=== PATIENT | female | born 1945 | race Caucasian/White ===

== ENCOUNTER → 2018-12-17 21:41 | Outpatient (CLI) | payer MEDICARE, SELFPAY ==
[2018-12-17 19:07] VITALS: BMI 27.1
== END ==
PROVIDERS: Family Provider Nurse Practitioner; PCP Nurse Practitioner; Referring Provider Nurse Practitioner; Visit Provider Nurse Practitioner
DX: N30.90 Cystitis, unspecified without hematuria (principal)
CPT/HCPCS: 87086; 87088

== ENCOUNTER → 2018-12-27 22:47 | Outpatient (CLI) | payer MEDICARE, SELFPAY ==
[2018-12-17 19:07] VITALS: BMI 27.1
[2018-12-27 22:54] LABS: Absolute Lymphocyte Count 1.95 X10^3/ul (0.83-4.51); Absolute Neutrophil Count 4.6 X10^3/uL (2.0-7.7); Basophil# 0.04 X10^3/uL; Basophil% 0.5 % (0-1); Eosinophil# 0.26 X10^3/uL; Eosinophils% 3.5 % (0-5); Hemoglobin 13.5 g/dl (12.0-15.0); Lymphocyte # 1.95 X10^3/ul (4.0); Lymphocyte % 26.5 % (19-41); Mean Corp Hgb Conc 32.1 g/gl (32-36); Mean Corpuscular Hgb 30.9 pg (27.0-32.0); Mean Corpuscular Volume 96.1 fL (81-99); Mean Platelet Vol. 11.5 fl (6.2-12.0); Monocyte% 6.8 % (0-10); Neutrophil % 62.6 % (47-70); POSITIVE COUNT NO; POSITIVE DIFFERENTIAL NO; POSITIVE MORPHOLOGY NO; Platelet Count 222 K/mm3 (150-450); RBC Distribution Width CV 12.7 % (11.6-14.6); RBC Distribution Width SD 44.3 fl (35.1-43.9); Red Blood Count 4.37 M/mm3 (4.2-5.4); White Blood Count 7.4 K/mm3 (4.4-11.0)
[2018-12-27 23:07] LABS: ALB/GLOB Ratio 1.2 RATIO (0.9-2.4); AST(SGOT) 17 U/L (15-37); Alanine Aminotransfer ALT/SGPT 23 U/L (13-56); Albumin, Serum 4.1 g/dL (3.2-5.0); Alkaline Phosphatase 125 U/L (45-117); Anion Gap 8 (5-15); BUN 17 mg/dL (7-18); BUN/Creat Ratio 14.7 RATIO (10-20); Chloride 107 mmol/L (98-107); Cholesterol 168 mg/dL (200); Creatinine, Serum 1.16 mg/dL (0.55-1.02); EST Glomerular Filtration Rate 49 mL/min (>60); Est Glom Filt Rate - Afr Amer 59 mL/min (>60); Globulin 3.4 g/dL (2.2-4.2); Glucose 145 mg/dL (74-106); High Density Lipoprotein 48 mg/dL; Protein, Total 7.5 g/dL (6.4-8.2); Rheumatoid Factor < 10.0 IU/mL (<15); Sodium Level 142 mmol/L (136-145); Triglycerides 343 mg/dL; Very Low Density Lipoprotein 69 mg/dL (5-40)
[2018-12-29 15:15] LABS: ANTINUCLEAR ANTIBODIES DIRECT NEGATIVE
== END ==
PROVIDERS: Family Provider Nurse Practitioner; PCP Nurse Practitioner; Referring Provider Nurse Practitioner; Visit Provider Nurse Practitioner
DX: M19.90 Unspecified osteoarthritis, unspecified site (principal); M25.50 Pain in unspecified joint; I10 Essential (primary) hypertension; E78.5 Hyperlipidemia, unspecified
CPT/HCPCS: 80053; 80061; 85025; 86038; 86225; 86235; 86431

== ENCOUNTER → 2019-01-22 21:03 | Outpatient (CLI) | payer MEDICARE, SELFPAY ==
[2019-01-17 11:14] VITALS: BMI 27.1
[2019-01-22 21:43] LABS: ALB/GLOB Ratio 1.3 RATIO (0.9-2.4); AST(SGOT) 19 U/L (15-37); Alanine Aminotransfer ALT/SGPT 20 U/L (13-56); Albumin, Serum 4.2 g/dL (3.2-5.0); Alkaline Phosphatase 101 U/L (45-117); Anion Gap 5 (5-15); BUN 25 mg/dL (7-18); Chloride 109 mmol/L (98-107); Creatinine, Serum 1.19 mg/dL (0.55-1.02); EST Glomerular Filtration Rate 47 mL/min (>60); Est Glom Filt Rate - Afr Amer 57 mL/min (>60); Globulin 3.3 g/dL (2.2-4.2); Glucose 98 mg/dL (74-106); Potassium 4.2 mmol/L (3.5-5.1); Protein, Total 7.5 g/dL (6.4-8.2); Sodium Level 139 mmol/L (136-145)
== END ==
PROVIDERS: Family Provider Nurse Practitioner; PCP Nurse Practitioner; Referring Provider Nurse Practitioner; Visit Provider Nurse Practitioner
DX: E78.1 Pure hyperglyceridemia (principal); R73.9 Hyperglycemia, unspecified
CPT/HCPCS: 80053

== ENCOUNTER → 2019-04-05 | Outpatient (CLI) | payer MEDICARE, SELFPAY ==
[2019-04-05 15:11] VITALS: BMI 27.5
[2019-04-06 01:07] LABS: Absolute Lymphocyte Count 1.95 X10^3/ul (0.83-4.51); Absolute Neutrophil Count 4.8 X10^3/uL (2.0-7.7); Basophil# 0.04 X10^3/uL; Basophil% 0.5 % (0-1); Eosinophil# 0.27 X10^3/uL; Eosinophils% 3.6 % (0-5); Hemoglobin 12.8 g/dl (12.0-15.0); Lymphocyte # 1.95 X10^3/ul (4.0); Lymphocyte % 25.7 % (19-41); Mean Corp Hgb Conc 32.8 g/gl (32-36); Mean Corpuscular Hgb 31.1 pg (27.0-32.0); Mean Corpuscular Volume 94.9 fL (81-99); Mean Platelet Vol. 11.8 fl (6.2-12.0); Monocyte# 0.56 X10^3/uL; Monocyte% 7.4 % (0-10); Neutrophil # 4.77 X10^3/uL (2.7-7.7); Neutrophil % 62.7 % (47-70); Platelet Count 212 K/mm3 (150-450); RBC Distribution Width CV 12.8 % (11.6-14.6); RBC Distribution Width SD 44.1 fl (35.1-43.9); Red Blood Count 4.11 M/mm3 (4.2-5.4); White Blood Count 7.6 K/mm3 (4.4-11.0)
[2019-04-06 01:12] LABS: POSITIVE COUNT NO; POSITIVE DIFFERENTIAL NO; POSITIVE MORPHOLOGY NO
[2019-04-06 01:25] LABS: ALB/GLOB Ratio 1.1 RATIO (0.9-2.4); AST(SGOT) 17 U/L (15-37); Alanine Aminotransfer ALT/SGPT 18 U/L (13-56); Albumin, Serum 3.8 g/dL (3.2-5.0); Alkaline Phosphatase 110 U/L (45-117); Anion Gap 8 (5-15); BUN 20 mg/dL (7-18); BUN/Creat Ratio 18.5 RATIO (10-20); Chloride 107 mmol/L (98-107); Cholesterol 241 mg/dL (200); Creatinine, Serum 1.08 mg/dL (0.55-1.02); EST Glomerular Filtration Rate 53 mL/min (>60); Est Glom Filt Rate - Afr Amer 64 mL/min (>60); Globulin 3.4 g/dL (2.2-4.2); Glucose 127 mg/dL (74-106); High Density Lipoprotein 43 mg/dL; Protein, Total 7.2 g/dL (6.4-8.2); Sodium Level 139 mmol/L (136-145); Triglycerides 360 mg/dL; Very Low Density Lipoprotein 72 mg/dL (5-40)
== END | disposition home or self-care (01) ==
PROVIDERS: Referring Provider Nurse Practitioner; Visit Provider Nurse Practitioner
DX: Z00.00 Encounter for general adult medical examination without abnormal findings (principal)
CPT/HCPCS: 80053; 80061; 85025

== ENCOUNTER → 2020-03-05 21:15 | Outpatient (CLI) | payer MEDICARE, SELFPAY ==
[2020-03-05 20:34] VITALS: BMI 27.0
[2020-03-05 21:29] LABS: Absolute Lymphocyte Count 2.24 X10^3/uL (0.83-4.51); Absolute Neutrophil Count 3.7 X10^3/uL (2.0-7.7); Basophil# 0.05 X10^3/uL; Basophil% 0.7 % (0-1); Eosinophil# 0.27 X10^3/uL; Eosinophils% 3.9 % (0-5); Hemoglobin 12.6 g/dL (12.0-15.0); Lymphocyte # 2.24 X10^3/ul (4.0); Lymphocyte % 32.7 % (19-41); Mean Corp Hgb Conc 33.2 g/dL (32-36); Mean Corpuscular Hgb 31.6 pg (27.0-32.0); Mean Corpuscular Volume 95.2 fL (81-99); Mean Platelet Vol. 11.2 fl (6.2-12.0); Monocyte# 0.59 X10^3/uL; Monocyte% 8.6 % (0-10); NRBC Flagged by Analyzer 0 % (0-5); Neutrophil # 3.68 X10^3/uL (2.7-7.7); Neutrophil % 53.8 % (47-70); Platelet Count 190 K/mm3 (150-450); RBC Distribution Width CV 12.2 % (11.6-14.6); RBC Distribution Width SD 42.6 fl (35.1-43.9); Red Blood Count 3.99 M/mm3 (4.2-5.4); White Blood Count 6.9 K/mm3 (4.4-11.0)
[2020-03-05 21:36] LABS: ALB/GLOB Ratio 1.1 RATIO (0.9-2.4); AST(SGOT) 14 U/L (15-37); Alanine Aminotransfer ALT/SGPT 22 U/L (13-56); Albumin, Serum 3.9 g/dL (3.2-5.0); Alkaline Phosphatase 104 U/L (45-117); Amylase 64 U/L (25-115); Anion Gap 4 (5-15); BUN 22 mg/dL (7-18); BUN/Creat Ratio 16.9 RATIO (10-20); Calcium,Total 9.3 mg/dL (8.5-10.1); Chloride 110 mmol/L (98-107); EST Glomerular Filtration Rate 43 mL/min (>60); Est Glom Filt Rate - Afr Amer 52 mL/min (>60); Globulin 3.4 g/dL (2.2-4.2); Glucose 106 mg/dL (74-106); Lipase 167 U/L (73-393); Potassium 4.2 mmol/L (3.5-5.1); Protein, Total 7.3 g/dL (6.4-8.2); Sodium Level 142 mmol/L (136-145)
[2020-03-05 21:39] LABS: Erythrocyte Sedimentation Rate 9 mm/hr (0-30)
== END ==
PROVIDERS: PCP Nurse Practitioner; Referring Provider Nurse Practitioner; Visit Provider Nurse Practitioner
DX: K57.92 Diverticulitis of intestine, part unspecified, without perforation or abscess without bleeding (principal); R06.02 Shortness of breath
CPT/HCPCS: 80053; 82150; 83690; 85025; 85652

== ENCOUNTER → 2020-04-04 20:30 | Outpatient (CLI) | payer MEDICARE, SELFPAY ==
[2020-04-04 16:20] VITALS: BMI 27.3
[2020-04-04 20:55] LABS: Vitamin B12 407 pg/mL (211-911)
[2020-04-04 21:02] LABS: CRP < 2.90 mg/L (0.0-3.0); Rheumatoid Factor < 10.0 IU/mL (<15)
[2020-04-09 05:29] LABS: ANTINUCLEAR ANTIBODIES DIRECT Negative (Negative)
== END ==
PROVIDERS: PCP Nurse Practitioner; Referring Provider Nurse Practitioner; Visit Provider Nurse Practitioner
DX: M25.50 Pain in unspecified joint (principal); M19.90 Unspecified osteoarthritis, unspecified site; R53.83 Other fatigue; R53.82 Chronic fatigue, unspecified
CPT/HCPCS: 82607; 84443; 86038; 86140; 86225; 86235; 86431

== ENCOUNTER → 2020-05-17 22:01 | Outpatient (CLI) | payer MEDICARE, SELFPAY ==
[2020-04-04 16:20] VITALS: BMI 27.3
[2020-05-17 22:12] LABS: Absolute Neutrophil Count 6.1 X10^3/uL (2.0-7.7); Basophil# 0.05 X10^3/uL; Basophil% 0.5 % (0-1); Eosinophil# 0.33 X10^3/uL; Eosinophils% 3.5 % (0-5); Hematocrit 39.6 % (37-47); Hemoglobin 12.9 g/dL (12.0-15.0); Lymphocyte % 24.2 % (19-41); Mean Corp Hgb Conc 32.6 g/dL (32-36); Mean Corpuscular Hgb 31.6 pg (27.0-32.0); Mean Corpuscular Volume 97.1 fL (81-99); Mean Platelet Vol. 11.4 fl (6.2-12.0); Monocyte# 0.75 X10^3/uL; Monocyte% 7.9 % (0-10); NRBC Flagged by Analyzer 0 % (0-5); Neutrophil # 6.07 X10^3/uL (2.7-7.7); Neutrophil % 63.7 % (47-70); Platelet Count 205 K/mm3 (150-450); RBC Distribution Width CV 12.1 % (11.6-14.6); Red Blood Count 4.08 M/mm3 (4.2-5.4); White Blood Count 9.5 K/mm3 (4.4-11.0)
[2020-05-17 22:27] LABS: ALB/GLOB Ratio 1.2 RATIO (0.9-2.4); AST(SGOT) 18 U/L (15-37); Alanine Aminotransfer ALT/SGPT 26 U/L (13-56); Albumin, Serum 4.1 g/dL (3.2-5.0); Alkaline Phosphatase 128 U/L (45-117); Anion Gap 6 (5-15); BUN 24 mg/dL (7-18); BUN/Creat Ratio 16.9 RATIO (10-20); Calcium,Total 9.2 mg/dL (8.5-10.1); Chloride 111 mmol/L (98-107); Creatinine, Serum 1.42 mg/dL (0.55-1.02); EST Glomerular Filtration Rate 39 mL/min (>60); Est Glom Filt Rate - Afr Amer 47 mL/min (>60); Globulin 3.3 g/dL (2.2-4.2); Glucose 112 mg/dL (74-106); Potassium 4.2 mmol/L (3.5-5.1); Protein, Total 7.4 g/dL (6.4-8.2); Sodium Level 144 mmol/L (136-145)
== END ==
PROVIDERS: PCP Nurse Practitioner; Referring Provider Nurse Practitioner; Visit Provider Nurse Practitioner
DX: I10 Essential (primary) hypertension (principal); E78.5 Hyperlipidemia, unspecified; E55.9 Vitamin D deficiency, unspecified; R53.83 Other fatigue; R42 Dizziness and giddiness
CPT/HCPCS: 80053; 82652; 85025; 86664; 86665

== ENCOUNTER → 2020-07-09 20:56 | Outpatient (CLI) | payer MEDICARE, SELFPAY ==
[2020-07-09 13:52] VITALS: BMI 27.3
[2020-07-09 21:22] LABS: ALB/GLOB Ratio 1.1 RATIO (0.9-2.4); AST(SGOT) 12 U/L (15-37); Alanine Aminotransfer ALT/SGPT 21 U/L (13-56); Albumin, Serum 3.9 g/dL (3.2-5.0); Alkaline Phosphatase 131 U/L (45-117); Anion Gap 8 (5-15); BUN 14 mg/dL (7-18); Calcium,Total 9.2 mg/dL (8.5-10.1); Chloride 108 mmol/L (98-107); Creatinine, Serum 1.27 mg/dL (0.55-1.02); EST Glomerular Filtration Rate 44 mL/min (>60); Est Glom Filt Rate - Afr Amer 53 mL/min (>60); Globulin 3.4 g/dL (2.2-4.2); Glucose 135 mg/dL (74-106); Potassium 3.6 mmol/L (3.5-5.1); Protein, Total 7.3 g/dL (6.4-8.2); Sodium Level 143 mmol/L (136-145)
== END ==
PROVIDERS: PCP Nurse Practitioner; Visit Provider Nurse Practitioner
DX: M48.061 Spinal stenosis, lumbar region without neurogenic claudication (principal)
CPT/HCPCS: 80053

== ENCOUNTER → 2020-08-21 21:18 | Outpatient (CLI) | payer MEDICARE, SELFPAY ==
[2020-08-17 17:22] VITALS: BMI 28.0
[2020-08-21 22:15] LABS: Anion Gap 8 (5-15); BUN 23 mg/dL (7-18); BUN/Creat Ratio 15.9 RATIO (10-20); Calcium,Total 9.4 mg/dL (8.5-10.1); Chloride 106 mmol/L (98-107); Creatinine, Serum 1.45 mg/dL (0.55-1.02); EST Glomerular Filtration Rate 38 mL/min (>60); Est Glom Filt Rate - Afr Amer 45 mL/min (>60); Glucose 112 mg/dL (74-106); Phosphorus 3.6 mg/dL (2.5-4.9); Potassium 4.1 mmol/L (3.5-5.1); Sodium Level 140 mmol/L (136-145)
[2020-08-23 16:08] LABS: Albumin 4.3 g/dL (2.9-4.4); Alpha-1-Globulins 0.2 g/dL (0.0-0.4); Gamma Globulin 0.9 g/dL (0.4-1.8); Immunoglobulin A 146 mg/dL (64-422); Immunoglobulin G 852 mg/dL (586-1602); Immunoglobulin M 105 mg/dL (26-217); PROEL- TOTAL PROTEIN 7.5 g/dL (6.0-8.5)
[2020-08-24 16:08] LABS: PROELU- Albumin, Urine 33.9 % (.); PROELU- Alpha-1-Globulin,Ur 4.5 % (.); PROELU- Alpha-2-Globulin,Ur 25.4 % (.); PROELU- Beta Globulin, Ur 21.7 % (.); PROELU- Gamma Globulin, Ur 14.5 % (.); Total Protein, Ur 11.5 mg/dL (Not Estab.)
== END ==
PROVIDERS: PCP Nurse Practitioner; Referring Provider Nurse Practitioner; Visit Provider Nurse Practitioner
DX: N18.30 Chronic kidney disease, stage 3 unspecified (principal); E55.9 Vitamin D deficiency, unspecified
CPT/HCPCS: 80048; 82306; 82784; 84100; 84165; 84166; 86334

== ENCOUNTER → 2020-10-01 17:27 | Outpatient (CLI) | payer MEDICARE, SELFPAY | PROVIDERS: PCP Nurse Practitioner; Referring Provider Nurse Practitioner; Visit Provider Nurse Practitioner | DX: Z20.828 Contact with and (suspected) exposure to other viral communicable diseases (principal) | CPT/HCPCS: 87635; C9803; U0003 ==

== ENCOUNTER → 2020-11-23 22:12 | Outpatient (CLI) | payer MEDICARE, SELFPAY ==
[2020-11-23 14:45] VITALS: BMI 28.8
[2020-11-23 22:32] LABS: Absolute Lymphocyte Count 1.95 X10^3/uL (0.83-4.51); Absolute Neutrophil Count 6.8 X10^3/uL (2.0-7.7); Basophil# 0.06 X10^3/uL; Basophil% 0.6 % (0-1); Eosinophil# 0.23 X10^3/uL; Eosinophils% 2.4 % (0-5); Hematocrit 40.1 % (37-47); Hemoglobin 12.8 g/dL (12.0-15.0); Lymphocyte # 1.95 X10^3/ul (4.0); Lymphocyte % 20.1 % (19-41); Mean Corp Hgb Conc 31.9 g/dL (32-36); Mean Corpuscular Hgb 30.8 pg (27.0-32.0); Mean Corpuscular Volume 96.6 fL (81-99); Mean Platelet Vol. 11.5 fl (6.2-12.0); Monocyte# 0.69 X10^3/uL; Monocyte% 7.1 % (0-10); NRBC Flagged by Analyzer 0 % (0-5); Neutrophil # 6.75 X10^3/uL (2.7-7.7); Neutrophil % 69.6 % (47-70); Platelet Count 214 K/mm3 (150-450); RBC Distribution Width CV 12.4 % (11.6-14.6); RBC Distribution Width SD 43.9 fl (35.1-43.9); Red Blood Count 4.15 M/mm3 (4.2-5.4); White Blood Count 9.7 K/mm3 (4.4-11.0)
[2020-11-23 22:49] LABS: ALB/GLOB Ratio 1.1 RATIO (0.9-2.4); AST(SGOT) 16 U/L (15-37); Alanine Aminotransfer ALT/SGPT 24 U/L (13-56); Alkaline Phosphatase 133 U/L (45-117); Anion Gap 6 (5-15); BUN 19 mg/dL (7-18); BUN/Creat Ratio 14.5 RATIO (10-20); Calcium,Total 9.2 mg/dL (8.5-10.1); Chloride 106 mmol/L (98-107); Creatinine, Serum 1.31 mg/dL (0.55-1.02); EST Glomerular Filtration Rate 42 mL/min (>60); Est Glom Filt Rate - Afr Amer 51 mL/min (>60); Globulin 3.5 g/dL (2.2-4.2); Glucose 126 mg/dL (74-106); Potassium 3.9 mmol/L (3.5-5.1); Protein, Total 7.5 g/dL (6.4-8.2); Sodium Level 138 mmol/L (136-145)
== END ==
PROVIDERS: PCP Nurse Practitioner; Visit Provider Nurse Practitioner
DX: K57.92 Diverticulitis of intestine, part unspecified, without perforation or abscess without bleeding (principal)
CPT/HCPCS: 80053; 85025

== ENCOUNTER → 2021-01-11 22:12 | Outpatient (CLI) | payer MEDICARE, SELFPAY ==
[2021-01-11 17:09] VITALS: BMI 28.5
== END ==
PROVIDERS: PCP Nurse Practitioner; Visit Provider Nurse Practitioner
DX: N30.90 Cystitis, unspecified without hematuria (principal)
CPT/HCPCS: 87086; 87088; 87186

== ENCOUNTER → 2021-01-23 22:48 | Outpatient (CLI) | payer MEDICARE, SELFPAY ==
[2021-01-11 17:09] VITALS: BMI 28.5
[2021-01-23 23:29] LABS: ALB/GLOB Ratio 1.1 RATIO (0.9-2.4); AST(SGOT) 19 U/L (15-37); Alanine Aminotransfer ALT/SGPT 24 U/L (13-56); Alkaline Phosphatase 118 U/L (45-117); Anion Gap 3 (5-15); BUN 13 mg/dL (7-18); BUN/Creat Ratio 10.8 RATIO (10-20); Calcium,Total 9.3 mg/dL (8.5-10.1); Chloride 107 mmol/L (98-107); Cholesterol 175 mg/dL (200); EST Glomerular Filtration Rate 47 mL/min (>60); Est Glom Filt Rate - Afr Amer 56 mL/min (>60); Globulin 3.6 g/dL (2.2-4.2); Glucose 92 mg/dL (74-106); High Density Lipoprotein 53 mg/dL; Potassium 4.3 mmol/L (3.5-5.1); Protein, Total 7.6 g/dL (6.4-8.2); Sodium Level 139 mmol/L (136-145); Triglycerides 217 mg/dL; Very Low Density Lipoprotein 43 mg/dL (5-40)
== END ==
PROVIDERS: PCP Nurse Practitioner; Visit Provider Nurse Practitioner
DX: E78.5 Hyperlipidemia, unspecified (principal)
CPT/HCPCS: 80053; 80061

== ENCOUNTER → 2021-03-21 21:31 | Outpatient (CLI) | payer MEDICARE, SELFPAY ==
[2021-03-11 11:36] VITALS: BMI 27.7
== END ==
PROVIDERS: PCP Nurse Practitioner; Referring Provider Nurse Practitioner; Visit Provider Nurse Practitioner
DX: N30.90 Cystitis, unspecified without hematuria (principal)
CPT/HCPCS: 87086; 87088; 87186

== ENCOUNTER → 2021-04-08 21:23 | Outpatient (CLI) | payer MEDICARE, SELFPAY ==
[2021-04-08 17:00] VITALS: BMI 28.5
[2021-04-08 21:50] LABS: Cholesterol 232 mg/dL (200); High Density Lipoprotein 53 mg/dL; Triglycerides 301 mg/dL; Very Low Density Lipoprotein 60 mg/dL (5-40)
== END ==
PROVIDERS: PCP Nurse Practitioner; Visit Provider Nurse Practitioner
DX: I10 Essential (primary) hypertension (principal)
CPT/HCPCS: 80061

== ENCOUNTER → 2022-03-08 | Outpatient (CLI) | payer MEDICARE, SELFPAY | END | disposition home or self-care (01) | LOC: LABSPEC 04:09 | PROVIDERS: PCP Nurse Practitioner; Referring Provider Nurse Practitioner; Visit Provider Nurse Practitioner | DX: N30.90 Cystitis, unspecified without hematuria (principal) | CPT/HCPCS: 87077; 87086; 87088; 87186 ==

== ENCOUNTER → 2022-04-16 | Outpatient (CLI) | payer MEDICARE, SELFPAY ==
[2022-04-16 22:24] LABS: Absolute Lymphocyte Count 2.19 X10^3/uL (0.83-4.51); Absolute Neutrophil Count 5.4 X10^3/uL (2.0-7.7); Basophil# 0.07 X10^3/uL; Basophil% 0.8 % (0-1); Eosinophil# 0.29 X10^3/uL; Eosinophils% 3.4 % (0-5); Hematocrit 38.7 % (37-47); Hemoglobin 12.8 g/dL (12.0-15.0); Lymphocyte # 2.19 X10^3/ul (0.83-4.51); Lymphocyte % 25.6 % (19-41); Mean Corp Hgb Conc 33.1 g/dL (32-36); Mean Corpuscular Hgb 32.1 pg (27.0-32.0); Mean Platelet Vol. 11.6 fl (6.2-12.0); Monocyte# 0.58 X10^3/uL; Monocyte% 6.8 % (0-10); NRBC Flagged by Analyzer 0 % (0-5); Neutrophil # 5.41 X10^3/uL (2.7-7.7); Neutrophil % 63.2 % (47-70); Platelet Count 206 K/mm3 (150-450); RBC Distribution Width CV 12.3 % (11.6-14.6); RBC Distribution Width SD 43.9 fl (35.1-43.9); Red Blood Count 3.99 M/mm3 (4.2-5.4); White Blood Count 8.6 K/mm3 (4.4-11.0)
[2022-04-16 22:42] LABS: ALB/GLOB Ratio 1.2 RATIO (0.9-2.4); AST(SGOT) 18 U/L (15-37); Alanine Aminotransfer ALT/SGPT 24 U/L (13-56); Albumin, Serum 3.9 g/dL (3.2-5.0); Alkaline Phosphatase 140 U/L (45-117); Anion Gap 6 (5-15); BUN 17 mg/dL (7-18); Calcium,Total 9.1 mg/dL (8.5-10.1); Chloride 109 mmol/L (98-107); Cholesterol 165 mg/dL (200); Creatinine, Serum 1.54 mg/dL (0.55-1.02); EST Glomerular Filtration Rate 35 mL/min (>60); Est Glom Filt Rate - Afr Amer 42 mL/min (>60); Globulin 3.2 g/dL (2.2-4.2); Glucose 134 mg/dL (74-106); High Density Lipoprotein 47 mg/dL; Potassium 4.3 mmol/L (3.5-5.1); Protein, Total 7.1 g/dL (6.4-8.2); Sodium Level 141 mmol/L (136-145); Triglycerides 337 mg/dL; Very Low Density Lipoprotein 67 mg/dL (5-40)
== END | disposition home or self-care (01) ==
PROVIDERS: PCP Nurse Practitioner; Visit Provider Nurse Practitioner
DX: I10 Essential (primary) hypertension (principal); E78.5 Hyperlipidemia, unspecified
CPT/HCPCS: 80053; 80061; 85025

== ENCOUNTER → 2022-06-11 | Outpatient (CLI) | payer MEDICARE, SELFPAY | END | disposition home or self-care (01) | PROVIDERS: PCP Nurse Practitioner; Visit Provider Nurse Practitioner | DX: N30.90 Cystitis, unspecified without hematuria (principal) | CPT/HCPCS: 87077; 87086; 87088; 87186 ==

== ENCOUNTER → 2022-09-16 | Outpatient (CLI) | payer MEDICARE, SELFPAY | END | disposition home or self-care (01) | PROVIDERS: PCP Nurse Practitioner; Visit Provider Nurse Practitioner | DX: N30.90 Cystitis, unspecified without hematuria (principal) | CPT/HCPCS: 87086; 87088 ==

== ENCOUNTER → 2023-02-02 | Outpatient (CLI) | payer MEDICARE, SELFPAY ==
[2023-02-02 21:01] LABS: Absolute Lymphocyte Count 2.14 X10^3/uL (0.83-4.51); Absolute Neutrophil Count 3.4 X10^3/uL (2.0-7.7); Basophil# 0.04 X10^3/uL; Basophil% 0.6 % (0-1); Eosinophil# 0.26 X10^3/uL; Eosinophils% 4.1 % (0-5); Hematocrit 41.6 % (37-47); Hemoglobin 13.2 g/dL (12.0-15.0); Lymphocyte # 2.14 X10^3/ul (0.83-4.51); Lymphocyte % 33.4 % (19-41); Mean Corp Hgb Conc 31.7 g/dL (32-36); Mean Corpuscular Hgb 31.7 pg (27.0-32.0); Mean Corpuscular Volume 99.8 fL (81-99); Monocyte# 0.52 X10^3/uL; Monocyte% 8.1 % (0-10); NRBC Flagged by Analyzer 0 % (0-5); Neutrophil # 3.43 X10^3/uL (2.7-7.7); Neutrophil % 53.6 % (47-70); Platelet Count 192 K/mm3 (150-450); RBC Distribution Width CV 12.3 % (11.6-14.6); RBC Distribution Width SD 45.2 fl (35.1-43.9); Red Blood Count 4.17 M/mm3 (4.2-5.4); White Blood Count 6.4 K/mm3 (4.4-11.0)
[2023-02-02 21:23] LABS: ALB/GLOB Ratio 1.2 RATIO (0.9-2.4); AST(SGOT) 16 U/L (15-37); Alanine Aminotransfer ALT/SGPT 25 U/L (13-56); Albumin, Serum 3.7 g/dL (3.2-5.0); Alkaline Phosphatase 118 U/L (45-117); Anion Gap 1 (5-15); BUN 20 mg/dL (7-18); BUN/Creat Ratio 14.3 RATIO (10-20); CRP, High Sensitivity Cardiac 0.79 mg/L; Calcium,Total 9.4 mg/dL (8.5-10.1); Chloride 111 mmol/L (98-107); EST Glomerular Filtration Rate 39 mL/min (>60); Est Glom Filt Rate - Afr Amer 47 mL/min (>60); Globulin 3.2 g/dL (2.2-4.2); Glucose 114 mg/dL (74-106); Potassium 4.4 mmol/L (3.5-5.1); Protein, Total 6.9 g/dL (6.4-8.2); Sodium Level 141 mmol/L (136-145); Thyroid Stim Hormone (TSH) 1.76 uIU/mL (0.358-3.74)
[2023-02-03 08:17] LABS: Troponin-I HS 4 pg/mL (3.0-54.0)
[2023-02-03 12:37] LABS: Uric Acid 6.5 mg/dL (2.6-6.0)
[2023-02-04 15:08] LABS: CMV Acute Antibody IgM < 30.0 AU/mL (0.0-29.9); EBV Acute VCA IgM < 36.0 U/mL (0.0-35.9); Lyme Scn Total Ab w/Rflx Negative (Negative)
== END | disposition home or self-care (01) ==
PROVIDERS: PCP Nurse Practitioner; Visit Provider Nurse Practitioner
DX: M25.50 Pain in unspecified joint (principal); R53.83 Other fatigue; M15.0 Primary generalized (osteo)arthritis; R42 Dizziness and giddiness; I10 Essential (primary) hypertension
CPT/HCPCS: 80053; 82607; 84443; 84484; 84550; 85025; 86141; 86618; 86645; 86664; 86665

== ENCOUNTER → 2023-02-25 | Outpatient (CLI) | payer MEDICARE, SELFPAY ==
[2023-02-25 21:24] LABS: Absolute Lymphocyte Count 1.64 X10^3/uL (0.83-4.51); Absolute Neutrophil Count 4.4 X10^3/uL (2.0-7.7); Basophil# 0.04 X10^3/uL; Basophil% 0.6 % (0-1); Eosinophil# 0.28 X10^3/uL; Hematocrit 41.2 % (37-47); Hemoglobin 13.4 g/dL (12.0-15.0); Lymphocyte # 1.64 X10^3/ul (0.83-4.51); Lymphocyte % 23.4 % (19-41); Mean Corp Hgb Conc 32.5 g/dL (32-36); Mean Corpuscular Hgb 32.1 pg (27.0-32.0); Mean Corpuscular Volume 98.6 fL (81-99); Mean Platelet Vol. 11.3 fl (6.2-12.0); Monocyte% 8.6 % (0-10); NRBC Flagged by Analyzer 0 % (0-5); Neutrophil # 4.42 X10^3/uL (2.7-7.7); Neutrophil % 63.1 % (47-70); Platelet Count 213 K/mm3 (150-450); RBC Distribution Width CV 12.3 % (11.6-14.6); RBC Distribution Width SD 44.4 fl (35.1-43.9); Red Blood Count 4.18 M/mm3 (4.2-5.4)
[2023-02-25 21:37] LABS: ALB/GLOB Ratio 1.1 RATIO (0.9-2.4); AST(SGOT) 14 U/L (15-37); Alanine Aminotransfer ALT/SGPT 25 U/L (13-56); Albumin, Serum 3.7 g/dL (3.2-5.0); Alkaline Phosphatase 131 U/L (45-117); Anion Gap 8 (5-15); BUN 15 mg/dL (7-18); BUN/Creat Ratio 12.5 RATIO (10-20); Calcium,Total 9.2 mg/dL (8.5-10.1); Chloride 107 mmol/L (98-107); EST Glomerular Filtration Rate 46 mL/min (>60); Est Glom Filt Rate - Afr Amer 56 mL/min (>60); Globulin 3.5 g/dL (2.2-4.2); Glucose 90 mg/dL (74-106); Protein, Total 7.2 g/dL (6.4-8.2); Sodium Level 143 mmol/L (136-145)
[2023-03-02 14:08] LABS: Vitamin D 1,25-Dihydroxy 43.8 pg/mL (24.8-81.5)
== END | disposition home or self-care (01) ==
PROVIDERS: PCP Nurse Practitioner; Visit Provider Nurse Practitioner
DX: E55.9 Vitamin D deficiency, unspecified (principal); N18.32 Chronic kidney disease, stage 3b
CPT/HCPCS: 80053; 82652; 85025

== ENCOUNTER → 2023-02-26 | Outpatient (CLI) | payer MEDICARE, SELFPAY | END | disposition home or self-care (01) | PROVIDERS: PCP Nurse Practitioner; Referring Provider Nurse Practitioner; Visit Provider Nurse Practitioner | DX: N18.32 Chronic kidney disease, stage 3b (principal) ==

== ENCOUNTER → 2023-03-30 | Outpatient (CLI) | payer MEDICARE, SELFPAY ==
[2023-03-30 23:08] LABS: Absolute Lymphocyte Count 2.17 X10^3/uL (0.83-4.51); Absolute Neutrophil Count 4.2 X10^3/uL (2.0-7.7); Basophil# 0.05 X10^3/uL; Basophil% 0.7 % (0-1); Eosinophil# 0.31 X10^3/uL; Eosinophils% 4.1 % (0-5); Hemoglobin 12.9 g/dL (12.0-15.0); Lymphocyte # 2.17 X10^3/ul (0.83-4.51); Lymphocyte % 28.7 % (19-41); Mean Corp Hgb Conc 32.3 g/dL (32-36); Mean Corpuscular Hgb 31.9 pg (27.0-32.0); Mean Corpuscular Volume 98.8 fL (81-99); Mean Platelet Vol. 11.7 fl (6.2-12.0); Monocyte# 0.75 X10^3/uL; Monocyte% 9.9 % (0-10); NRBC Flagged by Analyzer 0 % (0-5); Neutrophil # 4.24 X10^3/uL (2.7-7.7); Neutrophil % 56.2 % (47-70); Platelet Count 205 K/mm3 (150-450); RBC Distribution Width CV 11.9 % (11.6-14.6); RBC Distribution Width SD 43.7 fl (35.1-43.9); Red Blood Count 4.05 M/mm3 (4.2-5.4); White Blood Count 7.6 K/mm3 (4.4-11.0)
[2023-03-30 23:21] LABS: AST(SGOT) 12 U/L (15-37); Alanine Aminotransfer ALT/SGPT 15 U/L (13-56); Albumin, Serum 3.7 g/dL (3.2-5.0); Alkaline Phosphatase 191 U/L (45-117); Anion Gap 6 (5-15); BUN 19 mg/dL (7-18); BUN/Creat Ratio 17.3 RATIO (10-20); Calcium,Total 9.4 mg/dL (8.5-10.1); Chloride 107 mmol/L (98-107); EST Glomerular Filtration Rate 51 mL/min (>60); Est Glom Filt Rate - Afr Amer 62 mL/min (>60); Globulin 3.6 g/dL (2.2-4.2); Glucose 109 mg/dL (74-106); Potassium 4.2 mmol/L (3.5-5.1); Protein, Total 7.3 g/dL (6.4-8.2); Sodium Level 140 mmol/L (136-145)
[2023-03-30 23:35] LABS: Microalbumin,Random Urine 6.8 mg/L (NO RANGE EST.); Protein, Urine (Random) 7.2 mg/dL (<11.9); Protein:Creat Ratio 94 mg/g CRE (0-200)
[2023-03-31 08:55] LABS: PTHIN 51.4 pg/mL (18.4-80.1)
== END | disposition home or self-care (01) ==
PROVIDERS: PCP Nurse Practitioner; Visit Provider Nurse Practitioner
DX: E55.9 Vitamin D deficiency, unspecified (principal); N18.32 Chronic kidney disease, stage 3b; M25.50 Pain in unspecified joint
CPT/HCPCS: 80053; 82043; 82306; 82570; 83970; 84156; 85025

== ENCOUNTER → 2023-04-16 | Outpatient (CLI) | payer MEDICARE, SELFPAY ==
[2023-04-16 20:54] LABS: Absolute Lymphocyte Count 2.43 X10^3/uL (0.83-4.51); Absolute Neutrophil Count 4.4 X10^3/uL (2.0-7.7); Basophil# 0.07 X10^3/uL; Basophil% 0.9 % (0-1); Eosinophil# 0.33 X10^3/uL; Eosinophils% 4.2 % (0-5); Hematocrit 41.4 % (37-47); Hemoglobin 13.6 g/dL (12.0-15.0); Lymphocyte # 2.43 X10^3/ul (0.83-4.51); Lymphocyte % 30.8 % (19-41); Mean Corp Hgb Conc 32.9 g/dL (32-36); Mean Corpuscular Hgb 31.9 pg (27.0-32.0); Mean Platelet Vol. 11.4 fl (6.2-12.0); Monocyte# 0.62 X10^3/uL; Monocyte% 7.9 % (0-10); NRBC Flagged by Analyzer 0 % (0-5); Neutrophil # 4.41 X10^3/uL (2.7-7.7); Neutrophil % 55.9 % (47-70); Platelet Count 226 K/mm3 (150-450); RBC Distribution Width CV 12.1 % (11.6-14.6); RBC Distribution Width SD 43.3 fl (35.1-43.9); Red Blood Count 4.27 M/mm3 (4.2-5.4); White Blood Count 7.9 K/mm3 (4.4-11.0)
[2023-04-16 21:04] LABS: ALB/GLOB Ratio 1.1 RATIO (0.9-2.4); AST(SGOT) 16 U/L (15-37); Alanine Aminotransfer ALT/SGPT 19 U/L (13-56); Albumin, Serum 3.8 g/dL (3.2-5.0); Alkaline Phosphatase 198 U/L (45-117); Anion Gap 8 (5-15); BUN 20 mg/dL (7-18); Calcium,Total 9.3 mg/dL (8.5-10.1); Chloride 106 mmol/L (98-107); Creatinine, Serum 1.33 mg/dL (0.55-1.02); EST Glomerular Filtration Rate 41 mL/min (>60); Est Glom Filt Rate - Afr Amer 50 mL/min (>60); Globulin 3.6 g/dL (2.2-4.2); Glucose 123 mg/dL (74-106); Potassium 4.1 mmol/L (3.5-5.1); Protein, Total 7.4 g/dL (6.4-8.2); Sodium Level 141 mmol/L (136-145)
== END | disposition home or self-care (01) ==
PROVIDERS: PCP Nurse Practitioner; Visit Provider Nurse Practitioner
DX: N30.90 Cystitis, unspecified without hematuria (principal)
CPT/HCPCS: 80053; 85025; 87086; 87088

== ENCOUNTER → 2023-09-08 | Outpatient (CLI) | payer MEDICARE, SELFPAY | END | disposition home or self-care (01) | PROVIDERS: PCP Nurse Practitioner; Visit Provider Nurse Practitioner | DX: N30.90 Cystitis, unspecified without hematuria (principal) | CPT/HCPCS: 87086; 87088 ==

== ENCOUNTER → 2023-10-05 | Outpatient (CLI) | payer MEDICARE, SELFPAY | END | disposition home or self-care (01) | PROVIDERS: PCP Nurse Practitioner; Visit Provider Nurse Practitioner | DX: N30.90 Cystitis, unspecified without hematuria (principal) | CPT/HCPCS: 87086 ==

== ENCOUNTER → 2024-01-27 | Outpatient (CLI) | payer MEDICARE, SELFPAY ==
[2024-01-27 23:21] LABS: Absolute Lymphocyte Count 2.22 X10^3/uL (0.83-4.51); Absolute Neutrophil Count 4.6 X10^3/uL (2.0-7.7); Basophil# 0.06 X10^3/uL; Basophil% 0.8 % (0-1); Eosinophil# 0.31 X10^3/uL; Hematocrit 41.7 % (37-47); Hemoglobin 13.4 g/dL (12.0-15.0); Lymphocyte # 2.22 X10^3/ul (0.83-4.51); Lymphocyte % 28.9 % (19-41); Mean Corp Hgb Conc 32.1 g/dL (32-36); Mean Corpuscular Hgb 31.5 pg (27.0-32.0); Mean Corpuscular Volume 97.9 fL (81-99); Mean Platelet Vol. 12.2 fl (6.2-12.0); Monocyte# 0.49 X10^3/uL; Monocyte% 6.4 % (0-10); NRBC Flagged by Analyzer 0 % (0-5); Neutrophil # 4.59 X10^3/uL (2.7-7.7); Neutrophil % 59.6 % (47-70); Platelet Count 222 K/mm3 (150-450); RBC Distribution Width CV 12.4 % (11.6-14.6); RBC Distribution Width SD 44.5 fl (35.1-43.9); Red Blood Count 4.26 M/mm3 (4.2-5.4); White Blood Count 7.7 K/mm3 (4.4-11.0)
[2024-01-27 23:36] LABS: ALB/GLOB Ratio 1.2 RATIO (0.9-2.4); AST(SGOT) 18 U/L (15-37); Alanine Aminotransfer ALT/SGPT 21 U/L (13-56); Alkaline Phosphatase 177 U/L (45-117); Anion Gap 5 (5-15); BUN 20 mg/dL (7-18); BUN/Creat Ratio 13.7 RATIO (10-20); Chloride 110 mmol/L (98-107); Cholesterol 169 mg/dL (200); Creatinine, Serum 1.46 mg/dL (0.55-1.02); EST Glomerular Filtration Rate 37 mL/min (>60); Est Glom Filt Rate - Afr Amer 45 mL/min (>60); Globulin 3.3 g/dL (2.2-4.2); Glucose 128 mg/dL (74-106); High Density Lipoprotein 50 mg/dL; Protein, Total 7.3 g/dL (6.4-8.2); Sodium Level 141 mmol/L (136-145); Triglycerides 285 mg/dL; Very Low Density Lipoprotein 57 mg/dL (5-40)
[2024-01-29 15:08] LABS: EBV Acute VCA IgM < 36.0 U/mL (0.0-35.9)
== END | disposition home or self-care (01) ==
PROVIDERS: PCP Nurse Practitioner; Visit Provider Nurse Practitioner
DX: R53.83 Other fatigue (principal); R51.9 Headache, unspecified; I10 Essential (primary) hypertension; E78.5 Hyperlipidemia, unspecified; M25.50 Pain in unspecified joint
CPT/HCPCS: 80053; 80061; 85025; 86664; 86665

== ENCOUNTER → 2024-03-30 | Outpatient (CLI) | payer MEDICARE, SELFPAY ==
[2024-03-30 20:44] LABS: Absolute Lymphocyte Count 2.14 X10^3/uL (0.83-4.51); Absolute Neutrophil Count 4.6 X10^3/uL (2.0-7.7); Basophil# 0.08 X10^3/uL; Eosinophil# 0.24 X10^3/uL; Eosinophils% 3.1 % (0-5); Hematocrit 40.7 % (37-47); Hemoglobin 13.3 g/dL (12.0-15.0); Lymphocyte # 2.14 X10^3/ul (0.83-4.51); Lymphocyte % 27.6 % (19-41); Mean Corp Hgb Conc 32.7 g/dL (32-36); Mean Corpuscular Hgb 31.7 pg (27.0-32.0); Mean Corpuscular Volume 97.1 fL (81-99); Mean Platelet Vol. 11.3 fl (6.2-12.0); Monocyte# 0.63 X10^3/uL; Monocyte% 8.1 % (0-10); NRBC Flagged by Analyzer 0 % (0-5); Neutrophil # 4.63 X10^3/uL (2.7-7.7); Neutrophil % 59.9 % (47-70); Platelet Count 217 K/mm3 (150-450); RBC Distribution Width CV 12.4 % (11.6-14.6); RBC Distribution Width SD 44.3 fl (35.1-43.9); Red Blood Count 4.19 M/mm3 (4.2-5.4); White Blood Count 7.7 K/mm3 (4.4-11.0)
[2024-03-30 20:53] LABS: Protein, Urine (Random) 6.6 mg/dL (<11.9); Protein:Creat Ratio 28 mg/g CRE (0-200)
[2024-03-30 20:57] LABS: ALB/GLOB Ratio 1.1 RATIO (0.9-2.4); AST(SGOT) 18 U/L (15-37); Alanine Aminotransfer ALT/SGPT 21 U/L (13-56); Albumin, Serum 3.8 g/dL (3.2-5.0); Alkaline Phosphatase 166 U/L (45-117); Anion Gap 5 (5-15); BUN 20 mg/dL (7-18); BUN/Creat Ratio 14.6 RATIO (10-20); Calcium,Total 9.3 mg/dL (8.5-10.1); Chloride 109 mmol/L (98-107); Creatinine, Serum 1.37 mg/dL (0.55-1.02); EST Glomerular Filtration Rate 40 mL/min (>60); Est Glom Filt Rate - Afr Amer 48 mL/min (>60); Globulin 3.4 g/dL (2.2-4.2); Glucose 111 mg/dL (74-106); Potassium 4.2 mmol/L (3.5-5.1); Protein, Total 7.2 g/dL (6.4-8.2); Sodium Level 140 mmol/L (136-145)
[2024-03-31 12:53] LABS: PTHIN 65.8 pg/mL (18.4-80.1)
== END | disposition home or self-care (01) ==
PROVIDERS: PCP Nurse Practitioner; Visit Provider Nurse Practitioner
DX: E55.9 Vitamin D deficiency, unspecified (principal); N18.32 Chronic kidney disease, stage 3b
CPT/HCPCS: 80053; 82570; 82652; 83970; 84156; 85025

== ENCOUNTER → 2024-06-29 | Outpatient (CLI) | payer MEDICARE, SELFPAY | END | disposition home or self-care (01) | PROVIDERS: PCP Nurse Practitioner; Referring Provider Nurse Practitioner; Visit Provider Nurse Practitioner | DX: N30.90 Cystitis, unspecified without hematuria (principal) | CPT/HCPCS: 87086 ==

== ENCOUNTER → 2024-09-29 | Outpatient (CLI) | payer MEDICARE, SELFPAY | END | disposition home or self-care (01) | PROVIDERS: PCP Nurse Practitioner; Visit Provider Nurse Practitioner | DX: N30.90 Cystitis, unspecified without hematuria (principal) | CPT/HCPCS: 87086; 87088 ==

== ENCOUNTER → 2024-12-08 | Outpatient (CLI) | payer MEDICARE, SELFPAY | END | disposition home or self-care (01) | PROVIDERS: PCP Nurse Practitioner; Referring Provider Nurse Practitioner; Visit Provider Nurse Practitioner | DX: N30.90 Cystitis, unspecified without hematuria (principal) | CPT/HCPCS: 87077; 87086; 87088; 87186 ==

== ENCOUNTER → 2025-01-04 | Outpatient (CLI) | payer MEDICARE, SELFPAY | END | disposition home or self-care (01) | PROVIDERS: PCP Nurse Practitioner; Referring Provider Nurse Practitioner; Visit Provider Nurse Practitioner | DX: N30.90 Cystitis, unspecified without hematuria (principal) | CPT/HCPCS: 87077; 87086; 87088; 87186 ==

== ENCOUNTER → 2025-02-28 | Outpatient (CLI) | payer MEDICARE, SELFPAY | END | disposition home or self-care (01) | PROVIDERS: PCP Nurse Practitioner; Referring Provider Nurse Practitioner; Visit Provider Nurse Practitioner | DX: N30.90 Cystitis, unspecified without hematuria (principal); M54.50 Low back pain, unspecified; G89.29 Other chronic pain | CPT/HCPCS: 87086 ==

== ENCOUNTER → 2025-04-05 | Outpatient (CLI) | payer MEDICARE, SELFPAY ==
[2025-04-05 21:36] LABS: Bacteria 0 SEEN /hpf (None Seen); Mucous, Urine 0 SEEN /hpf (<or=2+)
[2025-04-05 21:52] LABS: Absolute Lymphocyte Count 2.17 X10^3/uL (0.83-4.51); Absolute Neutrophil Count 4.9 X10^3/uL (2.0-7.7); Basophil# 0.07 X10^3/uL; Basophil% 0.9 % (0-1); Color, Urine Yellow (Yellow); Eosinophils% 3.7 % (0-5); Glucose, Dipstick Normal (Normal); Hematocrit 40.4 % (37-47); Hemoglobin 13.5 g/dL (12.0-15.0); Ketone-Dipstick Negative (Negative); Leukocyte Esterase-Dipstick 100 /ul (Negative); Lymphocyte # 2.17 X10^3/ul (0.83-4.51); Lymphocyte % 26.5 % (19-41); Mean Corp Hgb Conc 33.4 g/dL (32-36); Mean Corpuscular Hgb 31.8 pg (27.0-32.0); Mean Corpuscular Volume 95.3 fL (81-99); Mean Platelet Vol. 11.7 fl (6.2-12.0); Monocyte# 0.71 X10^3/uL; Monocyte% 8.7 % (0-10); NRBC Flagged by Analyzer 0 % (0-5); Neutrophil % 59.8 % (47-70); Nitrite-Dipstick Negative (Negative); Occult Blood-Urine Negative /ul (Negative); Platelet Count 216 K/mm3 (150-450); Protein-Dipstick 15 mg/dl (Negative); RBC Distribution Width CV 12.2 % (11.6-14.6); RBC Distribution Width SD 42.3 fl (35.1-43.9); Red Blood Count 4.24 M/mm3 (4.2-5.4); Urine Bilirubin Dipstick Negative (Negative); Urine Clarity Clear (Clear); Urine Urobilinogen Normal (Normal); White Blood Count 8.2 K/mm3 (4.4-11.0)
[2025-04-05 22:11] LABS: Red Blood Cells-Urine 0-5 SEEN /hpf (0-5); Squamous Epithelial Cells - UA 0-5 SEEN /hpf (5-10); White Blood Cells 10-25 SEEN /hpf (0-5)
[2025-04-05 22:24] LABS: Protein, Urine (Random) 15.6 mg/dL (0.0-12.0); Protein:Creat Ratio 59 mg/g CRE (0-200)
[2025-04-05 22:31] LABS: PTHIN 83 pg/mL (11-61)
[2025-04-05 22:34] LABS: ALB/GLOB Ratio 1.6 RATIO (0.9-2.4); AST(SGOT) 22 U/L (<=31); Alanine Aminotransfer ALT/SGPT 17 U/L (<=34); Albumin, Serum 4.4 g/dL (3.4-4.8); Alkaline Phosphatase 146 U/L (35-104); Anion Gap 12 (5-15); BUN 21 mg/dL (4-19); BUN/Creat Ratio 15.6 RATIO (10-20); Calcium,Total 9.8 mg/dL (7.6-11.0); Carbon Dioxide 23.5 mmol/L (21.0-32.0); Chloride 106 mmol/L (98-108); Creatinine, Serum 1.35 mg/dL (0.70-1.20); EST Glomerular Filtration Rate 40 (>60); Globulin 2.8 g/dL (2.2-4.2); Glucose 104 mg/dL (70-99); Potassium 4.5 mmol/L (3.3-5.1); Protein, Total 7.2 g/dL (5.9-8.4); Sodium Level 141 mmol/L (133-145); Total Bilirubin 0.66 mg/dL (0.00-1.30); Vitamin D,25 Hydroxy 45.7 ng/mL (30-100)
== END | disposition home or self-care (01) ==
PROVIDERS: PCP Nurse Practitioner; Referring Provider Nurse Practitioner; Visit Provider Nurse Practitioner
DX: N18.32 Chronic kidney disease, stage 3b (principal); E55.9 Vitamin D deficiency, unspecified
CPT/HCPCS: 80053; 81001; 82306; 82570; 83970; 84156; 85025

== ENCOUNTER → 2025-04-28 | Outpatient (CLI) | payer MEDICARE, SELFPAY ==
--- OUTSIDE RECORDS SUMMARY | 2025-04-28 23:06 | XMS RPT_ITS | CCD ---
Author Organization [facility] CliniSyms Care Team Providers Care Pest Control Technician Name Role Phone Cristal Ochoa Unavailable Unavailable Rosi MIRAMONTES, Myrna River Unavailable Unavailable TAYLOR VINCENT Unavailable Unavailabl SHRUTHI Hendrix Unavailable Unavailable SHRUTHI GODINEZ Unavailable Unavailable Cristal Ochoa Unavailable Unavailable FE Bernal, Mildred Li Unavailable Unavailabl e Rodney, Katarina Primary Care Provider Stevens, Katarina Primary Care Provider Stevens, Katarina Primary Care Provider Stevens, Katarina Primary Care Provider Stevens, Katarina Primary Care Provider Stevens, Katarina Primary Care Provider Stevens MED SURG NURSE.Katarina LUGO Primary Care Provide r Stevens FISHER QUAHOG-C, Katarina Primary Care Provider Stevens FISHER QUAHOG-C, Katarina Attending Provider Stevens FISHER QUAHOG-C, Katarina Referring Provider Stevens FISHER QUAHOG-C, Katarina Primary Care Provider Stevens FISHER QUAHOG-C, Katarina Attending Provider Stevens FISHER QUAHOG-C, Katarina Referring Provider Stevens FISHER QUAHOG-C, Katarina Primary Care Provider Stevens FISHER QUAHOG-C, Katarina Attending Provider Stevens FISHER QUAHOG-C, Katarina Referring Provider Stevens FISHER QUAHOG-C, Katarina Primary Care Provider Stevens FISHER QUAHOG-C, Katarina Attending Provider Stevens FISHER QUAHOG-C, Katarina Referring Provider Stevens FISHER QUAHOG, Katarina Primary Care Unavailable Stevens FISHER QUAHOG, Katarina Attending Unavailable Stevens FISHER QUAHOG, Katarina Referring Unavailable Stevens FISHER QUAHOG, Katarina Attending Unavailable Stevens FISHER QUAHOG, Katarina Referring Unavailable Stevens FISHER QUAHOG, Katarina Primary Care Unavailable Stevens FISHER QUAHOG, Katarina Attending Unavailable Stevens FISHER QUAHOG, Katarina Referring Unavailable Stevens FISHER QUAHOG, Katarina Primary Care Unavailable Stevens FISHER QUAHOG, Katarina Primary Care Unavailable Stevens FISHER QUAHOG, Katarina Attending Unavailable Stevens FISHER QUAHOG, Katarina Referring Unavailable Stevens FISHER QUAHOG, Katarina Primary Care Unavailable Stevens FISHER QUAHOG, Katarina Attending Unavailable Stevens FISHER QUAHOG, Katarina Primary Care Unavailable Stevens FISHER QUAHOG, Katarina Attending Unavailable Stevens FISHER QUAHOG, Katarina Referring Unavailable ANTHONY, CHANTELL Admitting Unavailable ANTHONY, CHANTELL Attending Unavailable STEVENS, KATARINA Primary Care Unavailable ANTHONY, CHANTELL Referring Unavailable STEVENS, KATARINA Primary Care Unavailable ANTHONY, CHANTELL Referring Unavailable STEVENS, KATARINA Primary Care Unavailable BIEDENBACH, PREMA Admitting Unavailable BIEDENBACH, PREMA Attending Unavailable STEVENS, KATARINA Primary Care Unavailable BIEDENBACH, PREMA Admitting Unavailable BIEDENBACH, PREMA Attending Unavailable STEVENS, KATARINA Primary Care Unavailable STEVENS, KATARINA Attending Unavailable STEVENS, KATARINA Referring Unavailable STEVENS, KATARINA Primary Care Unavailable BIEDENBACH, PREMA Admitting Unavailable BIEDENBACH, PREMA Attending Unavailable STEVENS, KATARINA Primary Care Unavailable ANTHONY, CHANTELL Attending Unavailable STEVENS, KATARINA Primary Care Unavailable ANTHONY, CHANTELL Attending Unavailable STEVENS, KATARINA Primary Care Unavailable ANTHONY, CHANTELL Admitting Unavailable ANTHONY, CHANTELL Attending Unavailable STEVENS, KATARINA Primary Care Unavailable ANTHONY, CHANTELL Attending Unavailable STEVENS, KATARINA Primary Care Unavailable Allergies Allergy Classification Reported Allergen(s) Allergy Type Date of Onset Reaction(s) Facility Nitrofurantoin (1 source) Nitrofurantoin Drug Allergy 05-09-20 14 Hives [facility] Opioid Agonists (2 sources) Codeine Drug Allergy 05-27-20 18 Nausea And Vomiting [facility] Promethazine (1 source) Promethazine Drug Allergy 11-12-19 18 Other (See Comments) [facility] Sulfonamides (antibiotic) (1 source) Sulfonamides (Antibiotic) Drug Allergy 11-12-19 18 Rash [facility] (6 sources) promethazine drug allergy 05-20-20 17 makes me act drunk, Unknown [facility] Work Phone: (20 sources) nitrofurantoin; Translations: [NITROFURANTOIN] Drug Allergy 05-09-20 14 Hives, Other [facility] (20 sources) promethazine; Translations: [PROMETHAZINE] Drug Allergy 03-16-20 13 Unknown, Other [facility] (20 sources) sulfaSALAzine; Translations: [SULFASALAZINE] Drug Allergy 11-12-19 18 Rash [facility] (10 sources) Promethazine Drug Allergy 11-12-19 18 Other (See Comments) [place] (10 sources) Sulfonamides (Antibiotic) Propensity to adverse reactions to drug 11-12-19 18 Rash [place] (20 sources) Codeine Drug Allergy 11-12-19 20 Nausea And Vomiting, GI Upset, Unknown [place] (20 sources) oxyCODONE Drug Allergy 05-27-20 18 Nausea And Vomiting [place] (4 sources) Other Propensity to adverse reactions 05-27-20 18 Nausea And Vomiting [place] (8 sources) gabapentin Drug Allergy 03-12-20 21 fatigue and sleepiness [facility] (20 sources) predniSONE Drug Allergy 05-25-20 18 Unknown [facility] (18 sources) Sulfonamides (Antibiotic); Translations: [Sulfa (Sulfonamide Antibiotics)] Allergy to substance 05-25-20 18 Swelling [facility] (3 sources) nitrofuratine Allergy to substance 05-25-20 18 hives [facility] Work Phone: (2 sources) Seasonal allergy Allergy to substance 01-17-20 14 Vomiting, Rash [facility] (20 sources) Sulfonamides (Antibiotic) Drug Intolerance 11-12-19 18 Rash, Swelling, Other [facility] (18 sources) Seasonal allergy Environmental allergy 01-17-20 14 Rash, Nausea And Vomiting [facility] (1 source) Codeine Drug Allergy 08-08-20 22 [facility] NEGATED: Highlighted row has been ruled out! (1 source) Other Propensity to adverse reactions 05-27-20 18 Nausea And Vomiting [facility] Work Phone: Medications Current Medications Medication Drug Class(es) Dates Sig (Normalized) Sig (Original) acetaminophen 500 mg oral tablet (20 sources) acetaminophen (T ylenol) 500 MG tablet every 8 hours as needed. Active acetaminophen (T ylenol) 500 MG tablet every 4 hours. Active acetaminophen (T YLENOL) 500 mg tablet Take 1,000 mg by mouth. 0 Active Comment on above: Take 1,000 mg by julieth th. amLODIPine 5 mg oral tablet (20 sources) Dihydropyridine Calcium Channel Mary Start: 10-09-20 End: 03-14-20 take 1 tablet by mouth once daily before breakfast amLODIPine (Norvasc) 5 MG tablet Take 1 tablet by mouth every morning (before breakfast). 04/28/2023 Active Start: 05-20-2017 take 1 tablet by julieth th once daily AMLODIPINE BESYLATE 5 MG TABS One tablet by mouth daily AMLODIPINE BESYLATE [id number] Brady Stephens MD atorvastatin 10 mg oral tablet (20 sources) HMG-CoA Reductase Inhibitor Start: 12-02-2017 take 2 tablets by mouth once daily atorvastatin (LIPITOR) 10 mg tablet Take 20 mg by mouth once daily. 0 12/02/2017 Active Start: 09-08-2017 End: 03-14-2025 take 1 tablet by mouth once daily before breakfast atorvastatin (Lipitor) 10 MG tablet Take 1 tablet by mouth every morning (before breakfast). 04/28/2023 Active Start: 05-20-2017 take 1 tablet by julieth th once daily ATORVASTATIN CALCIUM 10 MG TABS One tablet by mouth daily ATORVASTATIN CALCIUM [id number] Brady Stephens MD Comment on above: Take 20 mg by mouth once daily. baclofen 5 mg oral tablet (19 sources) gamma-Aminobutyric Acid-ergic Agonist Start: 03-15-2025 take 1 tablet by mouth three times daily Baclofen 5 mg tablet Active 5 mg PO THREE TIMES A DAY March 15, 2025 12:00am Start: 02-10-2025 End: 04-14-2025 take 1 tablet by mouth twice daily as needed for pain baclofen (Lioresal) 5 MG tablet Take 1 tablet (5 mg) by mouth 2 times daily as needed (pain). 60 tablet 1 02/10/2025 04/14/2025 Active Start: 07-19-2019 End: 10-06-2019 take 1 tablet by mouth three times daily as needed for muscle spasms Baclofen 10 mg tablet Discontinued 10 mg PO THREE TIMES A DAY as needed for muscle spasms July 19, 2019 12:00am October 06, 2019 4:09pm cholecalciferol 0.05 mg oral tablet (20 sources) Vitamin D cholecalciferol (Vitamin D-3) 50 MCG (1999 UT) tablet Take by mouth daily. Active End: 12-30-2024 take 1 capsule by mouth once daily cholecalciferol (Vitamin D-3) 50 MCG (1999 UT) capsule Take 1 capsule by mouth daily. 12/30/2024 Discontinued Cholecalciferol, Vitamin D3, 50 mcg (2,000 unit) cap Take by mouth. 0 Active Comment on above: Take by mouth. diclofenac sodium 0.01 mg/mg topical gel (2 sources) Nonsteroidal Anti-inflammatory Drug Start: diclofenac sodium (VOLTAREN) 1 % GEL Apply 4 g topically 4 times daily as needed for Pain 300 g 1 02/05/2021 Active gabapentin 300 mg oral capsule (20 sources) Anti-epileptic Agent Start: take 2 capsules by mouth twice daily Gabapentin 300 mg capsule Active 600 mg PO TWICE A DAY 360 August 03, 2024 3:24pm Start: 09-08-2023 take 600 mg by mouth once marilia y Gabapentin Active 600 MG PO DAILY 180 September 08, 2023 4:33pm Start: 03-24-2023 End: 08-03-2024 take 2 capsules by mouth once daily before breakfast gabapentin (Neurontin) 300 MG capsule Take 600 mg by mouth every morning (before breakfast). 03/24/2023 Active Start: 03-24-2023 take 1 capsule by mo uth twice daily gabapentin (Neurontin) 300 MG capsule Take 300 mg by mouth 2 times daily. 03/24/2023 Active Start: 10-08-2022 End: 09-08-2023 take 1 capsule by mouth once daily Gabapentin 300 mg capsule Discontinued 300 mg PO DAILY December 04, 2022 6:23pm September 08, 2023 4:35pm Start: 06-21-2019 End: 04-09-2021 take 1 capsule by mouth twice daily Gabapentin 300 mg capsule Discontinued 300 mg PO TWICE A DAY 180 February 22, 2021 8:25pm April 09, 2021 12:33pm Start: 04-05-2019 End: 06-21-2019 take 1 capsule by mouth three times daily Gabapentin 300 mg capsule Discontinued 300 mg PO THREE TIMES A DAY April 05, 2019 12:00am June 21, 2019 5:20pm Start: 05-25-2018 End: 05-25-2018 take 1 capsule by mouth three times daily Gabapentin 300 mg capsule Discontinued 300 mg PO THREE TIMES A DAY May 25, 2018 12:00am May 25, 2018 3:52pm GABAPENTIN PO Ta ke by mouth 0 Suspended GABAPENTIN PO Ta ke by mouth 0 Active Comment on above: 1 capsule. lisinopril 20 mg oral tablet (20 sources) Angiotensin Converting Enzyme Inhibitor Start: 3 End: 5 take 1 tablet by mouth once daily before breakfast lisinopril 20 MG tablet Take 1 tablet by mouth every morning (before breakfast). 07/22/2023 Active Start: 05-25-2018 End: 12-04-2022 take 1 tablet by mouth once daily Lisinopril 40 mg tablet Discontinued 40 mg PO daily 90 February 11, 2019 5:22pm January 18, 2020 3:10pm Comment on above: lisinopril 20 mg tab let meclizine hydrochloride 12.5 mg oral tablet (15 sources) Antiemetic Start: 3 End: 4 take 1 tablet by mouth three times daily as needed for dizziness Meclizine 12.5 mg tablet Active 12.5 mg PO THREE TIMES A DAY as needed for dizziness 60 January 27, 2024 3:30pm Multiple Vitamin (Multi Vitamin) tablet (20 sources) take 1 tablet by mouth once daily before breakfast Multiple Vitamin (Multi Vitamin) tablet Take 1 tablet by mouth every morning (before breakfast). Active take 1 tablet by mouth once marilia y Multiple Vitamin (Multi Vitamin) tablet Take 1 tablet by mouth daily. Active take 1 tablet by mouth once marilia y Multiple Vitamin (Multi Vitamin) tablet Take 1 tablet by mouth daily. 0 Active Multiple Vitamins-Minerals ( MULTIVITAMIN ADULT PO) (11 sources) Multiple Vitamin s-Minerals (MULTIVITAMIN ADULT PO) Take by mouth 0 Suspended Multiple Vitamin s-Minerals (MULTIVITAMIN ADULT PO) Take by mouth 0 Active Multivitamin preparation (11 sources) Start: 05-25-2018 take 1 tablet by mouth once daily in the morning Multivitamin Active 1 TABLET PO EVERY MORNING May 25, 2018 3:22pm Start: 05-25-2018 take 1 tablet by julieth th once daily in the morning Multivitamin Active 1 TABLET PO EVERY MORNING May 24, 2018 11:00pm Start: 05-25-2018 take 1 tablet by julieth th once daily in the morning Multivitamin Active 1 TABLET PO EVERY MORNING May 25, 2018 12:00am Multivitamin tablet (4 sources) Start: 05-25-2018 Multivitamin t ablet Active 1 {tbl} PO EVERY MORNING May 25, 2018 12:00am Start: 05-25-2018 Multivitamin t ablet Active 1 {tbl} PO EVERY MORNING May 24, 2018 11:00pm predniSONE 20 mg oral tablet (20 sources) Start: 02-22-2024 End: 06-29-2024 take 2 tablets by mouth once daily Prednisone 20 mg tablet Active 40 mg PO DAILY September 13, 2024 5:42pm Start: 09-08-2023 End: 10-05-2023 take 2 tablets by mouth once daily Prednisone 20 mg tablet Discontinued 40 mg PO DAILY October 05, 2023 5:26pm October 05, 2023 5:38pm Start: 09-08-2023 End: 10-05-2023 take 40 mg by mouth once daily Prednisone Discontinued 40 MG PO DAILY October 05, 2023 5:26pm October 05, 2023 5:38pm Start: 06-11-2022 End: 07-25-2022 Prednisone 10 mg tablet Disc ontinued 10 mg PO DAILY June 11, 2022 12:00am July 25, 2022 3:42pm take 4 tabs for 4 days : 2 tabs for 4 days; 1 tab for 4 days 1/2 tab for 2 days Start: 06-21-2019 End: 07-01-2019 take 2 tablets by mouth once daily Prednisone 20 mg tablet Discontinued 40 mg PO DAILY 07 08June 21, 2019 12:00am June 30, 2019 12:00am July 01, 2019 12:09am Start: 06-21-2019 End: 07-01-2019 take 40 mg by mouth once daily Prednisone Discontinued 40 MG PO DAILY 07 08June 21, 2019 12:00am July 01, 2019 12:09am promethazine hydrochloride 12.5 mg oral tablet (20 sources) Phenothiazine Start: 12-06-2021 End: 01-27-2024 take 1 tablet by mouth every six hours as needed for nausea and vomiting Promethazine 12.5 mg tablet Active 12.5 mg PO EVERY 6 HOURS as needed for nausea and vomiting January 27, 2024 3:32pm 1000 ml sodium chloride 9 mg/ml injection (1 source) Start: 01-16-2021 0.9 % sodium chloride infusion traMADol hydrochloride 50 mg oral tablet (20 sources) Opioid Agonist Start: 08-03-2024 End: 03-14-2025 take 1 tablet by mouth at bedtime for pain traMADol (Ultram) 50 MG tablet TAKE 1 TABLET BY MOUTH AT BEDTIME for chronic pain 08/05/2024 Active Completed/Discontinued Medications Medication Drug Class(es) Dates Sig (Normalized) Sig (Original) acetaminophen 325 mg / oxyCODONE hydrochloride 5 mg oral tablet (15 sources) Opioid Agonist Start: 07-19-2019 End: 10-06-2019 Oxycodone-Acetamino phen 5-325 mg tablet Discontinued 1 {tbl} PO Q4H July 19, 2019 October 06, 2019 4:12pm Start: 07-19-2019 End: 10-06-2019 take 1 tablet by mouth every four hours Oxycodone-Acetaminophen Discontinued 1 TABLET PO Q4H July 19, 2019 October 06, 2019 4:12pm Albuterol (9 sources) beta2-Adrenergic Agonist Start: 06-12-2022 End: 12-04-2022 take 2.5 mg by inhalation every six hours Albuterol Sulfate Discontinued 2.5 MG INHALATION EVERY 6 HOURS 75 June 11, 2022 11:00pm December 04, 2022 5:20pm Start: 06-12-2022 End: 12-04-2022 take 2.5 mg by inhalation every six hours Albuterol Sulfate Discontinued 2.5 MG INHALATION EVERY 6 HOURS 75 June 12, 2022 12:00am December 04, 2022 6:20pm Start: 06-12-2022 take 2.5 mg by inhal ation every six hours Albuterol Sulfate Active 2.5 MG INHALATION EVERY 6 HOURS 75 June 11, 2022 11:00pm Start: 06-12-2022 take 2.5 mg by inhal ation every six hours Albuterol Sulfate Active 2.5 MG INHALATION EVERY 6 HOURS 75 June 12, 2022 12:00am Albuterol Sulfate 2.5 mg /3 mL (0.083 %) solution for nebulization (4 sources) Start: 06-12-2022 End: 12-04-2022 take 2.5 mg by inhalation every six hours Albuterol Sulfate 2.5 mg /3 mL (0.083 %) solution for nebulization Discontinued 2.5 mg INHALATION EVERY 6 HOURS 75 June 12, 2022 12:00am December 04, 2022 6:20pm Start: 06-12-2022 End: 12-04-2022 take 2.5 mg by inhalation every six hours Albuterol Sulfate 2.5 mg /3 mL (0.083 %) solution for nebulization Discontinued 2.5 mg INHALATION EVERY 6 HOURS 75 June 11, 2022 11:00pm December 04, 2022 5:20pm amoxicillin 875 mg oral tablet (20 sources) Penicillin-class Antibacterial Start: 06-12-2023 End: 09-08-2023 take 1 tablet by mouth twice daily Amoxicillin 875 mg tablet Discontinued 875 mg PO TWICE A DAY June 12, 2023 12:00am September 08, 2023 4:38pm Start: 02-25-2023 End: 04-16-2023 take 1 tablet by mouth twice daily Amoxicillin 875 mg tablet Discontinued 875 mg PO TWICE A DAY February 25, 2023 3:06pm April 16, 2023 6:55pm Start: 07-18-2021 End: 08-05-2021 take 1 tablet by mouth twice daily Amoxicillin 875 mg tablet Discontinued 875 mg PO TWICE A DAY July 18, 2021 12:00am August 05, 2021 2:56pm Start: 07-09-2020 End: 09-28-2020 take 1 tablet by mouth twice daily Amoxicillin 875 mg tablet Discontinued 875 mg PO TWICE A DAY July 09, 2020 12:00am September 28, 2020 7:44pm amoxicillin 875 mg / clavulanate 125 mg oral tablet (4 sources) Penicillin-class Antibacterial Start: 12-12-2024 End: 12-13-2024 Amoxicillin-Pot Clavulanate 875-125 mg tablet Discontinued 1 {tbl} PO TWICE A DAY December 12, 2024 1:00am December 13, 2024 3:24pm aspirin 81 mg delayed release oral tablet (19 sources) Nonsteroidal Anti-inflammatory Drug Start: 05-25-2018 End: 10-06-2019 take 1 tablet by mouth once daily Aspirin 81 mg tablet,delayed release (DR/EC) Discontinued 81 mg PO daily May 25, 2018 12:00am October 06, 2019 4:09pm Start: 05-13-2017 take 1 tablet by julieth th once daily ASPIRIN EC 81 MG TBEC One tablet by mouth daily ASPIRIN [id number] Myrna Aranda RN azithromycin 250 mg oral tablet (20 sources) Macrolide Antimicrobial Start: 09-24-2022 End: 09-29-2022 take 2 tablets by mouth once daily, then take 1 tablet by mouth once daily at mealtime Azithromycin 250 mg tablet Discontinued 250 mg PO daily 6 September 24, 2022 1:00am September 28, 2022 1:00am September 29, 2022 1:03am 2 po qd for 1 day then 1 po qd for 4 days with food or after eating Start: 07-25-2022 End: 07-30-2022 take 2 tablets by mouth once daily, then take 1 tablet by mouth once daily at mealtime Azithromycin 250 mg tablet Discontinued 250 mg PO daily 6 July 25, 2022 12:00am July 29, 2022 12:00am July 30, 2022 12:03am 2 po qd for 1 day then 1 po qd for 4 days with food or after eating Khcleybboy-Npiqtbyw-Navssxbq ol (12 sources) Corticosteroid, beta2-Adrenergic Agonist Start: 07-25-2022 End: 10-08-2022 Uuvqrtosje-Udqdpbyy-Foacieig ol (Breztri Aerosphere) 160-9-4.8 mcg/actuation HFA aerosol inhaler Discontinued 2 NMA INHALATION TWICE A DAY July 25, 2022 12:00am October 08, 2022 4:37pm Start: 07-25-2022 End: 10-08-2022 Aowslafqrv-Fnwzvmia-Uyfvnrwa ol (Breztri Aerosphere) 160-9-4.8 mcg/actuation HFA aerosol inhaler Discontinued 2 NMA INHALATION TWICE A DAY July 24, 2022 11:00pm October 08, 2022 3:37pm Start: 07-25-2022 End: 10-08-2022 Shemhtgwye-Atignqiu-Pwkilajl ol (Breztri Aerosphere) 160-9-4.8 mcg/actuation HFA aerosol inhaler Discontinued 2 INH INHALATION TWICE A DAY July 24, 2022 11:00pm October 08, 2022 3:37pm Start: 07-25-2022 End: 10-08-2022 Utjfelvqcw-Cselezma-Xcmhoouv ol (Breztri Aerosphere) 160-9-4.8 mcg/actuation HFA aerosol inhaler Discontinued 2 INH INHALATION TWICE A DAY July 25, 2022 12:00am October 08, 2022 4:37pm Start: 07-25-2022 Budesonide-Gly copyr-Formoterol (Breztri Aerosphere) 160-9-4.8 mcg/actuation HFA aerosol inhaler Active 2 INH INHALATION TWICE A DAY July 24, 2022 11:00pm celecoxib 100 mg oral capsule (7 sources) Nonsteroidal Anti-inflammatory Drug Start: 05-13-2017 End: 05-20-2017 take 1 tablet by mouth once daily CELEBREX 100 MG CAPS One tablet by mouth daily CELECOXIB [id number] Myrna Aranda RN cephalexin 500 mg oral capsule (20 sources) Cephalosporin Antibacterial Start: 09-08-2023 End: 10-05-2023 take 1 capsule by mouth twice daily Cephalexin 500 mg capsule Discontinued 500 mg PO TWICE A DAY September 08, 2023 1:00am October 05, 2023 5:27pm Start: 03-07-2022 End: 03-17-2022 take 1 capsule by mouth twice daily Cephalexin 500 mg capsule Discontinued 500 mg PO TWICE A DAY 07 08March 07, 2022 12:00am March 16, 2022 12:00am March 17, 2022 12:03am Start: 02-22-2021 End: 03-04-2021 take 1 capsule by mouth twice daily Cephalexin 500 mg capsule Discontinued 500 mg PO TWICE A DAY 07 08February 22, 2021 12:00am March 03, 2021 12:00am March 04, 2021 12:01am Start: 01-11-2021 End: 01-21-2021 take 1 capsule by mouth twice daily Cephalexin 500 mg capsule Discontinued 500 mg PO TWICE A DAY 07 08January 11, 2021 12:00am January 20, 2021 12:00am January 21, 2021 12:02am Start: 11-14-2019 End: 11-24-2019 take 1 capsule by mouth three times daily Cephalexin 500 mg capsule Discontinued 500 mg PO THREE TIMES A DAY 17 08November 14, 2019 1:00am November 23, 2019 1:00am November 24, 2019 1:08am Start: 12-17-2018 End: 12-27-2018 take 1 capsule by mouth twice daily Cephalexin 500 mg capsule Discontinued 500 mg PO TWICE A DAY December 17, 2018 1:00am December 27, 2018 3:59pm ciprofloxacin 500 mg oral tablet (20 sources) Quinolone Antimicrobial Start: 09-28-2024 End: 03-14-2025 take 1 tablet by mouth twice daily Ciprofloxacin Hcl (Cipro) 500 mg tablet Discontinued 500 mg PO TWICE A DAY February 28, 2025 4:37pm March 14, 2025 3:51pm Start: 06-29-2024 End: 08-03-2024 take 1 tablet by mouth twice daily Ciprofloxacin Hcl (Cipro) 500 mg tablet Discontinued 500 mg PO TWICE A DAY June 29, 2024 12:00am August 03, 2024 3:31pm Start: 10-05-2023 End: 01-27-2024 take 1 tablet by mouth twice daily Ciprofloxacin Hcl (Cipro) 500 mg tablet Discontinued 500 mg PO TWICE A DAY October 05, 2023 5:36pm January 27, 2024 3:26pm Start: 09-16-2022 End: 10-08-2022 take 1 tablet by mouth twice daily Ciprofloxacin Hcl (Cipro) 500 mg tablet Discontinued 500 mg PO TWICE A DAY September 16, 2022 1:00am October 08, 2022 4:37pm Start: 06-11-2022 End: 07-25-2022 take 1 tablet by mouth twice daily Ciprofloxacin Hcl (Cipro) 500 mg tablet Discontinued 500 mg PO TWICE A DAY June 11, 2022 12:00am July 25, 2022 3:42pm Start: 02-17-2022 End: 03-07-2022 take 1 tablet by mouth twice daily Ciprofloxacin Hcl (Cipro) 500 mg tablet Discontinued 500 mg PO TWICE A DAY February 17, 2022 4:34pm March 07, 2022 6:54pm Start: 12-06-2021 End: 01-21-2022 take 1 tablet by mouth twice daily Ciprofloxacin Hcl 500 mg tablet Discontinued 500 mg PO TWICE A DAY December 06, 2021 1:00am January 21, 2022 4:57pm Start: 08-05-2021 End: 10-31-2021 take 1 tablet by mouth twice daily Ciprofloxacin Hcl (Cipro) 500 mg tablet Discontinued 500 mg PO TWICE A DAY August 05, 2021 12:00am October 31, 2021 5:11pm Start: 03-21-2021 End: 04-08-2021 take 1 tablet by mouth twice daily Ciprofloxacin Hcl (Cipro) 500 mg tablet Discontinued 500 mg PO TWICE A DAY March 21, 2021 12:00am April 08, 2021 5:05pm Start: 10-05-2020 End: 01-11-2021 take 1 tablet by mouth twice daily Ciprofloxacin Hcl (Cipro) 500 mg tablet Discontinued 500 mg PO TWICE A DAY November 23, 2020 1:00am January 11, 2021 5:18pm Start: 02-08-2020 End: 03-19-2020 take 1 tablet by mouth twice daily Ciprofloxacin Hcl (Cipro) 500 mg tablet Discontinued 500 mg PO TWICE A DAY March 05, 2020 8:32pm March 18, 2020 12:00am March 19, 2020 12:02am Start: 07-07-2019 End: 10-06-2019 take 1 tablet by mouth twice daily Ciprofloxacin Hcl (Cipro) 500 mg tablet Discontinued 500 mg PO TWICE A DAY July 07, 2019 12:00am October 06, 2019 4:09pm cyclobenzaprine hydrochloride 5 mg oral tablet (20 sources) Muscle Relaxant Start: 09-08-2023 End: 01-27-2024 take 1 tablet by mouth three times daily as needed for muscle spasms Cyclobenzaprine 5 mg tablet Discontinued 5 mg PO THREE TIMES A DAY as needed for muscle spasm 60 September 08, 2023 1:00am January 27, 2024 3:26pm Start: 06-21-2019 End: 10-06-2019 take 1 tablet by mouth three times daily as needed for muscle spasms Cyclobenzaprine 5 mg tablet Discontinued 5 mg PO THREE TIMES A DAY as needed for muscle spasm June 21, 2019 12:00am October 06, 2019 4:09pm dicyclomine hydrochloride 20 mg oral tablet (20 sources) Anticholinergic Start: 12-04-2022 End: 03-14-2025 Dicyclomine 20 mg tablet Discontinued 20 mg PO 1 to 2 times per day January 27, 2024 3:28pm March 14, 2025 3:52pm Start: 02-25-2022 take 1 tablet by julieth th in the morning dicyclomine (Bentyl) 10 MG capsule Take 1 tablet by mouth in the morning and 1 tablet in the evening. 02/25/2022 Active Start: 01-21-2022 End: 12-04-2022 take 1 tablet by mouth three times daily Dicyclomine 20 mg tablet Discontinued 20 mg PO THREE TIMES A DAY July 22, 2022 1:33pm December 04, 2022 6:21pm Comment on above: Take 1 tablet by julieth th twice daily. doxycycline hyclate 100 mg oral capsule (4 sources) Tetracycline-class Drug Start: 02-22-20 End: 06-29-20 take 1 capsule by mouth twice daily Doxycycline Hyclate 100 mg capsule Discontinued 100 mg PO TWICE A DAY February 22, 2024 12:00am June 29, 2024 4:55pm DULoxetine 60 mg delayed release oral capsule (20 sources) Serotonin and Norepinephrine Reuptake Inhibitor Start: 05-28-20 End: 06-10-20 take 1 capsule by mouth once daily Duloxetine 60 mg capsule,delayed release(DR/EC) Discontinued 60 mg PO DAILY May 28, 2021 12:00am October 31, 2021 5:12pm Start: 05-27-2021 End: 05-28-2021 take 1 capsule by mouth once daily Duloxetine 40 mg capsule,delayed release(DR/EC) Discontinued 40 mg PO DAILY May 27, 2021 12:00am May 28, 2021 10:18am Start: 07-09-2020 End: 04-08-2021 take 1 capsule by mouth once daily Duloxetine 20 mg capsule,delayed release(DR/EC) Discontinued 20 mg PO DAILY July 09, 2020 12:00am April 08, 2021 5:11pm erythromycin 0.005 mg/mg ophthalmic ointment (20 sources) Macrolide, Macrolide Antimicrobial Start: 06-13-2021 End: 11-13-2022 Erythromycin 5 mg/gram (0.5 %) ointment Discontinued 0.5 [in_us] OPHTHALMIC THREE TIMES A DAY 3.5 June 13, 2021 12:00am November 13, 2022 6:36pm to the R eye for 3-5 days Start: 06-13-2021 End: 11-13-2022 Erythromycin Discontinued 0. 5 INCH OPHTHALMIC THREE TIMES A DAY 3.5 June 13, 2021 12:00am November 13, 2022 6:36pm to the R eye for 3-5 days Start: 08-17-2020 End: 09-28-2020 Erythromycin 5 mg/gram (0.5 %) ointment Discontinued 0.5 [in_us] OPHTHALMIC THREE TIMES A DAY 3.August 17, 2020 12:00am September 28, 2020 7:44pm Start: 08-17-2020 End: 09-28-2020 Erythromycin Discontinued 0. 5 INCH OPHTHALMIC THREE TIMES A DAY 3.5 August 17, 2020 12:00am September 28, 2020 7:44pm estrogens, conjugated (halfway) 0.625 mg/ml vaginal cream (15 sources) Estrogen Start: 12-17-2018 End: 05-17-2020 Conjugated Estrogens (Premarin) 0.625 mg/gram cream Discontinued TOPICAL December 17, 2018 1:00am May 17, 2020 8:09pm flu vac qs 2017(4 yr up)CD(PF) (1 source) Start: 08-19-2021 End: 08-19-2021 inject 1 mL by intramuscular injection once flu vac qs 2017(4 yr up)CD(PF) Discontinued 0.5 ML IM ONCE 60 August 19, 2021 5:41pm August 19, 2021 8:27pm Flucelvax Quad (PF) (flu vac qs 2017(4 yr up)CD(PF)) 60 mcg (15 mcg x (1 source) Start: 07-22-2018 End: 07-22-2018 inject 15 ug by intramuscular injection once Flucelvax Quad (PF) (flu vac qs 2017(4 yr up)CD(PF)) 60 mcg (15 mcg x Discontinued 0.5 ML IM ONCE 0.5 July 22, 2018 4:36pm July 22, 2018 5:01pm fluconazole 150 mg oral tablet (20 sources) Azole Antifungal Start: 09-16-2022 End: 11-13-2022 Fluconazole 150 mg tablet Discontinued 150 mg PO Every 3 Days 2 September 16, 2022 1:00am November 13, 2022 6:36pm Start: 05-25-2018 End: 10-06-2019 take 1 tablet by mouth once daily Fluconazole 100 mg tablet Discontinued 100 mg PO daily May 25, 2018 12:00am October 06, 2019 4:09pm gadobenate dimeglumine (MULTIHANCE) injection 15 mL (1 source) Start: 08-08-2019 End: 08-08-2019 gadobenate dimeglumine (MULTIHANCE) injection 15 mL hydroxychloroquine sulfate 200 mg oral tablet (15 sources) Antimalarial, Antirheumatic Agent Start: 05-27-2021 End: 10-31-2021 take 2 tablets by mouth once daily Hydroxychloroquine 200 mg tablet Discontinued 200 mg PO TWICE A DAY May 27, 2021 12:00am October 31, 2021 5:14pm TAke once a day for 5-7 days then 2 x a day ketorolac tromethamine 5 mg/ml ophthalmic solution (20 sources) Nonsteroidal Anti-inflammatory Drug, Cyclooxygenase Inhibitor Start: 12-26-2024 End: 12-26-2024 1 drop, Left Eye, See admin instructions, Starting on Thu12/26/24 at 0816, Preprocedure, Into the operative eye(s) every 5 minutes for 3 doses starting 30 minutes prior to surgery. Start: 12-23-2024 End: 02-10-2025 take 1 drop(s) into the eye(s) four times daily ketorolac (Acular) 0.5 % ophthalmic solution INSTILL 1 DROP INTO AFFECTED EYE 4 TIMES DAILY. BRING TO SURGERY CENTER FOR USE AFTER CATARACT SURGERY 12/23/2024 02/10/2025 Discontinued Start: 11-21-2024 End: 11-21-2024 1 drop, Right Eye, See admin instructions, Starting on Thu11/21/24 at 0712, Preprocedure, Into the operative eye(s) every 5 minutes for 3 doses starting 30 minutes prior to surgery. Start: 07-19-2019 End: 07-19-2019 inject 60 mg by intramuscular injection once ketorolac 60 mg/2 mL intramuscular solution Discontinued 60 MG SC ONCE 2 July 19, 2019 8:30pm July 19, 2019 9:05pm Start: 06-21-2019 End: 06-21-2019 inject 60 mg by intramuscular injection once ketorolac 60 mg/2 mL intramuscular solution Discontinued 60 MG SC ONCE June 21, 2019 5:00pm June 21, 2019 9:33pm levoFLOXacin 500 mg oral tablet (15 sources) Quinolone Antimicrobial Start: 11-12-2019 End: 01-18-2020 take 1 tablet by mouth once daily Levofloxacin 500 mg tablet Discontinued 500 mg PO DAILY November 12, 2019 1:00am January 18, 2020 3:08pm lidocaine 0.05 mg/mg medicated patch (15 sources) Antiarrhythmic, Amide Local Anesthetic Start: 03-11-2021 End: 12-06-2021 Lidocaine (Lidoderm) 5 % adhesive patch,medicated Discontinued 1 NMA TOPICAL DAILY March 11, 2021 12:00am December 06, 2021 5:48pm leave on most painful area for up to 12 hrs LORazepam 0.5 mg oral tablet (20 sources) Benzodiazepine Start: 05-25-2018 End: 11-12-2019 Lorazepam 0.5 mg tablet Discontinued 0.5 mg PO 1 to 2 times per day as needed April 05, 2019 12:00am June 21, 2019 5:19pm Start: 05-20-2017 take 1 tablet by julieth th every twelve hours as needed LORAZEPAM 0.5 MG TABS One tablet by mouth every 12 hours as needed LORAZEPAM [id number] Brady Stephens MD meloxicam 15 mg oral tablet (20 sources) Nonsteroidal Anti-inflammatory Drug Start: 05-25-2018 End: 11-26-2020 take 1 tablet by mouth once daily Meloxicam 15 mg tablet Discontinued 15 mg PO daily May 17, 2020 8:13pm November 26, 2020 12:58pm Start: 05-20-2017 take 1 tablet by julieth th once daily MELOXICAM 7.5 MG TABS One tablet by mouth daily MELOXICAM [id number] Brady Stephens MD methocarbamol 500 mg oral tablet (15 sources) Muscle Relaxant Start: 06-05-2020 End: 01-11-2021 take 1 tablet by mouth three times daily Methocarbamol 500 mg tablet Discontinued 500 mg PO THREE TIMES A DAY 30 June 05, 2020 12:00am January 11, 2021 9:37pm metroNIDAZOLE 250 mg oral tablet (20 sources) Nitroimidazole Antimicrobial Start: 06-29-2024 End: 07-09-2024 take 1 tablet by mouth three times daily Metronidazole 250 mg tablet Discontinued 250 mg PO THREE TIMES A DAY 30 June 29, 2024 12:00am July 08, 2024 12:00am July 09, 2024 12:10am Start: 04-16-2023 End: 06-10-2023 take 1 tablet by mouth three times daily Metronidazole 250 mg tablet Discontinued 250 mg PO THREE TIMES A DAY 30 April 16, 2023 12:00am April 25, 2023 12:00am April 26, 2023 12:04am Start: 12-06-2021 End: 12-16-2021 take 1 tablet by mouth three times daily Metronidazole 250 mg tablet Discontinued 250 mg PO THREE TIMES A DAY 30 December 06, 2021 1:00am December 15, 2021 1:00am December 16, 2021 1:03am Start: 11-23-2020 End: 12-03-2020 take 1 tablet by mouth three times daily Metronidazole 250 mg tablet Discontinued 250 mg PO THREE TIMES A DAY 30 November 23, 2020 1:00am December 02, 2020 1:00am December 03, 2020 1:03am Start: 10-05-2020 End: 10-15-2020 take 1 tablet by mouth three times daily Metronidazole 250 mg tablet Discontinued 250 mg PO THREE TIMES A DAY 30 October 05, 2020 1:00am October 14, 2020 1:00am October 15, 2020 1:02am Start: 03-05-2020 End: 03-19-2020 take 1 capsule by mouth three times daily Metronidazole (Flagyl) 375 mg capsule Discontinued 375 mg PO THREE TIMES A DAY 42 March 05, 2020 12:00am March 18, 2020 12:00am March 19, 2020 12:02am Comment on above: take 1 tablet by julieth three times a day for 10 days 2 ml midazolam 1 mg/ml injection (1 source) Benzodiazepine Start: 11-21-2024 End: 11-21-2024 IntraVENous, As needed, Starting on Thu11/21/24 at 0754, Anesthesia Intraprocedure moxifloxacin 5 mg/ml ophthalmic solution (20 sources) Quinolone Antimicrobial Start: 12-26-2024 End: 12-26-2024 1 drop, Left Eye, See admin instructions, Starting on Thu12/26/24 at 0816, Preprocedure, Instill one drop in operative eye every 10 minutes starting 30 min prior to procedure. Start: 12-23-2024 End: 02-10-2025 take 1 drop(s) into the eye(s) four times daily moxifloxacin (Vigamox) 0.5 % ophthalmic solution INSTILL 1 DROP INTO AFFECTED EYE FOUR TIMES A DAY. BRING TO SURGERY CENTER FOR USE AFTER CATARACT SURGERY. 12/23/2024 02/10/2025 Discontinued Start: 11-21-2024 End: 11-21-2024 1 drop, Right Eye, See admin instructions, Starting on Thu11/21/24 at 0712, Preprocedure, Instill one drop in operative eye every 10 minutes starting 30 min prior to procedure. MULTIVITAMIN ORAL (2 sources) MULTIVITAMIN ORA L Take by mouth. 0 Active Comment on above: Take by mouth. omeprazole 20 mg delayed release oral capsule (20 sources) Proton Pump Inhibitor Start: End: 4 take 1 capsule by mouth once daily Omeprazole 20 mg capsule,delayed release(DR/EC) Discontinued 20 mg PO DAILY January 27, 2024 3:28pm September 29, 2024 6:08pm Start: 05-17-2020 End: 09-28-2020 take 1 capsule by mouth once daily Omeprazole 20 mg capsule,delayed release(DR/EC) Discontinued 20 mg PO daily May 17, 2020 8:11pm September 28, 2020 7:44pm Start: 11-12-2019 End: 01-18-2020 take 1 capsule by mouth once daily Omeprazole 20 mg capsule,delayed release(DR/EC) Discontinued 20 mg PO DAILY November 12, 2019 1:00am January 18, 2020 3:09pm Start: 05-20-2017 End: 06-21-2019 take 1 capsule by mouth once daily Omeprazole 20 mg capsule,delayed release(DR/EC) Discontinued 20 mg PO daily January 04, 2019 6:13pm June 21, 2019 5:19pm phenazopyridine hydrochloride 200 mg oral tablet (7 sources) Start: 05-13-2017 End: 05-20-2017 take 1 tablet by mouth three times daily as needed PYRIDIUM 200 MG TABS One tablet by mouth three times daily as needed PHENAZOPYRIDINE HCL [id number] Myrna Aranda RN phenylephrine hydrochloride 25 mg/ml ophthalmic solution (4 sources) alpha-1 Adrenergic Agonist Start: 12-26-2024 End: 12-26-2024 1 drop, Left Eye, See admin instructions, Starting on Thu12/26/24 at 0816, Preprocedure, To operative eye for 3 doses, every 10 minutes, starting 30 minutes prior to surgery Start: 11-21-2024 End: 11-21-2024 1 drop, Right Eye, See admin instructions, Starting on Thu11/21/24 at 0712, Preprocedure, To operative eye for 3 doses, every 10 minutes, starting 30 minutes prior to surgery prednisoLONE acetate 10 mg/ml ophthalmic suspension (16 sources) Corticosteroid Start: 12-23-2024 End: 02-10-2025 take 1 drop(s) into the eye(s) four times daily prednisoLONE acetate (Pred-Forte) 1 % ophthalmic suspension INSTILL 1 DROP INTO AFFECTED EYE FOUR TIMES A DAY. BRING TO SURGERY CENTER FOR USE AFTER CATARACT SURGERY. TAPER DIRECTED. 12/23/2024 02/10/2025 Discontinued proparacaine hydrochloride 5 mg/ml ophthalmic solution (4 sources) Local Anesthetic Start: 12-26-2024 End: 12-26-2024 1 drop, Left Eye, See admin instructions, Starting on Thu12/26/24 at 0816, Preprocedure, Into the operative eye prior to administering other drops. Start: 11-21-2024 End: 11-21-2024 1 drop, Right Eye, See admin instructions, Starting on Thu11/21/24 at 0712, Preprocedure, Into the operative eye, BEFORE all other drops. technetium Tc-99m sestamibi (Cardiolite) radio-isotope injection .4 millicurie (1 source) Start: 08-11-2023 End: 08-11-2023 technetium Tc-99m sestamibi (Cardiolite) radio-isotope injection 21.4 millicurie technetium Tc-99m sestamibi (Cardiolite) radio-isotope injection 6.4 millicurie (1 source) Start: 08-11-2023 End: 08-11-2023 technetium Tc-99m sestamibi (Cardiolite) radio-isotope injection 6.4 millicurie tetracycline hydrochloride 500 mg oral capsule (4 sources) Tetracycline-class Antimicrobial Start: 12-13-2024 End: 03-14-2025 take 1 capsule by mouth every twelve hours Tetracycline 500 mg capsule Discontinued 500 mg PO Q12H December 13, 2024 1:00am March 14, 2025 3:55pm trimethoprim 100 mg oral tablet (15 sources) Dihydrofolate Reductase Inhibitor Antibacterial Start: 05-25-2018 End: 05-25-2018 take 1 tablet by mouth at bedtime Trimethoprim 100 mg tablet Discontinued 100 mg PO AT BEDTIME May 25, 2018 12:00am May 25, 2018 3:53pm tropicamide 10 mg/ml ophthalmic solution (4 sources) Anticholinergic Start: 12-26-2024 End: 12-26-2024 1 drop, Left Eye, See admin instructions, Starting on Thu12/26/24 at 0816, Preprocedure, To operative eye for 3 doses, every 10 minutes, starting 30 minutes prior to surgery Start: 11-21-2024 End: 11-21-2024 1 drop, Right Eye, See admin instructions, Starting on Thu11/21/24 at 0712, Preprocedure, To operative eye for 3 doses, every 10 minutes, starting 30 minutes prior to surgery vitamin b12 1 mg/ml injectable solution (2 sources) Vitamin B12 Start: 04-04-2020 End: 04-04-2020 inject 1000 ug by intramuscular injection once cyanocobalamin (vitamin B-12) 1,000 mcg/mL injection solution Discontinued 1000 MCG IM ONCE 1 April 04, 2020 4:10pm April 04, 2020 4:49pm End: 06-10-2023 take 1 tablet under the tongue once daily Cyanocobalamin (VITAMIN B-12) 2,500 mcg subl 1 tablet Sublingual Once a day 0 06/10/2023 Discontinued Comment on above: 1 tablet Sublingual Once a day Problems Active Problems Problem Classification Problem Date Documented Da te Episodic/Chronic Administrative/social admission (1 source) Patient encounter status; Translations: [Persons encountering health services in other specified circumstances] 07-31-2023 Episodic Cataract (20 sources) Age-related nuclear cataract of right eye; Translations: [Age-related nuclear cataract, right eye] Onset: 5 Resolved: 5 11-17-2024 Chronic Chronic kidney disease (20 sources) Chronic kidney disease stage 3; Translations: [Chronic renal insufficiency, stage III (moderate)] 05-18-2020 Chronic Chronic kidney disease (1 source) Chronic kidney disease; Translations: [Chronic kidney disease, stage 3b] Onset: Chronic obstructive pulmonary disease and bronchiectasis (15 sources) Bronchitis; Translations: [Bronchitis, not specified as acute or chronic] 11-12-2019 Episodic Conditions associated with dizziness or vertigo (17 sources) Dizziness; Translations: [Dizziness and giddiness] 05-17-2020 Episodic Disorders of lipid metabolism (20 sources) Hyperlipidemia; Translations: [Hyperlipidemia, unspecified] Onset: 8 05-13-2017 Chronic Diverticulosis and diverticulitis (15 sources) Diverticulitis; Translations: [Diverticulitis of intestine, part unspecified, without perforation or abscess without bleeding] 03-05-2020 Chronic Esophageal disorders (15 sources) Gastroesophageal reflux disease; Translations: [Gastro-esophageal reflux disease without esophagitis] 05-17-2020 Chronic Essential hypertension (20 sources) Hypertensive disorder; Translations: [Essential (primary) hypertension] Onset: 7 05-13-2017 Chronic Genitourinary symptoms and ill-defined conditions (15 sources) Dysuria; Translations: [Dysuria] 08-06-2021 Episodic Headache; including migraine (11 sources) Headache disorder; Translations: [Headache disorder] 09-24-2022 Episodic Immunizations and screening for infectious disease (15 sources) Needs influenza immunization; Translations: [Encounter for immunization] 08-19-2021 Episodic Inflammation; infection of eye (except that caused by tuberculosis or sexually transmitteddisease) (15 sources) Eye infection; 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, right eye] 06-13-2021 Chronic Lymphadenitis (7 sources) Posterior auricular lymphadenopathy; Translations: [Localized enlarged lymph nodes] 06-12-2023 Episodic Malaise and fatigue (20 sources) Malaise and fatigue; Translations: [Fatigue] Onset: 7 05-13-2017 Episodic Menopausal disorders (4 sources) Vaginal dryness; Translations: [Menopausal and female climacteric states] 08-04-2024 Chronic Mycoses (15 sources) Candidiasis of mouth and esophagus; Translations: [Candidal esophagitis] 05-25-2018 Episodic Nonspecific chest pain (7 sources) Chest pain; Translations: [Chest pain, unspecified] Onset: 7 05-20-2017 Episodic Nutritional deficiencies (20 sources) Vitamin D deficiency; Translations: [Vitamin D deficiency, unspecified] 05-17-2020 Chronic Osteoarthritis (15 sources) Osteoarthritis; Translations: [Unspecified osteoarthritis, unspecified site] 04-04-2020 Chronic Other connective tissue disease (15 sources) Foot pain; Translations: [Pain in right foot] 08-17-2020 Episodic Other connective tissue disease (13 sources) Biceps tendinitis; Translations: [Bicipital tendinitis, right shoulder] 06-11-2022 Episodic Other connective tissue disease (5 sources) Tendinitis of shoulder region; Translations: [Other enthesopathies, not elsewhere classified] 09-16-2022 Episodic Other connective tissue disease (3 sources) Enthesopathy; Translations: [Other enthesopathies, not elsewhere classified] Episodic Other connective tissue disease (7 sources) Tendonitis of left shoulder; Translations: [Other enthesopathies, not elsewhere classified] 09-16-2022 Episodic Other connective tissue disease (4 sources) Heel pain; Translations: [Pain in left foot] 09-14-2024 Episodic Other connective tissue disease (4 sources) Plantar fasciitis; Translations: [Plantar fascial fibromatosis] 09-14-2024 Episodic Other connective tissue disease (4 sources) Tendinitis of left elbow; Translations: [Other enthesopathies, not elsewhere classified] 02-22-2024 Episodic Other eye disorders (3 sources) Inflammatory disorder of the eye; Translations: [Other specified disorders of eye and adnexa] Episodic Other eye disorders (15 sources) Bilateral epiphora of eyes; Translations: [Unspecified epiphora, bilateral] 08-17-2020 Episodic Other eye disorders (7 sources) Disorder of right eye; Translations: [Other specified disorders of eye and adnexa] 06-13-2021 Episodic Other eye disorders (5 sources) Other specified disorders of eye and adnexa; Translations: [Irritation of right eye] 06-13-2021 Episodic Other gastrointestinal disorders (15 sources) Diarrhea; Translations: [Diarrhea, unspecified] 12-06-2021 Episodic Other gastrointestinal disorders (15 sources) Constipation; Translations: [Constipation, unspecified] 01-21-2022 Episodic Other liver diseases (4 sources) Enzyme level - finding; Translations: [Abnormal levels of other serum enzymes] 05-20-2023 Episodic Other lower respiratory disease (17 sources) Dyspnea; Translations: [Shortness of breath] 02-08-2020 Episodic Other lower respiratory disease (12 sources) Cough; Translations: [Cough] 07-25-2022 Episodic Other nervous system disorders (2 sources) Other chronic pain; Translations: [Other chronic pain] Onset: Chronic Other nervous system disorders (15 sources) Numbness of lower limb ; Translations: [Anesthesia of skin] 06-21-2019 Episodic Other non-traumatic joint disorders (20 sources) Joint pain; Translations: [Pain in unspecified joint] 12-17-2018 Episodic Other non-traumatic joint disorders (15 sources) Multiple joint pain; Translations: [Pain in unspecified joint] 12-27-2018 Episodic Other non-traumatic joint disorders (15 sources) Elbow joint pain; Translations: [Pain in right elbow] 05-27-2021 Episodic Other non-traumatic joint disorders (9 sources) Pain in left shoulder; Translations: [Left shoulder pain] 11-13-2022 Episodic Other skin disorders (15 sources) Sebaceous cyst of skin; Translations: [Sebaceous cyst] 10-31-2021 Episodic Other upper respiratory infections (10 sources) Maxillary sinusitis; Translations: [Chronic maxillary sinusitis] 02-25-2023 Chronic Other upper respiratory infections (15 sources) Acute maxillary sinusitis; Translations: [Acute maxillary sinusitis, unspecified] 11-12-2019 Episodic Otitis media and related conditions (15 sources) Otitis media; Translations: [Otitis media, unspecified, left ear] 01-11-2021 Episodic Residual codes; unclassified (1 source) Menopause present; Translations: [Asymptomatic menopausal state] 06-10-2023 Episodic Rheumatoid arthritis and related disease (1 source) Arthropathy of lumbar facet joint 02-10-2025 Chronic Spondylosis; intervertebral disc disorders; other back problems (20 sources) Inflammation of sacroiliac joint; Translations: [Sacroiliitis, not elsewhere classified] Onset: 1 02-25-2021 Chronic Unclassified (1 source) Low back pain, unspecified; Translations: [Low back pain, unspecified] Onset: 5 Urinary tract infections (20 sources) Cystitis; Translations: [Cystitis, unspecified without hematuria] Onset: 5 12-17-2018 Episodic Past or Other Problems Problem Classification Problem Date Documented Da te Episodic/Chronic Abdominal pain (20 sources) Epigastric pain; Translations: [Epigastric pain] Onset: 7 05-13-2017 Episodic Biliary tract disease (11 sources) Chronic cholecystitis; Translations: [Chronic cholecystitis] Onset: 8 Resolved: 8 12-01-2017 Episodic Fracture of upper limb (20 sources) Closed fracture of base of fourth metacarpal; Translations: [Fracture of base of fifth metacarpal] Onset: 9 02-21-2019 Episodic Gastrointestinal hemorrhage (20 sources) Gastrointestinal hemorrhage; Translations: [Hemorrhage of anus and rectum] Onset: 1 01-16-2021 Episodic Nausea and vomiting (20 sources) Nausea with vomiting, unspecified; Translations: [Nausea and vomiting] Onset: 8 02-14-2018 Episodic Other connective tissue disease (1 source) Cramp and spasm; Translations: [Cramp and spasm] Onset: 7 Episodic Other non-traumatic joint disorders (8 sources) Shoulder pain; Translations: [Pain in left shoulder] Onset: 7 05-13-2017 Episodic Other non-traumatic joint disorders (2 sources) Hip pain; Translations: [Pain in unspecified hip] Onset: 7 07-27-2018 Episodic Other screening for suspected conditions (not mental disorders or infectious disease) (11 sources) Liver function tests abnormal; Translations: [Other specified abnormal findings of blood chemistry] Onset: 4 05-20-2023 Episodic Spondylosis; intervertebral disc disorders; other back problems (20 sources) Fusion of spine, site unspecified; Translations: [Lumbar radiculopathy] Onset: 8 09-10-2020 Episodic Unclassified (13 sources) fell off ladder 05-19-2022 Comment on above: 2013 did not gett be tter with PT Unclassified (1 source) Low back pain, unspecified; Translations: [Low back pain, unspecified] Onset: 5 Results Test Name Value Interpretation Reference Range Facility Office Visiton 04-14-2025 Follow-up visit [id number] Milena Mcghee 1945 F Date Provider Department Center 04/14/2025 [id number] None Family History Adopted: Yes Level of Service:66295 [place] OFFICE/OUTPATIENT ESTABLISHED MOD [facility] 30 MIN Reason for Visit and Comments: Back Pain [12] - She says she did go to PT about 6 times. She says it helped with the R side, but not the L side. She's says she still is doing her exercises. Normal [facility] Progress Noteon 04-14-2025 Progress Note [facility] [id number] [facility] [address] [facility] [id number] Dept: [phone] Dept Chief Complaint Patient presents with Back Pain She says she did go to PT about 6 times. She says it helped with the R side, but not the L side. She's says she still is doing her exercises. SUBJECTIVE HPI: Milena Mcghee is a 79 y.o. year old here today for follow-up of chronic low back pain. Since last visit, her right side low back pain is essentially gone after recent PT, but she is still having significant left lower back pain. LOCATION OF PAIN: Left low back RADIATES: denies into the legs CONSTANT/INTERMITTENT: Constant NUMBNESS/TINGLING? denies WEAKNESS? denies URINARY/FECAL INCONTINENCE? No SADDLE ANESTHESIA? no INTERFERING WITH SLEEP? No CURRENT PAIN MEDS: Tylenol 1000 mg PRN (usually once or twice a day), Gabapentin 600 mg daily, baclofen 5 mg BID PRN ANY SIGNIFICANT SIDE EFFECTS FROM CURRENT PAIN MEDS? no ARE THEY PROVIDING ADEQUATE ANALGESIA? mild ARE THEY PROVIDING ADEQUATE FUNCTIONAL IMPROVEMENT? mild PAIN MEDS PREVIOUSLY TRIED/FAILED: Meloxicam (had helped but had to stop due to kidney function concerns), duloxetine (side effects), lidocaine patches OTHER CURRENT / PREVIOUS TREATMENT Physical therapy -- Last did shortly after her most recent back surgery in 2017 TENS -- No Chiropractor -- No Acupuncture -- No Prior Pain Clinic -- Dr Morrison in [place] Chronic opiates -- No Previous Pain Procedures -- some previous lumbar injections prior to her back surgeries 09/10/20 -- LEFT L4 and L5 TFESI -- >50% improvement in leg symptoms, only 2 days of relief of axial back pain 02/25/21 -- LEFT SI joint -- 30% improvement in pain, >50% improvement in function / ambulation 01/20/25 -- bilateral L4 and L5 MBB -- 100% relief for a few hours 02/03/25 -- bilateral L4 and L5 MBB -- 20% relief for a few hours Patient Active Problem List Diagnosis Date Noted Sacroiliitis (HCC) 02/25/2021 Epigastric pain 01/16/2021 BRBPR (bright red blood per rectum) 01/16/2021 Lumbar radiculopathy 09/10/2020 Closed nondisplaced fracture of base of fourth metacarpal bone of left hand 02/21/2019 Displaced fracture of base of fifth metacarpal bone of left hand 02/21/2019 Nausea & vomiting 02/14/2018 Nausea and vomiting 02/14/2018 Allergies Allergen Reactions Codeine Nausea And Vomiting and Unknown Other reaction(s): GI Upset, spinning adn vomiting Nitrofurantoin Hives and Other Prednisone Other reaction(s): nevous unable to sleep, Other, Unknown Seasonal Rash and Nausea And Vomiting Sulfa Antibiotics Rash, Swelling and Other Other reaction(s): swelling of the throat Other reaction(s): swelling of the throat Oxycodone Nausea And Vomiting Promethazine Other Other reaction(s): makes me act drunk Sulfasalazine Rash Family History Adopted: Yes Past Medical History: Diagnosis Date Age-related nuclear cataract of right eye 11/17/2024 Age-related nuclear cataract, left 12/22/2024 Cholecystitis, chronic Chronic back pain Chronic kidney disease STAGE 3 Closed nondisplaced fracture of base of fourth metacarpal bone of left hand 02/21/2019 Displaced fracture of base of fifth metacarpal bone of left hand 02/21/2019 Displaced fracture of base of fourth metacarpal bone of left hand 02/21/2019 GERD (gastroesophageal reflux disease) Hyperlipidemia Hypertension Osteoarthritis PONV (postoperative nausea and vomiting) Social History Socioeconomic History Marital status: Spouse name: Not on file Number of children: Not on file Years of education: Not on file Highest education level: Not on file Occupational History Not on file Tobacco Use Smoking status: Never Passive exposure: Never Smokeless tobacco: Never Vaping Use Vaping status: Never Used Substance and Sexual Activity Alcohol use: No Drug use: No Sexual activity: Not on file Other Topics Concern Not on file Social History Narrative Not on file Social Drivers of Health Financial Resource Strain: Not on file Food Insecurity: Not on file Transportation Needs: No Transportation Needs (11/14/2024) PRAPARE - Transportation Lack of Transportation (Medical): No Lack of Transportation (Non-Medical): No Physical Activity: Not on file Stress: Not on file Social Connections: Not on file Intimate Partner Violence: Not on file Housing Stability: Not on file Past Surgical History: Procedure Laterality Date BACK SURGERY 2013 and 2017 L3-4 fusion CHOLECYSTECTOMY COLONOSCOPY Current Outpatient Medications Medication Sig Dispense Refill acetaminophen (Tylenol) 500 MG tablet every 8 hours as needed. amLODIPine (Norvasc) 5 MG tablet Take 1 tablet by mouth every morning (before breakfast). atorvastatin (Lipitor) 10 MG tablet Take 1 tablet by mouth every morning (before breakfast). baclofen (Lioresal) 5 MG tablet Take 1 (more content not included)... Normal [facility] Absolute lymphocyte countOrd ered By: Katarina Stevens on 04-05-2025 Lymphocytes Auto (Unsp spec) [#/Vol] 2.17 10*3/uL 0.83-4.51 [facility] Absolute neutrophil countOrd ered By: Katarina Stevens on 04-05-2025 Neutrophils (Bld) [#/Vol] 4.9 10*3/uL 2.0-7.7 [facility] Anion gap in Serum or Plasma Ordered By: Katarina Stevens on 04-05-2025 Anion gap [Moles/Vol] 12 mmol/L 5-15 [facility] Automated lymphocyte count a s percentage of total leukocytesOrdered By: Katarina Joyason on 04-05-2025 Lymphocytes/100 WBC Auto (Unsp spec) 26.5 % 19- [facility] BUN/creatinine ratioOrdered By: Katarina Stevens on 04-05-2025 Urea nitrogen/Creatinine [Mass ratio] 15.6 mg/mg 10-20 [facility] Basophil percentageOrdered B y: Katarinatim JoyaStevens on 04-05-2025 Basophils/100 WBC (Bld) 0.9 % 0-1 [facility] Bilirubin Test strip Ql (U)O rdered By: Katarina Stevens on 04-05-2025 Bilirubin Ql (U) Negative Negative [facility] Bilirubin, totalOrdered By: Katarina Stevens on 04-05-2025 Bilirubin [Mass/Vol] 0.66 mg/dL 0.00-1.[address] [facility] CBC W/Diff, Automatedon 03-19 Absolute Lymph 2.17 X10 3/uL Normal 0.83-4.51 [facility] Comment on above: Performed By: #### L 500.4050, L501.0900, L506.1001, L100.0100, L400.0001, L509.1000 #### [facility] [address] [place], [address] Absolute Neut 4.9 X10 3/uL Normal 2.0-7.7 [facility] Comment on above: Performed By: #### L 500.4050, L501.0900, L506.1001, L100.0100, L400.0001, L509.1000 #### [facility] [address] [place], [address] Basophils/100 WBC (Bld) 0.9 % Normal 0-1 [facility] Comment on above: Performed By: #### L 500.4050, L501.0900, L506.1001, L100.0100, L400.0001, L509.1000 #### [facility] [address] [place], [address] Eosinophils/100 WBC (Bld) 3.7 % Normal 0-5 [facility] Comment on above: Performed By: #### L 500.4050, L501.0900, L506.1001, L100.0100, L400.0001, L509.1000 #### [facility] [address] [place], [address] Erythrocyte distribution width (RBC) [Ratio] 12.2 % Normal 11.6-14.6 [facility] Comment on above: Performed By: #### L 500.4050, L501.0900, L506.1001, L100.0100, L400.0001, L509.1000 #### [facility] [address] [place], [address] Hematocrit (Bld) [Volume fraction] 40.4 % Normal 37-47 [facility] Comment on above: Performed By: #### L 500.4050, L501.0900, L506.1001, L100.0100, L400.0001, L509.1000 #### [facility] [address] [place], [address] Hemoglobin (Bld) [Mass/Vol] 13.5 g/dL Normal 12.0-15.0 [facility] Comment on above: Performed By: #### L 500.4050, L501.0900, L506.1001, L100.0100, L400.0001, L509.1000 #### [facility] [address] [place], [address] IG% 0.400 Normal 0.0-0.9 [facility] Comment on above: Result Comment: IG% - Immature Granulocytes (promyelocytes, myelocytes and metamyelocytes) > 1% indicates that a LEFT SHIFT is Present. Performed By: #### L 500.4050, L501.0900, L506.1001, L100.0100, L400.0001, L509.1000 #### [facility] [address] [place], [address] Lymphocytes/100 WBC (Bld) 26.5 % Normal 19-41 [facility] Comment on above: Performed By: #### L 500.4050, L501.0900, L506.1001, L100.0100, L400.0001, L509.1000 #### [facility] [address] [place], [address] MCH (RBC) [Entitic mass] 31.8 pg Normal 27.0-32.0 [facility] Comment on above: Performed By: #### L 500.4050, L501.0900, L506.1001, L100.0100, L400.0001, L509.1000 #### [facility] [address] [place], [address] MCHC (RBC) [Mass/Vol] 33.4 g/dL Normal 32-36 [facility] Comment on above: Performed By: #### L 500.4050, L501.0900, L506.1001, L100.0100, L400.0001, L509.1000 #### [facility] [address] [place], [address] MCV (RBC) [Entitic vol] 95.3 fL Normal 81-99 [facility] Comment on above: Performed By: #### L 500.4050, L501.0900, L506.1001, L100.0100, L400.0001, L509.1000 #### [facility] [address] [place], [address] Monocytes/100 WBC (Bld) 8.7 % Normal 0-10 [facility] Comment on above: Performed By: #### L 500.4050, L501.0900, L506.1001, L100.0100, L400.0001, L509.1000 #### [facility] [address] [place], [address] Neutrophils/100 WBC (Bld) 59.8 % Normal 47-70 [facility] Comment on above: Performed By: #### L 500.4050, L501.0900, L506.1001, L100.0100, L400.0001, L509.1000 #### [facility] [address] [place], [address] Nucleated RBC (Bld) [#/Vol] 0 10*3/uL Normal 0-5 [facility] Comment on above: Performed By: #### L 500.4050, L501.0900, L506.1001, L100.0100, L400.0001, L509.1000 #### [facility] [address] [place], [address] Platelet mean volume (Bld) [Entitic vol] 11.7 fL Normal 6.2-12.0 [facility] Comment on above: Performed By: #### L 500.4050, L501.0900, L506.1001, L100.0100, L400.0001, L509.1000 #### [facility] [address] [place], [address] Platelets (Bld) [#/Vol] 216 10*3/uL Normal 150-450 [facility] Comment on above: Performed By: #### L 500.4050, L501.0900, L506.1001, L100.0100, L400.0001, L509.1000 #### [facility] [address] [place], [address] RBC (Bld) [#/Vol] 4.24 10*6/uL Normal 4.2-5.4 [facility] Comment on above: Performed By: #### L 500.4050, L501.0900, L506.1001, L100.0100, L400.0001, L509.1000 #### [facility] [address] [place], [address] RDW SD 42.3 fl Normal 35.1-43.9 [facility] Comment on above: Performed By: #### L 500.4050, L501.0900, L506.1001, L100.0100, L400.0001, L509.1000 #### [facility] [address] [place], [address] WBC (Bld) [#/Vol] 8.2 10*3/uL Normal 4.4-11.0 [facility] Comment on above: Performed By: #### L 500.4050, L501.0900, L506.1001, L100.0100, L400.0001, L509.1000 #### [facility] [address] [place], [address] Carbon dioxide, total [Moles /volume] in Central venous bloodOrdered By: Katarina Stevens on 04-05-2025 CO2 [Moles/Vol] 23.5 mmol/L 21.0-32.0 [facility] Chloride assayOrdered By: Do ra Stevens on 04-05-2025 Chloride [Moles/Vol] 106 mmol/L 98-[address] [facility] Comprehensive Metabolic Prof ilon 04-05-2025 Albumin [Mass/Vol] 4.4 g/dL Normal 3.4-4.8 [facility] Comment on above: Performed By: #### L 500.4050, L501.0900, L506.1001, L100.0100, L400.0001, L509.1000 #### [facility] [address] [place], [address] Albumin/Globulin [Mass ratio] 1.6 {ratio} Normal 0.9-2.4 [facility] Comment on above: Performed By: #### L 500.4050, L501.0900, L506.1001, L100.0100, L400.0001, L509.1000 #### [facility] [address] [place], [address] ALK PHOS 146 U/L High 35-104 [facility] Comment on above: Performed By: #### L 500.4050, L501.0900, L506.1001, L100.0100, L400.0001, L509.1000 #### [facility] [address] [place], [address] ALT [Catalytic activity/Vol] 17 U/L Normal <=34 [facility] Comment on above: Performed By: #### L 500.4050, L501.0900, L506.1001, L100.0100, L400.0001, L509.1000 #### [facility] [address] [place], [address] AST [Catalytic activity/Vol] 22 U/L Normal <=31 [facility] Comment on above: Performed By: #### L 500.4050, L501.0900, L506.1001, L100.0100, L400.0001, L509.1000 #### [facility] [address] [place], [address] Bilirubin [Mass/Vol] 0.66 mg/dL Normal 0.00-1.[address] [facility] Comment on above: Performed By: #### L 500.4050, L501.0900, L506.1001, L100.0100, L400.0001, L509.1000 #### [facility] [address] [place], [address] BUN/CRE 15.6 RATIO Normal 10-20 [facility] Comment on above: Performed By: #### L 500.4050, L501.0900, L506.1001, L100.0100, L400.0001, L509.1000 #### [facility] [address] [place], [address] Calcium [Mass/Vol] 9.8 mg/dL Normal 7.6-11.0 [facility] Comment on above: Performed By: #### L 500.4050, L501.0900, L506.1001, L100.0100, L400.0001, L509.1000 #### [facility] [address] [place], [address] Chloride [Moles/Vol] 106 mmol/L Normal 98-[address] [facility] Comment on above: Performed By: #### L 500.4050, L501.0900, L506.1001, L100.0100, L400.0001, L509.1000 #### [facility] [address] [place], [address] CO2 [Moles/Vol] 23.5 mmol/L Normal 21.0-32.0 [facility] Comment on above: Performed By: #### L 500.4050, L501.0900, L506.1001, L100.0100, L400.0001, L509.1000 #### [facility] [address] [place], [address] Creatinine [Mass/Vol] 1.35 mg/dL High 0.70-1.20 [facility] Comment on above: Performed By: #### L 500.4050, L501.0900, L506.1001, L100.0100, L400.0001, L509.1000 #### [facility] [address] [place], [address] GAP 12 Normal 5-15 [facility] Comment on above: Performed By: #### L 500.4050, L501.0900, L506.1001, L100.0100, L400.0001, L509.1000 #### [facility] [address] [place], [address] GFR/1.73 sq M.predicted among non-blacks MDRD (S/P/Bld) [Vol rate/Area] 40 mL/min/{1.73_m2} Low >60 [facility] Comment on above: Result Comment: mL/m in/1.73m2 CKD-EPI Creatinine Equation (2020) Performed By: #### L 500.4050, L501.0900, L506.1001, L100.0100, L400.0001, L509.1000 #### [facility] [address] [place], [address] Globulin (S) [Mass/Vol] 2.8 g/dL Normal 2.2-4.2 [facility] Comment on above: Performed By: #### L 500.4050, L501.0900, L506.1001, L100.0100, L400.0001, L509.1000 #### [facility] [address] [place], [address] Glucose [Mass/Vol] 104 mg/dL High 70-99 [facility] Comment on above: Performed By: #### L 500.4050, L501.0900, L506.1001, L100.0100, L400.0001, L509.1000 #### [facility] [address] [place], [address] Potassium [Moles/Vol] 4.5 mmol/L Normal 3.3-5.1 [facility] Comment on above: Performed By: #### L 500.4050, L501.0900, L506.1001, L100.0100, L400.0001, L509.1000 #### [facility] [address] [place], [address] Sodium [Moles/Vol] 141 mmol/L Normal 133-145 [facility] Comment on above: Performed By: #### L 500.4050, L501.0900, L506.1001, L100.0100, L400.0001, L509.1000 #### [facility] [address] [place], [address] T PROT 7.2 g/dL Normal 5.9-8.4 [facility] Comment on above: Performed By: #### L 500.4050, L501.0900, L506.1001, L100.0100, L400.0001, L509.1000 #### [facility] [address] [place], [address] Urea nitrogen [Mass/Vol] 21 mg/dL High 4-19 [facility] Comment on above: Performed By: #### L 500.4050, L501.0900, L506.1001, L100.0100, L400.0001, L509.1000 #### [facility] [address] [place], [address] Eosinophil percentageOrdered By: Katarina Stevens on 04-05-2025 Eosinophils/100 WBC (Bld) 3.7 % 0-5 [facility] Erythrocyte distribution wid th ratioOrdered By: Katarina Stevens on 04-05-2025 Erythrocyte distribution width (RBC) [Ratio] 12.2 % 11.6-14.6 [facility] Erythrocyte distribution wid th standard deviationOrdered By: Katarina Stevens on 04-05-2025 Erythrocyte distribution width (RBC) [Ratio] 42.3 fl 35.1-43.9 [facility] Glomerular filtration rate ( GFR) estimation/1.73 sq m using serum, plasma, or whole bOrdered By: Katarina Stevens on 04-05-2025 GFR/1.73 sq M.predicted among non-blacks MDRD (S/P/Bld) [Vol rate/Area] 40 mL/min/{1.73_m2} Low >60 [facility] Comment on above: mL/min/1.73m2 CKD-EP I Creatinine Equation (2020) Hematocrit Auto (Bld) [Volum e fraction]Ordered By: Katarina Stevens on 04-05-2025 Hematocrit (Bld) [Volume fraction] 40.4 % 37-47 [facility] Hemoglobin measurementOrdere d By: Katarina Stevens on 04-05-2025 Hemoglobin (Bld) [Mass/Vol] 13.5 g/dL 12.0-15.0 [facility] Immature granulocytes/100 WB C Auto (Bld)Ordered By: Katarina Stevens on 04-05-2025 Immature granulocytes/100 WBC (Bld) 0.400 % 0.0-0.9 [facility] Comment on above: IG% - Immature Granu locytes (promyelocytes, myelocytes and metamyelocytes) > 1% indicates that a LEFT SHIFT is Present. Ketones Test strip Ql (U)Ord ered By: Katarina Stevens on 04-05-2025 Ketones Ql (U) Negative Negative [facility] - Chemistry and C hemistry - challengeOrdered By: Katarina Stevens on 04-05-2025 AST [Catalytic activity/Vol] 22 U/L <32 [facility] MCV (mean corpuscular volume ) determinationOrdered By: Katarina Stevens on 04-05-2025 MCV (RBC) [Entitic vol] 95.3 fL 81-99 [facility] Mean corpuscular hemoglobin (MCH) determinationOrdered By: Katarina Stevens on 04-05-2025 MCH (RBC) [Entitic mass] 31.8 pg 27.0-32.0 [facility] Mean corpuscular hemoglobin concentration (MCHC) determinationOrdered By: Katarina Stevens on 04-05-2025 MCHC (RBC) [Mass/Vol] 33.4 g/dL 32-36 [facility] Mean platelet volume determi nationOrdered By: Katarina Stevens on 04-05-2025 Platelet mean volume (Bld) [Entitic vol] 11.7 fL 6.2-12.0 [facility] Microscopic analysis of urin e for red blood cells (RBC)Ordered By: Katarina Stevens on 04-05-2025 Microscopic analysis of urine for red blood cells (RBC) 0-5 SEEN /hpf 0-5 [facility] Monocyte percentageOrdered B y: Katarina Stevens on 04-05-2025 Monocytes/100 WBC (Bld) 8.7 % 0-10 [facility] Mucus LM Ql (Urine sed)Order ed By: Katarina Stevens on 04-05-2025 Mucus Ql (Urine sed) 0 SEEN /hpf [facility] Neutrophil percentageOrdered By: Katarina Stevens on 04-05-2025 Neutrophils/100 WBC (Bld) 59.8 % 47-70 [facility] Nitrite Test strip Ql (U)Ord ered By: Katarina Stevens on 04-05-2025 Nitrite Ql (U) Negative Negative [facility] Nucleated red blood cell per centageOrdered By: Katarina Stevens on 04-05-2025 Nucleated RBC/100 WBC (Bld) [Ratio] 0 % 0-5 [facility] PTHINon 04-05-2025 PTH 83 pg/mL High 11-61 [facility] Comment on above: Performed By: #### L 500.4050, L501.0900, L506.1001, L100.0100, L400.0001, L509.1000 #### [facility] [address], [place], [id number] Platelet countOrdered By: Do ra Stevens on 04-05-2025 Platelets (Bld) [#/Vol] 216 10*3/uL 150-450 [facility] Potassium measurement (mass/ volume)Ordered By: Katarina Stevens on 04-05-2025 Potassium (Unsp spec) [Mass/Vol] 4.5 mmol/L 3.3-5.1 [facility] Protein Test strip Ql (U)Ord ered By: Katarina Stevens on 04-05-2025 Protein Ql (U) 15 mg/dl High Negative [facility] Protein+Creatinine Ratio,Uri neon 04-05-2025 PROT:CRE RATIO 59 mg/g CRE Normal 0-200 [facility] Comment on above: Performed By: #### L 500.4050, L501.0900, L506.1001, L100.0100, L400.0001, L509.1000 #### [facility] [address] [place], [address] Protein (U) [Mass/Vol] 15.6 mg/dL High 0.0-12.0 [facility] Comment on above: Performed By: #### L 500.4050, L501.0900, L506.1001, L100.0100, L400.0001, L509.1000 #### [facility] [address] [place], [address] UR CREAT 266.00 mg/dL High 28.00-217. 00 [facility] Comment on above: Performed By: #### L 500.4050, L501.0900, L506.1001, L100.0100, L400.0001, L509.1000 #### [facility] [address] [place], [address] RBC Auto (Bld) [#/Vol]Ordere d By: Katarina Stevens on 04-05-2025 RBC (Bld) [#/Vol] 4.24 10*6/uL 4.2-5.4 [facility] Random urine creatinine laz urement (mass/volume)Ordered By: Katarina Stevens on 04-05-2025 Creatinine Unsp time (U) [Mass/Vol] 266.00 mg/dL High 28.00-217. 00 [facility] Serum creatinine measurement (mass/volume)Ordered By: Katarina Stevens on 04-05-2025 Creatinine [Mass/Vol] 1.35 mg/dL High 0.70-1.20 [facility] Serum globulin measurementOr dered By: Katarina Stevens on 04-05-2025 Globulin (S) [Mass/Vol] 2.8 g/dL 2.2-4.2 [facility] Serum glucose measurement (m ass/volume)Ordered By: Katarina Stevens on 04-05-2025 Glucose [Mass/Vol] 104 mg/dL High 70-99 [facility] Serum or plasma alanine taipa otransferase (ALT) measurementOrdered By: Katarina Stevens on 04-05-2025 ALT [Catalytic activity/Vol] 17 U/L <35 [facility] Serum or plasma albumin laz urement (mass/volume)Ordered By: Katarina Stevens on 04-05-2025 Albumin [Mass/Vol] 4.4 g/dL 3.4-4.8 [facility] Serum or plasma albumin/glob ulin mass ratioOrdered By: Katarina Stevens on 04-05-2025 Albumin/Globulin [Mass ratio] 1.6 {ratio} 0.9-2.4 [facility] Serum or plasma alkaline marcos sphatase measurementOrdered By: Katarina Stevens on 04-05-2025 ALP [Catalytic activity/Vol] 146 U/L High 35-104 [facility] Serum or plasma calcium laz urement (mass/volume)Ordered By: Katarina Stevens on 04-05-2025 Calcium [Mass/Vol] 9.8 mg/dL 7.6-11.0 [facility] Serum or plasma urea nitroge n measurement (mass/volume)Ordered By: Katarina Stevens on 04-05-2025 Urea nitrogen [Mass/Vol] 21 mg/dL High 4-19 [facility] Sodium levelOrdered By: Katarina Stevens on 04-05-2025 Sodium [Moles/Vol] 141 mmol/L 133-145 [facility] Squamous epithelial cells de tection in urine sediment by light microscopyOrdered By: Katarina Stevens on 04-05-2025 Epithelial cells.squamous LM Ql (Urine sed) 0-5 SEEN /hpf 5-10 [facility] Total proteinOrdered By: Kennedy Stevens on 04-05-2025 Protein [Mass/Vol] 7.2 g/dL 5.9-8.4 [facility] Urinalysis, Completeon 04-05 EPI,SQUAMOUS 0-5 SEEN Normal 5-10 [facility] Comment on above: Order Comment: COLLE CTOR TO SPECIFY Performed By: #### L 500.4050, L501.0900, L506.1001, L100.0100, L400.0001, L509.1000 #### [facility] [address] [place], [address] RBC 0-5 SEEN Normal 0-5 [facility] Comment on above: Order Comment: COLLE CTOR TO SPECIFY Performed By: #### L 500.4050, L501.0900, L506.1001, L100.0100, L400.0001, L509.1000 #### [facility] [address] [place], [address] WBC 10-25 SEEN Normal 0-5 [facility] Comment on above: Order Comment: GABRIELA CTOR TO SPECIFY Performed By: #### L 500.4050, L501.0900, L506.1001, L100.0100, L400.0001, L509.1000 #### [facility] [address] [place], [address] BACTERIA 0 SEEN Normal None Seen [facility] Comment on above: Order Comment: GABRIELA CTOR TO SPECIFY Performed By: #### L 500.4050, L501.0900, L506.1001, L100.0100, L400.0001, L509.1000 #### [facility] [address] [place], [address] Mucus Ql (Urine sed) 0 SEEN Normal [facility] Comment on above: Order Comment: GABRIELA CTOR TO SPECIFY Performed By: #### L 500.4050, L501.0900, L506.1001, L100.0100, L400.0001, L509.1000 #### [facility] [address] [place], [place], [id number] Urine clarityOrdered By: Kennedy Stevens on 04-05-2025 Clarity (U) Clear Clear [facility] Urine color determinationOrd ered By: Katarina Stevens on 04-05-2025 Color (U) Yellow Yellow [facility] Urine glucose detectionOrder ed By: Katarina Stevens on 04-05-2025 Glucose Ql (U) Normal mg/dl Normal [facility] Urine leukocyte esterase det ection by dipstickOrdered By: Katarina Stevens on 04-05-2025 Leukocyte esterase Test strip Ql (U) 100 /ul High Negative [facility] Urine pHOrdered By: Katarina wright on 04-05-2025 pH (U) 5.0 [pH] 5.0 - 8.0 [facility] Urine protein measurement (m ass/volume)Ordered By: Katarina Stevens on 04-05-2025 Protein (U) [Mass/Vol] 15.6 mg/dL High 0.0-12.0 [facility] Urine protein/creatinine mas s ratioOrdered By: Katarina Stevens on 04-05-2025 Protein/Creatinine (U) [Mass ratio] 59 mg/g CRE 0-200 [facility] Urine sediment bacteria coun t by microscopy (number/high power field)Ordered By: Katarina Stevens on 04-05-2025 Bacteria LM.HPF (Urine sed) [#/Area] 0 /[HPF] None Seen [facility] Urine specific gravity measu rementOrdered By: Katarina Stevens on 04-05-2025 Specific gravity (U) [Rel density] 1.020 1.002-1.03 0 [facility] Urine urobilinogen measureme ntOrdered By: Katarina Stevens on 04-05-2025 Urobilinogen Ql (U) Normal mg/dl Normal [facility] Vitamin D,25 Hydroxyon 04-05 Vitamin D 25-OH 45.7 ng/mL Normal 30-100 [facility] Comment on above: Result Comment: Nalini min D Status Deficiency: <20 ng/mL (50nmol/L) Insufficiency: 20-30 ng/mL (50-75 nmol/L) Sufficiency: 30-100 ng/mL (75-250 nmol/L) Toxicity: >100 ng/mL (>250 nmol/L) Performed By: #### L 500.4050, L501.0900, L506.1001, L100.0100, L400.0001, L509.1000 #### [facility] [address] [place], [place] [address], [address] White blood cell (WBC) count Ordered By: Katarina Stevens on 04-05-2025 WBC (Bld) [#/Vol] 8.2 10*3/uL 4.4-11.0 [facility] White blood cell countOrdere d By: Katarina Stevens on 04-05-2025 White blood cell count 10-25 SEEN /hpf 0-5 [facility] 36on 03-23-2025 36 Name of caller: [place] Contact phone number: [phone] Relationship to Patient: patient Provider: MD Anthony Practice: [facility] Chief Complaint/Reason for Call: Patient called in requesting that her PT referral be sent to [facility] phone # [phone] Please be advised Best time of day caller can be reached: Any Patient advised that office/PCP has 24-48 business hours to return their call: N/A Normal [facility] Urine Cultureon 03-03-2025 [facility] Culture exhibits no growth. Normal [facility] Comment on above: Performed By: #### M 100.2200 #### [facility] [address] [place], [address] Laboratory - Chemistry and C hemistry - challengeOrdered By: Katarina Stevens on 02-28-2025 Bilirubin Ql (U) Negative [facility] Glucose Ql (U) Negative [facility] Ketones Ql (U) Negative [facility] pH (U) 6.0 [pH] [facility] Specific gravity (U) [Rel density] 1.005 [facility] Urobilinogen (U) [Mass/Vol] 0.0828199 mg/dL [facility] Laboratory - Hematology and Cell countsOrdered By: Katarina Stevens on 02-28-2025 Hemoglobin Ql (U) Negative [facility] - Specimen inform ationOrdered By: Katarina Stevens on 02-28-2025 Clarity (U) Clear [facility] Color (U) YELLOW [facility] Laboratory - UrinalysisOrder ed By: Katarina Stevens on 02-28-2025 Nitrite Ql (U) Negative [facility] Protein Ql (U) Negative [facility] No Panel InformationOrdered By: Katarina Stevens on 02-28-2025 Urine Leukocytes Positive [facility] Urine Non-Hemolyzed Blood [facility] Urine cultureOrdered By: Kennedy Stevens on 02-28-2025 Bacteria identified Cx Nom (U) Culture exhibits no growth. [facility] Office Visiton 02-10-2025 Follow-up visit [id number] Milena Mcghee 1945 F Date Provider Department Center 02/10/2025 [id number]-LKTNPNDCHANTELL CRUZ [facility] PN None Family History Adopted: Yes Level of Service:29344 [place] OFFICE/OUTPATIENT ESTABLISHED MOD MDM 30 MIN Reason for Visit and Comments: Follow-up [508798] - Pt is here for a follow up from the second Bilateral L4-5 lumbar MBB which was done on 02/03/2025. Normal [facility] Progress Noteon 02-10-2025 Progress Note [facility] [address] [facility] [address] [facility] [address] Dept: [phone] Dept Chief Complaint Patient presents with Follow-up Pt is here for a follow up from the second Bilateral L4-5 lumbar MBB which was done on 02/03/2025. SUBJECTIVE HPI: Milena Mcghee is a 79 y.o. year old here today for follow-up of chronic low back pain. Since last visit, she reported about 5-6 hours of 100% pain relief following her first bilateral L4 and L5 MBB on 01/20/2025, but only about 20% relief after her second 1 on 02/03/2025. LOCATION OF PAIN: Across low back (left more so than right sided, but bilateral) RADIATES: into bilateral posterolateral hips / buttocks CONSTANT/INTERMITTENT: Constant NUMBNESS/TINGLING? denies WEAKNESS? denies URINARY/FECAL INCONTINENCE? No SADDLE ANESTHESIA? no INTERFERING WITH SLEEP? No CURRENT PAIN MEDS: Tylenol 1000 mg PRN (usually once or twice a day), Gabapentin 600 mg daily ANY SIGNIFICANT SIDE EFFECTS FROM CURRENT PAIN MEDS? no ARE THEY PROVIDING ADEQUATE ANALGESIA? mild ARE THEY PROVIDING ADEQUATE FUNCTIONAL IMPROVEMENT? mild PAIN MEDS PREVIOUSLY TRIED/FAILED: Meloxicam (had helped but had to stop due to kidney function concerns), duloxetine (side effects), lidocaine patches OTHER CURRENT / PREVIOUS TREATMENT Physical therapy -- Last did shortly after her most recent back surgery in 2018 TENS -- No Chiropractor -- No Acupuncture -- No Prior Pain Clinic -- Dr Morrison in [place] Chronic opiates -- No Previous Pain Procedures -- some previous lumbar injections prior to her back surgeries 09/10/20 -- LEFT L4 and L5 TFESI -- >50% improvement in leg symptoms, only 2 days of relief of axial back pain 02/25/21 -- LEFT SI joint -- 30% improvement in pain, >50% improvement in function / ambulation Patient Active Problem List Diagnosis Date Noted Sacroiliitis (HCC) 02/25/2021 Epigastric pain 01/16/2021 BRBPR (bright red blood per rectum) 01/16/2021 Lumbar radiculopathy 09/10/2020 Closed nondisplaced fracture of base of fourth metacarpal bone of left hand 02/21/2019 Displaced fracture of base of fifth metacarpal bone of left hand 02/21/2019 Nausea & vomiting 02/14/2018 Nausea and vomiting 02/14/2018 Allergies Allergen Reactions Codeine Nausea And Vomiting and Unknown Other reaction(s): GI Upset, spinning adn vomiting Nitrofurantoin Hives and Other Prednisone Other reaction(s): nevous unable to sleep, Other, Unknown Seasonal Rash and Nausea And Vomiting Sulfa Antibiotics Rash, Swelling and Other Other reaction(s): swelling of the throat Other reaction(s): swelling of the throat Oxycodone Nausea And Vomiting Promethazine Other Other reaction(s): makes me act drunk Sulfasalazine Rash Family History Adopted: Yes Past Medical History: Diagnosis Date Age-related nuclear cataract of right eye 11/17/2024 Age-related nuclear cataract, left 12/22/2024 Cholecystitis, chronic Chronic back pain Chronic kidney disease STAGE 3 Closed nondisplaced fracture of base of fourth metacarpal bone of left hand 02/21/2019 Displaced fracture of base of fifth metacarpal bone of left hand 02/21/2019 Displaced fracture of base of fourth metacarpal bone of left hand 02/21/2019 GERD (gastroesophageal reflux disease) Hyperlipidemia Hypertension Osteoarthritis PONV (postoperative nausea and vomiting) Social History Socioeconomic History Marital status: Spouse name: Not on file Number of children: Not on file Years of education: Not on file Highest education level: Not on file Occupational History Not on file Tobacco Use Smoking status: Never Passive exposure: Never Smokeless tobacco: Never Vaping Use Vaping status: Never Used Substance and Sexual Activity Alcohol use: No Drug use: No Sexual activity: Not on file Other Topics Concern Not on file Social History Narrative Not on file Social Drivers of Health Financial Resource Strain: Not on file Food Insecurity: Not on file Transportation Needs: No Transportation Needs (11/14/2024) PRAPARE - Transportation Lack of Transportation (Medical): No Lack of Transportation (Non-Medical): No Physical Activity: Not on file Stress: Not on file Social Connections: Not on file Intimate Partner Violence: Not on file Housing Stability: Not on file Past Surgical History: Procedure Laterality Date BACK SURGERY 2013 and 2018 L3-4 fusion CHOLECYSTECTOMY COLONOSCOPY Current Outpatient Medications Medication Sig Dispense Refill acetaminophen (Tylenol) 500 MG tablet every 8 hours as needed. amLODIPine (Norvasc) 5 MG tablet Take 1 tablet by mouth every morning (before breakfast). atorvastatin (Lipitor) 10 MG tablet Take 1 tablet by mouth every morning (before breakfast). cholecalciferol (Vitamin D-3) 50 MCG (2000 UT) tablet Take by mouth daily. gabapentin (Neurontin) 300 MG capsule Take 6 (more content not included)... [facility] 36on 02-06-2025 36 Reached out to pt fo r relief information from the second Bilateral L3-5 lumbar MBB which was done on 02/03/2025. Follow up appointment has been scheduled in office. [facility] No Panel Informationon 02-03 There is no interpre tation needed for this exam. IMAGING Op Noteon 02-03-2025 Op Note OPERATIVE NOTE DATE: 02/03/25 LOCATION: [facility] PROCEDURE: Bilateral L4 and L5 Medial Branch Nerve Blocks under Fluoroscopic Guidance PERFORMED BY: Chantell Cruz MD PRE-OPERATIVE DIAGNOSIS: Lumbar Spondylosis without Radiculopathy or Myelopathy POST-OPERATIVE DIAGNOSIS: Same ANESTHESIA: Local DESCRIPTION: History and physical examination were performed and informed consent obtained. A ?time out? with 2 active identifiers of the patient, the procedure, and the site was performed. The patient was positioned prone on the fluoroscopy table. A sterile prep and drape of the area was performed and approximately 6 cc total of 1% lidocaine was used to provide local anesthesia. Fluoroscopy was used to identify the RIGHT facet joints between L5-S1. A 25-gauge, 3.5 inch spinal needle was placed under fluoroscopic guidance in the oblique and lateral views, and directed to the junction of the superior articular process with the transverse process at each level (L5 and sacral ala, for the corresponding L4, and L5 medial branch nerves, respectively). After os was contacted at each junction, and aspiration was negative, approximately 0.5 cc of 2% lidocaine was injected at each junction. No paresthesias were elicited. No blood or spinal fluid was aspirated prior to injection. The same technique was then used to block the LEFT L4 and L5 medial branch nerves with the same injectate. The patient tolerated the procedure well. No complications were noted, and the patient was discharged home in stable condition. [place] [id number] 36 Office will contact patient to schedule [place] [id number] 36 Name of caller: [place] Contact phone number: [phone] Relationship to Patient: patient Provider: Dr Cruz Practice: Pain Management Chief Complaint/Reason for Call: Pt calling back to check on next injection. Pt states initial injection lasted about 8 hours. Please call back to advise. Best time of day caller can be reached: Any Patient advised that office/PCP has 24-48 business hours to return their call: Yes [place] [id number] 36 Not sure what to hever e of that groin / leg pain, but the back pain in this case was 100% better for 5-6 hrs, so we can proceed with MBB #2 now under fluoro [place] [id number] 36 Message released to patient as written. Patient's further questions if applicable: Pt returned call from office and gave the following responses... Using the pain scale above what was the pain prior to the injection and what was the pain following the injection? Prior to injection pain level varied depending on activity. Pain level was 4/5 sitting and 8/9 with activity. 2.The percentage of relief from the lumbar MBB? Immediately after pain was 0 3. How long did the relief last? Lasted about 5 or 6 hours before Pt started feeling it wear off. Pt also advised on the drive home from the injection she had really intense groin and left leg pain and then the next morning upper right leg pain that was also really intense. Please advise Were all questions from office addressed or relayed to the patient from encounter: N/A [facility] No Panel Informationon 01-20 There is no interpre tation needed for this exam. IMAGING Nursing Noteon 01-20-2025 Nursing Note Discharged to home . Local anesthesia, patient escorted to waiting room. . AVS and education reviewed with patient she verbalized understanding. All questions answered and patient denies dizziness or nausea. Denies any numbness or weakness, vital signs are stable. Patient valuables sent. Normal [facility] Op Noteon 01-20-2025 Op Note OPERATIVE NOTE DATE: 01/21/24 LOCATION: [facility] PROCEDURE: Bilateral L4 and L5 Medial Branch Nerve Blocks under Fluoroscopic Guidance PERFORMED BY: Chantell Cruz MD PRE-OPERATIVE DIAGNOSIS: Lumbar Spondylosis without Radiculopathy or Myelopathy POST-OPERATIVE DIAGNOSIS: Same ANESTHESIA: Local DESCRIPTION: History and physical examination were performed and informed consent obtained. A ?time out? with 2 active identifiers of the patient, the procedure, and the site was performed. The patient was positioned prone on the fluoroscopy table. A sterile prep and drape of the area was performed and approximately 8 cc total of 1% lidocaine was used to provide local anesthesia. Fluoroscopy was used to identify the RIGHT facet joints between L5-S1. A 25-gauge, 3.5 inch spinal needle was placed under fluoroscopic guidance in the oblique and lateral views, and directed to the junction of the superior articular process with the transverse process at each level (L5 and sacral ala, for the corresponding L4, and L5 medial branch nerves, respectively). After os was contacted at each junction, and aspiration was negative, approximately 0.5 cc of 2% lidocaine was injected at each junction. No paresthesias were elicited. No blood or spinal fluid was aspirated prior to injection. The same technique was then used to block the LEFT L4 and L5 medial branch nerves with the same injectate. The patient tolerated the procedure well. No complications were noted, and the patient was discharged home in stable condition. Normal [facility] Urine Cultureon 01-07-2025 URC Escherichia coli Farley Count 11,000-25,000 Escherichia coli: REACTION Ampicillin Islt IRINEO 4 Ampicillin+Sulbac Islt IRINEO <=2 S Cefepime Islt IRINEO <=0.12 S cefTRIAXone Islt IRINEO <=0.25 S Ciprofloxacin Islt IRINEO >=4 R B-Lactamase Extended Susc Islt NEG Gentamicin Islt IRINEO <=1 S levoFLOXacin Islt IRINEO >=8 R Meropenem Islt IRINEO <=0.25 S Nitrofurantoin Islt IRINEO <=16 S Pip+Tazo Islt IRINEO <=4 S TMP SMX Islt IRINEO <=20 S [facility] Comment on above: Performed By: #### M 100.2200 #### [facility] [address] [place], [address] Laboratory - Chemistry and C hemistry - challengeOrdered By: Katarina Stevens on 01-04-2025 Bilirubin Ql (U) Negative [facility] Glucose Ql (U) Negative [facility] Ketones Ql (U) Negative [facility] pH (U) 5.5 [pH] [facility] Specific gravity (U) [Rel density] 1.025 [facility] Urobilinogen (U) [Mass/Vol] 0.7568045 mg/dL [facility] Laboratory - Hematology and Cell countsOrdered By: Katarina Stevens on 01-04-2025 Hemoglobin Ql (U) Trace [facility] - Specimen inform ationOrdered By: Katarina Stevens on 01-04-2025 Clarity (U) Clear [facility] Color (U) YELLOW [facility] Laboratory - UrinalysisOrder ed By: Katarina Stevens on 01-04-2025 Nitrite Ql (U) Negative [facility] No Panel InformationOrdered By: Katarina Stevens on 01-04-2025 Urine Leukocytes Positive [facility] Urine Non-Hemolyzed Blood [facility] Urine cultureOrdered By: Kennedy Stevens on 01-04-2025 Bacteria identified Cx Nom (U) Escherichia coli Abnormal [facility] Office Visiton 12-30-2024 Follow-up visit [id number] Milena Mcghee 1945 F Date Provider Department Center 12/30/2024 [id number]-EBFYQDICHANTELL CRUZ [facility] PN None Family History Adopted: Yes Level of Service:[address] [place] OFFICE/OUTPATIENT ESTABLISHED MOD MDM 30 MIN Reason for Visit and Comments: Back Pain [12] Normal [facility] Progress Noteon 12-30-2024 Progress Note [facility] [address] [facility] [address] [facility] [address] Dept: [phone] Dept Chief Complaint Patient presents with Back Pain SUBJECTIVE HPI: Milena Mcghee is a 79 y.o. year old here today for follow-up of chronic low back pain. She was last seen by me back in 10/2023. Her back pain has been progressively worsening since then. LOCATION OF PAIN: Across low back (not just left-sided anymore) RADIATES: into bilateral posterolateral hips / buttocks CONSTANT/INTERMITTENT: Constant NUMBNESS/TINGLING? denies WEAKNESS? denies URINARY/FECAL INCONTINENCE? No SADDLE ANESTHESIA? no INTERFERING WITH SLEEP? No CURRENT PAIN MEDS: Tylenol 1000 mg PRN (usually once or twice a day), Gabapentin 600 mg daily ANY SIGNIFICANT SIDE EFFECTS FROM CURRENT PAIN MEDS? no ARE THEY PROVIDING ADEQUATE ANALGESIA? mild ARE THEY PROVIDING ADEQUATE FUNCTIONAL IMPROVEMENT? mild PAIN MEDS PREVIOUSLY TRIED/FAILED: Meloxicam (had helped but had to stop due to kidney function concerns), duloxetine (side effects), lidocaine patches OTHER CURRENT / PREVIOUS TREATMENT Physical therapy -- Last did shortly after her most recent back surgery in 2017 TENS -- No Chiropractor -- No Acupuncture -- No Prior Pain Clinic -- Dr Morrison in [place] Chronic opiates -- No Previous Pain Procedures -- some previous lumbar injections prior to her back surgeries 09/10/20 -- LEFT L4 and L5 TFESI -- >50% improvement in leg symptoms, only 2 days of relief of axial back pain 02/25/21 -- LEFT SI joint -- 30% improvement in pain, >50% improvement in function / ambulation Patient Active Problem List Diagnosis Date Noted Sacroiliitis (HCC) 02/25/2021 Epigastric pain 01/16/2021 BRBPR (bright red blood per rectum) 01/16/2021 Lumbar radiculopathy 09/10/2020 Closed nondisplaced fracture of base of fourth metacarpal bone of left hand 02/21/2019 Displaced fracture of base of fifth metacarpal bone of left hand 02/21/2019 Nausea & vomiting 02/14/2018 Nausea and vomiting 02/14/2018 Allergies Allergen Reactions Codeine Nausea And Vomiting and Unknown Other reaction(s): GI Upset, spinning adn vomiting Nitrofurantoin Hives and Other Prednisone Other reaction(s): nevous unable to sleep, Other, Unknown Seasonal Rash and Nausea And Vomiting Sulfa Antibiotics Rash, Swelling and Other Other reaction(s): swelling of the throat Other reaction(s): swelling of the throat Oxycodone Nausea And Vomiting Promethazine Other Other reaction(s): makes me act drunk Sulfasalazine Rash Family History Adopted: Yes Past Medical History: Diagnosis Date Age-related nuclear cataract of right eye 11/17/2024 Age-related nuclear cataract, left 12/22/2024 Cholecystitis, chronic Chronic back pain Chronic kidney disease STAGE 3 Closed nondisplaced fracture of base of fourth metacarpal bone of left hand 02/21/2019 Displaced fracture of base of fifth metacarpal bone of left hand 02/21/2019 Displaced fracture of base of fourth metacarpal bone of left hand 02/21/2019 GERD (gastroesophageal reflux disease) Hyperlipidemia Hypertension Osteoarthritis PONV (postoperative nausea and vomiting) Social History Socioeconomic History Marital status: Spouse name: Not on file Number of children: Not on file Years of education: Not on file Highest education level: Not on file Occupational History Not on file Tobacco Use Smoking status: Never Passive exposure: Never Smokeless tobacco: Never Vaping Use Vaping status: Never Used Substance and Sexual Activity Alcohol use: No Drug use: No Sexual activity: Not on file Other Topics Concern Not on file Social History Narrative Not on file Social Drivers of Health Financial Resource Strain: Not on file Food Insecurity: Not on file Transportation Needs: No Transportation Needs (11/14/2024) PRAPARE - Transportation Lack of Transportation (Medical): No Lack of Transportation (Non-Medical): No Physical Activity: Not on file Stress: Not on file Social Connections: Not on file Intimate Partner Violence: Not on file Housing Stability: Not on file Past Surgical History: Procedure Laterality Date BACK SURGERY 2013 and 2017 L3-4 fusion CHOLECYSTECTOMY COLONOSCOPY Current Outpatient Medications Medication Sig Dispense Refill acetaminophen (Tylenol) 500 MG tablet every 8 hours as needed. amLODIPine (Norvasc) 5 MG tablet Take 1 tablet by mouth every morning (before breakfast). atorvastatin (Lipitor) 10 MG tablet Take 1 tablet by mouth every morning (before breakfast). cholecalciferol (Vitamin D-3) 50 MCG (2000 UT) tablet Take by mouth daily. gabapentin (Neurontin) 300 MG capsule Take 600 mg by mouth every morning (before breakfast). ketorolac (Acular) 0.5 % ophthalmic solution INSTILL 1 DROP INTO AFFECTED EYE 4 TIMES DAILY. BRING TO SURGERY CENTER FOR USE AFTER CATARACT SURGERY li (more content not included)... Normal [facility] Op Noteon 12-26-2024 Op Note Operative Report NAME: Milena Mcghee : 1945 AGE: 79 y.o. SURGEON: Prema Garcia M.D. OPERATIVE EYE: left PREOPERATIVE DIAGNOSIS: 1. Nuclear sclerotic cataract. POSTOPERATIVE DIAGNOSIS: 1. Nuclear sclerotic cataract. OPERATION: Cataract extraction by phacoemulsification with placement of posterior chamber intraocular lens implant. SCHOOL COOK: See operating room record ASSOCIATE EMBALMER/FUNERAL DIRECTOR: See operating room record ANESTHESIA: Local with topical tetracaine drops and monitored anesthesia care. COMPLICATIONS: None. INDICATIONS: as delineated PROCEDURE: The patient was brought to the operating room, placed in supine position. Attention was given to the operative eye. Under monitored anesthesia care, multiple drops of topical tetracaine were administered. The eye was then prepped and draped in the usual sterile ophthalmic fashion. A wire lid speculum was placed in the operative microscope was used. A 1.0 mm slide port blade was then used to create paracentesis at the 2 o'clock position. Through this incision, 2% lidocaine preservative-free was instilled into the anterior chamber. Following this, Viscoelastic was then used to inflate the anterior chamber and coat the endothelial surface. A 2.4 mm microkeratome was then used to create a triplanar clear corneal incision at the 11 o'clock position. A pre-bent cystotome was then used to initiate an anterior capsulorrhexis. A Utrata forceps was then used to complete the capsulorrhexis and a curvilinear fashion. Balanced salt solution on a flat-tipped cannula was then used to perform hydrodissection and hydrodelineation of the lens. It was confirmed that the lens was freely mobile within the capsular bag phacoemulsification was then performed in a divide and conquer manner to remove the lens nucleus. Phacoemulsification time was CDE 8.13. Automated irrigation and aspiration was then performed to remove all cortical remnants. Capsular bag was inflated using Provisc. The lens injector was then used to place an Akreos MI60L +18.50 diopter intraocular lens directly into the capsular bag. It was rotated in the proper position using the Duran wand. The residual Viscoelastic was then removed using automated irrigation and aspiration. The wounds were hydrated using balanced salt solution. There were check for leaks and none were found. Topical antibiotic drops and antibiotic/steroid ointment were placed. The eye was patched and shielded. The patient was transferred to the postanesthesia care unit in good condition. Prema Garcia MD 12/26/24 9:32 AM Normal [facility] Urine Cultureon 12-11-2024 [facility] Escherichia coli Farley Count 80,000-100,000 Escherichia coli: REACTION Ampicillin Islt IRINEO <=2 Ampicillin+Sulbac Islt IRINEO <=2 S Cefepime Islt IRINEO <=0.12 S cefTRIAXone Islt IRINEO <=0.25 S Ciprofloxacin Islt IRINEO >=4 R B-Lactamase Extended Susc Islt NEG Gentamicin Islt IRINEO <=1 S levoFLOXacin Islt IRINEO >=8 R Meropenem Islt IRINEO <=0.25 S Nitrofurantoin Islt IRINEO <=16 S Pip+Tazo Islt IRINEO <=4 S TMP SMX Islt IRINEO <=20 S Normal [facility] Comment on above: Performed By: #### M 100.2200 #### [facility] [address] [place], [place] [address], [place], [address] Laboratory - Chemistry and C hemistry - challengeOrdered By: Katarina Stevens on 12-08-2024 Bilirubin Ql (U) Negative [facility] Glucose Ql (U) Negative [facility] Ketones Ql (U) Negative [facility] pH (U) 5.5 [pH] [facility] Specific gravity (U) [Rel density] 1.020 [facility] Urobilinogen (U) [Mass/Vol] 0.4905165 mg/dL [facility] Laboratory - Hematology and Cell countsOrdered By: Katarina Stevens on 12-08-2024 Hemoglobin Ql (U) Trace [facility] Laboratory - Specimen inform ationOrdered By: Katarina Stevens on 12-08-2024 Clarity (U) Clear [facility] Color (U) YELLOW [facility] Laboratory - UrinalysisOrder ed By: Katarina Stevens on 12-08-2024 Nitrite Ql (U) Negative [facility] Protein Ql (U) Negative [facility] No Panel InformationOrdered By: Katarina Stevens on 12-08-2024 Urine Leukocytes Positive [facility] Urine Non-Hemolyzed Blood [facility] Urine cultureOrdered By: Kennedy Stevens on 12-08-2024 Bacteria identified Cx Nom (U) Escherichia coli Abnormal [facility] Bacteria identified Cx Nom (U) Escherichia coli Abnormal [facility] 29on 11-21-2024 29 Addendum created 01/10 0912 by ANGIE Montgomery CRNA Flowsheet accepted Normal [facility] Op Noteon 11-21-2024 Op Note Operative Report NAME: Milena Mcghee : 1945 AGE: 79 y.o. SURGEON: Prema Garcia M.D. OPERATIVE EYE: right PREOPERATIVE DIAGNOSIS: 1. Nuclear sclerotic cataract. POSTOPERATIVE DIAGNOSIS: 1. Nuclear sclerotic cataract. OPERATION: Cataract extraction by phacoemulsification with placement of posterior chamber intraocular lens implant. SCHOOL COOK: See operating room record ASSOCIATE EMBALMER/FUNERAL DIRECTOR: See operating room record ANESTHESIA: Local with topical tetracaine drops and monitored anesthesia care. COMPLICATIONS: None. INDICATIONS: as delineated PROCEDURE: The patient was brought to the operating room, placed in supine position. Attention was given to the operative eye. Under monitored anesthesia care, multiple drops of topical tetracaine were administered. The eye was then prepped and draped in the usual sterile ophthalmic fashion. A wire lid speculum was placed in the operative microscope was used. A 1.0 mm slide port blade was then used to create paracentesis at the 2 o'clock position. Through this incision, 2% lidocaine preservative-free was instilled into the anterior chamber. Following this, Viscoelastic was then used to inflate the anterior chamber and coat the endothelial surface. A 2.4 mm microkeratome was then used to create a triplanar clear corneal incision at the 11 o'clock position. A pre-bent cystotome was then used to initiate an anterior capsulorrhexis. A Utrata forceps was then used to complete the capsulorrhexis and a curvilinear fashion. Balanced salt solution on a flat-tipped cannula was then used to perform hydrodissection and hydrodelineation of the lens. It was confirmed that the lens was freely mobile within the capsular bag phacoemulsification was then performed in a divide and conquer manner to remove the lens nucleus. Phacoemulsification time was CDE 11.99. Automated rrigation and aspiration was then performed to remove all cortical remnants. Capsular bag was inflated using Provisc. The lens injector was then used to place an Akreos MI60L +17.50 diopter intraocular lens directly into the capsular bag. It was rotated in the proper position using the Duran wand. The residual Viscoelastic was then removed using automated irrigation and aspiration. The wounds were hydrated using balanced salt solution. There were check for leaks and none were found. Topical antibiotic drops and antibiotic/steroid ointment were placed. The eye was patched and shielded. The patient was transferred to the postanesthesia care unit in good condition. Prema Garcia MD 11/21/24 8:35 AM Normal [facility] [id number] 11-14-2024 [id number] Medication List Accurate as of November 14, 2024 12:10 PM. Always use your most recent med list. acetaminophen 500 MG tablet Commonly known as: Tylenol amLODIPine 5 MG tablet Commonly known as: Norvasc atorvastatin 10 MG tablet Commonly known as: Lipitor * cholecalciferol 50 MCG (2000 UT) capsule Commonly known as: Vitamin D-3 * cholecalciferol 50 MCG (2000 UT) tablet Commonly known as: Vitamin D-3 gabapentin 300 MG capsule Commonly known as: Neurontin lisinopril 20 MG tablet Multi Vitamin tablet * This list has 2 medication(s) that are the same as other medications prescribed for you. Read the directions carefully, and ask your doctor or other care provider to review them with you. Additional Instructions: You may take your prescription pain medication. You may take Tylenol for pain. NO Motrin, ibuprofen or Advil for 24 hours prior to surgery or longer if instructed by your surgeon. NO Aleve or Naprosyn for 5 days prior to surgery or longer if instructed by your surgeon. ALL MEDICATIONS MAY CONTINUE SCHEDULED INCLUDING THE MORNING OF SURGERY BRING EYE GTTS FROM PHARMACY THE MORNING OF SURGERY- DO NOT USE EYE GTTS THE MORNING OF. Shower with an antibacterial soap such as Dial or Safeguard or shower kit provided to you before coming to the hospital. No makeup, lotion, powder, deodorant or body spays. No hair products. Remove all jewelry and leave it at home. Wear loose comfortable clothing to go home in. You may brush your teeth morning of surgery. Do not wear contacts day of surgery. No marijuana (THC), smoking or alcohol for 24 hours prior to surgery. Please arrange for a responsible adult to drive you home after your surgery and that there is a responsible adult with you for 24 hours post discharge. If you have specific questions, please call your surgeon. You will receive a call the day before your surgery to verify your arrival time and date. You will be asked to arrive at least two hours prior to your scheduled surgery time. Please bring your [facility] folder and medication list with you day of surgery. We encourage you to write down any questions you may have for the surgeon, anesthesiologist, or other members of the surgical team and bring it with you the day of surgery. Please bring photo ID and insurance information. Normal [facility] Progress Noteon 11-14-2024 Progress Note [facility] YULIANA Mcghee : 1945 Primary Care Physician: KATARINA STEVENS The patient and/or family/surrogate voluntarily agreed to participate in ACP services. 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 . [Condition that instigated the ACP on this DOS, relevant PMH, functional status, goals of care, and whom this was discussed with including names and relationship to the patient, and any relevant advance care documentation discussion] I answered all the patient/family questions that I could within the range and scope of the current medical situation. We discussed the medical conditions, risks, benefits, outcomes, and goals of care at this time for the patient's medical issues at hand in the face of the patient's chronic issues and current presentation. Total time spent: 5 minutes were spent discussing the patient's resuscitation status, advance care planning, and end of life care, with patient and/or family/surrogate. Anthony Lopez PA-C [employer] [facility] 11/14/2024, 12:20 PM Normal [facility] Urine Cultureon 10-01-2024 URC Below infection darion rodriguez Urine Culture Gram negative adis Farley Count 1000-10,000 Normal [facility] Comment on above: Performed By: #### M 770.4000 #### [facility] [address] [place], [address] Laboratory - Chemistry and C hemistry - challengeon 09-29-2024 Bilirubin Ql (U) Negative [facility] Glucose Ql (U) Negative [facility] Ketones Ql (U) Negative [facility] pH (U) 5.5 [pH] [facility] Urobilinogen (U) [Mass/Vol] 0.9518315 mg/dL [facility] - Hematology and Cell countson 09-29-2024 Hemoglobin Ql (U) Negative [facility] - Specimen inform ationon 09-29-2024 Clarity (U) Clear [facility] Color (U) YELLOW [facility] Laboratory - Urinalysison Nitrite Ql (U) Negative [facility] Protein Ql (U) Trace [facility] No Panel Informationon 09-29 Urine Leukocytes Negatve [facility] Urine Non-Hemolyzed Blood [facility] Urine cultureOrdered By: Kennedy Stevens on 09-29-2024 Bacteria identified Cx Nom (U) Negative Abnormal [facility] Bacteria identified Cx Nom (U) Negative Abnormal [facility] DBT Breast - bilateral scree anagon 07-06-2024 No mammographic evid ence of malignancy. ASSESSMENT: Category 1 Negative RECOMMENDATION: Routine screening mammogram in 1 year. Bilateral CANCER RISK ASSESSMENT: This risk assessment is based on patient provided information collected in a risk survey taken at the time of this examination. LIFETIME BREAST CANCER RISK: Pari 8: 2.96% - If greater than or equal to 20%, consider annual mammogram and annual screening Breast MRI or follow up in high risk clinic. Is the patient at elevated risk based on the HBOC criteria? No (Hereditary Breast and Ovarian Cancer) - If Yes, consider genetic counseling and testing with high risk follow up Is the patient at elevated risk based on the Díaz Syndrome criteria? No - If Yes, consider genetic counseling and testing with high risk follow up. Report Dictated on Electronically Signed By: Winsome Sheth MD Electronically Signed Date/Time: 07/06/2024 9:52 AM EDT [facility] Patient Name: MILENA MCGHEE : 1945 Exam Date/Time: 07/06/2024 09:13 Procedure: BI MAMMOGRAM SCREENING TOMOSYNTHESIS BILATERAL Ordering Provider: STEVENS DORA Reason For Exam: This exam was performed at: [facility] [address] [facility] [address] PATIENT CANCER HISTORY: No Personal History of Cancer FAMILY CANCER HISTORY: No Family History of Cancer Image views: 2D Bilateral CC and MLO views were acquired. 3D Bilateral CC and MLO views were acquired. Images were reviewed with CAD. Markings on images: BB's = Nipples; skin lesions Open yuhaaviatam = Palpable Line = Scar COMPARISON: 06/13/2022 and 06/08/2020 TISSUE DENSITY: BIRADS B - There are scattered areas of fibroglandular density. FINDINGS: No suspicious masses, architectural distortions or suspiciously clustered microcalcifications are identified. There is no evidence of skin thickening or nipple retraction. There are no significant changes when compared with prior studies. [facility] Winsome Sheth MD - 07/06/2024 Patient Name: MILENA MCGHEE : 1945 Exam Date/Time: 07/06/2024 09:13 Procedure: BI MAMMOGRAM SCREENING TOMOSYNTHESIS BILATERAL Ordering Provider: STEVENS DORA Reason For Exam: This exam was performed at: [facility] [address] [facility] [address] PATIENT CANCER HISTORY: No Personal History of Cancer FAMILY CANCER HISTORY: No Family History of Cancer Image views: 2D Bilateral CC and MLO views were acquired. 3D Bilateral CC and MLO views were acquired. Images were reviewed with CAD. Markings on images: BB's = Nipples; skin lesions Open yuhaaviatam = Palpable Line = Scar COMPARISON: 06/13/2022 and 06/08/2020 TISSUE DENSITY: BIRADS B - There are scattered areas of fibroglandular density. FINDINGS: No suspicious masses, architectural distortions or suspiciously clustered microcalcifications are identified. There is no evidence of skin thickening or nipple retraction. There are no significant changes when compared with prior studies. IMPRESSION: No mammographic evidence of malignancy. ASSESSMENT: Category 1 Negative RECOMMENDATION: Routine screening mammogram in 1 year. Bilateral CANCER RISK ASSESSMENT: This risk assessment is based on patient provided information collected in a risk survey taken at the time of this examination. LIFETIME BREAST CANCER RISK: Pari 8: 2.96% - If greater than or equal to 20%, consider annual mammogram and annual screening Breast MRI or follow up in high risk clinic. Is the patient at elevated risk based on the HBOC criteria? No (Hereditary Breast and Ovarian Cancer) - If Yes, consider genetic counseling and testing with high risk follow up Is the patient at elevated risk based on the Díaz Syndrome criteria? No - If Yes, consider genetic counseling and testing with high risk follow up. Report Dictated on Electronically Signed By: Winsome Sheth MD Electronically Signed Date/Time: 07/06/2024 9:52 AM EDT [facility] Study observation (narrative) [facility] DBT Breast - bilateral scree ningOrdered By: Winsome Sheth on 07-06-2024 [facility] Work Phone: Urine Cultureon 06-30-2024 [facility] Culture exhibits no growth. Normal [facility] Comment on above: Performed By: #### M 100.2200 #### [facility] [address] [place], [address] Absolute lymphocyte countOrd ered By: Katarina Stevens on 01-27-2024 Lymphocytes Auto (Unsp spec) [#/Vol] 2.22 10*3/uL 0.83-4.51 [facility] Automated lymphocyte count a s percentage of total leukocytesOrdered By: Katarina Stevens on 01-27-2024 Lymphocytes/100 WBC Auto (Unsp spec) 28.9 % 19-41 [facility] Basophil percentageOrdered B y: Katarina Stevens on 04-10-2024 Bilirubin [Mass/Vol] 0.90 mg/dL 0.20-1.[address] [facility] Comment on above: For patients on eltr ombopag therapy, use of Dimension [place] TBIL is not recommended. Chloride [Moles/Vol] 110 mmol/L 98-[address] [facility] Cholesterol [Mass/Vol] 169 mg/dL <200 [facility] Comment on above: <200 mg/dL Desirable 200-240 mg/dL Borderline >240 mg/dL High Risk Glucose [Mass/Vol] 128 mg/dL 74-106 [facility] Comment on above: Fasting Glucose resu lt greater than or equal to 126 mg/dL suggests DIABETES MELLITUS per A.D.A. criteria. Potassium [Moles/Vol] 4.0 mmol/L 3.5-5.1 [facility] Protein [Mass/Vol] 7.3 g/dL 6.4-8.2 [facility] Sodium [Moles/Vol] 141 mmol/L 136-145 [facility] Triglyceride [Mass/Vol] 285 mg/dL <199 [facility] Comment on above: The drugs N-Acetylcy steine and Metamizole may falsely depress this assay.Serum Triglycerides Reference Interval Normal <150 mg/dL Borderline high 150 - 199 mg/dL High 200 - 499 mg/dL Very High > or = 500 mg/dL Basophils/100 WBC (Bld) 0.8 % 0-1 [facility] Eosinophils/100 WBC (Bld) 4.0 % 0-5 [facility] Hemoglobin (Bld) [Mass/Vol] 13.4 g/dL 12.0-15.0 [facility] Monocytes/100 WBC (Bld) 6.4 % 0-10 [facility] Neutrophils (Bld) [#/Vol] 4.6 10*3/uL 2.0-7.7 [facility] Neutrophils/100 WBC (Bld) 59.6 % 47-70 [facility] WBC (Bld) [#/Vol] 7.7 10*3/uL 4.4-11.0 [facility] Determination of erythrocyte mean corpuscular volume (MCV)Ordered By: Katarina Stevens on 01-27-2024 MCV (RBC) [Entitic vol] 97.9 fL 81-99 [facility] Erythrocyte distribution wid th ratioOrdered By: Katarina Stevens on 01-27-2024 Erythrocyte distribution width (RBC) [Ratio] 12.4 % 11.6-14.6 [facility] Erythrocyte distribution wid th standard deviationOrdered By: Katarina Stevens on 01-27-2024 Erythrocyte distribution width (RBC) [Entitic vol] 44.5 fL 35.1-43.9 [facility] Hematocrit Auto (Bld) [Volum e fraction]Ordered By: Katarina Stevens on 01-27-2024 Hematocrit (Bld) [Volume fraction] 41.7 % 37-47 [facility] Immature granulocytes/100 WB C Auto (Bld)Ordered By: Katarina Stevens on 01-27-2024 Immature granulocytes/100 WBC (Bld) 0.300 % 0.0-0.9 [facility] Comment on above: IG% - Immature Granu locytes (promyelocytes, myelocytes and metamyelocytes) > 1% indicates that a LEFT SHIFT is Present. Laboratory - Chemistry and C hemistry - challengeOrdered By: Katarina Stevens on 01-27-2024 Albumin/Globulin [Mass ratio] 1.2 {ratio} 0.9-2.4 [facility] ALP [Catalytic activity/Vol] 177 U/L 45-117 [facility] ALT [Catalytic activity/Vol] 21 U/L 13-56 [facility] Cholesterol in HDL [Mass/Vol] 50 mg/dL >40 [facility] Comment on above: The drugs N-Acetylcy steine and Metamizole may falsely depress this assay. Reference Range HDL <40 mg/dL Low HDL Cholesterol HDL >or= 60 mg/dL High HDL Cholesterol Cholesterol in LDL [Mass/Vol] 62 mg/dL 0-130 [facility] CO2 [Moles/Vol] 26.0 mmol/L 21.0-32.0 [facility] Globulin (S) [Mass/Vol] 3.3 g/dL 2.2-4.2 [facility] Urea nitrogen/Creatinine [Mass ratio] 13.7 mg/mg 10-20 [facility] - Hematology and Cell countsOrdered By: Katarina Stevens on 01-27-2024 MCH (RBC) [Entitic mass] 31.5 pg 27.0-32.0 [facility] MCHC (RBC) [Mass/Vol] 32.1 g/dL 32-36 [facility] Nucleated RBC/100 WBC (Bld) [Ratio] 0 % 0-5 [facility] Platelet mean volume (Bld) [Entitic vol] 12.2 fL 6.2-12.0 [facility] Platelets (Bld) [#/Vol] 222 10*3/uL 150-450 [facility] No Panel InformationOrdered By: Katarina Stevens on 01-27-2024 Estimated GFR (MDRD) Amer 45 mL/min >60 [facility] Comment on above: GFR Calc Estimated GFR (MDRD) Non-Af Amer 37 mL/min >60 [facility] Comment on above: Non- GFR Calc VLDL Cholesterol 57 mg/dL 5-40 [facility] Crystal-Rodríguez Virus Capsid Ag IgG Ab 225.0 U/mL 0.0-17.9 [facility] Comment on above: Negative <18.0 Equiv ocal 18.0 - 21.9 Positive >21.9 RBC Auto (Bld) [#/Vol]Ordere d By: Katarina Stevens on 01-27-2024 RBC (Bld) [#/Vol] 4.26 10*6/uL 4.2-5.4 [facility] Serum Crystal Rodríguez virus cap nuha IgM antibody assay (units/volume)Ordered By: Katarina Stevens on 01-27-2024 EBV capsid IgM Qn (S) [arb'U]/mL 0.0-35.9 [facility] Comment on above: Negative <36.0 Equiv ocal 36.0 - 43.9 Positive >43.9 Serum Crystal Rodríguez virus nuc lear IgG antibody assay (units/volume)Ordered By: Katarina Stevens on 01-27-2024 EBV nuclear IgG Qn (S) 216.0 U/mL 0.0-17.9 [facility] Comment on above: Negative <18.0 Equiv ocal 18.0 - 21.9 Positive >21.9 Serum or plasma calcium laz urement (mass/volume)Ordered By: Katarina Stevens on 01-27-2024 Calcium [Mass/Vol] 9.0 mg/dL 8.5-10.1 [facility] Serum or plasma creatinine m easurement (mass/volume)Ordered By: Katarina Stevens on 01-27-2024 Creatinine [Mass/Vol] 1.46 mg/dL 0.55-1.02 [facility] Comment on above: The validity of the calculated GFR & GFRAA in patients over 70 years has not been determined. Clinical correlation is essential. Serum or plasma urea nitroge n measurement (mass/volume)Ordered By: Katarina Stevens on 01-27-2024 Urea nitrogen [Mass/Vol] 20 mg/dL 7-18 [facility] Thin prep Papanicolaou smear with manual screeningOrdered By: Katarina Stevens on 01-27-2024 Thin prep Papanicolaou smear with manual screening 4.0 g/dL 3.2-5.0 [facility] Thin prep Papanicolaou smear with manual screening 18 U/L 15-37 [facility] Thin prep Papanicolaou smear with manual screening 5 5-15 [facility] Thin prep Papanicolaou smear with manual screening Comment . [facility] Comment on above: EBV Interpretation C willistonKey: Antibody Present + Antibody Absent -Interpretation VCA-IgM VCA-IgG EBNA-IgGNo previous infection/ - - -SusceptiblePrimary infection (new + + -or recent)Past Infection +or- + +See comment below* + - -*Results indicate infection with EBV at some time however cannot predict the timing of the infection since antibodies to EBNA usually develop after primary infection or, alternatively, approximately 5-10% of patients with EBV never develop antibodies to EBNA.Performed at: [facility] [employer] [id number] Director: Ilya Hein PhD, Phone: [phone] Culture, urineOrdered By: Do ra Stevens on 10-05-2023 Bacteria identified Cx Nom (U) Culture exhibits no growth. [facility] Bacteria identified Cx Nom (U) Culture exhibits no growth. [facility] - Chemistry and C hemistry - challengeon 10-05-2023 Bilirubin Ql (U) Negative [facility] Glucose Ql (U) Negative [facility] Ketones Ql (U) Negative [facility] pH (U) 5.5 [pH] [facility] Specific gravity (U) [Rel density] 1.010 [facility] Urobilinogen (U) [Mass/Vol] 0.4763681 mg/dL [facility] - Hematology and Cell countson 10-05-2023 Hemoglobin Ql (U) Hemolyzed [facility] - Specimen inform ationon 10-05-2023 Clarity (U) Cloudy [facility] Color (U) YULIYA [facility] - Urinalysison Nitrite Ql (U) Negative [facility] Protein Ql (U) Negative [facility] No Panel Informationon 10-05 Urine Leukocytes Positive [facility] Urine Non-Hemolyzed Blood Trace [facility] Laboratory - Chemistry and C hemistry - challengeon 09-09-2023 Bilirubin Ql (U) Negative [facility] Glucose Ql (U) Negative [facility] Ketones Ql (U) Negative [facility] pH (U) 5.5 [pH] [facility] Specific gravity (U) [Rel density] 1.030 [facility] Urobilinogen (U) [Mass/Vol] 0.0185822 mg/dL [facility] - Hematology and Cell countson 09-09-2023 Hemoglobin Ql (U) Trace [facility] - Specimen inform ationon 09-09-2023 Clarity (U) Turbid [facility] Color (U) Yellow [facility] - Urinalysison Nitrite Ql (U) Negative [facility] Protein Ql (U) Negative [facility] No Panel Informationon 09-09 Urine Leukocytes Negatve [facility] Urine Non-Hemolyzed Blood [facility] Culture, urineOrdered By: Do ra Stevens on 09-08-2023 Bacteria identified Cx Nom (U) Positive [facility] Nuclear EXERCISE stress test with myocardial perfusionOrdered By: Erin Saunders on 08-11-2023 Angina Index 0 [facility] Work Phone: Baseline Diastolic BP 88 mmHg [facility] Work Phone: Baseline HR 75 bpm [facility] Work Phone: Baseline Systolic BP 148 mmHg [facility] Work Phone: Cosme Treadmill Score 5 [facility] Work Phone: Exercise Duration Seconds 40 sec [facility] Work Phone: Exercise Duration Time 4 min [facility] Work Phone: Nuc Stress Diastolic Volume 55 mL [facility] Work Phone: Nuc Stress EF 75 % [facility] Work Phone: Nuc Stress Systolic Volume 14 mL [facility] Work Phone: Oxygen saturation in Blood 97 % [facility] Work Phone: Recovery Stage 1 Duration 1 min:sec [facility] Work Phone: Recovery Stage 1 HR 130 bpm [facility] Work Phone: Recovery Stage 2 BP 174/97 mmHg [facility] Work Phone: Recovery Stage 2 Duration 2 min:sec [facility] Work Phone: Recovery Stage 2 HR 107 bpm [facility] Work Phone: Recovery Stage 3 BP 160/85 mmHg [facility] Work Phone: Recovery Stage 3 Duration 2 min:sec [facility] Work Phone: Recovery Stage 3 HR 93 bpm [facility] Work Phone: Recovery Stage 4 BP 155/80 mmHg [facility] Work Phone: Recovery Stage 4 Duration 2 min:sec [facility] Work Phone: Recovery Stage 4 HR 85 bpm [facility] Work Phone: Stress Diastolic BP 70 mmHg [facility] Work Phone: Stress Estimated Workload 6.6 METS [facility] Work Phone: Stress Peak HR 144 bpm [facility] Work Phone: Stress Percent HR Achieved 101 % [facility] Work Phone: Stress Rate Pressure Product 58947 bpm*mmHg [facility] Work Phone: Stress ST Depression 0 mm [facility] Work Phone: Stress Stage 1 BP 152/80 mmHg [facility] Work Phone: Stress Stage 1 Duration 3 min:sec [facility] Phone: Stress Stage 1 HR 115 bpm [facility] Phone: Stress Stage 2 BP 162/70 mmHg [facility] Phone: Stress Stage 2 Duration 1 min 40 sec min:sec [facility] Phone: Stress Stage 2 HR 144 bpm [facility] Phone: Stress Systolic BP 162 mmHg [facility] Phone: Stress Target HR 143 bpm [facility] Phone: TID 1.03 [facility] Phone: Nuclear EXERCISE stress test with myocardial perfusionon 08-11-2023 Stress Combined Conclusion: Normal treadmill myocardial perfusion study at 101%% PHR. Perfusion Comments: There is no evidence of inducible ischemia. Stress Function: Left ventricular function post-stress is normal. Post-stress ejection fraction is 75%. No regional wall motion abnormalities. Stress ECG: Conclusion: The stress test is normal. Stress Test: A Arpit protocol stress test was performed. Overall, the patient's exercise capacity was below average for their age. The patient reached stage 2 of the protocol after exercising for 4 min and 40 sec. The patient experienced no angina during the test. Hemodynamics are adequate for diagnosis. Blood pressure demonstrated a normal response and heart rate demonstrated a normal response to stress. The patient's heart rate recovery was normal. The patient reported dyspnea, fatigue, muscle fatigue and no chest pain during the stress test. Resting ECG The ECG shows normal sinus rhythm. Stress Findings A Arpit protocol stress test was performed. Overall, the patient's exercise capacity was below average for their age. The patient reached stage 2 of the protocol after exercising for 4 min and 40 sec. The patient experienced no angina during the test. Silvana rating of perceived exertion was 17. Hemodynamics are adequate for diagnosis. Blood pressure demonstrated a normal response and heart rate demonstrated a normal response to stress. The patient's heart rate recovery was normal. The patient reported no symptoms prior to the stress test. The patient reported dyspnea, fatigue, muscle fatigue and no chest pain during the stress test. Symptoms began during stress and ended during recovery. The test was stopped because the patient experienced fatigue and dyspnea. Stress ECG Non-significant (<1mm) upsloping ST depression was noted. Conclusion: The stress test is normal. Nuclear Study Quality Nuclear imaging technique: single photon emission computed tomography (SPECT). Exercise was used as the stressing method and agent. One day myocardial perfusion study (08/11/2023). I used motion correction on the stress images. Nuclear imaging was performed in the supine position. Motion correction was used. There are mild motion artifacts. Perfusion Comments LV perfusion is probably normal at rest. LV perfusion is probably normal with stress. There is no evidence of inducible ischemia. Perfusion Defect Conclusion TID ratio is 1.03. Stress Function Comments Left ventricular function post-stress is normal. Post-stress ejection fraction is 75%. No regional wall motion abnormalities. Stress end diastolic volume: 55 mL. Stress end systolic volume: 14 mL. Stress Combined Conclusion Normal treadmill myocardial perfusion study at 101%% PHR. CV EPIPHANY ECG 12 lead - CLINIC PERFORM EDon 07-31-2023 Sinus Rhythm -Nonspecific T-abnormality. Low voltage -possible pulmonary disease. ABNORMAL [employer] Alkaline phosphatase, isoenz ymeson 06-07-2023 ALP [Catalytic activity/Vol] 141 U/L 37 - 153 U/L [employer] ALP Bone [Catalytic fraction] 54 % 28 - 66 % [employer] ALP Intest [Catalytic fraction] 7 % 1 - 24 % [employer] ALP Isos Jassi [Interp] NO RESULT [facility] Comment on above: Test Performed by Angie Augustine, [facility], [address] [place] [address] Chris Montilla M.D., Ph.D., Director of Laboratories , CLIA [id number] ALP Liver [Catalytic fraction] 39 % 25 - 69 % [employer] ALP Macrohepatic [Catalytic fraction] 0 % NINF - 0 % [employer] ALP Plac [Catalytic fraction] 0 % NINF - 0 % [employer] ALP [Catalytic activity/Vol] on 05-20-2023 Interpretation and review of laboratory results Abnormal [employer] Alkaline phosphataseon 05-20 ALP [Catalytic activity/Vol] 158 U/L High 38 - 126 U/L [employer] US Abdomen limitedon 023 The etiology of the symptoms is not certain. Status post cholecystectomy. Report Dictated on Electronically Signed By: Markell Medina MD Electronically Signed Date/Time: 05/20/2023 12:55 PM EDT [facility] Patient Name: MILENA MCGHEE : 1945 Exam Date/Time: 05/20/2023 09:44 Procedure: US ABDOMEN LIMITED Ordering Provider: LARA RICHARD Reason For Exam: R74.0, R74.08 Indication: Right upper quadrant pain. FINDINGS: The liver is unremarkable. Gallbladder absent. Common duct normal 6.1 mm. Pancreas right kidney aorta IVC unremarkable as seen. The right kidney measures 9.6 cm. [facility] Markell Medina MD - 05/20/2023 Patient Name: MILENA MCGHEE : 1945 Exam Date/Time: 05/20/2023 09:44 Procedure: US ABDOMEN LIMITED Ordering Provider: LARA RICHARD Reason For Exam: R74.0, R74.08 Indication: Right upper quadrant pain. FINDINGS: The liver is unremarkable. Gallbladder absent. Common duct normal 6.1 mm. Pancreas right kidney aorta IVC unremarkable as seen. The right kidney measures 9.6 cm. IMPRESSION: The etiology of the symptoms is not certain. Status post cholecystectomy. Report Dictated on Electronically Signed By: Markell Medina MD Electronically Signed Date/Time: 05/20/2023 12:55 PM EDT [employer] Radiology Study observation (narrative) [employer] US Abdomen limitedOrdered By : Markell Medina on 05-20-2023 [employer] Work Phone: Absolute lymphocyte countOrd ered By: Katarina Stevens on 04-16-2023 Lymphocytes Auto (Unsp spec) [#/Vol] 2.43 10*3/uL 0.83-4.51 [facility] Basophil percentageOrdered B y: Katarina Stevens on 04-16-2023 Basophils/100 WBC (Bld) 0.9 % 0-1 [facility] Bilirubin [Mass/Vol] 0.60 mg/dL 0.20-1.[address] [facility] Comment on above: For patients on eltr ombopag therapy, use of Dimension [place] TBIL is not recommended. Chloride [Moles/Vol] 106 mmol/L 98-[address] [facility] Eosinophils/100 WBC (Bld) 4.2 % 0-5 [facility] Glucose [Mass/Vol] 123 mg/dL 74-106 [facility] Comment on above: Fasting Glucose resu lt from 100 to 125 mg/dL suggests IMPAIRED HOMEOSTASIS per A.D.A. criteria. Neutrophils (Bld) [#/Vol] 4.4 10*3/uL 2.0-7.7 [facility] Neutrophils/100 WBC (Bld) 55.9 % 47-70 [facility] Potassium [Moles/Vol] 4.1 mmol/L 3.5-5.1 [facility] Protein [Mass/Vol] 7.4 g/dL 6.4-8.2 [facility] Sodium [Moles/Vol] 141 mmol/L 136-145 [facility] WBC (Bld) [#/Vol] 7.9 10*3/uL 4.4-11.0 [facility] Blood erythrocytes count (nu mber/volume)Ordered By: Katarina Stevens on 04-16-2023 RBC (Bld) [#/Vol] 4.27 10*6/uL 4.2-5.4 [facility] Blood hemoglobin measurement (mass/volume)Ordered By: Katarina Stevens on 04-16-2023 Hemoglobin (Bld) [Mass/Vol] 13.6 g/dL 12.0-15.0 [facility] Blood lymphocytes/100 leukoc ytesOrdered By: Katarina Stevens on 04-16-2023 Lymphocytes/100 WBC (Bld) 30.8 % 19-41 [facility] Blood monocytes/100 leukocyt esOrdered By: Katarina Stevens on 04-16-2023 Monocytes/100 WBC (Bld) 7.9 % 0-10 [facility] Blood platelet mean volumeOr dered By: Katarina Stevens on 04-16-2023 Platelet mean volume (Bld) [Entitic vol] 11.4 fL 6.2-12.0 [facility] Culture, urineOrdered By: Do ra Stevens on 04-16-2023 Bacteria identified Cx Nom (U) Mixed Gram Pos & Gram Neg Org [facility] Determination of erythrocyte mean corpuscular volume (MCV)Ordered By: Katarina Stevens on 04-16-2023 MCV (RBC) [Entitic vol] 97.0 fL 81-99 [facility] Hematocrit Auto (Bld) [Volum e fraction]Ordered By: Katarina Stevens on 04-16-2023 Hematocrit (Bld) [Volume fraction] 41.4 % 37-47 [facility] Laboratory - Chemistry and C hemistry - challengeon 04-16-2023 Bilirubin Ql (U) Negative [facility] Glucose Ql (U) Negative [facility] Ketones Ql (U) Negative [facility] pH (U) 5.5 [pH] [facility] Specific gravity (U) [Rel density] 1.025 [facility] Urobilinogen (U) [Mass/Vol] 0.8615714 mg/dL [facility] Laboratory - Chemistry and C hemistry - challengeOrdered By: Katarina Stevens on 04-16-2023 ALP [Catalytic activity/Vol] 198 U/L 45-117 [facility] ALT [Catalytic activity/Vol] 19 U/L 13-56 [facility] CO2 [Moles/Vol] 27.0 mmol/L 21.0-32.0 [facility] Globulin (S) [Mass/Vol] 3.6 g/dL 2.2-4.2 [facility] Urea nitrogen/Creatinine [Mass ratio] 15.0 mg/mg 10-20 [facility] Laboratory - Hematology and Cell countson 04-16-2023 Hemoglobin Ql (U) Negative [facility] - Hematology and Cell countsOrdered By: Katarina Stevens on 04-16-2023 Erythrocyte distribution width (RBC) [Entitic vol] 43.3 fL 35.1-43.9 [facility] Erythrocyte distribution width (RBC) [Ratio] 12.1 % 11.6-14.6 [facility] Immature granulocytes/100 WBC (Bld) 0.300 % 0.0-0.9 [facility] Comment on above: IG% - Immature Granu locytes (promyelocytes, myelocytes and metamyelocytes) > 1% indicates that a LEFT SHIFT is Present. MCH (RBC) [Entitic mass] 31.9 pg 27.0-32.0 [facility] Nucleated RBC/100 WBC (Bld) [Ratio] 0 % 0-5 [facility] Laboratory - Specimen inform ationon 04-16-2023 Clarity (U) Clear [facility] Color (U) YELLOW [facility] Laboratory - Urinalysison Nitrite Ql (U) Negative [facility] Protein Ql (U) Negative [facility] MCHC Auto (RBC) [Mass/Vol]Or dered By: Katarina Stevens on 04-16-2023 MCHC (RBC) [Mass/Vol] 32.9 g/dL 32-36 [facility] No Panel Informationon 04-16 Urine Leukocytes Negatve [facility] Urine Non-Hemolyzed Blood [facility] No Panel InformationOrdered By: Katarina Stevens on 04-16-2023 Estimated GFR (MDRD) Amer 50 mL/min >60 [facility] Comment on above: GFR Calc Estimated GFR (MDRD) Non-Af Amer 41 mL/min >60 [facility] Comment on above: Non- GFR Calc Platelets bldOrdered By: Kennedy Stevens on 04-16-2023 Platelets (Bld) [#/Vol] 226 10*3/uL 150-450 [facility] Serum or plasma albumin laz urement (mass/volume)Ordered By: Katarina Stevens on 04-16-2023 Albumin [Mass/Vol] 3.8 g/dL 3.2-5.0 [facility] Serum or plasma albumin/glob ulin mass ratioOrdered By: Katarina Stevens on 04-16-2023 Albumin/Globulin [Mass ratio] 1.1 {ratio} 0.9-2.4 [facility] Serum or plasma calcium laz urement (mass/volume)Ordered By: Katarina Stevens on 04-16-2023 Calcium [Mass/Vol] 9.3 mg/dL 8.5-10.1 [facility] Serum or plasma creatinine m easurement (mass/volume)Ordered By: Katarina Stevens on 04-16-2023 Creatinine [Mass/Vol] 1.33 mg/dL 0.55-1.02 [facility] Comment on above: The validity of the calculated GFR & GFRAA in patients over 70 years has not been determined. Clinical correlation is essential. Serum or plasma urea nitroge n measurement (mass/volume)Ordered By: Katarina Stevens on 04-16-2023 Urea nitrogen [Mass/Vol] 20 mg/dL 7-18 [facility] Thin prep Papanicolaou smear with manual screeningOrdered By: Katarina Stevens on 04-16-2023 Thin prep Papanicolaou smear with manual screening 16 U/L 15-37 [facility] Thin prep Papanicolaou smear with manual screening 8 5-15 [facility] Absolute lymphocyte countOrd ered By: Katarina Stevens on 03-30-2023 Lymphocytes Auto (Unsp spec) [#/Vol] 2.17 10*3/uL 0.83-4.51 [facility] Basophil percentageOrdered B y: Katarina Stevens on 03-30-2023 Basophils/100 WBC (Bld) 0.7 % 0-1 [facility] Bilirubin [Mass/Vol] 0.70 mg/dL 0.20-1.[address] [facility] Comment on above: For patients on eltr ombopag therapy, use of Dimension [place] TBIL is not recommended. Chloride [Moles/Vol] 107 mmol/L 98-[address] [facility] Eosinophils/100 WBC (Bld) 4.1 % 0-5 [facility] Glucose [Mass/Vol] 109 mg/dL 74-106 [facility] Comment on above: Fasting Glucose resu lt from 100 to 125 mg/dL suggests IMPAIRED HOMEOSTASIS per A.D.A. criteria. Neutrophils (Bld) [#/Vol] 4.2 10*3/uL 2.0-7.7 [facility] Neutrophils/100 WBC (Bld) 56.2 % 47-70 [facility] Potassium [Moles/Vol] 4.2 mmol/L 3.5-5.1 [facility] Protein [Mass/Vol] 7.3 g/dL 6.4-8.2 [facility] Sodium [Moles/Vol] 140 mmol/L 136-145 [facility] WBC (Bld) [#/Vol] 7.6 10*3/uL 4.4-11.0 [facility] Blood erythrocytes count (nu mber/volume)Ordered By: Katarina Stevens on 03-30-2023 RBC (Bld) [#/Vol] 4.05 10*6/uL 4.2-5.4 [facility] Blood hemoglobin measurement (mass/volume)Ordered By: Katarina Stevens on 03-30-2023 Hemoglobin (Bld) [Mass/Vol] 12.9 g/dL 12.0-15.0 [facility] Blood lymphocytes/100 leukoc ytesOrdered By: Katarina Stevens on 03-30-2023 Lymphocytes/100 WBC (Bld) 28.7 % 19-41 [facility] Blood monocytes/100 leukocyt esOrdered By: Katarina Stevens on 03-30-2023 Monocytes/100 WBC (Bld) 9.9 % 0-10 [facility] Blood platelet mean volumeOr dered By: Katarina Stevens on 03-30-2023 Platelet mean volume (Bld) [Entitic vol] 11.7 fL 6.2-12.0 [facility] Determination of erythrocyte mean corpuscular volume (MCV)Ordered By: Katarina Stevens on 03-30-2023 MCV (RBC) [Entitic vol] 98.8 fL 81-99 [facility] Hematocrit Auto (Bld) [Volum e fraction]Ordered By: Katarina Stevens on 03-30-2023 Hematocrit (Bld) [Volume fraction] 40.0 % 37-47 [facility] Laboratory - Chemistry and C hemistry - challengeOrdered By: Katarina Stevens on 03-30-2023 ALP [Catalytic activity/Vol] 191 U/L 45-117 [facility] ALT [Catalytic activity/Vol] 15 U/L 13-56 [facility] CO2 [Moles/Vol] 27.0 mmol/L 21.0-32.0 [facility] Globulin (S) [Mass/Vol] 3.6 g/dL 2.2-4.2 [facility] Urea nitrogen/Creatinine [Mass ratio] 17.3 mg/mg 10-20 [facility] Laboratory - Hematology and Cell countsOrdered By: Katarina Stevens on 03-30-2023 Erythrocyte distribution width (RBC) [Entitic vol] 43.7 fL 35.1-43.9 [facility] Erythrocyte distribution width (RBC) [Ratio] 11.9 % 11.6-14.6 [facility] Immature granulocytes/100 WBC (Bld) 0.400 % 0.0-0.9 [facility] Comment on above: IG% - Immature Granu locytes (promyelocytes, myelocytes and metamyelocytes) > 1% indicates that a LEFT SHIFT is Present. MCH (RBC) [Entitic mass] 31.9 pg 27.0-32.0 [facility] Nucleated RBC/100 WBC (Bld) [Ratio] 0 % 0-5 [facility] MCHC Auto (RBC) [Mass/Vol]Or dered By: Katarina Stevens on 03-30-2023 MCHC (RBC) [Mass/Vol] 32.3 g/dL 32-36 [facility] No Panel InformationOrdered By: Katarina Stevens on 03-30-2023 Estimated GFR (MDRD) Amer 62 mL/min >60 [facility] Comment on above: GFR Calc Estimated GFR (MDRD) Non-Af Amer 51 mL/min >60 [facility] Comment on above: Non- GFR Calc Parathyroid Hormone (Intact) 51.4 pg/mL 18.4-80.1 [facility] Vitamin D 25-Hydroxy 38.0 ng/mL [facility] Comment on above: Vitamin D 25(OH) Sta tus Range Deficiency <20 ng/mL (50nmol/L) Insufficiency 20 - 30 ng/mL (50 - 75 nmol/L) Sufficiency 30 - 100 ng/mL (75 - 250 nmol/L) Toxicity >100 ng/mL (>250 nmol/L) Platelets bldOrdered By: Kennedy Stevens on 03-30-2023 Platelets (Bld) [#/Vol] 205 10*3/uL 150-450 [facility] Serum or plasma albumin laz urement (mass/volume)Ordered By: Katarina Stevens on 03-30-2023 Albumin [Mass/Vol] 3.7 g/dL 3.2-5.0 [facility] Serum or plasma albumin/glob ulin mass ratioOrdered By: Katarina Stevens on 03-30-2023 Albumin/Globulin [Mass ratio] 1.0 {ratio} 0.9-2.4 [facility] Serum or plasma calcium laz urement (mass/volume)Ordered By: Katarina Stevens on 03-30-2023 Calcium [Mass/Vol] 9.4 mg/dL 8.5-10.1 [facility] Serum or plasma creatinine m easurement (mass/volume)Ordered By: Katarina Stevens on 03-30-2023 Creatinine [Mass/Vol] 1.10 mg/dL 0.55-1.02 [facility] Comment on above: The validity of the calculated GFR & GFRAA in patients over 70 years has not been determined. Clinical correlation is essential. Serum or plasma urea nitroge n measurement (mass/volume)Ordered By: Katarina Stevens on 03-30-2023 Urea nitrogen [Mass/Vol] 19 mg/dL 7-18 [facility] Thin prep Papanicolaou smear with manual screeningOrdered By: Katarina Stevens on 03-30-2023 Thin prep Papanicolaou smear with manual screening 12 U/L 15-37 [facility] Thin prep Papanicolaou smear with manual screening 6 5-15 [facility] Thin prep Papanicolaou smear with manual screening 6.8 mg/L NO RANGE EST. [facility] Urine creatinine measurement (mass/volume)Ordered By: Katarina Stevens on 03-30-2023 Creatinine (U) [Mass/Vol] 77.00 mg/dL NO RANGE EST. [facility] Urine protein measurement (m ass/volume)Ordered By: Katarina Stevens on 03-30-2023 Protein (U) [Mass/Vol] 7.2 mg/dL 0.0-11.8 [facility] Urine protein/creatinine mas s ratioOrdered By: Katarina Stevens on 03-30-2023 Protein/Creatinine (U) [Mass ratio] 94 mg/g CRE 0-200 [facility] Absolute lymphocyte countOrd ered By: Katarina Stevens on 02-25-2023 Lymphocytes Auto (Unsp spec) [#/Vol] 1.64 10*3/uL 0.83-4.51 [facility] Basophil percentageOrdered B y: Katarina Stevens on 02-25-2023 Basophils/100 WBC (Bld) 0.6 % 0-1 [facility] Bilirubin [Mass/Vol] 0.60 mg/dL 0.20-1.[address] [facility] Comment on above: For patients on eltr ombopag therapy, use of Dimension [place] TBIL is not recommended. Chloride [Moles/Vol] 107 mmol/L 98-[address] [facility] Eosinophils/100 WBC (Bld) 4.0 % 0-5 [facility] Glucose [Mass/Vol] 90 mg/dL 74-106 [facility] Neutrophils (Bld) [#/Vol] 4.4 10*3/uL 2.0-7.7 [facility] Neutrophils/100 WBC (Bld) 63.1 % 47-70 [facility] Potassium [Moles/Vol] 4.0 mmol/L 3.5-5.1 [facility] Protein [Mass/Vol] 7.2 g/dL 6.4-8.2 [facility] Sodium [Moles/Vol] 143 mmol/L 136-145 [facility] WBC (Bld) [#/Vol] 7.0 10*3/uL 4.4-11.0 [facility] Blood erythrocytes count (nu mber/volume)Ordered By: Katarina Stevens on 02-25-2023 RBC (Bld) [#/Vol] 4.18 10*6/uL 4.2-5.4 [facility] Blood hemoglobin measurement (mass/volume)Ordered By: Katarina Stevens on 02-25-2023 Hemoglobin (Bld) [Mass/Vol] 13.4 g/dL 12.0-15.0 [facility] Blood lymphocytes/100 leukoc ytesOrdered By: Katarina Stevens on 02-25-2023 Lymphocytes/100 WBC (Bld) 23.4 % 19-41 [facility] Blood monocytes/100 leukocyt esOrdered By: Katarina Stevens on 02-25-2023 Monocytes/100 WBC (Bld) 8.6 % 0-10 [facility] Blood platelet mean volumeOr dered By: Katarina Stevens on 02-25-2023 Platelet mean volume (Bld) [Entitic vol] 11.3 fL 6.2-12.0 [facility] Determination of erythrocyte mean corpuscular volume (MCV)Ordered By: Katarina Stevens on 02-25-2023 MCV (RBC) [Entitic vol] 98.6 fL 81-99 [facility] Hematocrit Auto (Bld) [Volum e fraction]Ordered By: Kaatrina Stevens on 02-25-2023 Hematocrit (Bld) [Volume fraction] 41.2 % 37-47 [facility] Laboratory - Chemistry and C hemistry - challengeOrdered By: Katarina Stevens on 02-25-2023 ALP [Catalytic activity/Vol] 131 U/L 45-117 [facility] ALT [Catalytic activity/Vol] 25 U/L 13-56 [facility] CO2 [Moles/Vol] 28.0 mmol/L 21.0-32.0 [facility] Globulin (S) [Mass/Vol] 3.5 g/dL 2.2-4.2 [facility] Urea nitrogen/Creatinine [Mass ratio] 12.5 mg/mg 10-20 [facility] Laboratory - Hematology and Cell countsOrdered By: Katarina Stevens on 02-25-2023 Erythrocyte distribution width (RBC) [Entitic vol] 44.4 fL 35.1-43.9 [facility] Erythrocyte distribution width (RBC) [Ratio] 12.3 % 11.6-14.6 [facility] Immature granulocytes/100 WBC (Bld) 0.300 % 0.0-0.9 [facility] Comment on above: IG% - Immature Granu locytes (promyelocytes, myelocytes and metamyelocytes) > 1% indicates that a LEFT SHIFT is Present. MCH (RBC) [Entitic mass] 32.1 pg 27.0-32.0 [facility] Nucleated RBC/100 WBC (Bld) [Ratio] 0 % 0-5 [facility] MCHC Auto (RBC) [Mass/Vol]Or dered By: Katarina Stevens on 02-25-2023 MCHC (RBC) [Mass/Vol] 32.5 g/dL 32-36 [facility] No Panel InformationOrdered By: Katarina Stevens on 02-25-2023 Estimated GFR (MDRD) Amer 56 mL/min >60 [facility] Comment on above: GFR Calc Estimated GFR (MDRD) Non-Af Amer 46 mL/min >60 [facility] Comment on above: Non- GFR Calc Platelets bldOrdered By: Kennedy Stevens on 02-25-2023 Platelets (Bld) [#/Vol] 213 10*3/uL 150-450 [facility] Serum or plasma albumin laz urement (mass/volume)Ordered By: Katarina Stevens on 02-25-2023 Albumin [Mass/Vol] 3.7 g/dL 3.2-5.0 [facility] Serum or plasma albumin/glob ulin mass ratioOrdered By: Katarina Stevens on 02-25-2023 Albumin/Globulin [Mass ratio] 1.1 {ratio} 0.9-2.4 [facility] Serum or plasma calcitriol m easurement (mass/volume)Ordered By: Katarina Stevens on 02-25-2023 1,25-dihydroxyvitamin D3 [Mass/Vol] 43.8 pg/mL 24.8-81.5 [facility] Comment on above: Performed at: [facility] [id number] Director: Gregg Amezcua MD, Phone: [phone] Serum or plasma calcium laz urement (mass/volume)Ordered By: Katarina Stevens on 02-25-2023 Calcium [Mass/Vol] 9.2 mg/dL 8.5-10.1 [facility] Serum or plasma creatinine m easurement (mass/volume)Ordered By: Katarina Stevens on 02-25-2023 Creatinine [Mass/Vol] 1.20 mg/dL 0.55-1.02 [facility] Comment on above: The validity of the calculated GFR & GFRAA in patients over 70 years has not been determined. Clinical correlation is essential. Serum or plasma urea nitroge n measurement (mass/volume)Ordered By: Katarina Stevens on 02-25-2023 Urea nitrogen [Mass/Vol] 15 mg/dL 7-18 [facility] Thin prep Papanicolaou smear with manual screeningOrdered By: Katarina Stevens on 05-10-2023 Thin prep Papanicolaou smear with manual screening 14 U/L 15-37 [facility] Thin prep Papanicolaou smear with manual screening 8 5-15 [facility] Absolute lymphocyte countOrd ered By: Katarina Stevens on 02-02-2023 Lymphocytes Auto (Unsp spec) [#/Vol] 2.14 10*3/uL 0.83-4.51 [facility] Basophil percentageOrdered B y: Katarina Stevens on 02-02-2023 Basophils/100 WBC (Bld) 0.6 % 0-1 [facility] Bilirubin [Mass/Vol] 0.50 mg/dL 0.20-1.[address] [facility] Comment on above: For patients on eltr ombopag therapy, use of Dimension [place] TBIL is not recommended. Chloride [Moles/Vol] 111 mmol/L 98-[address] [facility] Eosinophils/100 WBC (Bld) 4.1 % 0-5 [facility] Glucose [Mass/Vol] 114 mg/dL 74-106 [facility] Comment on above: Fasting Glucose resu lt from 100 to 125 mg/dL suggests IMPAIRED HOMEOSTASIS per A.D.A. criteria. Neutrophils (Bld) [#/Vol] 3.4 10*3/uL 2.0-7.7 [facility] Neutrophils/100 WBC (Bld) 53.6 % 47-70 [facility] Potassium [Moles/Vol] 4.4 mmol/L 3.5-5.1 [facility] Protein [Mass/Vol] 6.9 g/dL 6.4-8.2 [facility] Sodium [Moles/Vol] 141 mmol/L 136-145 [facility] WBC (Bld) [#/Vol] 6.4 10*3/uL 4.4-11.0 [facility] Blood erythrocytes count (nu mber/volume)Ordered By: Katarina Stevens on 02-02-2023 RBC (Bld) [#/Vol] 4.17 10*6/uL 4.2-5.4 [facility] Blood hemoglobin measurement (mass/volume)Ordered By: Katarina Stevens on 02-02-2023 Hemoglobin (Bld) [Mass/Vol] 13.2 g/dL 12.0-15.0 [facility] Blood lymphocytes/100 leukoc ytesOrdered By: Katarina Stevens on 02-02-2023 Lymphocytes/100 WBC (Bld) 33.4 % 19-41 [facility] Blood monocytes/100 leukocyt esOrdered By: Katarina Stevens on 02-02-2023 Monocytes/100 WBC (Bld) 8.1 % 0-10 [facility] Blood platelet mean volumeOr dered By: Katarina Stevens on 02-02-2023 Platelet mean volume (Bld) [Entitic vol] 12.0 fL 6.2-12.0 [facility] Determination of erythrocyte mean corpuscular volume (MCV)Ordered By: Katarina Stevens on 02-02-2023 MCV (RBC) [Entitic vol] 99.8 fL 81-99 [facility] Hematocrit Auto (Bld) [Volum e fraction]Ordered By: Katarina Stevens on 02-02-2023 Hematocrit (Bld) [Volume fraction] 41.6 % 37-47 [facility] Laboratory - Chemistry and C hemistry - challengeOrdered By: Katarina Stevens on 02-02-2023 ALP [Catalytic activity/Vol] 118 U/L 45-117 [facility] ALT [Catalytic activity/Vol] 25 U/L 13-56 [facility] CO2 [Moles/Vol] 29.0 mmol/L 21.0-32.0 [facility] Globulin (S) [Mass/Vol] 3.2 g/dL 2.2-4.2 [facility] Urea nitrogen/Creatinine [Mass ratio] 14.3 mg/mg 10-20 [facility] Laboratory - Hematology and Cell countsOrdered By: Katarina Stevens on 02-02-2023 Erythrocyte distribution width (RBC) [Entitic vol] 45.2 fL 35.1-43.9 [facility] Erythrocyte distribution width (RBC) [Ratio] 12.3 % 11.6-14.6 [facility] Immature granulocytes/100 WBC (Bld) 0.200 % 0.0-0.9 [facility] Comment on above: IG% - Immature Granu locytes (promyelocytes, myelocytes and metamyelocytes) > 1% indicates that a LEFT SHIFT is Present. MCH (RBC) [Entitic mass] 31.7 pg 27.0-32.0 [facility] Nucleated RBC/100 WBC (Bld) [Ratio] 0 % [facility] [Mass/Vol]Or dered By: Katarina Stevens on 02-02-2023 MCHC (RBC) [Mass/Vol] 31.7 g/dL 32-36 [facility] No Panel InformationOrdered By: Katarina Stevens on 02-02-2023 C-Reactive Protein High Sensitivity 0.79 mg/L <3.00 [facility] Comment on above: Low Relative Risk of CVD <1.0 mg/L Average Relative Risk of CVD 1.0 - 3.0 mg/L High Relative Risk of CVD >3.0 mg/L Estimated GFR (MDRD) Amer 47 mL/min >60 [facility] Comment on above: GFR Calc Estimated GFR (MDRD) Non-Af Amer 39 mL/min >60 [facility] Comment on above: Non- GFR Calc Thyroid Stimulating Hormone (TSH) 1.76 uIU/mL 0.358-3.74 [facility] Troponin I High Sensitivity 4 pg/mL 3.0-54.0 [facility] Comment on above: Please Note: New Katerina t Units and Gender Specific Reference Ranges. For more information see Policy Stat Procedure [place] High Sensitivity Troponin (TNIH) and attachments. Platelets bldOrdered By: Kennedy Stevens on 02-02-2023 Platelets (Bld) [#/Vol] 192 10*3/uL 150-450 [facility] Serum Crystal Rodríguez virus cap nuha IgG antibody assay (units/volume)Ordered By: Katarina Stevens on 02-02-2023 EBV capsid IgG Qn (S) 222.0 [arb'U]/mL 0.0-17.9 [facility] Comment on above: Negative <18.0 Equiv ocal 18.0 - 21.9 Positive >21.9 Serum Crystal Rodríguez virus cap nuha IgM antibody assay (units/volume)Ordered By: Katarina Stevens on 02-02-2023 EBV capsid IgM Qn (S) [arb'U]/mL 0.0-35.9 [facility] Comment on above: Negative <36.0 Equiv ocal 36.0 - 43.9 Positive >43.9 Serum Crystal Rodríguez virus nuc lear IgG antibody assay (units/volume)Ordered By: Katarina Stevens on 02-02-2023 EBV nuclear IgG Qn (S) 151.0 U/mL 0.0-17.9 [facility] Comment on above: Negative <18.0 Equiv ocal 18.0 - 21.9 Positive >21.9 Serum or plasma albumin laz urement (mass/volume)Ordered By: Katarina Stevens on 02-02-2023 Albumin [Mass/Vol] 3.7 g/dL 3.2-5.0 [facility] Serum or plasma albumin/glob ulin mass ratioOrdered By: Katarinatim Stevens on 02-02-2023 Albumin/Globulin [Mass ratio] 1.2 {ratio} 0.9-2.4 [facility] Serum or plasma calcium laz urement (mass/volume)Ordered By: Katarina Stevens on 02-02-2023 Calcium [Mass/Vol] 9.4 mg/dL 8.5-10.1 [facility] Serum or plasma creatinine m easurement (mass/volume)Ordered By: Katarina Stevens on 02-02-2023 Creatinine [Mass/Vol] 1.40 mg/dL 0.55-1.02 [facility] Comment on above: The validity of the calculated GFR & GFRAA in patients over 70 years has not been determined. Clinical correlation is essential. Serum or plasma cytomegalovi maria esther (CMV) IgM antibody assay (units/volume)Ordered By: Katarina Stevens on 02-02-2023 CMV IgM Qn < 30.0 AU/mL 0.0-29.9 [facility] Comment on above: Negative <30.0 Equiv ocal 30.0 - 34.9 Positive >34.9A positive result is generally indicative of acuteinfection, reactivation or persistent IgM production. Serum or plasma urea nitroge n measurement (mass/volume)Ordered By: Katarina Stevens on 02-02-2023 Urea nitrogen [Mass/Vol] 20 mg/dL 7-18 [facility] Serum or plasma uric acid me asurement (mass/volume)Ordered By: Katarina Stevens on 02-02-2023 Urate [Mass/Vol] 6.5 mg/dL 2.6-6.0 [facility] Comment on above: The drugs N-Acetylcy steine and Metamizole may falsely depress this assay. Thin prep Papanicolaou smear with manual screeningOrdered By: Katarina Stevens on 02-02-2023 Thin prep Papanicolaou smear with manual screening 16 U/L 15-37 [facility] Thin prep Papanicolaou smear with manual screening 1 5-15 [facility] Thin prep Papanicolaou smear with manual screening Comment . [facility] Comment on above: EBV Interpretation C hartKey: Antibody Present + Antibody Absent -Interpretation VCA-IgM VCA-IgG EBNA-IgGNo previous infection/ - - -SusceptiblePrimary infection (new + + -or recent)Past Infection +or- + +See comment below* + - -*Results indicate infection with EBV at some time however cannot predict the timing of the infection since antibodies to EBNA usually develop after primary infection or, alternatively, approximately 5-10% of patients with EBV never develop antibodies to EBNA. Thin prep Papanicolaou smear with manual screening Negative Negative [facility] Comment on above: Lyme antibodies not detected. Reflex testing is notindicated.No laboratory evidence of infection with B. burgdorferi(Lyme disease). Negative results may occur in patientsrecently infected (less than or equal to 14 days) with B.burgdorferi. If recent infection is suspected, repeattesting on a new sample collected in 7 to 14 days isrecommended.Performed at: [address] [id number] Director: Ilya Hein PhD, Phone: [phone] XR Shoulder - left 2 Viewson 11-12-2022 1. No acute osseous findings in the left shoulder. Report Dictated on Electronically Signed By: Mike Chandra Electronically Signed Date/Time: 11/12/2022 4:37 PM [facility] [employer] RADIOLOGY [facility] Patient Name: MILENA MCGHEE Exam Date/Time: 11/11/2022 12:27 Procedure: XR SHOULDER 2+ VIEWS LEFT Ordering Provider: STEVENS DORA Reason For Exam: EXAMINATION: XR SHOULDER 2+ VIEWS LEFT CLINICAL HISTORY: m77.8 COMPARISON: None TECHNIQUE: Grashey, axillary, and transscapular views of the left shoulder FINDINGS: There is no acute fracture or dislocation. No osseous lesions are seen. The glenohumeral and acromioclavicular joints are intact. The regional soft tissue structures are unremarkable. [facility]IOLOG[facility] Mike Chandra M D - 11/12/2022 Patient Name: MILENA MCGHEE Exam Date/Time: 11/11/2022 12:27 Procedure: XR SHOULDER 2+ VIEWS LEFT Ordering Provider: STEVENS DORA Reason For Exam: EXAMINATION: XR SHOULDER 2+ VIEWS LEFT CLINICAL HISTORY: m77.8 COMPARISON: None TECHNIQUE: Grashey, axillary, and transscapular views of the left shoulder FINDINGS: There is no acute fracture or dislocation. No osseous lesions are seen. The glenohumeral and acromioclavicular joints are intact. The regional soft tissue structures are unremarkable. IMPRESSION: 1. No acute osseous findings in the left shoulder. Report Dictated on Electronically Signed By: Mike Chandra Electronically Signed Date/Time: 11/12/2022 4:37 PM EST [facility] XR Shoulder - left 2 ViewsOr dered By: Mike Chandra on 11-12-2022 [facility] Work Phone: XR Shoulder - left 2 Viewson 11-11-2022 Radiology Study observation (narrative) [facility] Laboratory - Chemistry and C hemistry - challengeon 09-16-2022 Bilirubin Ql (U) Negative [facility] Work Phone: Glucose Ql (U) Negative [facility] Work Phone: Ketones Ql (U) Negative [facility] Work Phone: pH (U) 5.5 [pH] [facility] Work Phone: Specific gravity (U) [Rel density] 1.015 [facility] Work Phone: Urobilinogen (U) [Mass/Vol] 0.9567248 mg/dL [facility] Work Phone: Laboratory - Hematology and Cell countson 09-16-2022 Hemoglobin Ql (U) Negative [facility] Work Phone: Laboratory - Specimen inform ationon 09-16-2022 Clarity (U) Clear [facility] Work Phone: Color (U) Yellow [facility] Work Phone: Laboratory - Urinalysison Nitrite Ql (U) Negative [facility] Work Phone: Protein Ql (U) Negative [facility] Work Phone: No Panel Informationon 09-16 Urine Leukocytes Negatve [facility] Work Phone: Urine Non-Hemolyzed Blood [facility] Work Phone: 25-hydroxyvitamin D3 [Mass/V ol]on 08-29-2022 Interpretation and review of laboratory results Normal [facility] Therapy is based on measurement of Total 25-OHD with the following classification levels: Less than 20 ng/mL: Indicative of Vit D deficiency 20-30 ng/mL: Suggests Vit D insufficiency Optimal: Greater than or equal to 30 ng/mL Test performed by [employer] Immuno[employer], measuring Total Vitamin D, not individual fractions. [facility] CBC panel Auto (Bld)on 08-29 Erythrocyte distribution width (RBC) [Ratio] 12.6 % 11.5 - 14.5 % [facility] Hematocrit (Bld) [Volume fraction] 39.6 % 35.0 - 47.0 % [facility] Hemoglobin (Bld) [Mass/Vol] 13.4 g/dL 11.7 - 16.0 g/dL [facility] Interpretation and review of laboratory results Normal [facility] MCH (RBC) [Entitic mass] 32.5 pg 26.0 - 34.0 pg [facility] MCHC (RBC) [Mass/Vol] 33.8 % 32.0 - 36.0 % [facility] MCV (RBC) [Entitic vol] 96.1 fL 80.0 - 98.0 fL [facility] Platelet mean volume (Bld) [Entitic vol] 11.3 fL 7.4 - 12.4 fL [facility] Comment on above: MPV is a calculated measurement using platelet volume ratio Platelets (Bld) [#/Vol] 195 10*3/uL 140 - 440 10*3/uL [facility] RBC (Bld) [#/Vol] 4.12 10*6/uL 3.8 - 5.20 10*6/uL [facility] WBC (Bld) [#/Vol] 6.4 10*3/uL 3.6 - 10.7 10*3/uL [facility] Magnesiumon 08-29-2022 Magnesium [Mass/Vol] 1.9 mg/dL 1.6 - 2 .3 mg/dL [facility] Magnesium [Mass/Vol]on 08-29 Interpretation and review of laboratory results Normal [facility] Microalbumin/Creatinine rati o panel (U)on 08-29-2022 Albumin DL <= 20 mg/L (U) [Mass/Vol] 9.1 mg/L 0.0 - 29.9 mg/L [facility] Albumin/Creatinine DL <= 20 mg/L (U) [Mass ratio] 5.3 mg/g 0.0 - 29.9 mg/g [facility] CREATININE, URINE 171.4 mg/dL No Range [facility] Microalbumin concentrations <30 are considered normal, 30-300 are considered microalbuminuria (or risk of diabetic nephropathy), and >300 are considered clinical albuminuria (clinical nephropathy). Diabetes Care,27, Supplement 1, J96-83, 2004 [facility] PTH, intacton 08-29-2022 Parathyrin.intact [Mass/Vol] 99.1 pg/mL High 7.5 - 53.5 pg/mL [facility] Parathyrin.intact [Mass/Vol] on 08-29-2022 Interpretation and review of laboratory results Abnormal [facility] Renal function 2000 panelOrd ered By: Flakita Solomon on 08-29-2022 Albumin [Mass/Vol] 4.2 g/dL 3.5 - 5.0 g/dL [facility] Anion gap [Moles/Vol] 4 mmol/L 3 - 13 mmol/L [facility] Calcium [Mass/Vol] 9.0 mg/dL 8.4 - 10. 4 mg/dL [facility] Chloride [Moles/Vol] 107 mmol/L 98 - 10 7 mmol/L [facility] CO2 [Moles/Vol] 26 mmol/L 22 - 30 mmol/L [facility] Creatinine [Mass/Vol] 1.23 mg/dL High 0.52 - 1.04 mg/dL [facility] GFR/1.73 sq M.predicted MDRD (S/P/Bld) [Vol rate/Area] 45.6 mL/min/{1.73_m2} Low - PINF [facility] Comment on above: Calculation based on the Chronic Kidney Disease Epidemiology Collaboration (CKD-EPI) equation refit without adjustment for race Glucose [Mass/Vol] 100 mg/dL 70 - 100 mg/dL [facility] Interpretation and review of laboratory results Abnormal [facility] Phosphate [Mass/Vol] 3.1 mg/dL 2.5 - 4 .5 mg/dL [facility] Potassium [Moles/Vol] 3.9 mmol/L 3.5 - 5.1 mmol/L [facility] Sodium [Moles/Vol] 137 mmol/L 135 - 145 mmol/L [facility] Urea nitrogen [Mass/Vol] 16 mg/dL 7 - 17 mg/dL [facility] Vitamin D 25 hydroxyon 08-29 25-hydroxyvitamin D3 [Mass/Vol] 35 ng/mL 30 - 100 ng/mL [facility] MG Breast Tomosynthesis Scr Blon 06-13-2022 MG Breast Tomosynthesis Scr Bl Patient Name: MILENA MCGHEE Mammography ACCESSION EXAM DATE/TIME PROCEDURE ORDERING PROVIDER [id number] 06/13/2022 15:19 EDT MG Breast Tomosynthesis BRITTNEY STEVENS DORA L BI Scr CPT code [id number] Reason For Exam (MG Breast Tomosynthesis BI Scr) screening Report TIME SINCE LAST MAMMOGRAM: Last mammogram was performed 2 years ago. REASON FOR EXAM: screening, asymptomatic. PROCEDURE: MG BREAST TOMOSYNTHESIS BL SCR: JUNE 13, 2022 - 2D/3D Procedure 3D Bilateral CC and MLO view(s) were taken. 2D Bilateral CC and MLO view(s) were taken. Prior study comparison: June 08, 2020, bilateral MG breast tomosynthesis bl scr performed at [facility]. January 01, 2015, bilateral screening mammogram performed at [facility]. February 08, 2013, bilateral screening mammogram performed at [facility]. TISSUE DENSITY: BIRADS B - There are scattered fibroglandular densities. . PATIENT CANCER HISTORY: No Personal History of Cancer FAMILY CANCER HISTORY: No Family History of Cancer FINDINGS: No suspicious masses, architectural distortions or suspiciously clustered microcalcifications are identified. There is no evidence of skin thickening or nipple retraction. There are no significant changes when compared with prior studies. No mammographic evidence of malignancy. Markings on images: BB's = Nipples; skin lesions Open yuhaaviatam = Palpable Line = Scar 2D digital mammography and tomosynthesis imaging were performed and reviewed with CAD. ASSESSMENT: Category 1 Negative RECOMMENDATION: Routine screening mammogram of both breasts in 1 year. . Mammography Report Report Dictated on Cancer Risk Assessment: This risk assessment is based on patient provided information collected in a risk survey taken at the time of this examination. Lifetime breast cancer risk: Average Risk - If greater than or equal to 20%, consider annual mammogram and annual screening Breast MRI or follow up in high risk clinic. A score of Average Risk indicates a score of less than 20%. Is the patient at elevated risk based on the HBOC criteria? No (Hereditary Breast and Ovarian Cancer) - If yes, consider genetic counseling and testing with high risk follow up. Is the patient at elevated risk based on the Díaz Syndrome criteria? No - If yes, consider genetic counseling and testing with high risk follow up. Final Signed Date and Time: 06/13/2022 3:28 pm Signed by: MD LAMBERT LAUREN B [facility] Laboratory - Chemistry and C hemistry - challengeon 06-11-2022 Bilirubin Ql (U) Negative [facility] Work Phone: Glucose Ql (U) Negative [facility] Work Phone: Ketones Ql (U) Negative [facility] Work Phone: pH (U) 6.0 [pH] [facility] Work Phone: Urobilinogen (U) [Mass/Vol] 0.7598364 mg/dL [facility] Work Phone: Laboratory - Hematology and Cell countson 06-11-2022 Hemoglobin Ql (U) Trace [facility] Work Phone: Laboratory - Specimen inform ationon 06-11-2022 Clarity (U) Clear [facility] Work Phone: Color (U) Yellow [facility] Work Phone: Laboratory - Urinalysison Protein Ql (U) Negative [facility] Work Phone: No Panel Informationon 06-11 Urine Bacteria None Seen [facility] Work Phone: Urine Leukocytes Positive [facility] Work Phone: Urine Microscopic RBC None Seen [facility] Work Phone: Urine Microscopic WBC None Seen [facility] Work Phone: Urine Non-Hemolyzed Blood [facility] Work Phone: Absolute lymphocyte counton 04-16-2022 Lymphocytes Auto (Unsp spec) [#/Vol] 2.19 10*3/uL 0.83-4.51 [facility] Work Phone: Basophil percentageon 2021 Basophils/100 WBC (Bld) 0.8 % 0-1 [facility] Work Phone: Bilirubin [Mass/Vol] 0.50 mg/dL 0.20-1.[address] [facility] Work Phone: Comment on above: For patients on eltr ombopag therapy, use of Dimension [place] TBIL is not recommended. Chloride [Moles/Vol] 109 mmol/L 98-[address] [facility] Work Phone: Cholesterol [Mass/Vol] 165 mg/dL <200 [facility] Work Phone: Comment on above: <200 mg/dL Desirable 200-240 mg/dL Borderline >240 mg/dL High Risk Eosinophils/100 WBC (Bld) 3.4 % 0-5 [facility] Work Phone: Glucose [Mass/Vol] 134 mg/dL 74-106 [facility] Work Phone: [phone] Comment on above: Fasting Glucose resu lt greater than or equal to 126 mg/dL suggests DIABETES MELLITUS per A.D.A. criteria. Neutrophils (Bld) [#/Vol] 5.4 10*3/uL 2.0-7.7 [facility] Work Phone: Neutrophils/100 WBC (Bld) 63.2 % 47-70 [facility] Work Phone: Potassium [Moles/Vol] 4.3 mmol/L 3.5-5.1 [facility] Work Phone: Protein [Mass/Vol] 7.1 g/dL 6.4-8.2 [facility] Work Phone: Sodium [Moles/Vol] 141 mmol/L 136-145 [facility] Work Phone: Triglyceride [Mass/Vol] 337 mg/dL <199 [facility] Work Phone: Comment on above: The drugs N-Acetylcy steine and Metamizole may falsely depress this assay.Serum Triglycerides Reference Interval Normal <150 mg/dL Borderline high 150 - 199 mg/dL High 200 - 499 mg/dL Very High > or = 500 mg/dL WBC (Bld) [#/Vol] 8.6 10*3/uL 4.4-11.0 [facility] Work Phone: Blood erythrocytes count (nu mber/volume)on 04-16-2022 RBC (Bld) [#/Vol] 3.99 10*6/uL 4.2-5.4 [facility] Work Phone: Blood hemoglobin measurement (mass/volume)on 04-16-2022 Hemoglobin (Bld) [Mass/Vol] 12.8 g/dL 12.0-15.0 [facility] Work Phone: Blood lymphocytes/100 leukoc yteson 04-16-2022 Lymphocytes/100 WBC (Bld) 25.6 % 19-41 [facility] Work Phone: Blood monocytes/100 leukocyt eson 04-16-2022 Monocytes/100 WBC (Bld) 6.8 % 0-10 [facility] Work Phone: Blood platelet mean volumeon 04-16-2022 Platelet mean volume (Bld) [Entitic vol] 11.6 fL 6.2-12.0 [facility] Work Phone: Determination of erythrocyte mean corpuscular volume (MCV)on 04-16-2022 MCV (RBC) [Entitic vol] 97.0 fL 81-99 [facility] Work Phone: Hematocrit Auto (Bld) [Volum e fraction]on 04-16-2022 Hematocrit (Bld) [Volume fraction] 38.7 % 37-47 [facility] Work Phone: Laboratory - Chemistry and C hemistry - challengeon 04-16-2022 ALP [Catalytic activity/Vol] 140 U/L 45-117 [facility] Work Phone: ALT [Catalytic activity/Vol] 24 U/L 13-56 [facility] Work Phone: CO2 [Moles/Vol] 26.0 mmol/L 21.0-32.0 [facility] Work Phone: Globulin (S) [Mass/Vol] 3.2 g/dL 2.2-4.2 [facility] Work Phone: Urea nitrogen/Creatinine [Mass ratio] 11.0 mg/mg 10-20 [facility] Work Phone: Laboratory - Hematology and Cell countson 04-16-2022 Erythrocyte distribution width (RBC) [Entitic vol] 43.9 fL 35.1-43.9 [facility] [place] [facility] Work Phone: Erythrocyte distribution width (RBC) [Ratio] 12.3 % 11.6-14.6 [facility] [place] [facility] Work Phone: Immature granulocytes/100 WBC (Bld) 0.200 % 0.0-0.9 [facility] [place] [facility] Work Phone: Comment on above: IG% - Immature Granu locytes (promyelocytes, myelocytes and metamyelocytes) > 1% indicates that a LEFT SHIFT is Present. MCH (RBC) [Entitic mass] 32.1 pg 27.0-32.0 [facility] [place] [facility] Work Phone: Nucleated RBC/100 WBC (Bld) [Ratio] 0 % 0-5 [facility] [place] [facility] Work Phone: MCHC Auto (RBC) [Mass/Vol]on 04-16-2022 MCHC (RBC) [Mass/Vol] 33.1 g/dL 32-36 [facility] Work Phone: No Panel Informationon 04-16 Estimated GFR (MDRD) Amer 42 mL/min >60 [facility] [place] [facility] Work Phone: Comment on above: GFR Calc Estimated GFR (MDRD) Non-Af Amer 35 mL/min >60 [facility] [place] [facility] Work Phone: Comment on above: Non- GFR Calc Platelets bldon 04-16-2022 Platelets (Bld) [#/Vol] 206 10*3/uL 150-450 [facility] [place] [facility] Work Phone: Serum or plasma albumin laz urement (mass/volume)on 04-16-2022 Albumin [Mass/Vol] 3.9 g/dL 3.2-5.0 [facility] [place] Work Phone: Serum or plasma albumin/glob ulin mass ratioon 04-16-2022 Albumin/Globulin [Mass ratio] 1.2 {ratio} 0.9-2.4 [facility] [place] [facility] Work Phone: Serum or plasma calcium laz urement (mass/volume)on 04-16-2022 Calcium [Mass/Vol] 9.1 mg/dL 8.5-10.1 [facility] [place] Work Phone: Serum or plasma cholesterol in HDL measurement (mass/volume)on 04-16-2022 Cholesterol in HDL [Mass/Vol] 47 mg/dL >40 [facility] [place] [facility] Work Phone: Comment on above: The drugs N-Acetylcy steine and Metamizole may falsely depress this assay. Reference Range HDL <40 mg/dL Low HDL Cholesterol HDL >or= 60 mg/dL High HDL Cholesterol Serum or plasma cholesterol in VLDL measurement (mass/volume)on 04-16-2022 Cholesterol in VLDL [Mass/Vol] 67 mg/dL 5-40 [facility] [place] [facility] Work Phone: Serum or plasma creatinine m easurement (mass/volume)on 04-16-2022 Creatinine [Mass/Vol] 1.54 mg/dL 0.55-1.02 [facility] Work Phone: Comment on above: The validity of the calculated GFR & GFRAA in patients over 70 years has not been determined. Clinical correlation is essential. Serum or plasma low density lipoprotein (LDL) cholesterol measurement (mass/volume)on 04-16-2022 Cholesterol in LDL [Mass/Vol] 51 mg/dL 0-130 [facility] [place] [facility] Work Phone: Serum or plasma urea nitroge n measurement (mass/volume)on 04-16-2022 Urea nitrogen [Mass/Vol] 17 mg/dL 7-18 [facility] [place] [facility] Work Phone: Thin prep Papanicolaou smear with manual screeningon 04-16-2022 Thin prep Papanicolaou smear with manual screening 18 U/L 15-37 [facility] [place] [facility] Work Phone: Thin prep Papanicolaou smear with manual screening 6 5-15 [facility] [place] [facility] Work Phone: Culture, urineon 03-08-2022 Bacteria identified Cx Nom (U) Klebsiella pneumoniae sp pneum [facility] [place] [facility] Work Phone: Laboratory - Chemistry and C hemistry - challengeon 03-07-2022 Bilirubin Ql (U) Negative [facility] [place] [facility] Work Phone: Glucose Ql (U) Negative [facility] [place] [facility] Work Phone: Ketones Ql (U) Negative [facility] [place] [facility] Work Phone: pH (U) 5.5 [pH] [facility] [place] [facility] Work Phone: Specific gravity (U) [Rel density] 1.025 [facility] [place] [facility] Work Phone: Urobilinogen (U) [Mass/Vol] Negative [facility] [place] [facility] Work Phone: Laboratory - Hematology and Cell countson 03-07-2022 Hemoglobin Ql (U) Hemolyzed [facility] [place] [facility] Work Phone: Laboratory - Specimen inform ationon 03-07-2022 Clarity (U) Cloudy [facility] [place] [facility] Work Phone: Color (U) Yellow [facility] [place] [facility] Work Phone: Laboratory - Urinalysison Nitrite Ql (U) Negative [facility] [place] [facility] Work Phone: Protein Ql (U) Negative [facility] [place] [facility] Work Phone: No Panel Informationon 03-07 Urine Bacteria None Seen [facility] [place] [facility] Work Phone: Urine Leukocytes Positive [facility] [place] [facility] Work Phone: Urine Microscopic RBC None Seen [facility] Work Phone: Urine Microscopic WBC None Seen [facility] Work Phone: Urine Non-Hemolyzed Blood Trace [facility] [place] [facility] Work Phone: Basic Metabolic Panelon Anion gap [Moles/Vol] 7 mmol/L Normal 3-13 [facility] Comment on above: Performed By: #### V D25H, PTH3 #### [facility] [address] [place] [address] #### PHOS3, BMP3, CRTUR, TPUR, CUA2 #### [facility] [address] [place] [address] Calcium [Mass/Vol] 9.7 mg/dL Normal 8.4-10.4 [facility] Comment on above: Performed By: #### V D25H, PTH3 #### [facility] [address] [place] [address] #### PHOS3, BMP3, CRTUR, TPUR, CUA2 #### [facility] [address] [place] [address] CO2 [Moles/Vol] 28 mmol/L Normal 22-30 [facility] Comment on above: Performed By: #### V D25H, PTH3 #### [facility] [address] [place] [address] #### PHOS3, BMP3, CRTUR, TPUR, CUA2 #### [facility] [address] [place] [address] Glucose [Mass/Vol] 105 mg/dL High 70-100 [facility] Comment on above: Performed By: #### V D25H, PTH3 #### [place] [address] [place] [address] #### PHOS3, BMP3, CRTUR, TPUR, CUA2 #### [facility] [address] [place] [address] Urea nitrogen [Mass/Vol] 19 mg/dL Normal 9-20 [facility] Comment on above: Performed By: #### V D25H, PTH3 #### [place] [address] [place] [address] #### PHOS3, BMP3, CRTUR, TPUR, CUA2 #### [facility] [address] [place] [address] Creatinine [Mass/Vol] 1.26 mg/dL High 0.52-1.25 [facility] Comment on above: Performed By: #### V D25H, PTH3 #### [place] [address] [place] [address] #### PHOS3, BMP3, CRTUR, TPUR, CUA2 #### [facility] [address] [place] [address] GFR/1.73 sq M.predicted among blacks MDRD (S/P/Bld) [Vol rate/Area] 48.1 mL/min/{1.73_m2} Abnormal >60 [facility] Comment on above: Performed By: #### V D25H, PTH3 #### [place] [address] [place] [address] #### PHOS3, BMP3, CRTUR, TPUR, CUA2 #### [facility] [address] [place] [address] GFR/1.73 sq M.predicted among non-blacks MDRD (S/P/Bld) [Vol rate/Area] 41.5 mL/min/{1.73_m2} Abnormal >60 [facility] Comment on above: Result Comment: KDIG O guidelines provide the following GFR categories: Stage GFR(ml/min/1.73 m2) Terms G1 >=90 Normal or high G2 60-89 Mildly decreased* G3a 45-59 Mildly to moderately decreased G3b 30-44 Moderately to severely decreased G4 15-29 Severely decreased G5 <15 Kidney failure *Relative to young adult level. In the absence of evidence of kidney damage, neither GFR category G1 nor G2 fulfill the criteria for CKD. The CKD-EPI equation is validated in individuals 18 years of age and older. Currently the best equation for estimating glomerular filtration rate (GFR) from serum creatinine in children is the Bedside Jensen equation. It is less accurate in patients with extremes of muscle mass, restriction of dietary protein, ingestion of creatine, extra-renal metabolism of creatinine, or treatment with medications that affect renal tubular creatinine secretion. Performed By: #### V D25H, PTH3 #### [facility] [address] [facility] [place] [address] #### PHOS3, BMP3, CRTUR, TPUR, CUA2 #### [facility] [address] [place] [address] Potassium [Moles/Vol] 4.3 mmol/L Normal 3.5-5.1 [facility] Comment on above: Performed By: #### V D25H, PTH3 #### [facility] [address] [place] [address] #### PHOS3, BMP3, CRTUR, TPUR, CUA2 #### [facility] [address] [place] [address] Sodium [Moles/Vol] 140 mmol/L Normal 135-145 [facility] Comment on above: Performed By: #### V D25H, PTH3 #### [facility] [address] [place] [address] #### PHOS3, BMP3, CRTUR, TPUR, CUA2 #### [facility] [address] [place] [address] Chloride [Moles/Vol] 105 mmol/L Normal 98-107 [facility] Comment on above: Performed By: #### V D25H, PTH3 #### [facility] [address] [place] [address] #### PHOS3, BMP3, CRTUR, TPUR, CUA2 #### [facility] [address] [place] [address] Anion gap [Moles/Vol] 7 mmol/L 3 - 13 mmol/L [facility] Calcium [Mass/Vol] 9.7 mg/dL 8.4 - 10. 4 mg/dL [facility] Chloride [Moles/Vol] 105 mmol/L 98 - 10 7 mmol/L [facility] CO2 [Moles/Vol] 28 mmol/L 22 - 30 mmol/L [facility] Creatinine [Mass/Vol] 1.26 mg/dL High 0.52 - 1.25 mg/dL [facility] EGFR IF NonAfrican [place] 41.5 mL/min Abnormal >60 [facility] Comment on above: KDIGO guidelines pro vide the following GFR categories: Stage GFR(ml/min/1.73 m2) Terms G1 >=90 Normal or high G2 60-89 Mildly decreased* G3a 45-59 Mildly to moderately decreased G3b 30-44 Moderately to severely decreased G4 15-29 Severely decreased G5 <15 Kidney failure *Relative to young adult level. In the absence of evidence of kidney damage, neither GFR category G1 nor G2 fulfill the criteria for CKD. The CKD-EPI equation is validated in individuals 18 years of age and older. Currently the best equation for estimating glomerular filtration rate (GFR) from serum creatinine in children is the Bedside Jensen equation. It is less accurate in patients with extremes of muscle mass, restriction of dietary protein, ingestion of creatine, extra-renal metabolism of creatinine, or treatment with medications that affect renal tubular creatinine secretion. GFR/1.73 sq M.predicted among blacks MDRD (S/P/Bld) [Vol rate/Area] 48.1 mL/min/{1.73_m2} Abnormal >60 [facility] Glucose [Mass/Vol] 105 mg/dL High 70 - 100 mg/dL [facility] Interpretation and review of laboratory results Abnormal [facility] Potassium [Moles/Vol] 4.3 mmol/L 3.5 - 5.1 mmol/L [facility] Sodium [Moles/Vol] 140 mmol/L 135 - 145 mmol/L [facility] Urea nitrogen (BldV) [Mass/Vol] 19 mg/dL 9 - 20 mg/dL [facility] Complete Urinalysison 2021 Appearance (U) Clear Normal Clear [facility] Comment on above: Result Comment: . Performed By: #### V D25H, PTH3 #### [place] [address] [place] [address] #### PHOS3, BMP3, CRTUR, TPUR, CUA2 #### [facility] [address] [place] [address] Bilirubin,Urine Negative Normal Negative [facility] Comment on above: Result Comment: . Performed By: #### V D25H, PTH3 #### [facility] [address] [place] [address] #### PHOS3, BMP3, CRTUR, TPUR, CUA2 #### [facility] [address] [place] [address] Color (U) LIGHT YELLOW Normal Lt. Yellow [facility] Comment on above: Result Comment: . Performed By: #### V D25H, PTH3 #### [place] [address] [place] [address] #### PHOS3, BMP3, CRTUR, TPUR, CUA2 #### [facility] [address] [place] [address] Glucose Ql (U) Normal Normal Normal (<70) [facility] Comment on above: Result Comment: . Performed By: #### V D25H, PTH3 #### [facility] [address] [place] [address] #### PHOS3, BMP3, CRTUR, TPUR, CUA2 #### [facility] [address] [place] [address] Ketone,Urine Negative Normal Negative [facility] Comment on above: Result Comment: . Performed By: #### V D25H, PTH3 #### [place] [address] [place] [address] #### PHOS3, BMP3, CRTUR, TPUR, CUA2 #### [facility] [address] [place] [address] Leukocytes,Urine Negative Normal Negative [facility] Comment on above: Result Comment: . Performed By: #### V D25H, PTH3 #### [facility] [address] [place] [address] #### PHOS3, BMP3, CRTUR, TPUR, CUA2 #### [facility] [address] [place] [address] Nitrites,Urine Negative Normal Negative [facility] Comment on above: Result Comment: . Performed By: #### V D25H, PTH3 #### [place] [address] [place] [address] #### PHOS3, BMP3, CRTUR, TPUR, CUA2 #### [facility] [address] [place] [address] Occult Blood,Urine Negative Normal Negative [facility] Comment on above: Result Comment: . Performed By: #### V D25H, PTH3 #### [place] [address] [place] [address] #### PHOS3, BMP3, CRTUR, TPUR, CUA2 #### [facility] [address] [place] [address] pH,Urine 5.5 Normal 5.0-8.0 [facility] Comment on above: Result Comment: . Performed By: #### V D25H, PTH3 #### [place] [address] [place] [address] #### PHOS3, BMP3, CRTUR, TPUR, CUA2 #### [facility] [address] [place] [address] Specific [place],Urine 1.013 Normal 1.005 - 1.030 [facility] Comment on above: Result Comment: . Performed By: #### V D25H, PTH3 #### [facility] [address] [place] [address] #### PHOS3, BMP3, CRTUR, TPUR, CUA2 #### [facility] [address] [place] [address] Total Protein,Urine Negative Normal Negative [facility] Comment on above: Result Comment: . Performed By: #### V D25H, PTH3 #### [facility] [address] [place] [address] #### PHOS3, BMP3, CRTUR, TPUR, CUA2 #### [facility] [address] [place] [address] Urobilinogen,Urine Normal Normal Normal (0-1) [facility] Comment on above: Result Comment: . Performed By: #### V D25H, PTH3 #### [facility] [address] [place] [address] #### PHOS3, BMP3, CRTUR, TPUR, CUA2 #### [facility] [address] [place] [address] Creatinine, Random Urineon 0 - Creatinine (U) [Mass/Vol] 82.3 mg/dL No Range [facility] Creatinine, Ur Randomon Creatinine, Ur Random 82.3 mg/dL Normal No Range [facility] Comment on above: Performed By: #### V D25H, PTH3 #### [facility] [address] [place] [address] #### PHOS3, BMP3, CRTUR, TPUR, CUA2 #### [facility] [address] [place] [address] No Panel Informationon 02-20 Test Performed by [facility], [address] , [address] LAB [facility] Test Performed by [facility], [address] , [address] [facility] PTH, Intacton 02-20-2022 PTH, Intact 61.0 pg/mL High 8.0-54.0 [facility] Comment on above: Performed By: #### V D25H, PTH3 #### [facility] [address] [place] [address] #### PHOS3, BMP3, CRTUR, TPUR, CUA2 #### [facility] [address] [place] [address] Interpretation and review of laboratory results Abnormal [facility] Pth Intact 61 pg/mL High 8.0 - 54.0 pg/mL [facility] Test Performed by [facility], [address] [place] [address] [facility] Phosphoruson 02-20-2022 Phosphate [Mass/Vol] 3.5 mg/dL Normal 2.5-4.5 [facility] Comment on above: Performed By: #### V D25H, PTH3 #### [facility] [address] [place] [address] #### PHOS3, BMP3, CRTUR, TPUR, CUA2 #### [facility] [address] [place] [address] Phosphate [Mass/Vol] 3.5 mg/dL 2.5 - 4 .5 mg/dL [facility] Protein, Ur Randomon 022 Protein, Ur Random < 5 Normal No Range [facility] Comment on above: Performed By: #### V D25H, PTH3 #### [facility] [address] [place] [address] #### PHOS3, BMP3, CRTUR, TPUR, CUA2 #### [facility] [address] [place] [address] Protein, urine, randomon Protein, Urine, Random <5 No Ra nge mg/dL [facility] Urinalysison 02-20-2022 Appearance (U) Clear Clear NA [facility] Comment on above: . Bilirubin Urine Negative Negative mg/dL [facility] Comment on above: . Color (U) LIGHT YELLOW Lt. Yellow NA [facility] Comment on above: . Glucose, Ur Normal Normal (<70) mg/dL [facility] Comment on above: . Ketones Ql (U) Negative Negative mg/dL [facility] Comment on above: . LEUKOCYTES, UA Negative Negative Nicole/uL [facility] Comment on above: . Nitrite, Urine Negative Negative NA [facility] Comment on above: . Occult Blood,Urine Negative Negative mg/dL [facility] Comment on above: . pH (U) 5.5 [pH] [facility] Comment on above: . Specific [place], Urine 1.013 [facility] Comment on above: . Total Protein, Urine Negative Negativ e mg/dL [facility] Comment on above: . Urobilinogen, Urine Normal Normal (0-1) mg/dL [facility] Comment on above: . Test Performed by [facility], [address] , [address] LAB [facility] Vit D 25-OH, Totalon 022 Vit D 25-OH, Total 53 ng/mL Normal 30-100 [facility] Comment on above: Result Comment: Ther apy is based on measurement of Total 25- OHD with the following classification levels: Less than 20 ng/mL: Indicative of Vit D deficiency 20-30 ng/mL: Suggests Vit D insufficiency Optimal: Greater than or equal to 30 ng/mL Test performed by [employer], measuring Total Vitamin D, not individual fractions. Performed By: #### V D25H, PTH3 #### [facility] [address] [place] [address] #### PHOS3, BMP3, CRTUR, TPUR, CUA2 #### [facility] [address] [place] [address] Vitamin D 25 Hydroxyon 02-20 Vit D, 25-Hydroxy 53 ng/mL 30 - 100 ng/mL [facility] Comment on above: Therapy is based on measurement of Total 25-OHD with the following classification levels: Less than 20 ng/mL: Indicative of Vit D deficiency 20-30 ng/mL: Suggests Vit D insufficiency Optimal: Greater than or equal to 30 ng/mL Test performed by [employer], measuring Total Vitamin D, not individual fractions. Test Performed by [facility], [address], [place], [place] [id number] [place] [address] LAB [facility] Laboratory - Chemistry and C hemistry - challengeon 02-17-2022 Bilirubin Ql (U) Negative [facility] [place] [facility] Work Phone: Glucose Ql (U) Negative [facility] Work Phone: Ketones Ql (U) Negative [facility] [place] [facility] Work Phone: pH (U) 7.0 [pH] [facility] [place] [facility] Work Phone: Specific gravity (U) [Rel density] 1.025 [facility] [place] [facility] Work Phone: Laboratory - Hematology and Cell countson 02-17-2022 Hemoglobin Ql (U) Negative [facility] Work Phone: Laboratory - Specimen inform ationon 02-17-2022 Clarity (U) Clear [facility] [place] [facility] Work Phone: Color (U) YULIYA [facility] Work Phone: Laboratory - Urinalysison Nitrite Ql (U) Negative [facility] Work Phone: No Panel Informationon 02-17 Urine Bacteria Large [facility] Work Phone: Urine Leukocytes Positive [facility] Work Phone: Urine Microscopic RBC None Seen [facility] Work Phone: Urine Microscopic WBC Large [facility] Work Phone: Urine Non-Hemolyzed Blood Negative [facility] Work Phone: Basic Metabolic Panelon 04-0 Anion gap [Moles/Vol] 10 mmol/L 3 - 13 mmol/L [facility] Work Phone: Calcium [Mass/Vol] 9.7 mg/dL 8.4 - 10. 4 mg/dL [facility] Work Phone: Chloride [Moles/Vol] 107 mmol/L 98 - 10 7 mmol/L [facility] Work Phone: CO2 [Moles/Vol] 24 mmol/L 22 - 30 mmol/L [facility] Work Phone: Creatinine [Mass/Vol] 1.11 mg/dL 0.52 - 1.25 mg/dL [facility] Work Phone: EGFR IF NonAfrican [place] 48.7 mL/min Abnormal >60 [facility] Work Phone: Comment on above: KDIGO guidelines pro vide the following GFR categories: Stage GFR(ml/min/1.73 m2) Terms G1 >=90 Normal or high G2 60-89 Mildly decreased* G3a 45-59 Mildly to moderately decreased G3b 30-44 Moderately to severely decreased G4 15-29 Severely decreased G5 <15 Kidney failure *Relative to young adult level. In the absence of evidence of kidney damage, neither GFR category G1 nor G2 fulfill the criteria for CKD. The CKD-EPI equation is validated in individuals 18 years of age and older. Currently the best equation for estimating glomerular filtration rate (GFR) from serum creatinine in children is the Bedside Jensen equation. It is less accurate in patients with extremes of muscle mass, restriction of dietary protein, ingestion of creatine, extra-renal metabolism of creatinine, or treatment with medications that affect renal tubular creatinine secretion. GFR/1.73 sq M predicted among blacks MDRD (S/P/Bld) [Vol rate/Area] 56.4 mL/min/{1.73_m2} Abnormal >60 [facility] Work Phone: [phone] Glucose [Mass/Vol] 131 mg/dL High 70 - 100 mg/dL [facility] Work Phone: Interpretation and review of laboratory results Abnormal [employer] Work Phone: [phone] Potassium [Moles/Vol] 4.2 mmol/L 3.5 - 5.1 mmol/L [facility] Work Phone: Sodium [Moles/Vol] 142 mmol/L 135 - 145 mmol/L [facility] Work Phone: [phone] Urea nitrogen (BldV) [Mass/Vol] 15 mg/dL 7 - 20 mg/dL [facility] Work Phone: [phone] Creatinine, Random Urineon 0 01-24-2021 Creatinine (U) [Mass/Vol] 91.2 mg/dL No Range [facility] Work Phone: [phone] Otheron 01-24-2021 Test Performed by [facility], [address], [place], [place] [address] [facility] Work Phone: [phone] Test Performed by [facility], [address] , [place], [place] [address] [facility] Work Phone: Test Performed by [facility], [address] , [place], [place] [address] [facility] Work Phone: 1 PTH, Intacton 01-24-2021 Pth Intact 45.6 pg/mL 15.0 - 63.0 pg/mL [facility] Work Phone: 1 Phosphoruson 01-24-2021 Phosphate [Mass/Vol] 2.9 mg/dL 2.5 - 4 .5 mg/dL [facility] Work Phone: 1) Protein, urine, randomon Protein (U) [Mass/Vol] 9 mg/dL No Range [facility] Work Phone: 1) Urinalysison 01-24-2021 Appearance (U) Clear Clear NA [facility] Work Phone: Comment on above: . Bilirubin Urine Negative Negative mg/dL [facility] Work Phone: Comment on above: . Color (U) LIGHT YELLOW Lt. Yellow NA [facility] Work Phone: ) Comment on above: . Glucose, Ur Normal Normal (<70) mg/dL [facility] Work Phone: 1 Comment on above: . Interpretation and review of laboratory results Abnormal [facility] Work Phone: ) Ketones Ql (U) Negative Negative mg/dL [facility] Work Phone: 1 Comment on above: . LEUKOCYTES, UA 75 Abnormal Negative Nicole/uL [facility] Work Phone: Comment on above: . Nitrite, Urine Negative Negative NA [facility] Work Phone: 1) Comment on above: . Occult Blood,Urine Negative Negative mg/dL [facility] Work Phone: [phone] Comment on above: . pH (U) 6.5 [pH] [facility] Work Phone: ) Comment on above: . Protein (U) [Mass/Vol] Negative Negat steve mg/dL [facility] Work Phone: [phone] Comment on above: . Specific [place], Urine 1.011 [facility] Work Phone: Comment on above: . Squam Epithel, UA 0-2 3 - 5 /[HPF] [facility] Work Phone: Comment on above: . Urobilinogen, Urine Normal Normal (0-1) mg/dL [facility] Work Phone: Comment on above: . Volume 12 ml [facility] Work Phone: Comment on above: . WBC, UA 3-5 0 - 5 /[HPF] [facility] Work Phone: Comment on above: . Test Performed by [facility], [address] , [place] [address] [facility] Work Phone: Vitamin D 25 Hydroxyon 01-24 Vit D, 25-Hydroxy 43 ng/mL 30 - 100 ng/mL [facility] Work Phone: Comment on above: Therapy is based on measurement of Total 25-OHD with the following classification levels: Less than 20 ng/mL: Indicative of Vit D deficiency 20-30 ng/mL: Suggests Vit D insufficiency Optimal: Greater than or equal to 30 ng/mL Test performed by [employer], measuring Total Vitamin D, not individual fractions. Op Noteon 01-16-2021 Op Note PATIENT: MODESTO MCGHEE ADMISSION DATE: 01/16/2021 SURGERY DATE: 01/16/2021 DATE OF : 1945 AGE: 75 ADMITTING PHYSICIAN: Bridget Briones MD ATTENDING PHYSICIAN: Bridget Briones MD DICTATING PHYSICIAN: Bridget Briones MD OPERATIVE RECORD Procedure: EGD WITH TRANSORAL BIOPSIES OF DUODENUM FOR CELIAC AND ANTRUM FOR HISTOLOGY AND HELICOBACTER PYLORI AND COLONOSCOPY WITH POLYPECTOMY AT 30 CM IN SIGMOID COLON. Preoperative Diagnosis: Bright red blood per rectum and epigastric pain. Postoperative Diagnoses: Bright red blood per rectum, most likely due to internal hemorrhoids, one 5 mm sessile polyp at 30 cm in the sigmoid colon seen and removed and normal duodenum, mild antral gastritis with erythema, no erosions, no ulcerations, small hiatal hernia, gastroesophageal junction without signs of gastroesophageal reflux disease at 38 cm, remainder of esophagus normal. Anesthesia: Monitored anesthesia care. Estimated Blood Loss: Minimal. Complications: None. Specimen: Duodenal biopsy sent separately. Gastric biopsy sent separately from colon polyp. Description of Procedure: A time-out was performed and endoscopy confirming patient identification site of procedure. Digital rectal exam was performed which was significant for internal hemorrhoids only. The colonoscope was advanced to the cecum with external pressure slowly withdrawn. There was one polyp sessile 5 mm in the sigmoid call colon that was removed. There were few scattered diverticula in the sigmoid colon. No additional polyps or masses were seen. The scope was retroflexed in the rectum and a picture taken. Pictures were taken of landmarks and are in the radiology area for reviewing. An upper endoscopy was also performed. The endoscope was placed into the upper esophagus without difficulty, advanced through the esophagus in the stomach, through the pylorus into the duodenum. The duodenum appeared normal. Through the third portion, a biopsy was taken in the second portion for celiac disease. The scope was withdrawn in the stomach. The antrum was significant for erythema without discrete ulceration. Biopsies were taken for histology and Helicobacter. The scope was retroflexed. There were no polyps or masses. There was a small hiatal hernia. The GE junction was at 38 cm and there was no evidence of reflux esophagitis. The Z-line appeared normal. The remainder of the esophagus was normal. When the biopsies were taken, there was no bleeding. Diskriter Job ID: [id number] Bridget Briones MD DOD:01/16/2021 10:36 A SHAUN/antonio DOT:01/16/2021 11:06 A Job Number: [id number] Document Number: [id number] cc: Bridget Briones MD [address] [place] [id number] [facility] Surgical Pathologyon 021 Surgical Pathology [id number] [facility] PATHOLOGY AND LABORATORY MEDICINE [address] [place] [id number] FINAL SURGICAL PATHOLOGY REPORT NAME: MILENA MCGHEE : 1945 75 Y F TOBIAS NO.: [id number] LOCATION: EO PROCEDURE 01/16/2021 DATE: SURGEON: BRIDGET RBIONES M.D. RECEIVED 01/16/2021 DATE: ATTENDING: BRIDGET BRIONES M.D. REPORT DATE: 01/17/2021 COPIES TO: DIAGNOSIS: A. DUODENUM, BIOPSY - NO SIGNIFICANT PATHOLOGIC CHANGES Comment: The villous architecture is normal, and there is no significant intraepithelial lymphocytosis or crypt hyperplasia. B. STOMACH, ANTRUM, BIOPSY - REACTIVE GASTROPATHY. Comment: H&E stain is negative for H. pylori. No significant active inflammation present. Negative for intestinal metaplasia or malignancy. C. COLON, SIGMOID 30 CM, POLYPECTOMY - POLYPOID FRAGMENTS OF COLONIC MUCOSA WITH FOCAL HYPERPLASTIC CHANGES, SUGGESTIVE OF HYPERPLASTIC POLYP. CRH/CRH Signature> DONTE VALENTINE M.D. CLINICAL INFORMATION: Epigastric pain, rectal bleeding SPECIMEN: (A) DUODENUM, BIOPSY (B) GASTRIC BIOPSY (C) COLON POLYP, BIOPSY GROSS DESCRIPTION: A. Received in formalin labeled duodenum are two segments of brown tissue 0.3 cm each. The specimen is entirely submitted in a single cassette. B. Received in formalin labeled antral biopsy are two segments of brown tissue 0.5 cm. The specimen is entirely submitted in a single cassette. C. Received in formalin labeled sigmoid 30 cm are multiple segments of brown tissue aggregating to 0.4 x 0.4 cm. The specimen is entirely submitted in a single cassette. JCK/0RW Disclaimer: The following statement applies to all immunohistochemistry, in situ hybridization, molecular studies, and immunofluorescence testing. The use of one or more reagents in the above tests is regulated as an analyte specific reagent (ASR). These tests were developed and their performance characteristics determined by the clinical laboratories of [facility]. They have not been cleared by the US Food and Drug Administration (FDA). The FDA has determined that such clearance or approval is not necessary. All the above immunostains were performed on paraffin embedded tissue. Appropriate positive and negative controls (where applicable) were run in parallel with the patient's specimen; these controls showed expected staining pattern, with acceptable intensity of staining. Immunohistochemical assays have not been validated on decalcified tissues. Results should be interpreted with caution given the raised possibility of false negativity on decalcified specimens. Professional Performing Location: [address] [address]. DEPARTMENT OF PATHOLOGY AND LABORATORY MEDICINE [place], [place] [address] [email or web address] Normal [facility] US RETROPERITONEAL COMPLETEo n 05-23-2020 Patient Name: MILENA MCGHEE ---Ultrasound--- Exam Date/Time 05/23/2020 10:00:00 EDT Exam US Retroperitoneal Complete Ordering Physician BRITTNEY STEVENS DORA L Accession Number [id number] CPT4 Codes 83668 () Reason For Exam bilateral kidneys Report COMPLETE BILATERAL RENAL SONOGRAM WITH BLADDER VOLUME History: Renal insufficiency, stage III, back pain Findings: Sonogram directed to the kidneys performed. The right kidney measures 9.6 x 4.4 x 4 cm. The left kidney measures 9.8 x 4.9 x 4.8 cm and has 1.7 x 1.5 x 1.3 cm superior pole cortical cyst and 1.8 x 1.5 x 1.9 cm parapelvic cyst. Both kidneys show no hydronephrosis or appreciable calculi. Additional sonogram images of the urinary bladder were obtained. The urinary bladder is only partially distended and appears unremarkable as shown. Its prevoid volume measures 42 mL. IMPRESSION: Borderline size kidneys without hydronephrosis. Left renal cysts. Report Dictated on --- Final --- Dictated: 05/23/2020 3:22 pm Dictating Physician: MD MARKHAM AHMAD Signed Date and Time: 05/23/2020 3:26 pm Signed by: MD MARKHAM AHMAD Transcribed Date and Time: 05/23/2020 3:22 [place], [place], [facility] Incoming Radiology Results From [facility] - 05/23/2020 3:27 PM EDT Patient Name: MILENA MCGHEE ---Ultrasound--- Exam Date/Time 05/23/2020 10:00:00 EDT Exam US Retroperitoneal Complete Ordering Physician BRITTNEY STEVENS DORA L Accession Number [id number] CPT4 Codes 74550 () Reason For Exam bilateral kidneys Report COMPLETE BILATERAL RENAL SONOGRAM WITH BLADDER VOLUME History: Renal insufficiency, stage III, back pain Findings: Sonogram directed to the kidneys performed. The right kidney measures 9.6 x 4.4 x 4 cm. The left kidney measures 9.8 x 4.9 x 4.8 cm and has 1.7 x 1.5 x 1.3 cm superior pole cortical cyst and 1.8 x 1.5 x 1.9 cm parapelvic cyst. Both kidneys show no hydronephrosis or appreciable calculi. Additional sonogram images of the urinary bladder were obtained. The urinary bladder is only partially distended and appears unremarkable as shown. Its prevoid volume measures 42 mL. IMPRESSION: Borderline size kidneys without hydronephrosis. Left renal cysts. Report Dictated on --- Final --- Dictated: 05/23/2020 3:22 pm Dictating Physician: MD MARKHAM AHMAD Signed Date and Time: 05/23/2020 3:26 pm Signed by: MD MARKHAM AHMAD Transcribed Date and Time: 05/23/2020 3:22 [place], [place] US Retroperitoneal Completeo n 05-23-2020 US Retroperitoneal Complete Patient Name: MILENA MCGHEE Ultrasound Exam Date/Time 05/23/2020 10:00:00 EDT Exam US Retroperitoneal Complete Ordering Physician BRITTNEY STEVENS DORA L Accession Number [id number] CPT4 Codes 13661 () Reason For Exam bilateral kidneys Report COMPLETE BILATERAL RENAL SONOGRAM WITH BLADDER VOLUME History: Renal insufficiency, stage III, back pain Findings: Sonogram directed to the kidneys performed. The right kidney measures 9.6 x 4.4 x 4 cm. The left kidney measures 9.8 x 4.9 x 4.8 cm and has 1.7 x 1.5 x 1.3 cm superior pole cortical cyst and 1.8 x 1.5 x 1.9 cm parapelvic cyst. Both kidneys show no hydronephrosis or appreciable calculi. Additional sonogram images of the urinary bladder were obtained. The urinary bladder is only partially distended and appears unremarkable as shown. Its prevoid volume measures 42 mL. IMPRESSION: Borderline size kidneys without hydronephrosis. Left renal cysts. Report Dictated on Final Dictated: 05/23/2020 3:22 pm Dictating Physician: MD MARKHAM AHMAD Signed Date and Time: 05/23/2020 3:26 pm Signed by: MD MARKHAM AHMAD Transcribed Date and Time: 05/23/2020 3:22 Normal [facility] CT Abdomen Pelvis Wo Contras ton 03-13-2020 Patient Name: MILENA MCGHEE ---CT--- Exam Date/Time 03/13/2020 09:35:[address] Abdomen/Pelvis (No PO, No IV) Ordering Physician BRITTNEY STEVENS DORA L Accession Number [id number] CPT4 Codes 10211 (CT Abdomen/Pelvis (No PO, No IV)) Reason For Exam diverticulitis LLQ pain Report CLINICAL INFORMATION: Left lower quadrant abdominal and pelvic pain. Prior cholecystectomy. CT abdomen and pelvis without intravenous contrast: CT abdomen: Volume acquisition CT images are obtained the diaphragm to the iliac crests without oral or intravenous contrast, both withheld by request of the ordering physician, with axial, coronal and sagittal 2-D reconstructions. Images through the upper abdomen which included lower chest demonstrate minimal increased interstitial densities in the dependent portions of both lower lobes. No calcified renal or proximal ureteral calculi are identified on either side. There is no hydronephrosis or proximal ureteral dilatation on either side. There is a 2.3 x 1.4 cm (transverse, AP) simple appearing posterior left mid renal parapelvic cyst. The unenhanced kidneys are otherwise unremarkable in size, configuration and density. No inflammatory changes are seen in the perinephric fat. The unenhanced liver, spleen and pancreas are grossly unremarkable in size, configuration and density. The gallbladder is surgically absent. There is no ascites or retroperitoneal lymphadenopathy. No other focal mass, fluid collection or inflammatory process is seen. There is no abnormality of the abdominal aorta. There is lower lumbar laminectomy and posterior instrumented fusion (L3-L4) with underlying multilevel degenerative disc disease. CT pelvis: Volume acquisition CT images were obtained from the iliac crests to the symphysis pubis without oral or intravenous contrast with axial, coronal and sagittal 2-D reconstructions. No calcified calculi or dilatation is seen of either distal ureter. The urinary bladder is unopacified and predominantly contracted limiting evaluation. No calcified calculus or obvious abnormality is seen on limited evaluation. There is no abnormality of the postmenopausal uterus or adnexa. No focal mass or fluid collection is seen. There is no iliac or inguinal lymphadenopathy. There are scattered sigmoid colon diverticula without evidence of diverticulitis. No ascites or inflammatory changes are identified. IMPRESSION: 1. No evidence for calcified collecting system calculi or obstruction. 2. Mild sigmoid diverticulosis without evidence of diverticulitis. 3. No evidence of mass, lymphadenopathy or inflammatory process. Report Dictated on --- Final --- Dictated: 03/13/2020 10:13 am Dictating Physician: MD MIKE HARLAN Signed Date and Time: 03/13/2020 10:20 am Signed by: MD MIKE HARLAN Transcribed Date and Time: 03/13/2020 10:13 - [place], [place], [facility] Incoming Radiology Results From [facility] - 03/13/2020 10:22 AM EDT Patient Name: MILENA MCGHEE ---CT--- Exam Date/Time 03/13/2020 09:35:[address] Abdomen/Pelvis (No PO, No IV) Ordering Physician BRITTNEY STEVENS DORA L Accession Number [id number] CPT4 Codes 12988 (CT Abdomen/Pelvis (No PO, No IV)) Reason For Exam diverticulitis LLQ pain Report CLINICAL INFORMATION: Left lower quadrant abdominal and pelvic pain. Prior cholecystectomy. CT abdomen and pelvis without intravenous contrast: CT abdomen: Volume acquisition CT images are obtained the diaphragm to the iliac crests without oral or intravenous contrast, both withheld by request of the ordering physician, with axial, coronal and sagittal 2-D reconstructions. Images through the upper abdomen which included lower chest demonstrate minimal increased interstitial densities in the dependent portions of both lower lobes. No calcified renal or proximal ureteral calculi are identified on either side. There is no hydronephrosis or proximal ureteral dilatation on either side. There is a 2.3 x 1.4 cm (transverse, AP) simple appearing posterior left mid renal parapelvic cyst. The unenhanced kidneys are otherwise unremarkable in size, configuration and density. No inflammatory changes are seen in the perinephric fat. The unenhanced liver, spleen and pancreas are grossly unremarkable in size, configuration and density. The gallbladder is surgically absent. There is no ascites or retroperitoneal lymphadenopathy. No other focal mass, fluid collection or inflammatory process is seen. There is no abnormality of the abdominal aorta. There is lower lumbar laminectomy and posterior instrumented fusion (L3-L4) with underlying multilevel degenerative disc disease. CT pelvis: Volume acquisition CT images were obtained from the iliac crests to the symphysis pubis without oral or intravenous contrast with axial, coronal and sagittal 2-D reconstructions. No calcified calculi or dilatation is seen of either distal ureter. The urinary bladder is unopacified and predominantly contracted limiting evaluation. No calcified calculus or obvious abnormality is seen on limited evaluation. There is no abnormality of the postmenopausal uterus or adnexa. No focal mass or fluid collection is seen. There is no iliac or inguinal lymphadenopathy. There are scattered sigmoid colon diverticula without evidence of diverticulitis. No ascites or inflammatory changes are identified. IMPRESSION: 1. No evidence for calcified collecting system calculi or obstruction. 2. Mild sigmoid diverticulosis without evidence of diverticulitis. 3. No evidence of mass, lymphadenopathy or inflammatory process. Report Dictated on --- Final --- Dictated: 03/13/2020 10:13 am Dictating Physician: MD MIKE HARLAN Signed Date and Time: 03/13/2020 10:20 am Signed by: MD MIKE HARLAN Transcribed Date and Time: 03/13/2020 10:13 [place], [place] CT Abdomen/Pelvis w/o Contra ston 03-13-2020 CT Abdomen/Pelvis w/o Contrast Patient Name: MILENA MCGHEE CT Exam Date/Time 03/13/2020 09:35:[address] Abdomen/Pelvis (No PO, No IV) Ordering Physician BRITTNEY STEVENS DORA L Accession Number [id number] CPT4 Codes 21929 (CT Abdomen/Pelvis (No PO, No IV)) Reason For Exam diverticulitis LLQ pain Report CLINICAL INFORMATION: Left lower quadrant abdominal and pelvic pain. Prior cholecystectomy. CT abdomen and pelvis without intravenous contrast: CT abdomen: Volume acquisition CT images are obtained the diaphragm to the iliac crests without oral or intravenous contrast, both withheld by request of the ordering physician, with axial, coronal and sagittal 2-D reconstructions. Images through the upper abdomen which included lower chest demonstrate minimal increased interstitial densities in the dependent portions of both lower lobes. No calcified renal or proximal ureteral calculi are identified on either side. There is no hydronephrosis or proximal ureteral dilatation on either side. There is a 2.3 x 1.4 cm (transverse, AP) simple appearing posterior left mid renal parapelvic cyst. The unenhanced kidneys are otherwise unremarkable in size, configuration and density. No inflammatory changes are seen in the perinephric fat. The unenhanced liver, spleen and pancreas are grossly unremarkable in size, configuration and density. The gallbladder is surgically absent. There is no ascites or retroperitoneal lymphadenopathy. No other focal mass, fluid collection or inflammatory process is seen. There is no abnormality of the abdominal aorta. There is lower lumbar laminectomy and posterior instrumented fusion (L3-L4) with underlying multilevel degenerative disc disease. CT pelvis: Volume acquisition CT images were obtained from the iliac crests to the symphysis pubis without oral or intravenous contrast with axial, coronal and sagittal 2-D reconstructions. No calcified calculi or dilatation is seen of either distal ureter. The urinary bladder is unopacified and predominantly contracted limiting evaluation. No calcified calculus or obvious abnormality is seen on limited evaluation. There is no abnormality of the postmenopausal uterus or adnexa. No focal mass or fluid collection is seen. There is no iliac or inguinal lymphadenopathy. There are scattered sigmoid colon diverticula without evidence of diverticulitis. No ascites or inflammatory changes are identified. IMPRESSION: 1. No evidence for calcified collecting system calculi or obstruction. 2. Mild sigmoid diverticulosis without evidence of diverticulitis. 3. No evidence of mass, lymphadenopathy or inflammatory process. Report Dictated on Final Dictated: 03/13/2020 10:13 am Dictating Physician: MD MIKE HARLAN Signed Date and Time: 03/13/2020 10:20 am Signed by: MD MIKE HARLAN Transcribed Date and Time: 03/13/2020 10:13 Normal [facility] MRI LUMBAR SPINE W WO CONTRA STon 08-08-2019 Patient Name: MILENA MCGHEE ---MRI--- Exam Date/Time 08/08/2019 13:42:27 EDT Exam MRI Spine Lumbar w/ + w/o Contrast Ordering Physician BRITTNEY GODINEZ BRANDY M Accession Number [id number] CPT4 Codes 92772 () Reason For Exam STENOSIS Report Examination: MRI lumbar spine Clinical Indication: STENOSIS Comparison: 09/08/2017 Findings: Multiplanar multisequence high field strength MRI images were obtained through the lumbar spine pre and post administration of intravenous gadolinium contrast. Five lumbar type vertebra are assumed for purposes of numbering on this examination. Postsurgical changes from the L3-L5 levels with new bilateral pedicle adis and screw fixation. No significant fluid collection surrounding the hardware.. No abnormal intrathecal postcontrast enhancement or clumping of nerve roots. The pedicles of the spinal canal superior to this are shortened resulting in relative congenital central canal stenosis with superimposed degenerative change. The lumbar spine is in normal overall alignment without evidence of spondylolisthesis. The conus terminates at a normal L1 level. No abnormal signal is appreciated within the distal cord. T12-L1: No disc bulge or disc protrusion. No central spinal canal stenosis. No neural foraminal narrowing. L1-L2: Mild facet arthropathy and ligamentum flavum enfolding. 3 mm right neural foraminal disc protrusion, abutting the exiting nerve root. Moderate right neural foraminal narrowing. Mild left neural foraminal narrowing. No additional disc bulge or disc protrusion. No superimposed central spinal canal stenosis. L2-L3: 3 mm circumferential broad-based disc bulge. Bilateral facet arthropathy contributes to moderate bilateral neural foraminal narrowing, right greater than left. No superimposed central canal stenosis. L3-L4: Intervertebral disc space narrowing with facet arthropathy. Tiny disc marginal endplate osteophytosis. The central canal is patent. No evidence of neural foraminal narrowing. L4-L5: Bilateral facet arthropathy. 3 mm circumferential broad-based disc bulge, extending into the neural foramina where it abuts the exiting nerve roots and contributes to moderate bilateral neural foraminal narrowing. There appears to be extrusion of disc contents within the left neural foramen (image 11 series 2). No superimposed central canal narrowing. L5-S1: Advanced bilateral facet arthropathy. No significant disc bulge or protrusion. The central canal is patent. No significant bilateral neural foraminal narrowing. Impression: 1.Multilevel degenerative changes as detailed above. Postsurgical changes from L3 to L5 with bilateral pedicle adis and screw fixation. 2.At L1-L2 there is moderate right and mild left neural foraminal narrowing. Overall this level is similar to the prior exam. 3.At L2-L3 there is moderate bilateral neural foraminal narrowing, right greater than left. Overall this level is similar to the prior exam. 4.At L4-L5 there is a broad-based disc bulge appears to abut the exiting nerve roots and contributes to moderate bilateral neural foraminal narrowing. There is new extrusion of disc contents within the left lateral foramen. Report Dictated on --- Final --- Dictating Physician: MD BALTAZAR JASON Signed Date and Time: 08/08/2019 3:32 pm Signed by: MD BALTAZAR JASON Transcribed Date and Time: 08/08/2019 3:33 [facility], [place], [facility] Incoming Radiology Results From [facility] - 08/08/2019 3:33 PM EDT Patient Name: MILENA MCGHEE ---MRI--- Exam Date/Time 08/08/2019 13:42:27 EDT Exam MRI Spine Lumbar w/ + w/o Contrast Ordering Physician BRITTNEY GODINEZ BRANDY M Accession Number [id number] CPT4 Codes 90031 () Reason For Exam STENOSIS Report Examination: MRI lumbar spine Clinical Indication: STENOSIS Comparison: 09/08/2017 Findings: Multiplanar multisequence high field strength MRI images were obtained through the lumbar spine pre and post administration of intravenous gadolinium contrast. Five lumbar type vertebra are assumed for purposes of numbering on this examination. Postsurgical changes from the L3-L5 levels with new bilateral pedicle adis and screw fixation. No significant fluid collection surrounding the hardware.. No abnormal intrathecal postcontrast enhancement or clumping of nerve roots. The pedicles of the spinal canal superior to this are shortened resulting in relative congenital central canal stenosis with superimposed degenerative change. The lumbar spine is in normal overall alignment without evidence of spondylolisthesis. The conus terminates at a normal L1 level. No abnormal signal is appreciated within the distal cord. T12-L1: No disc bulge or disc protrusion. No central spinal canal stenosis. No neural foraminal narrowing. L1-L2: Mild facet arthropathy and ligamentum flavum enfolding. 3 mm right neural foraminal disc protrusion, abutting the exiting nerve root. Moderate right neural foraminal narrowing. Mild left neural foraminal narrowing. No additional disc bulge or disc protrusion. No superimposed central spinal canal stenosis. L2-L3: 3 mm circumferential broad-based disc bulge. Bilateral facet arthropathy contributes to moderate bilateral neural foraminal narrowing, right greater than left. No superimposed central canal stenosis. L3-L4: Intervertebral disc space narrowing with facet arthropathy. Tiny disc marginal endplate osteophytosis. The central canal is patent. No evidence of neural foraminal narrowing. L4-L5: Bilateral facet arthropathy. 3 mm circumferential broad-based disc bulge, extending into the neural foramina where it abuts the exiting nerve roots and contributes to moderate bilateral neural foraminal narrowing. There appears to be extrusion of disc contents within the left neural foramen (image 11 series 2). No superimposed central canal narrowing. L5-S1: Advanced bilateral facet arthropathy. No significant disc bulge or protrusion. The central canal is patent. No significant bilateral neural foraminal narrowing. Impression: 1.Multilevel degenerative changes as detailed above. Postsurgical changes from L3 to L5 with bilateral pedicle adis and screw fixation. 2.At L1-L2 there is moderate right and mild left neural foraminal narrowing. Overall this level is similar to the prior exam. 3.At L2-L3 there is moderate bilateral neural foraminal narrowing, right greater than left. Overall this level is similar to the prior exam. 4.At L4-L5 there is a broad-based disc bulge appears to abut the exiting nerve roots and contributes to moderate bilateral neural foraminal narrowing. There is new extrusion of disc contents within the left lateral foramen. Report Dictated on --- Final --- Dictating Physician: MD BALTAZAR JASON Signed Date and Time: 08/08/2019 3:32 pm Signed by: MD BALTAZAR JASON Transcribed Date and Time: 08/08/2019 3:33 [place] Creatinine, Serumon 08-01-20 19 Creatinine [Mass/Vol] 1.31 mg/dL High 0.52 - 1.25 mg/dL [place] EGFR IF NonAfrican [place] 39.8 mL/min >60 [place] Comment on above: Source- MDRD equatio n with creatinine calibration to IDMS(NKDEP) eGFR not recommended for drug dose adjustment GFR/1.73 sq M predicted among blacks MDRD (S/P/Bld) [Vol rate/Area] 48.2 mL/min/{1.73_m2} >60 [place] Interpretation and review of laboratory results Abnormal [place] Test Performed by [facility], [facility]aura[facility] Ross. , [address] CBC and Differentialon 02-14 Abs Baso 0.03 k/uL Normal <0.11 [facility] Comment on above: Performed By: #### C BCDIF, CMP, LIPA, MG1 ####[facility] [address] [place], [place] [phone] Abs Adams 0.93 k/uL High <0.87 [facility] Comment on above: Performed By: #### C BCDIF, CMP, LIPA, MG1 ####[facility] [address] [place] [address] Abs Neut 7.65 k/uL High 1.45-7.50 [facility] Comment on above: Performed By: #### C BCDIF, CMP, LIPA, MG1 ####[facility] [address] [place] [address] Basophils/100 WBC Auto (Bld) 0.3 % Normal [facility] Comment on above: Performed By: #### C BCDIF, CMP, LIPA, MG1 ####[place] [address] Eosinophils 0.25 10*3/uL Normal <0.46 [facility] Comment on above: Performed By: #### C BCDIF, CMP, LIPA, MG1 ####[place] [address] Eosinophils/100 leukocytes 2.5 % Normal [facility] Comment on above: Performed By: #### C BCDIF, CMP, LIPA, MG1 ####[facility] [address] [place] [address] Erythrocyte distribution width Auto Ratio (RBC) 11.9 % Normal 11.5-15.0 [facility] Comment on above: Performed By: #### C BCDIF, CMP, LIPA, MG1 ####[facility] [address] [place] [address] Erythrocytes (RBC) 3.44 10*6/uL Low 3.90-5.20 [facility] Comment on above: Performed By: #### C BCDIF, CMP, LIPA, MG1 ####[facility] [address] [place] [address] Hematocrit (HCT) 33.3 % Low 36.0-46.0 [facility] Comment on above: Performed By: #### C BCDIF, CMP, LIPA, MG1 ####[facility] [address] [place] [address] Hemoglobin mass conc (Bld) 10.8 g/dL Low 11.5-15.5 [facility] Comment on above: Performed By: #### C BCDIF, CMP, LIPA, MG1 ####[facility] [address] [place] [address] Lymphocytes 1.06 10*3/uL Normal 1.00-4.00 [facility] Comment on above: Performed By: #### C BCDIF, CMP, LIPA, MG1 ####[facility] [address] [place] [address] Lymphocytes/100 leukocytes 10.7 % Normal [facility] Comment on above: Performed By: #### C BCDIF, CMP, LIPA, MG1 ####[facility] [address] [place] [address] MCH 31.4 pG Normal 26.0-34.0 [facility] Comment on above: Performed By: #### C BCDIF, CMP, LIPA, MG1 ####[facility] [address] [place] [address] MCHC mass conc (RBC) 32.4 g/dL Normal 30.5-36.0 [facility] Comment on above: Performed By: #### C BCDIF, CMP, LIPA, MG1 ####[facility] [address] [place] [address] MCV 96.8 fL Normal 80.0-100.0 [facility] Comment on above: Performed By: #### C BCDIF, CMP, LIPA, MG1 ####[facility] [address] [place] [address] Monocytes/100 leukocytes 9.4 % Normal [facility] Comment on above: Performed By: #### C BCDIF, CMP, LIPA, MG1 ####[facility] [address] [place] [address] Neutrophils/100 WBC Auto (Bld) 77.1 % Normal [facility] Comment on above: Performed By: #### C BCDIF, CMP, LIPA, MG1 ####[facility] [address] [place] [address] Platelet mean volume (PMV) 10.7 fL Normal 9.0-12.7 [facility] Comment on above: Performed By: #### C BCDIF, CMP, LIPA, MG1 ####[facility] [address] [place] [address] Platelets 202 10*3/uL Normal 150-400 [facility] Comment on above: Performed By: #### C BCDIF, CMP, LIPA, MG1 ####[facility] [address] [place] [address] WBC (Leukocytes) 9.92 10*3/uL Normal 3.70-11.00 [facility] Comment on above: Performed By: #### C BCDIF, CMP, LIPA, MG1 ####[facility] [address] [place] [address] CK, Total and CKMBon 018 CKMB 0.7 % Normal 0.0-4.0 [facility] Comment on above: Performed By: #### C KCKMB ####[facility] [address] [place] [address] Creatine kinase (CK) 198 U/L High 42-196 [facility] Comment on above: Performed By: #### C KCKMB ####[facility] [address] [place] [address] MB 1.3 ng/mL Normal <4.3 [facility] Comment on above: Performed By: #### C KCKMB ####[facility] [address] [place] [address] Comp Metabolic Panelon 02-14 Alanine aminotransferase (ALT) 18 U/L Normal 7-38 [facility] Comment on above: Performed By: #### C BCDIF, CMP, LIPA, MG1 ####[facility] [address] [place] [address] Albumin 3.5 g/dL Low 3.9-4.9 [facility] Comment on above: Performed By: #### C BCDIF, CMP, LIPA, MG1 ####[facility] [address] [place] [address] Alkaline phosphatase (ALP) 101 U/L Normal 32-117 [facility] Comment on above: Performed By: #### C BCDIF, CMP, LIPA, MG1 ####[facility] [address] [place] [address] Anion gap 11 mmol/L Normal 9-18 [facility] Comment on above: Performed By: #### C BCDIF, CMP, LIPA, MG1 ####[facility] [address] [place] [address] Aspartate aminotransferase (AST) 22 U/L Normal 13-35 [facility] Comment on above: Performed By: #### C BCDIF, CMP, LIPA, MG1 ####[facility] [address] [place] [address] Bilirubin (total) 0.9 mg/dL Normal 0.2-1.3 [facility] Comment on above: Performed By: #### C BCDIF, CMP, LIPA, MG1 ####[facility] [address] [place] [address] Calcium 8.9 mg/dL Normal 8.5-10.2 [facility] Comment on above: Performed By: #### C BCDIF, CMP, LIPA, MG1 ####[facility] [address] [place] [address] Chloride 97 mmol/L Normal 97-105 [facility] Comment on above: Performed By: #### C BCDIF, CMP, LIPA, MG1 ####[facility] [address] [place] [address] CO2 29 mmol/L Normal 22-30 [facility] Comment on above: Performed By: #### C BCDIF, CMP, LIPA, MG1 ####[facility] [address] [place] [address] Creatinine 0.93 mg/dL Normal 0.58-0.96 [facility] Comment on above: Performed By: #### C BCDIF, CMP, LIPA, MG1 ####[facility] [address] [place] [address] eGFR (non-black) 59 . Normal [facility] Comment on above: Result Comment: eGFR (Estimated GFR) Units of measure: mL/min/1.73 meters squaredeGFR is derived from the reexpressed MDRD Study equation using the following parameters: serum creatinine, age, gender and race. The creatinine assay has been calibrated to be traceable to IDMS.An eGFR <60 mL/min/1.73m2 for >3 months is consistent with chronic kidney disease. Refer to KDOQI guidelines for clinical interpretation.In patients with unstable renal function, e.g. those with acute kidney injury, the eGFR may not accurately reflect actual GFR. Performed By: #### C BCDIF, CMP, LIPA, MG1 ####[facility] [address] [place] [address] eGFR (non-black) mL/min/{1.73_m2} Normal [facility] Comment on above: Performed By: #### C BCDIF, CMP, LIPA, MG1 ####[facility] [address] [place] [address] Glucose mass conc 118 mg/dL High 74-99 [facility] Comment on above: Result Comment: The [place] Diabetes Association (ADA) provides guidance for cutoff values for fasting glucose and random glucose. The ADA defines fasting as no caloric intake for at least 8 hours. Fasting plasma glucose results between 100 to 125 mg/dL indicate increased risk for diabetes (prediabetes).Fasting plasma glucose results greater than or equal to 126 mg/dL meet the criteria for diagnosis of diabetes. In the absence of unequivocal hyperglycemia, results should be confirmed by repeat testing. In a patient with classic symptoms of hyperglycemia or hyperglycemic crisis, random plasma glucose results greater than or equal to 200 mg/dL meet the criteria for diagnosis of diabetes.Reference: Standards of Medical Care in Diabetes 2016, [place] Diabetes Association. Diabetes Care. 2016.39(Suppl 1). Performed By: #### C BCDIF, CMP, LIPA, MG1 ####[facility] [address] [place] [address] Potassium molar conc 3.7 mmol/L Normal 3.7-5.1 [facility] Comment on above: Performed By: #### C BCDIF, CMP, LIPA, MG1 ####[facility] [address]qtoocr[address]92 [place] [address] Protein 6.6 g/dL Normal 6.3-8.0 [facility] Comment on above: Performed By: #### C BCDIF, CMP, LIPA, MG1 ####[facility] K[address] [place] [phone] Sodium 137 mmol/L Normal 136-144 [facility] Comment on above: Performed By: #### C BCDIF, CMP, LIPA, MG1 ####[facility] [address] [place] [address] Urea nitrogen 12 mg/dL Normal 7-21 [facility] Comment on above: Performed By: #### C BCDIF, CMP, LIPA, MG1 ####[facility] [address] [place] [address] ED NOTEon 02-14-2018 ED NOTE HNO ID: [id number] Author: Isidra (Rn) Mike RN Service: (none) Author Type: Registered Nurse Type: ED Notes Filed: 02/14/2018 2:45 AM Note Text: Daughters depart For home. Aware of future transfer. [facility] ED NOTE HNO ID: [id number] thor: Isidra CabreraRn) Lew Mckeonice: (none)Author Type: Registered NurseType: ED NotesFiled: 02/14/2018 2:37 AMNote Text: Bed assignment obtained at [address] [phone]. [employer] will be here in 45 minutes. [facility] ED NOTE HNO ID: [id number] Author: Isidra CabreraRn) FE Mckeon Service: (none) Author Type: Registered Nurse Type: ED Notes Filed: 02/14/2018 2:34 AM Note Text: Up to restroom. [facility] ED NOTE HNO ID: [id number] thor: Isidra CabreraRn) Lew Mckeonice: (none)Author Type: Registered NurseType: ED NotesFiled: 02/14/2018 1:19 AMNote Text: Patient back to bed safely. Dry heaving. Patient very uncomfortable stilleven after medication. Dr. Vincent at to speak with patient anddaughters. Aware of possible need for transfer to [place] to be seen by Norris epstein. [facility] ED NOTE HNO ID: [id number] Author: Isidra CabreraRn) Mike RN Service: (none) Author Type: Registered Nurse Type: ED Notes Filed: 02/14/2018 1:07 AM Note Text: Pt's pain came down slightly to 7/10. Assisted up to restroom to void. IVF bolus complete. [facility] ED NOTE HNO ID: [id number] Author: Isidra (Rn) Mike, RN Service: (none) Author Type: Registered Nurse Type: ED Notes Filed: 02/13/2018 11:44 PM Note Text: Pt trying denise srinivas and crackers at this time. Dr. Vincent aware. [facility] ED NOTE HNO ID: [id number] Author: Isidra CabreraRn) Mike, RN Service: (none) Author Type: Registered Nurse Type: ED Notes Filed: 02/13/2018 11:30 PM Note Text: Rec'd report and assumed care of patient. [facility] Lipaseon 02-14-2018 Lipase 83 U/L High 16- [facility] Comment on above: Performed By: #### C BCDIF, CMP, LIPA, MG1 ####[facility] [address] [place] [address] Magnesiumon 02-14-2018 Magnesium 2.1 mg/dL Normal 1.7-2.3 [facility] Comment on above: Performed By: #### C BCDIF, CMP, LIPA, MG1 ####[facility] [address] [place] [address] Troponin Ton 02-14-2018 Troponin T.cardiac mass conc ug/L Normal 0.000-0.02 9 [facility] Comment on above: Performed By: #### T NT ####[facility] [address] [place] [address] Urinalysison 02-14-2018 Bilirubin, Urine Negative Normal Negative [facility] Comment on above: Performed By: #### U A ####[facility] [address] [place] [address] Hemoglobin mass conc (Bld) Negative Normal Negative [facility] Comment on above: Performed By: #### U A ####[facility] [address] [place] [address] Leukest Negative Normal Negative [facility] Comment on above: Performed By: #### U A ####[facility] [address] [place] [address] pH of blood 7.0 [pH] Normal 5.0-8.0 [facility] Comment on above: Performed By: #### U A ####[facility] [address] [place] [address] Protein, Urine Negative Normal Negative [facility] Comment on above: Performed By: #### U A ####[facility] [address] [place] [address] Specific [place], Ur 1.010 Normal 1.001-1 .02 9 [facility] Comment on above: Performed By: #### U A ####[facility] [address] [place] [address] Urine, clarity Clear Normal Clear [facility] Comment on above: Performed By: #### U A ####[facility] [address] [place] [address] Urine, color Yellow Normal Yellow [facility] Comment on above: Performed By: #### U A ####[facility] [address] [place] [address] Urine, glucose presence Negative Normal Negative [facility] Comment on above: Performed By: #### U A ####[facility] [address]cf[address] [place] [address] Urine, ketones presence 15 Critically abnormal Negative [facility] Comment on above: Performed By: #### U A ####[facility] [address] [place] [address] Urine, nitrite presence Negative Normal Negative [facility] Comment on above: Performed By: #### U A ####[facility] [address] [place] [address] Urine, urobilinogen 0.2 Normal 0.2-1.0 [facility] Comment on above: Performed By: #### U A ####[facility] [address] [place] [address] XR ACUTE ABD SERIES 2V ABD+C XRon 02-14-2018 XR ACUTE ABD SERIES 2V ABD+CXR * * *Final Report* * *DATE OF EXAM: Feb 13 2018 10:30PM MDX [id number] - XR ACUTE ABD SERIES 2V ABD+CXR / REASON: Diarrhea * * * * Physician Interpretation * * * * ACUTE ABDOMINAL SERIES WITH CHESTHISTORY: DiarrheaTECHNIQUE:Chest: Portable AP uprightAbdomen: AP supine and upright views.COMPARISON: None available.RESULT:Lines/tub es/devices: None visualized.Heart/mediastin um: Within normal limits.Lungs/pleura: Clear.Abdomen: Moderate amount of fecal material and gas scattered throughout a nondilated colon. No dilated small bowel. There are no air-fluid levels or free intraperitoneal air on the upright view of the abdomen.Bones: L3-4 laminectomy and posterior pedicle screw and bar fixation bilaterally.Incidental finding of cholecystectomy surgical clips.IMPRESSION:1. No active disease in the chest.2. 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 Taking phenergan which hasrelieved vomiting, but abdominal crampin persists. [facility] ED PROV NOTEon 02-13-2018 ED PROV NOTE HNO ID: [id number] thor: Taylor Vincent, MDService: (none)Author Type: PhysicianType: ED Provider NotesFiled: 02/14/2018 2:46 AMNote Text:ED Provider NotePatient Name: Milena Portillo LitzyMRN: [id number] DATE: 02/13/18HistoryPatient presents with:Nausea AND Vomiting: vomiting stoppedWeaknessAbdominal PainPatient s/p lumbar fusion POD #5 here for persistent n/v and generalizedweakness. Patient reports having history of n/v after anesthesia in thepast and this week she has been vomiting intermittently since surgery.Zofran did not help with the vomiting but phenergan did. She wasdischarged from the hospital yesterday. She was able to eat a smallamount last evening but today has been vomiting again. She was initiallysent home on zofran but today took a phenergan orally at 1500 but vomitedat 1530. She complains of extreme nausea, epigastric discomfort, andweakness. Her back pain has slowly gotten better and does not seem to becontributing to her vomiting. She denies fever/chills, urinary symptoms,flank pain, worsening back pain, or headache.She has been oxycodone until Thursday when they changed it to norco. Herlast dose was at 10 am this morning. She denies constipation but doescomplain of diarrhea since . She has h/o UTI requiring bactrimdaily but has not taken it this past week until today.PAST MEDICAL HISTORYDiagnosis Date- Atrophic vaginitis- Back pain, chronic- GERD (gastroesophageal reflux disease)- HTN (hypertension)- IBS (irritable bowel syndrome)- Spinal stenosis, lumbar region, without neurogenic claudicationPAST SURGICAL HISTORYProcedure Laterality Date- BACK SURGERY HX 05/12/2014- COLONOSCOPY 2008- COLONOSCOPY 2013 Dr. Briones- REMOVAL GALLBLADDER 11/30/2017FAMILY HISTORYProblem Relation Age of Onset- Adopted: Yes- adopted [OTHER] OtherSocial HistorySocial History Main Topics- Smoking status: Never Smoker- Smokeless tobacco: Never Used- Alcohol use Not on file- Drug use: Unknown- Sexual activity: Not on fileALLERGIESAllergen Reactions- Nitrofurantoin Hives- Promethazine Unknown- Sulfasalazine RashReview of SystemsConstitutional: Negative for chills and fever.HENT: Negative. ThrushEyes: Negative.Respiratory: Negative. Negative for cough and shortness of breath.Cardiovascular: Negative. Negative for chest pain, palpitations and legswelling.Gastrointestin al: Positive for abdominal pain, diarrhea, nausea andvomiting.Genitourinary: Negative. Negative for difficulty urinating and dysuria.Musculoskeletal: Negative.Skin: Negative.Neurological: Positive for weakness.Psychiatric/Behav ioral: Negative.Physical ExamBP 154/78 Pulse 83 Temp (Src) 98.5 (Oral) Resp 16 Wt 160 lb(72.6kg) SpO2 95%Physical ExamConstitutional: She is oriented to person, place, and time. She appearswell-developed and well-nourished. No distress.HENT:Head: Normocephalic and atraumatic.Right Ear: External ear normal.Left Ear: External ear normal.Nose: Nose normal.Mouth/Throat: Oropharynx is clear and moist.Eyes: Conjunctivae and EOM are normal. Pupils are equal, round, andreactive to light.Neck: Normal range of motion. Neck supple.Cardiovascular: Normal rate, regular rhythm, normal heart sounds andintact distal pulses.No murmur heard.Pulmonary/Chest: Effort normal and breath sounds normal. No stridor. Norespiratory distress. She has no wheezes. She has no rales. She exhibitsno tenderness.Abdominal: Soft. Bowel sounds are normal. She exhibits no distension.There is tenderness in the epigastric area. There is no rebound.Musculoskeletal: Normal range of motion. She exhibits no edema ortenderness.Lumbar incision with staplesNo erythema, drainage, or tendernessLymphadenopathy: She has no cervical adenopathy.Neurological: She is alert and oriented to person, place, and time. Shehas normal reflexes. No cranial nerve deficit.Skin: Skin is warm and dry. No rash noted. No erythema.Psychiatric: She has a normal mood and affect. Her behavior is normal.Judgment and thought content normal.Nursing note and vitals reviewed.Diagnostic TestingED Labs Ordered and Reviewed - No data to displayResults for orders placed or performed during the hospital encounter of02/13/18COMP METABOLIC PANELResult Value Ref Range Protein, Total 6.6 6.3 - 8.0 g/dL Albumin 3.5 (L) 3.9 - 4.9 g/dL Calcium 8.9 8.5 - 10.2 mg/dL Bilirubin, Total 0.9 0.2 - 1.3 mg/dL Alkaline Phosphatase 101 32 - 117 U/L AST 22 13 - 35 U/L Glucose 118 (H) 74 - 99 mg/dL BUN 12 7 - 21 mg/dL Creatinine 0.93 0.58 - 0.96 mg/dL Sodium 137 136 - 144 mmol/L Potassium 3.7 3.7 - 5.1 mmol/L Chloride 97 97 - 105 mmol/L CO2 29 22 - 30 mmol/L Anion Gap 11 9 - 18 mmol/L ALT 18 7 - 38 U/L eGFR- >60 eGFR-All Other Races 59 .LIPASE BLDResult Value Ref Range Lipase 83 (H) 16 - 61 U/LMAGNESIUM BLDResult Value Ref Range Magnesium 2.1 1.7 - 2.3 mg/dLCK TOTAL AND CK-MBResult Value Ref Range CK 198 (H) 42 - 196 U/L MB 1.3 <4.3 ng/mL CK MB % 0.7 0.0 - 4.0 %TROPONIN TResult Value Ref Range Troponin T <0.010 0.000 - 0.029 ng/mLCBC + DIFFResult Value Ref Range WBC 9.92 3.70 - 11.00 k/uL RBC 3.44 (L) 3.90 - 5.20 m/uL Hemoglobin 10.8 (L) 11.5 - 15.5 g/dL Hematocrit 33.3 (L) 36.0 - 46.0 % MCV 96.8 80.0 - 100.0 fL MCH 31.4 26.0 - 34.0 pG MCHC 32.4 30.5 - 36.0 g/dL RDW-CV 11.9 11.5 - 15.0 % Platelet Count 202 150 - 400 k/uL MPV 10.7 9.0 - 12.7 fL Neut% 77.1 % Abs Neut (ANC) 7.65 (H) 1.45 - 7.50 k/uL Lymph% 10.7 % Abs Lymph 1.06 1.00 - 4.00 k/uL Adams% 9.4 % Abs Adams 0.93 (H) <0.87 k/uL Eosin% 2.5 % Abs Eosin 0.25 <0.46 k/uL Baso% 0.3 % Abs Baso 0.03 <0.11 k/uLURINALYSISResult Value Ref Range Color Yellow Yellow Appearance (U) Clear Clear Glucose, Urine Negative Negative mg/dL Bilirubin, Urine Negative Negative Ketones, Urine 15 (A) Negative Specific [place], Ur 1.010 1.001 - 1.029 Hemoglobin/Blood,Ur Negative Negative pH, Urine 7.0 5.0 - 8.0 Protein, Urine Negative Negative mg/dL Urobilinogen 0.2 0.2 - 1.0 Nitrites Negative Negative Leukest Negative NegativeXR ACUTE ABD SERIES 3V (2V ABD/1V CXR) Final Result IMPRESSION: 1. No active disease in the chest. 2. No acute findings in the abdomen and pelvis. Apartment Groundskeeper: EDE Transcribe Date/Time: Feb 13 2018 10:37P Dictated by : JONATHAN PAZ MD This examination was interpreted and the report reviewed and electronically signed by: JONATHAN PAZ MD on Feb 13 2018 10:41PM ESTProceduresMedical Decision Making / ED CourseClinical Impressions as of Feb 14 0245Fusion of spine, unspecified spinal regionIntractable vomiting with nausea, unspecified vomiting typepatient POD #6 lumbar fusion here for intractable n/v, oral thrush, andback pain. No obvious evidence of infection at surgical site, afebrile,and WBC normal as above. Labs essentially normal. She was given IVF's 2liters and reglan with minimal relief. Still with dry heaves despitetreatment. Will transfer to [facility] with ortho consult if needed. [facility] and Flakita from [facility], [facility] can beconsulted if needed at [facility].PlanThe Patient was TRANSFERRED to: [facility]Condition at time of disposition: stableSIGNATURE: Reynaldo Tate MD02/14/18 0220Taylor Vincent MD02/14/18 0246 [facility] US ARTERIAL PVR LOWERon 08-20 US ARTERIAL PVR LOWER * * *Final Report* * *DATE OF EXAM: Sep 08 2017 2:36PM DASHA 1107 - US ARTERIAL PVR LOWER / REASON: bilateral leg cramps r25.2 * * * * Physician Interpretation * * * * US ARTERIAL PVR LOWERINDICATION: bilateral leg cramps r25.2/ /TECHNIQUE: Bilateral lower extremity arterial PVR.RESULT:Right side:High thigh index:1.09Low thigh index: 1.10Calf index: 0.99Ankle (DP) index: 0.97. Ankle (PT) index: 0.88Digit 0.87Left side:High thigh index: 1.26Low thigh index:1.26Calf index: 1.19Ankle (DP) index: 1.01. Ankle (PT) index: 0.96Digit 1.03No gross depression of Doppler waveformsIMPRESSION:Indice s do not indicate significant peripheral vascular diseaseTranscriptionist: EDE Transcribe Date/Time: Sep 08 2017 3:11PDictated by : IZABELLA COLE MDThis examination was interpreted and the report reviewed and electronically signed by: IZABELLA COLE MD on Sep 08 2017 3:14PM [id number] [facility] Chart Maintenanceon 05-28-20 17 Left ventricular Ejection fraction 60 % [facility] Work Phone: Office Visiton 05-20-2017 Documentation of current medications (procedure) Done Invalid Interpretation Code [facility] Work Phone: [phone] Fall risk assessment No [facility] Work Phone: [phone] Protein mass conc Done [facility] Work Phone: Clinical Lists Update: 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 Work Phone: Culture, urine Bacteria identified Cx Nom (U) Klebsiella pneumoniae sp pneum [facility] Work Phone: Bacteria identified Cx Nom (U) Citrobacter freundii [facility] Work Phone: Bacteria identified Cx Nom (U) Positive [facility] Work Phone: Vital Signs Date Time Vital Sign Value Performing Clinician Facility 04-14-2025 11:18-0400 Body height 165.1 cm Chantell Cruz MD Work Phone: [facility] 04-14-2025 11:18-0400 Body mass index (BMI) [Ratio] 28.62 kg/m2 Chantell Cruz MD Work Phone: [facility] 04-14-2025 11:18-0400 Body weight 78.02 kg Chantell Cruz MD Work Phone: [facility] 04-14-2025 11:18-0400 Diastolic blood pressure 76 mm[Hg] Chantell Cruz MD Work Phone: [facility] 04-14-2025 11:18-0400 Heart rate 76 /min Chantell Cruz MD Work Phone: [facility] 04-14-2025 11:18-0400 Systolic blood pressure 113 mm[Hg] Chantell Cruz MD Work Phone: [facility] 04-05-2025 16:46-0400 Body height 163.32 cm Katarina Stevens [employer] Work Phone: [facility] 03-14-2025 15:48-0400 Body mass index (BMI) [Ratio] 30.1 kg/m2 Katarina Stevens [employer] Work Phone: [facility] 03-14-2025 15:48-0400 Body temperature 97.7 [degF] Katarinatim Stevens [employer] Work Phone: [facility] 03-14-2025 15:48-0400 Body weight 80.28 kg Katarina Stevens [employer] Work Phone: [facility] 03-14-2025 15:48-0400 Diastolic blood pressure 60 mm[Hg] Katarinatim Stevens [employer] Work Phone: [facility] 03-14-2025 15:48-0400 Heart rate 71 /min Katarinatim Stevens [employer] Work Phone: [facility] 03-14-2025 15:48-0400 Respiratory rate 18 /min Katarina Stevens [employer] Work Phone: [facility] 03-14-2025 15:48-0400 SaO2% (BldA) [Mass fraction] 97 % Katarinatim Stevens [employer] Work Phone: [facility] 03-14-2025 15:48-0400 Systolic blood pressure 130 mm[Hg] Katarina Stevens [employer] Work Phone: [facility] 02-28-2025 16:28-0400 Body height 163.32 cm Katarina Stevens [employer] Work Phone: [facility] 02-28-2025 16:28-0400 Body mass index (BMI) [Ratio] 29.9 kg/m2 Katarina Stevens [employer] Work Phone: [facility] 02-28-2025 16:28-0400 Body temperature 79.9 [degF] Katarina Stevens [employer] Work Phone: [facility] 02-28-2025 16:28-0400 Body weight 79.83 kg Katarina Stevens [employer] Work Phone: [facility] 02-28-2025 16:28-0400 Diastolic blood pressure 60 mm[Hg] Katarina Stevens [employer] Work Phone: [facility] 02-28-2025 16:28-0400 Heart rate 78 /min Katarina Stevens [employer] Work Phone: [facility] 02-28-2025 16:28-0400 Respiratory rate 18 /min Katarina Stevens [employer] Work Phone: [facility] 02-28-2025 16:28-0400 SaO2% (BldA) [Mass fraction] 98 % Katarina Stevens [employer] Work Phone: [facility] 02-28-2025 16:28-0400 Systolic blood pressure 128 mm[Hg] Katarina Stevens [employer] Work Phone: [facility] 02-10-2025 13:34-0400 Body height 165.1 cm Chantell Cruz MD Work Phone: [facility] 02-10-2025 13:34-0400 Body mass index (BMI) [Ratio] 29.12 kg/m2 Chantell Cruz MD Work Phone: [facility] 02-10-2025 13:34-0400 Body weight 79.38 kg Chantell Cruz MD Work Phone: [facility] 02-10-2025 13:34-0400 Diastolic blood pressure 81 mm[Hg] Chantell Cruz MD Work Phone: [facility] 02-10-2025 13:34-0400 Heart rate 87 /min Chantell Cruz MD Work Phone: [facility] 02-10-2025 13:34-0400 Systolic blood pressure 131 mm[Hg] Chantell Cruz MD Work Phone: [facility] 02-03-2025 10:08-0400 Body temperature 97.9 [degF] Chantell Cruz MD Work Phone: [facility] 02-03-2025 10:08-0400 Diastolic blood pressure 75 mm[Hg] Chantell Cruz MD Work Phone: [facility] 02-03-2025 10:08-0400 Heart rate 64 /min Chantell Cruz MD Work Phone: [facility] 02-03-2025 10:08-0400 Respiratory rate 16 /min Chantell Cruz MD Work Phone: [facility] 02-03-2025 10:08-0400 SaO2% (BldA) [Mass fraction] 98 % Chantell Cruz MD Work Phone: [facility] 02-03-2025 10:08-0400 Systolic blood pressure 136 mm[Hg] Chantell Cruz MD Work Phone: [facility] 01-20-2025 13:26-0400 Body temperature 97.7 [degF] Chantell Cruz MD Work Phone: [facility] 01-20-2025 13:26-0400 Diastolic blood pressure 79 mm[Hg] Chantell Cruz MD Work Phone: [facility] 01-20-2025 13:26-0400 Heart rate 73 /min Chantell Cruz MD Work Phone: [facility] 01-20-2025 13:26-0400 Respiratory rate 16 /min Chantell Cruz MD Work Phone: [facility] 01-20-2025 13:26-0400 SaO2% (BldA) [Mass fraction] 91 % Chantell Cruz MD Work Phone: [facility] 01-20-2025 13:26-0400 Systolic blood pressure 132 mm[Hg] Chantell Cruz MD Work Phone: [facility] 01-20-2025 12:56-0400 Body height 165.1 cm Chantell Cruz MD Work Phone: [facility] 01-20-2025 12:56-0400 Body mass index (BMI) [Ratio] 29.29 kg/m2 Chantell Cruz MD Work Phone: [facility] 01-20-2025 12:56-0400 Body weight 79.83 kg Chantell Cruz MD Work Phone: [facility] 01-04-2025 20:20-0400 Body height 163.32 cm Katarina Stevens [employer] Work Phone: [facility] 01-04-2025 20:20-0400 Body mass index (BMI) [Ratio] 29.9 kg/m2 Katarina Stevens [employer] Work Phone: [facility] 01-04-2025 20:20-0400 Body temperature 98.2 [degF] Katarina Stevens [employer] Work Phone: [facility] 01-04-2025 20:20-0400 Body weight 79.83 kg Katarina Stevens [employer] Work Phone: [facility] 01-04-2025 20:20-0400 Diastolic blood pressure 60 mm[Hg] Katarina Stevens [employer] Work Phone: [facility] 01-04-2025 20:20-0400 Heart rate 86 /min Katarina Stevens [employer] Work Phone: [facility] 01-04-2025 20:20-0400 Respiratory rate 18 /min Katarina Stevens [employer] Work Phone: [facility] 01-04-2025 20:20-0400 SaO2% (BldA) [Mass fraction] 96 % Katarina Stevens [employer] Work Phone: [facility] 01-04-2025 20:20-0400 Systolic blood pressure 120 mm[Hg] Katarina Stevens [employer] Work Phone: [facility] 12-30-2024 15:58-0400 Body height 165.1 cm Chantell Cruz MD Work Phone: [facility] 12-30-2024 15:58-0400 Body mass index (BMI) [Ratio] 29.29 kg/m2 Chantell Cruz MD Work Phone: [facility] 12-30-2024 15:58-0400 Body weight 79.83 kg Chantell Cruz MD Work Phone: [facility] 12-30-2024 15:58-0400 Diastolic blood pressure 78 mm[Hg] Chantell Cruz MD Work Phone: [facility] 12-30-2024 15:58-0400 Heart rate 84 /min Chantell Cruz MD Work Phone: [facility] 12-30-2024 15:58-0400 Systolic blood pressure 120 mm[Hg] Chantell Cruz MD Work Phone: [facility] 12-26-2024 09:40-0400 Diastolic blood pressure 73 mm[Hg] Prema Garcia MD Work Phone: [facility] 12-26-2024 09:40-0400 Heart rate 72 /min Prema Garcia MD Work Phone: [facility] 12-26-2024 09:40-0400 SaO2% (BldA) [Mass fraction] 97 % Prema Garcia MD Work Phone: [facility] 12-26-2024 09:40-0400 Systolic blood pressure 122 mm[Hg] Prema Garcia MD Work Phone: [facility] 12-26-2024 09:23-0400 Body temperature 97.11 [degF] Prema Garcia MD Work Phone: [facility] 12-26-2024 09:23-0400 Respiratory rate 16 /min Prema Garcia MD Work Phone: [facility] 12-26-2024 08:18-0400 Body height 165.1 cm Prema Garcia MD Work Phone: [facility] 12-26-2024 08:18-0400 Body mass index (BMI) [Ratio] 27.46 kg/m2 Prema Garcia MD Work Phone: [facility] 12-26-2024 08:18-0400 Body weight 74.84 kg Prema Garcia MD Work Phone: [facility] 12-08-2024 20:04-0500 Body height 163.32 cm Katarina Stevens [employer] Work Phone: [facility] 12-08-2024 20:04-0500 Body mass index (BMI) [Ratio] 29.2 kg/m2 Katarina Stevens [employer] Work Phone: [facility] 12-08-2024 20:04-0500 Body temperature 97.3 [degF] Katarina Stevens [employer] Work Phone: [facility] 12-08-2024 20:04-0500 Body weight 78.01 kg Katarina Stevens [employer] Work Phone: [facility] 12-08-2024 20:04-0500 Diastolic blood pressure 68 mm[Hg] Katarina Stevens [employer] Work Phone: [facility] 12-08-2024 20:04-0500 Heart rate 91 /min Katarina Stevens [employer] Work Phone: [facility] 12-08-2024 20:04-0500 Respiratory rate 18 /min Katarina Stevens [employer] Work Phone: [facility] 12-08-2024 20:04-0500 SaO2% (BldA) [Mass fraction] 97 % Katarina Stevens [employer] Work Phone: [facility] 12-08-2024 20:04-0500 Systolic blood pressure 128 mm[Hg] Katarina Stevens [employer] Work Phone: [facility] 11-21-2024 08:45-0500 Diastolic blood pressure 67 mm[Hg] Prema Garcia MD Work Phone: [facility] 11-21-2024 08:45-0500 Heart rate 61 /min Prema Garcia MD Work Phone: [facility] 11-21-2024 08:45-0500 SaO2% (BldA) [Mass fraction] 95 % Prema Garcia MD Work Phone: [facility] 11-21-2024 08:45-0500 Systolic blood pressure 126 mm[Hg] Prema Garcia MD Work Phone: [facility] 11-21-2024 08:30-0500 Body temperature 97 [degF] Prema Garcia MD Work Phone: [facility] 11-21-2024 08:30-0500 Respiratory rate 16 /min Prema Garcia MD Work Phone: [facility] 09-29-2024 12:31-0500 Body mass index (BMI) [Ratio] 29.2 kg/m2 Katarina Stevens [employer] Work Phone: [facility] 09-29-2024 12:31-0500 Body temperature 97.9 [degF] Katarina Stevens [employer] Work Phone: [facility] 09-29-2024 12:31-0500 Body weight 78.01 kg Katarina Stevens [employer] Work Phone: [facility] 09-29-2024 12:31-0500 Diastolic blood pressure 60 mm[Hg] Katarina Stevens [employer] Work Phone: [facility] 09-29-2024 12:31-0500 Heart rate 99 /min Katarinatim Stevens [employer] Work Phone: [facility] 09-29-2024 12:31-0500 Respiratory rate 18 /min Katarinatim JoyaStevens [employer] Work Phone: [facility] 09-29-2024 12:31-0500 SaO2% (BldA) [Mass fraction] 96 % Katarinatim Stevens [employer] Work Phone: [facility] 09-29-2024 12:31-0500 Systolic blood pressure 115 mm[Hg] Katarinatim Stevens [employer] Work Phone: [facility] 09-13-2024 10:49-0500 Body mass index (BMI) [Ratio] 29.4 kg/m2 Katarinatim Stevens [employer] Work Phone: [facility] 09-13-2024 10:49-0500 Body temperature 97.9 [degF] Katarinatim JoyaStevens [employer] Work Phone: [facility] 09-13-2024 10:49-0500 Body weight 78.47 kg Katarinatim Stevens [employer] Work Phone: [facility] 09-13-2024 10:49-0500 Diastolic blood pressure 60 mm[Hg] Katarina Stevens [employer] Work Phone: [facility] 09-13-2024 10:49-0500 Heart rate 87 /min Katarinatim JoyaStevens [employer] Work Phone: [facility] 09-13-2024 10:49-0500 Respiratory rate 18 /min Katarinatim JoyaStevens [employer] Work Phone: [facility] 09-13-2024 10:49-0500 SaO2% (BldA) [Mass fraction] 96 % Katarinatim Stevens [employer] Work Phone: [facility] 09-13-2024 10:49-0500 Systolic blood pressure 116 mm[Hg] Katarinatim Stevens [employer] Work Phone: [facility] 07-06-2024 09:19-0400 Body height 165.1 cm Katarina Stevens Work Phone: [facility] 07-06-2024 09:19-0400 Body mass index (BMI) [Ratio] 28.29 kg/m2 Katarina Steevns Work Phone: [facility] 07-06-2024 09:19-0400 Body weight 77.11 kg Katarina Stevens Work Phone: [facility] 01-27-2024 15:23-0400 Body height 164.34 cm [facility] 01-27-2024 15:23-0400 Body mass index (BMI) [Ratio] 28.3 kg/m2 [facility] 01-27-2024 15:23-0400 Body temperature 97.7 [degF] [facility] 01-27-2024 15:23-0400 Body weight 76.65 kg [facility] 01-27-2024 15:23-0400 Diastolic blood pressure 70 mm[Hg] [facility] 01-27-2024 15:23-0400 Heart rate 80 /min [facility] 01-27-2024 15:23-0400 Respiratory rate 18 /min [facility] 01-27-2024 15:23-0400 SaO2% (BldA) [Mass fraction] 97 % [facility] 01-27-2024 15:23-0400 Systolic blood pressure 148 mm[Hg] [facility] 10-23-2023 14:48-0500 Body height 165.1 cm Chantell Cruz MD Work Phone: [facility] 10-23-2023 14:48-0500 Body mass index (BMI) [Ratio] 27.62 kg/m2 Chantell Cruz MD Work Phone: [facility] 10-23-2023 14:48-0500 Body weight 75.3 kg Chantell Cruz MD Work Phone: [facility] 10-23-2023 14:48-0500 Diastolic blood pressure 81 mm[Hg] Chantell Cruz MD Work Phone: [facility] 10-23-2023 14:48-0500 Systolic blood pressure 136 mm[Hg] Chantell Cruz MD Work Phone: [facility] 10-05-2023 16:16-0500 Body height 164.34 cm [facility] 10-05-2023 16:16-0500 Body mass index (BMI) [Ratio] 28 kg/m2 [facility] 10-05-2023 16:16-0500 Body temperature 97.7 [degF] [facility] 10-05-2023 16:16-0500 Body weight 75.74 kg [facility] 10-05-2023 16:16-0500 Diastolic blood pressure 70 mm[Hg] [facility] 10-05-2023 16:16-0500 Heart rate 91 /min [facility] 10-05-2023 16:16-0500 Respiratory rate 18 /min [facility] 10-05-2023 16:16-0500 SaO2% (BldA) [Mass fraction] 96 % [facility] 10-05-2023 16:16-0500 Systolic blood pressure 120 mm[Hg] [facility] 09-08-2023 10:33-0500 Body mass index (BMI) [Ratio] 28 kg/m2 [facility] 09-08-2023 10:33-0500 Body temperature 97.7 [degF] [facility] 09-08-2023 10:33-0500 Body weight 75.74 kg [facility] 09-08-2023 10:33-0500 Diastolic blood pressure 70 mm[Hg] [facility] 09-08-2023 10:33-0500 Heart rate 97 /min [facility] 09-08-2023 10:33-0500 Respiratory rate 18 /min [facility] 09-08-2023 10:33-0500 SaO2% (BldA) [Mass fraction] 97 % [facility] 09-08-2023 10:33-0500 Systolic blood pressure 115 mm[Hg] [facility] 08-11-2023 09:54-0400 Body height 165.1 cm Ba Hull MD Work Phone: [facility] 08-11-2023 09:54-0400 Body mass index (BMI) [Ratio] 27.62 kg/m2 Ba Hull MD Work Phone: [facility] 08-11-2023 09:54-0400 Body weight 75.3 kg Ba Hull MD Work Phone: [facility] 08-11-2023 07:50-0400 Diastolic blood pressure 88 mm[Hg] Ba Hull MD Work Phone: [facility] 08-11-2023 07:50-0400 Heart rate 75 /min Ba Hull MD Work Phone: [facility] 08-11-2023 07:50-0400 Systolic blood pressure 148 mm[Hg] Ba Hull MD Work Phone: [facility] 07-31-2023 09:43-0400 Diastolic blood pressure 76 mm[Hg] Ba Hull MD Work Phone: [facility] 07-31-2023 09:43-0400 Heart rate 76 /min Ba Hull MD Work Phone: [facility] 07-31-2023 09:43-0400 SaO2% (BldA) [Mass fraction] 97 % Ba Hull MD Work Phone: [facility] 07-31-2023 09:43-0400 Systolic blood pressure 118 mm[Hg] Ba Hull MD Work Phone: [facility] 07-31-2023 08:59-0400 Body height 165.1 cm Ba Hull MD Work Phone: [facility] 07-31-2023 08:59-0400 Body mass index (BMI) [Ratio] 27.69 kg/m2 Ba Hull MD Work Phone: [facility] 07-31-2023 08:59-0400 Body weight 75.48 kg Ba Hull MD Work Phone: [facility] 07-31-2023 08:59-0400 Respiratory rate 16 /min Ba Hull MD Work Phone: [facility] 06-12-2023 16:48-0400 Body height 164.34 cm [facility] 06-12-2023 16:48-0400 Body mass index (BMI) [Ratio] 27.8 kg/m2 [facility] 06-12-2023 16:48-0400 Body temperature 97.9 [degF] [facility] 06-12-2023 16:48-0400 Body weight 75.29 kg [facility] 06-12-2023 16:48-0400 Diastolic blood pressure 70 mm[Hg] [facility] 06-12-2023 16:48-0400 Heart rate 89 /min [facility] 06-12-2023 16:48-0400 Respiratory rate 18 /min [facility] 06-12-2023 16:48-0400 SaO2% (BldA) [Mass fraction] 96 % [facility] 06-12-2023 16:48-0400 Systolic blood pressure 138 mm[Hg] [facility] 06-10-2023 09:32-0400 Body height 165.1 cm Tram Sampson MD Work Phone: [facility] 06-10-2023 09:32-0400 Body weight 75.75 kg Tram Sampson MD Work Phone: [facility] 06-10-2023 09:32-0400 Diastolic blood pressure 70 mm[Hg] Tram Sampson MD Work Phone: [facility] 06-10-2023 09:32-0400 Systolic blood pressure 118 mm[Hg] Tram Sampson MD Work Phone: [facility] 04-16-2023 18:49-0400 Body height 164.34 cm [facility] 04-16-2023 18:49-0400 Body mass index (BMI) [Ratio] 27.8 kg/m2 [facility] 04-16-2023 18:49-0400 Body weight 75.29 kg [facility] 04-16-2023 18:49-0400 Diastolic blood pressure 60 mm[Hg] [facility] 04-16-2023 18:49-0400 Systolic blood pressure 120 mm[Hg] [facility] 03-30-2023 14:50-0400 Body height 164.34 cm [facility] 02-25-2023 15:28-0400 Body height 164.34 cm [facility] 02-25-2023 15:28-0400 Body mass index (BMI) [Ratio] 27.7 kg/m2 [facility] 02-25-2023 15:28-0400 Body temperature 97.5 [degF] [facility] 02-25-2023 15:28-0400 Body weight 74.84 kg [facility] 02-25-2023 15:28-0400 Diastolic blood pressure 70 mm[Hg] [facility] 02-25-2023 15:28-0400 Heart rate 74 /min [facility] 02-25-2023 15:28-0400 Respiratory rate 18 /min [facility] 02-25-2023 15:28-0400 SaO2% (BldA) [Mass fraction] 99 % [facility] 02-25-2023 15:28-0400 Systolic blood pressure 118 mm[Hg] [facility] 02-02-2023 16:12-0400 Body height 164.34 cm [facility] 02-02-2023 16:12-0400 Body mass index (BMI) [Ratio] 27.5 kg/m2 [facility] 02-02-2023 16:12-0400 Body temperature 97.5 [degF] [facility] 02-02-2023 16:12-0400 Body weight 74.38 kg [facility] 02-02-2023 16:12-0400 Diastolic blood pressure 70 mm[Hg] [facility] 02-02-2023 16:12-0400 Heart rate 79 /min [facility] 02-02-2023 16:12-0400 Respiratory rate 18 /min [facility] 02-02-2023 16:12-0400 SaO2% (BldA) [Mass fraction] 98 % [facility] 02-02-2023 16:12-0400 Systolic blood pressure 124 mm[Hg] [facility] 12-04-2022 11:52-0500 Body mass index (BMI) [Ratio] 28.2 kg/m2 [facility] 12-04-2022 11:52-0500 Body temperature 97.7 [degF] [facility] 12-04-2022 11:52-0500 Body weight 76.2 kg [facility] 12-04-2022 11:52-0500 Diastolic blood pressure 60 mm[Hg] [facility] 12-04-2022 11:52-0500 Heart rate 77 /min [facility] 12-04-2022 11:52-0500 Respiratory rate 18 /min [facility] 12-04-2022 11:52-0500 SaO2% (BldA) [Mass fraction] 96 % [facility] 12-04-2022 11:52-0500 Systolic blood pressure 120 mm[Hg] [facility] 11-13-2022 17:34-0500 Body mass index (BMI) [Ratio] 27.7 kg/m2 [facility] 11-13-2022 17:34-0500 Body temperature 97.2 [degF] [facility] 11-13-2022 17:34-0500 Body weight 74.84 kg [facility] 11-13-2022 17:34-0500 Diastolic blood pressure 70 mm[Hg] [facility] 11-13-2022 17:34-0500 Heart rate 83 /min [facility] 11-13-2022 17:34-0500 Respiratory rate 18 /min [facility] 11-13-2022 17:34-0500 SaO2% (BldA) [Mass fraction] 96 % [facility] 11-13-2022 17:34-0500 Systolic blood pressure 120 mm[Hg] [facility] 09-16-2022 14:50-0500 Body height 164.34 cm [facility] Work Phone: 09-16-2022 14:50-0500 Body mass index (BMI) [Ratio] 28.2 kg/m2 [facility] Work Phone: 09-16-2022 14:50-0500 Body temperature 96.4 [degF] [facility] Work Phone: 09-16-2022 14:50-0500 Body weight 76.2 kg [facility] Work Phone: 09-16-2022 14:50-0500 Diastolic blood pressure 70 mm[Hg] [facility] Work Phone: 09-16-2022 14:50-0500 Heart rate 89 /min [facility] Work Phone: 09-16-2022 14:50-0500 Respiratory rate 18 /min [facility] Work Phone: 09-16-2022 14:50-0500 SaO2% (BldA) [Mass fraction] 97 % [facility] Work Phone: 09-16-2022 14:50-0500 Systolic blood pressure 136 mm[Hg] [facility] Work Phone: 07-24-2022 19:41-0400 Body mass index (BMI) [Ratio] 27.8 kg/m2 [facility] Work Phone: 07-24-2022 19:41-0400 Body temperature 97.5 [degF] [facility] Work Phone: 07-24-2022 19:41-0400 Body weight 75.29 kg [facility] Work Phone: 07-24-2022 19:41-0400 Diastolic blood pressure 84 mm[Hg] [facility] Work Phone: 07-24-2022 19:41-0400 Heart rate 82 /min [facility] Work Phone: 07-24-2022 19:41-0400 Respiratory rate 18 /min [facility] Work Phone: 07-24-2022 19:41-0400 SaO2% (BldA) [Mass fraction] 96 % [facility] Work Phone: 07-24-2022 19:41-0400 Systolic blood pressure 140 mm[Hg] [facility] Work Phone: 06-11-2022 15:08-0400 Body height 164.34 cm [facility] Work Phone: 06-11-2022 15:08-0400 Body mass index (BMI) [Ratio] 27.8 kg/m2 [facility] Work Phone: 06-11-2022 15:08-0400 Body temperature 97.5 [degF] [facility] Work Phone: 06-11-2022 15:08-0400 Body weight 75.29 kg [facility] Work Phone: 06-11-2022 15:08-0400 Diastolic blood pressure 80 mm[Hg] [facility] Work Phone: 06-11-2022 15:08-0400 Heart rate 92 /min [facility] Work Phone: 06-11-2022 15:08-0400 Respiratory rate 18 /min [facility] Work Phone: 06-11-2022 15:08-0400 SaO2% (BldA) [Mass fraction] 97 % [facility] Work Phone: 06-11-2022 15:08-0400 Systolic blood pressure 140 mm[Hg] [facility] Work Phone: 04-16-2022 14:40-0400 Body height 164.34 cm [facility] Work Phone: 04-16-2022 14:40-0400 Body mass index (BMI) [Ratio] 28 kg/m2 [facility] Work Phone: 04-16-2022 14:40-0400 Body temperature 97.9 [degF] [facility] Work Phone: 04-16-2022 14:40-0400 Body weight 75.74 kg [facility] Work Phone: 04-16-2022 14:40-0400 Diastolic blood pressure 70 mm[Hg] [facility] Work Phone: 04-16-2022 14:40-0400 Heart rate 84 /min [facility] Work Phone: 04-16-2022 14:40-0400 Respiratory rate 18 /min [facility] Work Phone: 04-16-2022 14:40-0400 SaO2% (BldA) [Mass fraction] 95 % [facility] Work Phone: 04-16-2022 14:40-0400 Systolic blood pressure 122 mm[Hg] [facility] Work Phone: 03-07-2022 18:46-0400 Body mass index (BMI) [Ratio] 28.2 kg/m2 [facility] Work Phone: 03-07-2022 18:46-0400 Body temperature 97.3 [degF] [facility] Work Phone: 03-07-2022 18:46-0400 Body weight 76.2 kg [facility] Work Phone: 03-07-2022 18:46-0400 Diastolic blood pressure 60 mm[Hg] [facility] Work Phone: 03-07-2022 18:46-0400 Heart rate 83 /min [facility] Work Phone: 03-07-2022 18:46-0400 Respiratory rate 18 /min [facility] Work Phone: 03-07-2022 18:46-0400 SaO2% (BldA) [Mass fraction] 18 % [facility] Work Phone: 03-07-2022 18:46-0400 Systolic blood pressure 110 mm[Hg] [facility] Work Phone: 03-07-2022 18:46-0400 Body height 164.34 cm [facility] Work Phone: 03-07-2022 18:46-0400 Body mass index (BMI) [Ratio] 28.2 kg/m2 [facility] Work Phone: 03-07-2022 18:46-0400 Body temperature 97.3 [degF] [facility] Work Phone: 03-07-2022 18:46-0400 Body weight 76.2 kg [facility] Work Phone: 03-07-2022 18:46-0400 Diastolic blood pressure 60 mm[Hg] [facility] Work Phone: 03-07-2022 18:46-0400 Heart rate 83 /min [facility] Work Phone: 03-07-2022 18:46-0400 Respiratory rate 18 /min [facility] Work Phone: 03-07-2022 18:46-0400 SaO2% (BldA) [Mass fraction] 18 % [facility] Work Phone: 03-07-2022 18:46-0400 Systolic blood pressure 110 mm[Hg] [facility] Work Phone: 02-17-2022 16:17-0400 Body mass index (BMI) [Ratio] 28.2 kg/m2 [facility] Work Phone: 02-17-2022 16:17-0400 Body temperature 97.9 [degF] [facility] Work Phone: 02-17-2022 16:17-0400 Body weight 76.2 kg [facility] Work Phone: 02-17-2022 16:17-0400 Diastolic blood pressure 70 mm[Hg] [facility] Work Phone: 02-17-2022 16:17-0400 Heart rate 85 /min [facility] Work Phone: 02-17-2022 16:17-0400 Respiratory rate 18 /min [facility] Work Phone: 02-17-2022 16:17-0400 SaO2% (BldA) [Mass fraction] 97 % [facility] Work Phone: 02-17-2022 16:17-0400 Systolic blood pressure 122 mm[Hg] [facility] Work Phone: 02-17-2022 16:17-0400 Body mass index (BMI) [Ratio] 28.2 kg/m2 [facility] Work Phone: 02-17-2022 16:17-0400 Body temperature 97.9 [degF] [facility] Work Phone: 02-17-2022 16:17-0400 Body weight 76.2 kg [facility] Work Phone: 02-17-2022 16:17-0400 Diastolic blood pressure 70 mm[Hg] [facility] Work Phone: 02-17-2022 16:17-0400 Heart rate 85 /min [facility] Work Phone: 02-17-2022 16:17-0400 Respiratory rate 18 /min [facility] Work Phone: 02-17-2022 16:17-0400 SaO2% (BldA) [Mass fraction] 97 % [facility] Work Phone: 02-17-2022 16:17-0400 Systolic blood pressure 122 mm[Hg] [facility] Work Phone: 01-21-2022 17:02-0400 Body mass index (BMI) [Ratio] 28.5 kg/m2 [facility] Work Phone: 01-21-2022 17:02-0400 Body temperature 97.3 [degF] [facility] Work Phone: 01-21-2022 17:02-0400 Body weight 77.11 kg [facility] Work Phone: 01-21-2022 17:02-0400 Diastolic blood pressure 70 mm[Hg] [facility] Work Phone: 01-21-2022 17:02-0400 Heart rate 93 /min [facility] Work Phone: 01-21-2022 17:02-0400 Respiratory rate 18 /min [facility] Work Phone: 01-21-2022 17:02-0400 SaO2% (BldA) [Mass fraction] 98 % [facility] Work Phone: 01-21-2022 17:02-0400 Systolic blood pressure 130 mm[Hg] [facility] Work Phone: 01-21-2022 17:02-0400 Body mass index (BMI) [Ratio] 28.5 kg/m2 [facility] Work Phone: 01-21-2022 17:02-0400 Body temperature 97.3 [degF] [facility] Work Phone: 01-21-2022 17:02-0400 Body weight 77.11 kg [facility] Work Phone: 01-21-2022 17:02-0400 Diastolic blood pressure 70 mm[Hg] [facility] Work Phone: 01-21-2022 17:02-0400 Heart rate 93 /min [facility] Work Phone: 01-21-2022 17:02-0400 Respiratory rate 18 /min [facility] Work Phone: 01-21-2022 17:02-0400 SaO2% (BldA) [Mass fraction] 98 % [facility] Work Phone: 01-21-2022 17:02-0400 Systolic blood pressure 130 mm[Hg] [facility] Work Phone: 12-06-2021 15:47-0500 Body mass index (BMI) [Ratio] 28.2 kg/m2 [facility] Work Phone: 12-06-2021 15:47-0500 Body temperature 97.3 [degF] [facility] Work Phone: 12-06-2021 15:47-0500 Body weight 76.2 kg [facility] Work Phone: 12-06-2021 15:47-0500 Diastolic blood pressure 74 mm[Hg] [facility] Work Phone: 12-06-2021 15:47-0500 Heart rate 90 /min [facility] Work Phone: 12-06-2021 15:47-0500 Respiratory rate 18 /min [facility] Work Phone: 12-06-2021 15:47-0500 SaO2% (BldA) [Mass fraction] 97 % [facility] Work Phone: 12-06-2021 15:47-0500 Systolic blood pressure 122 mm[Hg] [facility] Work Phone: 02-25-2021 08:30-0400 Body temperature 97.7 [degF] Chantell Cruz MD Work Phone: [facility] Work Phone: 02-25-2021 08:30-0400 Diastolic blood pressure 80 mm[Hg] Chantell Cruz MD Work Phone: [facility] Work Phone: 02-25-2021 08:30-0400 Heart rate 74 /min Chantell Cruz MD Work Phone: [facility] Work Phone: 8 08:30-0400 Respiratory rate 14 /min Chantell Cruz MD Work Phone: [facility] Work Phone: 02-25-2021 08:30-0400 SaO2% (BldA) [Mass fraction] 94 % Chantell Cruz MD Work Phone: [facility] Work Phone: 02-25-2021 08:30-0400 Systolic blood pressure 142 mm[Hg] Chantell Cruz MD Work Phone: [facility] Work Phone: 02-25-2021 07:16-0400 Body height 165.1 cm Chantell Cruz MD Work Phone: [facility] Work Phone: 02-25-2021 07:16-0400 Body mass index (BMI) [Ratio] 28.29 kg/m2 Chantell Cruz MD Work Phone: [facility] Work Phone: 02-25-2021 07:16-0400 Body weight 77.11 kg Chantell Cruz MD Work Phone: [facility] Work Phone: 01-16-2021 09:10-0400 BP Diastolic 70 mm[Hg] Bridget LOZOYA Work Phone: 01-16-2021 09:10-0400 BP Systolic 135 mm[Hg] Bridget LOZOYA Work Phone: 01-16-2021 09:10-0400 Pulse (Heart Rate) 92 /min Bridget LOZOYA Work Phone: 01-16-2021 09:10-0400 Pulse Oximetry 96 % Bridget LOZOYA Work Phone: 01-16-2021 09:10-0400 Respiratory Rate 16 /min Bridget LOZOYA Work Phone: 01-16-2021 08:14-0400 BMI (Body Mass Index) 27.46 kg/m2 Bridget LOZOYA Work Phone: 01-16-2021 08:14-0400 Body Temperature 97.3 [degF] Bridget LOZOYA Work Phone: 01-16-2021 08:14-0400 Body weight 74.84 kg Bridget LOZOYA Work Phone: 01-16-2021 08:14-0400 Height 165.1 cm Bridget LOZOYA Work Phone: 09-10-2020 08:55-0500 BP [facility] 76 mm[facility]Hg[facility] [place] [facility] 08:55-0500 BP Systolic 132 mm[facility]Hg[facility] [place] [facility] 08:55-0500 Pulse (Heart Rate) 66 /min Chantell [facility], [place] 09-10-2020 08:55-0500 Pulse Oximetry 99 % [facility] , [place] 09-10-2020 08:55-0500 Respiratory Rate 16 /[facility] [place] [facility]-10-2020 07:21-0500 BMI (Body Mass Index) 27.12 kg/m2 [facility] [place] [facility]-10-2020 07:21-0500 [facility] [place] [facility]-10-[facility] 07:21-0500 Height [facility].1 [facility] [place] 09-10-[facility] 07:19-0500 Body Temperature 97.5 [degF] [facility] [place] 05-20-2017 10:00-0400 BMI (Body Mass Index) 26.52 kg/m2 [facility] Work Phone: 05-20-2017 10:00-0400 BP Diastolic 60 mm[Hg] [facility] Work Phone: 05-20-2017 10:00-0400 BP Systolic 120 mm[Hg] [facility] Work Phone: 05-20-2017 10:00-0400 Height 165.1 cm [facility] Work Phone: 05-20-2017 10:00-0400 Pulse (Heart Rate) 68 /min [facility] Work Phone: 05-20-2017 10:00-0400 Respiratory Rate 20 /min [facility] Work Phone: 05-20-2017 10:00-0400 Weight 72.3 kg [facility] Work Phone: Encounters Encounter Date Encounter Type Care Provider Facility Start: 04-14-2025 End: 04-14-2025 Office outpatient visit 25 minutes Chantell Cruz MD Work Phone: [facility] Comment on above: Lumbar facet arthrop athy (Primary Dx) Start: 04-14-2025 End: 04-14-2025 ambulatory CHANTELL [facility] Start: 04-05-2025 End: 04-05-2025 ambulatory Katarina Stevens [facility] Work Phone: [facility] Work Phone: Start: 04-05-2025 End: 04-05-2025 Patient encounter procedure Katarina Stevens [facility] -Laboratory Specimen Work Phone: Start: 04-05-2025 End: 04-05-2025 ambulatory Katarina Stevens [facility] Facility:[facility] Start: 03-23-2025 End: 03-28-2025 Telephone encounter Chantell Cruz MD Work Phone: [facility] Clinical Communication Comment on above: Other (PT order) Start: 02-28-2025 End: 02-28-2025 ambulatory Katarina Stevens [facility] Work Phone: [facility] Work Phone: Start: 02-28-2025 End: 02-28-2025 Patient encounter procedure Katarina Stevens [facility] -Laboratory Specimen Work Phone: Start: 02-28-2025 End: 02-28-2025 ambulatory Katarina Stevens [facility] Facility:[facility] Start: 02-10-2025 End: 02-10-2025 Office outpatient visit 25 minutes Chantell Cruz MD Work Phone: [facility] Comment on above: Chronic bilateral lo w back pain without sciatica (Primary Dx); Lumbar facet arthropathy; Postlaminectomy syndrome, lumbar region Start: 02-10-2025 End: 02-10-2025 ambulatory [facility] Start: 02-03-2025 End: 02-03-2025 Subsequent hospital visit by physician Chantell Cruz MD Work Phone: [facility] Comment on above: Lumbar back pain Start: 02-03-2025 End: 02-03-2025 [facility] Start: 02-01-2025 End: 02-01-2025 ambulatory Polina Carpio MED SURG NURSE - [facility] Work Phone: [facility] Start: 01-23-2025 End: 01-23-2025 Telephone encounter Chantell Cruz MD Work Phone: [facility] Comment on above: Other (Follow up pro cedure) Start: 01-20-2025 End: 01-20-2025 Subsequent hospital visit by physician Chantell Cruz MD Work Phone: [facility] Start: 01-20-2025 End: 01-20-2025 ambulatory [facility] Start: 01-20-2025 End: 01-20-2025 Subsequent hospital visit by physician [facility] Comment on above: Lumbar back pain Start: 01-17-2025 End: 01-17-2025 ambulatory Polina F Balaji MED SURG NURSE - SHOE [facility] Work Phone: [facility] Start: 01-04-2025 End: 01-04-2025 ambulatory Katarina Stevens [facility] Work Phone: [facility] Work Phone: Start: 01-04-2025 End: 01-04-2025 Patient encounter procedure Katarina Stevens [facility] -Laboratory, Specimen Work Phone: Start: 01-04-2025 End: 01-04-2025 ambulatory Katarina Stevens [facility]OG Facility:[facility] Start: 12-30-2024 End: 12-30-2024 Office outpatient visit 25 minutes Chantell Cruz MD Work Phone: [facility] Comment on above: Lumbar facet arthrop athy (Primary Dx) Start: 12-30-2024 End: 12-30-2024 ambulatory CHANTELL CRUZ [facility] Start: 12-26-2024 End: 12-26-2024 ambulatory [facility] Start: 12-26-2024 End: 12-26-2024 Subsequent hospital visit by physician Prema Garcia MD Work Phone: [facility] Start: 12-08-2024 End: 12-08-2024 ambulatory Katarina Stevens [facility] Work Phone: [facility] Work Phone: Start: 12-08-2024 End: 12-08-2024 Patient encounter procedure Katarina Stevens [facility] -Laboratory, Specimen Work Phone: Start: 12-08-2024 End: 12-08-2024 ambulatory Katarina Stevens [facility]OG Facility:[facility] Start: 11-21-2024 End: 11-21-2024 Anesthesia consultation No Anesthesiologist - Sb/Helen SANTIAGO Work Phone: [facility] Start: 11-21-2024 End: 11-21-2024 ambulatory [facility] Start: 11-21-2024 End: 11-21-2024 Subsequent hospital visit by physician Prema Garcia MD Work Phone: [facility] Start: 11-18-2024 End: 11-18-2024 Telephone encounter Prema Garcia MD Work Phone: [facility] Start: 11-14-2024 End: 11-14-2024 ambulatory PREMA GARCIA [facility] Start: 09-29-2024 End: 09-29-2024 Patient encounter procedure Katarina Stevens [facility] -Laboratory, Specimen Work Phone: Start: 09-29-2024 End: 09-29-2024 ambulatory Katarina Stevens [facility]OG Facility:[facility] Start: 07-06-2024 End: 07-06-2024 Subsequent hospital visit by physician Katarina Stevens Work Phone: [facility] Comment on above: Encounter for screen ing mammogram for malignant neoplasm of breast Start: 07-06-2024 End: 07-06-2024 ambulatory KATARINA STEVENS [facility] Start: 06-29-2024 End: 06-29-2024 ambulatory Katarina Stevens [facility]OG Facility:[facility] Start: 06-27-2024 End: 09-26-2024 Transcribe Orders Katarina Stevens Work Phone: [facility] Central Scheduling Comment on above: Encounter for screen ing mammogram for malignant neoplasm of breast (Primary Dx) Start: 01-27-2024 End: 01-27-2024 ambulatory [facility] Work Phone: Start: 01-27-2024 End: 01-27-2024 Patient encounter procedure [facility]-Laboratory, Specimen Work Phone: Start: 10-23-2023 End: 10-23-2023 Office outpatient visit 25 minutes Chantell Cruz MD Work Phone: [facility] Comment on above: Spondylosis without myelopathy or radiculopathy, lumbar region (Primary Dx); Postlaminectomy syndrome, lumbar region Start: 10-05-2023 End: 10-05-2023 ambulatory [facility] Work Phone: Start: 10-05-2023 End: 10-05-2023 Patient encounter procedure [facility]-Laboratory, Specimen Work Phone: Start: 09-09-2023 Non-patient / Non-visit [facility] Work Phone: Start: 09-08-2023 End: 09-08-2023 ambulatory [facility] Work Phone: Start: 09-08-2023 End: 09-08-2023 Patient encounter procedure [facility]Labor[facility], Specimen Work Phone: Start: 08-11-2023 End: 08-11-2023 Subsequent hospital visit by physician Ba Hull MD Work Phone: [facility] Non-Invasive Cardiology Comment on above: Dizziness Start: 08-11-2023 End: 08-11-2023 Subsequent hospital visit by physician Ba Hull MD Work Phone: [facility] Non-Invasive Cardiology Comment on above: Shortness of breath; Precordial chest pain Start: 07-31-2023 End: 07-31-2023 Office outpatient new 45 minutes Ba Hull MD Work Phone: [facility] Cardiology Comment on above: Dizziness (Primary D x); Encounter to establish care with new doctor; Shortness of breath; Essential hypertension; Precordial chest pain Start: 06-15-2023 Telephone encounter Tram Sampson MD Work Phone: [employer] Comment on above: Results Start: 06-10-2023 End: 06-10-2023 Female genitalia finding Tram Sampson MD Work Phone: [facility] Work Phone: Start: 06-10-2023 End: 06-10-2023 Patient encounter procedure Tram Sampson MD Work Phone: [employer] Comment on above: Gynecologic exam nor mal (Primary Dx); Cervical cancer screening; Breast cancer screening by mammogram; Screening for osteoporosis; Menopause Start: 05-20-2023 End: 05-20-2023 ambulatory Toan Lara MD Work Phone: [facility] Laboratory Comment on above: Arrived Abnormal levels of o ther serum enzymes (Primary Dx) Start: 05-20-2023 End: 05-20-2023 Subsequent hospital visit by physician Toan Lara MD Work Phone: [facility] Comment on above: Abnormal liver funct ion tests; Abnormal levels of other serum enzymes Start: 05-18-2023 Transcribe Orders Toan Lara MD Work Phone: [facility] Comment on above: Abnormal liver funct ion tests (Primary Dx); Abnormal levels of other serum enzymes Start: 04-16-2023 End: 04-16-2023 ambulatory [facility] Work Phone: Start: 04-16-2023 End: 04-16-2023 Patient encounter procedure [facility]-Laboratory, Specimen Work Phone: Start: 03-30-2023 End: 03-30-2023 ambulatory [facility] Work Phone: Start: 03-30-2023 End: 03-30-2023 Patient encounter procedure [facility]-Laboratory, Specimen Start: 02-26-2023 End: 02-26-2023 Patient encounter procedure [facility], Specimen Start: 02-25-2023 End: 02-25-2023 ambulatory [facility] Work Phone: Start: 02-25-2023 End: 02-25-2023 Patient encounter procedure [facility]Laboratory, Specimen Start: 02-02-2023 End: 02-02-2023 ambulatory [facility] Work Phone: Start: 02-02-2023 End: 02-02-2023 Patient encounter procedure [facility]Laboratory, Specimen Start: 11-11-2022 End: 11-11-2022 Transcribe Orders Katarina Stevens Work Phone: [facility] Laboratory Comment on above: Other enthesopathies , not elsewhere classified (Primary Dx) Other enthesopathies , not elsewhere classified Start: 09-16-2022 End: 09-16-2022 ambulatory [facility] Work Phone: Start: 09-16-2022 End: 09-16-2022 Patient encounter procedure [facility]Laboratory, Specimen Start: 08-29-2022 Transcribe Orders Shai soler MD Work Phone: [facility] Laboratory Comment on above: Chronic kidney disea se, stage 3b (HCC) (Primary Dx) Start: 06-11-2022 End: 06-11-2022 ambulatory [facility] Work Phone: Start: 06-11-2022 End: 06-11-2022 Patient encounter procedure [facility]-Laboratory, Specimen Start: 04-16-2022 End: 04-16-2022 Patient encounter procedure [facility], Specimen Start: 03-08-2022 End: 03-08-2022 Patient encounter procedure [facility], Specimen Start: 02-20-2022 End: 02-20-2022 Subsequent hospital visit by physician Percy Botello MD [facility] Laboratory Start: 02-25-2021 End: 02-25-2021 Subsequent hospital visit by physician Chantell Cruz MD Work Phone: [facility] General Surgery Comment on above: Arrived Start: 01-24-2021 End: 01-24-2021 Subsequent hospital visit by physician Pecry Botello Work Phone: [facility] Laboratory Start: 01-16-2021 End: 01-16-2021 Subsequent hospital visit by physician Bridget Briones Work Phone: [address] Endoscopy Comment on above: Arrived Start: 09-10-2020 End: 09-10-2020 Subsequent hospital visit by physician Chantell Cruz Work Phone: [facility] General Surgery Comment on above: Lumbar radiculopathy Start: 08-23-2020 End: 08-23-2020 Subsequent hospital visit by physician Percy Botello Work Phone: [facility] Laboratory Start: 06-08-2020 End: 06-08-2020 Subsequent hospital visit by physician Katarina Stevens Work Phone: [facility] Laura Puentes Comment on above: Arrived Start: 05-23-2020 End: 05-23-2020 Subsequent hospital visit by physician Katarina Stevens Work Phone: [facility] US Comment on above: Arrived Start: 03-13-2020 End: 03-13-2020 Subsequent hospital visit by physician Katarina Stevens Work Phone: [facility] CT Comment on above: Arrived Start: 08-08-2019 End: 08-08-2019 Subsequent hospital visit by physician Shruthi Godinez Work Phone: [facility] Comment on above: Arrived Start: 08-01-2019 End: 08-01-2019 Subsequent hospital visit by physician Shruthi Godinez Work Phone: [facility] Start: 04-05-2019 Patient encounter procedure [facility] Start: 02-13-2018 End: 02-14-2018 [facility] Start: 09-08-2017 Ambulatory [facility] Procedures Date Procedure Procedure Detail Performing Clinician Start: 04-05-2025 Parathyroid hormone measurement Katarina Stevens [facility] Work Phone: Start: 04-05-2025 Urnls dip stick/tabl et reagent auto microscopy Katarina Stevens [facility] Work Phone: Start: 04-05-2025 Vitamin D, 25-hydrox y measurement Katarina Stevens [facility] Work Phone: Comment on above: Vitamin D StatusDefi ciency: <20 ng/mL (50nmol/L)Insufficiency: 20-30 ng/mL (50-75 nmol/L)Sufficiency: 30-100 ng/mL (75-250 nmol/L)Toxicity: >100 ng/mL (>250 nmol/L) Start: 02-28-2025 Urine culture Katarina arguello [facility] Work Phone: Start: 02-03-2025 FL GUIDANCE OR USE O NLY - NON-RESULTABLE Chantell Cruz MD Work Phone: Start: 01-20-2025 FL GUIDANCE OR USE O NLY - NON-RESULTABLE Chantell Cruz MD Work Phone: Start: 01-04-2025 Urine culture Katarina Rich ardson [facility] Work Phone: Start: 12-08-2024 Urine culture Katarina arguello [facility] Work Phone: Start: 09-29-2024 Urine culture Katarina arguello [facility] Work Phone: Start: 07-06-2024 Screening digital br east tomosynthesis bi Katarina Stevens Work Phone: Start: 10-05-2023 Urine culture Start: 09-08-2023 Urine culture Start: 08-11-2023 Myocardial spect mul tiple studies Ba Hull MD Work Phone: Start: 07-31-2023 Ecg routine ecg w/le ast 12 lds w/i&r Ba Hull MD Work Phone: Start: 05-20-2023 End: 05-20-2023 Assay of phosphatase alkaline Toan Lara MD Work Phone: Start: 05-20-2023 Us abdominal real ti me w/image limited Toan Lara MD Work Phone: Start: 04-16-2023 Urine culture Start: 08-29-2022 Renal function panel Na noé Garcia MD Work Phone: Start: 03-08-2022 Urine culture Start: 02-20-2022 Urnls dip stick/tabl et rgnt auto w/o microscopy Percy Botello MD Start: 02-20-2022 End: 02-20-2022 Basic metabolic panel calcium total Percy Botello MD Start: 01-24-2021 25 hydroxy includes fractions if performed Percy Botello Work Phone: Start: 01-24-2021 Assay of parathormone A ellen Botello Work Phone: Start: 01-24-2021 Assay of phosphorus inorganic Percy Botello Work Phone: Start: 01-24-2021 Basic metabolic pane l calcium total Percy Botello Work Phone: Start: 04-07-2021 Creatinine clearance Ad alessandro Botello Work Phone: Start: 01-23-2021 Creatinine other source Percy Botello Work Phone: Start: 01-23-2021 Protein total xcpt refractometry urine Percy Botello Work Phone: Start: 01-23-2021 Urnls dip stick/tabl et rgnt auto w/o microscopy Percy Botello Work Phone: Start: 01-16-2021 End: 01-16-2021 Colonoscopy 3m Scanning Start: 01-16-2021 [facility] ENDOSCOPY REPORT 3m Scanning Start: 09-10-2020 OPERATIVE REPORT 3m Sca nning Start: 05-23-2020 Us retroperitoneal r eal time w/image complete Katarina Stevens Work Phone: Start: 03-13-2020 Ct abdomen & pelvis w/o contrast material Katarina Stevens Work Phone: Start: 08-08-2019 Mri spinal canal lum bar w/o & w/contr matrl Shruthi Godinez Work Phone: Start: 08-01-2019 Creatinine blood Shruthi Godinez Work Phone: Start: 05-20-2017 End: 05-28-2017 Echocardiography Brady Stephens MD Start: 05-20-2017 End: 05-20-2017 Follow Up Appt 6 months Jen Santana Start: 05-20-2017 End: 05-20-2017 MMM Brady Stephens MD Start: 05-20-2017 End: 05-27-2017 Nuclear stress test -exercise Brady Stephens MD Urine culture Plan of Treatment Date Care Activity Detail Author Start: 01-16-2031 Screening for malign ant neoplasm of colon [facility] Start: 06-19-2025 Influenza vaccination Influenz a Vaccine (Season Ended) [facility] Start: 04-14-2025 End: 04-14-2025 Patient encounter procedure 04/14/2025 11:15 AM EDT Office Visit [facility] [place] [address] [place], [place] [phone] Chantell Cruz MD [address] [place], [place] [phone] [facility] [place] Start: 02-03-2025 End: 02-03-2025 Admission to same day surgery center 02/03/2025 10:15 AM EDT - 02/03/2025 10:45 AM EDT Surgery [facility] [address] [place] [phone] Chantell Cruz MD [address] [place], [place] [phone] bilateral lumbar l4-l5 medial branch block #2 [99671 (CPT )] [facility] Comment on above: bilateral lumbar l4- l5 medial branch block #2 [63114 (CPT )] Start: 02-03-2025 Subsequent hospital visit by physician 02/03/2025 10:15 AM EDT Hospital Encounter [facility] [address] [place] [phone] Chantell Cruz MD [address] [place], [place] [phone] [facility] Start: 02-03-2025 End: 02-03-2025 Njx dx/ther agt pvrt facet jt lmbr/sac 1 level [facility] Start: 01-20-2025 End: 01-20-2025 Admission to same day surgery center 01/20/2025 1:30 PM EDT - 01/20/2025 2:00 PM EDT Surgery [facility] [address] [place] [phone] Chantell Cruz MD [address] [place], [place] [phone] bilateral lumbar l4-l5 medial branch block [46146 (CPT )] [facility] Comment on above: bilateral lumbar l4- l5 medial branch block [27644 (CPT )] Start: 01-20-2025 Subsequent hospital visit by physician 01/20/2025 1:30 PM EDT Hospital Encounter [facility] [address] [place] [phone] Chantell Cruz MD [address] [place], [place] [phone] [facility] Start: 01-20-2025 End: 01-20-2025 Njx dx/ther agt pvrt facet jt lmbr/sac 1 level [facility] Start: 12-30-2024 End: 12-30-2024 Patient encounter procedure 12/30/2024 3:45 PM EDT Office Visit [facility] [address] [place], [place] [phone] Chantell Cruz MD [address] [place], [place] [phone] [facility] Start: 12-26-2024 End: 12-26-2024 Xcapsl ctrc rmvl insj io lens prosth w/o ecp PHACOEMULSIFICATION, CATARACT, WITH INTRAOCULAR LENS INSERTION Nuclear sclerotic cataract of left eye 12/26/2024 8:50 AM EDT [facility] OR Start: 11-21-2024 End: 11-21-2024 Admission to same day surgery center 11/21/2024 8:00 AM EST - 11/21/2024 8:45 AM EST Surgery [facility] [address] [place] [phone] [place] [address] [place] [address] PHACOEMULSIFICATION, CATARACT, WITH IOL INSERTION RIGHT EYE [40348 (CPT )] [facility] Comment on above: PHACOEMULSIFICATION, CATARACT, WITH IOL INSERTION RIGHT EYE [89675 (CPT )] Start: 11-21-2024 End: 11-21-2024 Anesthesia consultation 11/21/2024 8:00 AM EST Anesthesia Event [facility] [address] [place] [phone] O'Izabella Reeder, MED SURG NURSE - LIGHT RAIL TRANSIT OPERATOR [address] [place] [address] Anthony Lopez PA-C [address] [place] [address] [facility] Start: 11-21-2024 Subsequent hospital visit by physician 11/21/2024 8:00 AM EST Hospital Encounter [facility] [address] [place] [phone] Prema Garcia MD [address] [address] [facility] Start: 11-21-2024 End: 11-21-2024 Xcapsl ctrc rmvl insj io lens prosth w/o ecp [facility] Start: 10-19-2024 Medicare [employer] A nnual Wellness Visit Medicare Advantage Annual Wellness Visit [facility] Start: 06-19-2024 COVID-19 Vaccine ( season) COVID-19 Vaccine ( season) [facility] Start: 06-19-2024 COVID-19 Vaccine ( season) COVID-19 Vaccine ( season) [facility] Start: 06-19-2024 Influenza vaccination Influenza Vacc ine (#1) [facility] Start: 06-10-2024 BP CONTROLLED (<130/80) BP CONTROLLE D (<130/80) [facility] Start: 10-19-2023 Medicare Advantage A nnual Wellness Visit Medicare [employer] Annual Wellness Visit [facility] Start: 09-17-2023 End: 09-17-2023 Patient encounter procedure 09/17/2023 8:30 AM EST Office Visit [facility] [address] [place] [address] Jayla Garcia, MED SURG NURSE - SHOE CASER [address], [address] [place] [address] [facility] Start: 08-31-2023 End: 08-31-2023 Patient encounter procedure 08/31/2023 9:00 AM EST Office Visit [facility] [address] [place] [phone] Katlyn Sanderson PA-C [address] [facility] [address] [place], [place] [phone] [facility] Start: 08-11-2023 End: 08-11-2023 Patient encounter procedure [facility] Non-Invasive Cardiology Start: 07-31-2023 End: 07-31-2025 Cardiac holter monitor (8- 15 days) Cardiac holter monitor (8- 15 days) [facility] Routine Dizziness Expected: 07/31/2023, Expires: 07/31/2025 [facility] Work Phone: Comment on above: Expected: 07/31/2023 , Expires: 07/31/2025 Start: 06-19-2023 COVID-19 Vaccine ( season) COVID-19 Vaccine ( season) [facility] Start: 06-19-2023 Influenza vaccination [facility] Start: 01-17-2023 COVID-19 VACCINE (6 - Pfizer series) COVID-19 VACCINE (6 - Pfizer series) [facility] Start: 10-19-2022 ADVANCE DIRECTIVE DISCUSSION ADVANCE DIRECTIVE DISCUSSION [facility] Start: 06-19-2022 Influenza vaccination Flu vacc ine (Season Ended) [facility] Start: 06-08-2022 Screening for malign ant neoplasm of breast Breast cancer screen - [place], [place] Start: 05-07-2022 COVID-19 Vaccine (4 - Booster for Pfizer series) COVID-19 Vaccine (4 - Booster for Pfizer series) [facility] Start: 05-07-2022 COVID-19 Vaccine (4 - Pfizer series) COVID-19 Vaccine (4 - Pfizer series) [facility] Start: 01-24-2022 Creatinine measurement [facility] Start: 01-24-2022 Potassium [Moles/vol ume] in Serum or Plasma Potassium [facility] Start: 01-24-2022 Potassium monitoring Potassium monit oring [facility] Work Phone: Start: 2021 RSV Immunization for Adults (1 - 1-dose 75+ series) RSV Immunization for Adults (1 - 1-dose 75+ series) [facility] Start: 06-19-2021 Influenza vaccination Flu vacc ine (Season Ended) [facility] Work Phone: Start: 04-05-2021 End: 04-05-2021 Patient encounter procedure 04/05/2021 Office Visit Pain Management Chantell Cruz MD [address] [place], [place] [phone] Pain Medicine Start: 02-13-2021 DIABETES SCREEN DIABETES SCREEN [facility] Start: 01-24-2021 End: 01-24-2021 Office Visit 01/24/2021 Office Visit General Surgery Bridget Briones MD [address] [place] [address], [address] [place] [address] [phone] Bridget Briones MD Start: 10-09-2020 End: 10-09-2020 Office Visit 10/09/2020 Office Visit Pain Management Chantell Cruz MD [address] [place], [place] [phone] Pain Medicine Start: 08-24-2020 End: 08-24-2020 Office Visit 08/24/2020 Office Visit Pain Management Chantell Cruz MD [address] [place], [place] [phone] Pain Medicine Start: 08-01-2020 Creatinine measurement Creatinine [facility] [place] Start: 08-01-2020 Creatinine monitoring Creatinine mon [place], [place] Start: 06-19-2020 Influenza vaccination [place], [place] Start: 08-08-2019 End: 08-08-2019 Appointment 08/08/2019 Appointment MRI Shruthi Godinez [address] [place] [address] [phone] [facility] Start: 06-19-2019 Influenza vaccination Flu vaccine (# 1) [place], [place] Start: 04-10-2019 Annual Wellness Visi t (AWV) Annual Wellness Visit (AWV) [facility] Start: 02-15-2019 Creatinine monitoring Creatinine hao [place], [place] Start: 02-15-2019 Potassium monitoring Potassium monit een [place] Start: 11-25-2017 End: 11-25-2017 Appointment Appointment [facility] Phone: Start: 11-13-2017 Pneumococcal 65+ yea rs Vaccine (2 - PPSV23 or PCV20) Pneumococcal 65+ years Vaccine (2 - PPSV23 or PCV20) [facility] Start: 11-13-2017 Pneumococcal Vaccine : 50+ Years (2 of 2 - PPSV23) Pneumococcal Vaccine: 50+ Years (2 of 2 - PPSV23) [facility] Start: 11-13-2017 Pneumococcal Vaccine : 65+ Years (2 - PPSV23 if available, else PCV20) Pneumococcal Vaccine: 65+ Years (2 - PPSV23 if available, else PCV20) [facility] Start: 11-13-2017 Pneumococcal Vaccine : 65+ Years (2 - PPSV23 or PCV20) Pneumococcal Vaccine: 65+ Years (2 - PPSV23 or PCV20) [facility] Start: 11-13-2017 Pneumococcal Vaccine : 65+ Years (2 of 2 - PPSV23 or PCV20) Pneumococcal Vaccine: 65+ Years (2 of 2 - PPSV23 or PCV20) [facility] Start: 11-13-2017 PNEUMOCOCCAL: 65+ (2 - PPSV23 or PCV20) PNEUMOCOCCAL: 65+ (2 - PPSV23 or PCV20) [facility] Start: 05-20-2017 End: 05-20-2017 Appointment Appointment [facility] Work Phone: Start: 05-20-2017 End: 05-20-2017 Echocardiography Echocardiogram (complete) [facility] Work Phone: Start: 05-20-2017 End: 05-20-2017 Follow Up Appt 6 months Follow Up Appt 6 months [facility] Work Phone: Start: 05-20-2017 End: 05-20-2017 MMM MMM [facility] Work Phone: Start: 05-20-2017 End: 05-20-2017 Nuclear stress test -exercise Nuclear stress test -exercise [facility] Work Phone: Start: 2011 BONE DENSITY BONE DENSITY [facility] Start: 2011 Pneumococcal 65+ yea rs Vaccine (1 of 1 - PPSV23) Pneumococcal 65+ years Vaccine (1 of 1 - PPSV23) [place] Start: 2011 Pneumococcal 65+ yea rs Vaccine (1 of 2 - PCV13) Pneumococcal 65+ years Vaccine (1 of 2 - PCV13) [place] Start: 2006 RSV Immunization age d 60 or older (1 - 1-dose 60+ series) RSV Immunization aged 60 or older (1 - 1-dose 60+ series) [facility] Start: 1996 Breast cancer screen Breast cancer s creen [place], [place] Start: 1996 Colon cancer screen colonoscopy Colon cancer screen colonoscopy [place] Start: 1996 Screening for malign ant neoplasm of breast Breast cancer screen [place] Start: 1996 Screening for malign ant neoplasm of colon Colon cancer screen colonoscopy [place], [place] Start: 1996 Shingles Vaccine (1 of 2) Delarosa gles Vaccine (1 of 2) [facility] Start: 1996 SHINGRIX VACCINE (1 of 2) DELAROSA GRIX VACCINE (1 of 2) [facility] Start: 1996 Zoster Vaccines (1 of 2) Zoste r Vaccines (1 of 2) [facility] Start: 1991 Screening for malign ant neoplasm of colon [facility] Start: 1965 DTaP/Tdap/Td vaccine (1 - Tdap) DTaP/Tdap/Td vaccine (1 - Tdap) [facility] Start: 1965 DTaP/Tdap/Td Vaccine s (1 - Tdap) DTaP/Tdap/Td Vaccines (1 - Tdap) [facility] Start: 1965 Urine microalbumin profile DTAP,TDAP,TD (1 - Tdap) [facility] Start: 1964 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 IFEOMA DISEASE VISIT ANNUAL PCP TEAM CHRONIC DISEASE VISIT [facility] Start: 1964 Hepatitis C screening S [facility] Start: 1964 HEPATITIS C SCREENING HEPATITIS C SC REENING [facility] Start: 1962 COVID-19 Vaccine (1) COVID-19 Vaccin e (1) [facility] Work Phone: Start: 1958 Depression Screen Depression Screen [facility] Start: 1958 Depression Screening Depression Scre ening [facility] Start: 1956 Lipid panel [facility] Start: 1956 Lipid screen Lipid screen [place], [place] Start: 1946 Hepatitis B Vaccines (1 of 3 - 3-dose series) Hepatitis B Vaccines (1 of 3 - 3-dose series) [facility] Start: 1946 Hepatitis C screen Hepatitis C scree n [place], [place] Start: 1946 Hepatitis C screening Hepatitis C sc sheila [place] Start: 1946 Lipid panel Lipid Panel [facility] Start: 1946 Medicare Advantage A nnual Wellness Visit (AWV) Medicare Advantage Annual Wellness Visit (AWV) [facility] Start: 1946 Screening for osteoporosis Bone Density Scan [facility] End: 08-11-2023 Cardiac holter monitor (8- 15 days) [facility] Work Phone: Comment on above: Once for 1 Occurrenc es starting 08/11/2023 until 08/11/2023 Creatinine Clearance , Urine, 24 HR Creatinine Clearance, Urine, 24 HR Lab Routine 01/23/2021 8:30 AM EDT [facility] Work Phone: [facility]AXIAL SKELETON DXA-AXIAL SKE LETON Radiology Routine Screening for osteoporosis Menopause 1 Occurrences starting 06/10/2023 [email or web address] Phone: Comment on above: 1 Occurrences starti ng 06/10/2023 MARY ANN SCREENING W NOBLE MARY ANN SCREENI NG W NOBLE Radiology Routine Gynecologic exam normal Breast cancer screening by mammogram 1 Occurrences starting 06/10/2023 [email or web address] Phone: Comment on above: 1 Occurrences starti ng 06/10/2023 Njx dx/ther agt pvrt facet jt lmbr/sac 1 level INJECTION, DIAGNOSTIC OR THERAPEUTIC AGENT, FACET JOINT Spondylosis without myelopathy or radiculopathy, lumbar region [employer] OUTSIDE PROCEDURE SCAN OUTSIDE P ROCEDURE SCAN Procedures Ordered: 11/11/2022 [employer] Comment on above: Ordered: 11/11/2022 OUTSIDE PROCEDURE SCAN OUTSIDE P ROCEDURE SCAN Procedures Ordered: 05/20/2023 [employer] Comment on above: Ordered: 05/20/2023 OUTSIDE PROCEDURE SCAN OUTSIDE P ROCEDURE SCAN Procedures Ordered: 05/19/2023 [employer] Comment on above: Ordered: 05/19/2023 Oxygen therapy [[facility] Data Set] Initiate Oxygen Therapy Protocol Respiratory Care Routine Daily until discontinued starting 01/16/2021 [email or web address] Phone: Comment on above: Daily until disconti nued starting 01/16/2021 PAP REFLEX HPV MRNA WHEN ASCUS PAP REFLEX HPV MRNA WHEN ASCUS Lab Routine Gynecologic exam normal Cervical cancer screening Ordered: 06/10/2023 [employer] Work Phone: Comment on above: Ordered: 06/10/2023 End: 01-24-2021 Protein, 24 Hr Urine Protein, 24 Hr Urine Lab Routine Once for 1 Occurrences starting 01/24/2021 until 01/24/2021 [email or web address] Phone: Comment on above: Once for 1 Occurrenc es starting 01/24/2021 until 01/24/2021 Protein, 24 Hr Urine Protein, 24 Hr Urine Lab Routine 01/23/2021 8:30 AM EDT [employer] Work Phone: End: 06-08-2020 Screening digital breast tomosynthesis bi [facility] Digital Screen Bilateral Imaging Routine Once for 1 Occurrences starting 06/08/2020 until 06/08/2020 [facility] Once for 1 Occurrenc es starting 06/08/2020 until 06/08/2020 Screening digital br east tomosynthesis bi [facility] Digital Screen Bilateral Imaging Routine 06/08/2020 10:52 AM EDT [facility] Urate [Mass/volume] in Serum or Plasma [facility] Vitamin B12 measurement [facility] End: 11-11-2022 XR Shoulder - left 2 Views [facility] Work Phone: Comment on above: Once for 1 Occurrenc es starting 11/11/2022 until 11/11/2022 [facility] Immunizations Immunization Date Immunization Notes Care Provider Fa [facility] 09-18-2022 COVID-19 vaccine, ag e 12+ yr, bivalent (PFIZER-BIONTECH) Tram Sampson MD Work Phone: [facility] 08-23-2022 influenza (HD-IIV4) vaccine, age 65+ yr, high dose, quadrivalent, PF (FLUZONE HIGH-DOSE) Tram Sampson MD Work Phone: [facility] 08-23-2022 influenza virus vaccine, unspecified formulation [facility] Drawstation [facility] 03-12-2022 Covid-19, Pfizer Gra y Top, Do Not Dilute, (Age 12 Y+), Im, L Katarina Stevens Work Phone: [facility] 08-09-2021 Pfizer SARS-CoV-2 Vaccination Katarina Stevens Work Phone: [facility] 12-23-2020 Pfizer SARS-CoV-2 Vaccination Katarina Stevens Work Phone: [facility] 12-02-2020 Pfizer SARS-CoV-2 Vaccination Katarina Stevens Work Phone: [facility] 07-09-2020 Fluzone Quad 2019- 21 (PF) (flu vacc [id number] 6mos up(PF)) 60 mcg (15 mcg x [facility] Work Phone: 08-16-2019 Seasonal trivalent influenza vaccine, adjuvanted, preservative free Tram Sampson MD Work Phone: [facility] 07-24-2017 influenza, high dose seasonal, preservative-free Tram Sampson MD Work Phone: [facility] 11-13-2016 pneumococcal conjuga te vaccine, 13 valent Tram Sampson MD Work Phone: [facility] 08-22-2016 influenza, high dose seasonal, preservative-free Tram Sampson MD Work Phone: [facility] 07-24-2015 influenza, high dose seasonal, preservative-free Tram Sampson MD Work Phone: [facility] 07-19-2013 influenza, seasonal, injectable Tram Sampson MD Work Phone: [facility] 10-08-2009 novel [id number], preservative-free, injectable Tram Sampson MD Work Phone: [facility] Payers Date Payer Category Payer Self-pay [id number] 2021 Medicare HMO UHC AARP MEDICAR E ADVANTAGE [id number] [facility] Address: [facility] [address] [place] [address] [id number] 2018 Medicare UHC MEDICARE UHC MEDICARE COMPLETE xxxxxxxxx 2018-Present xxxxxxxxx [id number] 2018 Medicare [id number] 2011 Private Health Insurance [facility] AARP SUPPLEMENT [id number] 2011-Present [phone] [address] [place] [address] Indemnity [id number] 2011 Medicare [id number] Medicare [id number] Unknown [id number] Unknown AARP MCR ADV [id number] Unknown [id number] Unknown [id number] Unknown [id number] Unknown [id number] Unknown [id number] Unknown [id number] Social History Date Type Detail Facility Start: 05-02-2019 End: 07-06-2024 Tobacco smoking status NHIS Never smoker [place], [place] Start: 05-02-2019 End: 11-14-2024 Alcohol intake No [facility] Start: 1945 [facility] Assigned At [facility] on [facility] Start: 05-02-2019 End: 04-14-2025 Alcohol intake Current non-drinker of alcohol (finding) [place] [facility] Start: 05-[facility]2019 End: 07-06-2024 Tobacco use and exposure [facility]: 11-01-2022 End: 05-19-2023 Exposure to SARS-CoV-2 (event) Not sure [facility] Start: 1945 Sex Assigned At Female W [facility] Start: 06-10-2023 Alcohol intake Current drinke r of alcohol (finding) [facility] Start: 06-10-2023 End: 11-14-2024 History of Social function [facility] Adult Depression Screening Assessment 0 [facility] Start: 06-10-2023 Alcohol Comment [facility] Start: 05-19-2022 End: 01-13-2025 Sex Female (finding) [facility] Tobacco smoking stat us NHIS Unknown if ever smoked [facility] Work Phone: NEGATED: Highlighted rowStart: NINF History of tobacco use Passive smoker [facility] Medical Equipment Procedure Code Equipment Code Equipment Origin al Text Equipment Identifier Dates Lens Iol Posteri or [facility] - [id number] - [id number] Start: 11-21-2024 Lens Iol Posteri or [facility] - [id number] - [id number] Start: 12-26-2024 Clinical Notes 02-25-2021 to 04-14-2025 Chantell Cruz MD - 04/14/2025 11:15 AM EDTTelephone Encounter - Vex AURY Rodgers - 03/23/2025 2:57 PM EDTTelephone Encounter - Vex AURY Rodgers - 03/23/2025 2:57 PM EDTDischarge Instructions Note Date & Type Note Facility 04-14-2025 History of Presen t illness Narrative Images from the original note were not included. [facility] [id number] [facility] [address] [facility] [address] Dept: [phone] Dept Chief Complaint Patient presents with Back Pain She says she did go to PT about 6 times. She says it helped with the R side, but not the L side. She's says she still is doing her exercises. SUBJECTIVE HPI: Milena Mcghee is a 79 y.o. year old here today for follow-up of chronic low back pain. Since last visit, her right side low back pain is essentially gone after recent PT, but she is still having significant left lower back pain. LOCATION OF PAIN: Left low back RADIATES: denies into the legs CONSTANT/INTERMITTENT: Constant NUMBNESS/TINGLING? denies WEAKNESS? denies URINARY/FECAL INCONTINENCE? No SADDLE ANESTHESIA? no INTERFERING WITH SLEEP? No CURRENT PAIN MEDS: Tylenol 1000 mg PRN (usually once or twice a day), Gabapentin 600 mg daily, baclofen 5 mg BID PRN ANY SIGNIFICANT SIDE EFFECTS FROM CURRENT PAIN MEDS? no ARE THEY PROVIDING ADEQUATE ANALGESIA? mild ARE THEY PROVIDING ADEQUATE FUNCTIONAL IMPROVEMENT? mild PAIN MEDS PREVIOUSLY TRIED/FAILED: Meloxicam (had helped but had to stop due to kidney function concerns), duloxetine (side effects), lidocaine patches OTHER CURRENT / PREVIOUS TREATMENT Physical therapy -- Last did shortly after her most recent back surgery in 2018 TENS -- No Chiropractor -- No Acupuncture -- No Prior Pain Clinic -- Dr Morrison in [place] Chronic opiates -- No Previous Pain Procedures -- some previous lumbar injections prior to her back surgeries 09/10/20 -- LEFT L4 and L5 TFESI -- >50% improvement in leg symptoms, only 2 days of relief of axial back pain 02/25/21 -- LEFT SI joint -- 30% improvement in pain, >50% improvement in function / ambulation 01/20/25 -- bilateral L4 and L5 MBB -- 100% relief for a few hours 02/03/25 -- bilateral L4 and L5 MBB -- 20% relief for a few hours Patient Active Problem List Diagnosis Date Noted Sacroiliitis (HCC) 02/25/2021 Epigastric pain 01/16/2021 BRBPR (bright red blood per rectum) 01/16/2021 Lumbar radiculopathy 09/10/2020 Closed nondisplaced fracture of base of fourth metacarpal bone of left hand 02/21/2019 Displaced fracture of base of fifth metacarpal bone of left hand 02/21/2019 Nausea & vomiting 02/14/2018 Nausea and vomiting 02/14/2018 Allergies Allergen Reactions Codeine Nausea And Vomiting and Unknown Other reaction(s): GI Upset, spinning adn vomiting Nitrofurantoin Hives and Other Prednisone Other reaction(s): nevous unable to sleep, Other, Unknown Seasonal Rash and Nausea And Vomiting Sulfa Antibiotics Rash, Swelling and Other Other reaction(s): swelling of the throat Other reaction(s): swelling of the throat Oxycodone Nausea And Vomiting Promethazine Other Other reaction(s): makes me act drunk Sulfasalazine Rash Family History Adopted: Yes Past Medical History: Diagnosis Date Age-related nuclear cataract of right eye 11/17/2024 Age-related nuclear cataract, left 12/22/2024 Cholecystitis, chronic Chronic back pain Chronic kidney disease STAGE 3 Closed nondisplaced fracture of base of fourth metacarpal bone of left hand 02/21/2019 Displaced fracture of base of fifth metacarpal bone of left hand 02/21/2019 Displaced fracture of base of fourth metacarpal bone of left hand 02/21/2019 GERD (gastroesophageal reflux disease) Hyperlipidemia Hypertension Osteoarthritis PONV (postoperative nausea and vomiting) Social History Socioeconomic History Marital status: Spouse name: Not on file Number of children: Not on file Years of education: Not on file Highest education level: Not on file Occupational History Not on file Tobacco Use Smoking status: Never Passive exposure: Never Smokeless tobacco: Never Vaping Use Vaping status: Never Used Substance and Sexual Activity Alcohol use: No Drug use: No Sexual activity: Not on file Other Topics Concern Not on file Social History Narrative Not on file Social Drivers of Health Financial Resource Strain: Not on file Food Insecurity: Not on file Transportation Needs: No Transportation Needs (11/14/2024) PRAPARE - Transportation Lack of Transportation (Medical): No Lack of Transportation (Non-Medical): No Physical Activity: Not on file Stress: Not on file Social Connections: Not on file Intimate Partner Violence: Not on file Housing Stability: Not on file Past Surgical History: Procedure Laterality Date BACK SURGERY 2013 and 2017 L3-4 fusion CHOLECYSTECTOMY COLONOSCOPY Current Outpatient Medications Medication Sig Dispense Refill acetaminophen (Tylenol) 500 MG tablet every 8 hours as needed. amLODIPine (Norvasc) 5 MG tablet Take 1 tablet by mouth every morning (before breakfast). atorvastatin (Lipitor) 10 MG tablet Take 1 tablet by mouth every morning (before breakfast). baclofen (Lioresal) 5 MG tablet Take 1 tablet (5 mg) by mouth 2 times daily as needed (pain). 60 tablet 1 cholecalciferol (Vitamin D-3) 50 MCG (2000 UT) tablet Take by mouth daily. gabapentin (Neurontin) 300 MG capsule Take 600 mg by mouth every morning (before breakfast). lisinopril 20 MG tablet Take 1 tablet by mouth every morning (before breakfast). Multiple Vitamin (Multi Vitamin) tablet Take 1 tablet by mouth every morning (before breakfast). omeprazole (PriLOSEC) [address] capsule Take 20 mg by mouth daily. predniSONE (Deltasone) 20 MG tablet Take 40 mg by mouth daily. traMADol (Ultram) 50 MG tablet TAKE 1 TABLET BY MOUTH AT BEDTIME for chronic pain No current facility-administered medications for this visit. Review of Systems OBJECTIVE Vitals: 04/14/25 1118 BP: 113/76 Pulse: 76 Weight: 172 lb (78 kg) Height: 5' 5 (1.651 m) Physical Exam Constitutional: General: She is not in acute distress. Appearance: She is well-developed. She is not diaphoretic. Eyes: Conjunctiva/sclera: Right eye: Right conjunctiva is not injected. Left eye: Left conjunctiva is not injected. Comments: Pupils not pinpoint Pulmonary: Effort: Pulmonary effort is normal. No respiratory distress. Abdominal: General: There is no distension. Skin: General: Skin is warm. Findings: No bruising, erythema or lesion. Neurological: Mental Status: She is alert. Psychiatric: Mood and Affect: Mood and affect normal. Speech: Speech normal. DETAILED MSK/NEURO: Lumbar Spine/Lower Extremity Inspection: previous surgical scar noted within the lumbar region. Palpation: Midline Paraspinal - Right Paraspinal - Left Lumbar w/o pain W/o pain + pain Range of motion: Extension Rotation Lateral Bend Lumbar Full - w/ pain Limited with pain to the left Limited with pain to the left + MELINA and thigh thrust on the left, but negative compression, distraction and Gaenslen's tests. IMAGING / OTHER STUDIES: 08/08/19 MRI Lumbar Spine Five lumbar type vertebra are assumed for purposes of numbering on this examination. Postsurgical changes from the L3-L5 levels with new bilateral pedicle adis and screw fixation. No significant fluid collection surrounding the hardware.. No abnormal intrathecal postcontrast enhancement or clumping of nerve roots. The pedicles of the spinal canal superior to this are shortened resulting in relative congenital central canal stenosis with superimposed degenerative change. The lumbar spine is in normal overall alignment without evidence of spondylolisthesis. The conus terminates at a normal L1 level. No abnormal signal is appreciated within the distal cord. T12-L1: No disc bulge or disc protrusion. No central spinal canal stenosis. No neural foraminal narrowing. L1-L2: Mild facet arthropathy and ligamentum flavum enfolding. 3 mm right neural foraminal disc protrusion, abutting the exiting nerve root. Moderate right neural foraminal narrowing. Mild left neural foraminal narrowing. No additional disc bulge or disc protrusion. No superimposed central spinal canal stenosis. L2-L3: 3 mm circumferential broad-based disc bulge. Bilateral facet arthropathy contributes to moderate bilateral neural foraminal narrowing, right greater than left. No superimposed central canal stenosis. L3-L4: Intervertebral disc space narrowing with facet arthropathy. Tiny disc marginal endplate osteophytosis. The central canal is patent. No evidence of neural foraminal narrowing. L4-L5: Bilateral facet arthropathy. 3 mm circumferential broad-based disc bulge, extending into the neural foramina where it abuts the exiting nerve roots and contributes to moderate bilateral neural foraminal narrowing. There appears to be extrusion of disc contents within the left neural foramen (image 11 series 2). No superimposed central canal narrowing. L5-S1: Advanced bilateral facet arthropathy. No significant disc bulge or protrusion. The central canal is patent. No significant bilateral neural foraminal narrowing. Impression: 1.Multilevel degenerative changes as detailed above. Postsurgical changes from L3 to L5 with bilateral pedicle adis and screw fixation. 2.At L1-L2 there is moderate right and mild left neural foraminal narrowing. Overall this level is similar to the prior exam. 3.At L2-L3 there is moderate bilateral neural foraminal narrowing, right greater than left. Overall this level is similar to the prior exam. 4.At L4-L5 there is a broad-based disc bulge appears to abut the exiting nerve roots and contributes to moderate bilateral neural foraminal narrowing. There is new extrusion of disc contents within the left lateral foramen. LABS: ASSESSMENT 1. Lumbar facet arthropathy 1) Chronic low back pain (>1 year duration) -- in the setting of previous lumbar (L3-4) fusion. Her pain is primarily axial, and is still most consistent with lower lumbar facet arthropathy vs pain / dysfunction in the lower lumbar core stabilizing muscles... Not currently adequately controlled, with good relief from her first but not second recent bilateral L4 and L5 MBB in January 2025, but some of that pain was likely myofascial, which has improved with recent PT, though the axial left low back pain persists, which I still think is most likely facet-mediated PLAN - Will try increasing baclofen to 10 mg twice daily as needed - Continue Tylenol up to 3000 mg total per day PRN - Can continue gabapentin 600 mg daily for now - Encouraged continuing to work on core back strengthening / extension exercises on a routine basis as tolerated - Will set her up for left L4 and L5 MBB under fluoro, after thoroughly discussing the procedure itself (as well as its diagnostic nature as part of a 3-step process toward eventual RFA), as well as its associated risks (including but not limited to bleeding/epidural hematoma, infection/epidural abscess, spinal cord/nerve root injury, inadvertent intrathecal/epidural injection, weakness, and increased pain), potential benefits, and alternatives. No follow-ups on file. documented in this encounter [facility] 03-23-2025 Note Referral and last OV note sent to number provided [facility] 03-23-2025 Telephone encount er Note Referral and last OV note sent to number provided [facility] 03-23-2025 Miscellaneous Notes Formattin g of this note might be different from the original. Referral and last OV note sent to number provided Name of caller: Milena Contact phone number: [phone] Relationship to Patient: patient Provider: MD Anthony Practice: [facility] Chief Complaint/Reason for Call: Patient called in requesting that her PT referral be sent to [facility] phone # [phone] Please be advised Best time of day caller can be reached: Any Patient advised that office/PCP has 24-48 business hours to return their call: N/A documented in this encounter [facility] 03-23-2025 Telephone encount er Note Name of caller: Milena Contact phone number: [phone] Relationship to Patient: patient Provider: MD Anthony Practice: [facility] Chief Complaint/Reason for Call: Patient called in requesting that her PT referral be sent to [facility] phone # [phone] Please be advised Best time of day caller can be reached: Any Patient advised that office/PCP has 24-48 business hours to return their call: N/A [facility] 02-10-2025 History of Presen t illness Narrative Images from the original note were not included. [facility] [address] [facility] [address] [facility] [address] Dept: [phone] Dept Chief Complaint Patient presents with Follow-up Pt is here for a follow up from the second Bilateral L4-5 lumbar MBB which was done on 02/03/2025. SUBJECTIVE HPI: Milena Mcghee is a 79 y.o. year old here today for follow-up of chronic low back pain. Since last visit, she reported about 5-6 hours of 100% pain relief following her first bilateral L4 and L5 MBB on 01/20/2025, but only about 20% relief after her second 1 on 02/03/2025. LOCATION OF PAIN: Across low back (left more so than right sided, but bilateral) RADIATES: into bilateral posterolateral hips / buttocks CONSTANT/INTERMITTENT: Constant NUMBNESS/TINGLING? denies WEAKNESS? denies URINARY/FECAL INCONTINENCE? No SADDLE ANESTHESIA? no INTERFERING WITH SLEEP? No CURRENT PAIN MEDS: Tylenol 1000 mg PRN (usually once or twice a day), Gabapentin 600 mg daily ANY SIGNIFICANT SIDE EFFECTS FROM CURRENT PAIN MEDS? no ARE THEY PROVIDING ADEQUATE ANALGESIA? mild ARE THEY PROVIDING ADEQUATE FUNCTIONAL IMPROVEMENT? mild PAIN MEDS PREVIOUSLY TRIED/FAILED: Meloxicam (had helped but had to stop due to kidney function concerns), duloxetine (side effects), lidocaine patches OTHER CURRENT / PREVIOUS TREATMENT Physical therapy -- Last did shortly after her most recent back surgery in 2018 TENS -- No Chiropractor -- No Acupuncture -- No Prior Pain Clinic -- Dr Morrison in [place] Chronic opiates -- No Previous Pain Procedures -- some previous lumbar injections prior to her back surgeries 09/10/20 -- LEFT L4 and L5 TFESI -- >50% improvement in leg symptoms, only 2 days of relief of axial back pain 02/25/21 -- LEFT SI joint -- 30% improvement in pain, >50% improvement in function / ambulation Patient Active Problem List Diagnosis Date Noted Sacroiliitis (HCC) 02/25/2021 Epigastric pain 01/16/2021 BRBPR (bright red blood per rectum) 01/16/2021 Lumbar radiculopathy 09/10/2020 Closed nondisplaced fracture of base of fourth metacarpal bone of left hand 02/21/2019 Displaced fracture of base of fifth metacarpal bone of left hand 02/21/2019 Nausea & vomiting 02/14/2018 Nausea and vomiting 02/14/2018 Allergies Allergen Reactions Codeine Nausea And Vomiting and Unknown Other reaction(s): GI Upset, spinning adn vomiting Nitrofurantoin Hives and Other Prednisone Other reaction(s): nevous unable to sleep, Other, Unknown Seasonal Rash and Nausea And Vomiting Sulfa Antibiotics Rash, Swelling and Other Other reaction(s): swelling of the throat Other reaction(s): swelling of the throat Oxycodone Nausea And Vomiting Promethazine Other Other reaction(s): makes me act drunk Sulfasalazine Rash Family History Adopted: Yes Past Medical History: Diagnosis Date Age-related nuclear cataract of right eye 11/17/2024 Age-related nuclear cataract, left 12/22/2024 Cholecystitis, chronic Chronic back pain Chronic kidney disease STAGE 3 Closed nondisplaced fracture of base of fourth metacarpal bone of left hand 02/21/2019 Displaced fracture of base of fifth metacarpal bone of left hand 02/21/2019 Displaced fracture of base of fourth metacarpal bone of left hand 02/21/2019 GERD (gastroesophageal reflux disease) Hyperlipidemia Hypertension Osteoarthritis PONV (postoperative nausea and vomiting) Social History Socioeconomic History Marital status: Spouse name: Not on file Number of children: Not on file Years of education: Not on file Highest education level: Not on file Occupational History Not on file Tobacco Use Smoking status: Never Passive exposure: Never Smokeless tobacco: Never Vaping Use Vaping status: Never Used Substance and Sexual Activity Alcohol use: No Drug use: No Sexual activity: Not on file Other Topics Concern Not on file Social History Narrative Not on file Social Drivers of Health Financial Resource Strain: Not on file Food Insecurity: Not on file Transportation Needs: No Transportation Needs (11/14/2024) PRAPARE - Transportation Lack of Transportation (Medical): No Lack of Transportation (Non-Medical): No Physical Activity: Not on file Stress: Not on file Social Connections: Not on file Intimate Partner Violence: Not on file Housing Stability: Not on file Past Surgical History: Procedure Laterality Date BACK SURGERY 2013 and 2018 L3-4 fusion CHOLECYSTECTOMY COLONOSCOPY Current Outpatient Medications Medication Sig Dispense Refill acetaminophen (Tylenol) 500 MG tablet every 8 hours as needed. amLODIPine (Norvasc) 5 MG tablet Take 1 tablet by mouth every morning (before breakfast). atorvastatin (Lipitor) 10 MG tablet Take 1 tablet by mouth every morning (before breakfast). cholecalciferol (Vitamin D-3) 50 MCG (2000 UT) tablet Take by mouth daily. gabapentin (Neurontin) 300 MG capsule Take 600 mg by mouth every morning (before breakfast). lisinopril 20 MG tablet Take 1 tablet by mouth every morning (before breakfast). Multiple Vitamin (Multi Vitamin) tablet Take 1 tablet by mouth every morning (before breakfast). omeprazole (PriLOSEC) [address] capsule Take 20 mg by mouth daily. predniSONE (Deltasone) 20 MG tablet Take 40 mg by mouth daily. traMADol (Ultram) 50 MG tablet TAKE 1 TABLET BY MOUTH AT BEDTIME for chronic pain No current facility-administered medications for this visit. Review of Systems OBJECTIVE Vitals: 02/10/25 1334 BP: 131/81 BP Location: Right arm Patient Position: Sitting BP Cuff Size: Large adult Pulse: 87 Weight: 175 lb (79.4 kg) Height: 5' 5 (1.651 m) Physical Exam Constitutional: General: She is not in acute distress. Appearance: She is well-developed. She is not diaphoretic. Eyes: Conjunctiva/sclera: Right eye: Right conjunctiva is not injected. Left eye: Left conjunctiva is not injected. Comments: Pupils not pinpoint Pulmonary: Effort: Pulmonary effort is normal. No respiratory distress. Abdominal: General: There is no distension. Skin: General: Skin is warm. Findings: No bruising, erythema or lesion. Neurological: Mental Status: She is alert. Psychiatric: Mood and Affect: Mood and affect normal. Speech: Speech normal. DETAILED MSK/NEURO: Lumbar Spine/Lower Extremity Inspection: previous surgical scar noted within the lumbar region. Palpation: Midline Paraspinal - Right Paraspinal - Left Lumbar w/o pain + pain + pain (particularly over the QL muscle today) Range of motion: Extension Rotation Lateral Bend Lumbar Full - w/ pain Limited with pain Limited with pain IMAGING / OTHER STUDIES: 08/08/19 MRI Lumbar Spine Five lumbar type vertebra are assumed for purposes of numbering on this examination. Postsurgical changes from the L3-L5 levels with new bilateral pedicle adis and screw fixation. No significant fluid collection surrounding the hardware.. No abnormal intrathecal postcontrast enhancement or clumping of nerve roots. The pedicles of the spinal canal superior to this are shortened resulting in relative congenital central canal stenosis with superimposed degenerative change. The lumbar spine is in normal overall alignment without evidence of spondylolisthesis. The conus terminates at a normal L1 level. No abnormal signal is appreciated within the distal cord. T12-L1: No disc bulge or disc protrusion. No central spinal canal stenosis. No neural foraminal narrowing. L1-L2: Mild facet arthropathy and ligamentum flavum enfolding. 3 mm right neural foraminal disc protrusion, abutting the exiting nerve root. Moderate right neural foraminal narrowing. Mild left neural foraminal narrowing. No additional disc bulge or disc protrusion. No superimposed central spinal canal stenosis. L2-L3: 3 mm circumferential broad-based disc bulge. Bilateral facet arthropathy contributes to moderate bilateral neural foraminal narrowing, right greater than left. No superimposed central canal stenosis. L3-L4: Intervertebral disc space narrowing with facet arthropathy. Tiny disc marginal endplate osteophytosis. The central canal is patent. No evidence of neural foraminal narrowing. L4-L5: Bilateral facet arthropathy. 3 mm circumferential broad-based disc bulge, extending into the neural foramina where it abuts the exiting nerve roots and contributes to moderate bilateral neural foraminal narrowing. There appears to be extrusion of disc contents within the left neural foramen (image 11 series 2). No superimposed central canal narrowing. L5-S1: Advanced bilateral facet arthropathy. No significant disc bulge or protrusion. The central canal is patent. No significant bilateral neural foraminal narrowing. Impression: 1.Multilevel degenerative changes as detailed above. Postsurgical changes from L3 to L5 with bilateral pedicle adis and screw fixation. 2.At L1-L2 there is moderate right and mild left neural foraminal narrowing. Overall this level is similar to the prior exam. 3.At L2-L3 there is moderate bilateral neural foraminal narrowing, right greater than left. Overall this level is similar to the prior exam. 4.At L4-L5 there is a broad-based disc bulge appears to abut the exiting nerve roots and contributes to moderate bilateral neural foraminal narrowing. There is new extrusion of disc contents within the left lateral foramen. LABS: ASSESSMENT No diagnosis found. 1) Chronic low back pain (>1 year duration) -- in the setting of previous lumbar (L3-4) fusion. Her pain is primarily axial, and is still most consistent with lower lumbar facet arthropathy vs pain / dysfunction in the lower lumbar core stabilizing muscles... Not currently adequately controlled, with good relief from her first but not second recent bilateral L4 and L5 MBB. I do still think she probably has some facet mediated pain, but perhaps the myofascial elements are the bigger factor, leading to the conflicting results with the MBB's recently PLAN - Will trial baclofen 5 mg twice daily as needed - Continue Tylenol up to 3000 mg total per day PRN - Can continue gabapentin 600 mg daily for now - Encouraged working on core back strengthening / extension exercises on a routine basis as tolerated, and will refer to physical therapy for more in-depth work on this - Explained we could possibly retry the MBB down the road if some of her pain does improve with ongoing physical therapy/exercise, but is still not adequately controlled, but her insurance would likely not cover RFA without 2 positive MBB results first. I explained to her that medically, one could make an argument still for just proceeding with the RFA based off of just one good MBB result, but this would likely have to be [id number], and not something I would necessarily recommend given the more questionable chance of success. No follow-ups on file. documented in this encounter [facility] 02-03-2025 Hospital Discharg e instructions Chantell Cruz MD - 02/03/2025 10:11 AM EDT - Resume normal activity as tolerated... and pay close attention to your usual back pain over the next few hours (and fill out pain diary provided to you today) - Resume normal diet as tolerated - If injection site is sore, can ice for pain relief - No tubs, baths, pools for 24 hours (showers are okay). - Call Dr Cruz's office (or go to ER after hours or on weekends) if having significantly worsened back or leg pain, significant leg weakness, loss of bowel/bladder control, inability to urinate, fever, or severe positional headache (headache that is significant while upright, but immediately improved with lying flat) - Dr Cruz's office will call you this week to follow-up documented in this encounter [facility] 02-03-2025 Procedure note OPERATIVE NOTE DATE: 02/03/25 LOCATION: [facility] PROCEDURE: Bilateral L4 and L5 Medial Branch Nerve Blocks under Fluoroscopic Guidance PERFORMED BY: Chantell Cruz MD PRE-OPERATIVE DIAGNOSIS: Lumbar Spondylosis without Radiculopathy or Myelopathy POST-OPERATIVE DIAGNOSIS: Same ANESTHESIA: Local DESCRIPTION: History and physical examination were performed and informed consent obtained. A time out with 2 active identifiers of the patient, the procedure, and the site was performed. The patient was positioned prone on the fluoroscopy table. A sterile prep and drape of the area was performed and approximately 6 cc total of 1% lidocaine was used to provide local anesthesia. Fluoroscopy was used to identify the RIGHT facet joints between L5-S1. A 25-gauge, 3.5 inch spinal needle was placed under fluoroscopic guidance in the oblique and lateral views, and directed to the junction of the superior articular process with the transverse process at each level (L5 and sacral ala, for the corresponding L4, and L5 medial branch nerves, respectively). After os was contacted at each junction, and aspiration was negative, approximately 0.5 cc of 2% lidocaine was injected at each junction. No paresthesias were elicited. No blood or spinal fluid was aspirated prior to injection. The same technique was then used to block the LEFT L4 and L5 medial branch nerves with the same injectate. The patient tolerated the procedure well. No complications were noted, and the patient was discharged home in stable condition. [facility] 02-03-2025 Miscellaneous Notes Formattin g of this note is different from the original. OPERATIVE NOTE DATE: 02/03/25 LOCATION: [facility] PROCEDURE: Bilateral L4 and L5 Medial Branch Nerve Blocks under Fluoroscopic Guidance PERFORMED BY: Chantell Cruz MD PRE-OPERATIVE DIAGNOSIS: Lumbar Spondylosis without Radiculopathy or Myelopathy POST-OPERATIVE DIAGNOSIS: Same ANESTHESIA: Local DESCRIPTION: History and physical examination were performed and informed consent obtained. A time out with 2 active identifiers of the patient, the procedure, and the site was performed. The patient was positioned prone on the fluoroscopy table. A sterile prep and drape of the area was performed and approximately 6 cc total of 1% lidocaine was used to provide local anesthesia. Fluoroscopy was used to identify the RIGHT facet joints between L5-S1. A 25-gauge, 3.5 inch spinal needle was placed under fluoroscopic guidance in the oblique and lateral views, and directed to the junction of the superior articular process with the transverse process at each level (L5 and sacral ala, for the corresponding L4, and L5 medial branch nerves, respectively). After os was contacted at each junction, and aspiration was negative, approximately 0.5 cc of 2% lidocaine was injected at each junction. No paresthesias were elicited. No blood or spinal fluid was aspirated prior to injection. The same technique was then used to block the LEFT L4 and L5 medial branch nerves with the same injectate. The patient tolerated the procedure well. No complications were noted, and the patient was discharged home in stable condition. documented in this encounter [facility] 02-03-2025 History and physical note Images from the original note were not included. [facility] [address] [facility] [address] Dept: [phone] SUBJECTIVE HPI: Milena Mcghee is a 79 y.o. year old here today for bilateral L4 and L5 MBB #2 today. Patient Active Problem List Diagnosis Date Noted Sacroiliitis (HCC) 02/25/2021 Epigastric pain 01/16/2021 BRBPR (bright red blood per rectum) 01/16/2021 Lumbar radiculopathy 09/10/2020 Closed nondisplaced fracture of base of fourth metacarpal bone of left hand 02/21/2019 Displaced fracture of base of fifth metacarpal bone of left hand 02/21/2019 Nausea & vomiting 02/14/2018 Nausea and vomiting 02/14/2018 Allergies Allergen Reactions Codeine Nausea And Vomiting and Unknown Other reaction(s): GI Upset, spinning adn vomiting Nitrofurantoin Hives and Other Prednisone Other reaction(s): nevous unable to sleep, Other, Unknown Seasonal Rash and Nausea And Vomiting Sulfa Antibiotics Rash, Swelling and Other Other reaction(s): swelling of the throat Other reaction(s): swelling of the throat Oxycodone Nausea And Vomiting Promethazine Other Other reaction(s): makes me act drunk Sulfasalazine Rash Family History Adopted: Yes Past Medical History: Diagnosis Date Age-related nuclear cataract of right eye 11/17/2024 Age-related nuclear cataract, left 12/22/2024 Cholecystitis, chronic Chronic back pain Chronic kidney disease STAGE 3 Closed nondisplaced fracture of base of fourth metacarpal bone of left hand 02/21/2019 Displaced fracture of base of fifth metacarpal bone of left hand 02/21/2019 Displaced fracture of base of fourth metacarpal bone of left hand 02/21/2019 GERD (gastroesophageal reflux disease) Hyperlipidemia Hypertension Osteoarthritis PONV (postoperative nausea and vomiting) Social History Socioeconomic History Marital status: Spouse name: Not on file Number of children: Not on file Years of education: Not on file Highest education level: Not on file Occupational History Not on file Tobacco Use Smoking status: Never Passive exposure: Never Smokeless tobacco: Never Vaping Use Vaping status: Never Used Substance and Sexual Activity Alcohol use: No Drug use: No Sexual activity: Not on file Other Topics Concern Not on file Social History Narrative Not on file Social Drivers of Health Financial Resource Strain: Not on file Food Insecurity: Not on file Transportation Needs: No Transportation Needs (11/14/2024) PRAPARE - Transportation Lack of Transportation (Medical): No Lack of Transportation (Non-Medical): No Physical Activity: Not on file Stress: Not on file Social Connections: Not on file Intimate Partner Violence: Not on file Housing Stability: Not on file Past Surgical History: Procedure Laterality Date BACK SURGERY 2013 and 2017 L3-4 fusion CHOLECYSTECTOMY COLONOSCOPY Current Outpatient Medications Medication Sig Dispense Refill acetaminophen (Tylenol) 500 MG tablet every 8 hours as needed. amLODIPine (Norvasc) 5 MG tablet Take 1 tablet by mouth every morning (before breakfast). atorvastatin (Lipitor) 10 MG tablet Take 1 tablet by mouth every morning (before breakfast). cholecalciferol (Vitamin D-3) 50 MCG (2000 UT) tablet Take by mouth daily. gabapentin (Neurontin) 300 MG capsule Take 600 mg by mouth every morning (before breakfast). ketorolac (Acular) 0.5 % ophthalmic solution INSTILL 1 DROP INTO AFFECTED EYE 4 TIMES DAILY. BRING TO SURGERY CENTER FOR USE AFTER CATARACT SURGERY lisinopril 20 MG tablet Take 1 tablet by mouth every morning (before breakfast). moxifloxacin (Vigamox) 0.5 % ophthalmic solution INSTILL 1 DROP INTO AFFECTED EYE FOUR TIMES A DAY. BRING TO SURGERY CENTER FOR USE AFTER CATARACT SURGERY. Multiple Vitamin (Multi Vitamin) tablet Take 1 tablet by mouth every morning (before breakfast). omeprazole (PriLOSEC) [address] capsule Take 20 mg by mouth daily. prednisoLONE acetate (Pred-Forte) 1 % ophthalmic suspension INSTILL 1 DROP INTO AFFECTED EYE FOUR TIMES A DAY. BRING TO SURGERY CENTER FOR USE AFTER CATARACT SURGERY. TAPER DIRECTED. predniSONE (Deltasone) 20 MG tablet Take 40 mg by mouth daily. (Patient not taking: Reported on 01/20/2025) traMADol (Ultram) 50 MG tablet TAKE 1 TABLET BY MOUTH AT BEDTIME for chronic pain Current Facility-Administered Medications Medication Dose Route Frequency Provider Last Rate Last Admin sodium chloride 0.9% (NS) flush 10 mL 10 mL IntraVENous 2 times per day ANGIE Solares CNP sodium chloride 0.9% (NS) flush 10 mL 10 mL IntraVENous PRN ANGIE Solares CNP Review of Systems Constitutional: Negative for fever. OBJECTIVE Vitals: 02/03/25 0857 BP: 116/62 Pulse: 74 Resp: 18 Temp: 36.1 C (97 F) TempSrc: Tympanic SpO2: 98% Physical Exam Constitutional: General: She is not in acute distress. Appearance: She is well-developed. She is not diaphoretic. Eyes: Conjunctiva/sclera: Right eye: Right conjunctiva is not injected. Left eye: Left conjunctiva is not injected. Comments: Pupils not pinpoint Pulmonary: Effort: Pulmonary effort is normal. No respiratory distress. Abdominal: General: There is no distension. Skin: General: Skin is warm. Findings: No bruising, erythema or lesion. Neurological: Mental Status: She is alert. Psychiatric: Mood and Affect: Mood and affect normal. Speech: Speech normal. IMAGING / OTHER STUDIES: LABS: ASSESSMENT No diagnosis found. Chronic low back pain (>1 year durationyear duration) -- in the setting of previous lumbar (L3-4) fusion. Her pain is primarily axial, and is still most consistent with lower lumbar facet arthropathy vs pain / dysfunction in the lower lumbar core stabilizing muscles... Not currently adequately controlled, but with good temporary relief from recent bilateral L4 and L5 MBB #1 PLAN - Will proceed with bilateral L4 and L5 MBB #2 today, after thoroughly discussing the procedure itself (as well as its diagnostic nature as part of a 3-step process toward eventual RFA), as well as its associated risks (including but not limited to bleeding/epidural hematoma, infection/epidural abscess, spinal cord/nerve root injury, inadvertent intrathecal/epidural injection, weakness, and increased pain), potential benefits, and alternatives. No follow-ups on file. [employer] [facility] Phone: 02-03-2025 History and physical note Images from the original note were not included. [facility] [address] [facility] [address] [address] [facility] [address] Dept: [phone] SUBJECTIVE HPI: Milena Mcghee is a 79 y.o. year old here today for bilateral L4 and L5 MBB #2 today. Patient Active Problem List Diagnosis Date Noted Sacroiliitis (HCC) 02/25/2021 Epigastric pain 01/16/2021 BRBPR (bright red blood per rectum) 01/16/2021 Lumbar radiculopathy 09/10/2020 Closed nondisplaced fracture of base of fourth metacarpal bone of left hand 02/21/2019 Displaced fracture of base of fifth metacarpal bone of left hand 02/21/2019 Nausea & vomiting 02/14/2018 Nausea and vomiting 02/14/2018 Allergies Allergen Reactions Codeine Nausea And Vomiting and Unknown Other reaction(s): GI Upset, spinning adn vomiting Nitrofurantoin Hives and Other Prednisone Other reaction(s): nevous unable to sleep, Other, Unknown Seasonal Rash and Nausea And Vomiting Sulfa Antibiotics Rash, Swelling and Other Other reaction(s): swelling of the throat Other reaction(s): swelling of the throat Oxycodone Nausea And Vomiting Promethazine Other Other reaction(s): makes me act drunk Sulfasalazine Rash Family History Adopted: Yes Past Medical History: Diagnosis Date Age-related nuclear cataract of right eye 11/17/2024 Age-related nuclear cataract, left 12/22/2024 Cholecystitis, chronic Chronic back pain Chronic kidney disease STAGE 3 Closed nondisplaced fracture of base of fourth metacarpal bone of left hand 02/21/2019 Displaced fracture of base of fifth metacarpal bone of left hand 02/21/2019 Displaced fracture of base of fourth metacarpal bone of left hand 02/21/2019 GERD (gastroesophageal reflux disease) Hyperlipidemia Hypertension Osteoarthritis PONV (postoperative nausea and vomiting) Social History Socioeconomic History Marital status: Spouse name: Not on file Number of children: Not on file Years of education: Not on file Highest education level: Not on file Occupational History Not on file Tobacco Use Smoking status: Never Passive exposure: Never Smokeless tobacco: Never Vaping Use Vaping status: Never Used Substance and Sexual Activity Alcohol use: No Drug use: No Sexual activity: Not on file Other Topics Concern Not on file Social History Narrative Not on file Social Drivers of Health Financial Resource Strain: Not on file Food Insecurity: Not on file Transportation Needs: No Transportation Needs (11/14/2024) PRAPARE - Transportation Lack of Transportation (Medical): No Lack of Transportation (Non-Medical): No Physical Activity: Not on file Stress: Not on file Social Connections: Not on file Intimate Partner Violence: Not on file Housing Stability: Not on file Past Surgical History: Procedure Laterality Date BACK SURGERY 2013 and 2017 L3-4 fusion CHOLECYSTECTOMY COLONOSCOPY Current Outpatient Medications Medication Sig Dispense Refill acetaminophen (Tylenol) 500 MG tablet every 8 hours as needed. amLODIPine (Norvasc) 5 MG tablet Take 1 tablet by mouth every morning (before breakfast). atorvastatin (Lipitor) 10 MG tablet Take 1 tablet by mouth every morning (before breakfast). cholecalciferol (Vitamin D-3) 50 MCG (1999 UT) tablet Take by mouth daily. gabapentin (Neurontin) 300 MG capsule Take 600 mg by mouth every morning (before breakfast). ketorolac (Acular) 0.5 % ophthalmic solution INSTILL 1 DROP INTO AFFECTED EYE 4 TIMES DAILY. BRING TO SURGERY CENTER FOR USE AFTER CATARACT SURGERY lisinopril 20 MG tablet Take 1 tablet by mouth every morning (before breakfast). moxifloxacin (Vigamox) 0.5 % ophthalmic solution INSTILL 1 DROP INTO AFFECTED EYE FOUR TIMES A DAY. BRING TO SURGERY CENTER FOR USE AFTER CATARACT SURGERY. Multiple Vitamin (Multi Vitamin) tablet Take 1 tablet by mouth every morning (before breakfast). omeprazole (PriLOSEC) [address] capsule Take 20 mg by mouth daily. prednisoLONE acetate (Pred-Forte) 1 % ophthalmic suspension INSTILL 1 DROP INTO AFFECTED EYE FOUR TIMES A DAY. BRING TO SURGERY CENTER FOR USE AFTER CATARACT SURGERY. TAPER DIRECTED. predniSONE (Deltasone) 20 MG tablet Take 40 mg by mouth daily. (Patient not taking: Reported on 01/20/2025) traMADol (Ultram) 50 MG tablet TAKE 1 TABLET BY MOUTH AT BEDTIME for chronic pain Current Facility-Administered Medications Medication Dose Route Frequency Provider Last Rate Last Admin sodium chloride 0.9% (NS) flush 10 mL 10 mL IntraVENous 2 times per day Polina Carpio APRN - [place] sodium chloride 0.9% (NS) flush 10 mL 10 mL IntraVENous PRN Polina Carpio APRN - [place] Review of Systems Constitutional: Negative for fever. OBJECTIVE Vitals: 02/03/25 0857 BP: 116/62 Pulse: 74 Resp: 18 Temp: 36.1 C (97 F) TempSrc: Tympanic SpO2: 98% Physical Exam Constitutional: General: She is not in acute distress. Appearance: She is well-developed. She is not diaphoretic. Eyes: Conjunctiva/sclera: Right eye: Right conjunctiva is not injected. Left eye: Left conjunctiva is not injected. Comments: Pupils not pinpoint Pulmonary: Effort: Pulmonary effort is normal. No respiratory distress. Abdominal: General: There is no distension. Skin: General: Skin is warm. Findings: No bruising, erythema or lesion. Neurological: Mental Status: She is alert. Psychiatric: Mood and Affect: Mood and affect normal. Speech: Speech normal. IMAGING / OTHER STUDIES: LABS: ASSESSMENT No diagnosis found. Chronic low back pain (>1 year durationyear duration) -- in the setting of previous lumbar (L3-4) fusion. Her pain is primarily axial, and is still most consistent with lower lumbar facet arthropathy vs pain / dysfunction in the lower lumbar core stabilizing muscles... Not currently adequately controlled, but with good temporary relief from recent bilateral L4 and L5 MBB #1 PLAN - Will proceed with bilateral L4 and L5 MBB #2 today, after thoroughly discussing the procedure itself (as well as its diagnostic nature as part of a 3-step process toward eventual RFA), as well as its associated risks (including but not limited to bleeding/epidural hematoma, infection/epidural abscess, spinal cord/nerve root injury, inadvertent intrathecal/epidural injection, weakness, and increased pain), potential benefits, and alternatives. No follow-ups on file. documented in this encounter [facility] 02-03-2025 Note [facility] [address] [facility] [address] Dept: [phone] SUBJECTIVE HPI: Milena Mcghee is a 79 y.o. year old here today for bilateral L4 and L5 MBB #2 today. Patient Active Problem List Diagnosis Date Noted Sacroiliitis (HCC) 02/25/2021 Epigastric pain 01/16/2021 BRBPR (bright red blood per rectum) 01/16/2021 Lumbar radiculopathy 09/10/2020 Closed nondisplaced fracture of base of fourth metacarpal bone of left hand 02/21/2019 Displaced fracture of base of fifth metacarpal bone of left hand 02/21/2019 Nausea & vomiting 02/14/2018 Nausea and vomiting 02/14/2018 Allergies Allergen Reactions Codeine Nausea And Vomiting and Unknown Other reaction(s): GI Upset, spinning adn vomiting Nitrofurantoin Hives and Other Prednisone Other reaction(s): nevous unable to sleep, Other, Unknown Seasonal Rash and Nausea And Vomiting Sulfa Antibiotics Rash, Swelling and Other Other reaction(s): swelling of the throat Other reaction(s): swelling of the throat Oxycodone Nausea And Vomiting Promethazine Other Other reaction(s): makes me act drunk Sulfasalazine Rash Family History Adopted: Yes Past Medical History: Diagnosis Date Age-related nuclear cataract of right eye 11/17/2024 Age-related nuclear cataract, left 12/22/2024 Cholecystitis, chronic Chronic back pain Chronic kidney disease STAGE 3 Closed nondisplaced fracture of base of fourth metacarpal bone of left hand 02/21/2019 Displaced fracture of base of fifth metacarpal bone of left hand 02/21/2019 Displaced fracture of base of fourth metacarpal bone of left hand 02/21/2019 GERD (gastroesophageal reflux disease) Hyperlipidemia Hypertension Osteoarthritis PONV (postoperative nausea and vomiting) Social History Socioeconomic History Marital status: Spouse name: Not on file Number of children: Not on file Years of education: Not on file Highest education level: Not on file Occupational History Not on file Tobacco Use Smoking status: Never Passive exposure: Never Smokeless tobacco: Never Vaping Use Vaping status: Never Used Substance and Sexual Activity Alcohol use: No Drug use: No Sexual activity: Not on file Other Topics Concern Not on file Social History Narrative Not on file Social Drivers of Health Financial Resource Strain: Not on file Food Insecurity: Not on file Transportation Needs: No Transportation Needs (11/14/2024) PRAPARE - Transportation Lack of Transportation (Medical): No Lack of Transportation (Non-Medical): No Physical Activity: Not on file Stress: Not on file Social Connections: Not on file Intimate Partner Violence: Not on file Housing Stability: Not on file Past Surgical History: Procedure Laterality Date BACK SURGERY 2013 and 2018 L3-4 fusion CHOLECYSTECTOMY COLONOSCOPY Current Outpatient Medications Medication Sig Dispense Refill acetaminophen (Tylenol) 500 MG tablet every 8 hours as needed. amLODIPine (Norvasc) 5 MG tablet Take 1 tablet by mouth every morning (before breakfast). atorvastatin (Lipitor) 10 MG tablet Take 1 tablet by mouth every morning (before breakfast). cholecalciferol (Vitamin D-3) 50 MCG (2000 UT) tablet Take by mouth daily. gabapentin (Neurontin) 300 MG capsule Take 600 mg by mouth every morning (before breakfast). ketorolac (Acular) 0.5 % ophthalmic solution INSTILL 1 DROP INTO AFFECTED EYE 4 TIMES DAILY. BRING TO SURGERY CENTER FOR USE AFTER CATARACT SURGERY lisinopril 20 MG tablet Take 1 tablet by mouth every morning (before breakfast). moxifloxacin (Vigamox) 0.5 % ophthalmic solution INSTILL 1 DROP INTO AFFECTED EYE FOUR TIMES A DAY. BRING TO SURGERY CENTER FOR USE AFTER CATARACT SURGERY. Multiple Vitamin (Multi Vitamin) tablet Take 1 tablet by mouth every morning (before breakfast). omeprazole (PriLOSEC) [address] capsule Take 20 mg by mouth daily. prednisoLONE acetate (Pred-Forte) 1 % ophthalmic suspension INSTILL 1 DROP INTO AFFECTED EYE FOUR TIMES A DAY. BRING TO SURGERY CENTER FOR USE AFTER CATARACT SURGERY. TAPER DIRECTED. predniSONE (Deltasone) 20 MG tablet Take 40 mg by mouth daily. (Patient not taking: Reported on 01/20/2025) traMADol (Ultram) 50 MG tablet TAKE 1 TABLET BY MOUTH AT BEDTIME for chronic pain Current Facility-Administered Medications Medication Dose Route Frequency Provider Last Rate Last Admin sodium chloride 0.9% (NS) flush 10 mL 10 mL IntraVENous 2 times per day Polina Carpio APRN - [place] sodium chloride 0.9% (NS) flush 10 mL 10 mL IntraVENous PRN Polina Carpio APRN - [place] Review of Systems Constitutional: Negative for fever. OBJECTIVE Vitals: 02/03/25 0857 BP: 116/62 Pulse: 74 Resp: 18 Temp: 36.1 ?C (97 ?F) TempSrc: Tympanic SpO2: 98% Physical Exam Constitutional: General: She is not in acute distress. Appearance: She is well-developed. She is not diaphoretic. Eyes: Conju (more content not included)... [facility] 01-27-2025 Telephone encount er Note Office will contact patient to schedule [facility] 01-27-2025 Miscellaneous Notes Formattin g of this note might be different from the original. Office will contact patient to schedule Name of caller: Milena Contact phone number: [phone] Relationship to Patient: patient Provider: Dr Cruz Practice: Pain Management Chief Complaint/Reason for Call: Pt calling back to check on next injection. Pt states initial injection lasted about 8 hours. Please call back to advise. Best time of day caller can be reached: Any Patient advised that office/PCP has 24-48 business hours to return their call: Yes Not sure what to make of that groin / leg pain, but the back pain in this case was 100% better for 5-6 hrs, so we can proceed with MBB #2 now under fluoro Message released to patient as written. Patient's further questions if applicable: Pt returned call from office and gave the following responses... Using the pain scale above what was the pain prior to the injection and what was the pain following the injection? Prior to injection pain level varied depending on activity. Pain level was 4/5 sitting and 8/9 with activity. 2.The percentage of relief from the lumbar MBB? Immediately after pain was 0 3. How long did the relief last? Lasted about 5 or 6 hours before Pt started feeling it wear off. Pt also advised on the drive home from the injection she had really intense groin and left leg pain and then the next morning upper right leg pain that was also really intense. Please advise Were all questions from office addressed or relayed to the patient from encounter: N/A Called patient to obtain relief information from procedure done on 01/20/2025 which was the first Bilateral L4-5 lumbar MBB. Upon returned call please obtain: (On the pain scale of 0 being no pain and 10 being the worst pain) Using the pain scale above what was the pain prior to the injection and what was the pain following the injection? 2.The percentage of relief from the lumbar MBB? 3. How long did the relief last? [facility] [facility] 01-26-2025 Telephone encount er Note Name of caller: Milena Contact phone number: [phone] Relationship to Patient: patient Provider: Dr Cruz Practice: Pain Management Chief Complaint/Reason for Call: Pt calling back to check on next injection. Pt states initial injection lasted about 8 hours. Please call back to advise. Best time of day caller can be reached: Any Patient advised that office/PCP has 24-48 business hours to return their call: Yes [facility] 01-26-2025 Miscellaneous Notes Formattin g of this note might be different from the original. Name of caller: Milena Contact phone number: [phone] Relationship to Patient: patient Provider: Dr Cruz Practice: Pain Management Chief Complaint/Reason for Call: Pt calling back to check on next injection. Pt states initial injection lasted about 8 hours. Please call back to advise. Best time of day caller can be reached: Any Patient advised that office/PCP has 24-48 business hours to return their call: Yes Not sure what to make of that groin / leg pain, but the back pain in this case was 100% better for 5-6 hrs, so we can proceed with MBB #2 now under fluoro Message released to patient as written. Patient's further questions if applicable: Pt returned call from office and gave the following responses... Using the pain scale above what was the pain prior to the injection and what was the pain following the injection? Prior to injection pain level varied depending on activity. Pain level was 4/5 sitting and 8/9 with activity. 2.The percentage of relief from the lumbar MBB? Immediately after pain was 0 3. How long did the relief last? Lasted about 5 or 6 hours before Pt started feeling it wear off. Pt also advised on the drive home from the injection she had really intense groin and left leg pain and then the next morning upper right leg pain that was also really intense. Please advise Were all questions from office addressed or relayed to the patient from encounter: N/A Called patient to obtain relief information from procedure done on 01/20/2025 which was the first Bilateral L4-5 lumbar MBB. Upon returned call please obtain: (On the pain scale of 0 being no pain and 10 being the worst pain) Using the pain scale above what was the pain prior to the injection and what was the pain following the injection? 2.The percentage of relief from the lumbar MBB? 3. How long did the relief last? documented in this encounter [employer] 01-25-2025 Telephone encount er Note Not sure what to make of that groin / leg pain, but the back pain in this case was 100% better for 5-6 hrs, so we can proceed with MBB #2 now under fluoro [employer] Work Phone: 01-25-2025 Miscellaneous Notes Formattin g of this note might be different from the original. Not sure what to make of that groin / leg pain, but the back pain in this case was 100% better for 5-6 hrs, so we can proceed with MBB #2 now under fluoro Message released to patient as written. Patient's further questions if applicable: Pt returned call from office and gave the following responses... Using the pain scale above what was the pain prior to the injection and what was the pain following the injection? Prior to injection pain level varied depending on activity. Pain level was 4/5 sitting and 8/9 with activity. 2.The percentage of relief from the lumbar MBB? Immediately after pain was 0 3. How long did the relief last? Lasted about 5 or 6 hours before Pt started feeling it wear off. Pt also advised on the drive home from the injection she had really intense groin and left leg pain and then the next morning upper right leg pain that was also really intense. Please advise Were all questions from office addressed or relayed to the patient from encounter: N/A Called patient to obtain relief information from procedure done on 01/20/2025 which was the first Bilateral L4-5 lumbar MBB. Upon returned call please obtain: (On the pain scale of 0 being no pain and 10 being the worst pain) Using the pain scale above what was the pain prior to the injection and what was the pain following the injection? 2.The percentage of relief from the lumbar MBB? 3. How long did the relief last? documented in this encounter [facility] 01-23-2025 Telephone encount er Note Message released to patient as written. Patient's further questions if applicable: Pt returned call from office and gave the following responses... Using the pain scale above what was the pain prior to the injection and what was the pain following the injection? Prior to injection pain level varied depending on activity. Pain level was 4/5 sitting and 8/9 with activity. 2.The percentage of relief from the lumbar MBB? Immediately after pain was 0 3. How long did the relief last? Lasted about 5 or 6 hours before Pt started feeling it wear off. Pt also advised on the drive home from the injection she had really intense groin and left leg pain and then the next morning upper right leg pain that was also really intense. Please advise Were all questions from office addressed or relayed to the patient from encounter: N/A [facility] 01-23-2025 Miscellaneous Notes Formattin g of this note might be different from the original. Message released to patient as written. Patient's further questions if applicable: Pt returned call from office and gave the following responses... Using the pain scale above what was the pain prior to the injection and what was the pain following the injection? Prior to injection pain level varied depending on activity. Pain level was 4/5 sitting and 8/9 with activity. 2.The percentage of relief from the lumbar MBB? Immediately after pain was 0 3. How long did the relief last? Lasted about 5 or 6 hours before Pt started feeling it wear off. Pt also advised on the drive home from the injection she had really intense groin and left leg pain and then the next morning upper right leg pain that was also really intense. Please advise Were all questions from office addressed or relayed to the patient from encounter: N/A Called patient to obtain relief information from procedure done on 01/20/2025 which was the first Bilateral L4-5 lumbar MBB. Upon returned call please obtain: (On the pain scale of 0 being no pain and 10 being the worst pain) Using the pain scale above what was the pain prior to the injection and what was the pain following the injection? 2.The percentage of relief from the lumbar MBB? 3. How long did the relief last? documented in this encounter [facility] 01-23-2025 Note Called patient to ob tain relief information from procedure done on 01/20/2025 which was the first Bilateral L4-5 lumbar MBB. Upon returned call please obtain: (On the pain scale of 0 being no pain and 10 being the worst pain) Using the pain scale above what was the pain prior to the injection and what was the pain following the injection? 2.The percentage of relief from the lumbar MBB? 3. How long did the relief last? [facility] 01-23-2025 Telephone encount er Note Called patient to obtain relief information from procedure done on 01/20/2025 which was the first Bilateral L4-5 lumbar MBB. Upon returned call please obtain: (On the pain scale of 0 being no pain and 10 being the worst pain) Using the pain scale above what was the pain prior to the injection and what was the pain following the injection? 2.The percentage of relief from the lumbar MBB? 3. How long did the relief last? [facility] 01-20-2025 Hospital Discharg e instructions Chantell Cruz MD - 01/20/2025 1:24 PM EDT - Resume normal activity as tolerated... and pay close attention to your usual back pain over the next few hours (and fill out pain diary provided to you today) - Resume normal diet as tolerated - If injection site is sore, can ice for pain relief - No tubs, baths, pools for 24 hours (showers are okay). - Call Dr Cruz's office (or go to ER after hours or on weekends) if having significantly worsened back or leg pain, significant leg weakness, loss of bowel/bladder control, inability to urinate, fever, or severe positional headache (headache that is significant while upright, but immediately improved with lying flat) - Dr Cruz's office will call you this week to follow-up documented in this encounter [facility] 01-20-2025 Procedure note OPERATIVE NOTE DATE: 01/21/24 LOCATION: [facility] PROCEDURE: Bilateral L4 and L5 Medial Branch Nerve Blocks under Fluoroscopic Guidance PERFORMED BY: Chantell Cruz MD PRE-OPERATIVE DIAGNOSIS: Lumbar Spondylosis without Radiculopathy or Myelopathy POST-OPERATIVE DIAGNOSIS: Same ANESTHESIA: Local DESCRIPTION: History and physical examination were performed and informed consent obtained. A time out with 2 active identifiers of the patient, the procedure, and the site was performed. The patient was positioned prone on the fluoroscopy table. A sterile prep and drape of the area was performed and approximately 8 cc total of 1% lidocaine was used to provide local anesthesia. Fluoroscopy was used to identify the RIGHT facet joints between L5-S1. A 25-gauge, 3.5 inch spinal needle was placed under fluoroscopic guidance in the oblique and lateral views, and directed to the junction of the superior articular process with the transverse process at each level (L5 and sacral ala, for the corresponding L4, and L5 medial branch nerves, respectively). After os was contacted at each junction, and aspiration was negative, approximately 0.5 cc of 2% lidocaine was injected at each junction. No paresthesias were elicited. No blood or spinal fluid was aspirated prior to injection. The same technique was then used to block the LEFT L4 and L5 medial branch nerves with the same injectate. The patient tolerated the procedure well. No complications were noted, and the patient was discharged home in stable condition. [facility] 01-20-2025 Miscellaneous Notes Formattin g of this note is different from the original. OPERATIVE NOTE DATE: 01/21/24 LOCATION: [facility] PROCEDURE: Bilateral L4 and L5 Medial Branch Nerve Blocks under Fluoroscopic Guidance PERFORMED BY: Chantell Cruz MD PRE-OPERATIVE DIAGNOSIS: Lumbar Spondylosis without Radiculopathy or Myelopathy POST-OPERATIVE DIAGNOSIS: Same ANESTHESIA: Local DESCRIPTION: History and physical examination were performed and informed consent obtained. A time out with 2 active identifiers of the patient, the procedure, and the site was performed. The patient was positioned prone on the fluoroscopy table. A sterile prep and drape of the area was performed and approximately 8 cc total of 1% lidocaine was used to provide local anesthesia. Fluoroscopy was used to identify the RIGHT facet joints between L5-S1. A 25-gauge, 3.5 inch spinal needle was placed under fluoroscopic guidance in the oblique and lateral views, and directed to the junction of the superior articular process with the transverse process at each level (L5 and sacral ala, for the corresponding L4, and L5 medial branch nerves, respectively). After os was contacted at each junction, and aspiration was negative, approximately 0.5 cc of 2% lidocaine was injected at each junction. No paresthesias were elicited. No blood or spinal fluid was aspirated prior to injection. The same technique was then used to block the LEFT L4 and L5 medial branch nerves with the same injectate. The patient tolerated the procedure well. No complications were noted, and the patient was discharged home in stable condition. Discharged to home . Local anesthesia, patient escorted to waiting room. . AVS and education reviewed with patient she verbalized understanding. All questions answered and patient denies dizziness or nausea. Denies any numbness or weakness, vital signs are stable. Patient valuables sent. documented in this encounter [facility] 01-20-2025 Attending History and physical note H&P reviewed. The patient was examined and there are no changes to the H&P. Will proceed with bilateral L4 and L5 MBB today. Source Note - Chantell Cruz MD - 12/30/2024 3:45 PM EDT Images from the original note were not included. [facility] [id number] [facility] [address] [facility] [address] Dept: [phone] Dept Chief Complaint Patient presents with Back Pain SUBJECTIVE HPI: Milena Mcghee is a 79 y.o. year old here today for follow-up of chronic low back pain. [facility] Her back pain has been progressively worsening since then. LOCATION OF PAIN: Across low back (not just left-sided anymore) RADIATES: into bilateral posterolateral hips / buttocks CONSTANT/INTERMITTENT: Constant NUMBNESS/TINGLING? denies WEAKNESS? denies URINARY/FECAL INCONTINENCE? No SADDLE ANESTHESIA? no INTERFERING WITH SLEEP? No CURRENT PAIN MEDS: Tylenol 1000 mg PRN (usually once or twice a day), Gabapentin 600 mg daily ANY SIGNIFICANT SIDE EFFECTS FROM CURRENT PAIN MEDS? no ARE THEY PROVIDING ADEQUATE ANALGESIA? mild ARE THEY PROVIDING ADEQUATE FUNCTIONAL IMPROVEMENT? mild PAIN MEDS PREVIOUSLY TRIED/FAILED: Meloxicam (had helped but had to stop due to kidney function concerns), duloxetine (side effects), lidocaine patches OTHER CURRENT / PREVIOUS TREATMENT Physical therapy -- Last did shortly after her most recent back surgery in 2017 TENS -- No Chiropractor -- No Acupuncture -- No Prior Pain Clinic -- Dr Morrison in [place] Chronic opiates -- No Previous Pain Procedures -- some previous lumbar injections prior to her back surgeries 09/10/20 -- LEFT L4 and L5 TFESI -- >50% improvement in leg symptoms, only 2 days of relief of axial back pain 02/25/21 -- LEFT SI joint -- 30% improvement in pain, >50% improvement in function / ambulation Patient Active Problem List Diagnosis Date Noted Sacroiliitis (HCC) 02/25/2021 Epigastric pain 01/16/2021 BRBPR (bright red blood per rectum) 01/16/2021 Lumbar radiculopathy 09/10/2020 Closed nondisplaced fracture of base of fourth metacarpal bone of left hand 02/21/2019 Displaced fracture of base of fifth metacarpal bone of left hand 02/21/2019 Nausea & vomiting 02/14/2018 Nausea and vomiting 02/14/2018 Allergies Allergen Reactions Codeine Nausea And Vomiting and Unknown Other reaction(s): GI Upset, spinning adn vomiting Nitrofurantoin Hives and Other Prednisone Other reaction(s): nevous unable to sleep, Other, Unknown Seasonal Rash and Nausea And Vomiting Sulfa Antibiotics Rash, Swelling and Other Other reaction(s): swelling of the throat Other reaction(s): swelling of the throat Oxycodone Nausea And Vomiting Promethazine Other Other reaction(s): makes me act drunk Sulfasalazine Rash Family History Adopted: Yes Past Medical History: Diagnosis Date Age-related nuclear cataract of right eye 11/17/2024 Age-related nuclear cataract, left 12/22/2024 Cholecystitis, chronic Chronic back pain Chronic kidney disease STAGE 3 Closed nondisplaced fracture of base of fourth metacarpal bone of left hand 02/21/2019 Displaced fracture of base of fifth metacarpal bone of left hand 02/21/2019 Displaced fracture of base of fourth metacarpal bone of left hand 02/21/2019 GERD (gastroesophageal reflux disease) Hyperlipidemia Hypertension Osteoarthritis PONV (postoperative nausea and vomiting) Social History Socioeconomic History Marital status: Spouse name: Not on file Number of children: Not on file Years of education: Not on file Highest education level: Not on file Occupational History Not on file Tobacco Use Smoking status: Never Passive exposure: Never Smokeless tobacco: Never Vaping Use Vaping status: Never Used Substance and Sexual Activity Alcohol use: No Drug use: No Sexual activity: Not on file Other Topics Concern Not on file Social History Narrative Not on file Social Drivers of Health Financial Resource Strain: Not on file Food Insecurity: Not on file Transportation Needs: No Transportation Needs (11/14/2024) PRAPARE - Transportation Lack of Transportation (Medical): No Lack of Transportation (Non-Medical): No Physical Activity: Not on file Stress: Not on file Social Connections: Not on file Intimate Partner Violence: Not on file Housing Stability: Not on file Past Surgical History: Procedure Laterality Date BACK SURGERY 2013 and 2017 L3-4 fusion CHOLECYSTECTOMY COLONOSCOPY Current Outpatient Medications Medication Sig Dispense Refill acetaminophen (Tylenol) 500 MG tablet every 8 hours as needed. amLODIPine (Norvasc) 5 MG tablet Take 1 tablet by mouth every morning (before breakfast). atorvastatin (Lipitor) 10 MG tablet Take 1 tablet by mouth every morning (before breakfast). cholecalciferol (Vitamin D-3) 50 MCG (2000 UT) tablet Take by mouth daily. gabapentin (Neurontin) 300 MG capsule Take 600 mg by mouth every morning (before breakfast). ketorolac (Acular) 0.5 % ophthalmic solution INSTILL 1 DROP INTO AFFECTED EYE 4 TIMES DAILY. BRING TO SURGERY CENTER FOR USE AFTER CATARACT SURGERY lisinopril 20 MG tablet Take 1 tablet by mouth every morning (before breakfast). moxifloxacin (Vigamox) 0.5 % ophthalmic solution INSTILL 1 DROP INTO AFFECTED EYE FOUR TIMES A DAY. BRING TO SURGERY CENTER FOR USE AFTER CATARACT SURGERY. Multiple Vitamin (Multi Vitamin) tablet Take 1 tablet by mouth every morning (before breakfast). omeprazole (PriLOSEC) [address] capsule Take 20 mg by mouth daily. prednisoLONE acetate (Pred-Forte) 1 % ophthalmic suspension INSTILL 1 DROP INTO AFFECTED EYE FOUR TIMES A DAY. BRING TO SURGERY CENTER FOR USE AFTER CATARACT SURGERY. TAPER DIRECTED. predniSONE (Deltasone) 20 MG tablet Take 40 mg by mouth daily. traMADol (Ultram) 50 MG tablet TAKE 1 TABLET BY MOUTH AT BEDTIME for chronic pain No current facility-administered medications for this visit. Review of Systems OBJECTIVE Vitals: 12/30/24 1558 BP: 120/78 BP Location: Right arm Patient Position: Sitting BP Cuff Size: Large adult Pulse: 84 Weight: 176 lb (79.8 kg) Height: 5' 5 (1.651 m) Physical Exam Constitutional: General: She is not in acute distress. Appearance: She is well-developed. She is not diaphoretic. Eyes: Conjunctiva/sclera: Right eye: Right conjunctiva is not injected. Left eye: Left conjunctiva is not injected. Comments: Pupils not pinpoint Pulmonary: Effort: Pulmonary effort is normal. No respiratory distress. Abdominal: General: There is no distension. Skin: General: Skin is warm. Findings: No bruising, erythema or lesion. Neurological: Mental Status: She is alert. Psychiatric: Mood and Affect: Mood and affect normal. Speech: Speech normal. DETAILED MSK/NEURO: Lumbar Spine/Lower Extremity Inspection: previous surgical scar noted within the lumbar region. Palpation: Midline Paraspinal - Right Paraspinal - Left Lumbar w/o pain + pain + pain Range of motion: Flexion Extension Rotation Lateral Bend Lumbar Full - w/ pain Full - w/ pain Limited with pain Limited with pain IMAGING / OTHER STUDIES: 08/08/19 MRI Lumbar Spine Five lumbar type vertebra are assumed for purposes of numbering on this examination. Postsurgical changes from the L3-L5 levels with new bilateral pedicle adis and screw fixation. No significant fluid collection surrounding the hardware.. No abnormal intrathecal postcontrast enhancement or clumping of nerve roots. The pedicles of the spinal canal superior to this are shortened resulting in relative congenital central canal stenosis with superimposed degenerative change. The lumbar spine is in normal overall alignment without evidence of spondylolisthesis. The conus terminates at a normal L1 level. No abnormal signal is appreciated within the distal cord. T12-L1: No disc bulge or disc protrusion. No central spinal canal stenosis. No neural foraminal narrowing. L1-L2: Mild facet arthropathy and ligamentum flavum enfolding. 3 mm right neural foraminal disc protrusion, abutting the exiting nerve root. Moderate right neural foraminal narrowing. Mild left neural foraminal narrowing. No additional disc bulge or disc protrusion. No superimposed central spinal canal stenosis. L2-L3: 3 mm circumferential broad-based disc bulge. Bilateral facet arthropathy contributes to moderate bilateral neural foraminal narrowing, right greater than left. No superimposed central canal stenosis. L3-L4: Intervertebral disc space narrowing with facet arthropathy. Tiny disc marginal endplate osteophytosis. The central canal is patent. No evidence of neural foraminal narrowing. L4-L5: Bilateral facet arthropathy. 3 mm circumferential broad-based disc bulge, extending into the neural foramina where it abuts the exiting nerve roots and contributes to moderate bilateral neural foraminal narrowing. There appears to be extrusion of disc contents within the left neural foramen (image 11 series 2). No superimposed central canal narrowing. L5-S1: Advanced bilateral facet arthropathy. No significant disc bulge or protrusion. The central canal is patent. No significant bilateral neural foraminal narrowing. Impression: 1.Multilevel degenerative changes as detailed above. Postsurgical changes from L3 to L5 with bilateral pedicle adis and screw fixation. 2.At L1-L2 there is moderate right and mild left neural foraminal narrowing. Overall this level is similar to the prior exam. 3.At L2-L3 there is moderate bilateral neural foraminal narrowing, right greater than left. Overall this level is similar to the prior exam. 4.At L4-L5 there is a broad-based disc bulge appears to abut the exiting nerve roots and contributes to moderate bilateral neural foraminal narrowing. There is new extrusion of disc contents within the left lateral foramen. LABS: ASSESSMENT 1. Lumbar facet arthropathy 1) Chronic low back pain (>1 year durationyear duration) -- in the setting of previous lumbar (L3-4) fusion. Her pain is primarily axial, and is still most consistent with lower lumbar facet arthropathy vs pain / dysfunction in the lower lumbar core stabilizing muscles... Not currently adequately controlled PLAN - Continue Tylenol up to 3000 mg total per day PRN - Can continue gabapentin 600 mg daily for now - Encouraged working on core back strengthening / extension exercises on a routine basis as tolerated - Will also set her up for bilateral L4 and L5 MBB under fluoro, after thoroughly discussing the procedure itself (as well as its diagnostic nature as part of a 3-step process toward eventual RFA), as well as its associated risks (including but not limited to bleeding/epidural hematoma, infection/epidural abscess, spinal cord/nerve root injury, inadvertent intrathecal/epidural injection, weakness, and increased pain), potential benefits, and alternatives. No follow-ups on file. [employer] Work Phone: 01-20-2025 Note H&P reviewed. The mary gomez was examined and there are no changes to the H&P. Will proceed with bilateral L4 and L5 MBB today. [employer] [facility] 01-20-2025 History and physical note H&P reviewed. The patient was examined and there are no changes to the H&P. Will proceed with bilateral L4 and L5 MBB today. Source Note - Chantell Cruz MD - 12/30/2024 3:45 PM EDT Images from the original note were not included. [facility] [id number] [facility] [address] [facility] [address] Dept: [phone] Dept Chief Complaint Patient presents with Back Pain SUBJECTIVE HPI: Milena Mcghee is a 79 y.o. year old here today for follow-up of chronic low back pain. [facility] Her back pain has been progressively worsening since then. LOCATION OF PAIN: Across low back (not just left-sided anymore) RADIATES: into bilateral posterolateral hips / buttocks CONSTANT/INTERMITTENT: Constant NUMBNESS/TINGLING? denies WEAKNESS? denies URINARY/FECAL INCONTINENCE? No SADDLE ANESTHESIA? no INTERFERING WITH SLEEP? No CURRENT PAIN MEDS: Tylenol 1000 mg PRN (usually once or twice a day), Gabapentin 600 mg daily ANY SIGNIFICANT SIDE EFFECTS FROM CURRENT PAIN MEDS? no ARE THEY PROVIDING ADEQUATE ANALGESIA? mild ARE THEY PROVIDING ADEQUATE FUNCTIONAL IMPROVEMENT? mild PAIN MEDS PREVIOUSLY TRIED/FAILED: Meloxicam (had helped but had to stop due to kidney function concerns), duloxetine (side effects), lidocaine patches OTHER CURRENT / PREVIOUS TREATMENT Physical therapy -- Last did shortly after her most recent back surgery in 2017 TENS -- No Chiropractor -- No Acupuncture -- No Prior Pain Clinic -- Dr Morrison in [place] Chronic opiates -- No Previous Pain Procedures -- some previous lumbar injections prior to her back surgeries 09/10/20 -- LEFT L4 and L5 TFESI -- >50% improvement in leg symptoms, only 2 days of relief of axial back pain 02/25/21 -- LEFT SI joint -- 30% improvement in pain, >50% improvement in function / ambulation Patient Active Problem List Diagnosis Date Noted Sacroiliitis (HCC) 02/25/2021 Epigastric pain 01/16/2021 BRBPR (bright red blood per rectum) 01/16/2021 Lumbar radiculopathy 09/10/2020 Closed nondisplaced fracture of base of fourth metacarpal bone of left hand 02/21/2019 Displaced fracture of base of fifth metacarpal bone of left hand 02/21/2019 Nausea & vomiting 02/14/2018 Nausea and vomiting 02/14/2018 Allergies Allergen Reactions Codeine Nausea And Vomiting and Unknown Other reaction(s): GI Upset, spinning adn vomiting Nitrofurantoin Hives and Other Prednisone Other reaction(s): nevous unable to sleep, Other, Unknown Seasonal Rash and Nausea And Vomiting Sulfa Antibiotics Rash, Swelling and Other Other reaction(s): swelling of the throat Other reaction(s): swelling of the throat Oxycodone Nausea And Vomiting Promethazine Other Other reaction(s): makes me act drunk Sulfasalazine Rash Family History Adopted: Yes Past Medical History: Diagnosis Date Age-related nuclear cataract of right eye 11/17/2024 Age-related nuclear cataract, left 12/22/2024 Cholecystitis, chronic Chronic back pain Chronic kidney disease STAGE 3 Closed nondisplaced fracture of base of fourth metacarpal bone of left hand 02/21/2019 Displaced fracture of base of fifth metacarpal bone of left hand 02/21/2019 Displaced fracture of base of fourth metacarpal bone of left hand 02/21/2019 GERD (gastroesophageal reflux disease) Hyperlipidemia Hypertension Osteoarthritis PONV (postoperative nausea and vomiting) Social History Socioeconomic History Marital status: Spouse name: Not on file Number of children: Not on file Years of education: Not on file Highest education level: Not on file Occupational History Not on file Tobacco Use Smoking status: Never Passive exposure: Never Smokeless tobacco: Never Vaping Use Vaping status: Never Used Substance and Sexual Activity Alcohol use: No Drug use: No Sexual activity: Not on file Other Topics Concern Not on file Social History Narrative Not on file Social Drivers of Health Financial Resource Strain: Not on file Food Insecurity: Not on file Transportation Needs: No Transportation Needs (11/14/2024) PRAPARE - Transportation Lack of Transportation (Medical): No Lack of Transportation (Non-Medical): No Physical Activity: Not on file Stress: Not on file Social Connections: Not on file Intimate Partner Violence: Not on file Housing Stability: Not on file Past Surgical History: Procedure Laterality Date BACK SURGERY 2013 and 2018 L3-4 fusion CHOLECYSTECTOMY COLONOSCOPY Current Outpatient Medications Medication Sig Dispense Refill acetaminophen (Tylenol) 500 MG tablet every 8 hours as needed. amLODIPine (Norvasc) 5 MG tablet Take 1 tablet by mouth every morning (before breakfast). atorvastatin (Lipitor) 10 MG tablet Take 1 tablet by mouth every morning (before breakfast). cholecalciferol (Vitamin D-3) 50 MCG (2000 UT) tablet Take by mouth daily. gabapentin (Neurontin) 300 MG capsule Take 600 mg by mouth every morning (before breakfast). ketorolac (Acular) 0.5 % ophthalmic solution INSTILL 1 DROP INTO AFFECTED EYE 4 TIMES DAILY. BRING TO SURGERY CENTER FOR USE AFTER CATARACT SURGERY lisinopril 20 MG tablet Take 1 tablet by mouth every morning (before breakfast). moxifloxacin (Vigamox) 0.5 % ophthalmic solution INSTILL 1 DROP INTO AFFECTED EYE FOUR TIMES A DAY. BRING TO SURGERY CENTER FOR USE AFTER CATARACT SURGERY. Multiple Vitamin (Multi Vitamin) tablet Take 1 tablet by mouth every morning (before breakfast). omeprazole (PriLOSEC) [address] capsule Take 20 mg by mouth daily. prednisoLONE acetate (Pred-Forte) 1 % ophthalmic suspension INSTILL 1 DROP INTO AFFECTED EYE FOUR TIMES A DAY. BRING TO SURGERY CENTER FOR USE AFTER CATARACT SURGERY. TAPER DIRECTED. predniSONE (Deltasone) 20 MG tablet Take 40 mg by mouth daily. traMADol (Ultram) 50 MG tablet TAKE 1 TABLET BY MOUTH AT BEDTIME for chronic pain No current facility-administered medications for this visit. Review of Systems OBJECTIVE Vitals: 12/30/24 1558 BP: 120/78 BP Location: Right arm Patient Position: Sitting BP Cuff Size: Large adult Pulse: 84 Weight: 176 lb (79.8 kg) Height: 5' 5 (1.651 m) Physical Exam Constitutional: General: She is not in acute distress. Appearance: She is well-developed. She is not diaphoretic. Eyes: Conjunctiva/sclera: Right eye: Right conjunctiva is not injected. Left eye: Left conjunctiva is not injected. Comments: Pupils not pinpoint Pulmonary: Effort: Pulmonary effort is normal. No respiratory distress. Abdominal: General: There is no distension. Skin: General: Skin is warm. Findings: No bruising, erythema or lesion. Neurological: Mental Status: She is alert. Psychiatric: Mood and Affect: Mood and affect normal. Speech: Speech normal. DETAILED MSK/NEURO: Lumbar Spine/Lower Extremity Inspection: previous surgical scar noted within the lumbar region. Palpation: Midline Paraspinal - Right Paraspinal - Left Lumbar w/o pain + pain + pain Range of motion: Flexion Extension Rotation Lateral Bend Lumbar Full - w/ pain Full - w/ pain Limited with pain Limited with pain IMAGING / OTHER STUDIES: 08/08/19 MRI Lumbar Spine Five lumbar type vertebra are assumed for purposes of numbering on this examination. Postsurgical changes from the L3-L5 levels with new bilateral pedicle adis and screw fixation. No significant fluid collection surrounding the hardware.. No abnormal intrathecal postcontrast enhancement or clumping of nerve roots. The pedicles of the spinal canal superior to this are shortened resulting in relative congenital central canal stenosis with superimposed degenerative change. The lumbar spine is in normal overall alignment without evidence of spondylolisthesis. The conus terminates at a normal L1 level. No abnormal signal is appreciated within the distal cord. T12-L1: No disc bulge or disc protrusion. No central spinal canal stenosis. No neural foraminal narrowing. L1-L2: Mild facet arthropathy and ligamentum flavum enfolding. 3 mm right neural foraminal disc protrusion, abutting the exiting nerve root. Moderate right neural foraminal narrowing. Mild left neural foraminal narrowing. No additional disc bulge or disc protrusion. No superimposed central spinal canal stenosis. L2-L3: 3 mm circumferential broad-based disc bulge. Bilateral facet arthropathy contributes to moderate bilateral neural foraminal narrowing, right greater than left. No superimposed central canal stenosis. L3-L4: Intervertebral disc space narrowing with facet arthropathy. Tiny disc marginal endplate osteophytosis. The central canal is patent. No evidence of neural foraminal narrowing. L4-L5: Bilateral facet arthropathy. 3 mm circumferential broad-based disc bulge, extending into the neural foramina where it abuts the exiting nerve roots and contributes to moderate bilateral neural foraminal narrowing. There appears to be extrusion of disc contents within the left neural foramen (image 11 series 2). No superimposed central canal narrowing. L5-S1: Advanced bilateral facet arthropathy. No significant disc bulge or protrusion. The central canal is patent. No significant bilateral neural foraminal narrowing. Impression: 1.Multilevel degenerative changes as detailed above. Postsurgical changes from L3 to L5 with bilateral pedicle adis and screw fixation. 2.At L1-L2 there is moderate right and mild left neural foraminal narrowing. Overall this level is similar to the prior exam. 3.At L2-L3 there is moderate bilateral neural foraminal narrowing, right greater than left. Overall this level is similar to the prior exam. 4.At L4-L5 there is a broad-based disc bulge appears to abut the exiting nerve roots and contributes to moderate bilateral neural foraminal narrowing. There is new extrusion of disc contents within the left lateral foramen. LABS: ASSESSMENT 1. Lumbar facet arthropathy 1) Chronic low back pain (>1 year durationyear duration) -- in the setting of previous lumbar (L3-4) fusion. Her pain is primarily axial, and is still most consistent with lower lumbar facet arthropathy vs pain / dysfunction in the lower lumbar core stabilizing muscles... Not currently adequately controlled PLAN - Continue Tylenol up to 3000 mg total per day PRN - Can continue gabapentin 600 mg daily for now - Encouraged working on core back strengthening / extension exercises on a routine basis as tolerated - Will also set her up for bilateral L4 and L5 MBB under fluoro, after thoroughly discussing the procedure itself (as well as its diagnostic nature as part of a 3-step process toward eventual RFA), as well as its associated risks (including but not limited to bleeding/epidural hematoma, infection/epidural abscess, spinal cord/nerve root injury, inadvertent intrathecal/epidural injection, weakness, and increased pain), potential benefits, and alternatives. No follow-ups on file. documented in this encounter [facility] 01-20-2025 Nurse Note Discharged to home . Local anesthesia, patient escorted to waiting room. . AVS and education reviewed with patient she verbalized understanding. All questions answered and patient denies dizziness or nausea. Denies any numbness or weakness, vital signs are stable. Patient valuables sent. [facility] 01-04-2025 Evaluation note Diagnosis Onset Date Resolution Cystitis acute January 04 5:33pm Spinal stenosis, lumbar region without neurogenic claudication acute January 042024 5:33pm Cystitis acute January 17 4:12pm Cystitis acute February 28, 2025 4:11pm Chronic lower back pain chronic M 2024 4:11pm Hyperlipidemia LDL goal <130 acute March 14, 2025 3:49pm Multiple joint pain acute February 172024 3:49pm Hypertension chronic March 14 3:49pm Chronic kidney disease, stage 3b acute April 05, 2025 4:42pm Vitamin D deficiency, unspecified acute April 05, 2025 4:42pm [facility] Work Phone: 1(951) 261-641803-14-2025 History of Present illness Narrative* Chantell Cruz MD - 12/30/2024 3:45 PM EDT Images from the original note were not included. [facility] [id number] [facility] [facility] [address] [address] [facility] [address] Dept: [phone] Dept Chief Complaint Patient presents with Back Pain SUBJECTIVE HPI: Milena Mcghee is a 79 y.o. year old here today for follow-up of chronic low back pain. She was lastseen by me back in 10/2023. Her back pain has been progressively worsening since then. LOCATION OF PAIN: Across low back (not just left-sided anymore) RADIATES: into bilateral posterolateral hips / buttocks CONSTANT/INTERMITTENT: Constant NUMBNESS/TINGLING? denies WEAKNESS? denies URINARY/FECAL INCONTINENCE? No SADDLE ANESTHESIA? no INTERFERING WITH SLEEP? No CURRENT PAIN MEDS: Tylenol 1000 mg PRN (usually once or twice a day), Gabapentin 600 mg daily ANY SIGNIFICANT SIDE EFFECTS FROM CURRENT PAIN MEDS? no ARE THEY PROVIDING ADEQUATE ANALGESIA? mild ARE THEY PROVIDING ADEQUATE FUNCTIONAL IMPROVEMENT? mild PAIN MEDS PREVIOUSLY TRIED/FAILED: Meloxicam (had helped but had to stop due to kidney function concerns), duloxetine (side effects), lidocaine patches OTHER CURRENT / PREVIOUS TREATMENT Physical therapy -- Last did shortly after her most recent back surgery in 2017 TENS -- No Chiropractor -- No Acupuncture -- No Prior Pain Clinic -- Dr Morrison in [place] Chronic opiates -- No Previous Pain Procedures -- some previous lumbar injections prior to her back surgeries 09/10/20 -- LEFT L4 and L5 TFESI -- >50% improvement in leg symptoms, only 2 days of relief of axial back pain 02/25/21 -- LEFT SI joint -- 30% improvement in pain, >50% improvement in function / ambulation Patient Active Problem List Diagnosis Date Noted Sacroiliitis (HCC) 02/25/2021 Epigastric pain 01/16/2021 BRBPR (bright red blood per rectum) 01/16/2021 Lumbar radiculopathy 09/10/2020 Closed nondisplaced fracture of base of fourth metacarpal bone of left hand 02/21/2019 Displaced fracture of base of fifth metacarpal bone of left hand 02/21/2019 Nausea & vomiting 02/14/2018 Nausea and vomiting 02/14/2018 Allergies Allergen Reactions Codeine Nausea And Vomiting and Unknown Other reaction(s): GI Upset, spinning adn vomiting Nitrofurantoin Hives and Other Prednisone Other reaction(s): nevous unable to sleep, Other, Unknown Seasonal Rash and Nausea And Vomiting Sulfa Antibiotics Rash, Swelling and Other Other reaction(s): swelling of the throat Other reaction(s): swelling of the throat Oxycodone Nausea And Vomiting Promethazine Other Other reaction(s): makes me act drunk Sulfasalazine Rash Family History Adopted: Yes Past Medical History: Diagnosis Date Age-related nuclear cataract of right eye 11/17/2024 Age-related nuclear cataract, left 12/22/2024 Cholecystitis, chronic Chronic back pain Chronic kidney disease STAGE 3 Closed nondisplaced fracture of base of fourth metacarpal bone of left hand 02/21/2019 Displaced fracture of base of fifth metacarpal bone of left hand 02/21/2019 Displaced fracture of base of fourth metacarpal bone of left hand 02/21/2019 GERD (gastroesophageal reflux disease) Hyperlipidemia Hypertension Osteoarthritis PONV (postoperative nausea and vomiting) Social History Socioeconomic History Marital status: Spouse name: Not on file Number of children: Not on file Years of education: Not on file Highest education level: Not on file Occupational History Not on file Tobacco Use Smoking status: Never Passive exposure: Never Smokeless tobacco: Never Vaping Use Vaping status: Never Used Substance and Sexual Activity Alcohol use: No Drug use: No Sexual activity: Not on file Other Topics Concern Not on file Social History Narrative Not on file Social Drivers of Health Financial Resource Strain: Not on file Food Insecurity: Not on file Transportation Needs: No Transportation Needs (11/14/2024) PRAPARE - Transportation Lack of Transportation (Medical): No Lack of Transportation (Non-Medical): No Physical Activity: Not on file Stress: Not on file Social Connections: Not on file Intimate Partner Violence: Not on file Housing Stability: Not on file Past Surgical History: Procedure Laterality Date BACK SURGERY 2013 and 2017 L3-4 fusion CHOLECYSTECTOMY COLONOSCOPY Current Outpatient Medications Medication Sig Dispense Refill acetaminophen (Tylenol) 500 MG tablet every 8 hours as needed. amLODIPine (Norvasc) 5 MG tablet Take 1 tablet by mouth every morning (before breakfast). atorvastatin (Lipitor) 10 MG tablet Take 1 tablet by mouth every morning (before breakfast). cholecalciferol (Vitamin D-3) 50 MCG (2000 UT) tablet Take by mouth daily. gabapentin (Neurontin) 300 MG capsule Take 600 mg by mouth every morning (before breakfast). ketorolac (Acular) 0.5 % ophthalmic solution INSTILL 1 DROP INTO AFFECTED EYE 4 TIMES DAILY. BRING TO SURGERY CENTER FOR USE AFTER CATARACT SURGERY lisinopril 20 MG tablet Take 1 tablet by mouth every morning (before breakfast). moxifloxacin (Vigamox) 0.5 % ophthalmic solution INSTILL 1 DROP INTO AFFECTED EYE FOUR TIMES A DAY.BRING TO SURGERY CENTER FOR USE AFTER CATARACT SURGERY. Multiple Vitamin (Multi Vitamin) tablet Take 1 tablet by mouth every morning (before breakfast). omeprazole (PriLOSEC) [address] capsule Take 20 mg by mouth daily. prednisoLONE acetate (Pred-Forte) 1 % ophthalmic suspension INSTILL 1 DROP INTO AFFECTED EYE FOUR TIMES A DAY. BRING TO SURGERY CENTER FOR USE AFTER CATARACT SURGERY. TAPER DIRECTED. predniSONE (Deltasone) 20 MG tablet Take 40 mg by mouth daily. traMADol (Ultram) 50 MG tablet TAKE 1 TABLET BY MOUTH AT BEDTIME for chronic pain No current facility-administered medications for this visit. Review of Systems OBJECTIVE Vitals: 12/30/24 1558 BP: 120/78 BP Location: Right arm Patient Position: Sitting BP Cuff Size: Large adult Pulse: 84 Weight: 176 lb (79.8 kg) Height: 5' 5 (1.651 m) Physical Exam Constitutional: General: She is not in acute distress. Appearance: She is well-developed. She is not diaphoretic. Eyes: Conjunctiva/sclera: Right eye: Right conjunctiva is not injected. Left eye: Left conjunctiva is not injected. Comments: Pupils not pinpoint Pulmonary: Effort: Pulmonary effort is normal. No respiratory distress. Abdominal: General: There is no distension. Skin: General: Skin is warm. Findings: No bruising, erythema or lesion. Neurological: Mental Status: She is alert. Psychiatric: Mood and Affect: Mood and affect normal. Speech: Speech normal. DETAILED MSK/NEURO: Lumbar Spine/Lower Extremity Inspection: previous surgical scar noted within the lumbar region. Palpation: Midline Paraspinal - Right Paraspinal - Left Lumbar w/o pain + pain + pain Range of motion: Flexion Extension Rotation Lateral Bend Lumbar Full - w/ pain Full - w/ pain Limited with pain Limited with pain IMAGING / OTHER STUDIES: 08/08/19 MRI Lumbar Spine Five lumbar type vertebra are assumed for purposes of numbering on this examination. Postsurgical changes from the L3-L5 levels with new bilateral pedicle adis and screw fixation. No significant fluid collection surrounding the hardware.. No abnormal intrathecal postcontrast enhancement or clumping of nerve roots. The pedicles of the spinal canal superior to this are shortened resulting in relative congenital central canal stenosis with superimposed degenerative change. The lumbar spine is in normal overall alignment without evidence of spondylolisthesis. The conus terminates at a normal L1 level. No abnormal signal is appreciated within the distal cord. T12-L1: No disc bulge or disc protrusion. No central spinal canal stenosis. No neural foraminal narrowing. L1-L2: Mild facet arthropathy and ligamentum flavum enfolding. 3 mm right neural foraminal disc protrusion, abutting the exiting nerve root. Moderate right neural foraminal narrowing. Mild left neural foraminal narrowing. No additional disc bulge or disc protrusion. No superimposed central spinal canal stenosis. L2-L3: 3 mm circumferential broad-based disc bulge. Bilateral facet arthropathy contributes to moderate bilateral neural foraminal narrowing, right greater than left. No superimposed central canal stenosis. L3-L4: Intervertebral disc space narrowing with facet arthropathy. Tiny disc marginal endplate osteophytosis. The central canal is patent. No evidence of neural foraminal narrowing. L4-L5: Bilateral facet arthropathy. 3 mm circumferential broad-based disc bulge, extending into the neural foramina where it abuts the exiting nerve roots and contributes to moderate bilateral neural foraminal narrowing. There appears to be extrusion of disc contents within the left neural foramen (image 11 series 2). No superimposed central canal narrowing. L5-S1: Advanced bilateral facet arthropathy. No significant disc bulge or protrusion. The central canal is patent. No significant bilateral neural foraminal narrowing. Impression: 1.Multilevel degenerative changes as detailed above. Postsurgical changes from L3 to L5 with bilateral pedicle adis and screw fixation. 2.At L1-L2 there is moderate right and mild left neural foraminal narrowing. Overall this level is similar to the prior exam. 3.At L2-L3 there is moderate bilateral neural foraminal narrowing, right greater than left. Overall this level is similar to the prior exam. 4.At L4-L5 there is a broad-based disc bulge appears to abut the exiting nerve roots and contributes to moderate bilateral neural foraminal narrowing. There is new extrusion of disc contents within the left lateral foramen. LABS: ASSESSMENT 1. Lumbar facet arthropathy 1) Chronic low back pain (>1 year durationyear duration) -- in the setting of previous lumbar (L3-4) fusion. Her pain is primarily axial, and is still most consistent with lower lumbar facet arthropathy vs pain / dysfunction in the lower lumbar core stabilizing muscles... Not currently adequately controlled PLAN - Continue Tylenol up to 3000 mg total per day PRN - Can continue gabapentin 600 mg daily for now - Encouraged working on core back strengthening / extension exercises on a routine basis as tolerated - Will also set her up for bilateral L4 and L5 MBB under fluoro, after thoroughly discussing the procedure itself (as well as its diagnostic nature as part of a 3-step process toward eventual RFA), as well as its associated risks (including but not limited to bleeding/epidural hematoma, infection/epidural abscess, spinal cord/nerve root injury, inadvertent intrathecal/epidural injection, weakness, and increased pain), potential benefits, and alternatives. No follow-ups on file. documented in this [facility]03-14-2025 [facility] [id number] [facility] [address] [facility] [address] Dept: [phone] Dept Chief Complaint Patient presents with Back Pain SUBJECTIVE HPI: Milena Mcghee is a 79 y.o. year old here today for follow-up of chronic low back pain. She was last seen by me back in 10/2023. Her back pain has been progressively worsening since then. LOCATION OF PAIN: Across low back (not just left-sided anymore) RADIATES: into bilateral posterolateral hips / buttocks CONSTANT/INTERMITTENT: Constant NUMBNESS/TINGLING? denies WEAKNESS? denies URINARY/FECAL INCONTINENCE? No SADDLE ANESTHESIA? no INTERFERING WITH SLEEP? No CURRENT PAIN MEDS: Tylenol 1000 mg PRN (usually once or twice a day), Gabapentin 600 mg daily ANY SIGNIFICANT SIDE EFFECTS FROM CURRENT PAIN MEDS? no ARE THEY PROVIDING ADEQUATE ANALGESIA? mild ARE THEY PROVIDING ADEQUATE FUNCTIONAL IMPROVEMENT? mild PAIN MEDS PREVIOUSLY TRIED/FAILED: Meloxicam (had helped but had to stop due to kidney function concerns), duloxetine (side effects), lidocaine patches OTHER CURRENT / PREVIOUS TREATMENT Physical therapy -- Last did shortly after her most recent back surgery in 2017 TENS -- No Chiropractor -- No Acupuncture -- No Prior Pain Clinic -- Dr Morrison in [place] Chronic opiates -- No Previous Pain Procedures -- some previous lumbar injections prior to her back surgeries 09/10/20 -- LEFT L4 and L5 TFESI -- >50% improvement in leg symptoms, only 2 days of relief of axial back pain 02/25/21 -- LEFT SI joint -- 30% improvement in pain, >50% improvement in function / ambulation Patient Active Problem List Diagnosis Date Noted Sacroiliitis (HCC) 02/25/2021 Epigastric pain 01/16/2021 BRBPR (bright red blood per rectum) 01/16/2021 Lumbar radiculopathy 09/10/2020 Closed nondisplaced fracture of base of fourth metacarpal bone of left hand 02/21/2019 Displaced fracture of base of fifth metacarpal bone of left hand 02/21/2019 Nausea & vomiting 02/14/2018 Nausea and vomiting 02/14/2018 Allergies Allergen Reactions Codeine Nausea And Vomiting and Unknown Other reaction(s): GI Upset, spinning adn vomiting Nitrofurantoin Hives and Other Prednisone Other reaction(s): nevous unable to sleep, Other, Unknown Seasonal Rash and Nausea And Vomiting Sulfa Antibiotics Rash, Swelling and Other Other reaction(s): swelling of the throat Other reaction(s): swelling of the throat Oxycodone Nausea And Vomiting Promethazine Other Other reaction(s): makes me act drunk Sulfasalazine Rash Family History Adopted: Yes Past Medical History: Diagnosis Date Age-related nuclear cataract of right eye 11/17/2024 Age-related nuclear cataract, left 12/22/2024 Cholecystitis, chronic Chronic back pain Chronic kidney disease STAGE 3 Closed nondisplaced fracture of base of fourth metacarpal bone of left hand 02/21/2019 Displaced fracture of base of fifth metacarpal bone of left hand 02/21/2019 Displaced fracture of base of fourth metacarpal bone of left hand 02/21/2019 GERD (gastroesophageal reflux disease) Hyperlipidemia Hypertension Osteoarthritis PONV (postoperative nausea and vomiting) Social History Socioeconomic History Marital status: Spouse name: Not on file Number of children: Not on file Years of education: Not on file Highest education level: Not on file Occupational History Not on file Tobacco Use Smoking status: Never Passive exposure: Never Smokeless tobacco: Never Vaping Use Vaping status: Never Used Substance and Sexual Activity Alcohol use: No Drug use: No Sexual activity: Not on file Other Topics Concern Not on file Social History Narrative Not on file Social Drivers of Health Financial Resource Strain: Not on file Food Insecurity: Not on file Transportation Needs: No Transportation Needs (11/14/2024) PRAPARE - Transportation Lack of Transportation (Medical): No Lack of Transportation (Non-Medical): No Physical Activity: Not on file Stress: Not on file Social Connections: Not on file Intimate Partner Violence: Not on file Housing Stability: Not on file Past Surgical History: Procedure Laterality Date BACK SURGERY 2013 and 2017 L3-4 fusion CHOLECYSTECTOMY COLONOSCOPY Current Outpatient Medications Medication Sig Dispense Refill acetaminophen (Tylenol) 500 MG tablet every 8 hours as needed. amLODIPine (Norvasc) 5 MG tablet Take 1 tablet by mouth every morning (before breakfast). atorvastatin (Lipitor) 10 MG tablet Take 1 tablet by mouth every morning (before breakfast). cholecalciferol (Vitamin D-3) 50 MCG (2000 UT) tablet Take by mouth daily. gabapentin (Neurontin) 300 MG capsule Take 600 mg by mouth every morning (before breakfast). ketorolac (Acular) 0.5 % ophthalmic solution INSTILL 1 DROP INTO AFFECTED EYE 4 TIMES DAILY. BRING TO SURGERY CENTER FOR USE AFTER CATARACT SURGERY li (more content not included)...[facility]03-10-2025 Note Discharged to home . Accompanied by friend . AVS and education reviewed with patient and friend, both verbalized understanding. All questions answered and patient denies dizziness or nausea. Patient tolerating fluids and vital signs are stable. Patient valuables sent.[facility]03-10-2025 Nurse Note* Perioperative Nursing Note - Franchesca Garner RN - 12/26/2024 9:48 AM EDT Discharged to home . Accompanied by friend . AVS and education reviewed with patient and friend, both verbalized understanding. All questions answered and patient denies dizziness or nausea. Patient tolerating fluids and vital signs are stable. Patient valuables sent. [id number] Miscellaneous Notes* Perioperative Nursing Note - Franchesca Garner RN - 12/26/2024 9:48 AM EDT Discharged to home . Accompanied by friend . AVS and education reviewed with patient and friend, both verbalized understanding. All questions answered and patient denies dizziness or nausea. Patient tolerating fluids and vital signs are stable. Patient valuables sent. * Op Note - Prema Garcia MD - 12/26/2024 8:50 AM EDT Operative Report NAME: Milena Mcghee : 1945 AGE: 79 y.o. SURGEON: Prema Garcia M.D. OPERATIVE EYE: left PREOPERATIVE DIAGNOSIS: 1. Nuclear sclerotic cataract. POSTOPERATIVE DIAGNOSIS: 1. Nuclear sclerotic cataract. OPERATION: Cataract extraction by phacoemulsification with placement of posterior chamber intraocular lens implant. SCHOOL COOK: See operating room record ASSOCIATE EMBALMER/FUNERAL DIRECTOR: See operating room record ANESTHESIA: Local with topical tetracaine drops and monitored anesthesia care. COMPLICATIONS: None. INDICATIONS: as delineated PROCEDURE: The patient was brought to the operating room, placed in supine position. Attention was given to the operative eye. Under monitored anesthesia care, multiple drops of topical tetracaine were administered. The eye was then prepped and draped in the usual sterile ophthalmic fashion. A wirelid speculum was placed in the operative microscope was used. A 1.0 mm slide port blade was then used to create paracentesis at the 2 o'clock position. Through this incision, 2% lidocaine preservative-free was instilled into the anterior chamber. Following this, Viscoelastic was then used to inflate the anterior chamber and coat the endothelial surface. A 2.4 mm microkeratome was then used to create a triplanar clear corneal incision at the 11 o'clock position. A pre- bent cystotome was then used to initiate an anterior capsulorrhexis. A Utrata forceps was then used to complete the capsulorrhexis and a curvilinear fashion. Balanced salt solution on a flat-tipped cannula was then used to perform hydrodissection and hydrodelineation of the lens. It was confirmed that the lens was freely mobile within the capsular bag phacoemulsification was then performed in a divide and conquer manner to remove the lens nucleus. Phacoemulsification time was CDE 8.13. Automated irrigation and aspiration was then performed to remove all cortical remnants. Capsular bag was inflated using Provisc. The lens injector was then used to place an Akreos MI60L +18.50 diopter intraocular lens directly into the capsular bag. It was rotated in the proper position using the Duran wand. The residual Viscoelasticwas then removed using automated irrigation and aspiration. The wounds were hydrated using balancedsalt solution. There were check for leaks and none were found. Topical antibiotic drops and antibiotic/steroid ointment were placed. The eye was patched and shielded. The patient was transferred to the postanesthesia care unit in good condition. Prema Garcia MD 12/26/24 9:32 AM documented in this [facility]03-10-2025 Hospital Discharge instructions* Discharge Instructions* Prema Garcia MD - 12/26/2024 9:32 AM EDT Post-Operative Cataract Instructions You may take the patch and shield off and start taking eye drops FOUR hours after leaving the hospital. Your vision will be blurry. Starting drops will accelerate your healing process. After using the eye drops, replace the metal or plastic eye shield over the operative eye using a single piece of take Do NOT reapply the cotton patch. PREDNISOLONE ACETATE 1%: Apply 1 drop to the surgical eye EVERY HOUR while awake. MOXIFLOXACIN: Apply 1 drop to the surgical eye EVERY 2 HOURS while awake. KETOROLAC: Apply 1 drop to the surgical eye EVERY 2 HOURS while awake. Wait 5 minutes in between eye drops. The order does not matter. Continue taking the drops in thismanner until your appointment tomorrow. What to Expect at Home Your Recovery: After surgery, your eye may be sore, it may feel scratchy, sticky, or uncomfortable. It may also water more than usual. Most people see better 1 to 3 days after surgery. But it could take 3 to 10 weeks to get the full benefits of surgery and to see as clearly as possible. Your doctor may send you home with a bandage, patch, or clear shield on your eye. This will keep you from rubbing your eye. Your doctor will also give you eyedrops to help your eye heal. Use them exactly as directed. You can read or watch TV right away, but things may look blurry. Most people are able to return to work or their normal routine in 1 to 3 days. After your eye heals, you may still need to wear glasses, especially for reading. This care sheet gives you a general idea about how long it will take for you to recover. But each person recovers at a different pace. Follow the steps below to get better as quickly as possible. How can you care for yourself at home? Activity Rest when you feel tired. Getting enough sleep will help you recover. You may have trouble judging distances for a few days. Move slowly, and be careful going up and down stairs and pouring hot liquids. Ask for help if you need it. Ask your doctor when it is okay to drive. Wear your eye bandage, patch, or shield for as long as your doctor recommends. You may only need towear it when you sleep. You can shower or wash your hair the day after surgery. Keep water, soap, shampoo, hair spray, and shaving lotion out of your eye, especially for the first week. Do not rub or put pressure on your eye for at least 1 week. Do not wear eye makeup for 1 to 2 weeks. You may also want to avoid face cream or lotion. Do not get your hair colored or permed for 10 days after surgery. Do not bend over or do any strenuous activities, such as biking, jogging, weight lifting, or aerobic exercise, for 2 weeks or until your doctor says it is okay. Avoid swimming, hot tubs, gardening, and dusting for 1 to 2 weeks. Wear sunglasses on bright days for at least 1 year after surgery. Medicines You can resume all your regular medicines. She will also give you instructions about taking any newmedicines. Follow your doctor's instructions for when to use your eyedrops. Always wash your hands before you put your drops in. To put in eyedrops: -Tilt your head back, and pull your lower eyelid down with one finger. -Drop the medicine inside the lower lid. -Close your eye for 30 to 60 seconds to let the drops absorb. -Do not touch the dropper tip to your eyelashes or any other surface. Follow your doctor's instructions for taking pain medicines. Follow-up care is a gunter part of your treatment and safety. Be sure to make and go to all appointments, and call your doctor if you are having problems. It's also a good idea to know your test results and keep a list of the medicines you take. When should you call for help? Call 911 anytime you think you may need emergency care. For example, call if: You passed out (lost consciousness). You have severe trouble breathing. You have sudden chest pain and shortness of breath, or you cough up blood. Call your doctor now or seek immediate medical care if: You have eye pain. You have pus draining from your eye. Your vision gets worse. Your eye is still red and bloodshot after 3 or 4 days. You notice new floaters, flashes of light, or changes in your field of vision. Watch closely for changes in your health, and be sure to contact your doctor if you have any problems. documented in this [facility]03-10-2025 NotePatient: Milena Portillo Antal Procedure Summary Date: 12/26/24 Room / Location: [facility] OR 1 / [facility] OR Anesthesia Start: 849 Anesthesia Stop: 920 Procedure: PHACOEMULSIFICATION, CATARACT, WITH IOL INSERTION LEFT EYE (Left: Eye) Diagnosis: Nuclear sclerotic cataract of left eye (Nuclear sclerotic cataract of left eye) Surgeons: Prema Garcia MD Responsible Provider: Vivienne Anesthesiologist - Juan/MD Helen Anesthesia Type: MAC ASA Status: 3 Anesthesia Type: MAC Vitals Value Taken Time BP 107/87 12/26/24920 Temp 37 ?C (98.6 ?F) 12/26/24920 Pulse 74 12/26/24920 Resp 12 12/26/24920 SpO2 96 % 12/26/24920 Anesthesia Post Evaluation Patient location during evaluation: PACU Patient participation: complete - patient participated Level of consciousness: awake and alert Pain management: satisfactory to patient Multimodal analgesia pain management approach Airway patency: patent Two or more strategies used to mitigate risk of obstructive sleep apnea Cardiovascular status: acceptable and hemodynamically stable Respiratory status: acceptable Hydration status: acceptable No notable events documented. MIPS #430 PONV Patient did not receive an inhalational anesthetic ([id number]) MIPS # 424 Perioperative Temperature Management Anesthesia time was less than 60 minutes (4256F) MIPS #477 Multimodal Pain Management Not emergent case Patient was administered multimodal pain management (two or more drugs and/or interventions excluding systemic opioids) in the periopeartive period occurring at some time between 6 hours prior to anesthesia start time until discharged from PACU ([id number]) MIPS #404 Anesthesiology Smoking Abstinence The patient is not a current smoker (e.g. cigarette, cigar, pipe, e-cigarette/vaping/marijuana) If no stop here (XX404) I completed my handoff to the receiving clinician during which we: 1. Identified the patient 2. Identified the responsible provider 3. Reviewed the pertinent medical history 4. Discussed the surgical course 5. Reviewed intra-op anesthesia management and issues during anesthesia 6. Set expectations for post-procedure period 7. Allowed opportunity for questions and acknowledgement of understanding.[facility] [id number] NotePatient: Milena Mcghee Procedure Summary Date: 12/26/24 Room / Location: [facility] OR 1 / [facility] OR Anesthesia Start: 849 Anesthesia Stop: 0921 Procedure: PHACOEMULSIFICATION, CATARACT, WITH IOL INSERTION LEFT EYE (Left: Eye) Diagnosis: Nuclear sclerotic cataract of left eye (Nuclear sclerotic cataract of left eye) Surgeons: Prema Garcia MD Responsible Provider: No Anesthesiologist - Juan/MD Helen Anesthesia Type: MAC ASA Status: 3 Anesthesia Type: MAC Vitals Value Taken Time BP 107/87 12/26/24920 Temp 37 ?C (98.6 ?F) 12/26/24920 Pulse 74 12/26/24920 Resp 12 12/26/24920 SpO2 96 % 12/26/24920 Anesthesia Post Evaluation Patient location during evaluation: PACU Patient participation: complete - patient participated Level of consciousness: awake and alert Pain management: satisfactory to patient Airway patency: patent Dental Injury: no Cardiovascular status: acceptable, blood pressure returned to baseline and hemodynamically stable Respiratory status: acceptable and spontaneous ventilation Hydration status: euvolemic Nausea/Vomiting: controlled No notable events documented. Patient can be discharged once all PACU criteria has been met.[facility]03-10-2025 Procedure note* Op Note - Prema Garcia MD - 12/26/2024 8:50 AM EDT Operative Report NAME: Milena Mcghee : 1945 AGE: 79 y.o. SURGEON: Prema Garcia M.D. OPERATIVE EYE: left PREOPERATIVE DIAGNOSIS: 1. Nuclear sclerotic cataract. POSTOPERATIVE DIAGNOSIS: 1. Nuclear sclerotic cataract. OPERATION: Cataract extraction by phacoemulsification with placement of posterior chamber intraocular lens implant. SCHOOL COOK: See operating room record ASSOCIATE EMBALMER/FUNERAL DIRECTOR: See operating room record ANESTHESIA: Local with topical tetracaine drops and monitored anesthesia care. COMPLICATIONS: None. INDICATIONS: as delineated PROCEDURE: The patient was brought to the operating room, placed in supine position. Attention was given to the operative eye. Under monitored anesthesia care, multiple drops of topical tetracaine were administered. The eye was then prepped and draped in the usual sterile ophthalmic fashion. A wirelid speculum was placed in the operative microscope was used. A 1.0 mm slide port blade was then used to create paracentesis at the 2 o'clock position. Through this incision, 2% lidocaine preservative-free was instilled into the anterior chamber. Following this, Viscoelastic was then used to inflate the anterior chamber and coat the endothelial surface. A 2.4 mm microkeratome was then used to create a triplanar clear corneal incision at the 11 o'clock position. A pre- bent cystotome was then used to initiate an anterior capsulorrhexis. A Utrata forceps was then used to complete the capsulorrhexis and a curvilinear fashion. Balanced salt solution on a flat-tipped cannula was then used to perform hydrodissection and hydrodelineation of the lens. It was confirmed that the lens was freely mobile within the capsular bag phacoemulsification was then performed in a divide and conquer manner to remove the lens nucleus. Phacoemulsification time was CDE 8.13. Automated irrigation and aspiration was then performed to remove all cortical remnants. Capsular bag was inflated using Provisc. The lens injector was then used to place an Akreos MI60L +18.50 diopter intraocular lens directly into the capsular bag. It was rotated in the proper position using the Duran wand. The residual Viscoelasticwas then removed using automated irrigation and aspiration. The wounds were hydrated using balancedsalt solution. There were check for leaks and none were found. Topical antibiotic drops and antibiotic/steroid ointment were placed. The eye was patched and shielded. The patient was transferred to the postanesthesia care unit in good condition. Prema Garcia MD 12/26/24 9:32 AM [id number] History and physical note* Prema Garcia MD - 12/26/2024 7:54 AM EDT Interval History and Physical I have interviewed and examined the patient and reviewed the recent History and Physical. There have been no changes to the recent H&P documentation. The H&P resides on a progress note on this patient's chart. The patient understands the planned operation and its associated risks and benefits and agrees to proceed. The surgical consent form has been signed. BP 136/69 Pulse 72 Temp 37.1 C (98.8 F) (Temporal) Resp 18 Ht 5' 5 (1.651 m) Wt 165 lb (74.8 kg) SpO2 97% BMI 27.46 kg/m [id number] History and physical note* Prema Garcia MD - 12/26/2024 7:54 AM EDT Interval History and Physical I have interviewed and examined the patient and reviewed the recent History and Physical. There have been no changes to the recent H&P documentation. The H&P resides on a progress note on this patient's chart. The patient understands the planned operation and its associated risks and benefits and agrees to proceed. The surgical consent form has been signed. BP 136/69 Pulse 72 Temp 37.1 C (98.8 F) (Temporal) Resp 18 Ht 5' 5 (1.651 m) Wt 165 lb (74.8 kg) SpO2 97% BMI 27.46 kg/m documented in this [facility]03-10-2025 NoteInterval History and Physical I have interviewed and examined the patient and reviewed the recent History and Physical. There have been no changes to the recent H&P documentation. The H&P resides on a progress note on this patient's chart. The patient understands the planned operation and its associated risks and benefits and agrees to proceed. The surgical consent form has been signed. BP 136/69 Pulse 72 Temp 37.1 ?C (98.8 ?F) (Temporal) Resp 18 Ht 5' 5 (1.651 m) Wt 165 lb (74.8 kg) SpO2 97% BMI 27.46 kg/m? [facility]03-06-2025 NotePatient: Milena L Antal Procedure Information Date/Time: 12/26/24 0845 Procedure: PHACOEMULSIFICATION, CATARACT, WITH IOL INSERTION LEFT EYE (Left: Eye) - 8:45am surgery, 45 mins Location: [facility] OR 1 / [facility] OR Surgeons: Prema Garcia MD Relevant Problems No relevant active problems Past Medical History: Past Medical History: 11/17/2024: Age-related nuclear cataract of right eye No date: Cholecystitis, chronic No date: Chronic back pain No date: Chronic kidney disease Comment: STAGE 3 02/21/2019: Closed nondisplaced fracture of base of fourth metacarpal bone of left hand 02/21/2019: Displaced fracture of base of fifth metacarpal bone of left hand 02/21/2019: Displaced fracture of base of fourth metacarpal bone of left hand No date: GERD (gastroesophageal reflux disease) No date: Hyperlipidemia No date: Hypertension No date: Osteoarthritis No date: PONV (postoperative nausea and vomiting) Past Surgical History: Past Surgical History: 2013 and 2017: BACK SURGERY Comment: L3-4 fusion No date: CHOLECYSTECTOMY No date: COLONOSCOPY Social History: TOBACCO: reports that she has never smoked. She has never been exposed to tobacco smoke. She has never used smokeless tobacco. ETOH: reports no history of alcohol use. Social History Substance and Sexual Activity Drug Use No Family History: Family History Adopted: Yes Screening: Postmenopausal Clinical information reviewed: Physical Exam Airway Mallampati: II TM distance: >3 FB Neck ROM: full Mouth Open: normalendotracheal tube not in place Cardiovascular - normal exam Comments: Stress Test Waveforms - Scan on 08/11/2023 9:17 AM Interpretation Summary ? Stress Combined Conclusion: Normal treadmill myocardial perfusion study at 101%% PHR. ? Perfusion Comments: There is no evidence of inducible ischemia. ? Stress Function: Left ventricular function post-stress is normal. Post-stress ejection fraction is 75%. No regional wall motion abnormalities. ? Stress ECG: Conclusion: The stress test is normal. ? Stress Test: A Arpit protocol stress test was performed. Overall, the patient's exercise capacity was below average for their age. The patient reached stage 2 of the protocol after exercising for 4 min and 40 sec. The patient experienced no angina during the test. Hemodynamics are adequate for diagnosis. Blood pressure demonstrated a normal response and heart rate demonstrated a normal response to stress. The patient's heart rate recovery was normal. The patient reported dyspnea, fatigue, muscle fatigue and no chest pain during the stress test. Dental (+) Missing Pulmonary - normal exam Abdominal Anesthesia Plan patient is NPO appropriate Any family history or previous problems with anesthesia no ASA 3 MAC Any family history or previous problems with anesthesia no The patient is not a current smoker. Anesthetic plan and risks discussed with patient. Use of blood products discussed with who consented to blood products. ELVIS Screening Labs: Lab Results Component Value Date WBC 6.4 08/29/2022 HGB 13.4 08/29/2022 HCT 39.6 08/29/2022 MCV 96.1 08/29/2022 PLT 195 08/29/2022 Lab Results Component Value Date NA 137 08/29/2022 K 3.9 08/29/2022 CL 107 08/29/2022 CO2 26 08/29/2022 BUN 16 08/29/2022 CREATININE 1.23 (H) 08/29/2022 GLUCOSE 100 08/29/2022 CALCIUM 9.0 08/29/2022 ALKPHOS 158 (H) 05/20/2023 EGFR 45.6 (L) 08/29/2022 No echocardiogram results found for the past 14 days 07/31/23 ECG 12-LEAD 07/31/2023 9:03 AM (Final) Narrative Sinus Rhythm -Nonspecific T-abnormality. Low voltage -possible pulmonary disease. ABNORMAL Signed by: Ba Hull on 07/31/2023 9:03 AM Equipment Requests: [facility] Evaluation note* Diagnosis Onset Date Resolution Status Admit Date Cystitis acute December 08, 2024 7:56pm Lower abdominal pain acute Febr [id number] 7:56pm Lower back pain acute December 08, 2024 7:56pm Cystitis acute January 04 5:33pm Spinal stenosis, lumbar abby on without neurogenic claudication acute January 04, 2025 5:33pm Cystitis acute January 17 4:12pm Cystitis acute February 28, 2025 4:11pm Chronic lower back pain chronic M ay 2024 4:11pm [facility] Work Phone: 1(561) 364-331002-03-2025 Procedure anesthesia Narrative* Procedure Summary Procedure Name Responsible Anesthesiologist Anesthesia Start Time Anesthesia Stop Time PHACOEMULSIFICATION , CATARACT, WITH IOL INSERTION RIGHT EYE (Right: Eye) No Anesthesiologist - Juan/MD Helen 11/21/24 0753 11/21/24 0830 Events Date Time Event Comment 11/21/2024 0745 0753 In Room 0753 An Start 0753 An Start Data 0754 Anesthesia Ready 0801 Proc Start 0825 Proc Fin 0828 Out of Room 0828 an stop data 0830 An Stop Meds Name Total midazolam (Versed) injection 2 mg/2 mL 2 mg * Agents Name O2 N2O Air * Blood No blood administrations on file. Lines, Drains, and Airways Type Details Placement Removal Wound/Incision 11/21/24; N; Surgica l; Eye; Right; eye pad, eye shield, tape 11/21/24 0000 by Catie Landers RN Peripheral IV Placement Date: 11/21/24; Placement Time: 743; Catheter Size: 22 G; Orientation: Anterior, Left, Proximal; Location: Forearm; Inserted by: sc; Insertion Attempts: 1; Removal Date: 11/21/24; Removal Time: 90911/21/24 0744 by Kary Levi RN 11/21/24 0910 by Demetrius Rose RN documented in this encounter [id number] Note* Addendum Note - ANGIE Montgomery CRNA - 11/21/2024 9:12 AM EST Addendum created 11/21/24911 by ANGIE Montgomery CRNA Flowsheet accepted [id number] Miscellaneous Notes* Addendum Note - ANGIE Montgomery CRNA - 11/21/2024 9:12 AM EST Addendum created 11/21/24 09 by ANGIE Montgomery CRNA Flowsheet accepted * Anesthesia Discharge Note - ANGIE Montgomery CRNA - 11/21/2024 8:31 AM EST Patient: Milena Mcghee Procedure Summary Date: 11/21/24 Room / Location: [facility] OR / [facility] OR Anesthesia Start: 752 Anesthesia Stop: 829 Procedure: PHACOEMULSIFICATION, CATARACT, WITH IOL INSERTION RIGHT EYE (Right: Eye) Diagnosis: Nuclear sclerotic cataract of right eye (Nuclear sclerotic cataract of right eye) Surgeons: Prema Garcia MD Responsible Provider: No Anesthesiologist - Sb/MD Helen Anesthesia Type: MAC ASA Status: 3 Anesthesia Type: MAC Vitals Value Taken Time BP 132/79 11/21/24 0831 Temp 97 11/21/24 0831 Pulse 75 11/21/24 0831 Resp 12 11/21/24 0831 SpO2 97 11/21/24 0831 Anesthesia Post Evaluation Patient location during evaluation: PACU Patient participation: complete - patient participated Level of consciousness: awake and alert Pain management: satisfactory to patient Airway patency: patent Dental Injury: no Cardiovascular status: acceptable, blood pressure returned to baseline and hemodynamically stable Respiratory status: acceptable and spontaneous ventilation Hydration status: euvolemic Nausea/Vomiting: controlled No notable events documented. Patient can be discharged once all PACU criteria has been met. documented in this [facility]02[facility]03[facility]2025 Hospital Discharge instructions* Discharge Instructions* Prema Garcia MD - 11/21/2024 8:35 AM EST Post-Operative Cataract Instructions You may take the patch and shield off and start taking eye drops FOUR hours after leaving the hospital. Your vision will be blurry. Starting drops will accelerate your healing process. After using the eye drops, replace the metal or plastic eye shield over the operative eye using a single piece of take Do NOT reapply the cotton patch. PREDNISOLONE ACETATE 1%: Apply 1 drop to the surgical eye EVERY HOUR while awake. MOXIFLOXACIN: Apply 1 drop to the surgical eye EVERY 2 HOURS while awake. KETOROLAC: Apply 1 drop to the surgical eye EVERY 2 HOURS while awake. Wait 5 minutes in between eye drops. The order does not matter. Continue taking the drops in thismanner until your appointment tomorrow. What to Expect at Home Your Recovery: After surgery, your eye may be sore, it may feel scratchy, sticky, or uncomfortable. It may also water more than usual. Most people see better 1 to 3 days after surgery. But it could take 3 to 10 weeks to get the full benefits of surgery and to see as clearly as possible. Your doctor may send you home with a bandage, patch, or clear shield on your eye. This will keep you from rubbing your eye. Your doctor will also give you eyedrops to help your eye heal. Use them exactly as directed. You can read or watch TV right away, but things may look blurry. Most people are able to return to work or their normal routine in 1 to 3 days. After your eye heals, you may still need to wear glasses, especially for reading. This care sheet gives you a general idea about how long it will take for you to recover. But each person recovers at a different pace. Follow the steps below to get better as quickly as possible. How can you care for yourself at home? Activity Rest when you feel tired. Getting enough sleep will help you recover. You may have trouble judging distances for a few days. Move slowly, and be careful going up and down stairs and pouring hot liquids. Ask for help if you need it. Ask your doctor when it is okay to drive. Wear your eye bandage, patch, or shield for as long as your doctor recommends. You may only need towear it when you sleep. You can shower or wash your hair the day after surgery. Keep water, soap, shampoo, hair spray, and shaving lotion out of your eye, especially for the first week. Do not rub or put pressure on your eye for at least 1 week. Do not wear eye makeup for 1 to 2 weeks. You may also want to avoid face cream or lotion. Do not get your hair colored or permed for 10 days after surgery. Do not bend over or do any strenuous activities, such as biking, jogging, weight lifting, or aerobic exercise, for 2 weeks or until your doctor says it is okay. Avoid swimming, hot tubs, gardening, and dusting for 1 to 2 weeks. Wear sunglasses on bright days for at least 1 year after surgery. Medicines You can resume all your regular medicines. She will also give you instructions about taking any newmedicines. Follow your doctor's instructions for when to use your eyedrops. Always wash your hands before you put your drops in. To put in eyedrops: -Tilt your head back, and pull your lower eyelid down with one finger. -Drop the medicine inside the lower lid. -Close your eye for 30 to 60 seconds to let the drops absorb. -Do not touch the dropper tip to your eyelashes or any other surface. Follow your doctor's instructions for taking pain medicines. Follow-up care is a gunter part of your treatment and safety. Be sure to make and go to all appointments, and call your doctor if you are having problems. It's also a good idea to know your test results and keep a list of the medicines you take. When should you call for help? Call 911 anytime you think you may need emergency care. For example, call if: You passed out (lost consciousness). You have severe trouble breathing. You have sudden chest pain and shortness of breath, or you cough up blood. Call your doctor now or seek immediate medical care if: You have eye pain. You have pus draining from your eye. Your vision gets worse. Your eye is still red and bloodshot after 3 or 4 days. You notice new floaters, flashes of light, or changes in your field of vision. Watch closely for changes in your health, and be sure to contact your doctor if you have any problems. documented in this [facility]02-03-2025 Note* Anesthesia Discharge Note - Conrado Mckeon APRN - LIGHT RAIL TRANSIT OPERATOR - 11/21/2024 8:31 AM EST Patient: Milena Mcghee Procedure Summary Date: 11/21/24 Room / Location: [facility] OR / [facility] OR Anesthesia Start: 752 Anesthesia Stop: 829 Procedure: PHACOEMULSIFICATION, CATARACT, WITH IOL INSERTION RIGHT EYE (Right: Eye) Diagnosis: Nuclear sclerotic cataract of right eye (Nuclear sclerotic cataract of right eye) Surgeons: Prema Garcia MD Responsible Provider: No Anesthesiologist - Juan/MD Helen Anesthesia Type: MAC ASA Status: 3 Anesthesia Type: MAC Vitals Value Taken Time BP 132/79 11/21/24 0831 Temp 97 11/21/24 0831 Pulse 75 11/21/24 0831 Resp 12 11/21/24 0831 SpO2 97 11/21/24 0831 Anesthesia Post Evaluation Patient location during evaluation: PACU Patient participation: complete - patient participated Level of consciousness: awake and alert Pain management: satisfactory to patient Airway patency: patent Dental Injury: no Cardiovascular status: acceptable, blood pressure returned to baseline and hemodynamically stable Respiratory status: acceptable and spontaneous ventilation Hydration status: euvolemic Nausea/Vomiting: controlled No notable events documented. Patient can be discharged once all PACU criteria has been met. [id number] NotePatient: Milena Mcghee Procedure Summary Date: 11/21/24 Room / Location: [facility] / [facility] OR Anesthesia Start: 752 Anesthesia Stop: 829 Procedure: PHACOEMULSIFICATION, CATARACT, WITH IOL INSERTION RIGHT EYE (Right: Eye) Diagnosis: Nuclear sclerotic cataract of right eye (Nuclear sclerotic cataract of right eye) Surgeons: Prema Garcia MD Responsible Provider: No Anesthesiologist - [facility]/MD Helen Anesthesia Type: MAC ASA Status: 3 Anesthesia Type: MAC Vitals Value Taken Time BP 132/79 11/21/24 0831 Temp 97 11/21/24 0831 Pulse 75 11/21/24 0831 Resp 12 11/21/24 0831 SpO2 97 11/21/24 0831 Anesthesia Post Evaluation Patient location during evaluation: PACU Patient participation: complete - patient participated Level of consciousness: awake and alert Pain management: satisfactory to patient Airway patency: patent Dental Injury: no Cardiovascular status: acceptable, blood pressure returned to baseline and hemodynamically stable Respiratory status: acceptable and spontaneous ventilation Hydration status: euvolemic Nausea/Vomiting: controlled No notable events documented. Patient can be discharged once all PACU criteria has been met.[facility]02-03-2025 Anesthesiology Postoperative evaluation and management note * Anesthesia Postprocedure Evaluation - ANGIE Montgomery CRNA - 11/21/2024 8:31 AM EST Patient: Milena Mcghee Procedure Summary Date: 11/21/24 Room / Location: [facility] 1 / [facility] OR Anesthesia Start: 752 Anesthesia Stop: 829 Procedure: PHACOEMULSIFICATION, CATARACT, WITH IOL INSERTION RIGHT EYE (Right: Eye) Diagnosis: Nuclear sclerotic cataract of right eye (Nuclear sclerotic cataract of right eye) Surgeons: Prema Garcia MD Responsible Provider: No Anesthesiologist - Juan/MD Helen Anesthesia Type: MAC ASA Status: 3 Anesthesia Type: MAC Vitals Value Taken Time BP 132/79 11/21/24 0831 Temp 97 11/21/24 0831 Pulse 75 11/21/24 0831 Resp 12 11/21/24 0831 SpO2 97 11/21/24 0831 Anesthesia Post Evaluation Patient location during evaluation: PACU Patient participation: complete - patient participated Level of consciousness: awake and alert Pain management: satisfactory to patient Multimodal analgesia pain management approach Airway patency: patent Two or more strategies used to mitigate risk of obstructive sleep apnea Cardiovascular status: acceptable and hemodynamically stable Respiratory status: acceptable Hydration status: acceptable No notable events documented. MIPS #430 PONV Patient did not receive an inhalational anesthetic (XX430) MIPS # 424 Perioperative Temperature Management Anesthesia time was less than 60 minutes (4256F) MIPS #477 Multimodal Pain Management Not emergent case Patient was not administered multimodal pain management (G2149) Patient reports no pain in PACU (G2149) MIPS #404 Anesthesiology Smoking Abstinence The patient is not a current smoker (e.g. cigarette, cigar, pipe, e- cigarette/vaping/marijuana) If no stop here (XX404) I completed my handoff to the receiving clinician during which we: 1. Identified the patient 2. Identified the responsible provider 3. Reviewed the pertinent medical history 4. Discussed the surgical course 5. Reviewed intra-op anesthesia management and issues during anesthesia 6. Set expectations for post-procedure period 7. Allowed opportunity for questions and acknowledgement of understanding. [facility] [place] Phone: [phone]) 943-695602-03-2025 NotePatient: Milena Mcghee Procedure Summary Date: 11/21/24 Room / Location: [facility] 1 / [facility] OR Anesthesia Start: 752 Anesthesia Stop: 829 Procedure: PHACOEMULSIFICATION, CATARACT, WITH IOL INSERTION RIGHT EYE (Right: Eye) Diagnosis: Nuclear sclerotic cataract of right eye (Nuclear sclerotic cataract of right eye) Surgeons: Prema Garcia MD Responsible Provider: No Anesthesiologist - [facility]/MD Helen Anesthesia Type: MAC ASA Status: 3 Anesthesia Type: MAC Vitals Value Taken Time BP 132/79 11/21/24 0831 Temp 97 11/21/24 0831 Pulse 75 11/21/24 0831 Resp 12 11/21/24 0831 SpO2 97 11/21/24 0831 Anesthesia Post Evaluation Patient location during evaluation: PACU Patient participation: complete - patient participated Level of consciousness: awake and alert Pain management: satisfactory to patient Multimodal analgesia pain management approach Airway patency: patent Two or more strategies used to mitigate risk of obstructive sleep apnea Cardiovascular status: acceptable and hemodynamically stable Respiratory status: acceptable Hydration status: acceptable No notable events documented. MIPS #430 PONV Patient did not receive an inhalational anesthetic (XX430) MIPS # 424 Perioperative Temperature Management Anesthesia time was less than 60 minutes (4256F) MIPS #477 Multimodal Pain Management Not emergent case Patient was not administered multimodal pain management (G2149) Patient reports no pain in PACU (G2149) MIPS #404 Anesthesiology Smoking Abstinence The patient is not a current smoker (e.g. cigarette, cigar, pipe, e-cigarette/vaping/marijuana) If no stop here (XX404) I completed my handoff to the receiving clinician during which we: 1. Identified the patient 2. Identified the responsible provider 3. Reviewed the pertinent medical history 4. Discussed the surgical course 5. Reviewed intra-op anesthesia management and issues during anesthesia 6. Set expectations for post-procedure period 7. Allowed opportunity for questions and acknowledgement of understanding.[facility]02-03-2025 Surgical operation note* Anesthesia Postprocedure Evaluation - Conrado Mckeon APRN - LIGHT RAIL TRANSIT OPERATOR - 11/21/2024 8:31 AM EST Patient: Milena Mcghee Procedure Summary Date: 11/21/24 Room / Location: [facility] 1 / [facility] OR Anesthesia Start: 752 Anesthesia Stop: 829 Procedure: PHACOEMULSIFICATION, CATARACT, WITH IOL INSERTION RIGHT EYE (Right: Eye) Diagnosis: Nuclear sclerotic cataract of right eye (Nuclear sclerotic cataract of right eye) Surgeons: Prema Garcia MD Responsible Provider: No Anesthesiologist - Juan/MD Helen Anesthesia Type: MAC ASA Status: 3 Anesthesia Type: MAC Vitals Value Taken Time BP 132/79 11/21/24 0831 Temp 97 11/21/24 0831 Pulse 75 11/21/24 0831 Resp 12 11/21/24 0831 SpO2 97 11/21/24 0831 Anesthesia Post Evaluation Patient location during evaluation: PACU Patient participation: complete - patient participated Level of consciousness: awake and alert Pain management: satisfactory to patient Multimodal analgesia pain management approach Airway patency: patent Two or more strategies used to mitigate risk of obstructive sleep apnea Cardiovascular status: acceptable and hemodynamically stable Respiratory status: acceptable Hydration status: acceptable No notable events documented. MIPS #430 PONV Patient did not receive an inhalational anesthetic (XX430) MIPS # 424 Perioperative Temperature Management Anesthesia time was less than 60 minutes (4256F) MIPS #477 Multimodal Pain Management Not emergent case Patient was not administered multimodal pain management (G2149) Patient reports no pain in PACU (G2149) MIPS #404 Anesthesiology Smoking Abstinence The patient is not a current smoker (e.g. cigarette, cigar, pipe, e- cigarette/vaping/marijuana) If no stop here (XX404) I completed my handoff to the receiving clinician during which we: 1. Identified the patient 2. Identified the responsible provider 3. Reviewed the pertinent medical history 4. Discussed the surgical course 5. Reviewed intra-op anesthesia management and issues during anesthesia 6. Set expectations for post-procedure period 7. Allowed opportunity for questions and acknowledgement of understanding. * Anesthesia Preprocedure Evaluation - ANGIE Montgomery CRNA - 11/14/2024 12:32 PM EST Patient: Milena Mcghee Procedure Information Date/Time: 11/21/24 08 Procedure: PHACOEMULSIFICATION, CATARACT, WITH IOL INSERTION RIGHT EYE (Right: Eye) - 8am surgery, 45 mins Location: [facility] 3 / [facility] OR Surgeons: Prema Garcia MD Relevant Problems No relevant active problems Past Medical History: Past Medical History: No date: Cholecystitis, chronic No date: Chronic back pain No date: Chronic kidney disease Comment: STAGE 3 02/21/2019: Closed nondisplaced fracture of base of fourth metacarpal bone of left hand 02/21/2019: Displaced fracture of base of fifth metacarpal bone of left hand 02/21/2019: Displaced fracture of base of fourth metacarpal bone of left hand No date: GERD (gastroesophageal reflux disease) No date: Hyperlipidemia No date: Hypertension No date: Osteoarthritis No date: PONV (postoperative nausea and vomiting) Past Surgical History: Past Surgical History: 2013 and 2018: BACK SURGERY Comment: L3-4 fusion No date: CHOLECYSTECTOMY No date: COLONOSCOPY Social History: TOBACCO: reports that she has never smoked. She has never been exposed to tobacco smoke. She has never used smokeless tobacco. ETOH: reports no history of alcohol use. Social History Substance and Sexual Activity Drug Use No Family History: Family History Adopted: Yes Screening: Postmenopausal Clinical information reviewed: Tobacco Allergies Meds Med Hx Surg Hx OB Status Fam Hx Soc Hx Physical Exam Airway Mallampati: II TM distance: >3 FB Neck ROM: full Mouth Open: normalendotracheal tube not in place Cardiovascular Comments: 2022- Stress Combined Conclusion: Normal treadmill myocardial perfusion study at 101%% PHR. Perfusion Comments: There is no evidence of inducible ischemia. Stress Function: Left ventricular function post-stress is normal. Post-stress ejection fraction is 75%. No regional wall motion abnormalities. Stress ECG: Conclusion: The stress test is normal. Stress Test: A Arpit protocol stress test was performed. Overall, the patient's exercise capacity was below average for their age. The patient reached stage 2 of the protocol after exercising for 4 min and 40 sec. The patient experienced no angina during the test. Hemodynamics are adequate for diagnosis. Blood pressure demonstrated a normal response and heart rate demonstrated a normal response to stress. The patient's heart rate recovery was normal. The patient reported dyspnea, fatigue, muscle fatigue and no chest pain during the stress test. Resting ECG The ECG shows normal sinus rhythm Dental Comments: INTACT Pulmonary Abdominal Anesthesia Plan patient is NPO appropriate Any family history or previous problems with anesthesia no ASA 3 MAC Any family history or previous problems with anesthesia no The patient is not a current smoker. Anesthetic plan and risks discussed with patient. ELVIS Screening STOP-Bang Total Score: 3 Labs: Lab Results Component Value Date WBC 6.4 08/29/2022 HGB 13.4 08/29/2022 HCT 39.6 08/29/2022 MCV 96.1 08/29/2022 PLT 195 08/29/2022 Lab Results Component Value Date NA 137 08/29/2022 K 3.9 08/29/2022 CL 107 08/29/2022 CO2 26 08/29/2022 BUN 16 08/29/2022 CREATININE 1.23 (H) 08/29/2022 GLUCOSE 100 08/29/2022 CALCIUM 9.0 08/29/2022 ALKPHOS 158 (H) 05/20/2023 EGFR 45.6 (L) 08/29/2022 No echocardiogram results found for the past 14 days 07/31/23 ECG 12-LEAD 07/31/2023 9:03 AM (Final) Narrative Sinus Rhythm -Nonspecific T-abnormality. Low voltage -possible pulmonary disease. ABNORMAL Signed by: Ba Hull on 07/31/2023 9:03 AM Equipment Requests: Additional Equipment Requests documented in this [facility]02-03-2025 Attending History and physical note* Prema Garcia MD - 11/21/2024 7:53 AM EST H&P reviewed. The patient was examined and there are no changes to the H&P. Source Note - Anthony Lopez PA-C - 11/14/2024 12:00 PM EST Comprehensive PreSurgical History and Physical ? Name: Milena Mcghee : 1945 (Age-79 y.o.) Date of Service: Pt seen/examined on 11/14/2024 Procedure Information Date/Time: 11/21/24 0800 Procedure: PHACOEMULSIFICATION, CATARACT, WITH IOL INSERTION RIGHT EYE (Right: Eye) - 8am surgery, 45 mins Location: [facility] OR 3 / [facility] OR Surgeons: Prema Garcia MD Chief Complaint: CLOUDY VISION BOTH EYES ; GOING FOR RIGHT EYE SURGERY ON 11/21/24 ASSESSMENT/PLAN: Patient is considered intermediate risk for this low risk procedure/surgery noted above with no reducible risk factors. Based on the above evaluation, the benefits of the planned procedure likely exceed the risks. The patient is medically optimized to proceed with the planned procedure without any further cardiopulmonary testing. 1) Nuclear sclerotic cataract of right eye ; Managed per surgery 2) HTN Typically controlled Compliant with meds. Taking LISINOPRIL AND NORVASC Follows with PCP Labs and EKG done BP Readings from Last 3 Encounters: 11/14/24 125/78 10/23/23 136/81 08/11/23 (!) 148/88 3) Hypercholesteremia - MEDS: LIPITOR -Managed by PCP - lifestyle modifications encouraged 4) H/O NON CARDIAC CHEST PAIN IN 2022 ;CARDIOLOGY VISIT NOTES DATED 07/31/23 5) S/P L3-L4 FUSION 2013 AND 2017 ;[facility]DER [facility] PAIN MGMT ; ON NEURONTIN 6) PONV Visit Type: Pre-Admission Testing Visit Labs Ordered: NO - NOT INDICATED FOR THIS PROCEDURE Sleep Referral Ordered: NO - NEGATIVE SCREEN PER SLEEP REFERRAL PROTOCOL Total time spent (which include face to face and non face to face encounters) : 45 minutes Toxic drug monitoring/narrow therapeutic index drug monitoring : # Drug name : multiple # Route administered : po # Method of monitoring : none PAT Protocol referenced includes: 1. Anesthesia Lab Protocol Orders 2. Perioperative Cardiovascular Risk Assessment 3. Anesthesia Assessment 4. Pain Assessment and Acute Pain Service Consult (if appropriate) 5. Medical Clearance/Consult from Internal Medicine (IMS) 6. Shower/Wash Order (for designated surgeries) 7. ELVIS Screen and Sleep Clinic Referral (if appropriate) History Of Present Illness: 79 y.o. female who presents with chief complaint mentioned above. Per surgeon's note Patient presents for surgery of the RIGHT eye. C/o cloudy/blurry vision. This has been going on for . Dx with cataracts. Pt has seen the surgeon and elected for above procedure. Denies Hx of DM, Asthma/COPD, ELVIS, CAD, CHF, a fib, IN, TIA/CVA, DVT/PE Hx problems with anesthesia? - PONV Past Medical History: Past Medical History: No date: Cholecystitis, chronic No date: Chronic back pain No date: Chronic kidney disease 02/21/2019: Closed nondisplaced fracture of base of fourth metacarpal bone of left hand 02/21/2019: Displaced fracture of base of fifth metacarpal bone of left hand 02/21/2019: Displaced fracture of base of fourth metacarpal bone of left hand No date: GERD (gastroesophageal reflux disease) No date: Hyperlipidemia No date: Hypertension No date: Osteoarthritis Past Surgical History: Past Surgical History: 2013 and 2017: BACK SURGERY Comment: L3-4 fusion No date: CHOLECYSTECTOMY Medications Prior to Admission: Current Outpatient Medications: acetaminophen (Tylenol) 500 MG tablet, every 4 hours., Disp: , Rfl: amLODIPine (Norvasc) 5 MG tablet, Take 1 tablet by mouth daily., Disp: , Rfl: atorvastatin (Lipitor) 10 MG tablet, Take 1 tablet by mouth daily., Disp: , Rfl: cholecalciferol (Vitamin D-3) 50 MCG (1999 UT) capsule, Take 1 capsule by mouth daily., Disp: , Rfl: gabapentin (Neurontin) 300 MG capsule, Take 300 mg by mouth 2 times daily., Disp: , Rfl: lisinopril 20 MG tablet, Take 1 tablet by mouth daily., Disp: , Rfl: Multiple Vitamin (Multi Vitamin) tablet, Take 1 tablet by mouth daily., Disp: , Rfl: CHRONIC NARCOTIC USAGE: No Allergies: Codeine, Nitrofurantoin, Prednisone, Sulfa antibiotics, Oxycodone, Promethazine, and Sulfasalazine If patient has opioid allergy, is it okay to take Acetaminophen: Yes Social History: TOBACCO: reports that she has never smoked. She has never been exposed to tobacco smoke. She has never used smokeless tobacco. ETOH: reports no history of alcohol use. Social History Substance and Sexual Activity Drug Use No Family History: Family History Adopted: Yes REVIEW OF SYSTEMS: Review of Systems Constitutional: Negative for chills and fever. Respiratory: Negative for shortness of breath. Gastrointestinal: Negative for nausea and vomiting. Pertinent positives as noted in the HPI. Physical Exam: Physical Exam Vitals and nursing note reviewed. Constitutional: Appearance: Normal appearance. HENT: Head: Normocephalic and atraumatic. Mouth/Throat: Mouth: Mucous membranes are moist. Eyes: Extraocular Movements: Extraocular movements intact. Pupils: Pupils are equal, round, and reactive to light. Cardiovascular: Rate and Rhythm: Normal rate and regular rhythm. Pulses: Normal pulses. Pulmonary: Effort: Pulmonary effort is normal. Abdominal: General: Bowel sounds are normal. Musculoskeletal: Cervical back: Normal range of motion and neck supple. Skin: General: Skin is warm. Neurological: General: No focal deficit present. Mental Status: She is alert. Psychiatric: Mood and Affect: Mood normal. Behavior: Behavior normal. Vitals: Vitals Value Taken Time BP 125/78 11/14/24 1206 Temp 36.2 C (97.2 F) 11/14/24 1206 Pulse 84 11/14/24 1206 Resp 16 11/14/24 1206 SpO2 96 % 11/14/24 1206 BP 125/78 Pulse 84 Temp 36.2 C (97.2 F) (Temporal) Resp 16 Ht 1.651 m (5' 5) Wt 79.4 kg (175 lb) SpO2 96% BMI 29.12 kg/m Labs: Lab Results Component Value Date WBC 6.4 08/29/2022 HGB 13.4 08/29/2022 HCT 39.6 08/29/2022 MCV 96.1 08/29/2022 PLT 195 08/29/2022 Lab Results Component Value Date NA 137 08/29/2022 K 3.9 08/29/2022 CL 107 08/29/2022 CO2 26 08/29/2022 BUN 16 08/29/2022 CREATININE 1.23 (H) 08/29/2022 GLUCOSE 100 08/29/2022 CALCIUM 9.0 08/29/2022 ALKPHOS 158 (H) 05/20/2023 EGFR 45.6 (L) 08/29/2022 Kobi's Simple Cardiac Risk Index: Interpretation: 0 Points Class I 0.5% 1 Point Class II 1.3% 2 Points Class III 3.6% 3+ Points Class IV 9.1% METS Walk indoors, such as around the house (1.75 METs), Do light work around the house, such as dusting or washing dishes (2.70 METs), Take care of self, that is eating, dressing, bathing, using the toilet (2.75 METs), Do moderate work around the house such as vacuuming, sweeping floors, or carrying in groceries (3.50 METs), Do yardwork, such as raking leaves, weeding,or pushing a power mower (4.50 METs), Climb a flight of stairs or walk up a hill (5.50 METs) PAT Pain Score: Postop Pain Management Plan (Pain consult ordered?): Pain consult not indicated at this time ? EKG: Done on 07/31/23 Narrative Sinus Rhythm -Nonspecific T-abnormality. Low voltage -possible pulmonary disease. ABNORMAL ECHO and EF: Stress Combined Conclusion: Normal treadmill myocardial perfusion study at 101%% PHR. Perfusion Comments: There is no evidence of inducible ischemia. Stress Function: Left ventricular function post-stress is normal. Post-stress ejection fraction is 75%. No regional wall motion abnormalities. Stress ECG: Conclusion: The stress test is normal. Stress Test: A Arpit protocol stress test was performed. Overall, the patient's exercise capacity was below average for their age. The patient reached stage 2 of the protocol after exercising for 4 min and 40 sec. The patient experienced no angina during the test. Hemodynamics are adequate for diagnosis. Blood pressure demonstrated a normal response and heart rate demonstrated a normal response to stress. The patient's heart rate recovery was normal. The patient reported dyspnea, fatigue, muscle fatigue and no chest pain during the stress test. Electronically signed by: Anthony Lopez PA-C Date: 11/14/2024 at 12:08 PM Cosigned by Og Barney DO at 11/14/2024 8:57 PM EST [id number] Note* Op Note - Prema Garcia MD - 11/21/2024 7:53 AM EST Operative Report NAME: Milena Mcghee : 1945 AGE: 79 y.o. SURGEON: Prema Garcia M.D. OPERATIVE EYE: right PREOPERATIVE DIAGNOSIS: 1. Nuclear sclerotic cataract. POSTOPERATIVE DIAGNOSIS: 1. Nuclear sclerotic cataract. OPERATION: Cataract extraction by phacoemulsification with placement of posterior chamber intraocular lens implant. SCHOOL COOK: See operating room record ASSOCIATE EMBALMER/FUNERAL DIRECTOR: See operating room record ANESTHESIA: Local with topical tetracaine drops and monitored anesthesia care. COMPLICATIONS: None. INDICATIONS: as delineated PROCEDURE: The patient was brought to the operating room, placed in supine position. Attention was given to the operative eye. Under monitored anesthesia care, multiple drops of topical tetracaine were administered. The eye was then prepped and draped in the usual sterile ophthalmic fashion. A wirelid speculum was placed in the operative microscope was used. A 1.0 mm slide port blade was then used to create paracentesis at the 2 o'clock position. Through this incision, 2% lidocaine preservative-free was instilled into the anterior chamber. Following this, Viscoelastic was then used to inflate the anterior chamber and coat the endothelial surface. A 2.4 mm microkeratome was then used to create a triplanar clear corneal incision at the 11 o'clock position. A pre- bent cystotome was then used to initiate an anterior capsulorrhexis. A Utrata forceps was then used to complete the capsulorrhexis and a curvilinear fashion. Balanced salt solution on a flat-tipped cannula was then used to perform hydrodissection and hydrodelineation of the lens. It was confirmed that the lens was freely mobile within the capsular bag phacoemulsification was then performed in a divide and conquer manner to remove the lens nucleus. Phacoemulsification time was CDE 11.99. Automated rrigation and aspiration was then performed to remove all cortical remnants. Capsular bag was inflated using Provisc. The lens injector was then used to place an Akreos MI60L +17.50 diopter intraocular lens directly into the capsular bag. It was rotated in the proper position using the Duran wand. The residual Viscoelasticwas then removed using automated irrigation and aspiration. The wounds were hydrated using balancedsalt solution. There were check for leaks and none were found. Topical antibiotic drops and antibiotic/steroid ointment were placed. The eye was patched and shielded. The patient was transferred to the postanesthesia care unit in good condition. Prema Garcia MD 11/21/24 8:35 AM [id number] Note* Op Note - Prema Garcia MD - 11/21/2024 7:53 AM EST Operative Report NAME: Milena Mcghee : 1945 AGE: 79 y.o. SURGEON: Prema Garcia M.D. OPERATIVE EYE: right PREOPERATIVE DIAGNOSIS: 1. Nuclear sclerotic cataract. POSTOPERATIVE DIAGNOSIS: 1. Nuclear sclerotic cataract. OPERATION: Cataract extraction by phacoemulsification with placement of posterior chamber intraocular lens implant. SCHOOL COOK: See operating room record ASSOCIATE EMBALMER/FUNERAL DIRECTOR: See operating room record ANESTHESIA: Local with topical tetracaine drops and monitored anesthesia care. COMPLICATIONS: None. INDICATIONS: as delineated PROCEDURE: The patient was brought to the operating room, placed in supine position. Attention was given to the operative eye. Under monitored anesthesia care, multiple drops of topical tetracaine were administered. The eye was then prepped and draped in the usual sterile ophthalmic fashion. A wirelid speculum was placed in the operative microscope was used. A 1.0 mm slide port blade was then used to create paracentesis at the 2 o'clock position. Through this incision, 2% lidocaine preservative-free was instilled into the anterior chamber. Following this, Viscoelastic was then used to inflate the anterior chamber and coat the endothelial surface. A 2.4 mm microkeratome was then used to create a triplanar clear corneal incision at the 11 o'clock position. A pre- bent cystotome was then used to initiate an anterior capsulorrhexis. A Utrata forceps was then used to complete the capsulorrhexis and a curvilinear fashion. Balanced salt solution on a flat-tipped cannula was then used to perform hydrodissection and hydrodelineation of the lens. It was confirmed that the lens was freely mobile within the capsular bag phacoemulsification was then performed in a divide and conquer manner to remove the lens nucleus. Phacoemulsification time was CDE 11.99. Automated rrigation and aspiration was then performed to remove all cortical remnants. Capsular bag was inflated using Provisc. The lens injector was then used to place an Akreos MI60L +17.50 diopter intraocular lens directly into the capsular bag. It was rotated in the proper position using the Duran wand. The residual Viscoelasticwas then removed using automated irrigation and aspiration. The wounds were hydrated using balancedsalt solution. There were check for leaks and none were found. Topical antibiotic drops and antibiotic/steroid ointment were placed. The eye was patched and shielded. The patient was transferred to the postanesthesia care unit in good condition. Prema Garcia MD 11/21/24 8:35 AM [id number] NoteH&P reviewed. The patient was examined and there are no changes to the H&P.[facility]02-03-2025 History and physical note* Prema Garcia MD - 11/21/2024 7:53 AM EST H&P reviewed. The patient was examined and there are no changes to the H&P. Source Note - Anthony Lopez PA-C - 11/14/2024 12:00 PM EST Comprehensive PreSurgical History and Physical ? Name: Milena Mcghee : 1945 (Age-79 y.o.) Date of Service: Pt seen/examined on 11/14/2024 Procedure Information Date/Time: 11/21/24 0800 Procedure: PHACOEMULSIFICATION, CATARACT, WITH IOL INSERTION RIGHT EYE (Right: Eye) - 8am surgery, 45 mins Location: [place] [address] / [facility] OR Surgeons: Prema Garcia MD Chief Complaint: CLOUDY VISION BOTH EYES ; GOING FOR RIGHT EYE SURGERY ON 11/21/24 ASSESSMENT/PLAN: Patient is considered intermediate risk for this low risk procedure/surgery noted above with no reducible risk factors. Based on the above evaluation, the benefits of the planned procedure likely exceed the risks. The patient is medically optimized to proceed with the planned procedure without any further cardiopulmonary testing. 1) Nuclear sclerotic cataract of right eye ; Managed per surgery 2) HTN Typically controlled Compliant with meds. Taking LISINOPRIL AND NORVASC Follows with PCP Labs and EKG done BP Readings from Last 3 Encounters: 11/14/24 125/78 10/23/23 136/81 08/11/23 (!) 148/88 3) Hypercholesteremia - MEDS: LIPITOR -Managed by PCP - lifestyle modifications encouraged 4) H/O NON CARDIAC CHEST PAIN IN 2022 ;CARDIOLOGY VISIT NOTES DATED 07/31/23 5) S/P L3-L4 FUSION 2013 AND 2017 ;UNDER [facility] PAIN MGMT ; ON NEURONTIN 6) PONV Visit Type: Pre-Admission Testing Visit Labs Ordered: NO - NOT INDICATED FOR THIS PROCEDURE Sleep Referral Ordered: NO - NEGATIVE SCREEN PER SLEEP REFERRAL PROTOCOL Total time spent (which include face to face and non face to face encounters) : 45 minutes Toxic drug monitoring/narrow therapeutic index drug monitoring : # Drug name : multiple # Route administered : po # Method of monitoring : none PAT Protocol referenced includes: 1. Anesthesia Lab Protocol Orders 2. Perioperative Cardiovascular Risk Assessment 3. Anesthesia Assessment 4. Pain Assessment and Acute Pain Service Consult (if appropriate) 5. Medical Clearance/Consult from Internal Medicine ([facility]) 6. Shower/Wash Order (for designated surgeries) 7. ELVIS Screen and Sleep Clinic Referral (if appropriate) History Of Present Illness: 79 y.o. female who presents with chief complaint mentioned above. Per surgeon's note Patient presents for surgery of the RIGHT eye. C/o cloudy/blurry vision. This has been going on for . Dx with cataracts. Pt has seen the surgeon and elected for above procedure. Denies Hx of DM, Asthma/COPD, ELVIS, CAD, CHF, a fib, IN, TIA/CVA, DVT/PE Hx problems with anesthesia? - PONV Past Medical History: Past Medical History: No date: Cholecystitis, chronic No date: Chronic back pain No date: Chronic kidney disease 02/21/2019: Closed nondisplaced fracture of base of fourth metacarpal bone of left hand 02/21/2019: Displaced fracture of base of fifth metacarpal bone of left hand 02/21/2019: Displaced fracture of base of fourth metacarpal bone of left hand No date: GERD (gastroesophageal reflux disease) No date: Hyperlipidemia No date: Hypertension No date: Osteoarthritis Past Surgical History: Past Surgical History: 2013 and 2017: BACK SURGERY Comment: L3-4 fusion No date: CHOLECYSTECTOMY Medications Prior to Admission: Current Outpatient Medications: acetaminophen (Tylenol) 500 MG tablet, every 4 hours., Disp: , Rfl: amLODIPine (Norvasc) 5 MG tablet, Take 1 tablet by mouth daily., Disp: , Rfl: atorvastatin (Lipitor) 10 MG tablet, Take 1 tablet by mouth daily., Disp: , Rfl: cholecalciferol (Vitamin D-3) 50 MCG (2000 UT) capsule, Take 1 capsule by mouth daily., Disp: , Rfl: gabapentin (Neurontin) 300 MG capsule, Take 300 mg by mouth 2 times daily., Disp: , Rfl: lisinopril 20 MG tablet, Take 1 tablet by mouth daily., Disp: , Rfl: Multiple Vitamin (Multi Vitamin) tablet, Take 1 tablet by mouth daily., Disp: , Rfl: CHRONIC NARCOTIC USAGE: No Allergies: Codeine, Nitrofurantoin, Prednisone, Sulfa antibiotics, Oxycodone, Promethazine, and Sulfasalazine If patient has opioid allergy, is it okay to take Acetaminophen: Yes Social History: TOBACCO: reports that she has never smoked. She has never been exposed to tobacco smoke. She has never used smokeless tobacco. ETOH: reports no history of alcohol use. Social History Substance and Sexual Activity Drug Use No Family History: Family History Adopted: Yes REVIEW OF SYSTEMS: Review of Systems Constitutional: Negative for chills and fever. Respiratory: Negative for shortness of breath. Gastrointestinal: Negative for nausea and vomiting. Pertinent positives as noted in the HPI. Physical Exam: Physical Exam Vitals and nursing note reviewed. Constitutional: Appearance: Normal appearance. HENT: Head: Normocephalic and atraumatic. Mouth/Throat: Mouth: Mucous membranes are moist. Eyes: Extraocular Movements: Extraocular movements intact. Pupils: Pupils are equal, round, and reactive to light. Cardiovascular: Rate and Rhythm: Normal rate and regular rhythm. Pulses: Normal pulses. Pulmonary: Effort: Pulmonary effort is normal. Abdominal: General: Bowel sounds are normal. Musculoskeletal: Cervical back: Normal range of motion and neck supple. Skin: General: Skin is warm. Neurological: General: No focal deficit present. Mental Status: She is alert. Psychiatric: Mood and Affect: Mood normal. Behavior: Behavior normal. Vitals: Vitals Value Taken Time BP 125/78 11/14/24 1206 Temp 36.2 C (97.2 F) 11/14/24 1206 Pulse 84 11/14/24 1206 Resp 16 11/14/24 1206 SpO2 96 % 11/14/24 1206 BP 125/78 Pulse 84 Temp 36.2 C (97.2 F) (Temporal) Resp 16 Ht 1.651 m (5' 5) Wt 79.4 kg (175 lb) SpO2 96% BMI 29.12 kg/m Labs: Lab Results Component Value Date WBC 6.4 08/29/2022 HGB 13.4 08/29/2022 HCT 39.6 08/29/2022 MCV 96.1 08/29/2022 PLT 195 08/29/2022 Lab Results Component Value Date NA 137 08/29/2022 K 3.9 08/29/2022 CL 107 08/29/2022 CO2 26 08/29/2022 BUN 16 08/29/2022 CREATININE 1.23 (H) 08/29/2022 GLUCOSE 100 08/29/2022 CALCIUM 9.0 08/29/2022 ALKPHOS 158 (H) 05/20/2023 EGFR 45.6 (L) 08/29/2022 Kobi's Simple Cardiac Risk Index: Interpretation: 0 Points Class I 0.5% 1 Point Class II 1.3% 2 Points Class III 3.6% 3+ Points Class IV 9.1% METS Walk indoors, such as around the house (1.75 METs), Do light work around the house, such as dusting or washing dishes (2.70 METs), Take care of self, that is eating, dressing, bathing, using the toilet (2.75 METs), Do moderate work around the house such as vacuuming, sweeping floors, or carrying in groceries (3.50 METs), Do yardwork, such as raking leaves, weeding,or pushing a power mower (4.50 METs), Climb a flight of stairs or walk up a hill (5.50 METs) PAT Pain Score: Postop Pain Management Plan (Pain consult ordered?): Pain consult not indicated at this time ? EKG: Done on 07/31/23 Narrative Sinus Rhythm -Nonspecific T-abnormality. Low voltage -possible pulmonary disease. ABNORMAL ECHO and EF: Stress Combined Conclusion: Normal treadmill myocardial perfusion study at 101%% PHR. Perfusion Comments: There is no evidence of inducible ischemia. Stress Function: Left ventricular function post-stress is normal. Post-stress ejection fraction is 75%. No regional wall motion abnormalities. Stress ECG: Conclusion: The stress test is normal. Stress Test: A Arpit protocol stress test was performed. Overall, the patient's exercise capacity was below average for their age. The patient reached stage 2 of the protocol after exercising for 4 min and 40 sec. The patient experienced no angina during the test. Hemodynamics are adequate for diagnosis. Blood pressure demonstrated a normal response and heart rate demonstrated a normal response to stress. The patient's heart rate recovery was normal. The patient reported dyspnea, fatigue, muscle fatigue and no chest pain during the stress test. Electronically signed by: Anthony Lopez PA-C Date: 11/14/2024 at 12:08 PM Cosigned by Og Barney DO at 11/14/2024 8:57 PM EST documented in this [facility]02-03-2025 Miscellaneous Notes* Op Note - Prema Garcia MD - 11/21/2024 7:53 AM EST Operative Report NAME: Milena Mcghee : 1945 AGE: 79 y.o. SURGEON: Prema Garcia M.D. OPERATIVE EYE: right PREOPERATIVE DIAGNOSIS: 1. Nuclear sclerotic cataract. POSTOPERATIVE DIAGNOSIS: 1. Nuclear sclerotic cataract. OPERATION: Cataract extraction by phacoemulsification with placement of posterior chamber intraocular lens implant. SCHOOL COOK: See operating room record ASSOCIATE EMBALMER/FUNERAL DIRECTOR: See operating room record ANESTHESIA: Local with topical tetracaine drops and monitored anesthesia care. COMPLICATIONS: None. INDICATIONS: as delineated PROCEDURE: The patient was brought to the operating room, placed in supine position. Attention was given to the operative eye. Under monitored anesthesia care, multiple drops of topical tetracaine were administered. The eye was then prepped and draped in the usual sterile ophthalmic fashion. A wirelid speculum was placed in the operative microscope was used. A 1.0 mm slide port blade was then used to create paracentesis at the 2 o'clock position. Through this incision, 2% lidocaine preservative-free was instilled into the anterior chamber. Following this, Viscoelastic was then used to inflate the anterior chamber and coat the endothelial surface. A 2.4 mm microkeratome was then used to create a triplanar clear corneal incision at the 11 o'clock position. A pre- bent cystotome was then used to initiate an anterior capsulorrhexis. A Utrata forceps was then used to complete the capsulorrhexis and a curvilinear fashion. Balanced salt solution on a flat-tipped cannula was then used to perform hydrodissection and hydrodelineation of the lens. It was confirmed that the lens was freely mobile within the capsular bag phacoemulsification was then performed in a divide and conquer manner to remove the lens nucleus. Phacoemulsification time was CDE 11.99. Automated rrigation and aspiration was then performed to remove all cortical remnants. Capsular bag was inflated using Provisc. The lens injector was then used to place an Akreos MI60L +17.50 diopter intraocular lens directly into the capsular bag. It was rotated in the proper position using the Duran wand. The residual Viscoelasticwas then removed using automated irrigation and aspiration. The wounds were hydrated using balancedsalt solution. There were check for leaks and none were found. Topical antibiotic drops and antibiotic/steroid ointment were placed. The eye was patched and shielded. The patient was transferred to the postanesthesia care unit in good condition. Prema Garcia MD 11/21/24 8:35 AM * Perioperative Nursing Note - Demetrius Rose RN - 11/21/2024 7:10 AM EST Discharged to home . Accompanied by Yoko jenkins . AVS and education reviewed with patient and daughter, both verbalized understanding. There is a question about third eye drop. Message out to physician. Family opted not to wait for response. This RN will call with instructions. Mode of transportation private vehicle Belongings sent. documented in this [facility]02-03-2025 Note* Perioperative Nursing Note - Demetrius Rose RN - 11/21/2024 7:10 AM EST Discharged to home . Accompanied by daughterYoko . AVS and education reviewed with patient and daughter, both verbalized understanding. There is a question about third eye drop. Message out to physician. Family opted not to wait for response. This RN will call with instructions. Mode of transportation private vehicle Belongings sent. [id number] [facility]* Perioperative Nursing Note - Demetrius Rose RN - 11/21/2024 7:10 AM EST Discharged to home . Accompanied by Yoko jenkins . AVS and education reviewed with patient and daughter, both verbalized understanding. There is a question about third eye drop. Message out to physician. Family opted not to wait for response. This RN will call with instructions. Mode of transportation private vehicle Belongings sent. [id number] NoteDischarged to home . Accompanied by Yoko jenkins . AVS and education reviewed with patient and daughter, both verbalized understanding. There is a question about third eye drop. Message out to physician. Family opted not to wait for response. This RN will call with instructions. Mode of transportation private vehicle Belongings sent.[facility]01-27-2025 Anesthesiology Preoperative evaluation and management note* Anesthesia Preprocedure Evaluation - Conrado Mckeon, MED SURG NURSE - LIGHT RAIL TRANSIT OPERATOR - 11/14/2024 12:32 PM EST Patient: Milena Mcghee Procedure Information Date/Time: 11/21/24 0800 Procedure: PHACOEMULSIFICATION, CATARACT, WITH IOL INSERTION RIGHT EYE (Right: Eye) - 8am surgery, 45 mins Location: [place] [address] / [facility] OR Surgeons: Prema Garcia MD Relevant Problems No relevant active problems Past Medical History: Past Medical History: No date: Cholecystitis, chronic No date: Chronic back pain No date: Chronic kidney disease Comment: STAGE 3 02/21/2019: Closed nondisplaced fracture of base of fourth metacarpal bone of left hand 02/21/2019: Displaced fracture of base of fifth metacarpal bone of left hand 02/21/2019: Displaced fracture of base of fourth metacarpal bone of left hand No date: GERD (gastroesophageal reflux disease) No date: Hyperlipidemia No date: Hypertension No date: Osteoarthritis No date: PONV (postoperative nausea and vomiting) Past Surgical History: Past Surgical History: 2013 and 2018: BACK SURGERY Comment: L3-4 fusion No date: CHOLECYSTECTOMY No date: COLONOSCOPY Social History: TOBACCO: reports that she has never smoked. She has never been exposed to tobacco smoke. She has never used smokeless tobacco. ETOH: reports no history of alcohol use. Social History Substance and Sexual Activity Drug Use No Family History: Family History Adopted: Yes Screening: Postmenopausal Clinical information reviewed: Tobacco Allergies Meds Med Hx Surg Hx OB Status Fam Hx Soc Hx Physical Exam Airway Mallampati: II TM distance: >3 FB Neck ROM: full Mouth Open: normalendotracheal tube not in place Cardiovascular Comments: 2022- Stress Combined Conclusion: Normal treadmill myocardial perfusion study at 101%% PHR. Perfusion Comments: There is no evidence of inducible ischemia. Stress Function: Left ventricular function post-stress is normal. Post-stress ejection fraction is 75%. No regional wall motion abnormalities. Stress ECG: Conclusion: The stress test is normal. Stress Test: A Arpit protocol stress test was performed. Overall, the patient's exercise capacity was below average for their age. The patient reached stage 2 of the protocol after exercising for 4 min and 40 sec. The patient experienced no angina during the test. Hemodynamics are adequate for diagnosis. Blood pressure demonstrated a normal response and heart rate demonstrated a normal response to stress. The patient's heart rate recovery was normal. The patient reported dyspnea, fatigue, muscle fatigue and no chest pain during the stress test. Resting ECG The ECG shows normal sinus rhythm Dental Comments: INTACT Pulmonary Abdominal Anesthesia Plan patient is NPO appropriate Any family history or previous problems with anesthesia no ASA 3 MAC Any family history or previous problems with anesthesia no The patient is not a current smoker. Anesthetic plan and risks discussed with patient. ELVIS Screening STOP-Bang Total Score: 3 Labs: Lab Results Component Value Date WBC 6.4 08/29/2022 HGB 13.4 08/29/2022 HCT 39.6 08/29/2022 MCV 96.1 08/29/2022 PLT 195 08/29/2022 Lab Results Component Value Date NA 137 08/29/2022 K 3.9 08/29/2022 CL 107 08/29/2022 CO2 26 08/29/2022 BUN 16 08/29/2022 CREATININE 1.23 (H) 08/29/2022 GLUCOSE 100 08/29/2022 CALCIUM 9.0 08/29/2022 ALKPHOS 158 (H) 05/20/2023 EGFR 45.6 (L) 08/29/2022 No echocardiogram results found for the past 14 days 07/31/23 ECG 12-LEAD 07/31/2023 9:03 AM (Final) Narrative Sinus Rhythm -Nonspecific T-abnormality. Low voltage -possible pulmonary disease. ABNORMAL Signed by: Ba Hull on 07/31/2023 9:03 AM Equipment Requests: Additional Equipment Requests [id number] NotePatient: Milena Mcghee Procedure Information Date/Time: 11/21/24 0800 Procedure: PHACOEMULSIFICATION, CATARACT, WITH IOL INSERTION RIGHT EYE (Right: Eye) - 8am surgery, 45 mins Location: [facility] / [facility] Surgeons: Prema Garcia MD Relevant Problems No relevant active problems Past Medical History: Past Medical History: No date: Cholecystitis, chronic No date: Chronic back pain No date: Chronic kidney disease Comment: STAGE 3 02/21/2019: Closed nondisplaced fracture of base of fourth metacarpal bone of left hand 02/21/2019: Displaced fracture of base of fifth metacarpal bone of left hand 02/21/2019: Displaced fracture of base of fourth metacarpal bone of left hand No date: GERD (gastroesophageal reflux disease) No date: Hyperlipidemia No date: Hypertension No date: Osteoarthritis No date: PONV (postoperative nausea and vomiting) Past Surgical History: Past Surgical History: 2013 and 2017: BACK SURGERY Comment: L3-4 fusion No date: CHOLECYSTECTOMY No date: COLONOSCOPY Social History: TOBACCO: reports that she has never smoked. She has never been exposed to tobacco smoke. She has never used smokeless tobacco. ETOH: reports no history of alcohol use. Social History Substance and Sexual Activity Drug Use No Family History: Family History Adopted: Yes Screening: Postmenopausal Clinical information reviewed: Tobacco Allergies Meds Med Hx Surg Hx OB Status Fam Hx Soc Hx Physical Exam Airway Mallampati: II TM distance: >3 FB Neck ROM: full Mouth Open: normalendotracheal tube not in place Cardiovascular Comments: 2022- ? Stress Combined Conclusion: Normal treadmill myocardial perfusion study at 101%% PHR. ? Perfusion Comments: There is no evidence of inducible ischemia. ? Stress Function: Left ventricular function post-stress is normal. Post-stress ejection fraction is 75%. No regional wall motion abnormalities. ? Stress ECG: Conclusion: The stress test is normal. ? Stress Test: A Arpit protocol stress test was performed. Overall, the patient's exercise capacity was below average for their age. The patient reached stage 2 of the protocol after exercising for 4 min and 40 sec. The patient experienced no angina during the test. Hemodynamics are adequate for diagnosis. Blood pressure demonstrated a normal response and heart rate demonstrated a normal response to stress. The patient's heart rate recovery was normal. The patient reported dyspnea, fatigue, muscle fatigue and no chest pain during the stress test. Resting ECG The ECG shows normal sinus rhythm Dental Comments: INTACT Pulmonary Abdominal Anesthesia Plan patient is NPO appropriate Any family history or previous problems with anesthesia no ASA 3 MAC Any family history or previous problems with anesthesia no The patient is not a current smoker. Anesthetic plan and risks discussed with patient. ELVIS Screening STOP-Bang Total Score: 3 Labs: Lab Results Component Value Date WBC 6.4 08/29/2022 HGB 13.4 08/29/2022 HCT 39.6 08/29/2022 MCV 96.1 08/29/2022 PLT 195 08/29/2022 Lab Results Component Value Date NA 137 08/29/2022 K 3.9 08/29/2022 CL 107 08/29/2022 CO2 26 08/29/2022 BUN 16 08/29/2022 CREATININE 1.23 (H) 08/29/2022 GLUCOSE 100 08/29/2022 CALCIUM 9.0 08/29/2022 ALKPHOS 158 (H) 05/20/2023 EGFR 45.6 (L) 08/29/2022 No echocardiogram results found for the past 14 days 07/31/23 ECG 12-LEAD 07/31/2023 9:03 AM (Final) Narrative Sinus Rhythm -Nonspecific T-abnormality. Low voltage -possible pulmonary disease. ABNORMAL Signed by: Ba Hull on 07/31/2023 9:03 AM Equipment Requests: [facility] NoteComprehensive PreSurgical History and Physical ? Name: Milena Mcghee : 1945 (Age-79 y.o.) Date of Service: Pt seen/examined on 11/14/2024 Procedure Information Date/Time: 11/21/24 0800 Procedure: PHACOEMULSIFICATION, CATARACT, WITH IOL INSERTION RIGHT EYE (Right: Eye) - 8am surgery, 45 mins Location: [place] [id number] / [facility] OR Surgeons: Prema Garcia MD Chief Complaint: CLOUDY VISION BOTH EYES ; GOING FOR RIGHT EYE SURGERY ON 11/21/24 ASSESSMENT/PLAN: Patient is considered intermediate risk for this low risk procedure/surgery noted above with no reducible risk factors. Based on the above evaluation, the benefits of the planned procedure likely exceed the risks. The patient is medically optimized to proceed with the planned procedure without any further cardiopulmonary testing. 1) Nuclear sclerotic cataract of right eye ; Managed per surgery 2) HTN Typically controlled Compliant with meds. Taking LISINOPRIL AND NORVASC Follows with PCP Labs and EKG done BP Readings from Last 3 Encounters: 11/14/24 125/78 10/23/23 136/81 08/11/23 (!) 148/88 3) Hypercholesteremia - MEDS: LIPITOR -Managed by PCP - lifestyle modifications encouraged 4) H/O NON CARDIAC CHEST PAIN IN 2022 ;CARDIOLOGY VISIT NOTES DATED 07/31/23 5) S/P L3-L4 FUSION 2013 AND 2017 ;[facility] PAIN MGMT ; ON NEURONTIN 6) PONV Visit Type: Pre-Admission Testing Visit Labs Ordered: NO - NOT INDICATED FOR THIS PROCEDURE Sleep Referral Ordered: NO - NEGATIVE SCREEN PER SLEEP REFERRAL PROTOCOL Total time spent (which include face to face and non face to face encounters) : 45 minutes Toxic drug monitoring/narrow therapeutic index drug monitoring : # Drug name : multiple # Route administered : po # Method of monitoring : none PAT Protocol referenced includes: 1. Anesthesia Lab Protocol Orders 2. Perioperative Cardiovascular Risk Assessment 3. Anesthesia Assessment 4. Pain Assessment and Acute Pain Service Consult (if appropriate) 5. Medical Clearance/Consult from Internal Medicine ([facility]) 6. Shower/Wash Order (for designated surgeries) 7. ELVIS Screen and Sleep Clinic Referral (if appropriate) History Of Present Illness: 79 y.o. female who presents with chief complaint mentioned above. Per surgeon's note Patient presents for surgery of the RIGHT eye. C/o cloudy/blurry vision. This has been going on for . Dx with cataracts. Pt has seen the surgeon and elected for above procedure. Denies Hx of DM, Asthma/COPD, ELVIS, CAD, CHF, a fib, IN, TIA/CVA, DVT/PE Hx problems with anesthesia? - PONV Past Medical History: Past Medical History: No date: Cholecystitis, chronic No date: Chronic back pain No date: Chronic kidney disease 02/21/2019: Closed nondisplaced fracture of base of fourth metacarpal bone of left hand 02/21/2019: Displaced fracture of base of fifth metacarpal bone of left hand 02/21/2019: Displaced fracture of base of fourth metacarpal bone of left hand No date: GERD (gastroesophageal reflux disease) No date: Hyperlipidemia No date: Hypertension No date: Osteoarthritis Past Surgical History: Past Surgical History: 2013 and 2017: BACK SURGERY Comment: L3-4 fusion No date: CHOLECYSTECTOMY Medications Prior to Admission: Current Outpatient Medications: acetaminophen (Tylenol) 500 MG tablet, every 4 hours., Disp: , Rfl: amLODIPine (Norvasc) 5 MG tablet, Take 1 tablet by mouth daily., Disp: , Rfl: atorvastatin (Lipitor) 10 MG tablet, Take 1 tablet by mouth daily., Disp: , Rfl: cholecalciferol (Vitamin D-3) 50 MCG (2000 UT) capsule, Take 1 capsule by mouth daily., Disp: , Rfl: gabapentin (Neurontin) 300 MG capsule, Take 300 mg by mouth 2 times daily., Disp: , Rfl: lisinopril 20 MG tablet, Take 1 tablet by mouth daily., Disp: , Rfl: Multiple Vitamin (Multi Vitamin) tablet, Take 1 tablet by mouth daily., Disp: , Rfl: CHRONIC NARCOTIC USAGE: No Allergies: Codeine, Nitrofurantoin, Prednisone, Sulfa antibiotics, Oxycodone, Promethazine, and Sulfasalazine If patient has opioid allergy, is it okay to take Acetaminophen: Yes Social History: TOBACCO: reports that she has never smoked. She has never been exposed to tobacco smoke. She has never used smokeless tobacco. ETOH: reports no history of alcohol use. Social History Substance and Sexual Activity Drug Use No Family History: Family History Adopted: Yes REVIEW OF SYSTEMS: Review of Systems Constitutional: Negative for chills and fever. Respiratory: Negative for shortness of breath. Gastrointestinal: Negative for nausea and vomiting. Pertinent positives as noted in the HPI. Physical Exam: Physical Exam Vitals and nursing note reviewed. Constitutional: Appearance: Normal appearance. HENT: Head: Normocephalic and atraumatic. Mouth/Throat: Mouth: Mucous membranes are moist. (more content not included)...[facility] [id number] NoteComprehensive PreSurgical History and Physical ? Name: Milena Mcghee : 1945 (Age-79 y.o.) Date of Service: Pt seen/examined on 11/14/2024 Procedure Information Date/Time: 11/21/24 0800 Procedure: PHACOEMULSIFICATION, CATARACT, WITH IOL INSERTION RIGHT EYE (Right: Eye) - 8am surgery, 45 mins Location: [facility] / [facility] OR Surgeons: Prema Garcia MD Chief Complaint: CLOUDY VISION BOTH EYES ; GOING FOR RIGHT EYE SURGERY ON 11/21/24 ASSESSMENT/PLAN: Patient is considered intermediate risk for this low risk procedure/surgery noted above with no reducible risk factors. Based on the above evaluation, the benefits of the planned procedure likely exceed the risks. The patient is medically optimized to proceed with the planned procedure without any further cardiopulmonary testing. 1) Nuclear sclerotic cataract of right eye ; Managed per surgery 2) HTN Typically controlled Compliant with meds. Taking LISINOPRIL AND NORVASC Follows with PCP Labs and EKG done BP Readings from Last 3 Encounters: 11/14/24 125/78 10/23/23 136/81 08/11/23 (!) 148/88 3) Hypercholesteremia - MEDS: LIPITOR -Managed by PCP - lifestyle modifications encouraged 4) H/O NON CARDIAC CHEST PAIN IN 2022 ;CARDIOLOGY VISIT NOTES DATED 07/31/23 5) S/P L3-L4 FUSION 2013 AND 2017 ;[facility] PAIN MGMT ; ON NEURONTIN 6) PONV Visit Type: Pre-Admission Testing Visit Labs Ordered: NO - NOT INDICATED FOR THIS PROCEDURE Sleep Referral Ordered: NO - NEGATIVE SCREEN PER SLEEP REFERRAL PROTOCOL Total time spent (which include face to face and non face to face encounters) : 45 minutes Toxic drug monitoring/narrow therapeutic index drug monitoring : # Drug name : multiple # Route administered : po # Method of monitoring : none PAT Protocol referenced includes: 1. Anesthesia Lab Protocol Orders 2. Perioperative Cardiovascular Risk Assessment 3. Anesthesia Assessment 4. Pain Assessment and Acute Pain Service Consult (if appropriate) 5. Medical Clearance/Consult from Internal Medicine ([facility]) 6. Shower/Wash Order (for designated surgeries) 7. ELVIS Screen and Sleep Clinic Referral (if appropriate) History Of Present Illness: 79 y.o. female who presents with chief complaint mentioned above. Per surgeon's note Patient presents for surgery of the RIGHT eye. C/o cloudy/blurry vision. This has been going on for . Dx with cataracts. Pt has seen the surgeon and elected for above procedure. Denies Hx of DM, Asthma/COPD, ELVIS, CAD, CHF, a fib, IN, TIA/CVA, DVT/PE Hx problems with anesthesia? - PONV Past Medical History: Past Medical History: No date: Cholecystitis, chronic No date: Chronic back pain No date: Chronic kidney disease 02/21/2019: Closed nondisplaced fracture of base of fourth metacarpal bone of left hand 02/21/2019: Displaced fracture of base of fifth metacarpal bone of left hand 02/21/2019: Displaced fracture of base of fourth metacarpal bone of left hand No date: GERD (gastroesophageal reflux disease) No date: Hyperlipidemia No date: Hypertension No date: Osteoarthritis Past Surgical History: Past Surgical History: 2013 and 2017: BACK SURGERY Comment: L3-4 fusion No date: CHOLECYSTECTOMY Medications Prior to Admission: Current Outpatient Medications: acetaminophen (Tylenol) 500 MG tablet, every 4 hours., Disp: , Rfl: amLODIPine (Norvasc) 5 MG tablet, Take 1 tablet by mouth daily., Disp: , Rfl: atorvastatin (Lipitor) 10 MG tablet, Take 1 tablet by mouth daily., Disp: , Rfl: cholecalciferol (Vitamin D-3) 50 MCG (2000 UT) capsule, Take 1 capsule by mouth daily., Disp: , Rfl: gabapentin (Neurontin) 300 MG capsule, Take 300 mg by mouth 2 times daily., Disp: , Rfl: lisinopril 20 MG tablet, Take 1 tablet by mouth daily., Disp: , Rfl: Multiple Vitamin (Multi Vitamin) tablet, Take 1 tablet by mouth daily., Disp: , Rfl: CHRONIC NARCOTIC USAGE: No Allergies: Codeine, Nitrofurantoin, Prednisone, Sulfa antibiotics, Oxycodone, Promethazine, and Sulfasalazine If patient has opioid allergy, is it okay to take Acetaminophen: Yes Social History: TOBACCO: reports that she has never smoked. She has never been exposed to tobacco smoke. She has never used smokeless tobacco. ETOH: reports no history of alcohol use. Social History Substance and Sexual Activity Drug Use No Family History: Family History Adopted: Yes REVIEW OF SYSTEMS: Review of Systems Constitutional: Negative for chills and fever. Respiratory: Negative for shortness of breath. Gastrointestinal: Negative for nausea and vomiting. Pertinent positives as noted in the HPI. Physical Exam: Physical Exam Vitals and nursing note reviewed. Constitutional: Appearance: Normal appearance. HENT: Head: Normocephalic and atraumatic. Mouth/Throat: Mouth: Mucous membranes are moist. (more content not included)...[facility]12[facility] Evaluation note* Diagnosis Onset Date Resolution Status Admit Date Cystitis acute September 29, 2024 4:50pm Chronic lower back pain chronic D ec2023 4:50pm Cystitis acute December 08, 2024 7:56pm Lower abdominal pain acute 2024 7:56pm Lower back pain acute December 08, 2024 7:56pm Cystitis acute January 04 5:33pm Spinal stenosis, lumbar abby on without neurogenic claudication acute January 04, 2025 5:33pm [facility] Work Phone: 1(878) 162-983011-26-2024 Evaluation note* Diagnosis Onset Date Resolution Status Admit Date Pain of left heel acute be r 2023 4:30pm Plantar fasciitis acute 2023 4:30pm Cystitis acute September 29, 2024 4:50pm Chronic lower back pain chronic D ec2023 4:50pm Cystitis acute December 08, 2024 7:56pm Lower abdominal pain acute 2024 7:56pm Lower back pain acute December 08, 2024 7:56pm [facility] Work Phone: 1(637) 975-786401-05-2024 History of Present illness Narrative* Chantell Cruz MD - 10/23/2023 2:45 PM EST Images from the original note were not included. [facility] [address] [facility] [address] [address] [facility] [id number] Dept: [phone] Dept Chief Complaint Patient presents with Follow-up Last seen in 2020 Low back pack starting up a few weeks ago after a stress test and on and off since 02/25 back pain currently SUBJECTIVE HPI: Milena Mcghee is a 78 y.o. year old here today for follow-up of chronic low back pain. She was lastseen by me back in 09/2021. She had been doing pretty good until a recent stress test back in 07/2023, however, which significantly flared up her back pain again. It has gotten a bit better, though, after her PCP gave her a rx for flexeril and a short course of steroids. She still feels that her endurance related to her back is pretty poor lately, though. LOCATION OF PAIN: left low back RADIATES: just into left posterolateral hip / buttock CONSTANT/INTERMITTENT: Constant NUMBNESS/TINGLING? denies WEAKNESS? denies URINARY/FECAL INCONTINENCE? No SADDLE ANESTHESIA? no INTERFERING WITH SLEEP? No CURRENT PAIN MEDS: Tylenol 1000 mg PRN (usually once or twice a day), Flexeril 5 mg PRN, [id number] mg daily ANY SIGNIFICANT SIDE EFFECTS FROM CURRENT PAIN MEDS? no ARE THEY PROVIDING ADEQUATE ANALGESIA? mild ARE THEY PROVIDING ADEQUATE FUNCTIONAL IMPROVEMENT? mild PAIN MEDS PREVIOUSLY TRIED/FAILED: Meloxicam (had helped but had to stop due to kidney function concerns), duloxetine (side effects), lidocaine patches OTHER CURRENT / PREVIOUS TREATMENT Physical therapy -- Last did shortly after her most recent back surgery in 2018 TENS -- No Chiropractor -- No Acupuncture -- No Prior Pain Clinic -- Dr Morrison in [place] Chronic opiates -- No Previous Pain Procedures -- some previous lumbar injections prior to her back surgeries 09/10/20 -- LEFT L4 and L5 TFESI -- >50% improvement in leg symptoms, only 2 days of relief of axial back pain 02/25/21 -- LEFT SI joint -- 30% improvement in pain, >50% improvement in function / ambulation Patient Active Problem List Diagnosis Date Noted Sacroiliitis (HCC) 02/25/2021 Epigastric pain 01/16/2021 BRBPR (bright red blood per rectum) 01/16/2021 Lumbar radiculopathy 09/10/2020 Closed nondisplaced fracture of base of fourth metacarpal bone of left hand 02/21/2019 Displaced fracture of base of fifth metacarpal bone of left hand 02/21/2019 Nausea & vomiting 02/14/2018 Nausea and vomiting 02/14/2018 Allergies Allergen Reactions Codeine Nausea And Vomiting and Unknown Other reaction(s): GI Upset, spinning adn vomiting Nitrofurantoin Hives and Other Prednisone Other reaction(s): nevous unable to sleep, Other, Unknown Sulfa Antibiotics Rash, Swelling and Other Other reaction(s): swelling of the throat Other reaction(s): swelling of the throat Oxycodone Nausea And Vomiting Promethazine Other Other reaction(s): makes me act drunk Sulfasalazine Rash Family History Adopted: Yes Past Medical History: Diagnosis Date Cholecystitis, chronic Chronic back pain Chronic kidney disease Closed nondisplaced fracture of base of fourth metacarpal bone of left hand 02/21/2019 Displaced fracture of base of fifth metacarpal bone of left hand 02/21/2019 Displaced fracture of base of fourth metacarpal bone of left hand 02/21/2019 GERD (gastroesophageal reflux disease) Hyperlipidemia Hypertension Osteoarthritis Social History Socioeconomic History Marital status: Spouse name: Not on file Number of children: Not on file Years of education: Not on file Highest education level: Not on file Occupational History Not on file Tobacco Use Smoking status: Never Smokeless tobacco: Never Substance and Sexual Activity Alcohol use: No Drug use: No Sexual activity: Not on file Other Topics Concern Not on file Social History Narrative Not on file Social Determinants of Health Financial Resource Strain: Not on file Food Insecurity: Not on file Transportation Needs: Not on file Physical Activity: Not on file Stress: Not on file Social Connections: Not on file Intimate Partner Violence: Not on file Housing Stability: Not on file Past Surgical History: Procedure Laterality Date BACK SURGERY 2013 and 2017 L3-4 fusion CHOLECYSTECTOMY Current Outpatient Medications Medication Sig Dispense Refill acetaminophen (Tylenol) 500 MG tablet every 4 hours. amLODIPine (Norvasc) 5 MG tablet Take 1 tablet by mouth daily. atorvastatin (Lipitor) 10 MG tablet Take 1 tablet by mouth daily. cholecalciferol (Vitamin D-3) 50 MCG (1999 UT) capsule Take 1 capsule by mouth daily. dicyclomine (Bentyl) 10 MG capsule Take 1 tablet by mouth in the morning and 1 tablet in the evening. gabapentin (Neurontin) 300 MG capsule Take 300 mg by mouth 2 times daily. lisinopril 20 MG tablet Take 1 tablet by mouth daily. Multiple Vitamin (Multi Vitamin) tablet Take 1 tablet by mouth daily. omeprazole (PriLOSEC) [address] capsule Take 1 capsule by mouth daily. No current facility-administered medications for this visit. Review of Systems Musculoskeletal: Positive for back pain. OBJECTIVE Vitals: 10/23/23 1448 BP: 136/81 Weight: 166 lb (75.3 kg) Height: 5' 5 (1.651 m) Physical Exam Constitutional: General: She is not in acute distress. Appearance: She is well-developed. She is not diaphoretic. Eyes: Conjunctiva/sclera: Right eye: Right conjunctiva is not injected. Left eye: Left conjunctiva is not injected. Pulmonary: Effort: Pulmonary effort is normal. No respiratory distress. Abdominal: General: There is no distension. Skin: General: Skin is warm. Findings: No bruising, erythema or lesion. Neurological: Mental Status: She is alert. Gait: Gait normal. Psychiatric: Mood and Affect: Mood and affect normal. Speech: Speech normal. DETAILED MSK/NEURO: Lumbar Spine/Lower Extremity Inspection: No previous surgical scars noted within the thoracolumbar region. Palpation: Midline Paraspinal - Right Paraspinal - Left Thoracic w/o pain w/o pain w/o pain Lumbar w/o pain W/o pain + pain Sacral w/o pain W/o pain + pain Range of motion: Flexion Extension Rotation Lateral Bend Lumbar Full - w/o pain Full - w/o pain Full - w/ pain to the left Full - w/ pain to the left Lower Extremity Motor: HF KE KF PF DF EHL Right 5 5 5 5 5 5 Left 5 5 5 5 5 5 Lower extremity sensation to light touch: L2 L3 L4 L5 S1 Right Intact Intact Intact Intact Intact Left Intact Intact Intact Intact Intact Straight leg raise: Right Negative Left Negative Sacroiliac exam: SIJ TTP Left + IMAGING / OTHER STUDIES: 08/08/19 MRI Lumbar Spine Five lumbar type vertebra are assumed for purposes of numbering on this examination. Postsurgical changes from the L3-L5 levels with new bilateral pedicle adis and screw fixation. No significant fluid collection surrounding the hardware.. No abnormal intrathecal postcontrast enhancement or clumping of nerve roots. The pedicles of the spinal canal superior to this are shortened resulting in relative congenital central canal stenosis with superimposed degenerative change. The lumbar spine is in normal overall alignment without evidence of spondylolisthesis. The conus terminates at a normal L1 level. No abnormal signal is appreciated within the distal cord. T12-L1: No disc bulge or disc protrusion. No central spinal canal stenosis. No neural foraminal narrowing. L1-L2: Mild facet arthropathy and ligamentum flavum enfolding. 3 mm right neural foraminal disc protrusion, abutting the exiting nerve root. Moderate right neural foraminal narrowing. Mild left neural foraminal narrowing. No additional disc bulge or disc protrusion. No superimposed central spinal canal stenosis. L2-L3: 3 mm circumferential broad-based disc bulge. Bilateral facet arthropathy contributes to moderate bilateral neural foraminal narrowing, right greater than left. No superimposed central canal stenosis. L3-L4: Intervertebral disc space narrowing with facet arthropathy. Tiny disc marginal endplate osteophytosis. The central canal is patent. No evidence of neural foraminal narrowing. L4-L5: Bilateral facet arthropathy. 3 mm circumferential broad-based disc bulge, extending into the neural foramina where it abuts the exiting nerve roots and contributes to moderate bilateral neural foraminal narrowing. There appears to be extrusion of disc contents within the left neural foramen (image 11 series 2). No superimposed central canal narrowing. L5-S1: Advanced bilateral facet arthropathy. No significant disc bulge or protrusion. The central canal is patent. No significant bilateral neural foraminal narrowing. Impression: 1.Multilevel degenerative changes as detailed above. Postsurgical changes from L3 to L5 with bilateral pedicle adis and screw fixation. 2.At L1-L2 there is moderate right and mild left neural foraminal narrowing. Overall this level is similar to the prior exam. 3.At L2-L3 there is moderate bilateral neural foraminal narrowing, right greater than left. Overall this level is similar to the prior exam. 4.At L4-L5 there is a broad-based disc bulge appears to abut the exiting nerve roots and contributes to moderate bilateral neural foraminal narrowing. There is new extrusion of disc contents within the left lateral foramen. LABS: ASSESSMENT 1. Spondylosis without myelopathy or radiculopathy, lumbar region 2. Postlaminectomy syndrome, lumbar region 1) Low back / left hip and leg pain -- in the setting of previous lumbar (L3-4) fusion, with significant relief of her left leg neuropathic/radicular symptoms in left L4/L5 distribution following previous LEFT L4 and L5 TFESI, but no significant relief of her low back pain itself with that. MRI evidence of disc bulge at L4-5 abutting the exiting nerve roots, as well as more focal left foraminal disc extrusion at this level and some left lateral recess stenosis at this level as well. Her axial low back pain is still most consistent with LEFT lower lumbar facet arthropathy lately (less likely left SI joint pain, with only minimal relief from previous left SI joint injection)... Not currently a dequately controlled PLAN - Continue Flexeril 5 mg just PRN and Tylenol up to 3000 mg total per day PRN - Encouraged working on core back strength / extension exercises. I printed some of these off for her today as well. If she is not making much progress with these on her own, then I would recommend she try formal PT again, so we can really work on improving the strength of her back (she states she is finding herself bent over / slouched a lot lately) - If pain still not adequately controlled, could then consider LEFT L4 and L5 MBB under fluoro No follow-ups on file. documented in this [facility]10-24-2023 Nurse Note* Page Soliman RN - 08/11/2023 7:30 AM EDT Spoke to patient to provide nuclear stress test instructions. [id number]* Page Soliman RN - 08/11/2023 7:30 AM EDT Spoke to patient to provide nuclear stress test instructions. documented in this [facility]10-13-2023 History of Present illness Narrative* Ba Hull MD - 07/31/2023 9:00 AM EDT [facility] Cardiology [facility] CARDIOLOGY [address] [facility] [facility] [id number] Dept: [phone] Dept Visit type: New : 1945 Chief Complaint: Chief Complaint Patient presents with New Patient Shortness of Breath Dizziness History of Present Illness: Milena Mcghee is a 78 y.o. female who is here to establish because of dizziness and chest pain. Shehas noticed over the last few months that she has had dizzy spells. They occur randomly. They typically do not occur when she goes to get up but often occur when she is upright. She has not had franksyncope. She denies significant palpitations when these are occurring. Her other complaint is shortn ess of breath and chest pain. She gets dyspnea with exertion much more notably as of late. She goesup and down stairs and now when she goes up the stairs she is markedly short of breath. She also admits to intermittent chest tightness. This will radiate up into her neck. The last 1 was a few weeksago and lasted 30 minutes. She did not seek medical attention for this. Past Medical History: Past Medical History: Diagnosis Date Cholecystitis, chronic Chronic back pain Chronic kidney disease Closed nondisplaced fracture of base of fourth metacarpal bone of left hand 02/21/2019 Displaced fracture of base of fifth metacarpal bone of left hand 02/21/2019 Displaced fracture of base of fourth metacarpal bone of left hand 02/21/2019 GERD (gastroesophageal reflux disease) Hyperlipidemia Hypertension Osteoarthritis Past Surgical History Past Surgical History: Procedure Laterality Date BACK SURGERY 2013 and 2017 L3-4 fusion CHOLECYSTECTOMY Family History Family History Adopted: Yes Social History Social History Tobacco Use Smoking status: Never Smokeless tobacco: Never Substance Use Topics Alcohol use: No Drug use: No Allergies: Allergies Allergen Reactions Codeine Nausea And Vomiting and Unknown Other reaction(s): GI Upset, spinning adn vomiting Nitrofurantoin Hives and Other Sulfa Antibiotics Rash, Swelling and Other Other reaction(s): swelling of the throat Oxycodone Nausea And Vomiting Promethazine Other Other reaction(s): makes me act drunk Sulfasalazine Rash Medications: Current Outpatient Medications: acetaminophen (Tylenol) 500 MG tablet, every 4 hours., Disp: , Rfl: amLODIPine (Norvasc) 5 MG tablet, Take 1 tablet by mouth daily., Disp: , Rfl: atorvastatin (Lipitor) 10 MG tablet, Take 1 tablet by mouth daily., Disp: , Rfl: cholecalciferol (Vitamin D-3) 50 MCG (1999 UT) capsule, Take 1 capsule by mouth daily., Disp: , Rfl: gabapentin (Neurontin) 300 MG capsule, Take 300 mg by mouth 2 times daily., Disp: , Rfl: lisinopril 20 MG tablet, Take 1 tablet by mouth daily., Disp: , Rfl: Multiple Vitamin (Multi Vitamin) tablet, Take 1 tablet by mouth daily., Disp: , Rfl: omeprazole (PriLOSEC) [address] capsule, Take 1 capsule by mouth daily., Disp: , Rfl: dicyclomine (Bentyl) 10 MG capsule, Take 1 tablet by mouth in the morning and 1 tablet in the evening., Disp: , Rfl: Review of Systems: Review of Systems Constitutional: Positive for fatigue. Negative for activity change, chills, diaphoresis and fever. HENT: Negative for nosebleeds and trouble swallowing. Eyes: Negative for discharge and visual disturbance. Respiratory: Positive for shortness of breath (with stairs and working in the yard). Negative for apnea, cough, chest tightness and wheezing. Cardiovascular: Negative for chest pain, palpitations and leg swelling. Gastrointestinal: Negative for abdominal distention, abdominal pain, blood in stool, diarrhea, nausea and vomiting. Endocrine: Negative for cold intolerance and heat intolerance. Genitourinary: Negative for hematuria. Musculoskeletal: Negative for gait problem and myalgias. Skin: Negative for color change and rash. Neurological: Positive for light-headedness (frequently). Negative for dizziness, seizures, syncope, facial asymmetry, speech difficulty, weakness, numbness and headaches. Hematological: Does not bruise/bleed easily. Psychiatric/Behavioral: Negative for dysphoric mood. Physical Examination: Vitals: Vitals: 07/31/23 0859 BP: 120/76 BP Location: Left arm Patient Position: Sitting BP Cuff Size: Large adult Pulse: 75 Resp: 16 SpO2: 97% Weight: 166 lb 6.4 oz (75.5 kg) Height: 5' 5 (1.651 m) Body mass index is 27.69 kg/m . Physical Exam Constitutional: Appearance: Normal appearance. HENT: Head: Normocephalic and atraumatic. Nose: Nose normal. Eyes: General: No scleral icterus. Extraocular Movements: Extraocular movements intact. Pupils: Pupils are equal, round, and reactive to light. Neck: Thyroid: No thyromegaly. Vascular: No carotid bruit or JVD. Cardiovascular: Rate and Rhythm: Normal rate and regular rhythm. Pulses: Normal pulses. Heart sounds: No murmur heard. No gallop. Pulmonary: Effort: Pulmonary effort is normal. Breath sounds: No wheezing, rhonchi or rales. Chest: Chest wall: No tenderness. Abdominal: General: Abdomen is flat. There is no distension. Palpations: Abdomen is soft. There is no hepatomegaly, splenomegaly or mass. Musculoskeletal: General: No swelling or tenderness. Normal range of motion. Cervical back: No tenderness. Skin: General: Skin is warm. Neurological: General: No focal deficit present. Mental Status: She is alert and oriented to person, place, and time. Cranial Nerves: Cranial nerves 2-12 are intact. No cranial nerve deficit. Psychiatric: Attention and Perception: Attention normal. Mood and Affect: Mood normal. Speech: Speech normal. Behavior: Behavior normal. Laboratory Tests: Lab Results Component Value Date WBC 6.4 08/29/2022 HGB 13.4 08/29/2022 HCT 39.6 08/29/2022 MCV 96.1 08/29/2022 PLT 195 08/29/2022 Lab Results Component Value Date GLUCOSE 100 08/29/2022 CALCIUM 9.0 08/29/2022 NA 137 08/29/2022 K 3.9 08/29/2022 CO2 26 08/29/2022 CL 107 08/29/2022 BUN 16 08/29/2022 CREATININE 1.23 (H) 08/29/2022 Assessment and Plan: 1. Dizziness 2. Encounter to establish care with new doctor 3. Shortness of breath 4. Essential hypertension 5. Precordial chest pain 1. Dizziness: This was her main complaint. Her blood pressure is normal. She actually has had her blood pressure medicines decreased recently. I agree with this. We will do orthostatics. 2. Chest pain and shortness of breath: She has concerning chest pain and the fact that it radiates up into her neck and jaw area when she gets it. It occurs occasionally at rest. She has hypertensionand hyperlipidemia. I think we should do a stress test. Her EKG at baseline is abnormal so I will do a stress echo. She has low back problems but is going up and down stairs and think she could walk on a treadmill for 5 to 7 minutes. 3. Hypertension: This has improved over time. She is off meloxicam and her blood pressure improved significantly. 4. Hyperlipidemia: On therapy. documented in this [facility]08-28-2023 Miscellaneous Notes* Telephone Encounter - Rupinder Arroyo MA - 06/15/2023 12:12 PM EDT Patient is informed with her results. Rupinder Arroyo MA * Telephone Encounter - Rupinder Arroyo MA - 06/15/2023 12:11 PM EDT ----- Message from Tram Sampson MD sent at 06/15/2023 12:03 PM EDT ----- Pap test normal; repeat in 1 year. Tram Sampson MD [facility] History of Present illness Narrative* Tram Sampson MD - 06/10/2023 9:30 AM EDT SUBJECTIVE Milena Mcghee is a 77 year old woman who presents for her annual exam. Last pap- 05/31/21. Last mammo- 06/13/22. Last dexascan-01/06/18. No LMP recorded (lmp unknown). Patient is postmenopausal. Denies vaginal itching, burning, discharge. Discussed health maintenance, including regular aerobic exercise, low sugar diet, and periodic exams. C/o soft stools. HISTORIES FAMILY HISTORY Adopted: Yes Problem Relation Age of Onset other (adopted) Other PAST MEDICAL HISTORY Diagnosis Date Atrophic vaginitis Back pain, chronic GERD (gastroesophageal reflux disease) HTN (hypertension) IBS (irritable bowel syndrome) Spinal stenosis, lumbar region, without neurogenic claudication Stage 3 chronic kidney disease (HCC) PAST SURGICAL HISTORY Procedure Laterality Date BACK SURGERY HX 05/12/2014 CHOLECYSTECTOMY 11/30/2017 COLONOSCOPY [address] Briones COLONOSCOPY GEN ANES 01/06/2021 EGD W/O BRSH SPEC VARICIES INJ 01/06/2021 Social History Tobacco Use Smoking status: Never Smokeless tobacco: Never Vaping Use Vaping Use: Never used Substance Use Topics Alcohol use: Yes Comment: rarely Drug use: Never ACTIVE PROBLEM LIST Chest Pain Epigastric Pain Essential (Primary) Hypertension Malaise and Fatigue Hyperlipidemia Pain in Unspecified Hip Shoulder Pain ALLERGIES Allergen Reactions Codeine GI Upset, Unknown Prednisone Unknown Seasonal Allergies Vomiting, Rash Sulfa (Sulfonamide * Swelling Nitrofurantoin Hives Promethazine Unknown Sulfasalazine Rash Current Outpatient Medications Medication Sig dicyclomine (BENTYL) 10 mg capsule Take 1 tablet by mouth twice daily. gabapentin (NEURONTIN) 300 mg capsule 1 capsule. omeprazole (PRILOSEC) 20 mg capsule Cholecalciferol, Vitamin D3, 50 mcg (2,000 unit) cap Take by mouth. acetaminophen (TYLENOL) 500 mg tablet Take 1,000 mg by mouth. amLODIPine (NORVASC) 5 mg tablet atorvastatin (LIPITOR) 10 mg tablet Take 20 mg by mouth once daily. MULTIVITAMIN ORAL Take by mouth. No current facility-administered medications for this visit. 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 HEENT: Within normal limits NECK: Supple, no thyromegaly BREASTS: No masses, no nipple discharge HEART: Regular rate and rhythm without murmur, rub, or gallop LUNGS: Clear bilaterally to auscultation ABDOMEN: No masses, non tender, no hernias, no hepatosplenomegaly PELVIC: EGBUS: No lesions, normal appearance VAGINA: No discharge, no blood, no lesions CERVIX: No lesions, non tender UTERUS: Anteverted, normal size, non tender ADNEXA: Non tender, no masses RECTOVAGINAL: Neg for heme or mass (FIT) EXTREMITIES: No edema, no calf tenderness NEUROLOGICAL: Grossly intact ASSESSMENT/PLAN: 1. Gynecologic exam normal - ICD9: V72.31, ICD10: Z01.419 (primary diagnosis) - Completed pelvic and breast exam - Encouraged monthly BSE - Follow up for annual exam in one year. - PAP REFLEX HPV MRNA WHEN ASCUS - [facility] SCREENING [facility] 2. Cervical cancer screening - ICD9: V76.2, ICD10: Z12.4 - PAP REFLEX HPV MRNA WHEN ASCUS 3. Breast cancer screening by mammogram - ICD9: V76.12, ICD10: Z12.31 - [facility] SCREENING [facility] 4. Screening for osteoporosis - ICD9: V82.81, ICD10: Z13.820 - DXA-AXIAL SKELETON 5. Menopause - ICD9: 627.2, ICD10: Z78.0 - DXA-AXIAL SKELETON MD Rupinder Harry MA No follow-ups on file. [facility] NoteHNO ID: [id number] Author: Tram Sampson MD Service: ? Author Type: Physician Type: Progress Notes Filed: 06/09/2022 11:48 AM Note Text: SUBJECTIVE Milena Mcghee is a 76 year old woman who presents for her annual exam: Last pap 06/08, Mammo 06/07, Bone Density 01/03, No LMP recorded (lmp unknown). Patient is postmenopausal.. some fecal incontinence and mushy stools. Medications, Allergies, Surgeries, Family History updated and smoking status updated. Discussed health maintenance, including regular aerobic exercise, low fat diet, and periodic exams. No pap this year. Her triglycerides were elelvated. HISTORIES FAMILY HISTORY Adopted: Yes Problem Relation Age of Onset other (adopted) Other PAST MEDICAL HISTORY Diagnosis Date Atrophic vaginitis Back pain, chronic GERD (gastroesophageal reflux disease) HTN (hypertension) IBS (irritable bowel syndrome) Spinal stenosis, lumbar region, without neurogenic claudication Stage 3 chronic kidney disease (HCC) PAST SURGICAL HISTORY Procedure Laterality Date BACK SURGERY HX 05/12/2014 CHOLECYSTECTOMY 11/30/2017 COLONOSCOPY [address] Briones COLONOSCOPY GEN ANES 01/06/2021 EGD W/O BRSH SPEC VARICIES INJ 01/06/2021 ACTIVE PROBLEM LIST Chest Pain Epigastric Pain Essential (Primary) Hypertension Malaise and Fatigue Hyperlipidemia Pain in Unspecified Hip Shoulder Pain ALLERGIES Allergen Reactions Codeine GI Upset, Unknown Gabapentin Unknown Prednisone Unknown Seasonal Allergies Vomiting, Rash Sulfa (Sulfonamide * Swelling Oxycodone GI Upset Nitrofurantoin Hives Promethazine Unknown Sulfasalazine Rash Current Outpatient Medications Medication Sig Cholecalciferol, Vitamin D3, 50 mcg (2,000 unit) cap Take by mouth. DULoxetine (CYMBALTA) 60 mg capsule acetaminophen (TYLENOL) 500 mg tablet Take 1,000 mg by mouth. amLODIPine (NORVASC) 5 mg tablet atorvastatin (LIPITOR) 10 mg tablet lisinopril (ZESTRIL, PRINIVIL) 20 mg tablet lisinopril 20 mg tablet MULTIVITAMIN ORAL Take by mouth. No current facility-administered medications for this visit. 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 HEENT: Within normal limits NECK: Supple, no thyromegaly BREASTS: No masses, no nipple discharge HEART: Regular rate and rhythm without murmur, rub, or gallop LUNGS: Clear bilaterally to auscultation ABDOMEN: No masses, non tender, no hernias, no hepatosplenomegaly PELVIC: EGBUS: No lesions, normal appearance VAGINA: No discharge, no blood, no lesions CERVIX: No speculum exam UTERUS: Anteverted, normal size, non tender ADNEXA: Non tender, no masses RECTOVAGINAL: Not examined recent scope EXTREMITIES: No edema, no calf tenderness NEUROLOGICAL: Grossly intact ASSESSMENT/PLAN: 1. Gynecologic exam normal - ICD9: V72.31, ICD10: Z01.419 (primary diagnosis) - [facility] 2. Breast cancer screening by mammogram - ICD9 V76.12, ICD10: Z12.31 - [facility]CRE[facility] 3. Screening for osteoporosis - ICD9: V82.81, ICD10: Z13.820 - DXA-AXIAL SKELETON 4. Menopause - ICD9: 627.2, ICD10: Z78.0 - DXA-AXIAL SKELETON Tram Sampson MD [facility] History of Present illness Narrative* Lvaonne Carroll RN - 02/25/2021 8:30 AM EDT bandaid intact. No bleeding noted documented in this [facility] Work Phone: Evaluation note* Diagnosis Onset Date Resolution Status Diarrhea acute Left lower quadrant abdominal pain acute Constipation acute Diarrhea acute Left lower quadrant abdominal pain acute Cystitis acute Dysuria acute Cystitis acute Dysuria acute [facility] Work Phone: Evaluation note* Diagnosis Onset Date Resolution Status Constipation acute Diarrhea acute Left lower quadrant abdominal pain acute Cystitis acute Dysuria acute Cystitis acute Dysuria acute Hyperlipidemia acute Hypertension chronic [facility] Work Phone: Evaluation note* Diagnosis Onset Date Resolution Status Cystitis acute Dysuria acute Cystitis acute Dysuria acute Hyperlipidemia acute Hypertension chronic Bilateral biceps tendonitis acute Cystitis acute [facility] Work Phone: Evaluation note* Diagnosis Onset Date Resolution Status Bilateral biceps tendonitis acute Cystitis acute Cough acute Left otitis media acute Maxillary sinusitis, acute a cute Cystitis acute Left shoulder tendinitis acu te [facility] Work Phone: Evaluation note* Diagnosis Other enthesopathies, not elsewhere classified- Primary Other enthesopathies, not elsewhere classified [facility] Diagnosis Onset Date Resolution Status Left shoulder pain acute Left shoulder tendinitis acu te Hyperlipidemia LDL goal <130 acute Low back pain radiating to left leg acute Hypertension chronic Dizziness acute Fatigue acute Joint pain acute Multiple joint pain acute Osteoarthritis acute [facility] Work Phone: Evaluation note* Diagnosis Onset Date Resolution Status Left shoulder pain acute Left shoulder tendinitis acu te Hyperlipidemia LDL goal <130 acute Low back pain radiating to left leg acute Hypertension chronic Dizziness acute Fatigue acute Joint pain acute Multiple joint pain acute Osteoarthritis acute Chronic kidney disease, stage 3b acute Dizziness acute Fatigue acute Maxillary sinusitis acute [facility] Work Phone: Evaluation note* Diagnosis Onset Date Resolution Status Hyperlipidemia LDL goal <130 acute Low back pain radiating to left leg acute Hypertension chronic Dizziness acute Fatigue acute Joint pain acute Multiple joint pain acute Osteoarthritis acute Chronic kidney disease, stage 3b acute Dizziness acute Fatigue acute Maxillary sinusitis acute Chronic kidney disease, stage 3b acute Vitamin D deficiency, unspecified acute [facility] Work Phone: Evaluation note* Diagnosis Onset Date Resolution Status Dizziness acute Fatigue acute Joint pain acute Multiple joint pain acute Osteoarthritis acute Chronic kidney disease, stage 3b acute Dizziness acute Fatigue acute Maxillary sinusitis acute Chronic kidney disease, stage 3b acute Vitamin D deficiency, unspecified acute Dizziness acute Fatigue acute Left lower quadrant abdominal pain acute [facility] Work Phone: Evaluation note* Diagnosis Abnormal liver function tests Abnormal levels of other serum enzymes [facility]* Diagnosis Gynecologic exam normal- Primary Cervical cancer screening Screening for malignant neoplasm of the cervix Breast cancer screening by mammogram Screening for osteoporosis Special screening for osteoporosis Menopause Symptomatic menopausal or female climacteric states [facility] Diagnosis Dizziness- Primary Dizziness and giddiness Encounter to establish care with new doctor Shortness of breath Essential hypertension Unspecified essential hypertension Precordial chest pain Precordial pain [facility] Diagnosis Dizziness Dizziness and giddiness documented in this encounter [facility]* Diagnosis Shortness of breath Precordial chest pain Precordial pain documented in this encounter [facility]* Diagnosis Abnormal liver function tests- Primary Abnormal levels of other serum enzymes Abnormal liver function tests Abnormal levels of other serum enzymes documented in this [facility]* Diagnosis Abnormal levels of other serum enzymes- Primary documented in this encounter [facility]* Diagnosis Onset Date Resolution Status Left otitis media acute Postauricular adenopathy acu te Cystitis acute Low back pain radiating to left leg acute Lower back pain acute [facility] Work Phone: Evaluation note* Diagnosis Onset Date Resolution Status Left otitis media acute Postauricular adenopathy acu te Cystitis acute Low back pain radiating to left leg acute Lower back pain acute Cystitis acute Dysuria acute [facility] Work Phone: Evaluation note* Diagnosis Spondylosis without myelopathy or radiculopathy, lumbar region- Primary Postlaminectomy syndrome, lumbar region [facility]* Diagnosis Onset Date Resolution Status Cystitis acute Dysuria acute Fatigue acute Headache disorder acute Hyperlipidemia LDL goal <130 acute Hypertension chronic [facility] Work Phone: Evaluation note* Diagnosis Encounter for screening mammogram for malignant neoplasm of breast [facility]* Diagnosis Encounter for screening mammogram for malignant neoplasm of breast- Primary Encounter for screening mammogram for malignant neoplasm of breast [facility]* Diagnosis Other enthesopathies, not elsewhere classified documented in this encounter [facility] note* Diagnosis Chronic kidney disease, stage 3b (HCC)- Primary [facility]* Diagnosis Age-related nuclear cataract of right eye- Primary [facility]* Diagnosis Age-related nuclear cataract, left- Primary [facility] Diagnosis Lumbar facet arthropathy- Primary Spondylosis of unspecified site without mention of myelopathy [facility]* Diagnosis Lumbar back pain Lumbago [facility]* Diagnosis Chronic bilateral low back pain without sciatica- Primary Lumbar facet arthropathy Spondylosis of unspecified site without mention of myelopathy Postlaminectomy syndrome, lumbar region [facility]* Diagnosis Lumbar facet arthropathy- Primary Spondylosis of unspecified site without mention of myelopathy documented [facility] Discharge instructions* Instructions* Chantell Cruz MD - 02/25/2021 - Resume normal activity as tolerated - Resume normal diet as tolerated - If injection site is sore, can ice for pain relief - No tubs, baths, pools for 24 hours (showers are okay). - If you take a blood thinner, resume taking this per Dr Cruz's instructions (usually resume 24 hrs after your procedure) - Call Dr Cruz's office (or go to ER after hours or on weekends) if having significantly worsened back or leg pain, significant leg weakness, loss of bowel/bladder control, inability to urinate, fever, or severe positional headache (headache that is significant while upright, but immediately improved with lying flat) - Dr Cruz's office will call you this week to schedule follow-up appointment, if you do not already have one documented in this [facility] Work Phone: Reason for referral (narrative)* Diagnostic Procedure Only (Routine) - Pending Review Specialty Diagnoses / Procedures Referred By Twan warren Referred To Contact [facility] Diagnoses Gynecologic exam normal Breast cancer screening by mammogram Procedures [facility] ANN SCREENING [facility] SCREENING DIGITAL BREAST TOMOSYNTHESIS BI SCREENING MAMMOGRAPHY BI 2-VIEW BREAST INC Tram Pineda MD [id number] [id number] [facility] [id number] [place] [address] Referral ID Status Reason Start Date Expiration Date Visits Requested Visits Authorized [id number] Pending Review Auto-Generat ed Referral 06/10/2023 07/09/2024 1 1 [facility] for referral (narrative)No reason for referral information [facility] Work Phone: Reason for visit Narrative* Auth/Cert (Routine) Specialty Diagnoses / Procedures Referred By Twan warren Referred To Contact Diagnoses Nuclear sclerotic cataract of right eye Nuclear sclerotic cataract of right eye Procedures [place] XCAPSL CTRC RMVL INSJ IO LENS PROSTH W/O ECP Prema Garcia MD [address] [place] [address] Phone: tel: fax: Referral ID Status Reason Start Date Expiration Date Visits Re quested Visits Authorized [id number] 11/08/2024 1 1 [facility] for visit Narrative* Auth/Cert (Routine) Specialty Diagnoses / Procedures Referred By Contac t Referred To Contact Diagnoses Nuclear sclerotic cataract of left eye Nuclear sclerotic cataract of left eye Procedures [place] XCAPSL CTRC RMVL INSJ IO LENS PROSTH W/O ECP Prema Garcia MD [address] [address] Phone: tel: fax: Referral ID Status Reason Start Date Expiration Date Visits Re quested Visits Authorized [id number] 11/24/2024 1 1 [facility] for visit Narrative* Auth/Cert (Routine) Specialty Diagnoses / Procedures [facility] Referred To Contact Diagnoses Spondylosis without myelopathy or radiculopathy, lumbar region Spondylosis without myelopathy or radiculopathy, lumbar region Procedures [place] NJX DX/THER AGT PVRT FACET JT LMBR/SAC 1 LEVEL bilateral lumbar l4-l5 medial branch block Chantell Cruz MD [address] [place] [address] Phone: tel: fax: Referral ID Status Reason Start Date Expiration Date Visits Re quested Visits Authorized [id number] 01/02/2025 1 1 [facility] for visit Narrative* Auth/Cert (Routine) Specialty Diagnoses / Procedures [facility] Referred To Contact Diagnoses Spondylosis without myelopathy or radiculopathy, lumbar region Spondylosis without myelopathy or radiculopathy, lumbar region Procedures [place] NJX DX/THER AGT PVRT FACET JT LMBR/SAC 1 LEVEL bilateral lumbar l4-l5 medial branch block #2 Chantell Cruz MD [address] [place] [address] Phone: tel: fax: Referral ID Status Reason Start Date Expiration Date Visits Re quested Visits Authorized [id number] 01/27/2025 1 1 [facility] Summary Purpose Family History No Family History Records FoundNo Family History Records FoundNo Family History Records FoundNo Family History Records FoundNo Family History Records FoundNo Family History Records Found Advance Directives No Advanced Directives Records FoundDocuments on File Type Date 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 Advance Directives and Living Will Power of Software Educator Latest Code Status on File Code Status Date Activated Date Inactivated Comments Full Code 02/14/2018 5:05 AM 02/16/2018 1:12 PM Full Code 11/30/2017 5:15 PM 12/01/2017 7:25 PM Full Code 11/30/2017 10:40 AM 11/30/2017 5:07 PM Documents on File Type Date 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 ACP-Advance Directive ACP-Power of Software Educator Latest Code Status on File Code Status Date Activated Date Inactivated Comments Full Code 09/10/2020 7:19 AM Full Code 02/14/2018 5:05 AM 02/16/2018 1:12 PM Latest Code Status on File Code Status Date Activated Date Inactivated Comments Full Code 01/16/2021 8:11 AM Full Code 09/10/2020 7:19 AM 09/10/2020 11:16 AM Latest Code Status on File Code Status Date Activated Date Inactivated Comments Full Code 01/16/2021 8:11 AM 01/16/2021 11:31 AM Latest Code Status on File Code Status Date Activated Date Inactivated Comments Full Code 02/25/2021 7:14 AM Full Code 01/16/2021 8:11 AM 01/16/2021 11:31 AM Latest Code Status on File Code Status Date Activated Date Inactivated Comments Full Code 02/25/2021 7:14 AM 02/25/2021 11:27 AM Date Activated Date Inactivated Comments 11/21/2024 7:12 AM 11/21/2024 11:31 AM Date Activated Date Inactivated Comments 12/26/2024 8:16 AM 12/26/2024 11:51 AM Date Activated Date Inactivated Comments 11/21/2024 7:12 AM 11/21/2024 11:31 AM Date Activated Date Inactivated Comments 12/26/2024 8:16 AM 12/26/2024 11:51 AM Date Activated Date Inactivated Comments 11/21/2024 7:12 AM 11/21/2024 11:31 AM Date Activated Date Inactivated Comments 01/20/2025 12:43 PM 01/20/2025 4:45 PM Date Activated Date Inactivated Comments 12/26/2024 8:16 AM 12/26/2024 11:51 AM Date Activated Date Inactivated Comments 11/21/2024 7:12 AM 11/21/2024 11:31 AM Date Activated Date Inactivated Comments 01/20/2025 12:43 PM 01/20/2025 4:45 PM Date Activated Date Inactivated Comments 12/26/2024 8:16 AM 12/26/2024 11:51 AM Date Activated Date Inactivated Comments 11/21/2024 7:12 AM 11/21/2024 11:31 AM Date Activated Date Inactivated Comments 02/03/2025 8:46 AM 02/03/2025 12:31 PM Date Activated Date Inactivated Comments 01/20/2025 12:43 PM 01/20/2025 4:45 PM Date Activated Date Inactivated Comments 12/26/2024 8:16 AM 12/26/2024 11:51 AM Date Activated Date Inactivated Comments 11/21/2024 7:12 AM 11/21/2024 11:31 AM Date Activated Date Inactivated Comments 02/03/2025 8:46 AM 02/03/2025 12:31 PM Date Activated Date Inactivated Comments 01/20/2025 12:43 PM 01/20/2025 4:45 PM Date Activated Date Inactivated Comments 12/26/2024 8:16 AM 12/26/2024 11:51 AM Date Activated Date Inactivated Comments 11/21/2024 7:12 AM 11/21/2024 11:31 AM Discharge Instructions * Instructions* Chantell Cruz MD - 09/10/2020 - Resume normal activity as tolerated - Resume normal diet as tolerated - If injection site is sore, can ice for pain relief - No tubs, baths, pools for 24 hours (showers are okay). - If you take a blood thinner, resume taking this per Dr Cruz's instructions (usually resume 24 hrs after your procedure) - Call Dr Cruz's office (or go to ER after hours or on weekends) if having significantly worsened back or leg pain, significant leg weakness, loss of bowel/bladder control, inability to urinate, fever, or severe positional headache (headache that is significant while upright, but immediately improved with lying flat) - Dr Cruz's office will call you this week to schedule follow-up appointment, if you do not already have one documented in this encounter* Instructions* Josiah Hannon RN - 01/16/2021 Upper GI Endoscopy: What to expect at home ACTIVITY: DO NOT DRIVE, OPERATE MACHINERY, OR DRINK ANY ALCOHOL TODAY. Avoid making critical decisions, signing legal documents, or performing any activity that requires alertness for the rest of the day. You may be bloated or have gas pains since air was introduced into the stomach for the procedure. You may need to pass the gas throughout the day. You may experience a mild sore throat. You may use an [id number] chloraseptic spray, gargle with warm salt water, or use throat lozenges. Notify your physician if this feeling lasts more than 48 hours. Rest the remainder of the day. You may resume normal activity tomorrow. You may return to work tomorrow. DIET: You may resume a normal diet unless notified or recommended by your physician. You may be eager to eat a large meal after fasting, but it is a good idea to start with light mealsand ease into solid foods the first day. (*) If your stomach is upset, try clear liquids and bland, low-fat foods like plain toast or rice. Drink plenty of fluids for the first 24 hours (unless your physician states otherwise). MEDICATION: Resume your normal home medications unless notified or recommended by your physician. If you take blood thinners (such as Coumadin, Eliquis, Plavix, Aspirin, etc.) or anti-inflammatory medications (Advil, Motrin, Aleve, etc.), ask your physician when you may resume these medications. FOLLOW-UP APPOINTMENT: Follow up with or call your physician as needed. When to call for help: Call your doctor IMMEDIATELY or seek medical care if you experience: Severe pain or vomiting Coughing up more than a teaspoon of blood You pass a large amount of tar-like stools Your belly is swollen and firm with severe pain A fever greater than 101 degrees Redness or swelling of arm from the IV site for more than 48 hours Sudden onset of chest pain or shortness of breath If you become extremely dizzy or pass out (lose consciousness) IF YOU ARE UNABLE TO REACH YOUR PHYSICIAN GO TO NEAREST EMERGENCY DEPARTMENT Colonoscopy: What to expect at home ACTIVITY: DO NOT DRIVE, OPERATE MACHINERY, OR DRINK ANY ALCOHOL TODAY. Avoid making critical decisions, signing legal documents, or performing any activity that requires alertness for the rest of the day. You may be bloated or have gas pains since air was introduced into the colon for the procedure. Youmay need to pass the gas throughout the day. You may experience a small amount of rectal bleeding; this can be normal after your colonoscopy. Notify your physician if the bleeding is enough to saturate your clothes. Rest the remainder of the day. You may resume normal activity tomorrow. You may return to work tomorrow. DIET: You may resume a normal diet unless notified or recommended by your physician. You may be eager to eat a large meal after fasting, but it is a good idea to start with light mealsand ease into solid foods the first day. (*) If your stomach is upset, try clear liquids and bland, low-fat foods like plain toast or rice. Drink plenty of fluids for the first 24 hours (unless your physician states otherwise). MEDICATION: Resume your normal home medications unless notified or recommended by your physician. If you take blood thinners (such as Coumadin, Eliquis, Plavix, Aspirin, etc.) or anti-inflammatory medications (Advil, Motrin, Aleve, etc.), ask your physician when you may resume these medications. FOLLOW-UP APPOINTMENT: Follow up with or call your physician as needed. When to call for help: Call your doctor IMMEDIATELY or seek medical care if you experience: Severe pain or vomiting A large amount (filling the toilet) of maroon, bloody stools or tar-like stools Your belly is swollen and firm with severe pain A fever greater than 101 degrees Redness or swelling of arm from the IV site for more than 48 hours Sudden onset of chest pain or shortness of breath If you become extremely dizzy or pass out (lose consciousness) IF YOU ARE UNABLE TO REACH YOUR PHYSICIAN GO TO NEAREST EMERGENCY DEPARTMENT documented in this encounter Assessments Diagnosis Lumbar radiculopathy Thoracic or lumbosacral neuritis or radiculitis, unspecified Hospital Course * Bridget Briones MD - 01/16/2021 8:30 AM EDT Admission diagnosis-brbpr and epigastric pain Discharge diagnosis -same with gastritis and sigmoid polyp Admission [id number] Discharge [id number] Admitting physician-tuyet Condition on discharge stable documented in this encounter Chief Complaint and Reason for Visit Chief Complaint V & D very weak Bowel Issues Urinary tract infection Urinary tract infection Reason for Visit Diarrhea Left lower quadrant abdominal pain Constipation Diarrhea Left lower quadrant abdominal pain Cystitis Dysuria Cystitis Dysuria Chief Complaint Bowel Issues Urinary tract infection Urinary tract infection medication refills & labs Reason for Visit Constipation Diarrhea Left lower quadrant abdominal pain Cystitis Dysuria Cystitis Dysuria Hyperlipidemia Hypertension Chief Complaint Urinary tract infect ion Urinary tract infection medication refills & labs Urinary tract infection Reason for Visit Cystitis Dysuria Cystitis Dysuria Hyperlipidemia Hypertension Bilateral biceps tendonitis Cystitis Chief Complaint Urinary tract infect ion Sinus & cough X3 days Urinary tract infection Reason for Visit Bilateral biceps ten donitis Cystitis Cough Left otitis media Maxillary sinusitis, acute Cystitis Left shoulder tendinitis Chief Complaint Trigger injection(L) Shoulder medication refills Fatigue(EKG) Reason for Visit Left shoulder pain Left shoulder tendinitis Hyperlipidemia LDL goal <130 Low back pain radiating to left leg Hypertension Dizziness Fatigue Joint pain Multiple joint pain Osteoarthritis Chief Complaint Trigger injection(L) Shoulder medication refills Fatigue(EKG) Dizziness & light headed Chronic kidney disease, stage 3b Reason for Visit Left shoulder pain Left shoulder tendinitis Hyperlipidemia LDL goal <130 Low back pain radiating to left leg Hypertension Dizziness Fatigue Joint pain Multiple joint pain Osteoarthritis Chronic kidney disease, stage 3b Dizziness Fatigue Maxillary sinusitis Chief Complaint medication refills Fatigue(EKG) Dizziness & light headed Chronic kidney disease, stage 3b UA dipstick/Labs Reason for Visit Hyperlipidemia LDL g oal <130 Low back pain radiating to left leg Hypertension Dizziness Fatigue Joint pain Multiple joint pain Osteoarthritis Chronic kidney disease, stage 3b Dizziness Fatigue Maxillary sinusitis Chronic kidney disease, stage 3b Vitamin D deficiency, unspecified Chief Complaint Fatigue(EKG) Dizziness & light headed Chronic kidney disease, stage 3b UA dipstick/Labs Fatigue & Weak Reason for Visit Dizziness Fatigue Joint pain Multiple joint pain Osteoarthritis Chronic kidney disease, stage 3b Dizziness Fatigue Maxillary sinusitis Chronic kidney disease, stage 3b Vitamin D deficiency, unspecified Dizziness Fatigue Left lower quadrant abdominal pain Chief Complaint L) Ear pain Urinary tract infection & Medrefills Reason for Visit Left otitis media Postauricular adenopathy Cystitis Low back pain radiating to left leg Lower back pain Chief Complaint L) Ear pain Urinary tract infection & Medrefills Urinary tract infection Reason for Visit Left otitis media Postauricular adenopathy Cystitis Low back pain radiating to left leg Lower back pain Cystitis Dysuria Chief Complaint Urinary tract infect ion medication refills Reason for Visit Cystitis Dysuria Fatigue Headache disorder Hyperlipidemia LDL goal <130 Hypertension Chief Complaint Admit Date L)Foot pain September 13, 2024 4:30pm Urinary tract infection September 29, 2 024 4:50pm Urinary tract infection December 08, 2 025 7:56pm Reason for Visit Admit Date Pain of left heel September 13, 2024 4:30pm Plantar fasciitis September 13, 2024 4:30pm Cystitis September 29, 2024 4:50pm Chronic lower back pain September 29, 2 024 4:50pm Cystitis December 08, 2024 7:56pm Lower abdominal pain December 08, 2024 7:56pm Lower back pain December 08, 2024 7:56pm Chief Complaint Admit Date Urinary tract infection September 29, 2 024 4:50pm Urinary tract infection December 08, 2 025 7:56pm F/up E coli January 04, 2025 5:3 3pm cystits January 04, 2025 9:2 9pm Reason for Visit Admit Date Cystitis September 29, 2024 4:50pm Chronic lower back pain September 29, 2 024 4:50pm Cystitis December 08, 2024 7:56pm Lower abdominal pain December 08, 2024 7:56pm Lower back pain December 08, 2024 7:56pm Cystitis January 04, 2025 5:3 3pm Spinal stenosis, lumbar abby on without neurogenic claudication January 04, 2025 5:33pm Chief Complaint Admit Date Urinary tract infection December 08, 2 025 7:56pm F/up E coli January 04, 2025 5:3 3pm cystits January 04, 2025 9:2 9pm Rocephin injection January 17, 2025 4:12 pm Urinary tract infection February 28, 2025 4 :11pm Reason for Visit Admit Date Cystitis December 08, 2024 7:56pm Lower abdominal pain December 08, 2024 7:56pm Lower back pain December 08, 2024 7:56pm Cystitis January 04, 2025 5:3 3pm Spinal stenosis, lumbar abby on without neurogenic claudication January 04, 2025 5:33pm Cystitis January 17, 2025 4:12 pm Cystitis February 28, 2025 4:11p m Chronic lower back pain February 28, 2025 4 :11pm Chief Complaint Admit Date F/up E coli January 04, 2025 5:3 3pm cystits January 04, 2025 9:2 9pm Rocephin injection January 17, 2025 4:12 pm Urinary tract infection February 28, 2025 4 :11pm medication refills March 14, 2025 3:49p m labs to be drawn April 05, 2025 4:42 pm Reason for Visit Admit Date Cystitis January 04, 2025 5:3 3pm Spinal stenosis, lumbar abby on without neurogenic claudication January 04, 2025 5:33pm Cystitis January 17, 2025 4:12 pm Cystitis February 28, 2025 4:11p m Chronic lower back pain February 28, 2025 4 :11pm Hyperlipidemia LDL goal <130 March 14, 2 025 3:49pm Multiple joint pain March 14, 2025 3:49p m Hypertension March 14, 2025 3:49p m Chronic kidney disease, stage 3b April 052024 4:42pm Vitamin D deficiency, unspecified March 192024 4:42pm Reason for Referral Specialty Diagnoses / Procedures Referred By Twan t Referred To Contact Diagnoses Shortness of breath Precordial chest pain Procedures Nuclear EXERCISE stress test with myocardial perfusion Ba Hull MD [address] [place] [address] [place] [id number] Referral ID Status Reason Start Date Expiration Date V isits Requested Visits Authorized [id number] Pending Review 07/31/2023 01/27/2024 1 1 Specialty Diagnoses / Procedures Referred By Twan t Referred To Contact Cardiology Diagnoses Dizziness Procedures Cardiac holter monitor (8- 15 days) [place] EXTERNAL ECG REC>48HR<7D REVIEW & INTERPRETATION [place] EXTERNAL ECG REC>48HR<7D RECORDING [place] EXTERNAL ECG REC>7D<15D RECORDING [place] EXTERNAL ECG REC>7D<15D REVIEW & INTERPRETATION Ba Hull MD [address] [place] [address] [address] [place] [address] Referral ID Status Reason Start Date Expiration Date V isits Requested Visits Authorized [id number] Pending Review 07/31/2023 01/27/2024 1 1 Referral ID Status Reason Start Date Expiration Date Visits Re quested Visits Authorized [id number] Closed 07/31/2023 01/27/2024 1 1 Specialty Diagnoses / Procedures Referred By Contac t Referred To Contact Nuclear Medicine Diagnoses Shortness of breath Precordial chest pain Procedures Nuclear EXERCISE stress test with myocardial perfusion Ba Hull MD [address] [place] [address] [address] [place] [address] Referral ID Status Reason Start Date Expiration Date Visits Re quested Visits Authorized [id number] Closed 07/31/2023 01/27/2024 1 1 Additional Source Comments INFORMATION SOURCE (unrecogn ized section and content) DATE CREATED AUTHOR 04/08/2018 [facility] DATE CREATED AUTHOR AUTHOR'S ORGANIZ ATION 01/18/2021 [facility] DATE CREATED AUTHOR AUTHOR'S ORGANIZ ATION 06/13/2022 [facility] DATE CREATED AUTHOR AUTHOR'S ORGANIZ ATION 06/18/2022 [facility] DATE CREATED AUTHOR AUTHOR'S ORGANIZ ATION 04/13/2025 [facility] DATE CREATED AUTHOR AUTHOR'S ORGANIZ ATION 04/15/2025 [facility] Care Teams (unrecognized sec tion and content) Pest Control Technician Relationship Specialty Start Date End Date Katarina Stevens [place] [address] PCP - General 06/18/17 Pest Control Technician Relationship Specialty Start Date End Date Katarina Stevens [address] [place] [address] PCP - General 06/18/17 Team Status: Active Member Role Status Dates Katarina Stevens FISHER QUAHOG, FISHER QUAHOG-C Primary Care Provider Active Team Status: Inactive Member Role Status Dates Katarina Stevens FISHER QUAHOG, FISHER QUAHOG-C Primary Care Pr ovider, Attending Provider, Referring Provider Active Team Status: Inactive Member Role Status Dates Katarina Stevens FISHER QUAHOG, FISHER QUAHOG-C Primary Care Provider, Attend ing Provider Active Team Status: Active Member Role Status Dates Katarina Stevens FISHER QUAHOG, FISHER QUAHOG-C Primary Care Pr ovider, Attending Provider, Referring Provider Active Pest Control Technician Relationship Specialty Start Date End Date Katarina Stevens [address] [place] [address] PCP - General 06/18/17 Pest Control Technician Relationship Specialty Start Date End Date Katarina Stevens [address] [place] [address] PCP - General 06/18/17 Pest Control Technician Relationship Specialty Start Date End Date Kennedy Stevenstim Portillo, MED SURG NURSE.SHOE CASER [address] [place], [place] [id number] PCP - General Family Medicine 02/13/18 Pest Control Technician Relationship Specialty Start Date End Date Rodney Katarina Portillo, MED SURG NURSE.SHOE CASER [address] [place], [place] [id number] PCP - General Family Medicine 02/13/18 Pest Control Technician Relationship Specialty Start Date End Date Katarina Stevens [address] [place] [address] PCP - General 06/18/17 Pest Control Technician Relationship Specialty Start Date End Date Katarina Stevens [address] [place] [address] PCP - General 06/18/17 Pest Control Technician Relationship Specialty Start Date End Date Katarina Stevens [address] [place] [address] PCP - General 06/18/17 Pest Control Technician Relationship Specialty Start Date End Date Katarina Stevens [address] [place] [address] PCP - General 06/18/17 Pest Control Technician Relationship Specialty Start Date End Date Katarina Stevens [address] [place], [place] [address] PCP - General 06/18/17 Team Status: Active Member Role Status Dates Katarina Stevens FISHER QUAHOG, FISHER QUAHOG-C Primary Care Provider, Attend ing Provider Active Pest Control Technician Relationship Specialty Start Date End Date Katarina Stevens [address] [place] [address] PCP - General 06/18/17 Pest Control Technician Relationship Specialty Start Date End Date Katarina Stevens [address] [place] [address] PCP - General 06/18/17 Pest Control Technician Relationship Specialty Start Date End Date Katarina Stevens [address] [place], [place] [address] PCP - General 06/18/17 Pest Control Technician Relationship Specialty Start Date End Date Katarina Stevens [address] [place] [address] PCP - General 06/18/17 Pest Control Technician Relationship Specialty Start Date End Date Katarina Stevens [address] [place] [address] PCP - General 06/18/17 Pest Control Technician Relationship Specialty Start Date End Date Katarina Stevens [address] [place] [address] PCP - General 06/18/17 Pest Control Technician Relationship Specialty Start Date End Date Katarina Stevens [address] [place], [place] [id number] PCP - General 06/18/17 Pest Control Technician Relationship Specialty Start Date End Date Katarina Stevens [address] [place], [place] [id number] PCP - General 06/18/17 Pest Control Technician Relationship Specialty Start Date End Date Katarina Stevens [address] [place], [place] [id number] PCP - General 06/18/17 Team Status: Inactive Member Role Status Dates Katarina Stevens FISHER QUAHOG, FISHER QUAHOG-C Primary Care Provider Active Start: September 13, 2024 End: September 13, 2024 Katarina Stevens FISHER QUAHOG, FISHER QUAHOG-C Attending Provider Active Start: September 13, 2024 End: September 13, 2024 Katarina Stevens FISHER QUAHOG, FISHER QUAHOG-C Referring Provider Active Start: September 13, 2024 End: September 13, 2024 Team Status: Inactive Member Role Status Dates Katarina Stevens FISHER QUAHOG, FISHER QUAHOG-C Primary Care Provider Active Start: September 29, 2024 End: September 29, 2024 Katarina Stevens FISHER QUAHOG, FISHER QUAHOG-C Attending Provider Active Start: September 29, 2024 End: September 29, 2024 Katarina Stevens FISHER QUAHOG, FISHER QUAHOG-C Referring Provider Active Start: September 29, 2024 End: September 29, 2024 Team Status: Inactive Member Role Status Dates Katarina Stevens FISHER QUAHOG, FISHER QUAHOG-C Primary Care Provider Active Start: September 29, 2024 End: September 29, 2024 Katarina Stevens FISHER QUAHOG, FISHER QUAHOG-C Attending Provider Active Start: September 29, 2024 End: September 29, 2024 Team Status: Inactive Member Role Status Dates Katarina Stevens FISHER QUAHOG, FISHER QUAHOG-C Primary Care Provider Active Start: December 08, 2024 End: December 08, 2024 Katarina Stevens FISHER QUAHOG, FISHER QUAHOG-C Attending Provider Active Start: December 08, 2024 End: December 08, 2024 Katarina Stevens FISHER QUAHOG, FISHER QUAHOG-C Referring Provider Active Start: December 08, 2024 End: December 08, 2024 Team Status: Inactive Member Role Status Dates Katarina Stevens FISHER QUAHOG, FISHER QUAHOG-C Primary Care Provider Active Start: January 04, 2025 End: January 04, 2025 Katarina Stevens FISHER QUAHOG, FISHER QUAHOG-C Attending Provider Active Start: January 04, 2025 End: January 04, 2025 Katarina Stevens FISHER QUAHOG, FISHER QUAHOG-C Referring Provider Active Start: January 04, 2025 End: January 04, 2025 Pest Control Technician Relationship Specialty Start Date End Date Katarina Stevens [address] [place], [place] [id number] PCP - General 06/18/17 Pest Control Technician Relationship Specialty Start Date End Date Katarina Stevens [address] [place], [place] [id number] PCP - General 06/18/17 Pest Control Technician Relationship Specialty Start Date End Date Katarina Stevens [address] [place], [place] [id number] PCP - General 06/18/17 Pest Control Technician Relationship Specialty Start Date End Date Katarina Stevens [address] [place], [place] [id number] PCP - General 06/18/17 Pest Control Technician Relationship Specialty Start Date End Date Katarina Stevens [address] [place], [place] [id number] PCP - General 06/18/17 Team Status: Inactive Member Role Status Dates Katarina Stevens FISHER QUAHOG, FISHER QUAHOG-C Primary Care Provider Active Start: January 17, 2025 End: January 17, 2025 Katarina Stevens FISHER QUAHOG, FISHER QUAHOG-C Attending Provider Active Start: January 17, 2025 End: January 17, 2025 Katarina Stevens FISHER QUAHOG, FISHER QUAHOG-C Referring Provider Active Start: January 17, 2025 End: January 17, 2025 Team Status: Inactive Member Role Status Dates Katarina Rodney FISHER QUAHOG, FISHER QUAHOG-C Primary Care Provider Active Start: February 28, 2025 End: February 28, 2025 Katarina Stevens FISHER QUAHOG, FISHER QUAHOG-C Attending Provider Active Start: February 28, 2025 End: February 28, 2025 Katarina Stevens FISHER QUAHOG, FISHER QUAHOG-C Referring Provider Active Start: February 28, 2025 End: February 28, 2025 Team Status: Inactive Member Role Status Dates Katarina Stevens FISHER QUAHOG, FISHER QUAHOG-C Primary Care Provider Active Start: March 14, 2025 End: March 14, 2025 Katarina Stevens FISHER QUAHOG, FISHER QUAHOG-C Attending Provider Active Start: March 14, 2025 End: March 14, 2025 Katarina Stevens FISHER QUAHOG, FISHER QUAHOG-C Referring Provider Active Start: March 14, 2025 End: March 14, 2025 Team Status: Inactive Member Role Status Dates Katarina Stevens FISHER QUAHOG, FISHER QUAHOG-C Primary Care Provider Active Start: April 05, 2025 End: April 05, 2025 Katarina Stevens FISHER QUAHOG, FISHER QUAHOG-C Attending Provider Active Start: April 05, 2025 End: April 05, 2025 Katarina Stevens FISHER QUAHOG, FISHER QUAHOG-C Referring Provider Active Start: April 05, 2025 End: April 05, 2025 Pest Control Technician Relationship Specialty Start Date End Date Stevens, Katarina [address] [place] [address] PCP - General 06/18/17 Goals (unrecognized section and content) Goals may be documented in a n alternate sectionGoals may be documented in an alternate sectionGoals may be documented in an alternate sectionGoals may be documented in an alternate sectionGoals may be documented in an alternate sectionGoals may be documented in an alternate sectionGoals may be documented in an alternate sectionGoals may be documented in an alternate sectionGoals may be documented in an alternate sectionGoals may be documented in an alternate sectionGoals may be documented in an alternate sectionGoals may be documented in an alternate sectionGoals may be documented in an alternate sectionGoals may be documented in an alternate sectionGoals may be documented in an alternate section Source Comments (unrecognize d section and content) In the event this informatio n is protected by the Federal Confidentiality of Alcohol and Drug Abuse Patient Records regulations: The Federal rules restrict any use of the information to criminally investigate or prosecute any alcohol or drug abuse patient.[facility] the event this information is protected by the Federal Confidentiality of Alcohol and Drug Abuse Patient Records regulations: The Federal rules restrict any use of the information to criminally investigate or prosecute any alcohol or drug abuse patient.[facility] Reason for Visit (unrecogniz ed section and content) Reason Comments Building Admin Exam Reason Comments Results Reason Comments New Patient Shortness of Breath Dizziness Specialty Diagnoses / Procedures Referred By Twan t Referred To Contact Cardiology Diagnoses Dizziness Procedures Cardiac holter monitor (8- 15 days) [place] EXTERNAL ECG REC>48HR<7D REVIEW & INTERPRETATION [place] EXTERNAL ECG REC>48HR<7D RECORDING [place] EXTERNAL ECG REC>7D<15D RECORDING [place] EXTERNAL ECG REC>7D<15D REVIEW & INTERPRETATION Ba Hull MD [address] [facility] [address] [place] [address] Referral ID Status Reason Start Date Expiration Date Visits Re quested Visits Authorized [id number] Closed 07/31/2023 01/27/2024 1 1 Specialty Diagnoses / Procedures Referred By Twan t Referred To Contact Nuclear Medicine Diagnoses Shortness of breath Precordial chest pain Procedures Nuclear EXERCISE stress test with myocardial perfusion Ba Hull MD [address] [facility] [address] [place] [id number] Referral ID Status Reason Start Date Expiration Date Visits Re quested Visits Authorized [id number] Closed 07/31/2023 01/27/2024 1 1 Reason Comments Follow-up Last seen in 2020 Lo w back pack starting up a few weeks ago after a stress test and on and off since 02/25 back pain currently Reason Comments Back Pain Reason Onset Date Comments Other 01/23/2025 Follow up proced ure Reason Comments Follow-up Pt is here for a fol low up from the second Bilateral L4-5 lumbar MBB which was done on 02/03/2025. Reason Onset Date Comments Other 03/23/2025 PT order Reason Comments Back Pain She says she did go to PT about 6 times. She says it helped with the R side, but not the L side. She's says she still is doing her exercises. FOR RECORDS PERTAINING TO PATIENTS WHO ARE OR HAVE BEEN ENROLLED IN A CHEMICAL DEPENDENCY/SUBSTANCEABUSE PROGRAM, SOME INFORMATION MAY BE OMITTED. This clinical summary was aggregated from multiple sources. Caution should be exercised in using it in the provision of clinical care. This summary normalizes information from multiple sources, and as a consequence, information in this document may materially change the coding, format and clinical context of patient data. In addition, data may be omitted in some cases. CLINICAL DECISIONS SHOULD BE BASED ON THE PRIMARY CLINICAL RECORDS. [employer] provides no warranty or guarantee of the accuracy or completeness of information in this document.
[2025-04-28 23:31] LABS: Hematocrit 38.1 % (37-47); Hemoglobin 13.0 g/dL (12.0-15.0); Immature Granulocytes Count 0.040 X10^3/uL (0.0-0.0); Mean Corp Hgb Conc 34.1 g/dL (32-36); Mean Corpuscular Volume 94.5 fL (81-99); Mean Platelet Vol. 12.2 fl (6.2-12.0); NRBC Flagged by Analyzer 0 % (0-5); Platelet Count 200 K/mm3 (150-450); RBC Distribution Width CV 12.4 % (11.6-14.6); RBC Distribution Width SD 43.0 fl (35.1-43.9); Red Blood Count 4.03 M/mm3 (4.2-5.4); White Blood Count 9.2 K/mm3 (4.4-11.0)
[2025-04-29 00:05] LABS: AST(SGOT) 20 U/L (<=31); Alanine Aminotransfer ALT/SGPT 16 U/L (<=34); Albumin, Serum 4.2 g/dL (3.4-4.8); Alkaline Phosphatase 156 U/L (35-104); Anion Gap 14 (5-15); BUN 22 mg/dL (4-19); BUN/Creat Ratio 14.4 RATIO (10-20); Calcium,Total 9.4 mg/dL (7.6-11.0); Carbon Dioxide 19.2 mmol/L (21.0-32.0); Chloride 107 mmol/L (98-108); Cholesterol 152 mg/dL (<=200); Free T3 2.4 pg/mL (2.18-3.98); Globulin 2.5 g/dL (2.2-4.2); Glucose 139 mg/dL (70-99); Low Density Lipoprotein Calc. 48 mg/dL; Potassium 3.8 mmol/L (3.3-5.1); Triglycerides 317 mg/dL; Very Low Density Lipoprotein 63 mg/dL (5-40); cholesterol:hdl ratio screen 3.75
[2025-04-29 00:20] LABS: PTHIN 76 pg/mL (11-61)
[2025-04-29 11:44] LABS: Troponin T High Sensitivity 7 ng/L (<=14)
[2025-05-01 14:08] LABS: EBV Acute VCA IgM < 36.0 U/mL (0.0-35.9); EBV-VCA IgG 218.0 U/mL (0.0-17.9)
== END | disposition home or self-care (01) ==
PROVIDERS: PCP Nurse Practitioner; Referring Provider Nurse Practitioner; Visit Provider Nurse Practitioner
DX: R42 Dizziness and giddiness (principal); N18.32 Chronic kidney disease, stage 3b; M25.50 Pain in unspecified joint; R53.82 Chronic fatigue, unspecified; R20.0 Anesthesia of skin; R06.02 Shortness of breath; R10.32 Left lower quadrant pain; K21.9 Gastro-esophageal reflux disease without esophagitis; R19.7 Diarrhea, unspecified; E78.5 Hyperlipidemia, unspecified; I12.9 Hypertensive chronic kidney disease with stage 1 through stage 4 chronic kidney disease, or unspecified chronic kidney disease
CPT/HCPCS: 80053; 80061; 83970; 84443; 84481; 84484; 85025; 86664; 86665

== ENCOUNTER → 2025-05-16 | Outpatient (CLI) | payer MEDICARE, SELFPAY | END | disposition home or self-care (01) | PROVIDERS: PCP Nurse Practitioner; Referring Provider Nurse Practitioner; Visit Provider Nurse Practitioner | DX: R35.0 Frequency of micturition (principal); N30.90 Cystitis, unspecified without hematuria | CPT/HCPCS: 87077; 87086; 87088; 87186 ==

== ENCOUNTER → 2025-09-26 | Outpatient (CLI) | payer MEDICARE, SELFPAY ==
--- OUTSIDE RECORDS SUMMARY | 2025-09-26 21:52 | XMS RPT_ITS | CCD ---
Author Organization [facility] CliniSynm Care Team Providers Care Journeyman Plumber Name Role Phone Cristal Ochoa Y Unavailable Unavailable Rosi MIRAMONTES, Myrna River Unavailable Unavailable TAYLOR VINCENT Unavailable Unavailabl SHRUTHI Hendrix Unavailable Unavailable SHRUTHI GODINEZ Unavailable Unavailable Cristal Ochoa Unavailable Unavailable FE Bernal, Mildred Li Unavailable Unavailabl e Rodney, Katarina Primary Care Provider Stevens, Katarina Primary Care Provider Stevens, Katarina Primary Care Provider Stevens, Katarina Primary Care Provider Stevens, Katarina Primary Care Provider Stevens, Katarina Primary Care Provider Stevens BURGLAR ALARM INSPECTOR.Katarina LUGO Primary Care Provide r Stevens CONSTRUCTION OR LEAK GANG LABORER-C, Katarina Primary Care Provider Stevens CONSTRUCTION OR LEAK GANG LABORER-C, Katarina Attending Provider Stevens CONSTRUCTION OR LEAK GANG LABORER-C, Katarina Referring Provider Stevens CONSTRUCTION OR LEAK GANG LABORER-C, Katarina Primary Care Provider Stevens CONSTRUCTION OR LEAK GANG LABORER-C, Katarina Attending Provider Stevens CONSTRUCTION OR LEAK GANG LABORER-C, Katarina Referring Provider Stevens CONSTRUCTION OR LEAK GANG LABORER-C, Katarina Primary Care Provider Stevens CONSTRUCTION OR LEAK GANG LABORER-C, Katarina Attending Provider Stevens CONSTRUCTION OR LEAK GANG LABORER-C, Katarina Referring Provider Stevens CONSTRUCTION OR LEAK GANG LABORER-C, Katarina Primary Care Provider Stevens CONSTRUCTION OR LEAK GANG LABORER-C, Katarina Attending Provider Stevens CONSTRUCTION OR LEAK GANG LABORER-C, Katarina Referring Provider Stevens CONSTRUCTION OR LEAK GANG LABORER-C, Katarina Primary Care Provider Stevens CONSTRUCTION OR LEAK GANG LABORER-C, Katarina Attending Provider Stevens CONSTRUCTION OR LEAK GANG LABORER-C, Katarina Referring Provider Stevens CONSTRUCTION OR LEAK GANG LABORER-C, Katarina Primary Care Provider Stevens CONSTRUCTION OR LEAK GANG LABORER-C, Katarina Attending Provider Stevens CONSTRUCTION OR LEAK GANG LABORER-C, Katarina Referring Provider Stevens CONSTRUCTION OR LEAK GANG LABORER, Katarina Referring Unavailable Stevens CONSTRUCTION OR LEAK GANG LABORER, Katarina Primary Care Unavailable Stevens CONSTRUCTION OR LEAK GANG LABORER, Katarina Attending Unavailable Stevens CONSTRUCTION OR LEAK GANG LABORER, Katarina Primary Care Unavailable Stevens CONSTRUCTION OR LEAK GANG LABORER, Katarina Attending Unavailable Stevens CONSTRUCTION OR LEAK GANG LABORER, Katarina Referring Unavailable Stevens CONSTRUCTION OR LEAK GANG LABORER, Katarina Attending Unavailable Stevens CONSTRUCTION OR LEAK GANG LABORER, Katarina Referring Unavailable Stevens CONSTRUCTION OR LEAK GANG LABORER, Katarina Primary Care Unavailable Stevens CONSTRUCTION OR LEAK GANG LABORER, Katarina Attending Unavailable Stevens CONSTRUCTION OR LEAK GANG LABORER, Katarina Primary Care Unavailable Stevens CONSTRUCTION OR LEAK GANG LABORER, Katarina Attending Unavailable Stevens CONSTRUCTION OR LEAK GANG LABORER, Katarina Referring Unavailable Stevens CONSTRUCTION OR LEAK GANG LABORER, Katarina Primary Care Unavailable Stevens CONSTRUCTION OR LEAK GANG LABORER, Katarina Attending Unavailable Stevens CONSTRUCTION OR LEAK GANG LABORER, Katarina Referring Unavailable Stevens CONSTRUCTION OR LEAK GANG LABORER, Katarina Primary Care Unavailable Stevens CONSTRUCTION OR LEAK GANG LABORER, Katarina Referring Unavailable Stevens CONSTRUCTION OR LEAK GANG LABORER, Katarina Attending Unavailable Stevens CONSTRUCTION OR LEAK GANG LABORER, Katarina Primary Care Unavailable Stevens CONSTRUCTION OR LEAK GANG LABORER, Katarina Referring Unavailable Stevens CONSTRUCTION OR LEAK GANG LABORER, Katarina Primary Care Unavailable Stevens CONSTRUCTION OR LEAK GANG LABORER, Katarina Attending Unavailable Stevens BURGLAR ALARM INSPECTOR.FASHION CONSULTANT SELLING, Katarina L Primary Care Provide r Stevens, Katarina Primary Care Provider [phone] STEVENS, KATARINA Primary Care Unavailable PREMA GARCIA Attending Unavailable PREMA GARCIA Admitting Unavailable STEVENS, KATARINA Primary Care Unavailable PREMA GARCIA Attending Unavailable PREMA GARCIA Admitting Unavailable ANTHONYCHANTELL Attending Unavailable STEVENS, KATARINA Primary Care Unavailable ANTHONY, CHANTELL Admitting Unavailable ANTHONY, CHANTELL Attending Unavailable ANTHONY CHANTELL Admitting Unavailable STEVENS, KATARINA Primary Care Unavailable ANTHONY, CHANTELL Attending Unavailable ANTHONY, CHANTELL Admitting Unavailable STEVENS, KATARINA Primary Care Unavailable STEVENS, KATARINA Primary Care Unavailable ANTHONY, CHANTELL Admitting Unavailable ANTHONY, CHANTELL Attending Unavailable STEVENS, KATARINA Primary Care Unavailable ANTHONY, CHANTELL Referring Unavailable STEVENS, KATARINA Primary Care Unavailable ANTHONY, CHANTELL Referring Unavailable STEVENS, KATARINA Primary Care Unavailable ANTHONY, CHANTELL Referring Unavailable STEVENS, KATARINA Primary Care Unavailable BIEDENBACH, PREMA Attending Unavailable BIEDENBACH, PREMA Admitting Unavailable STEVENS, KATARINA Primary Care Unavailable ANTHONY, CHANTELL Attending Unavailable ANTHONY, CHANTELL Attending Unavailable STEVENS, KATARINA Primary Care Unavailable ANTHONY, CHANTELL Attending Unavailable STEVENS, KATARINA Primary Care Unavailable STEVENS, KATARINA Primary Care Unavailable ANTHONY, CHANTELL Attending Unavailable STEVENS, KATARINA Primary Care Unavailable ANTHONY, CHANTELL Referring Unavailable Allergies Allergy Classification Reported Allergen(s) Allergy [...] 05-20-20 17 makes me act drunk, Unknown [employer] Work Phone: (20 sources) nitrofurantoin; Translations: [NITROFURANTOIN] Drug Allergy 05-09-20 14 Hives, Other [facility] Repository (20 sources) promethazine; Translations: [PROMETHAZINE] Drug Allergy 03-16-20 13 Unknown, Other [facility] Repository (20 sources) sulfaSALAzine; Translations: [SULFASALAZINE] Drug Allergy 11-12-19 18 Rash [facility] Repository (10 sources) Promethazine Drug Allergy 11-12-19 18 Other (See Comments) [place], [place] (10 sources) Sulfonamides (Antibiotic) Propensity to adverse reactions to drug 11-12-19 18 Rash [place], [place] (20 sources) Codeine Drug Allergy 11-12-19 20 Nausea And Vomiting, GI Upset, Unknown [place] (20 sources) oxyCODONE Drug Allergy 05-27-20 18 Nausea And Vomiting [place] (4 sources) Other Propensity to adverse reactions 05-27-20 18 Nausea And Vomiting [place] (8 sources) gabapentin Drug Allergy 03-12-20 21 fatigue and sleepiness [facility] (20 sources) predniSONE Drug Allergy 05-25-20 18 Unknown [facility] (20 sources) Sulfonamides (Antibiotic); Translations: [Sulfa (Sulfonamide Antibiotics)] Allergy to substance 05-25-20 18 Swelling [facility] (3 sources) nitrofuratine Allergy to substance 05-25-20 18 hives [facility] Work Phone: (4 sources) Seasonal allergy Allergy to substance 01-17-20 14 Vomiting, Rash [facility] (20 sources) Sulfonamides (Antibiotic) Drug Intolerance 11-12-19 18 Rash, Swelling, Other [facility] (20 sources) Seasonal allergy Environmental allergy 01-17-20 14 Rash, Nausea And Vomiting [facility] (1 source) Codeine Drug Allergy 08-08-20 22 [facility] Repository NEGATED: Highlighted row has been ruled out! (1 source) Other Propensity to adverse reactions 05-27-20 18 Nausea And Vomiting [facility] Work Phone: Medications Current Medications Medication Drug Class(es) Dates Sig (Normalized) Sig (Original) acetaminophen 500 mg oral tablet (20 sources) acetaminophen (T ylenol) 500 MG tablet every 8 hours as needed. Active acetaminophen (T YLENOL) 500 mg tablet Take 1,000 mg by mouth. Active acetaminophen (T ylenol) 500 MG tablet every 4 hours. Active Comment on above: Take 1,000 mg by julieth th. amLODIPine 5 mg oral tablet (20 sources) Dihydropyridine Calcium Channel Mary Start: 10-09-20 End: 03-14-20 25 take 1 tablet by mouth once daily before breakfast amLODIPine (Norvasc) 5 MG tablet Take 1 tablet by mouth every morning (before breakfast). 04/28/2023 Active Start: 05-20-2017 take 1 tablet by julieth th once daily AMLODIPINE BESYLATE 5 MG TABS One tablet by mouth daily AMLODIPINE BESYLATE [id number] Brady Stephens MD atorvastatin 10 mg oral tablet (20 sources) HMG-CoA Reductase Inhibitor Start: 12-02-2017 take 2 tablets by mouth once daily atorvastatin (LIPITOR) 10 mg tablet Take 20 mg by mouth once daily. 12/02/2017 Active Start: 09-08-2017 End: 03-14-2025 take 1 tablet by mouth once daily before breakfast atorvastatin (Lipitor) 10 MG tablet Take 1 tablet by mouth every morning (before breakfast). 04/28/2023 Active Start: 05-20-2017 take 1 tablet by julieth once daily ATORVASTATIN CALCIUM 10 MG TABS One tablet by mouth daily ATORVASTATIN CALCIUM [id number] Brady Stephens MD Comment on above: Take 20 mg by mouth once daily. baclofen 10 mg oral tablet (20 sources) gamma-Aminobutyric Acid-ergic Agonist Start: 07-28-2025 End: 10-26-2025 take 1 tablet by mouth twice daily as needed for muscle spasms baclofen (Lioresal) 10 MG tablet Take 1 tablet (10 mg) by mouth 2 times daily as needed for muscle spasms. 180 tablet 07/28/2025 10/26/2025 Active Start: 03-15-2025 take 1 tablet by julieth three times daily Baclofen 5 mg tablet [...] A DAY as needed for muscle spasms 30 5 July 19, 2019 12:00am October 06, 2019 4:09pm cholecalciferol 0.05 mg oral tablet (20 sources) Vitamin D cholecalciferol (Vitamin D-3) 50 MCG (2000 UT) tablet Take by mouth daily. Active Cholecalciferol, Vitamin D3, 50 mcg (2,000 unit) cap Take by mouth. Active End: 12-30-2024 take 1 capsule by mouth once daily cholecalciferol (Vitamin D-3) 50 MCG (2000 UT) capsule Take 1 capsule by mouth daily. 12/30/2024 Discontinued Comment on above: Take by mouth. ciprofloxacin 500 mg oral tablet (20 sources) Quinolone Antimicrobial Start: 05-16-20 take 1 tablet by mouth twice daily Ciprofloxacin Hcl (Cipro) 500 mg tablet Active 500 mg PO TWICE A DAY 20 May 16, 2025 4:38pm Start: 09-28-2024 End: 03-14-2025 take 1 tablet by mouth twice daily Ciprofloxacin Hcl (Cipro) 500 mg tablet Discontinued 500 mg PO TWICE A DAY 20 February 28, 2025 4:37pm March 14, 2025 3:51pm Start: 06-29-2024 End: 08-03-2024 take 1 tablet by mouth twice daily Ciprofloxacin Hcl (Cipro) 500 mg tablet Discontinued 500 mg PO TWICE A DAY 14 June 29, 2024 12:00am August 03, 2024 3:31pm Start: 10-05-2023 End: 01-27-2024 take 1 tablet by mouth twice daily Ciprofloxacin Hcl (Cipro) 500 mg tablet Discontinued 500 mg PO TWICE A DAY 14 October 05, 2023 5:36pm January 27, 2024 3:26pm Start: 09-16-2022 End: 10-08-2022 take 1 tablet by mouth twice daily Ciprofloxacin Hcl (Cipro) 500 mg tablet Discontinued 500 mg PO TWICE A DAY 14 September 16, 2022 1:00am October 08, 2022 4:37pm Start: 06-11-2022 End: 07-25-2022 take 1 tablet by mouth twice daily Ciprofloxacin Hcl (Cipro) 500 mg tablet Discontinued 500 mg PO TWICE A DAY 14 June 11, 2022 12:00am July 25, 2022 3:42pm Start: 02-17-2022 End: 03-07-2022 take 1 tablet by mouth twice daily Ciprofloxacin Hcl (Cipro) 500 mg tablet Discontinued 500 mg PO TWICE A DAY 14 February 17, 2022 4:34pm March 07, 2022 6:54pm Start: 12-06-2021 End: 01-21-2022 take 1 tablet by mouth twice daily Ciprofloxacin Hcl 500 mg tablet Discontinued 500 mg PO TWICE A DAY 20 December 06, 2021 1:00am January 21, 2022 4:57pm Start: 08-05-2021 End: 10-31-2021 take 1 tablet by mouth twice daily Ciprofloxacin Hcl (Cipro) 500 mg tablet Discontinued 500 mg PO TWICE A DAY 14 August 05, 2021 12:00am October 31, 2021 5:11pm Start: 03-21-2021 End: 04-08-2021 take 1 tablet by mouth twice daily Ciprofloxacin Hcl (Cipro) 500 mg tablet Discontinued 500 mg PO TWICE A DAY 14 March 21, 2021 12:00am April 08, 2021 5:05pm Start: 10-05-2020 End: 01-11-2021 take 1 tablet by mouth twice daily Ciprofloxacin Hcl (Cipro) 500 mg tablet Discontinued 500 mg PO TWICE A DAY 20 November 23, 2020 1:00am January 11, 2021 5:18pm Start: 02-08-2020 End: 03-19-2020 take 1 tablet by mouth twice daily Ciprofloxacin Hcl (Cipro) 500 mg tablet Discontinued 500 mg PO TWICE A DAY 28 14 0 March 05, 2020 8:32pm March 18, 2020 12:00am March 19, 2020 12:02am Start: 07-07-2019 End: 10-06-2019 take 1 tablet by mouth twice daily Ciprofloxacin Hcl (Cipro) 500 mg tablet Discontinued 500 mg PO TWICE A DAY 14 0 July 07, 2019 12:00am October 06, 2019 4:09pm diclofenac sodium 0.01 mg/mg topical gel (2 sources) Nonsteroidal Anti-inflammatory Drug Start: 02-05-2021 diclofenac sodium (VOLTAREN) 1 % GEL Apply 4 g topically 4 times daily as needed for Pain 300 g 1 02/05/2021 Active estradiol 0.1 mg/ml vaginal cream (2 sources) Estrogen Start: 06-14-2025 estradiol (ESTRACE) 0.01 % (0.1 mg/gram) vaginal cream Indications: Vaginal atrophy Use 1 g vaginally two times a week. 42.5 g 2 06/14/2025 Active gabapentin 300 mg oral capsule (20 sources) Anti-epileptic Agent Start: 08-03-2024 take 2 capsules by mouth twice daily Gabapentin 300 mg capsule Active 600 mg PO TWICE A DAY 360 3 August 03, 2024 3:24pm Anesthesia of skin Start: 09-08-2023 take 600 mg by mouth once marilia y Gabapentin Active 600 MG PO DAILY 180 September 08, 2023 4:33pm Start: 03-24-2023 End: 08-03-2024 take 2 capsules by mouth once daily before breakfast gabapentin (Neurontin) 300 MG capsule Take 600 mg by mouth every morning (before breakfast). 03/24/2023 Active Start: 10-08-2022 End: 09-08-2023 take 1 capsule by mouth once daily Gabapentin 300 mg capsule Discontinued 300 mg PO DAILY 90 3 December 04, 2022 6:23pm September 08, 2023 4:35pm Start: 06-21-2019 End: 06-14-2025 take 1 capsule by mouth twice daily gabapentin (Neurontin) 300 MG capsule Take 300 mg by mouth 2 times daily. 03/24/2023 Active Start: 04-05-2019 End: 06-21-2019 take 1 capsule [...] Angiotensin Converting Enzyme Inhibitor Start: 3 End: take 1 tablet by mouth once daily before breakfast lisinopril 20 MG tablet Take 1 tablet by mouth every morning (before breakfast). 07/22/2023 Active Start: 05-25-2018 End: 12-04-2022 take 1 tablet by mouth once daily Lisinopril 40 mg tablet Discontinued 40 mg PO daily 90 3 February 11, 2019 5:22pm January 18, 2020 3:10pm Comment on above: lisinopril 20 mg tab let meclizine hydrochloride 12.5 mg oral tablet (19 sources) Antiemetic Start: 3 End: 4 take 1 tablet by mouth three times daily as needed for dizziness Meclizine 12.5 mg tablet Active 12.5 mg PO THREE TIMES A DAY as needed for dizziness 60 0 January 27, 2024 3:30pm Multiple Vitamin (Multi [...] ADULT PO) Take by mouth 0 Active MULTIVITAMIN ORAL (4 sources) MULTIVITAMIN ORA L Take by mouth. Active MULTIVITAMIN ORA L Take by mouth. 0 Active Comment on above: Take by mouth. Multivitamin preparation (11 sources) Start: 05-25-2018 take [...] MORNING May 25, 2018 12:00am Multivitamin tablet (6 sources) Start: 05-25-2018 Multivitamin t ablet Active 1 {tbl} PO EVERY MORNING May 25, 2018 12:00am Start: 05-25-2018 Multivitamin t ablet Active 1 {tbl} PO EVERY MORNING May 24, 2018 11:00pm omeprazole 20 mg delayed release oral capsule (20 sources) Proton Pump Inhibitor Start: 04-16-2021 End: 09-29-2024 omeprazole (PRILOSEC) 20 mg capsule 04/16/2023 Active Start: 05-17-2020 End: 09-28-2020 take 1 capsule by mouth once daily Omeprazole 20 mg capsule,delayed release(DR/EC) Discontinued 20 mg PO daily 90 2 May 17, 2020 8:11pm September 28, 2020 7:44pm Start: 11-12-2019 End: 01-18-2020 take 1 capsule by mouth once daily Omeprazole 20 mg capsule,delayed release(DR/EC) Discontinued 20 mg PO DAILY November 12, 2019 1:00am January 18, 2020 3:09pm Start: 05-20-2017 End: 06-21-2019 take 1 capsule by mouth once daily Omeprazole 20 mg capsule,delayed release(DR/EC) Discontinued 20 mg PO daily 90 January 04, 2019 6:13pm June 21, 2019 5:19pm predniSONE 20 mg oral tablet (20 sources) Start: 02-22-2024 End: 06-14-2025 take 2 tablets by mouth once daily predniSONE (Deltasone) 20 MG tablet Take 40 mg by mouth daily. 02/22/2024 Active Start: 09-08-2023 End: 10-05-2023 take 2 tablets by mouth once daily Prednisone 20 mg tablet Discontinued 40 mg PO DAILY 20 October 05, 2023 5:26pm October 05, 2023 5:38pm Start: 09-08-2023 End: 10-05-2023 take 40 mg by mouth once daily Prednisone Discontinued 40 MG PO DAILY October 05, 2023 5:26pm October 05, 2023 5:38pm Start: 06-11-2022 End: 07-25-2022 Prednisone 10 mg tablet Disc ontinued 10 mg PO DAILY June 11, 2022 12:00am July 25, 2022 3:42pm polymyalgia rheumatica take 4 tabs for 4 days : 2 tabs for 4 days; 1 tab for 4 days 1/2 tab for 2 days Start: 06-21-2019 End: 07-01-2019 take 2 tablets by mouth once daily Prednisone 20 mg tablet Discontinued 40 mg PO DAILY 20 June 21, 2019 12:00am June 30, 2019 12:00am [...] HOURS as needed for nausea and vomiting 90 0 January 27, 2024 3:32pm 1000 ml sodium chloride 9 mg/ml injection (1 source) Start: 01-16-2021 0.9 % sodium chloride infusion traMADol hydrochloride 50 mg oral tablet (20 sources) Opioid Agonist Start: 08-03-2024 End: 06-14-2025 take 1 tablet by mouth at bedtime for pain traMADol (Ultram) 50 MG tablet TAKE 1 TABLET BY MOUTH AT BEDTIME for chronic pain 08/05/2024 Active Completed/Discontinued Medications Medication Drug Class(es) Dates Sig (Normalized) Sig (Original) acetaminophen 325 mg / oxyCODONE hydrochloride 5 mg oral tablet (17 sources) Opioid Agonist Start: 07-19-2019 End: 10-06-2019 Oxycodone-Acetamino phen 5-325 mg tablet Discontinued 1 {tbl} PO Q4H 28 0 July 19, 2019 October 06, 2019 4:12pm [...] Discontinued 2.5 MG INHALATION EVERY 6 HOURS June 12, 2022 12:00am December 04, 2022 6:20pm Start: 06-12-2022 take 2.5 mg by inhal ation every six hours Albuterol Sulfate Active 2.5 MG INHALATION EVERY 6 HOURS June 11, 2022 11:00pm Start: 06-12-2022 take 2.5 mg by inhal ation every six hours Albuterol Sulfate Active 2.5 MG INHALATION EVERY 6 HOURS 75 June 12, 2022 12:00am Albuterol Sulfate 2.5 mg /3 mL (0.083 %) solution for nebulization (6 sources) Start: 06-12-2022 End: 12-04-2022 take 2.5 mg by inhalation every six hours Albuterol Sulfate 2.5 mg /3 mL (0.083 %) solution for nebulization Discontinued 2.5 mg INHALATION EVERY 6 HOURS 75 4 June 12, 2022 12:00am December 04, 2022 [...] mg / clavulanate 125 mg oral tablet (6 sources) Penicillin-class Antibacterial Start: 12-12-2024 End: 12-13-2024 Amoxicillin-Pot Clavulanate 875-125 mg tablet Discontinued 1 {tbl} PO TWICE A DAY December 12, 2024 1:00am December 13, 2024 3:24pm aspirin 81 mg delayed release oral tablet (20 sources) Nonsteroidal Anti-inflammatory Drug Start: 05-25-2018 End: 10-06-2019 take 1 tablet by mouth once daily Aspirin 81 mg tablet,delayed release (DR/EC) Discontinued 81 mg PO daily May 25, 2018 12:00am October 06, 2019 4:09pm Start: 05-13-2017 take 1 tablet by julieth th once daily ASPIRIN EC 81 MG TBEC One tablet by mouth daily ASPIRIN [id number] Myrna Aranda RN azithromycin 250 mg oral tablet (20 sources) Macrolide Antimicrobial Start: 09-24-2022 End: 09-29-2022 take 2 tablets by mouth once daily, then take 1 tablet by mouth once daily at mealtime Azithromycin 250 mg tablet Discontinued 250 mg PO daily 6 5 0 September 24, 2022 1:00am September 28, 2022 1:00am September 29, 2022 1:03am 2 po qd for 1 day then 1 po qd for 4 days with food or after eating Start: 07-25-2022 End: 07-30-2022 take 2 tablets by mouth once daily, then take 1 tablet by mouth once daily at mealtime Azithromycin 250 mg tablet Discontinued 250 mg PO daily 6 5 0 July 25, 2022 12:00am July 29, 2022 12:00am July 30, 2022 12:03am 2 po qd for 1 day then 1 po qd for 4 days with food or after eating Udstwymwiy-Ezzcqdem-Feqwfrwk ol (14 sources) Corticosteroid, beta2-Adrenergic Agonist Start: 07-25-2022 End: 10-08-2022 Alturkucbe-Aywpavac-Gsewrlrf ol (Breztri Aerosphere) 160-9-4.8 mcg/actuation HFA aerosol inhaler Discontinued 2 NMA INHALATION TWICE A DAY July 25, 2022 12:00am October 08, 2022 4:37pm Start: 07-25-2022 End: 10-08-2022 Wuaxvvmnnx-Xqaetnfd-Xlscidby ol (Breztri Aerosphere) 160-9-4.8 mcg/actuation HFA aerosol inhaler Discontinued 2 NMA INHALATION TWICE A DAY July 24, 2022 11:00pm October 08, 2022 3:37pm Start: 07-25-2022 End: 10-08-2022 Slayokzxgx-Agtxegtm-Kqiryosy ol (Breztri Aerosphere) 160-9-4.8 mcg/actuation HFA aerosol inhaler Discontinued 2 INH INHALATION TWICE A DAY July 24, 2022 11:00pm October 08, 2022 3:37pm Start: 07-25-2022 End: 10-08-2022 Jxhtdtolwe-Pyzwvexe-Osayacol ol (Breztri Aerosphere) 160-9-4.8 mcg/actuation HFA aerosol [...] CAPS One tablet by mouth daily CELECOXIB [id number] Myrna Aranda RN cephalexin 500 mg oral capsule (20 sources) Cephalosporin Antibacterial Start: 09-08-2023 End: 10-05-2023 take 1 capsule by mouth twice daily Cephalexin 500 mg capsule Discontinued 500 mg PO TWICE A DAY 14 September 08, 2023 1:00am October 05, 2023 5:27pm Start: 03-07-2022 End: 03-17-2022 take 1 capsule by mouth twice daily Cephalexin 500 mg capsule Discontinued 500 mg PO TWICE A DAY March 07, 2022 12:00am March 16, 2022 12:00am March 17, 2022 12:03am Start: 02-22-2021 End: 03-04-2021 take 1 capsule by mouth twice daily Cephalexin 500 mg capsule Discontinued 500 mg PO TWICE A DAY February 22, 2021 12:00am March 03, 2021 12:00am March 04, 2021 12:01am Start: 01-11-2021 End: 01-21-2021 take 1 capsule by mouth twice daily Cephalexin 500 mg capsule Discontinued 500 mg PO TWICE A DAY 20 10 January 11, 2021 12:00am January 20, 2021 12:00am January 21, 2021 12:02am Start: 11-14-2019 End: 11-24-2019 take 1 capsule by mouth three times daily Cephalexin 500 mg capsule Discontinued 500 mg PO THREE TIMES A DAY 30 10 November 14, 2019 1:00am November 23, 2019 1:00am November 24, 2019 1:08am Start: 12-17-2018 End: 12-27-2018 take 1 capsule by mouth twice daily Cephalexin 500 mg capsule Discontinued 500 mg PO TWICE A DAY 14 December 17, 2018 1:00am December 27, 2018 3:59pm cyclobenzaprine hydrochloride 5 mg oral tablet (20 sources) Muscle Relaxant Start: 09-08-2023 End: 01-27-2024 take 1 tablet by mouth three times daily as needed for muscle spasms Cyclobenzaprine 5 mg tablet Discontinued 5 mg PO THREE TIMES A DAY as needed for muscle spasm 60 20 September 08, 2023 1:00am January 27, 2024 3:26pm Start: 06-21-2019 End: 10-06-2019 take 1 tablet by mouth three times daily as needed for muscle spasms Cyclobenzaprine 5 mg tablet Discontinued 5 mg PO THREE TIMES A DAY as needed for muscle spasm 30 June 21, 2019 12:00am October 06, 2019 4:09pm dicyclomine hydrochloride 20 mg oral tablet (20 sources) Anticholinergic Start: 12-04-2022 End: 03-14-2025 Dicyclomine 20 mg tablet Discontinued 20 mg PO 1 to 2 times per day January 27, 2024 3:28pm March 14, 2025 3:52pm Start: 02-25-2022 take 1 tablet by julieth th twice daily dicyclomine (BENTYL) 10 mg capsule Take 1 tablet by mouth twice daily. 02/25/2022 Active Start: 01-21-2022 End: 12-04-2022 take 1 tablet by mouth three times daily Dicyclomine 20 mg tablet Discontinued 20 mg PO THREE TIMES A DAY 270 July 22, 2022 1:33pm December 04, 2022 6:21pm Comment on above: Take 1 tablet by julieth twice daily. doxycycline hyclate 100 mg oral capsule (6 sources) Tetracycline-class Drug Start: 02-22-20 End: 06-29-20 take 1 capsule by mouth twice daily Doxycycline Hyclate 100 mg capsule Discontinued 100 mg PO TWICE A DAY 20 February 22, 2024 12:00am June 29, 2024 4:55pm DULoxetine 60 mg delayed release oral capsule (20 sources) Serotonin and Norepinephrine Reuptake Inhibitor Start: 05-28-20 End: 06-10-20 take 1 capsule by mouth once daily Duloxetine 60 mg capsule,delayed release(DR/EC) Discontinued 60 mg PO DAILY 90 May 28, 2021 12:00am October 31, 2021 5:12pm Start: 05-27-2021 End: 05-28-2021 take 1 capsule by mouth once daily Duloxetine 40 mg capsule,delayed release(DR/EC) Discontinued 40 mg PO DAILY May 27, 2021 12:00am May 28, 2021 10:18am Start: 07-09-2020 End: 04-08-2021 take 1 capsule by mouth once daily Duloxetine 20 mg capsule,delayed release(DR/EC) Discontinued 20 mg PO DAILY 30 July 09, 2020 12:00am April 08, 2021 5:11pm erythromycin 0.005 mg/mg ophthalmic ointment (20 sources) Macrolide, Macrolide Antimicrobial Start: 06-13-2021 End: 11-13-2022 Erythromycin 5 mg/gram (0.5 %) ointment Discontinued 0.5 [in_us] OPHTHALMIC THREE TIMES A DAY 3.5 0 June 13, 2021 12:00am November 13, 2022 [...] [in_us] OPHTHALMIC THREE TIMES A DAY 3.5 3 August 17, 2020 12:00am September 28, 2020 7:44pm Start: 08-17-2020 End: 09-28-2020 Erythromycin Discontinued 0. 5 INCH OPHTHALMIC THREE TIMES A DAY 3.5 August 17, 2020 12:00am September 28, 2020 7:44pm estrogens, conjugated (group home) 0.625 mg/ml vaginal cream (17 sources) Estrogen Start: 12-17-2018 End: 05-17-2020 Conjugated Estrogens (Premarin) 0.625 mg/gram cream Discontinued TOPICAL 0 December 17, 2018 1:00am May 17, 2020 8:09pm flu vac qs 2017(4 yr up)CD(PF) (1 source) Start: 08-19-2021 End: 08-19-2021 inject 1 mL by intramuscular injection once flu vac qs 2017(4 yr up)CD(PF) Discontinued 0.5 ML IM ONCE 60 August 19, 2021 5:41pm August 19, 2021 8:27pm Flucelvax Quad (PF) (flu vac qs 2018(4 yr up)CD(PF)) 60 mcg (15 mcg x (1 source) Start: 07-22-2018 End: 07-22-2018 inject 15 ug by intramuscular injection once Flucelvax Quad (PF) (flu vac qs 2018(4 yr up)CD(PF)) 60 mcg (15 mcg x Discontinued 0.5 ML IM ONCE 0.5 July 22, 2018 4:36pm July 22, 2018 5:01pm fluconazole 150 mg oral tablet (20 sources) Azole Antifungal Start: 09-16-2022 End: 11-13-2022 Fluconazole 150 mg tablet Discontinued 150 mg PO Every 3 Days 2 0 September 16, 2022 1:00am November 13, 2022 6:36pm Start: 05-25-2018 End: 10-06-2019 take 1 tablet by mouth once daily Fluconazole 100 mg tablet Discontinued 100 mg PO daily 14 1 May 25, 2018 12:00am October 06, 2019 4:09pm gadobenate dimeglumine (MULTIHANCE) injection 15 mL (1 source) Start: 08-08-2019 End: 08-08-2019 gadobenate dimeglumine (MULTIHANCE) injection 15 mL hydroxychloroquine sulfate 200 mg oral tablet (17 sources) Antimalarial, Antirheumatic Agent Start: 05-27-2021 End: 10-31-2021 take 2 tablets by mouth once daily Hydroxychloroquine 200 mg tablet Discontinued 200 mg PO TWICE A DAY 180 0 May 27, 2021 12:00am October 31, 2021 [...] 2019 9:33pm levoFLOXacin 500 mg oral tablet (17 sources) Quinolone Antimicrobial Start: 11-12-2019 End: 01-18-2020 take 1 tablet by mouth once daily Levofloxacin 500 mg tablet Discontinued 500 mg PO DAILY 14 0 November 12, 2019 1:00am January 18, 2020 3:08pm lidocaine 0.05 mg/mg medicated patch (17 sources) Antiarrhythmic, Amide Local Anesthetic Start: 03-11-2021 End: 12-06-2021 Lidocaine (Lidoderm) 5 % adhesive patch,medicated Discontinued 1 NMA TOPICAL DAILY 90 90 3 March 11, 2021 12:00am December 06, 2021 [...] mouth every 12 hours as needed LORAZEPAM [id number] Brady Stephens MD meloxicam 15 mg oral tablet (20 sources) Nonsteroidal Anti-inflammatory Drug Start: 05-25-2018 End: 11-26-2020 take 1 tablet by mouth once daily Meloxicam 15 mg tablet Discontinued 15 mg PO daily 90 2 May 17, 2020 8:13pm November 26, 2020 12:58pm Start: 05-20-2017 take 1 tablet by julieth th once daily MELOXICAM 7.5 MG TABS One tablet by mouth daily MELOXICAM [id number] Brady Stephens MD methocarbamol 500 mg oral tablet (17 sources) Muscle Relaxant Start: 06-05-2020 End: 01-11-2021 take 1 tablet by mouth three times daily Methocarbamol 500 mg tablet Discontinued 500 mg PO THREE TIMES A DAY 30 1 June 05, 2020 12:00am January 11, 2021 9:37pm metroNIDAZOLE 250 mg oral tablet (20 sources) Nitroimidazole Antimicrobial Start: 06-29-2024 End: 07-09-2024 take 1 tablet by mouth three times daily Metronidazole 250 mg tablet Discontinued 250 mg PO THREE TIMES A DAY 30 10 0 June 29, 2024 12:00am July 08, 2024 12:00am July 09, 2024 12:10am Start: 04-16-2023 End: 06-10-2023 take 1 tablet by mouth three times daily Metronidazole 250 mg tablet Discontinued 250 mg PO THREE TIMES A DAY 30 10 0 April 16, 2023 12:00am April 25, 2023 12:00am April 26, 2023 12:04am Start: 12-06-2021 End: 12-16-2021 take 1 tablet by mouth three times daily Metronidazole 250 mg tablet Discontinued 250 mg PO THREE TIMES A DAY 30 10 0 December 06, 2021 1:00am December 15, 2021 1:00am December 16, 2021 1:03am Start: 11-23-2020 End: 12-03-2020 take 1 tablet by mouth three times daily Metronidazole 250 mg tablet Discontinued 250 mg PO THREE TIMES A DAY 30 10 0 November 23, 2020 1:00am December 02, 2020 1:00am December 03, 2020 1:03am Start: 10-05-2020 End: 10-15-2020 take 1 tablet by mouth three times daily Metronidazole 250 mg tablet Discontinued 250 mg PO THREE TIMES A DAY 30 10 0 October 05, 2020 1:00am October 14, 2020 1:00am October 15, 2020 1:02am Start: 03-05-2020 End: 03-19-2020 take 1 capsule by mouth three times daily Metronidazole (Flagyl) 375 mg capsule Discontinued 375 mg PO THREE TIMES A DAY 42 14 0 March 05, 2020 12:00am March 18, 2020 12:00am March 19, 2020 12:02am Comment on above: take 1 tablet by julieth th three times a day for 10 days [...] Right Eye, See admin instructions, Starting on 11/21/24 at 0712, Preprocedure, Instill one drop in operative eye every 10 minutes starting 30 min prior to procedure. phenazopyridine hydrochloride 200 mg oral tablet (7 sources) Start: 05-13-2017 End: 05-20-2017 take 1 tablet by mouth three times daily as needed PYRIDIUM 200 MG TABS One tablet by mouth three times daily as needed PHENAZOPYRIDINE HCL [id number] Myrna Aranda RN phenylephrine hydrochloride 25 mg/ml ophthalmic solution (4 sources) alpha-1 Adrenergic Agonist Start: 12-26-2024 End: 12-26-2024 1 drop, Left Eye, See admin instructions, Starting on 12/26/24 at 0816, Preprocedure, To operative eye for [...] Left Eye, See admin instructions, Starting on 12/26/24 at 0816, Preprocedure, Into the operative eye prior to administering other drops. Start: 11-21-2024 End: 11-21-2024 1 drop, Right Eye, See admin instructions, Starting on 11/21/24 at 0712, Preprocedure, Into the operative eye, BEFORE all other drops. technetium Tc-99m sestamibi (Cardiolite) radio-isotope injection 21.4 millicurie (1 source) Start: 08-11-2023 End: 08-11-2023 technetium Tc-99m sestamibi (Cardiolite) radio-isotope injection 21.4 millicurie technetium Tc-99m sestamibi (Cardiolite) radio-isotope injection 6.4 millicurie (1 source) Start: 08-11-2023 End: 08-11-2023 technetium Tc-99m sestamibi (Cardiolite) radio-isotope injection 6.4 millicurie tetracycline hydrochloride 500 mg oral capsule (6 sources) Tetracycline-class Antimicrobial Start: 12-13-2024 End: 03-14-2025 take 1 capsule by mouth every twelve hours Tetracycline 500 mg capsule Discontinued 500 mg PO Q12H 20 0 December 13, 2024 1:00am March 14, 2025 3:55pm trimethoprim 100 mg oral tablet (17 sources) Dihydrofolate Reductase Inhibitor Antibacterial Start: 05-25-2018 [...] Date Documented Da te Episodic/Chronic Administrative/social admission (2 sources) Patient encounter status; Translations: [Persons encountering health services in other specified circumstances] 07-31-2023 Episodic Cataract (20 sources) Age-related nuclear cataract of right eye; Translations: [Age-related nuclear cataract, right eye] Onset: 5 Resolved: 5 11-17-2024 Chronic Chronic kidney disease (20 sources) Chronic kidney disease stage 3; Translations: [Chronic renal insufficiency, stage III (moderate)] Onset: 5 05-18-2020 Chronic Chronic kidney disease (1 source) Chronic kidney disease; Translations: [Chronic kidney disease, stage 3b] Onset: 5 Chronic obstructive pulmonary disease and bronchiectasis (19 sources) Bronchitis; Translations: [Bronchitis, not specified as acute or chronic] Onset: 5 11-12-2019 Episodic Conditions associated with dizziness or vertigo (20 sources) Dizziness; Translations: [Dizziness and giddiness] Onset: 5 05-17-2020 Episodic Disorders of lipid metabolism (20 sources) Hyperlipidemia; Translations: [Hyperlipidemia, unspecified] Onset: 8 05-13-2017 Chronic Diverticulosis and diverticulitis (19 sources) Diverticulitis; Translations: [Diverticulitis of intestine, part unspecified, without perforation or abscess without bleeding] Onset: 5 03-05-2020 Chronic Esophageal disorders (19 sources) Gastroesophageal reflux disease; Translations: [Gastro-esophageal reflux disease without esophagitis] Onset: 5 05-17-2020 Chronic Essential hypertension (20 sources) Hypertensive disorder; Translations: [Essential (primary) hypertension] Onset: 7 05-13-2017 Chronic Genitourinary symptoms and ill-defined conditions (20 sources) Dysuria; Translations: [Dysuria] Onset: 5 08-06-2021 Episodic Headache; including migraine (15 sources) Headache disorder; Translations: [Headache disorder] Onset: 5 09-24-2022 Episodic Immunizations and screening for infectious disease (19 sources) Needs influenza immunization; Translations: [Encounter for immunization] Onset: 5 08-19-2021 Episodic Inflammation; infection of eye (except that caused by tuberculosis or sexually transmitteddisease) (19 sources) Eye infection; 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, right eye] Onset: 5 06-13-2021 Chronic Lymphadenitis (9 sources) Posterior auricular lymphadenopathy; Translations: [Localized enlarged lymph nodes] 06-12-2023 Episodic Menopausal disorders (7 sources) Vaginal dryness; Translations: [Menopausal and female climacteric states] 08-04-2024 Chronic Mycoses (19 sources) Candidiasis of mouth and esophagus; Translations: [Candidal esophagitis] Onset: 5 05-25-2018 Episodic Nutritional deficiencies (20 sources) Vitamin D deficiency; Translations: [Vitamin D deficiency, unspecified] Onset: 3 05-17-2020 Chronic Osteoarthritis (19 sources) Osteoarthritis; Translations: [Unspecified osteoarthritis, unspecified site] Onset: 5 04-04-2020 Chronic Other connective tissue disease (17 sources) Foot pain; Translations: [Pain in right foot] 08-17-2020 Episodic Other connective tissue disease (17 sources) Biceps tendinitis; Translations: [Bicipital tendinitis, right shoulder] Onset: 5 06-11-2022 Episodic Other connective tissue disease (5 sources) Tendinitis of shoulder region; Translations: [Other enthesopathies, not elsewhere classified] 09-16-2022 Episodic Other connective tissue disease (3 sources) Enthesopathy; Translations: [Other enthesopathies, not elsewhere classified] Episodic Other connective tissue disease (9 sources) Tendonitis of left shoulder; Translations: [Other enthesopathies, not elsewhere classified] 09-16-2022 Episodic Other connective tissue disease (6 sources) Heel pain; Translations: [Pain in left foot] 09-14-2024 Episodic Other connective tissue disease (6 sources) Plantar fasciitis; Translations: [Plantar fascial fibromatosis] 09-14-2024 Episodic Other connective tissue disease (6 sources) Tendinitis of left elbow; Translations: [Other enthesopathies, not elsewhere classified] 02-22-2024 Episodic Other eye disorders (3 sources) Inflammatory disorder of the eye; Translations: [Other specified disorders of eye and adnexa] Episodic Other eye disorders (19 sources) Bilateral epiphora of eyes; Translations: [Unspecified epiphora, bilateral] Onset: 5 08-17-2020 Episodic Other eye disorders (7 sources) Disorder of right eye; Translations: [Other specified disorders of eye and adnexa] 06-13-2021 Episodic Other eye disorders (7 sources) Other specified disorders of eye and adnexa; Translations: [Irritation of right eye] 06-13-2021 Episodic Other gastrointestinal disorders (19 sources) Diarrhea; Translations: [Diarrhea, unspecified] Onset: 5 12-06-2021 Episodic Other gastrointestinal disorders (19 sources) Constipation; Translations: [Constipation, unspecified] Onset: 5 01-21-2022 Episodic Other liver diseases (4 sources) Enzyme level - finding; Translations: [Abnormal levels of other serum enzymes] 05-20-2023 Episodic Other lower respiratory disease (20 sources) Dyspnea; Translations: [Shortness of breath] Onset: 5 02-08-2020 Episodic Other lower respiratory disease (16 sources) Cough; Translations: [Cough] Onset: 5 07-25-2022 Episodic Other nervous system disorders (2 sources) Other chronic pain; Translations: [Other chronic pain] Onset: 5 Chronic Other nervous system disorders (19 sources) Numbness of lower limb ; Translations: [Anesthesia of skin] Onset: 5 06-21-2019 Episodic Other non-traumatic joint disorders (20 sources) Joint pain; Translations: [Pain in unspecified joint] 12-17-2018 Episodic Other non-traumatic joint disorders (19 sources) Multiple joint pain; Translations: [Pain in unspecified joint] 12-27-2018 Episodic Other non-traumatic joint disorders (19 sources) Elbow joint pain; Translations: [Pain in right elbow] Onset: 5 05-27-2021 Episodic Other non-traumatic joint disorders (11 sources) Pain in left shoulder; Translations: [Left shoulder pain] 11-13-2022 Episodic Other screening for suspected conditions (not mental disorders or infectious disease) (16 sources) Liver function tests abnormal; Translations: [Other specified abnormal findings of blood chemistry] 05-20-2023 Episodic Other skin disorders (19 sources) Sebaceous cyst of skin; Translations: [Sebaceous cyst] Onset: 5 10-31-2021 Episodic Other upper respiratory infections (12 sources) Maxillary sinusitis; Translations: [Chronic maxillary sinusitis] 02-25-2023 Chronic Other upper respiratory infections (19 sources) Acute maxillary sinusitis; Translations: [Acute maxillary sinusitis, unspecified] Onset: 5 11-12-2019 Episodic Otitis media and related conditions (19 sources) Otitis media; Translations: [Otitis media, unspecified, left ear] Onset: 5 01-11-2021 Episodic Residual codes; unclassified (3 sources) Menopause present; Translations: [Asymptomatic menopausal state] 06-10-2023 Episodic Rheumatoid arthritis and related disease (1 source) Arthropathy of lumbar facet joint 02-10-2025 Chronic Spondylosis; intervertebral disc disorders; other back problems (20 sources) Inflammation of sacroiliac joint; Translations: [Sacroiliitis, not elsewhere classified] Onset: 1 02-25-2021 Chronic Unclassified (13 sources) Autogenerated Problem Onset: 5 05-19-2025 Unclassified (1 source) Low back pain, unspecified; [...] anus and rectum] Onset: 1 01-16-2021 Episodic Malaise and fatigue (20 sources) Malaise and fatigue; Translations: [Fatigue] Onset: 7 05-13-2017 Episodic Nausea and vomiting (20 sources) Nausea with vomiting, unspecified; Translations: [Nausea and vomiting] Onset: 8 02-14-2018 Episodic Nonspecific chest pain (9 sources) Chest pain; Translations: [Chest pain, unspecified] Onset: 7 05-20-2017 Episodic Other connective tissue disease (1 source) Cramp and spasm; Translations: [Cramp and spasm] Onset: 7 Episodic Other non-traumatic joint disorders (10 sources) Shoulder pain; Translations: [Pain in left shoulder] Onset: 7 05-13-2017 Episodic Other non-traumatic joint disorders (4 sources) Hip pain; Translations: [Pain in unspecified hip] Onset: 7 07-27-2018 Episodic Spondylosis; intervertebral disc disorders; other back problems (20 sources) Fusion of spine, site unspecified; Translations: [Lumbar radiculopathy] Onset: 8 09-10-2020 Episodic Unclassified (15 sources) fell off ladder 05-19-2022 Comment on above: 2013 did not gett be tter with PT Unclassified (1 source) Patient encounter status 06-14-2025 Unclassified (1 source) Low back pain, unspecified; Translations: [Low back pain, unspecified] Onset: 5 Results Test Name Value Interpretation Reference Range Facility Office Visiton 07-28-2025 Follow-up visit [id number] Milena Mcghee 1945 F Date Provider Department Center 07/28/2025 [id number] CRUZ [facility] PN None Family History Adopted: Yes Level of Service:16269 [place] OFFICE/OUTPATIENT ESTABLISHED MOD MDM 30 MIN Reason for Visit and Comments: Follow-up [897882] - Pt is here for a follow up from the Left Lumbar RFA which was done on 06/23/2025, pt states she has 95% relief from that pain. She has noticed pain higher in her back since the procedure. This pain becomes severe when she is standing/movement for 30-40mins. [facility] Progress Noteon 07-28-2025 Progress Note [facility] [address] [facility] [address] Dept: [phone] Dept Chief Complaint Patient presents with Follow-up Pt is here for a follow up from the Left Lumbar RFA which was done on 06/23/2025, pt states she has 95% relief from that pain. She has noticed pain higher in her back since the procedure. This pain becomes severe when she is standing/movement for 30-40mins. SUBJECTIVE HPI: Milena Mcghee is a 80 y.o. year old here today for follow-up of chronic low back pain. Since last visit, she has received about 95% ongoing relief of her pain after her recent LEFT L4 and L5 RFA on 06/23/25. She is having some pain a bit more laterally now in her left low back. LOCATION OF PAIN: Left low back, more toward the flank around QL muscle RADIATES: denies into the legs CONSTANT/INTERMITTENT: Constant NUMBNESS/TINGLING? denies WEAKNESS? denies URINARY/FECAL INCONTINENCE? No SADDLE ANESTHESIA? no INTERFERING WITH SLEEP? No CURRENT PAIN MEDS: Tylenol 1000 mg PRN (usually once or twice a day), baclofen 10 mg up to BID PRN ANY SIGNIFICANT SIDE EFFECTS FROM CURRENT PAIN MEDS? no ARE THEY PROVIDING ADEQUATE ANALGESIA? some ARE THEY PROVIDING ADEQUATE FUNCTIONAL IMPROVEMENT? some PAIN MEDS PREVIOUSLY TRIED/FAILED: Meloxicam (had helped but had to stop due to kidney function concerns), duloxetine (side effects), lidocaine patches, gabapentin OTHER CURRENT / PREVIOUS TREATMENT Physical therapy -- Last did shortly after her most recent back surgery in 2018 TENS -- No Chiropractor -- No Acupuncture -- No Prior Pain Clinic -- Dr Morrison in [place] Chronic opiates -- No Previous Pain Procedures [...] Active Problem List Diagnosis Date Noted Sacroiliitis 02/25/2021 Epigastric pain 01/16/2021 BRBPR (bright red [...] as needed. amLODIPine (Norvasc) 5 MG tablet (more content not included)... [facility] No Panel Informationon 06-23 There is no interpre tation needed for this exam. IMAGING Nursing Noteon 06-23-2025 Nursing Note Denies needs, denies pain or headache. Denies neuro deficits. Band Aid dry intact. Will DC home . Instructions completed [facility] Op Noteon 06-23-2025 Op Note OPERATIVE NOTE DATE: 06/23/25 LOCATION: [facility] PROCEDURE: Radiofrequency Ablation of the LEFT L4 and L5 Medial Branch Nerves under Fluoroscopic Guidance PERFORMED BY: Chantell Cruz MD PRE-OPERATIVE DIAGNOSIS: Lumbar Spondylosis without Radiculopathy or Myelopathy POST-OPERATIVE DIAGNOSIS: Same ANESTHESIA: Local DESCRIPTION: History and physical examination were performed and informed consent obtained. A time out with 2 active identifiers of the patient, the procedure, and the site was performed. The patient was positioned prone on the fluoroscopy table. A sterile prep with Chloraprep and drape of the area was performed and approximately 6 cc total of 1% lidocaine was used to provide local anesthesia. Fluoroscopy was used to identify the LEFT facet joint between L5-S1. A 20 g, 10 cm RF cannula was then placed under fluoroscopic guidance in the oblique view, and directed to the junction of the superior articular process with the transverse process at each level (L5 and sacral ala, for the corresponding L4 and L5 medial branch nerves, respectively). After os was contacted at each junction, aspiration of needle was negative. Next, the RF probe was inserted into the cannula. Motor stimulation to 2V was then tested at each location and showed appropriate sensory response in the back, but no lower extremity sensation or twitching with motor testing. Then after negative aspiration, one cc of 2% Lidocaine was then used to anesthetize the medial branch nerves of the facets immediately prior to the radiofrequency ablation. A thermal radiofrequency ablation was then applied to each nerve for 120 seconds at 80 degrees Celsius. The patient reported no paresthesia, and there was no active bleeding at the needle insertion sites. The patient was placed in the supine position and observed for approximately 20 minutes prior to discharge home in stable condition with a responsible adult. There were no adverse reactions noted. Radiological Findings/Interpretation: The RF needle was seen at the appropriate site adjacent to each facet joint on AP, oblique, and lateral views. [facility] 36on 05-24-2025 36 Called patient and s he reports she had 90% relief for >6 hours s/p left L4 and L5 MBB #1. Will proceed with left L4 and L5 MBB #[address] Cruz[address] [facility] 36 Message released to patient as written. Patient's further questions if applicable: 8-9 after the procedure it was 0-1 9% Lasted until the night and when pain came back it was worst Were all questions from office addressed or relayed to the patient from encounter: Yes [facility] No Panel Informationon 05-19 There is no interpre tation needed for this exam. IMAGING Nursing Noteon 05-19-2025 Nursing Note Denies pain. Denies neuro deficits. Low back band Aid dry intact. Instructions re given to patient. Patient is self driven. [facility] Op Noteon 05-19-2025 Op Note OPERATIVE NOTE DATE: 05/19/25 LOCATION: [facility] PROCEDURE: LEFT L4 and L5 Medial Branch Nerve Blocks [...] of the area was performed and approximately 5 cc total of 1% lidocaine was used to provide local anesthesia. Fluoroscopy was used to identify the LEFT facet joints between L5-S1. A 25-gauge, 3.5 inch spinal needle was placed under fluoroscopic guidance in the oblique and lateral views, and directed to the junction of the superior articular process with the transverse process at each level (L5 and sacral ala, for the corresponding L4 and L5 medial branch nerves, respectively). After os was contacted at each junction, and aspiration was negative, approximately 0.5 cc of 2% lidocaine was injected at each junction. No paresthesias were elicited. No blood or spinal fluid was aspirated prior to injection. The patient tolerated the procedure well. No complications were noted, and the patient was discharged home in stable condition. [facility] Urine Cultureon 05-18-2025 [facility] Escherichia coli Stanley Count 11,000-25,000 Escherichia coli: REACTION Ampicillin Islt IRINEO 8 Ampicillin+Sulbac Islt IRINEO 4 S Cefepime Islt IRINEO <=0.12 S cefTRIAXone Islt IRINEO <=0.25 S Ciprofloxacin Islt IRINEO <=0.06 S B-Lactamase Extended Susc Islt NEG Gentamicin Islt IRINEO <=1 S levoFLOXacin Islt IRINEO <=0.12 S Meropenem Islt IRINEO <=0.25 S Nitrofurantoin Islt IRINEO <=16 S Pip+Tazo Islt IRINEO <=4 S TMP SMX Islt IRINEO <=20 S [facility] Comment on above: Performed By: #### L 509.1000, L501.4021, L500.4050, L100.0100, L500.4100, L501.9520, L3100.5850, L501.22564 #### [facility] [place], [place], [id number] Laboratory - Chemistry and C hemistry - challengeOrdered By: Katarina Stevens on 05-16-2025 Bilirubin Ql (U) Negative [facility] Glucose Ql (U) Negative [facility] Ketones Ql (U) Negative [facility] pH (U) 6.0 [pH] [facility] Specific gravity (U) [Rel density] 1.015 [facility] Urobilinogen (U) [Mass/Vol] 0.6875173 mg/dL [facility] Laboratory - Hematology and Cell countsOrdered By: Katarina Stevens on 05-16-2025 Hemoglobin Ql (U) Trace [facility] - Specimen inform ationOrdered By: Katarina Stevens on 05-16-2025 Clarity (U) Clear [facility] Color (U) YELLOW [facility] Laboratory - UrinalysisOrder ed By: Katarina Stevens on 05-16-2025 Nitrite Ql (U) Negative [facility] Protein Ql (U) Negative [facility] No Panel InformationOrdered By: Katarina Stevens on 05-16-2025 Urine Leukocytes Positive [facility] Urine Non-Hemolyzed Blood Trace [facility] Urine cultureOrdered By: Kennedy Stevens on 05-16-2025 Bacteria identified Cx Nom (U) Escherichia coli Abnormal [facility] EBV Acute Prof IgG / IgMon 0 05-01-2025 EB Ab VCA, IgG 218.0 U/mL High 0.0-17.9 [facility] Comment on above: Result Comment: Nega tive <18.0 Equivocal 18.0 - 21.9 Positive >21.9 Performed By: #### L 509.1000, L501.4021, L500.4050, L100.0100, L500.4100, L501.9520, L3100.5850, L501.01905 #### [facility] [address] [place], [place], [id number] EBV Ab VCA, IgM < 36.0 Normal 0.0-35.9 [facility] Comment on above: Result Comment: Nega tive <36.0 Equivocal 36.0 - 43.9 Positive >43.9 Performed By: #### L 509.1000, L501.4021, L500.4050, L100.0100, L500.4100, L501.9520, L3100.5850, L501.65750 #### [facility] [address] [place], [place], [id number] EBV NuAg Ab,IgG 157.0 U/mL High 0.0-17.9 [facility] Comment on above: Result Comment: Nega tive <18.0 Equivocal 18.0 - 21.9 Positive >21.9 Performed By: #### L 509.1000, L501.4021, L500.4050, L100.0100, L500.4100, L501.9520, L3100.5850, L501.63018 #### [facility] [address] [place], [address] INTERPRETATION Comment Normal . [facility] Comment on above: Result Comment: EBV Interpretation Chart Gunter: Antibody Present + Antibody Absent - Interpretation VCA-IgM VCA-IgG EBNA-IgG No previous infection/ - - - Susceptible Primary infection (new + + - or recent) Past Infection +or- + + See comment below* + - - *Results indicate infection with EBV at some time however cannot predict the timing of the infection since antibodies to EBNA usually develop after primary infection or, alternatively, approximately 5-10% of patients with EBV never develop antibodies to EBNA. Performed at: [address] [id number] Combat Engineer: Ilya Hein PhD, Phone: [phone] Performed By: #### L 509.1000, L501.4021, L500.4050, L100.0100, L500.4100, L501.9520, L3100.5850, L501.04422 #### [facility] [address] [place], [address] Comprehensive Metabolic Prof [facility] 04-29-2025 Albumin [Mass/Vol] 4.2 g/dL Normal 3.4-4.8 [facility] Comment on above: Performed By: #### L 509.1000, L501.4021, L500.4050, L100.0100, L500.4100, L501.9520, L3100.5850, L501.42080 #### [facility] [address] [place], [place], [id number] Albumin/Globulin [Mass ratio] 1.7 {ratio} Normal 0.9-2.4 [facility] Comment on above: Performed By: #### L 509.1000, L501.4021, L500.4050, L100.0100, L500.4100, L501.9520, L3100.5850, L501.54519 #### [facility] [address] [place], [address] ALK PHOS 156 U/L High 35-104 [facility] Comment on above: Performed By: #### L 509.1000, L501.4021, L500.4050, L100.0100, L500.4100, L501.9520, L3100.5850, L501.34630 #### [facility] [address] [place], [place], [phone] (429) ALT [Catalytic activity/Vol] 16 U/L Normal <=34 [facility] Comment on above: Performed By: #### L 509.1000, L501.4021, L500.4050, L100.0100, L500.4100, L501.9520, L3100.5850, L501.96109 #### [facility] [address] [place], [place], [id number] AST [Catalytic activity/Vol] 20 U/L Normal <=31 [facility] Comment on above: Performed By: #### L 509.1000, L501.4021, L500.4050, L100.0100, L500.4100, L501.9520, L3100.5850, L501.29564 #### [facility] [address] [place], [place], [phone] Bilirubin [Mass/Vol] 0.54 mg/dL Normal 0.00-1.30 [facility] Comment on above: Performed By: #### L 509.1000, L501.4021, L500.4050, L100.0100, L500.4100, L501.9520, L3100.5850, L501.94870 #### [facility] [address] [place], [address] BUN/CRE 14.4 RATIO Normal 10-20 [facility] Comment on above: Performed By: #### L 509.1000, L501.4021, L500.4050, L100.0100, L500.4100, L501.9520, L3100.5850, L501.35605 #### [facility] [address] [place], [address] Calcium [Mass/Vol] 9.4 mg/dL Normal 7.6-11.0 [facility] Comment on above: Performed By: #### L 509.1000, L501.4021, L500.4050, L100.0100, L500.4100, L501.9520, L3100.5850, L501.93695 #### [facility] [address] [place], [address] Chloride [Moles/Vol] 107 mmol/L Normal 98-108 [facility] Comment on above: Performed By: #### L 509.1000, L501.4021, L500.4050, L100.0100, L500.4100, L501.9520, L3100.5850, L501.77169 #### [facility] [address] [place], [address] CO2 [Moles/Vol] 19.2 mmol/L Low 21.0-32.0 [facility] Comment on above: Performed By: #### L 509.1000, L501.4021, L500.4050, L100.0100, L500.4100, L501.9520, L3100.5850, L501.62675 #### [facility] [address] [place], [address] Creatinine [Mass/Vol] 1.49 mg/dL High 0.70-1.20 [facility] Comment on above: Performed By: #### L 509.1000, L501.4021, L500.4050, L100.0100, L500.4100, L501.9520, L3100.5850, L501.05177 #### [facility] [address] [place], [address] GAP 14 Normal 5-15 [facility] Comment on above: Performed By: #### L 509.1000, L501.4021, L500.4050, L100.0100, L500.4100, L501.9520, L3100.5850, L501.06221 #### [facility] [address] [place], [address] GFR/1.73 sq M.predicted among non-blacks MDRD (S/P/Bld) [Vol rate/Area] 36 mL/min/{1.73_m2} Low >60 [facility] Comment on above: Result Comment: mL/m in/1.73m2 CKD-EPI Creatinine Equation (2020) Performed By: #### L 509.1000, L501.4021, L500.4050, L100.0100, L500.4100, L501.9520, L3100.5850, L501.12254 #### [facility] [address] [place], [address] Globulin (S) [Mass/Vol] 2.5 g/dL Normal 2.2-4.2 [facility] Comment on above: Performed By: #### L 509.1000, L501.4021, L500.4050, L100.0100, L500.4100, L501.9520, L3100.5850, L501.18602 #### [facility] [address] [place], [address] Glucose [Mass/Vol] 139 mg/dL High 70-99 [facility] Comment on above: Performed By: #### L 509.1000, L501.4021, L500.4050, L100.0100, L500.4100, L501.9520, L3100.5850, L501.77066 #### [facility] [address] [place], [address] Potassium [Moles/Vol] 3.8 mmol/L Normal 3.3-5.1 [facility] Comment on above: Performed By: #### L 509.1000, L501.4021, L500.4050, L100.0100, L500.4100, L501.9520, L3100.5850, L501.91376 #### [facility] [address] [place], [address] Sodium [Moles/Vol] 139 mmol/L Normal 133-145 [facility] Comment on above: Performed By: #### L 509.1000, L501.4021, L500.4050, L100.0100, L500.4100, L501.9520, L3100.5850, L501.82881 #### [facility] [address] [place], [address] T PROT 6.7 g/dL Normal 5.9-8.4 [facility] Comment on above: Performed By: #### L 509.1000, L501.4021, L500.4050, L100.0100, L500.4100, L501.9520, L3100.5850, L501.88874 #### [facility] [address] [place], [address] Urea nitrogen [Mass/Vol] 22 mg/dL High 4-19 [facility] Comment on above: Performed By: #### L 509.1000, L501.4021, L500.4050, L100.0100, L500.4100, L501.9520, L3100.5850, L501.99689 #### [facility] [address] [place], [address] Free T3on 04-29-2025 Free T3 [Mass/Vol] 2.4 pg/mL Normal 2.18-3.98 [facility] Comment on above: Performed By: #### L 509.1000, L501.4021, L500.4050, L100.0100, L500.4100, L501.9520, L3100.5850, L501.80049 #### [facility] [address] [place], [address] L501.4021on 04-29-2025 Trop T High Sen 7 ng/L Normal <=14 [facility] Comment on above: Performed By: #### L 509.1000, L501.4021, L500.4050, L100.0100, L500.4100, L501.9520, L3100.5850, L501.80313 #### [facility] [address] [place], [address] Lipid Profileon 04-29-2025 CHOL:HDL 3.75 Normal [facility] Comment on above: Performed By: #### L 509.1000, L501.4021, L500.4050, L100.0100, L500.4100, L501.9520, L3100.5850, L501.27650 #### [facility] [address] [place], [address] Cholesterol [Mass/Vol] 152 mg/dL Normal <=200 [facility] Comment on above: Result Comment: Chol esterol level, Desirable <200 mg/dL Borderline high cholesterol 200-239 mg/dL High cholesterol >=240 mg/dL Recommendations of the NCEP Adult Treatment Panel for the following risk-cutoff thresholds for the [place] population. Performed By: #### L 509.1000, L501.4021, L500.4050, L100.0100, L500.4100, L501.9520, L3100.5850, L501.31948 #### [facility] [address] [place], [address] Cholesterol in HDL [Mass/Vol] 41 mg/dL Normal [facility] Comment on above: Result Comment: Chelsie onal Cholesterol Education Program (NCEP) guidelines: <40 mg/dL: Low HDL-cholesterol (major risk factor for CHD) >= 60 mg/dL: High HDL-cholesterol (negative risk factor for CHD) HDL-cholesterol is affected by a number of factors, e.g. smoking, exercise, hormones, sex and age. Performed By: #### L 509.1000, L501.4021, L500.4050, L100.0100, L500.4100, L501.9520, L3100.5850, L501.27523 #### [facility] [address] [place], [address] Cholesterol in LDL [Mass/Vol] 48 mg/dL Normal [facility] Comment on above: Result Comment: Bord stqfmr=192-508 mg/dL Higher Knmh=981 mg/dL or greater Performed By: #### L 509.1000, L501.4021, L500.4050, L100.0100, L500.4100, L501.9520, L3100.5850, L501.97865 #### [facility] [address] [place], [address] Cholesterol in VLDL [Mass/Vol] 63 mg/dL High 5-40 [facility] Comment on above: Performed By: #### L 509.1000, L501.4021, L500.4050, L100.0100, L500.4100, L501.9520, L3100.5850, L501.96814 #### [facility] [address] [place], [address] Triglyceride [Mass/Vol] 317 mg/dL High [facility] Comment on above: Result Comment: The drugs N-Acetylcysteine and Metamizole may falsely depress this assay. Normal range: <150 mg/dL Borderline High: 150-199 mg/dL High: 200-499 mg/dL Very High: >500 mg/dL Performed By: #### L 509.1000, L501.4021, L500.4050, L100.0100, L500.4100, L501.9520, L3100.5850, L501.42074 #### [facility] [address] [place], [place], [id number] PTHINon 04-29-2025 PTH 76 pg/mL High 11-61 [facility] Comment on above: Performed By: #### L 509.1000, L501.4021, L500.4050, L100.0100, L500.4100, L501.9520, L3100.5850, L501.47294 #### [facility] [address] [place], [place], [id number] Thyroid Stim Hormone (TSH)on 04-29-2025 TSH 2.360 uIU/mL Normal 0.300-4.20 0 [facility] Comment on above: Performed By: #### L 509.1000, L501.4021, L500.4050, L100.0100, L500.4100, L501.9520, L3100.5850, L501.28287 #### [facility] [address] [place], [place], [id number] Absolute lymphocyte countOrd ered By: Katarina Stevens on 04-28-2025 Lymphocytes Auto (Unsp spec) [#/Vol] 2.09 10*3/uL 0.83-4.51 [facility] Absolute neutrophil countOrd ered By: Katarina Stevens on 04-28-2025 Neutrophils (Bld) [#/Vol] 6.0 10*3/uL 2.0-7.7 [facility] Anion gap in Serum or Plasma Ordered By: Katarina Stevens on 04-28-2025 Anion gap [Moles/Vol] 14 mmol/L 5-15 [facility] Automated lymphocyte count a s percentage of total leukocytesOrdered By: Katarina Stevens on 04-28-2025 Lymphocytes/100 WBC Auto (Unsp spec) 22.7 % 19-41 [facility] BUN/creatinine ratioOrdered By: Katarina Stevens on 04-28-2025 Urea nitrogen/Creatinine [Mass ratio] 14.4 mg/mg 10-20 [facility] Basophil percentageOrdered B y: Katarina Stevens on 04-28-2025 Basophils/100 WBC (Bld) 0.8 % 0-1 [facility] Bilirubin, totalOrdered By: Katarina Stevens on 04-28-2025 Bilirubin [Mass/Vol] 0.54 mg/dL 0.00-1.30 [facility] CBC W/Diff, Automatedon 04-18 Absolute Lymph 2.09 X10 3/uL Normal 0.83-4.51 [facility] Comment on above: Performed By: #### L 509.1000, L501.4021, L500.4050, L100.0100, L500.4100, L501.9520, L3100.5850, L501.11927 #### [facility] [address] [place], [address] Absolute Neut 6.0 X10 3/uL Normal 2.0-7.7 [facility] Comment on above: Performed By: #### L 509.1000, L501.4021, L500.4050, L100.0100, L500.4100, L501.9520, L3100.5850, L501.83422 #### [facility] [address] [place], [address] Basophils/100 WBC (Bld) 0.8 % Normal 0-1 [facility] Comment on above: Performed By: #### L 509.1000, L501.4021, L500.4050, L100.0100, L500.4100, L501.9520, L3100.5850, L501.86758 #### [facility] [address] [place], [address] Eosinophils/100 WBC (Bld) 3.1 % Normal 0-5 [facility] Comment on above: Performed By: #### L 509.1000, L501.4021, L500.4050, L100.0100, L500.4100, L501.9520, L3100.5850, L501.01595 #### [facility] [address] [place], [address] Erythrocyte distribution width (RBC) [Ratio] 12.4 % Normal 11.6-14.6 [facility] Comment on above: Performed By: #### L 509.1000, L501.4021, L500.4050, L100.0100, L500.4100, L501.9520, L3100.5850, L501.34512 #### [facility] [address] [place], [address] Hematocrit (Bld) [Volume fraction] 38.1 % Normal 37-47 [facility] Comment on above: Performed By: #### L 509.1000, L501.4021, L500.4050, L100.0100, L500.4100, L501.9520, L3100.5850, L501.90902 #### [facility] [address] [place], [address] Hemoglobin (Bld) [Mass/Vol] 13.0 g/dL Normal 12.0-15.0 [facility] Comment on above: Performed By: #### L 509.1000, L501.4021, L500.4050, L100.0100, L500.4100, L501.9520, L3100.5850, L501.10357 #### [facility] [address] [place], [address] IG% 0.400 Normal 0.0-0.9 [facility] Comment on above: Result Comment: IG% - Immature Granulocytes (promyelocytes, myelocytes and metamyelocytes) > 1% indicates that a LEFT SHIFT is Present. Performed By: #### L 509.1000, L501.4021, L500.4050, L100.0100, L500.4100, L501.9520, L3100.5850, L501.73410 #### [facility] [address] [place], [address] Lymphocytes/100 WBC (Bld) 22.7 % Normal 19-41 [facility] Comment on above: Performed By: #### L 509.1000, L501.4021, L500.4050, L100.0100, L500.4100, L501.9520, L3100.5850, L501.24305 #### [facility] [address] [place], [address] MCH (RBC) [Entitic mass] 32.3 pg High 27.0-32.0 [facility] Comment on above: Performed By: #### L 509.1000, L501.4021, L500.4050, L100.0100, L500.4100, L501.9520, L3100.5850, L501.88603 #### [facility] [address] [place], [address] MCHC (RBC) [Mass/Vol] 34.1 g/dL Normal 32-36 [facility] Comment on above: Performed By: #### L 509.1000, L501.4021, L500.4050, L100.0100, L500.4100, L501.9520, L3100.5850, L501.77332 #### [facility] [address] [place], [address] MCV (RBC) [Entitic vol] 94.5 fL Normal 81-99 [facility] Comment on above: Performed By: #### L 509.1000, L501.4021, L500.4050, L100.0100, L500.4100, L501.9520, L3100.5850, L501.29614 #### [facility] [address] [place], [address] Monocytes/100 WBC (Bld) 8.1 % Normal 0-10 [facility] Comment on above: Performed By: #### L 509.1000, L501.4021, L500.4050, L100.0100, L500.4100, L501.9520, L3100.5850, L501.69991 #### [facility] [address] [place], [address] Neutrophils/100 WBC (Bld) 64.9 % Normal 47-70 [facility] Comment on above: Performed By: #### L 509.1000, L501.4021, L500.4050, L100.0100, L500.4100, L501.9520, L3100.5850, L501.41970 #### [facility] [address] [place] [place], [address] Nucleated RBC (Bld) [#/Vol] 0 10*3/uL Normal 0-5 [facility] Comment on above: Performed By: #### L 509.1000, L501.4021, L500.4050, L100.0100, L500.4100, L501.9520, L3100.5850, L501.78642 #### [facility] [address] [place], [address] Platelet mean volume (Bld) [Entitic vol] 12.2 fL High 6.2-12.0 [facility] Comment on above: Performed By: #### L 509.1000, L501.4021, L500.4050, L100.0100, L500.4100, L501.9520, L3100.5850, L501.25334 #### [facility] [address] [place], [address] Platelets (Bld) [#/Vol] 200 10*3/uL Normal 150-450 [facility] Comment on above: Performed By: #### L 509.1000, L501.4021, L500.4050, L100.0100, L500.4100, L501.9520, L3100.5850, L501.17261 #### [facility] [address] [place], [address] RBC (Bld) [#/Vol] 4.03 10*6/uL Low 4.2-5.4 [facility] Comment on above: Performed By: #### L 509.1000, L501.4021, L500.4050, L100.0100, L500.4100, L501.9520, L3100.5850, L501.68149 #### [facility] [address] [place], [address] RDW SD 43.0 fl Normal 35.1-43.9 [facility] Comment on above: Performed By: #### L 509.1000, L501.4021, L500.4050, L100.0100, L500.4100, L501.9520, L3100.5850, L501.61092 #### [facility] [address] [place], [address] WBC (Bld) [#/Vol] 9.2 10*3/uL Normal 4.4-11.0 [facility] Comment on above: Performed By: #### L 509.1000, L501.4021, L500.4050, L100.0100, L500.4100, L501.9520, L3100.5850, L501.84799 #### [facility] [address] [place], [address] Calculated very low density lipoprotein (VLDL) cholesterol measurementOrdered By: Katarina Stevens on 04-28-2025 Calculated very low density lipoprotein (VLDL) cholesterol measurement 63 mg/dL High 5-40 [facility] Carbon dioxide, total [Moles /volume] in Central venous bloodOrdered By: Katarina Stevens on 04-28-2025 CO2 [Moles/Vol] 19.2 mmol/L Low 21.0-32.0 [facility] Chloride assayOrdered By: Do ra Stevens on 04-28-2025 Chloride [Moles/Vol] 107 mmol/L 98-108 [facility] Eosinophil percentageOrdered By: Katarina Stevens on 04-28-2025 Eosinophils/100 WBC (Bld) 3.1 % 0-5 [facility] Erythrocyte distribution wid th ratioOrdered By: Katarina Stevens on 04-28-2025 Erythrocyte distribution width (RBC) [Ratio] 12.4 % 11.6-14.6 [facility] Erythrocyte distribution wid th standard deviationOrdered By: Katarina Stevens on 04-28-2025 Erythrocyte distribution width (RBC) [Ratio] 43.0 fl 35.1-43.9 [facility] Free V9Fltcozb By: Katarina arguello on 04-28-2025 Free T3 [Mass/Vol] 2.4 pg/mL 2.18-3.98 [facility] Glomerular filtration rate ( GFR) estimation/1.73 sq m using serum, plasma, or whole bOrdered By: Katarina Stevens on 04-28-2025 GFR/1.73 sq M.predicted among non-blacks MDRD (S/P/Bld) [Vol rate/Area] 36 mL/min/{1.73_m2} Low >60 [facility] Comment on above: mL/min/1.73m2 CKD-EP I Creatinine Equation (2020) Hematocrit Auto (Bld) [Volum e fraction]Ordered By: Katarina Stevens on 04-28-2025 Hematocrit (Bld) [Volume fraction] 38.1 % 37-47 [facility] Hemoglobin measurementOrdere d By: Katarina Stevens on 04-28-2025 Hemoglobin (Bld) [Mass/Vol] 13.0 g/dL 12.0-15.0 [facility] Immature granulocytes/100 WB C Auto (Bld)Ordered By: Katarina Stevens on 04-28-2025 Immature granulocytes/100 WBC (Bld) 0.400 % 0.0-0.9 [facility] Comment on above: IG% - Immature Granu locytes (promyelocytes, myelocytes and metamyelocytes) > 1% indicates that a LEFT SHIFT is Present. LDL calc ser/plasOrdered By: Katarina Stevens on 04-28-2025 Cholesterol in LDL [Mass/Vol] 48 mg/dL [facility] Comment on above: Xshzjzanlj=702-147 m g/dL & Higher Zjat=988 mg/dL or greater Laboratory - Chemistry and C hemistry - challengeOrdered By: Katarina Stevens on 04-28-2025 AST [Catalytic activity/Vol] 20 U/L <32 [facility] MCV (mean corpuscular volume ) determinationOrdered By: Katarina Stevens on 04-28-2025 MCV (RBC) [Entitic vol] 94.5 fL 81-99 [facility] Mean corpuscular hemoglobin (MCH) determinationOrdered By: Katarina Stevens on 04-28-2025 MCH (RBC) [Entitic mass] 32.3 pg High 27.0-32.0 [facility] Mean corpuscular hemoglobin concentration (MCHC) determinationOrdered By: Katarina Stevens on 04-28-2025 MCHC (RBC) [Mass/Vol] 34.1 g/dL 32-36 [facility] Mean platelet volume determi nationOrdered By: Katarina Stevens on 04-28-2025 Platelet mean volume (Bld) [Entitic vol] 12.2 fL High 6.2-12.0 [facility] Monocyte percentageOrdered B y: Katarina Stevens on 04-28-2025 Monocytes/100 WBC (Bld) 8.1 % 0-10 [facility] Neutrophil percentageOrdered By: Katarina Stevens on 04-28-2025 Neutrophils/100 WBC (Bld) 64.9 % 47-70 [facility] Nucleated red blood cell per centageOrdered By: Katarina Stevens on 04-28-2025 Nucleated RBC/100 WBC (Bld) [Ratio] 0 % 0-5 [facility] Platelet countOrdered By: Do ra Stevens on 04-28-2025 Platelets (Bld) [#/Vol] 200 10*3/uL 150-450 [facility] Potassium measurement (mass/ volume)Ordered By: Katarina Stevens on 04-28-2025 Potassium (Unsp spec) [Mass/Vol] 3.8 mmol/L 3.3-5.1 [facility] RBC Auto (Bld) [#/Vol]Ordere d By: Katarina Stevens on 04-28-2025 RBC (Bld) [#/Vol] 4.03 10*6/uL Low 4.2-5.4 [facility] Screening total cholesterol/ high density lipoprotein (HDL) cholesterol ratioOrdered By: Katarina Stevens on 04-28-2025 Cholesterol.total/Chol esterol in HDL [Mass ratio] 3.75 {ratio} [facility] Serum Crystal Rodríguez virus cap nuha IgM antibody assay (units/volume)Ordered By: Katarina Stevens on 04-28-2025 EBV capsid IgM Qn (S) [arb'U]/mL 0.0-35.9 [facility] Comment on above: Negative <36.0 Equiv ocal 36.0 - 43.9 Positive >43.9 Serum Crystal Rodríguez virus nuc lear IgG antibody assay (units/volume)Ordered By: Katarina Stevens on 04-28-2025 EBV nuclear IgG Qn (S) 157.0 U/mL High 0.0-17.9 [facility] Comment on above: Negative <18.0 Equiv ocal 18.0 - 21.9 Positive >21.9 Serum creatinine measurement (mass/volume)Ordered By: Katarina Stevens on 04-28-2025 Creatinine [Mass/Vol] 1.49 mg/dL High 0.70-1.20 [facility] Serum globulin measurementOr dered By: Katarina Stevens on 04-28-2025 Globulin (S) [Mass/Vol] 2.5 g/dL 2.2-4.2 [facility] Serum glucose measurement (m ass/volume)Ordered By: Katarina Stevens on 04-28-2025 Glucose [Mass/Vol] 139 mg/dL High 70-99 [facility] Serum or plasma alanine tapia otransferase (ALT) measurementOrdered By: Katarina Stevens on 04-28-2025 ALT [Catalytic activity/Vol] 16 U/L <35 [facility] Serum or plasma albumin laz urement (mass/volume)Ordered By: Katarina Stevens on 04-28-2025 Albumin [Mass/Vol] 4.2 g/dL 3.4-4.8 [facility] Serum or plasma albumin/glob ulin mass ratioOrdered By: Katarina Stevens on 04-28-2025 Albumin/Globulin [Mass ratio] 1.7 {ratio} 0.9-2.4 [facility] Serum or plasma alkaline marcos sphatase measurementOrdered By: Katarina Stevens on 04-28-2025 ALP [Catalytic activity/Vol] 156 U/L High 35-104 [facility] Serum or plasma calcium laz urement (mass/volume)Ordered By: Katarina Stevens on 04-28-2025 Calcium [Mass/Vol] 9.4 mg/dL 7.6-11.0 [facility] Serum or plasma cholesterol in HDL measurement (mass/volume)Ordered By: Katarina Stevens on 04-28-2025 Cholesterol in HDL [Mass/Vol] 41 mg/dL >40 [facility] Comment on above: National Cholesterol Education Program (NCEP) guidelines:<40 mg/dL: Low HDL-cholesterol (major risk factor for CHD)>= 60 mg/dL: High HDL-cholesterol (negative risk factor for CHD)HDL-cholesterol is affected by a number of factors, e.g. smoking, exercise, hormones, sex and age. Serum or plasma cholesterol measurement (mass/volume)Ordered By: Katarina Stevens on 04-28-2025 Cholesterol [Mass/Vol] 152 mg/dL <201 [facility] Comment on above: Cholesterol level, D esirable <200 mg/dLBorderline high cholesterol 200-239 mg/dLHigh cholesterol >=240 mg/dLRecommendations of the NCEP Adult Treatment Panel for the following risk-cutoff thresholds for the [place] population. Serum or plasma urea nitroge n measurement (mass/volume)Ordered By: Katarina Stevens on 04-28-2025 Urea nitrogen [Mass/Vol] 22 mg/dL High 4-19 [facility] Sodium levelOrdered By: Katarina Stevens on 04-28-2025 Sodium [Moles/Vol] 139 mmol/L 133-145 [facility] TSH DL <= 0.005 mIU/L QnOrde red By: Katarina Stevens on 04-28-2025 TSH Qn 2.360 uIU/mL 0.300-4.20 0 [facility] Total proteinOrdered By: Kennedy Stevens on 04-28-2025 Protein [Mass/Vol] 6.7 g/dL 5.9-8.4 [facility] Triglycerides measurementOrd ered By: Katarina Stevens on 04-28-2025 Triglyceride [Mass/Vol] 317 mg/dL High <199 [facility] Comment on above: The drugs N-Acetylcy steine and Metamizole may falsely depress this assay. Normal range: <150 mg/dLBorderline High: 150-199 mg/dLHigh: 200-499 mg/dLVery High: >500 mg/dL Troponin T.cardiac [Mass/vol ume] in Serum or Plasma by High sensitivity methodOrdered By: Katarina Stevens on 04-28-2025 Troponin T.cardiac High sensitivity method [Mass/Vol] 7 ng/L <14 [facility] White blood cell (WBC) count Ordered By: Katarina Stevens on 04-28-2025 WBC (Bld) [#/Vol] 9.2 10*3/uL 4.4-11.0 [facility] Office Visiton 04-14-2025 Follow-up visit [id number] Milena Mcghee 1945 F Date Provider Department Center 04/14/2025 [id number] CRUZ [facility] PN None Family History Adopted: Yes Level of Service:34369 [place] OFFICE/OUTPATIENT ESTABLISHED MOD MDM 30 MIN Reason for Visit and Comments: Back Pain [12] - She says she did go to PT about 6 times. She says it helped with the R side, but not the L side. She's says she still is doing her exercises. Normal [facility] Progress Noteon 04-14-2025 Progress Note [facility]NA[facility] [address] [facility] [address] Dept: [phone] Dept Chief Complaint Patient presents with Back [...] Prior Pain Clinic -- Dr Morrison in [place] Chronic opiates -- No Previous Pain Procedures [...] Take 1 (more content not included)... Normal [facility] Absolute lymphocyte countOrd ered By: Katarina Stevens on 04-05-2025 Lymphocytes Auto (Unsp spec) [#/Vol] 2.17 10*3/uL 0.83-4.51 [facility] Absolute neutrophil countOrd ered By: Katarina Stevens on 04-05-2025 Neutrophils (Bld) [#/Vol] 4.9 10*3/uL 2.0-7.7 [facility] Anion gap in Serum or Plasma Ordered By: Katarina Stevens on 04-05-2025 Anion gap [Moles/Vol] 12 mmol/L 5-15 [facility] Automated lymphocyte count a s percentage of total leukocytesOrdered By: Katarina Stevens on 04-05-2025 Lymphocytes/100 WBC Auto (Unsp spec) 26.5 % - [facility] BUN/creatinine ratioOrdered By: Katarina Stevens on 04-05-2025 Urea nitrogen/Creatinine [Mass ratio] 15.6 mg/mg 10- [facility] Basophil percentageOrdered B y: Katarina Stevens on 04-05-2025 Basophils/100 WBC (Bld) 0.9 % 0-1 [facility] Bilirubin Test strip Ql (U)O rdered By: Katarina Stevens on 04-05-2025 Bilirubin Ql (U) Negative Negative [facility] Bilirubin, totalOrdered By: Katarina Stevens on 04-05-2025 Bilirubin [Mass/Vol] 0.66 mg/dL 0.00-1.30 [facility] CBC W/Diff, Automatedon 03-19 Absolute Lymph 2.17 X10 3/uL Normal 0.83-4.51 [facility] Comment on above: Performed By: #### L 509.1000, L500.4050, L501.0900, L506.1001, L100.0100, L400.0001 #### [facility] [address] [place], [address] Absolute Neut 4.9 X10 3/uL Normal 2.0-7.7 [facility] Comment on above: Performed By: #### L 509.1000, L500.4050, L501.0900, L506.1001, L100.0100, L400.0001 #### [facility] [address] [place], [address] Basophils/100 WBC (Bld) 0.9 % Normal 0-1 [facility] Comment on above: Performed By: #### L 509.1000, L500.4050, L501.0900, L506.1001, L100.0100, L400.0001 #### [facility] [address] [place], [address] Eosinophils/100 WBC (Bld) 3.7 % Normal 0-5 [facility] Comment on above: Performed By: #### L 509.1000, L500.4050, L501.0900, L506.1001, L100.0100, L400.0001 #### [facility] [address] [place], [address] Erythrocyte distribution width (RBC) [Ratio] 12.2 % Normal 11.6-14.6 [facility] Comment on above: Performed By: #### L 509.1000, L500.4050, L501.0900, L506.1001, L100.0100, L400.0001 #### [facility] [address] [place], [address] Hematocrit (Bld) [Volume fraction] 40.4 % Normal 37-47 [facility] Comment on above: Performed By: #### L 509.1000, L500.4050, L501.0900, L506.1001, L100.0100, L400.0001 #### [facility] [address] [place], [address] Hemoglobin (Bld) [Mass/Vol] 13.5 g/dL Normal 12.0-15.0 [facility] Comment on above: Performed By: #### L 509.1000, L500.4050, L501.0900, L506.1001, L100.0100, L400.0001 #### [facility] [address] [place], [address] IG% 0.400 Normal 0.0-0.9 [facility] Comment on above: Result Comment: IG% - Immature Granulocytes (promyelocytes, myelocytes and metamyelocytes) > 1% indicates that a LEFT SHIFT is Present. Performed By: #### L 509.1000, L500.4050, L501.0900, L506.1001, L100.0100, L400.0001 #### [facility] [address] [place], [address] Lymphocytes/100 WBC (Bld) 26.5 % Normal 19-41 [facility] Comment on above: Performed By: #### L 509.1000, L500.4050, L501.0900, L506.1001, L100.0100, L400.0001 #### [facility] [address] [place], [address] MCH (RBC) [Entitic mass] 31.8 pg Normal 27.0-32.0 [facility] Comment on above: Performed By: #### L 509.1000, L500.4050, L501.0900, L506.1001, L100.0100, L400.0001 #### [facility] [address] [place], [address] MCHC (RBC) [Mass/Vol] 33.4 g/dL Normal 32-36 [facility] Comment on above: Performed By: #### L 509.1000, L500.4050, L501.0900, L506.1001, L100.0100, L400.0001 #### [facility] [address] [place], [address] MCV (RBC) [Entitic vol] 95.3 fL Normal 81-99 [facility] Comment on above: Performed By: #### L 509.1000, L500.4050, L501.0900, L506.1001, L100.0100, L400.0001 #### [facility] [address] [place], [address] Monocytes/100 WBC (Bld) 8.7 % Normal 0-10 [facility] Comment on above: Performed By: #### L 509.1000, L500.4050, L501.0900, L506.1001, L100.0100, L400.0001 #### [facility] [address] [place], [address] Neutrophils/100 WBC (Bld) 59.8 % Normal 47-70 [facility] Comment on above: Performed By: #### L 509.1000, L500.4050, L501.0900, L506.1001, L100.0100, L400.0001 #### [facility] [address] [place], [address] Nucleated RBC (Bld) [#/Vol] 0 10*3/uL Normal 0-5 [facility] Comment on above: Performed By: #### L 509.1000, L500.4050, L501.0900, L506.1001, L100.0100, L400.0001 #### [facility] [address] [place], [address] Platelet mean volume (Bld) [Entitic vol] 11.7 fL Normal 6.2-12.0 [facility] Comment on above: Performed By: #### L 509.1000, L500.4050, L501.0900, L506.1001, L100.0100, L400.0001 #### [facility] [address] [place], [address] Platelets (Bld) [#/Vol] 216 10*3/uL Normal 150-450 [facility] Comment on above: Performed By: #### L 509.1000, L500.4050, L501.0900, L506.1001, L100.0100, L400.0001 #### [facility] [address] [place], [address] RBC (Bld) [#/Vol] 4.24 10*6/uL Normal 4.2-5.4 [facility] Comment on above: Performed By: #### L 509.1000, L500.4050, L501.0900, L506.1001, L100.0100, L400.0001 #### [facility] [address] [place], [address] RDW SD 42.3 fl Normal 35.1-43.9 [facility] Comment on above: Performed By: #### L 509.1000, L500.4050, L501.0900, L506.1001, L100.0100, L400.0001 #### [facility] [address] [place], [address] WBC (Bld) [#/Vol] 8.2 10*3/uL Normal 4.4-11.0 [facility] Comment on above: Performed By: #### L 509.1000, L500.4050, L501.0900, L506.1001, L100.0100, L400.0001 #### [facility] [address] [place], [address] Carbon dioxide, total [Moles /volume] in Central venous bloodOrdered By: Katarina Stevens on 04-05-2025 CO2 [Moles/Vol] 23.5 mmol/L 21.0-32.0 [facility] Chloride assayOrdered By: Do ra Stevens on 04-05-2025 Chloride [Moles/Vol] 106 mmol/L 98-108 [facility] Comprehensive Metabolic Prof ilon 04-05-2025 Albumin [Mass/Vol] 4.4 g/dL Normal 3.4-4.8 [facility] Comment on above: Performed By: #### L 509.1000, L501.4021, L500.4050, L100.0100, L500.4100, L501.9520, L3100.5850, L501.47491 #### [facility] [address] [place], [address] Albumin/Globulin [Mass ratio] 1.6 {ratio} Normal 0.9-2.4 [facility] Comment on above: Performed By: #### L 509.1000, L501.4021, L500.4050, L100.0100, L500.4100, L501.9520, L3100.5850, L501.10773 #### [facility] [address] [place], [address] ALK PHOS 146 U/L High 35-104 [facility] Comment on above: Performed By: #### L 509.1000, L501.4021, L500.4050, L100.0100, L500.4100, L501.9520, L3100.5850, L501.87845 #### [facility] [address] [place], [address] ALT [Catalytic activity/Vol] 17 U/L Normal <=34 [facility] Comment on above: Performed By: #### L 509.1000, L501.4021, L500.4050, L100.0100, L500.4100, L501.9520, L3100.5850, L501.11414 #### [facility] [address] [place], [address] AST [Catalytic activity/Vol] 22 U/L Normal <=31 [facility] Comment on above: Performed By: #### L 509.1000, L501.4021, L500.4050, L100.0100, L500.4100, L501.9520, L3100.5850, L501.59550 #### [facility] [address] [place], [address] Bilirubin [Mass/Vol] 0.66 mg/dL Normal 0.00-1.30 [facility] Comment on above: Performed By: #### L 509.1000, L501.4021, L500.4050, L100.0100, L500.4100, L501.9520, L3100.5850, L501.09817 #### [facility] [address] [place], [address] BUN/CRE 15.6 RATIO Normal 10-20 [facility] Comment on above: Performed By: #### L 509.1000, L501.4021, L500.4050, L100.0100, L500.4100, L501.9520, L3100.5850, L501.94977 #### [facility] [address] [place], [address] Calcium [Mass/Vol] 9.8 mg/dL Normal 7.6-11.0 [facility] Comment on above: Performed By: #### L 509.1000, L501.4021, L500.4050, L100.0100, L500.4100, L501.9520, L3100.5850, L501.87258 #### [facility] [address] [place], [address] Chloride [Moles/Vol] 106 mmol/L Normal 98-108 [facility] Comment on above: Performed By: #### L 509.1000, L501.4021, L500.4050, L100.0100, L500.4100, L501.9520, L3100.5850, L501.80286 #### [facility] [address] [place], [address] CO2 [Moles/Vol] 23.5 mmol/L Normal 21.0-32.0 [facility] Comment on above: Performed By: #### L 509.1000, L501.4021, L500.4050, L100.0100, L500.4100, L501.9520, L3100.5850, L501.07092 #### [facility] [address] [place], [address] Creatinine [Mass/Vol] 1.35 mg/dL High 0.70-1.20 [facility] Comment on above: Performed By: #### L 509.1000, L501.4021, L500.4050, L100.0100, L500.4100, L501.9520, L3100.5850, L501.10854 #### [facility] [address] [place], [address] GAP 12 Normal 5-15 [facility] Comment on above: Performed By: #### L 509.1000, L501.4021, L500.4050, L100.0100, L500.4100, L501.9520, L3100.5850, L501.97795 #### [facility] [address] [place], [address] GFR/1.73 sq M.predicted among non-blacks MDRD (S/P/Bld) [Vol rate/Area] 40 mL/min/{1.73_m2} Low >60 [facility] Comment on above: Result Comment: mL/m in/1.73m2 CKD-EPI Creatinine Equation (2020) Performed By: #### L 509.1000, L501.4021, L500.4050, L100.0100, L500.4100, L501.9520, L3100.5850, L501.04568 #### [facility] [address] [place], [address] Globulin (S) [Mass/Vol] 2.8 g/dL Normal 2.2-4.2 [facility] Comment on above: Performed By: #### L 509.1000, L501.4021, L500.4050, L100.0100, L500.4100, L501.9520, L3100.5850, L501.76929 #### [facility] [address] [place], [address] Glucose [Mass/Vol] 104 mg/dL High 70-99 [facility] Comment on above: Performed By: #### L 509.1000, L501.4021, L500.4050, L100.0100, L500.4100, L501.9520, L3100.5850, L501.55458 #### [facility] [address] [place], [address] Potassium [Moles/Vol] 4.5 mmol/L Normal 3.3-5.1 [facility] Comment on above: Performed By: #### L 509.1000, L501.4021, L500.4050, L100.0100, L500.4100, L501.9520, L3100.5850, L501.89969 #### [facility] [address] [place], [address] Sodium [Moles/Vol] 141 mmol/L Normal 133-145 [facility] Comment on above: Performed By: #### L 509.1000, L501.4021, L500.4050, L100.0100, L500.4100, L501.9520, L3100.5850, L501.21036 #### [facility] [address] [place], [address] T PROT 7.2 g/dL Normal 5.9-8.4 [facility] Comment on above: Performed By: #### L 509.1000, L501.4021, L500.4050, L100.0100, L500.4100, L501.9520, L3100.5850, L501.88757 #### [facility] [address] [place], [address] Urea nitrogen [Mass/Vol] 21 mg/dL High 4-19 [facility] Comment on above: Performed By: #### L 509.1000, L501.4021, L500.4050, L100.0100, L500.4100, L501.9520, L3100.5850, L501.31730 #### [facility] [address] [place], [address] Eosinophil percentageOrdered By: Katarina Stevens on 04-05-2025 Eosinophils/100 WBC (Bld) 3.7 % 0-5 [facility] Erythrocyte distribution wid th ratioOrdered By: Katarina Stevens on 04-05-2025 Erythrocyte distribution width (RBC) [Ratio] 12.2 % 11.6-14.6 [facility] Erythrocyte distribution wid th standard deviationOrdered By: Katarina Stevens on 04-05-2025 Erythrocyte distribution width (RBC) [Ratio] 42.3 fl 35.1-43.9 [facility] Glomerular filtration rate ( GFR) estimation/1.73 sq m using serum, plasma, or whole bOrdered By: Katarina Stevens on 04-05-2025 GFR/1.73 sq M.predicted among non-blacks MDRD (S/P/Bld) [Vol rate/Area] 40 mL/min/{1.73_m2} Low >60 [facility] Comment on above: mL/min/1.73m2 CKD-EP I Creatinine Equation (2020) Hematocrit Auto (Bld) [Volum e fraction]Ordered By: Katarina Stevens on 04-05-2025 Hematocrit (Bld) [Volume fraction] 40.4 % 37-47 [facility] Hemoglobin measurementOrdere d By: Katarina Stevens on 04-05-2025 Hemoglobin (Bld) [Mass/Vol] 13.5 g/dL 12.0-15.0 [facility] Immature granulocytes/100 WB C Auto (Bld)Ordered By: Katarina Stevens on 04-05-2025 Immature granulocytes/100 WBC (Bld) 0.400 % 0.0-0.9 [facility] Comment on above: IG% - Immature Granu locytes (promyelocytes, myelocytes and metamyelocytes) > 1% indicates that a LEFT SHIFT is Present. Ketones Test strip Ql (U)Ord ered By: Katarina Stevens on 04-05-2025 Ketones Ql (U) Negative Negative [facility] - Chemistry and C hemistry - challengeOrdered By: Katarina Stevens on 04-05-2025 AST [Catalytic activity/Vol] 22 U/L <32 [facility] MCV (mean corpuscular volume ) determinationOrdered By: Katarina Stevens on 04-05-2025 MCV (RBC) [Entitic vol] 95.3 fL 81-99 [facility] Mean corpuscular hemoglobin (MCH) determinationOrdered By: Katarina Stevens on 04-05-2025 MCH (RBC) [Entitic mass] 31.8 pg 27.0-32.0 [facility] Mean corpuscular hemoglobin concentration (MCHC) determinationOrdered By: Katarina Stevens on 04-05-2025 MCHC (RBC) [Mass/Vol] 33.4 g/dL 32-36 [facility] Mean platelet volume determi nationOrdered By: Katarina Stevens on 04-05-2025 Platelet mean volume (Bld) [Entitic vol] 11.7 fL 6.2-12.0 [facility] Microscopic analysis of urin e for red blood cells (RBC)Ordered By: Katarina Stevens on 04-05-2025 Microscopic analysis of urine for red blood cells (RBC) 0-5 SEEN /hpf 0-5 [facility] Monocyte percentageOrdered B y: Katarina Stevens on 04-05-2025 Monocytes/100 WBC (Bld) 8.7 % 0-10 [facility] Mucus LM Ql (Urine sed)Order ed By: Katarina Stevens on 04-05-2025 Mucus Ql (Urine sed) 0 SEEN /hpf [facility] Neutrophil percentageOrdered By: Katarina Stevens on 04-05-2025 Neutrophils/100 WBC (Bld) 59.8 % 47-70 [facility] Nitrite Test strip Ql (U)Ord ered By: Katarina Stevens on 04-05-2025 Nitrite Ql (U) Negative Negative [facility] Nucleated red blood cell per centageOrdered By: Katarina Stevens on 04-05-2025 Nucleated RBC/100 WBC (Bld) [Ratio] 0 % 0-5 [facility] PTHINon 04-05-2025 PTH 83 pg/mL High 11-61 [facility] Comment on above: Performed By: #### L 509.1000, L501.4021, L500.4050, L100.0100, L500.4100, L501.9520, L3100.5850, L501.38466 #### [facility] [address] [place], [address] Platelet countOrdered By: Do ra Stevens on 04-05-2025 Platelets (Bld) [#/Vol] 216 10*3/uL 150-450 [facility] Potassium measurement (mass/ volume)Ordered By: Katarina Stevens on 04-05-2025 Potassium (Unsp spec) [Mass/Vol] 4.5 mmol/L 3.3-5.1 [facility] Protein Test strip Ql (U)Ord ered By: Katarina Stevens on 04-05-2025 Protein Ql (U) 15 mg/dl High Negative [facility] Protein+Creatinine Ratio,Uri neon 04-05-2025 PROT:CRE RATIO 59 mg/g CRE Normal 0-200 [facility] Comment on above: Performed By: #### L 509.1000, L501.4021, L500.4050, L100.0100, L500.4100, L501.9520, L3100.5850, L501.49981 #### [facility] [address] [place], [address] Protein (U) [Mass/Vol] 15.6 mg/dL High 0.0-12.0 [facility] Comment on above: Performed By: #### L 509.1000, L501.4021, L500.4050, L100.0100, L500.4100, L501.9520, L3100.5850, L501.94659 #### [facility] [address] [place], [address] UR CREAT 266.00 mg/dL High 28.00-217. 00 [facility] Comment on above: Performed By: #### L 509.1000, L501.4021, L500.4050, L100.0100, L500.4100, L501.9520, L3100.5850, L501.55325 #### [facility] [address] [place], [address] RBC Auto (Bld) [#/Vol]Ordere d By: Katarina Stevens on 04-05-2025 RBC (Bld) [#/Vol] 4.24 10*6/uL 4.2-5.4 [facility] Random urine creatinine laz urement (mass/volume)Ordered By: Katarina Stevens on 04-05-2025 Creatinine Unsp time (U) [Mass/Vol] 266.00 mg/dL High 28.00-217. 00 [facility] Serum creatinine measurement (mass/volume)Ordered By: Katarina Stevens on 04-05-2025 Creatinine [Mass/Vol] 1.35 mg/dL High 0.70-1.20 [facility] Serum globulin measurementOr dered By: Katarina Stevens on 04-05-2025 Globulin (S) [Mass/Vol] 2.8 g/dL 2.2-4.2 [facility] Serum glucose measurement (m ass/volume)Ordered By: Katarina Stevens on 04-05-2025 Glucose [Mass/Vol] 104 mg/dL High 70-99 [facility] Serum or plasma alanine tapia otransferase (ALT) measurementOrdered By: Katarina Stevens on 04-05-2025 ALT [Catalytic activity/Vol] 17 U/L <35 [facility] Serum or plasma albumin laz urement (mass/volume)Ordered By: Katarina Stevens on 04-05-2025 Albumin [Mass/Vol] 4.4 g/dL 3.4-4.8 [facility] Serum or plasma albumin/glob ulin mass ratioOrdered By: Katarina Stevens on 04-05-2025 Albumin/Globulin [Mass ratio] 1.6 {ratio} 0.9-2.4 [facility] Serum or plasma alkaline marcos sphatase measurementOrdered By: Katarina Stevens on 04-05-2025 ALP [Catalytic activity/Vol] 146 U/L High 35-104 [facility] Serum or plasma calcium laz urement (mass/volume)Ordered By: Katarina Stevens on 04-05-2025 Calcium [Mass/Vol] 9.8 mg/dL 7.6-11.0 [facility] Serum or plasma urea nitroge n measurement (mass/volume)Ordered By: Katarina Stevens on 04-05-2025 Urea nitrogen [Mass/Vol] 21 mg/dL High 4-19 [facility] Sodium levelOrdered By: Katarina Stevens on 04-05-2025 Sodium [Moles/Vol] 141 mmol/L 133-145 [facility] Squamous epithelial cells de tection in urine sediment by light microscopyOrdered By: Katarina Stevens on 04-05-2025 Epithelial cells.squamous LM Ql (Urine sed) 0-5 SEEN /hpf 02-25 [facility] Total proteinOrdered By: Kennedy Stevens on 04-05-2025 Protein [Mass/Vol] 7.2 g/dL 5.9-8.4 [facility] Urinalysis, Completeon 04-05 EPI,SQUAMOUS 0-5 SEEN Normal 02-25 [facility] Comment on above: Order Comment: GABRIELA CTOR TO SPECIFY Performed By: #### L 509.1000, L500.4050, L501.0900, L506.1001, L100.0100, L400.0001 #### [facility] [address] [place], [address] RBC 0-5 SEEN Normal 0-5 [facility] Comment on above: Order Comment: GABRIELA CTOR TO SPECIFY Performed By: #### L 509.1000, L500.4050, L501.0900, L506.1001, L100.0100, L400.0001 #### [facility] [address] [place], [address] WBC 10-25 SEEN Normal 0-5 [facility] Comment on above: Order Comment: GABRIELA CTOR TO SPECIFY Performed By: #### L 509.1000, L500.4050, L501.0900, L506.1001, L100.0100, L400.0001 #### [facility] [address] [place], [address] BACTERIA 0 SEEN Normal None Seen [facility] Comment on above: Order Comment: COLLE CTOR TO SPECIFY Performed By: #### L 509.1000, L500.4050, L501.0900, L506.1001, L100.0100, L400.0001 #### [facility] [address] [place], [address] Mucus Ql (Urine sed) 0 SEEN Normal [facility] Comment on above: Order Comment: COLLE CTOR TO SPECIFY Performed By: #### L 509.1000, L500.4050, L501.0900, L506.1001, L100.0100, L400.0001 #### [facility] [address] [place], [address] Urine clarityOrdered By: Kennedy Stevens on 04-05-2025 Clarity (U) Clear Clear [facility] Urine color determinationOrd ered By: Katarina Stevens on 04-05-2025 Color (U) Yellow Yellow [facility] Urine glucose detectionOrder ed By: Katarina Stevens on 04-05-2025 Glucose Ql (U) Normal mg/dl Normal [facility] Urine leukocyte esterase det ection by dipstickOrdered By: Katarina Stevens on 04-05-2025 Leukocyte esterase Test strip Ql (U) 100 /ul High Negative [facility] Urine pHOrdered By: Katarina wright on 04-05-2025 pH (U) 5.0 [pH] 5.0 - 8.0 [facility] Urine protein measurement (m ass/volume)Ordered By: Katarina Stevens on 04-05-2025 Protein (U) [Mass/Vol] 15.6 mg/dL High 0.0-12.0 [facility] Urine protein/creatinine mas s ratioOrdered By: Katarina Stevens on 04-05-2025 Protein/Creatinine (U) [Mass ratio] 59 mg/g CRE 0-200 [facility] Urine sediment bacteria coun t by microscopy (number/high power field)Ordered By: Katarina Stevens on 04-05-2025 Bacteria LM.HPF (Urine sed) [#/Area] 0 /[HPF] None Seen [facility] Urine specific gravity measu rementOrdered By: Katarina Stevens on 04-05-2025 Specific gravity (U) [Rel density] 1.020 1.002-1.03 0 [facility] Urine urobilinogen measureme ntOrdered By: Katarina Stevens on 04-05-2025 Urobilinogen Ql (U) Normal mg/dl Normal [facility] Vitamin D,25 Hydroxyon 04-05 Vitamin D 25-OH 45.7 ng/mL Normal 30-100 [facility] Comment on above: Result Comment: Nalini min D Status Deficiency: <20 ng/mL (50nmol/L) Insufficiency: 20-30 ng/mL (50-75 nmol/L) Sufficiency: 30-100 ng/mL (75-250 nmol/L) Toxicity: >100 ng/mL (>250 nmol/L) Performed By: #### L 509.1000, L501.4021, L500.4050, L100.0100, L500.4100, L501.9520, L3100.5850, L501.81700 #### [facility] [address] [place], [address] White blood cell (WBC) count Ordered By: Katarina Stevens on 04-05-2025 WBC (Bld) [#/Vol] 8.2 10*3/uL 4.4-11.0 [facility] White blood cell countOrdere d By: Katarina Stevens on 04-05-2025 White blood cell count 10-25 SEEN /hpf 0-5 [facility] 36on 03-23-2025 36 Name of caller: [place] Contact phone number: [phone] Relationship to Patient: patient Provider: MD Anthony Practice: Interventional Pain Management Chief Complaint/Reason for Call: Patient called in requesting that her PT referral be sent to [facility] phone # [phone] Please be advised Best time of day caller can be reached: Any Patient advised that office/PCP has 24-48 business hours to return their call: N/A Normal [facility] Urine Cultureon 03-03-2025 [facility] Culture exhibits no growth. Normal [facility] Comment on above: Performed By: #### L 509.1000, L501.4021, L500.4050, L100.0100, L500.4100, L501.9520, L3100.5850, L501.55317 #### [facility] [address] [place], [address] Laboratory - Chemistry and C hemistry - challengeOrdered By: Katarina Stevens on 02-28-2025 Bilirubin Ql (U) Negative [facility] Glucose Ql (U) Negative [facility] Ketones Ql (U) Negative [facility] pH (U) 6.0 [pH] [facility] Specific gravity (U) [Rel density] 1.005 [facility] Urobilinogen (U) [Mass/Vol] 0.5567320 mg/dL [facility] Laboratory - Hematology and Cell countsOrdered By: Katarina Stevens on 02-28-2025 Hemoglobin Ql (U) Negative [facility] - Specimen inform ationOrdered By: Katarina Stevens on 02-28-2025 Clarity (U) Clear [facility] Color (U) YELLOW [facility] Laboratory - UrinalysisOrder ed By: Katarina Stevens on 02-28-2025 Nitrite Ql (U) Negative [facility] Protein Ql (U) Negative [facility] No Panel InformationOrdered By: Katarina Stevens on 02-28-2025 Urine Leukocytes Positive [facility] Urine Non-Hemolyzed Blood [facility] Urine cultureOrdered By: Kennedy Stevens on 02-28-2025 Bacteria identified Cx Nom (U) Culture exhibits no growth. [facility] Office Visiton 02-10-2025 Follow-up visit [id number] Milena Mcghee 1945 F Date Provider Department Center 02/10/2025 13625-TIMVZHCCHANTELL CRUZ [facility] PN None Family History Adopted: Yes Level of Service:05747 [place] OFFICE/OUTPATIENT ESTABLISHED MOD MDM 30 MIN Reason for Visit and Comments: Follow-up [011062] - Pt is here for a follow up from the second Bilateral L4-5 lumbar MBB which was done on 02/03/2025. Normal [facility] Progress Noteon 02-10-2025 Progress Note [facility] PAIN [facility]NAGEMENT [address] [facility] [address] Dept: [phone] Dept Chief Complaint Patient presents with Follow-up [...] Prior Pain Clinic -- Dr Morrison in [place] Chronic opiates -- No Previous Pain Procedures [...] capsule Take 6 (more content not included)... [facility] 36on 02-06-2025 36 Reached out to pt fo r relief information from the second Bilateral L3-5 lumbar MBB which was done on 02/03/2025. Follow up appointment has been scheduled in office. [facility] No Panel Informationon 02-03 There is [...] patient was discharged home in stable condition. [place] [address]on 01-27-2025 36 Office will contact patient to schedule [place] [address]on 5 36 Name of caller: [place] Contact phone number: [phone] Relationship to Patient: patient Provider: Dr Cruz Practice: Pain Management Chief Complaint/Reason for Call: Pt calling back to check on next injection. Pt states initial injection lasted about 8 hours. Please call back to advise. Best time of day caller can be reached: Any Patient advised that office/PCP has 24-48 business hours to return their call: Yes [facility] 3601-25-2025 36 Not sure what to hever e of that groin / leg pain, but the back pain in this case was 100% better for 5-6 hrs, so we can proceed with MBB #2 now under [address]oro [facility] 01-23-2025 36 Message released to patient as written. [...] relayed to the patient from encounter: N/A [facility] No Panel Informationon 01-20 There is no interpre tation needed for this exam. IMAGING Nursing Noteon 01-20-2025 Nursing Note Discharged to home . Local anesthesia, patient escorted to waiting room. . AVS and education reviewed with patient she verbalized understanding. All questions answered and patient denies dizziness or nausea. Denies any numbness or weakness, vital signs are stable. Patient valuables sent. [facility] Op Noteon 01-20-2025 Op Note OPERATIVE [...] was discharged home in stable condition. Normal [facility] Urine Cultureon 01-07-2025 URC Escherichia coli Stanley Count 11,000-25,000 Escherichia coli: REACTION Ampicillin Islt [...] TMP SMX Islt IRINEO <=20 S Normal [facility] Comment on above: Performed By: #### L 509.1000, L501.4021, L500.4050, L100.0100, L500.4100, L501.9520, L3100.5850, L501.47450 #### [facility] [place], [address] Laboratory - Chemistry and C hemistry - challengeOrdered By: Katarina Stevens on 01-04-2025 Bilirubin Ql (U) Negative [facility] Glucose Ql (U) Negative [facility] Ketones Ql (U) Negative [facility] pH (U) 5.5 [pH] [facility] Specific gravity (U) [Rel density] 1.025 [facility] Urobilinogen (U) [Mass/Vol] 0.8369517 mg/dL [facility] Laboratory - Hematology and Cell countsOrdered By: Katarina Stevens on 01-04-2025 Hemoglobin Ql (U) Trace [facility] - Specimen inform ationOrdered By: Katarina Stevens on 01-04-2025 Clarity (U) Clear [facility] Color (U) YELLOW [facility] Laboratory - UrinalysisOrder ed By: Katarina Stevens on 01-04-2025 Nitrite Ql (U) Negative [facility] No Panel InformationOrdered By: Katarina Stevens on 01-04-2025 Urine Leukocytes Positive [facility] Urine Non-Hemolyzed Blood [facility] Urine cultureOrdered By: Kennedy Stevens on 01-04-2025 Bacteria identified Cx Nom (U) Escherichia coli Abnormal [facility] Office Visiton 12-30-2024 Follow-up visit [id number] Milena Mcghee 1945 F Date Provider Department Center 12/30/2024 [id number]-OTDRWRGCHANTELL CRUZ [facility] PN None Family History Adopted: Yes Level of Service:90218 [place] OFFICE/OUTPATIENT ESTABLISHED MOD MDM 30 MIN Reason for Visit and Comments: Back Pain [12] Normal [facility] Progress Noteon 12-30-2024 Progress Note [facility] PAIN MANAGEMENT [address] [facility] [address] Dept: [phone] Dept Chief Complaint Patient presents with Back Pain SUBJECTIVE HPI: Milena Mcghee is a 79 y.o. year old here today for follow-up of chronic low back pain. She was last seen by ma back in 10/2023. Her back pain has [...] Prior Pain Clinic -- Dr Morrison in [place] Chronic opiates -- No Previous Pain Procedures [...] CATARACT SURGERY li (more content not included)... [facility] Op Noteon 12-26-2024 Op Note Operative Report NAME: Milena Mcghee : 1945 AGE: 79 y.o. SURGEON: Prema Garcia M.D. OPERATIVE EYE: left PREOPERATIVE DIAGNOSIS: 1. Nuclear sclerotic cataract. POSTOPERATIVE DIAGNOSIS: 1. Nuclear sclerotic cataract. OPERATION: Cataract extraction by phacoemulsification with placement of posterior chamber intraocular lens implant. MEAT SEAFOOD ASSOCIATE: See operating room record ACCOUNT COLLECTOR: See operating room record ANESTHESIA: Local with [...] Prema Garcia MD 12/26/24 9:32 AM Normal [facility] Urine Cultureon 12-11-2024 URC Escherichia coli Stanley Count 80,000-100,000 Escherichia coli: REACTION Ampicillin Islt [...] TMP SMX Islt IRINEO <=20 S Normal [facility] Comment on above: Performed By: #### L 509.1000, L501.4021, L500.4050, L100.0100, L500.4100, L501.9520, L3100.5850, L501.68746 #### [facility] [address] [place], [address] Laboratory - Chemistry and C hemistry - challengeOrdered By: Katarina Stevens on 12-08-2024 Bilirubin Ql (U) Negative [facility] Glucose Ql (U) Negative [facility] Ketones Ql (U) Negative [facility] pH (U) 5.5 [pH] [facility] Specific gravity (U) [Rel density] 1.020 [facility] Urobilinogen (U) [Mass/Vol] 0.3572604 mg/dL [facility] Laboratory - Hematology and Cell countsOrdered By: Katarina Stevens on 12-08-2024 Hemoglobin Ql (U) Trace [facility] - Specimen inform ationOrdered By: Katarina Stevens on 12-08-2024 Clarity (U) Clear [facility] Color (U) YELLOW [facility] Laboratory - UrinalysisOrder ed By: Katarina Stevens on 12-08-2024 Nitrite Ql (U) Negative [facility] Protein Ql (U) Negative [facility] No Panel InformationOrdered By: Katarina Stevens on 12-08-2024 Urine Leukocytes Positive [facility] Urine Non-Hemolyzed Blood [facility] Urine cultureOrdered By: Kennedy Stevens on 12-08-2024 Bacteria identified Cx Nom (U) Escherichia coli Abnormal [facility] Bacteria identified Cx Nom (U) Escherichia coli Abnormal [facility] 29on 11-21-2024 29 Addendum created 01/10 0912 by ANGIE Montgomery CRNA Flowsheet accepted Normal [facility] Op Noteon 11-21-2024 Op Note Operative Report NAME: Milena Mcghee : 1945 AGE: 79 y.o. SURGEON: Prema Garcia M.D. OPERATIVE EYE: right PREOPERATIVE DIAGNOSIS: 1. Nuclear sclerotic cataract. POSTOPERATIVE DIAGNOSIS: 1. Nuclear sclerotic cataract. OPERATION: Cataract extraction by phacoemulsification with placement of posterior chamber intraocular lens implant. MEAT SEAFOOD ASSOCIATE: See operating room record ACCOUNT COLLECTOR: See operating room record ANESTHESIA: Local with [...] Prema Garcia MD 11/21/24 8:35 AM Normal [facility] [id number] 11-14-2024 [id number] Medication List Accurate as of November 14, [...] your scheduled surgery time. Please bring your [facility] Surgical folder and medication list with you day of surgery. We encourage you to write down any questions you may have for the surgeon, anesthesiologist, or other members of the surgical team and bring it with you the day of surgery. Please bring photo ID and insurance information. Normal [facility] Progress Noteon 11-14-2024 Progress Note [facility] Mcghee : 1945 Primary Care Physician: KATARINA STEVENS The patient and/or family/surrogate voluntarily agreed to participate in ACP services. Patient?s cognitive capacity: Full Code Status: [x] [FULL CODE - Continue all advanced life support: CPR,intubation,invasive procedures] [_] [DNR-CCA - DO NOT do CPR, intubation] [_] [DNR-PAYROLL ACCOUNTING MANAGER - Comfort care only] [_] DNR form [...] Acute care solutions 11/14/2024, 12:20 PM Normal [facility] Urine Cultureon 10-01-2024 URC Below infection darion puri. Urine Culture Gram negative adis Stanley Count 1000-10,000 Normal [facility] Comment on above: Performed By: #### L 509.1000, L501.4021, L500.4050, L100.0100, L500.4100, L501.9520, L3100.5850, L501.75022 #### [facility] [address] [place], [address] Laboratory - Chemistry and C hemistry - challengeon 09-29-2024 Bilirubin Ql (U) Negative [facility] Glucose Ql (U) Negative [facility] Ketones Ql (U) Negative [facility] pH (U) 5.5 [pH] [facility] Urobilinogen (U) [Mass/Vol] 0.1890207 mg/dL [facility] Laboratory - Hematology and Cell countson 09-29-2024 Hemoglobin Ql (U) Negative [facility] Laboratory - Specimen inform ationon 09-29-2024 Clarity (U) Clear [facility] Color (U) YELLOW [facility] Laboratory - Urinalysison Nitrite Ql (U) Negative [facility] Protein Ql (U) Trace [facility] No Panel Informationon 09-29 Urine Leukocytes Negatve [facility] Urine Non-Hemolyzed Blood [facility] Urine cultureOrdered By: Kennedy Stevens on 09-29-2024 Bacteria identified Cx Nom (U) Negative Abnormal [facility] Bacteria identified Cx Nom (U) Negative Abnormal [facility] DBT Breast - bilateral scree ningon 07-06-2024 No mammographic evid ence of malignancy. [...] Electronically Signed Date/Time: 07/06/2024 9:52 AM EDT [facility] Patient Name: MILENA MCGHEE : 1945 Exam Date/Time: 07/06/2024 09:13 Procedure: BI MAMMOGRAM SCREENING TOMOSYNTHESIS BILATERAL Ordering Provider: STEVENS DORA Reason For Exam: This exam was performed at: [address] [facility] [address] PATIENT CANCER HISTORY: No Personal History of Cancer FAMILY CANCER HISTORY: No Family History of Cancer Image views: 2D Bilateral CC and MLO views were acquired. 3D Bilateral CC and MLO views were acquired. Images were reviewed with CAD. Markings on images: BB's = Nipples; skin lesions Open venetie = Palpable Line = Scar COMPARISON: 06/13/2022 and 06/08/2020 TISSUE DENSITY: BIRADS B - There are scattered areas of fibroglandular density. FINDINGS: No suspicious masses, architectural distortions or suspiciously clustered microcalcifications are identified. There is no evidence of skin thickening or nipple retraction. There are no significant changes when compared with prior studies. [facility] Winsome Sheth MD - 07/06/2024 Patient Name: MILENA MCGHEE : 1945 Exam Date/Time: 07/06/2024 09:13 Procedure: BI MAMMOGRAM SCREENING TOMOSYNTHESIS BILATERAL Ordering Provider: STEVENS DORA Reason For Exam: This exam was performed at: [facility] [address] [facility] [address] PATIENT CANCER HISTORY: No Personal History of Cancer FAMILY CANCER HISTORY: No Family History of Cancer Image views: 2D Bilateral CC and MLO views were acquired. 3D Bilateral CC and MLO views were acquired. Images were reviewed with CAD. Markings on images: BB's = Nipples; skin lesions Open venetie = Palpable Line = Scar COMPARISON: 06/13/2022 [...] Electronically Signed Date/Time: 07/06/2024 9:52 AM EDT [facility] Radiology Study observation (narrative) [facility] DBT Breast - bilateral scree ningOrdered By: Winsome Sheth on 07-06-2024 [employer] Work Phone: Urine Cultureon 06-30-2024 URC Culture exhibits no growth. Normal [facility] Comment on above: Performed By: #### L 509.1000, L501.4021, L500.4050, L100.0100, L500.4100, L501.9520, L3100.5850, L501.66442 #### [facility] [address] [place], [address] Absolute lymphocyte countOrd ered By: Katarina Stevens on 01-27-2024 Lymphocytes Auto (Unsp spec) [#/Vol] 2.22 10*3/uL 0.83-4.51 [facility] Automated lymphocyte count a s percentage of total leukocytesOrdered By: Katarina Stevens on 01-27-2024 Lymphocytes/100 WBC Auto (Unsp spec) 28.9 % 19-41 [facility] Basophil percentageOrdered B y: Katarina Stevens on 01-27-2024 Bilirubin [Mass/Vol] 0.90 mg/dL 0.20-1.00 [facility] Comment on above: For patients on eltr ombopag therapy, use of Dimension Mason TBIL is not recommended. Chloride [Moles/Vol] 110 mmol/L 98-107 [facility] Cholesterol [Mass/Vol] 169 mg/dL <200 [facility] Comment on above: <200 mg/dL Desirable 200-240 mg/dL Borderline >240 mg/dL High Risk Glucose [Mass/Vol] 128 mg/dL 74-106 [facility] Comment on above: Fasting Glucose resu lt greater than or equal to 126 mg/dL suggests DIABETES MELLITUS per A.D.A. criteria. Potassium [Moles/Vol] 4.0 mmol/L 3.5-5.1 [facility] Protein [Mass/Vol] 7.3 g/dL 6.4-8.2 [facility] Sodium [Moles/Vol] 141 mmol/L 136-145 [facility] Triglyceride [Mass/Vol] 285 mg/dL <199 [facility] Comment on above: The drugs N-Acetylcy steine and Metamizole may falsely depress this assay.Serum Triglycerides Reference Interval Normal <150 mg/dL Borderline high 150 - 199 mg/dL High 200 - 499 mg/dL Very High > or = 500 mg/dL Basophils/100 WBC (Bld) 0.8 % 0-1 [facility] Eosinophils/100 WBC (Bld) 4.0 % 0-5 [facility] Hemoglobin (Bld) [Mass/Vol] 13.4 g/dL 12.0-15.0 [facility] Monocytes/100 WBC (Bld) 6.4 % 0-10 [facility] Neutrophils (Bld) [#/Vol] 4.6 10*3/uL 2.0-7.7 [facility] Neutrophils/100 WBC (Bld) 59.6 % 47-70 [facility] WBC (Bld) [#/Vol] 7.7 10*3/uL 4.4-11.0 [facility] Determination of erythrocyte mean corpuscular volume (MCV)Ordered By: Katarina Stevens on 01-27-2024 MCV (RBC) [Entitic vol] 97.9 fL 81-99 [facility] Erythrocyte distribution wid th ratioOrdered By: Katarina Stevens on 01-27-2024 Erythrocyte distribution width (RBC) [Ratio] 12.4 % 11.6-14.6 [facility] Erythrocyte distribution wid th standard deviationOrdered By: Katarina Stevens on 01-27-2024 Erythrocyte distribution width (RBC) [Entitic vol] 44.5 fL 35.1-43.9 [facility] Hematocrit Auto (Bld) [Volum e fraction]Ordered By: Katarina Stevens on 01-27-2024 Hematocrit (Bld) [Volume fraction] 41.7 % 37-47 [facility] Immature granulocytes/100 WB C Auto (Bld)Ordered By: Katarina Stevens on 01-27-2024 Immature granulocytes/100 WBC (Bld) 0.300 % 0.0-0.9 [facility] Comment on above: IG% - Immature Granu locytes (promyelocytes, myelocytes and metamyelocytes) > 1% indicates that a LEFT SHIFT is Present. Laboratory - Chemistry and C hemistry - challengeOrdered By: Katarina Stevens on 01-27-2024 Albumin/Globulin [Mass ratio] 1.2 {ratio} 0.9-2.4 [facility] ALP [Catalytic activity/Vol] 177 U/L 45-117 [facility] ALT [Catalytic activity/Vol] 21 U/L 13-56 [facility] Cholesterol in HDL [Mass/Vol] 50 mg/dL >40 [facility] Comment on above: The drugs N-Acetylcy steine and Metamizole may falsely depress this assay. Reference Range HDL <40 mg/dL Low HDL Cholesterol HDL >or= 60 mg/dL High HDL Cholesterol Cholesterol in LDL [Mass/Vol] 62 mg/dL 0-130 [facility] CO2 [Moles/Vol] 26.0 mmol/L 21.0-32.0 [facility] Globulin (S) [Mass/Vol] 3.3 g/dL 2.2-4.2 [facility] Urea nitrogen/Creatinine [Mass ratio] 13.7 mg/mg 10-20 [facility] Laboratory - Hematology and Cell countsOrdered By: Katarina Stevens on 01-27-2024 MCH (RBC) [Entitic mass] 31.5 pg 27.0-32.0 [facility] MCHC (RBC) [Mass/Vol] 32.1 g/dL 32-36 [facility] Nucleated RBC/100 WBC (Bld) [Ratio] 0 % 0-5 [facility] Platelet mean volume (Bld) [Entitic vol] 12.2 fL 6.2-12.0 [facility] Platelets (Bld) [#/Vol] 222 10*3/uL 150-450 [facility] No Panel InformationOrdered By: Katarina Stevens on 01-27-2024 Estimated GFR (MDRD) Amer 45 mL/min >60 [facility] Comment on above: GFR Calc Estimated GFR (MDRD) Non-Af Amer 37 mL/min >60 [facility] Comment on above: Non- GFR Calc VLDL Cholesterol 57 mg/dL 5-40 [facility] Crystal-Rodríguez Virus Capsid Ag IgG Ab 225.0 U/mL 0.0-17.9 [facility] Comment on above: Negative <18.0 Equiv ocal 18.0 - 21.9 Positive >21.9 RBC Auto (Bld) [#/Vol]Ordere d By: Katarina Stevens on 01-27-2024 RBC (Bld) [#/Vol] 4.26 10*6/uL 4.2-5.4 [facility] Serum Crystal Rodríguez virus cap nuha IgM antibody assay (units/volume)Ordered By: Katarina Stevens on 01-27-2024 EBV capsid IgM Qn (S) [arb'U]/mL 0.0-35.9 [facility] Comment on above: Negative <36.0 Equiv ocal 36.0 - 43.9 Positive >43.9 Serum Crystal Rodríguez virus nuc lear IgG antibody assay (units/volume)Ordered By: Katarina Stevens on 01-27-2024 EBV nuclear IgG Qn (S) 216.0 U/mL 0.0-17.9 [facility] Comment on above: Negative <18.0 Equiv ocal 18.0 - 21.9 Positive >21.9 Serum or plasma calcium laz urement (mass/volume)Ordered By: Katarina Stevens on 01-27-2024 Calcium [Mass/Vol] 9.0 mg/dL 8.5-10.1 [facility] Serum or plasma creatinine m easurement (mass/volume)Ordered By: Katarina Stevens on 01-27-2024 Creatinine [Mass/Vol] 1.46 mg/dL 0.55-1.02 [facility] Comment on above: The validity of the calculated GFR & GFRAA in patients over 70 years has not been determined. Clinical correlation is essential. Serum or plasma urea nitroge n measurement (mass/volume)Ordered By: Katarina Stevens on 01-27-2024 Urea nitrogen [Mass/Vol] 20 mg/dL 7-18 [facility] Thin prep Papanicolaou smear with manual screeningOrdered By: Katarina Stevens on 01-27-2024 Thin prep Papanicolaou smear with manual screening 4.0 g/dL 3.2-5.0 [facility] Thin prep Papanicolaou smear with manual screening 18 U/L 15-37 [facility] Thin prep Papanicolaou smear with manual screening 5 5-15 [facility] Thin prep Papanicolaou smear with manual screening Comment . [facility] Comment on above: EBV Interpretation [place]: Antibody Present + Antibody Absent -Interpretation VCA-IgM [...] EBV never develop antibodies to EBNA.Performed at: [facility] [address] [id number] Director: Ilya Hein PhD, Phone: [phone] Culture, urineOrdered By: Do ra Stevens on 10-05-2023 Bacteria identified Cx Nom (U) Culture exhibits no growth. [facility] Bacteria identified Cx Nom (U) Culture exhibits no growth. [facility] Laboratory - Chemistry and C hemistry - challengeon 10-05-2023 Bilirubin Ql (U) Negative [facility] Glucose Ql (U) Negative [facility] Ketones Ql (U) Negative [facility] pH (U) 5.5 [pH] [facility] Specific gravity (U) [Rel density] 1.010 [facility] Urobilinogen (U) [Mass/Vol] 0.6649979 mg/dL [facility] Laboratory - Hematology and Cell countson 10-05-2023 Hemoglobin Ql (U) Hemolyzed [facility] Laboratory - Specimen inform ationon 10-05-2023 Clarity (U) Cloudy [facility] Color (U) YULIYA [facility] Laboratory - Urinalysison Nitrite Ql (U) Negative [facility] Protein Ql (U) Negative [facility] No Panel Informationon 10-05 Urine Leukocytes Positive [facility] Urine Non-Hemolyzed Blood Trace [facility] Laboratory - Chemistry and C hemistry - challengeon 09-09-2023 Bilirubin Ql (U) Negative [facility] Glucose Ql (U) Negative [facility] Ketones Ql (U) Negative [facility] pH (U) 5.5 [pH] [facility] Specific gravity (U) [Rel density] 1.030 [facility] Urobilinogen (U) [Mass/Vol] 0.3810977 mg/dL [facility] Laboratory - Hematology and Cell countson 09-09-2023 Hemoglobin Ql (U) Trace [facility] Laboratory - Specimen inform ationon 09-09-2023 Clarity (U) Turbid [facility] Color (U) Yellow [facility] Laboratory - Urinalysison Nitrite Ql (U) Negative [facility] Protein Ql (U) Negative [facility] No Panel Informationon 09-09 Urine Leukocytes Negatve [facility] Urine Non-Hemolyzed Blood [facility] Culture, urineOrdered By: Do ra Stevens on 09-08-2023 Bacteria identified Cx Nom (U) Positive [facility] Nuclear EXERCISE stress test with myocardial perfusionOrdered By: Erin Saunders on 08-11-2023 Angina Index 0 [facility] [employer] Work Phone: Baseline Diastolic BP 88 mmHg [facility] Work Phone: Baseline HR 75 bpm [facility] [employer] Work Phone: Baseline Systolic BP 148 mmHg [facility] Work Phone: Cosme Treadmill Score 5 [facility] Work Phone: Exercise Duration Seconds 40 sec [facility] [employer] Work Phone: Exercise Duration Time 4 min [facility] Work Phone: Nuc Stress Diastolic Volume 55 mL [facility] [employer] Work Phone: Nuc Stress EF 75 % [facility] [employer] Work Phone: Nuc Stress Systolic Volume 14 mL [facility] [employer] Work Phone: Oxygen saturation in Blood 97 % [facility] [employer] Work Phone: Recovery Stage 1 Duration 1 min:sec [facility] [employer] Work Phone: Recovery Stage 1 HR 130 bpm [facility] [employer] Work Phone: Recovery Stage 2 BP 174/97 mmHg [facility] [employer] Work Phone: Recovery Stage 2 Duration 2 min:sec [facility] [employer] Work Phone: Recovery Stage 2 HR 107 bpm [facility] [employer] Work Phone: Recovery Stage 3 BP 160/85 mmHg [facility] [employer] Work Phone: Recovery Stage 3 Duration 2 min:sec [facility] [employer] Work Phone: Recovery Stage 3 HR 93 bpm [facility] [employer] Work Phone: Recovery Stage 4 BP 155/80 mmHg [facility] [employer] Work Phone: Recovery Stage 4 Duration 2 min:sec [facility] [employer] Work Phone: Recovery Stage 4 HR 85 bpm [facility] [employer] Work Phone: Stress Diastolic BP 70 mmHg [facility] [employer] Work Phone: Stress Estimated Workload 6.6 METS [facility] [employer] Work Phone: Stress Peak HR 144 bpm [employer] Phone: Stress Percent HR Achieved 101 % [employer] Phone: Stress Rate Pressure Product 22656 bpm*mmHg [employer] Phone: Stress ST Depression 0 mm [employer] Phone: Stress Stage 1 BP 152/80 mmHg [employer] Phone: Stress Stage 1 Duration 3 min:sec [employer] Phone: Stress Stage 1 HR 115 bpm [employer] Phone: Stress Stage 2 BP 162/70 mmHg [employer] Phone: Stress Stage 2 Duration 1 min 40 sec min:sec [employer] Phone: Stress Stage 2 HR 144 bpm [employer] Phone: Stress Systolic BP 162 mmHg [employer] Phone: Stress Target HR 143 bpm [employer] Phone: TID 1.03 [employer] Phone: Nuclear EXERCISE stress test with myocardial [...] T-abnormality. Low voltage -possible pulmonary disease. ABNORMAL [facility] [employer] Alkaline phosphatase, isoenz [facility] 06-07-2023 ALP [Catalytic activity/Vol] 141 U/L 37 - 153 U/L [employer] ALP Bone [Catalytic fraction] 54 % 28 - 66 % [facility] [facility] ALP Intest [Catalytic fraction] 7 % 1 - 24 % [facility] ALP Isos Jassi [Interp] NO RESULT [facility] Comment on above: Test Performed by Angie Augustine, [employer] [facility] [address] [place], [place] Chris Montilla M.D., Ph.D., Director of Laboratories , CLIA [id number] ALP Liver [Catalytic fraction] 39 % 25 - 69 % [facility] ALP Macrohepatic [Catalytic fraction] 0 % NINF - 0 % [facility] ALP Plac [Catalytic fraction] 0 % NINF - 0 % [facility] ALP [Catalytic activity/Vol] on 05-20-2023 Interpretation and review of laboratory results Abnormal [facility] Alkaline phosphataseon 05-20 ALP [Catalytic activity/Vol] 158 U/L High 38 - 126 U/L [facility] US Abdomen limitedon 023 The etiology of the symptoms is not certain. Status post cholecystectomy. Report Dictated on Electronically Signed By: Markell Medina MD Electronically Signed Date/Time: 05/20/2023 12:55 PM EDT [facility] Patient Name: MILENA MCGHEE : 1945 Exam Date/Time: 05/20/2023 09:44 Procedure: US ABDOMEN LIMITED Ordering Provider: LARA RICHARD Reason For Exam: R74.0, R74.08 Indication: Right upper quadrant pain. FINDINGS: The liver is unremarkable. Gallbladder absent. Common duct normal 6.1 mm. Pancreas right kidney aorta IVC unremarkable as seen. The right kidney measures 9.6 cm. [facility] Markell Medina MD - 05/20/2023 Patient [...] Electronically Signed Date/Time: 05/20/2023 12:55 PM EDT [facility] Radiology Study observation (narrative) [facility] US Abdomen limitedOrdered By : Markell Medina on 05-20-2023 [employer] Phone: Absolute lymphocyte countOrd ered By: Katarina Stevens on 04-16-2023 Lymphocytes Auto (Unsp spec) [#/Vol] 2.43 10*3/uL 0.83-4.51 [facility] Basophil percentageOrdered B y: Katarina Stevens on 04-16-2023 Basophils/100 WBC (Bld) 0.9 % 0-1 [facility] Bilirubin [Mass/Vol] 0.60 mg/dL 0.20-1.00 [facility] Comment on above: For patients on eltr ombopag therapy, use of Dimension Mason TBIL is not recommended. Chloride [Moles/Vol] 106 mmol/L 98-107 [facility] Eosinophils/100 WBC (Bld) 4.2 % 0-5 [facility] Glucose [Mass/Vol] 123 mg/dL 74-106 [facility] Comment on above: Fasting Glucose resu lt from 100 to 125 mg/dL suggests IMPAIRED HOMEOSTASIS per A.D.A. criteria. Neutrophils (Bld) [#/Vol] 4.4 10*3/uL 2.0-7.7 [facility] Neutrophils/100 WBC (Bld) 55.9 % 47-70 [facility] Potassium [Moles/Vol] 4.1 mmol/L 3.5-5.1 [facility] Protein [Mass/Vol] 7.4 g/dL 6.4-8.2 [facility] Sodium [Moles/Vol] 141 mmol/L 136-145 [facility] WBC (Bld) [#/Vol] 7.9 10*3/uL 4.4-11.0 [facility] Blood erythrocytes count (nu mber/volume)Ordered By: Katarina Stevens on 04-16-2023 RBC (Bld) [#/Vol] 4.27 10*6/uL 4.2-5.4 [facility] Blood hemoglobin measurement (mass/volume)Ordered By: Katarina Stevens on 04-16-2023 Hemoglobin (Bld) [Mass/Vol] 13.6 g/dL 12.0-15.0 [facility] Blood lymphocytes/100 leukoc ytesOrdered By: Katarina Stevens on 04-16-2023 Lymphocytes/100 WBC (Bld) 30.8 % 19-41 [facility] Blood monocytes/100 leukocyt esOrdered By: Katarina Stevens on 04-16-2023 Monocytes/100 WBC (Bld) 7.9 % 0-10 [facility] Blood platelet mean volumeOr dered By: Katarina Stevens on 04-16-2023 Platelet mean volume (Bld) [Entitic vol] 11.4 fL 6.2-12.0 [facility] Culture, urineOrdered By: Do ra Stevens on 04-16-2023 Bacteria identified Cx Nom (U) Mixed Gram Pos & Gram Neg Org [facility] Determination of erythrocyte mean corpuscular volume (MCV)Ordered By: Katarina Stevens on 04-16-2023 MCV (RBC) [Entitic vol] 97.0 fL 81-99 [facility] Hematocrit Auto (Bld) [Volum e fraction]Ordered By: Katarina Stevens on 04-16-2023 Hematocrit (Bld) [Volume fraction] 41.4 % 37-47 [facility] Laboratory - Chemistry and C hemistry - challengeon 04-16-2023 Bilirubin Ql (U) Negative [facility] Glucose Ql (U) Negative [facility] Ketones Ql (U) Negative [facility] pH (U) 5.5 [pH] [facility] Specific gravity (U) [Rel density] 1.025 [facility] Urobilinogen (U) [Mass/Vol] 0.9738084 mg/dL [facility] Laboratory - Chemistry and C hemistry - challengeOrdered By: Katarina Stevens on 04-16-2023 ALP [Catalytic activity/Vol] 198 U/L 45-117 [facility] ALT [Catalytic activity/Vol] 19 U/L 13-56 [facility] CO2 [Moles/Vol] 27.0 mmol/L 21.0-32.0 [facility] Globulin (S) [Mass/Vol] 3.6 g/dL 2.2-4.2 [facility] Urea nitrogen/Creatinine [Mass ratio] 15.0 mg/mg 10-20 [facility] Laboratory - Hematology and Cell countson 04-16-2023 Hemoglobin Ql (U) Negative [facility] Laboratory - Hematology and Cell countsOrdered By: Katarina Stevens on 04-16-2023 Erythrocyte distribution width (RBC) [Entitic vol] 43.3 fL 35.1-43.9 [facility] Erythrocyte distribution width (RBC) [Ratio] 12.1 % 11.6-14.6 [facility] Immature granulocytes/100 WBC (Bld) 0.300 % 0.0-0.9 [facility] Comment on above: IG% - Immature Granu locytes (promyelocytes, myelocytes and metamyelocytes) > 1% indicates that a LEFT SHIFT is Present. MCH (RBC) [Entitic mass] 31.9 pg 27.0-32.0 [facility] Nucleated RBC/100 WBC (Bld) [Ratio] 0 % 0-5 [facility] Laboratory - Specimen inform ationon 04-16-2023 Clarity (U) Clear [facility] Color (U) YELLOW [facility] Laboratory - Urinalysison Nitrite Ql (U) Negative [facility] Protein Ql (U) Negative [facility] MCHC Auto (RBC) [Mass/Vol]Or dered By: Katarina Stevens on 04-16-2023 MCHC (RBC) [Mass/Vol] 32.9 g/dL 32-36 [facility] No Panel Informationon 04-16 Urine Leukocytes Negatve [facility] Urine Non-Hemolyzed Blood [facility] No Panel InformationOrdered By: Katarina Stevens on 04-16-2023 Estimated GFR (MDRD) Amer 50 mL/min >60 [facility] Comment on above: GFR Calc Estimated GFR (MDRD) Non-Af Amer 41 mL/min >60 [facility] Comment on above: Non- GFR Calc Platelets bldOrdered By: Kennedy Stevens on 04-16-2023 Platelets (Bld) [#/Vol] 226 10*3/uL 150-450 [facility] Serum or plasma albumin laz urement (mass/volume)Ordered By: Katarina Stevens on 04-16-2023 Albumin [Mass/Vol] 3.8 g/dL 3.2-5.0 [facility] Serum or plasma albumin/glob ulin mass ratioOrdered By: Katarina Stevens on 04-16-2023 Albumin/Globulin [Mass ratio] 1.1 {ratio} 0.9-2.4 [facility] Serum or plasma calcium laz urement (mass/volume)Ordered By: Katarina Stevens on 04-16-2023 Calcium [Mass/Vol] 9.3 mg/dL 8.5-10.1 [facility] Serum or plasma creatinine m easurement (mass/volume)Ordered By: Katarina Stevens on 04-16-2023 Creatinine [Mass/Vol] 1.33 mg/dL 0.55-1.02 [facility] Comment on above: The validity of the calculated GFR & GFRAA in patients over 70 years has not been determined. Clinical correlation is essential. Serum or plasma urea nitroge n measurement (mass/volume)Ordered By: Katarina Stevens on 04-16-2023 Urea nitrogen [Mass/Vol] 20 mg/dL 7-18 [facility] Thin prep Papanicolaou smear with manual screeningOrdered By: Katarina Stevens on 04-16-2023 Thin prep Papanicolaou smear with manual screening 16 U/L 15-37 [facility] Thin prep Papanicolaou smear with manual screening 8 5-15 [facility] Absolute lymphocyte countOrd ered By: Katarina Stevens on 03-30-2023 Lymphocytes Auto (Unsp spec) [#/Vol] 2.17 10*3/uL 0.83-4.51 [facility] Basophil percentageOrdered B y: Katarina Stevens on 03-30-2023 Basophils/100 WBC (Bld) 0.7 % 0-1 [facility] Bilirubin [Mass/Vol] 0.70 mg/dL 0.20-1.00 [facility] Comment on above: For patients on eltr ombopag therapy, use of Dimension Mason TBIL is not recommended. Chloride [Moles/Vol] 107 mmol/L 98-107 [facility] Eosinophils/100 WBC (Bld) 4.1 % 0-5 [facility] Glucose [Mass/Vol] 109 mg/dL 74-106 [facility] Comment on above: Fasting Glucose resu lt from 100 to 125 mg/dL suggests IMPAIRED HOMEOSTASIS per A.D.A. criteria. Neutrophils (Bld) [#/Vol] 4.2 10*3/uL 2.0-7.7 [facility] Neutrophils/100 WBC (Bld) 56.2 % 47-70 [facility] Potassium [Moles/Vol] 4.2 mmol/L 3.5-5.1 [facility] Protein [Mass/Vol] 7.3 g/dL 6.4-8.2 [facility] Sodium [Moles/Vol] 140 mmol/L 136-145 [facility] WBC (Bld) [#/Vol] 7.6 10*3/uL 4.4-11.0 [facility] Blood erythrocytes count (nu mber/volume)Ordered By: Katarina Stevens on 03-30-2023 RBC (Bld) [#/Vol] 4.05 10*6/uL 4.2-5.4 [facility] Blood hemoglobin measurement (mass/volume)Ordered By: Katarina Stevens on 03-30-2023 Hemoglobin (Bld) [Mass/Vol] 12.9 g/dL 12.0-15.0 [facility] Blood lymphocytes/100 leukoc ytesOrdered By: Katarina Stevens on 03-30-2023 Lymphocytes/100 WBC (Bld) 28.7 % 19-41 [facility] Blood monocytes/100 leukocyt esOrdered By: Katarina Stevens on 03-30-2023 Monocytes/100 WBC (Bld) 9.9 % 0-10 [facility] Blood platelet mean volumeOr dered By: Katarina Stevens on 03-30-2023 Platelet mean volume (Bld) [Entitic vol] 11.7 fL 6.2-12.0 [facility] Determination of erythrocyte mean corpuscular volume (MCV)Ordered By: Katarina Stevens on 03-30-2023 MCV (RBC) [Entitic vol] 98.8 fL 81-99 [facility] Hematocrit Auto (Bld) [Volum e fraction]Ordered By: Katarina Stevens on 03-30-2023 Hematocrit (Bld) [Volume fraction] 40.0 % 37-47 [facility] Laboratory - Chemistry and C hemistry - challengeOrdered By: Katarina Stevens on 03-30-2023 ALP [Catalytic activity/Vol] 191 U/L 45-117 [facility] ALT [Catalytic activity/Vol] 15 U/L 13-56 [facility] CO2 [Moles/Vol] 27.0 mmol/L 21.0-32.0 [facility] Globulin (S) [Mass/Vol] 3.6 g/dL 2.2-4.2 [facility] Urea nitrogen/Creatinine [Mass ratio] 17.3 mg/mg 10-20 [facility] Laboratory - Hematology and Cell countsOrdered By: Katarina Stevens on 03-30-2023 Erythrocyte distribution width (RBC) [Entitic vol] 43.7 fL 35.1-43.9 [facility] Erythrocyte distribution width (RBC) [Ratio] 11.9 % 11.6-14.6 [facility] Immature granulocytes/100 WBC (Bld) 0.400 % 0.0-0.9 [facility] Comment on above: IG% - Immature Granu locytes (promyelocytes, myelocytes and metamyelocytes) > 1% indicates that a LEFT SHIFT is Present. MCH (RBC) [Entitic mass] 31.9 pg 27.0-32.0 [facility] Nucleated RBC/100 WBC (Bld) [Ratio] 0 % 0-5 [facility] MCHC Auto (RBC) [Mass/Vol]Or dered By: Katarina Stevens on 03-30-2023 MCHC (RBC) [Mass/Vol] 32.3 g/dL 32-36 [facility] No Panel InformationOrdered By: Katarina Stevens on 03-30-2023 Estimated GFR (MDRD) Amer 62 mL/min >60 [facility] Comment on above: GFR Calc Estimated GFR (MDRD) Non-Af Amer 51 mL/min >60 [facility] Comment on above: Non- GFR Calc Parathyroid Hormone (Intact) 51.4 pg/mL 18.4-80.1 [facility] Vitamin D 25-Hydroxy 38.0 ng/mL [facility] Comment on above: Vitamin D 25(OH) Sta tus Range Deficiency <20 ng/mL (50nmol/L) Insufficiency 20 - 30 ng/mL (50 - 75 nmol/L) Sufficiency 30 - 100 ng/mL (75 - 250 nmol/L) Toxicity >100 ng/mL (>250 nmol/L) Platelets bldOrdered By: Kennedy Stevens on 03-30-2023 Platelets (Bld) [#/Vol] 205 10*3/uL 150-450 [facility] Serum or plasma albumin laz urement (mass/volume)Ordered By: Katarina Stevens on 03-30-2023 Albumin [Mass/Vol] 3.7 g/dL 3.2-5.0 [facility] Serum or plasma albumin/glob ulin mass ratioOrdered By: Katarina Stevens on 03-30-2023 Albumin/Globulin [Mass ratio] 1.0 {ratio} 0.9-2.4 [facility] Serum or plasma calcium laz urement (mass/volume)Ordered By: Katarina Stevens on 03-30-2023 Calcium [Mass/Vol] 9.4 mg/dL 8.5-10.1 [facility] Serum or plasma creatinine m easurement (mass/volume)Ordered By: Katarina Stevens on 03-30-2023 Creatinine [Mass/Vol] 1.10 mg/dL 0.55-1.02 [facility] Comment on above: The validity of the calculated GFR & GFRAA in patients over 70 years has not been determined. Clinical correlation is essential. Serum or plasma urea nitroge n measurement (mass/volume)Ordered By: Katarina Stevens on 03-30-2023 Urea nitrogen [Mass/Vol] 19 mg/dL 7-18 [facility] Thin prep Papanicolaou smear with manual screeningOrdered By: Katarina Stevens on 03-30-2023 Thin prep Papanicolaou smear with manual screening 12 U/L 15-37 [facility] Thin prep Papanicolaou smear with manual screening 6 5-15 [facility] Thin prep Papanicolaou smear with manual screening 6.8 mg/L NO RANGE EST. [facility] Urine creatinine measurement (mass/volume)Ordered By: Katarina Stevens on 03-30-2023 Creatinine (U) [Mass/Vol] 77.00 mg/dL NO RANGE EST. [facility] Urine protein measurement (m ass/volume)Ordered By: Katarina Stevens on 03-30-2023 Protein (U) [Mass/Vol] 7.2 mg/dL 0.0-11.8 [facility] Urine protein/creatinine mas s ratioOrdered By: Katarina Stevens on 03-30-2023 Protein/Creatinine (U) [Mass ratio] 94 mg/g CRE 0-200 [facility] Absolute lymphocyte countOrd ered By: Katarina Stevens on 02-25-2023 Lymphocytes Auto (Unsp spec) [#/Vol] 1.64 10*3/uL 0.83-4.51 [facility] Basophil percentageOrdered B y: Katarina Stevens on 02-25-2023 Basophils/100 WBC (Bld) 0.6 % 0-1 [facility] Bilirubin [Mass/Vol] 0.60 mg/dL 0.20-1.00 [facility] Comment on above: For patients on eltr ombopag therapy, use of Dimension Mason TBIL is not recommended. Chloride [Moles/Vol] 107 mmol/L 98-107 [facility] Eosinophils/100 WBC (Bld) 4.0 % 0-5 [facility] Glucose [Mass/Vol] 90 mg/dL 74-106 [facility] Neutrophils (Bld) [#/Vol] 4.4 10*3/uL 2.0-7.7 [facility] Neutrophils/100 WBC (Bld) 63.1 % 47-70 [facility] Potassium [Moles/Vol] 4.0 mmol/L 3.5-5.1 [facility] Protein [Mass/Vol] 7.2 g/dL 6.4-8.2 [facility] Sodium [Moles/Vol] 143 mmol/L 136-145 [facility] WBC (Bld) [#/Vol] 7.0 10*3/uL 4.4-11.0 [facility] Blood erythrocytes count (nu mber/volume)Ordered By: Katarina Stevens on 02-25-2023 RBC (Bld) [#/Vol] 4.18 10*6/uL 4.2-5.4 [facility] Blood hemoglobin measurement (mass/volume)Ordered By: Katarina Stevens on 02-25-2023 Hemoglobin (Bld) [Mass/Vol] 13.4 g/dL 12.0-15.0 [facility] Blood lymphocytes/100 leukoc ytesOrdered By: Katarina Stevens on 02-25-2023 Lymphocytes/100 WBC (Bld) 23.4 % 19-41 [facility] Blood monocytes/100 leukocyt esOrdered By: Katarina Stevens on 02-25-2023 Monocytes/100 WBC (Bld) 8.6 % 0-10 [facility] Blood platelet mean volumeOr dered By: Katarina Stevens on 02-25-2023 Platelet mean volume (Bld) [Entitic vol] 11.3 fL 6.2-12.0 [facility] Determination of erythrocyte mean corpuscular volume (MCV)Ordered By: Katarina Stevens on 02-25-2023 MCV (RBC) [Entitic vol] 98.6 fL 81-99 [facility] Hematocrit Auto (Bld) [Volum e fraction]Ordered By: Katarina Stevens on 02-25-2023 Hematocrit (Bld) [Volume fraction] 41.2 % 37-47 [facility] Laboratory - Chemistry and C hemistry - challengeOrdered By: Katarina Stevens on 02-25-2023 ALP [Catalytic activity/Vol] 131 U/L 45-117 [facility] ALT [Catalytic activity/Vol] 25 U/L 13-56 [facility] CO2 [Moles/Vol] 28.0 mmol/L 21.0-32.0 [facility] [facility] (S) [Mass/Vol] 3.5 g/dL 2.2-4.2 [facility] Urea nitrogen/Creatinine [Mass ratio] 12.5 mg/mg 10-20 [facility] Laboratory - Hematology and Cell countsOrdered By: Katarina Stevens on 02-25-2023 Erythrocyte distribution width (RBC) [Entitic vol] 44.4 fL 35.1-43.9 [facility] Erythrocyte distribution width (RBC) [Ratio] 12.3 % 11.6-14.6 [facility] Immature granulocytes/100 WBC (Bld) 0.300 % 0.0-0.9 [facility] Comment on above: IG% - Immature Granu locytes (promyelocytes, myelocytes and metamyelocytes) > 1% indicates that a LEFT SHIFT is Present. MCH (RBC) [Entitic mass] 32.1 pg 27.0-32.0 [facility] Nucleated RBC/100 WBC (Bld) [Ratio] 0 % 0-[facility] ([facility] [Mass/Vol]Or dered By: Katarina Stevens on 02-25-2023 MCHC (RBC) [Mass/Vol] 32.5 g/dL 32-36 [facility] No Panel InformationOrdered By: Katarina Stevens on 02-25-2023 Estimated GFR (MDRD) Amer 56 mL/min >60 [facility] Comment on above: GFR Calc Estimated GFR (MDRD) Non-Af Amer 46 mL/min >60 [facility] Comment on above: Non- GFR Calc Platelets bldOrdered By: Kennedy Stevens on 02-25-2023 Platelets (Bld) [#/Vol] 213 10*3/uL 150-450 [facility] Serum or plasma albumin laz urement (mass/volume)Ordered By: Katarina Stevens on 02-25-2023 Albumin [Mass/Vol] 3.7 g/dL 3.2-5.0 [facility] Serum or plasma albumin/glob ulin mass ratioOrdered By: Katarina Stevens on 02-25-2023 Albumin/Globulin [Mass ratio] 1.1 {ratio} 0.9-2.4 [facility] Serum or plasma calcitriol m easurement (mass/volume)Ordered By: Katarina Stevens on 02-25-2023 1,25-dihydroxyvitamin D3 [Mass/Vol] 43.8 pg/mL 24.8-81.5 [facility] Comment on above: Performed at: [address] [id number] Director: Gregg Amezcua MD, Phone: [phone] Serum or plasma calcium laz urement (mass/volume)Ordered By: Katarina Stevens on 02-25-2023 Calcium [Mass/Vol] 9.2 mg/dL 8.5-10.1 [facility] Serum or plasma creatinine m easurement (mass/volume)Ordered By: Katarina Stevens on 02-25-2023 Creatinine [Mass/Vol] 1.20 mg/dL 0.55-1.02 [facility] Comment on above: The validity of the calculated GFR & GFRAA in patients over 70 years has not been determined. Clinical correlation is essential. Serum or plasma urea nitroge n measurement (mass/volume)Ordered By: Katarina Stevens on 02-25-2023 Urea nitrogen [Mass/Vol] 15 mg/dL 7-18 [facility] Thin prep Papanicolaou smear with manual screeningOrdered By: Katarina Stevens on 02-25-2023 Thin prep Papanicolaou smear with manual screening 14 U/L 15-37 [facility] Thin prep Papanicolaou smear with manual screening 8 5-15 [facility] Absolute lymphocyte countOrd ered By: Katarina Stevens on 02-02-2023 Lymphocytes Auto (Unsp spec) [#/Vol] 2.14 10*3/uL 0.83-4.51 [facility] Basophil percentageOrdered B y: Katarina Stevens on 02-02-2023 Basophils/100 WBC (Bld) 0.6 % 0-1 [facility] Bilirubin [Mass/Vol] 0.50 mg/dL 0.20-1.00 [facility] Comment on above: For patients on eltr ombopag therapy, use of Dimension Mason TBIL is not recommended. Chloride [Moles/Vol] 111 mmol/L 98-107 [facility] Eosinophils/100 WBC (Bld) 4.1 % 0-5 [facility] Glucose [Mass/Vol] 114 mg/dL 74-106 [facility] Comment on above: Fasting Glucose resu lt from 100 to 125 mg/dL suggests IMPAIRED HOMEOSTASIS per A.D.A. criteria. Neutrophils (Bld) [#/Vol] 3.4 10*3/uL 2.0-7.7 [facility] Neutrophils/100 WBC (Bld) 53.6 % 47-70 [facility] Potassium [Moles/Vol] 4.4 mmol/L 3.5-5.1 [facility] Protein [Mass/Vol] 6.9 g/dL 6.4-8.2 [facility] Sodium [Moles/Vol] 141 mmol/L 136-145 [facility] WBC (Bld) [#/Vol] 6.4 10*3/uL 4.4-11.0 [facility] Blood erythrocytes count (nu mber/volume)Ordered By: Katarina Stevens on 02-02-2023 RBC (Bld) [#/Vol] 4.17 10*6/uL 4.2-5.4 [facility] Blood hemoglobin measurement (mass/volume)Ordered By: Katarina Stevens on 02-02-2023 Hemoglobin (Bld) [Mass/Vol] 13.2 g/dL 12.0-15.0 [facility] Blood lymphocytes/100 leukoc ytesOrdered By: Katarina Stevens on 02-02-2023 Lymphocytes/100 WBC (Bld) 33.4 % 19-41 [facility] Blood monocytes/100 leukocyt esOrdered By: Katarina Stevens on 02-02-2023 Monocytes/100 WBC (Bld) 8.1 % 0-10 [facility] Blood platelet mean volumeOr dered By: Katarina Stevens on 02-02-2023 Platelet mean volume (Bld) [Entitic vol] 12.0 fL 6.2-12.0 [facility] Determination of erythrocyte mean corpuscular volume (MCV)Ordered By: Katarina Stevens on 02-02-2023 MCV (RBC) [Entitic vol] 99.8 fL 81-99 [facility] Hematocrit Auto (Bld) [Volum e fraction]Ordered By: Katarina Stevens on 02-02-2023 Hematocrit (Bld) [Volume fraction] 41.6 % 37-47 [facility] Laboratory - Chemistry and C hemistry - challengeOrdered By: Katarina Stevens on 02-02-2023 ALP [Catalytic activity/Vol] 118 U/L 45-117 [facility] ALT [Catalytic activity/Vol] 25 U/L 13-56 [facility] CO2 [Moles/Vol] 29.0 mmol/L 21.0-32.0 [facility] Globulin (S) [Mass/Vol] 3.2 g/dL 2.2-4.2 [facility] Urea nitrogen/Creatinine [Mass ratio] 14.3 mg/mg 10-20 [facility] Laboratory - Hematology and Cell countsOrdered By: Katarina Stevens on 02-02-2023 Erythrocyte distribution width (RBC) [Entitic vol] 45.2 fL 35.1-43.9 [facility] Erythrocyte distribution width (RBC) [Ratio] 12.3 % 11.6-14.6 [facility] Immature granulocytes/100 WBC (Bld) 0.200 % 0.0-0.9 [facility] Comment on above: IG% - Immature Granu locytes (promyelocytes, myelocytes and metamyelocytes) > 1% indicates that a LEFT SHIFT is Present. MCH (RBC) [Entitic mass] 31.7 pg 27.0-32.0 [facility] Nucleated RBC/100 WBC (Bld) [Ratio] 0 % 0-5 [facility] MCHC Auto (RBC) [Mass/Vol]Or dered By: Katarina Stevens on 02-02-2023 MCHC (RBC) [Mass/Vol] 31.7 g/dL 32-36 [facility] No Panel InformationOrdered By: Katarina Stevens on 02-02-2023 C-Reactive Protein High Sensitivity 0.79 mg/L <3.00 [facility] Comment on above: Low Relative Risk of CVD <1.0 mg/L Average Relative Risk of CVD 1.0 - 3.0 mg/L High Relative Risk of CVD >3.0 mg/L Estimated GFR (MDRD) Amer 47 mL/min >60 [facility] Comment on above: GFR Calc Estimated GFR (MDRD) Non-Af Amer 39 mL/min >60 [facility] Comment on above: Non- GFR Calc Thyroid Stimulating Hormone (TSH) 1.76 uIU/mL 0.358-3.74 [facility] Troponin I High Sensitivity 4 pg/mL 3.0-54.0 [facility] Comment on above: Please Note: New Katerina t Units and Gender Specific Reference Ranges. For more information see Policy Stat Procedure Mason High Sensitivity Troponin (TNIH) and attachments. Platelets bldOrdered By: Kennedy Stevens on 02-02-2023 Platelets (Bld) [#/Vol] 192 10*3/uL 150-450 [facility] Serum Crystal Rodríguez virus cap nuha IgG antibody assay (units/volume)Ordered By: Katarina Stevens on 02-02-2023 EBV capsid IgG Qn (S) 222.0 [arb'U]/mL 0.0-17.9 [facility] Comment on above: Negative <18.0 Equiv ocal 18.0 - 21.9 Positive >21.9 Serum Crystal Rodríguez virus cap nuha IgM antibody assay (units/volume)Ordered By: Katarina Stevens on 02-02-2023 EBV capsid IgM Qn (S) [arb'U]/mL 0.0-35.9 [facility] Comment on above: Negative <36.0 Equiv ocal 36.0 - 43.9 Positive >43.9 Serum Crystal Rodríguez virus nuc lear IgG antibody assay (units/volume)Ordered By: Katarina Stevens on 02-02-2023 EBV nuclear IgG Qn (S) 151.0 U/mL 0.0-17.9 [facility] Comment on above: Negative <18.0 Equiv ocal 18.0 - 21.9 Positive >21.9 Serum or plasma albumin laz urement (mass/volume)Ordered By: Katarina Stevens on 02-02-2023 Albumin [Mass/Vol] 3.7 g/dL 3.2-5.0 [facility] Serum or plasma albumin/glob ulin mass ratioOrdered By: Katarina Stevens on 02-02-2023 Albumin/Globulin [Mass ratio] 1.2 {ratio} 0.9-2.4 [facility] Serum or plasma calcium laz urement (mass/volume)Ordered By: Katarina Stevens on 02-02-2023 Calcium [Mass/Vol] 9.4 mg/dL 8.5-10.1 [facility] Serum or plasma creatinine m easurement (mass/volume)Ordered By: Katarina Stevens on 02-02-2023 Creatinine [Mass/Vol] 1.40 mg/dL 0.55-1.02 [facility] Comment on above: The validity of the calculated GFR & GFRAA in patients over 70 years has not been determined. Clinical correlation is essential. Serum or plasma cytomegalovi maria esther (CMV) IgM antibody assay (units/volume)Ordered By: Katarina Stevens on 02-02-2023 CMV IgM Qn < 30.0 AU/mL 0.0-29.9 [facility] Comment on above: Negative <30.0 Equiv ocal 30.0 - 34.9 Positive >34.9A positive result is generally indicative of acuteinfection, reactivation or persistent IgM production. Serum or plasma urea nitroge n measurement (mass/volume)Ordered By: Katarina Stevens on 02-02-2023 Urea nitrogen [Mass/Vol] 20 mg/dL -18 [facility] Serum or plasma uric acid me asurement (mass/volume)Ordered By: Katarina Stevens on 02-02-2023 Urate [Mass/Vol] 6.5 mg/dL 2.6-6.0 [facility] Comment on above: The drugs N-Acetylcy steine and Metamizole may falsely depress this assay. Thin prep Papanicolaou smear with manual screeningOrdered By: Katarina Stevens on 02-02-2023 Thin prep Papanicolaou smear with manual screening 16 U/L 15-37 [facility] Thin prep Papanicolaou smear with manual screening 1 5-15 [facility] Thin prep Papanicolaou smear with manual screening Comment . [facility] Comment on above: EBV Interpretation C raymonKey: Antibody Present + Antibody Absent -Interpretation VCA-IgM [...] Papanicolaou smear with manual screening Negative Negative [facility] Comment on above: Lyme antibodies not detected. Reflex testing is notindicated.No laboratory evidence of infection with B. burgdorferi(Lyme disease). Negative results may occur in patientsrecently infected (less than or equal to 14 days) with B.burgdorferi. If recent infection is suspected, repeattesting on a new sample collected in 7 to 14 days isrecommended.Performed at: [facility] Lab[address] [id number] Director: Ilya Hein PhD, Phone: [phone] XR Shoulder - left 2 Viewson 11-12-2022 1. No acute osseous findings in the left shoulder. Report Dictated on Electronically Signed By: Mike Chandra Electronically Signed Date/Time: 11/12/2022 4:37 PM [facility] Patient Name: MILENA MCGHEE Exam [...] The regional soft tissue structures are unremarkable. [facility] Mike Chandra M D - 11/12/2022 [...] Electronically Signed Date/Time: 11/12/2022 4:37 PM EST [facility] [employer] XR Shoulder - left 2 ViewsOr dered By: Mike Chandra on 11-12-2022 [facility] [employer] Work Phone: XR Shoulder - left 2 Viewson 11-11-2022 Radiology Study observation (narrative) [facility] Laboratory - Chemistry and C hemistry - challengeon 09-16-2022 Bilirubin Ql (U) Negative [facility] Work Phone: Glucose Ql (U) Negative [facility] Work Phone: Ketones Ql (U) Negative [facility] Work Phone: pH (U) 5.5 [pH] [facility] Work Phone: Specific gravity (U) [Rel density] 1.015 [facility] Work Phone: Urobilinogen (U) [Mass/Vol] 0.9718672 mg/dL [facility] Work Phone: Laboratory - Hematology and Cell countson 09-16-2022 Hemoglobin Ql (U) Negative [facility] Work Phone: Laboratory - Specimen inform ationon 09-16-2022 Clarity (U) Clear [facility] Work Phone: Color (U) Yellow [facility] Work Phone: Laboratory - Urinalysison Nitrite Ql (U) Negative [facility] Work Phone: Protein Ql (U) Negative [facility] Work Phone: No Panel Informationon 09-16 Urine Leukocytes Negatve [facility] Work Phone: Urine Non-Hemolyzed Blood [facility] Work Phone: 25-hydroxyvitamin D3 [Mass/V ol]on 08-29-2022 Interpretation and review of laboratory results Normal [facility] Therapy is based on measurement of Total 25-OHD with the following classification levels: Less than 20 ng/mL: Indicative of Vit D deficiency 20-30 ng/mL: Suggests Vit D insufficiency Optimal: Greater than or equal to 30 ng/mL Test performed by Empower2adapt Competitive Immunoassay, measuring Total Vitamin D, not individual fractions. [facility] [employer] [facility] CBC panel Auto (Bld)on 08-29 Erythrocyte distribution width (RBC) [Ratio] 12.6 % 11.5 - 14.5 % [facility] [employer] Hematocrit (Bld) [Volume fraction] 39.6 % 35.0 - 47.0 % [facility] [employer] Hemoglobin (Bld) [Mass/Vol] 13.4 g/dL 11.7 - 16.0 g/dL [facility] Interpretation and review of laboratory results Normal [facility] [employer] MCH (RBC) [Entitic mass] 32.5 pg 26.0 - 34.[address] [facility] MCHC (RBC) [Mass/Vol] 33.8 % 32.0 - 36.0 % [facility] MCV (RBC) [Entitic vol] 96.1 fL 80.0 - 98.[address] [facility] Platelet mean volume (Bld) [Entitic vol] 11.3 fL 7.4 - 12.[address] [facility] Comment on above: MPV is a calculated measurement using platelet volume ratio Platelets (Bld) [#/Vol] 195 10*3/uL 140 - 440 10*3/uL [facility] RBC (Bld) [#/Vol] 4.12 10*6/uL 3.8 - 5.20 10*6/uL [facility] WBC (Bld) [#/Vol] 6.4 10*3/uL 3.6 - 10.7 10*3/uL [facility] Magnesiumon 08-29-2022 Magnesium [Mass/Vol] 1.9 mg/dL 1.6 - 2 .3 mg/dL [facility] Magnesium [Mass/Vol]on 08-29 Interpretation and review of laboratory results Normal [facility] Microalbumin/Creatinine rati o panel (U)on 08-29-2022 Albumin DL <= 20 mg/L (U) [Mass/Vol] 9.1 mg/L 0.0 - 29.9 mg/L [facility] Albumin/Creatinine DL <= 20 mg/L (U) [Mass ratio] 5.3 mg/g 0.0 - 29.9 mg/g [facility] CREATININE, URINE 171.4 mg/dL No Range [facility] Microalbumin concentrations <30 are considered normal, 30-300 are considered microalbuminuria (or risk of diabetic nephropathy), and >300 are considered clinical albuminuria (clinical nephropathy). Diabetes Care,27, Supplement 1, S77-64, 2004 [facility] PTH, intacton 08-29-2022 Parathyrin.intact [Mass/Vol] 99.1 pg/mL High 7.5 - 53.5 pg/mL [facility] Parathyrin.intact [Mass/Vol] on 08-29-2022 Interpretation and review of laboratory results Abnormal [facility] Renal function 2000 panelOrd ered By: Flakita Solomon on 08-29-2022 Albumin [Mass/Vol] 4.2 g/dL 3.5 - 5.0 g/dL [facility] Anion gap [Moles/Vol] 4 mmol/L 3 - 13 mmol/L [facility] Calcium [Mass/Vol] 9.0 mg/dL 8.4 - 10. 4 mg/dL [facility] Chloride [Moles/Vol] 107 mmol/L 98 - 10 7 mmol/L [facility] CO2 [Moles/Vol] 26 mmol/L 22 - 30 mmol/L [facility] Creatinine [Mass/Vol] 1.23 mg/dL High 0.52 - 1.04 mg/dL [facility] GFR/1.73 sq M.predicted MDRD (S/P/Bld) [Vol rate/Area] 45.6 mL/min/{1.73_m2} Low - PINF [facility] Comment on above: Calculation based on the Chronic Kidney Disease Epidemiology Collaboration (CKD-EPI) equation refit without adjustment for race Glucose [Mass/Vol] 100 mg/dL 70 - 100 mg/dL [facility] Interpretation and review of laboratory results Abnormal [facility] Phosphate [Mass/Vol] 3.1 mg/dL 2.5 - 4 .5 mg/dL [facility] Potassium [Moles/Vol] 3.9 mmol/L 3.5 - 5.1 mmol/L [facility] Sodium [Moles/Vol] 137 mmol/L 135 - 145 mmol/L [facility] Urea nitrogen [Mass/Vol] 16 mg/dL 7 - 17 mg/dL [facility] Vitamin D 25 hydroxyon 08-29 25-hydroxyvitamin D3 [Mass/Vol] 35 ng/mL 30 - 100 ng/mL [facility] MG Breast Tomosynthesis Scr Blon 06-13-2022 MG Breast Tomosynthesis Scr Bl Patient Name: MILENA MCGHEE Mammography ACCESSION EXAM DATE/TIME PROCEDURE ORDERING PROVIDER [id number] 06/13/2022 15:19 EDT MG Breast Tomosynthesis BRITTNEY STEVENS DORA L BI Scr CPT code 45862 [id number] Reason For Exam (MG Breast Tomosynthesis BI [...] MG breast tomosynthesis bl scr performed at [facility] at [facility]. January 01, 2015, bilateral screening mammogram performed at [facility]. February 08, 2013, bilateral screening mammogram performed at [facility]. TISSUE DENSITY: BIRADS B - There [...] images: BB's = Nipples; skin lesions Open venetie = Palpable Line = Scar 2D digital [...] pm Signed by: MD LAMBERT LAUREN B Normal [facility] Laboratory - Chemistry and C hemistry - challengeon 06-11-2022 Bil[facility]l (U) [facility]: Glucose Ql (U) Negative [facility] Work Phone: Ketones Ql (U) Negative [facility] Work Phone: pH (U) 6.0 [pH] [facility] Work Phone: Urobilinogen (U) [Mass/Vol] 0.1236981 mg/dL [facility] Work Phone: Laboratory - Hematology and Cell countson 06-11-2022 Hemoglobin Ql (U) Trace [facility] Work Phone: Laboratory - Specimen inform ationon 06-11-2022 Clarity (U) Clear [facility] Work Phone: Color (U) Yellow [facility] Work Phone: Laboratory - Urinalysison Protein Ql (U) Negative [facility] Work Phone: No Panel Informationon 06-11 Urine Bacteria None Seen [facility] Work Phone: Urine Leukocytes Positive [facility] Work Phone: Urine Microscopic RBC None Seen [facility] Work Phone: Urine Microscopic WBC None Seen [facility] Work Phone: Urine Non-Hemolyzed Blood [facility] Work Phone: Absolute lymphocyte counton 04-16-2022 Lymphocytes Auto (Unsp spec) [#/Vol] 2.19 10*3/uL 0.83-4.51 [facility] Work Phone: Basophil percentageon 2021 Basophils/100 WBC (Bld) 0.8 % 0-1 [facility] Work Phone: Bilirubin [Mass/Vol] 0.50 mg/dL 0.20-1.00 [facility] Work Phone: Comment on above: For patients on eltr ombopag therapy, use of Dimension Mason TBIL is not recommended. Chloride [Moles/Vol] 109 mmol/L 98-107 [facility] Work Phone: Cholesterol [Mass/Vol] 165 mg/dL <200 [facility] Work Phone: Comment on above: <200 mg/dL Desirable 200-240 mg/dL Borderline >240 mg/dL High Risk Eosinophils/100 WBC (Bld) 3.4 % 0-5 [facility] Work Phone: Glucose [Mass/Vol] 134 mg/dL 74-106 [facility] Work Phone: Comment on above: Fasting Glucose resu lt greater than or equal to 126 mg/dL suggests DIABETES MELLITUS per A.D.A. criteria. Neutrophils (Bld) [#/Vol] 5.4 10*3/uL 2.0-7.7 [facility] Work Phone: Neutrophils/100 WBC (Bld) 63.2 % 47-70 [facility] Work Phone: Potassium [Moles/Vol] 4.3 mmol/L 3.5-5.1 [facility] Work Phone: Protein [Mass/Vol] 7.1 g/dL 6.4-8.2 [facility] Work Phone: Sodium [Moles/Vol] 141 mmol/L 136-145 [facility] Work Phone: Triglyceride [Mass/Vol] 337 mg/dL <199 [facility] Work Phone: Comment on above: The drugs N-Acetylcy steine and Metamizole may falsely depress this assay.Serum Triglycerides Reference Interval Normal <150 mg/dL Borderline high 150 - 199 mg/dL High 200 - 499 mg/dL Very High > or = 500 mg/dL WBC (Bld) [#/Vol] 8.6 10*3/uL 4.4-11.0 [facility] Work Phone: Blood erythrocytes count (nu mber/volume)on 04-16-2022 RBC (Bld) [#/Vol] 3.99 10*6/uL 4.2-5.4 [facility] Work Phone: Blood hemoglobin measurement (mass/volume)on 04-16-2022 Hemoglobin (Bld) [Mass/Vol] 12.8 g/dL 12.0-15.0 [facility] Work Phone: Blood lymphocytes/100 leukoc yteson 04-16-2022 Lymphocytes/100 WBC (Bld) 25.6 % 19-41 [facility] Work Phone: Blood monocytes/100 leukocyt eson 04-16-2022 Monocytes/100 WBC (Bld) 6.8 % 0-10 [facility] Work Phone: Blood platelet mean volumeon 04-16-2022 Platelet mean volume (Bld) [Entitic vol] 11.6 fL 6.2-12.0 [facility] Work Phone: Determination of erythrocyte mean corpuscular volume (MCV)on 04-16-2022 MCV (RBC) [Entitic vol] 97.0 fL 81-99 [facility] Work Phone: Hematocrit Auto (Bld) [Volum e fraction]on 04-16-2022 Hematocrit (Bld) [Volume fraction] 38.7 % 37-47 [facility] Work Phone: Laboratory - Chemistry and C hemistry - challengeon 04-16-2022 ALP [Catalytic activity/Vol] 140 U/L 45-117 [facility] Work Phone: ALT [Catalytic activity/Vol] 24 U/L 13-56 [facility] Work Phone: CO2 [Moles/Vol] 26.0 mmol/L 21.0-32.0 [facility] Work Phone: Globulin (S) [Mass/Vol] 3.2 g/dL 2.2-4.2 [facility] Work Phone: Urea nitrogen/Creatinine [Mass ratio] 11.0 mg/mg 10-20 [facility] Work Phone: Laboratory - Hematology and Cell countson 04-16-2022 Erythrocyte distribution width (RBC) [Entitic vol] 43.9 fL 35.1-43.9 [facility] Work Phone: Erythrocyte distribution width (RBC) [Ratio] 12.3 % 11.6-14.6 [facility] Work Phone: Immature granulocytes/100 WBC (Bld) 0.200 % 0.0-0.9 [facility] Work Phone: Comment on above: IG% - Immature Granu locytes (promyelocytes, myelocytes and metamyelocytes) > 1% indicates that a LEFT SHIFT is Present. MCH (RBC) [Entitic mass] 32.1 pg 27.0-32.0 [facility] Work Phone: Nucleated RBC/100 WBC (Bld) [Ratio] 0 % 0-5 [facility] Work Phone: MCHC Auto (RBC) [Mass/Vol]on 04-16-2022 MCHC (RBC) [Mass/Vol] 33.1 g/dL 32-36 [facility] Work Phone: No Panel Informationon 04-16 Estimated GFR (MDRD) Amer 42 mL/min >60 [facility] Work Phone: Comment on above: GFR Calc Estimated GFR (MDRD) Non-Af Amer 35 mL/min >60 [facility] Work Phone: Comment on above: Non- GFR Calc Platelets bldon 04-16-2022 Platelets (Bld) [#/Vol] 206 10*3/uL 150-450 [facility] Work Phone: Serum or plasma albumin laz urement (mass/volume)on 04-16-2022 Albumin [Mass/Vol] 3.9 g/dL 3.2-5.0 [facility] Work Phone: Serum or plasma albumin/glob ulin mass ratioon 04-16-2022 Albumin/Globulin [Mass ratio] 1.2 {ratio} 0.9-2.4 [facility] Work Phone: Serum or plasma calcium laz urement (mass/volume)on 04-16-2022 Calcium [Mass/Vol] 9.1 mg/dL 8.5-10.1 [facility] Work Phone: Serum or plasma cholesterol in HDL measurement (mass/volume)on 04-16-2022 Cholesterol in HDL [Mass/Vol] 47 mg/dL >40 [facility] Work Phone: Comment on above: The drugs N-Acetylcy steine and Metamizole may falsely depress this assay. Reference Range HDL <40 mg/dL Low HDL Cholesterol HDL >or= 60 mg/dL High HDL Cholesterol Serum or plasma cholesterol in VLDL measurement (mass/volume)on 04-16-2022 Cholesterol in VLDL [Mass/Vol] 67 mg/dL 5-40 [facility] Work Phone: Serum or plasma creatinine m easurement (mass/volume)on 04-16-2022 Creatinine [Mass/Vol] 1.54 mg/dL 0.55-1.02 [facility] Work Phone: Comment on above: The validity of the calculated GFR & GFRAA in patients over 70 years has not been determined. Clinical correlation is essential. Serum or plasma low density lipoprotein (LDL) cholesterol measurement (mass/volume)on 04-16-2022 Cholesterol in LDL [Mass/Vol] 51 mg/dL 0-130 [facility] Work Phone: Serum or plasma urea nitroge n measurement (mass/volume)on 04-16-2022 Urea nitrogen [Mass/Vol] 17 mg/dL 7-18 [facility] Work Phone: Thin prep Papanicolaou smear with manual screeningon 04-16-2022 Thin prep Papanicolaou smear with manual screening 18 U/L 15-37 [facility] Work Phone: Thin prep Papanicolaou smear with manual screening 6 5-15 [facility] Work Phone: Culture, urineon 03-08-2022 Bacteria identified Cx Nom (U) Klebsiella pneumoniae sp pneum [facility] Work Phone: Laboratory - Chemistry and C hemistry - challengeon 03-07-2022 Bilirubin Ql (U) Negative [facility] Work Phone: Glucose Ql (U) Negative [facility] Work Phone: Ketones Ql (U) Negative [facility] Work Phone: pH (U) 5.5 [pH] [facility] Work Phone: Specific gravity (U) [Rel density] 1.025 [facility] Work Phone: Urobilinogen (U) [Mass/Vol] Negative [facility] Work Phone: Laboratory - Hematology and Cell countson 03-07-2022 Hemoglobin Ql (U) Hemolyzed [facility] Work Phone: Laboratory - Specimen inform ationon 03-07-2022 Clarity (U) Cloudy [facility] Work Phone: Color (U) Yellow [facility] Work Phone: Laboratory - Urinalysison Nitrite Ql (U) Negative [facility] Work Phone: Protein Ql (U) Negative [facility] Work Phone: No Panel Informationon 03-07 Urine Bacteria None Seen [facility] Work Phone: Urine Leukocytes Positive [facility] Work Phone: Urine Microscopic RBC None Seen [facility] Work Phone: Urine Microscopic WBC None Seen [facility] Work Phone: Urine Non-Hemolyzed Blood Trace [facility] Work Phone: Basic Metabolic Panelon Anion gap [Moles/Vol] 7 mmol/L Normal 3-13 [facility] Comment on above: Performed By: #### V D25H, PTH3 #### [facility] [employer] [address] [place] [address] #### PHOS3, BMP3, CRTUR, TPUR, CUA2 #### [facility] [address] [place] [address] Calcium [Mass/Vol] 9.7 mg/dL Normal 8.4-10.4 [facility] Comment on above: Performed By: #### V D25H, PTH3 #### [facility] [address] [place] [address] #### PHOS3, BMP3, CRTUR, TPUR, CUA2 #### [facility] [address] [place] [address] CO2 [Moles/Vol] 28 mmol/L Normal 22-30 [facility] Comment on above: Performed By: #### V D25H, PTH3 #### [address] [place] [address] #### PHOS3, BMP3, CRTUR, TPUR, CUA2 #### [address] [place] [address] Glucose [Mass/Vol] 105 mg/dL High 70-100 [facility] Comment on above: Performed By: #### V D25H, PTH3 #### [place] [address] [place] [address] #### PHOS3, BMP3, CRTUR, TPUR, CUA2 #### [facility] [address] [place] [address] Urea nitrogen [Mass/Vol] 19 mg/dL Normal 9-20 [facility] Comment on above: Performed By: #### V D25H, PTH3 #### [place] [address] [place] [address] #### PHOS3, BMP3, CRTUR, TPUR, CUA2 #### [facility] [address] [place] [address] Creatinine [Mass/Vol] 1.26 mg/dL High 0.52-1.25 [facility] Comment on above: Performed By: #### V D25H, PTH3 #### [place] [address] [place] [address] #### PHOS3, BMP3, CRTUR, TPUR, CUA2 #### [facility] [address] [place] [address] GFR/1.73 sq M.predicted among blacks MDRD (S/P/Bld) [Vol rate/Area] 48.1 mL/min/{1.73_m2} Abnormal >60 [facility] Comment on above: Performed By: #### V D25H, PTH3 #### [facility] [address] [place] [address] #### PHOS3, BMP3, CRTUR, TPUR, CUA2 #### [facility] [address] [place] [address] GFR/1.73 sq M.predicted among non-blacks MDRD (S/P/Bld) [Vol rate/Area] 41.5 mL/min/{1.73_m2} Abnormal >60 [facility] Comment on above: Result Comment: KDIG O [...] By: #### V D25H, PTH3 #### [facility] [address] [place] [address] #### PHOS3, BMP3, CRTUR, TPUR, CUA2 #### [facility] [address] [place] [address] Potassium [Moles/Vol] 4.3 mmol/L Normal 3.5-5.1 [facility] Comment on above: Performed By: #### V D25H, PTH3 #### [facility] [address] [place] [address] #### PHOS3, BMP3, CRTUR, TPUR, CUA2 #### [facility] [address] [place] [address] Sodium [Moles/Vol] 140 mmol/L Normal 135-145 [facility] Comment on above: Performed By: #### V D25H, PTH3 #### [facility] [address] [place] [address] #### PHOS3, BMP3, CRTUR, TPUR, CUA2 #### [facility] [address] [place] [address] Chloride [Moles/Vol] 105 mmol/L Normal 98-107 [facility] Comment on above: Performed By: #### V D25H, PTH3 #### [facility] [address] [place] [address] #### PHOS3, BMP3, CRTUR, TPUR, CUA2 #### [facility] [address] [place] [address] Anion gap [Moles/Vol] 7 mmol/L 3 - 13 mmol/L [facility] Calcium [Mass/Vol] 9.7 mg/dL 8.4 - 10. 4 mg/dL [facility] Chloride [Moles/Vol] 105 mmol/L 98 - 10 7 mmol/L [facility] CO2 [Moles/Vol] 28 mmol/L 22 - 30 mmol/L [facility] Creatinine [Mass/Vol] 1.26 mg/dL High 0.52 - 1.25 mg/dL [facility] EGFR IF NonAfrican Venezuelan 41.5 mL/min Abnormal >60 [facility] Comment on above: KDIGO guidelines pro vide [...] 105 mg/dL High 70 - 100 mg/dL [facility] Interpretation and review of laboratory results Abnormal [facility] Potassium [Moles/Vol] 4.3 mmol/L 3.5 - 5.1 mmol/L [facility] Sodium [Moles/Vol] 140 mmol/L 135 - 145 mmol/L [facility] Urea nitrogen (BldV) [Mass/Vol] 19 mg/dL 9 - 20 mg/dL [facility] Complete Urinalysison 2021 Appearance (U) Clear Normal Clear [facility] Comment on above: Result Comment: . Performed By: #### V D25H, PTH3 #### [facility] [address] [place] [address] #### PHOS3, BMP3, CRTUR, TPUR, CUA2 #### [facility] [address] [place] [address] Bilirubin,Urine Negative Normal Negative [facility] Comment on above: Result Comment: . Performed By: #### V D25H, PTH3 #### [facility] [address] [place] [address] #### PHOS3, BMP3, CRTUR, TPUR, CUA2 #### [facility] [address] [place] [address] Color (U) LIGHT YELLOW Normal Lt. Yellow [facility] Comment on above: Result Comment: . Performed By: #### V D25H, PTH3 #### [facility] [address] [place] [address] #### PHOS3, BMP3, CRTUR, TPUR, CUA2 #### [facility] [address] [place] [address] Glucose Ql (U) Normal Normal Normal (<70) [facility] Comment on above: Result Comment: . Performed By: #### V D25H, PTH3 #### [place] [address] [place] [address] #### PHOS3, BMP3, CRTUR, TPUR, CUA2 #### [facility] [address] [place] [address] Ketone,Urine Negative Normal Negative [facility] Comment on above: Result Comment: . Performed By: #### V D25H, PTH3 #### [facility] [address] [place] [address] #### PHOS3, BMP3, CRTUR, TPUR, CUA2 #### [facility] [address] [place] [address] Leukocytes,Urine Negative Normal Negative [facility] Comment on above: Result Comment: . Performed By: #### V D25H, PTH3 #### [place] [address] [place] [address] #### PHOS3, BMP3, CRTUR, TPUR, CUA2 #### [facility] [address] [place] [address] Nitrites,Urine Negative Normal Negative [facility] Comment on above: Result Comment: . Performed By: #### V D25H, PTH3 #### [place] [address] [place] [address] #### PHOS3, BMP3, CRTUR, TPUR, CUA2 #### [facility] [address] [place] [address] Occult Blood,Urine Negative Normal Negative [facility] Comment on above: Result Comment: . Performed By: #### V D25H, PTH3 #### [place] [address] [place] [address] #### PHOS3, BMP3, CRTUR, TPUR, CUA2 #### [facility] [address] [place] [address] pH,Urine 5.5 Normal 5.0-8.0 [facility] Comment on above: Result Comment: . Performed By: #### V D25H, PTH3 #### [place] [address] [place] [address] #### PHOS3, BMP3, CRTUR, TPUR, CUA2 #### [facility] [address] [place] [address] Specific [place],Urine 1.013 Normal 1.005 - 1.030 [facility] Comment on above: Result Comment: . Performed By: #### V D25H, PTH3 #### [facility] [address] [place] [address] #### PHOS3, BMP3, CRTUR, TPUR, CUA2 #### [facility] [address] [place] [address] Total Protein,Urine Negative Normal Negative [facility] Comment on above: Result Comment: . Performed By: #### V D25H, PTH3 #### [facility] [address] [place] [address] #### PHOS3, BMP3, CRTUR, TPUR, CUA2 #### [facility] [address] [place] [address] Urobilinogen,Urine Normal Normal Normal (0-1) [facility] Comment on above: Result Comment: . Performed By: #### V D25H, PTH3 #### [place] [address] [place] [address] #### PHOS3, BMP3, CRTUR, TPUR, CUA2 #### [facility] [address] [place] [address] Creatinine, Random Urineon 0 - Creatinine (U) [Mass/Vol] 82.3 mg/dL No Range [facility] Creatinine, Ur Randomon 05-0 Creatinine, Ur Random 82.3 mg/dL Normal No Range [facility] Comment on above: Performed By: #### V D25H, PTH3 #### [place] [address] [place] [address] #### PHOS3, BMP3, CRTUR, TPUR, CUA2 #### [facility] [address] [place] [address] No Panel Informationon 02-20 Test Performed by [facility], [address] [place] [address] , [place], [place] [address] [facility] Test Performed by [facility], [address] , [place], [place] [address] [facility] PTH, Intacton 02-20-2022 PTH, Intact 61.0 pg/mL High 8.0-54.0 [facility] Comment on above: Performed By: #### V D25H, PTH3 #### [facility] [address] [place] [address] #### PHOS3, BMP3, CRTUR, TPUR, CUA2 #### [facility] [address] [place] [address] Interpretation and review of laboratory results Abnormal [facility] Pth Intact 61 pg/mL High 8.0 - 54.0 pg/mL [facility] Test Performed by [facility], [address], [place], [place] [address] [facility] Phosphoruson 02-20-2022 Phosphate [Mass/Vol] 3.5 mg/dL Normal 2.5-4.5 [facility] Comment on above: Performed By: #### V D25H, PTH3 #### [facility] [address] [place] [address] #### PHOS3, BMP3, CRTUR, TPUR, CUA2 #### [facility] [address] [place] [address] Phosphate [Mass/Vol] 3.5 mg/dL 2.5 - 4 .5 mg/dL [facility] Protein, Ur Randomon 022 Protein, Ur Random < 5 Normal No Range [facility] Comment on above: Performed By: #### V D25H, PTH3 #### [facility] [address] [place] [address] #### PHOS3, BMP3, CRTUR, TPUR, CUA2 #### [facility] [address] [place] [address] Protein, urine, randomon Protein, Urine, Random <5 [...] above: . Occult Blood,Urine Negative Negative mg/dL [facility] Comment on above: . pH (U) 5.5 [pH] [facility] Comment on above: . Specific [place], Urine 1.013 [facility] Comment on above: . Total Protein, Urine Negative Negativ e mg/dL [facility] Comment on above: . Urobilinogen, Urine Normal Normal (0-1) mg/dL [facility] Comment on above: . Test Performed by [facility], [address] , [place], [place] [id number] [place] [address] LAB [facility] Vit D 25-OH, Totalon 022 Vit D 25-OH, Total 53 ng/mL Normal 30-100 [facility] Comment on above: Result Comment: Ther apy is based on measurement of Total 25- OHD with the following classification levels: Less than 20 ng/mL: Indicative of Vit D deficiency 20-30 ng/mL: Suggests Vit D insufficiency Optimal: Greater than or equal to 30 ng/mL Test performed by [employer] Competitive Immunoassay, measuring Total Vitamin D, not individual fractions. Performed By: #### V D25H, PTH3 #### [facility] [address] [place] [address] #### PHOS3, BMP3, CRTUR, TPUR, CUA2 #### [facility] [address] [place] [address] Vitamin D 25 Hydroxyon 02-20 Vit D, 25-Hydroxy 53 ng/mL 30 - 100 ng/mL [facility] Comment on above: Therapy is based on measurement of Total 25-OHD with the following classification levels: Less than 20 ng/mL: Indicative of Vit D deficiency 20-30 ng/mL: Suggests Vit D insufficiency Optimal: Greater than or equal to 30 ng/mL Test performed by [employer] Competitive Immunoassay, measuring Total Vitamin D, not individual fractions. Test Performed by [facility], [address], [place], [place] [address] [facility] Laboratory - Chemistry and C hemistry - challengeon 02-17-2022 Bilirubin Ql (U) Negative [facility] Work Phone: Glucose Ql (U) Negative [facility] Work Phone: Ketones Ql (U) Negative [facility] Work Phone: pH (U) 7.0 [pH] [facility] Work Phone: Specific gravity (U) [Rel density] 1.025 [facility] Work Phone: Laboratory - Hematology and Cell countson 02-17-2022 Hemoglobin Ql (U) Negative [facility] Work Phone: Laboratory - Specimen inform ationon 02-17-2022 Clarity (U) Clear [facility] Work Phone: Color (U) YULIYA [facility] Work Phone: Laboratory - Urinalysison Nitrite Ql (U) Negative [facility] Work Phone: No Panel Informationon 02-17 Urine Bacteria Large [facility] Work Phone: Urine Leukocytes Positive [facility] Work Phone: Urine Microscopic RBC None Seen [facility] Work Phone: Urine Microscopic WBC Large [facility] Work Phone: Urine Non-Hemolyzed Blood Negative [facility] Work Phone: Basic Metabolic Panelon -0 Anion gap [Moles/Vol] 10 mmol/L 3 - 13 mmol/L [facility] Work Phone: Calcium [Mass/Vol] 9.7 mg/dL 8.4 - 10. 4 mg/dL [facility] Work Phone: Chloride [Moles/Vol] 107 mmol/L 98 - 10 7 mmol/L [facility] Work Phone: CO2 [Moles/Vol] 24 mmol/L 22 - 30 mmol/L [facility] Work Phone: Creatinine [Mass/Vol] 1.11 mg/dL 0.52 - 1.25 mg/dL [facility] Work Phone: [phone] EGFR IF NonAfrican Venezuelan 48.7 mL/min Abnormal >60 [facility] Work Phone: [phone] Comment on above: KDIGO guidelines pro vide [...] (S/P/Bld) [Vol rate/Area] 56.4 mL/min/{1.73_m2} Abnormal >60 [facility] Work Phone: Glucose [Mass/Vol] 131 mg/dL High 70 - 100 mg/dL [facility] Work Phone: [phone] Interpretation and review of laboratory results Abnormal [facility] Work Phone: Potassium [Moles/Vol] 4.2 mmol/L 3.5 - 5.1 mmol/L [facility] Work Phone: Sodium [Moles/Vol] 142 mmol/L 135 - 145 mmol/L [facility] Work Phone: [phone] Urea nitrogen (BldV) [Mass/Vol] 15 mg/dL 7 - 20 mg/dL [facility] Work Phone: Creatinine, Random Urineon 0 01-24-2021 Creatinine (U) [Mass/Vol] 91.2 mg/dL No Range [facility] Work Phone: [phone] Otheron 01-24-2021 Test Performed by [facility], [address], [place], [place] [address] [facility] Work Phone: 1) Test Performed by [facility], [address] , [place], [place] [address] [facility] Work Phone: 1) Test Performed by [facility], [address] , [place], [place] [address] [facility] Work Phone: 1) PTH, Intacton 01-24-2021 Pth Intact 45.6 pg/mL 15.0 - 63.0 pg/mL [facility] Work Phone: 1) Phosphoruson 01-24-2021 Phosphate [Mass/Vol] 2.9 mg/dL 2.5 - 4 .5 mg/dL [facility] Work Phone: 1) Protein, urine, randomon Protein (U) [Mass/Vol] 9 mg/dL No Range [employer] Work Phone: [phone] Urinalysison 01-24-2021 Appearance (U) Clear Clear NA [facility] Work Phone: ) Comment on above: . Bilirubin Urine Negative Negative mg/dL [facility] Work Phone: Comment on above: . Color (U) LIGHT YELLOW Lt. Yellow NA [facility] Work Phone: - Comment on above: . Glucose, Ur Normal Normal (<70) mg/dL [facility] Work Phone: ) Comment on above: . Interpretation and review of laboratory results Abnormal [facility] Work Phone: [phone] Ql (U) Negative Negative mg/dL [facility] Work Phone: ) Comment on above: . LEUKOCYTES, UA 75 Abnormal Negative Nicole/uL [facility] Work Phone: [phone] Comment on above: . Nitrite, Urine Negative Negative NA [facility] Work Phone: [phone] Comment on above: . Occult Blood,Urine Negative Negative mg/dL [facility] Work Phone: [phone] Comment on above: . pH (U) 6.5 [pH] [facility] Work Phone: [phone] Comment on above: . Protein (U) [Mass/Vol] Negative Negat steve mg/dL [facility] Work Phone: [phone] Comment on above: . Specific [place], Urine 1.011 [facility] Work Phone: [phone] Comment on above: . Squam Epithel, UA 0-2 3 - 5 /[HPF] [facility] Work Phone: [phone] Comment on above: . Urobilinogen, Urine Normal Normal (0-1) mg/dL [facility] Work Phone: [phone] Comment on above: . Volume 12 ml [facility] Work Phone: [phone] Comment on above: . WBC, UA 3-5 0 - 5 /[HPF] [facility] Work Phone: [phone] Comment on above: . Test Performed by [facility], [employer] [address] [place], [place] [address] [facility] Work Phone: [phone] Vitamin D 25 Hydroxyon 01-24 Vit D, 25-Hydroxy 43 ng/mL 30 - 100 ng/mL [facility] Work Phone: Comment on above: Therapy is based on measurement of Total 25-OHD with the following classification levels: Less than 20 ng/mL: Indicative of Vit D deficiency 20-30 ng/mL: Suggests Vit D insufficiency Optimal: Greater than or equal to 30 ng/mL Test performed by [employer] Competitive Immunoassay, measuring Total Vitamin D, not [...] there was no bleeding. [employer] Job ID: [id number] Bridget Briones MD DOD:01/16/2021 10:36 A SHAUN/antonio DOT:01/16/2021 11:06 A Job Number: [id number] Document Number: [id number] cc: Bridget Briones MD [address] [place] [id number] Normal [facility] Surgical Pathologyon 021 Surgical Pathology [id number] [facility] PATHOLOGY AND LABORATORY MEDICINE [address] [place], [place] [address] [address] FINAL SURGICAL PATHOLOGY REPORT NAME: MILENA MCGHEE : 1945 75 Y F TOBIAS NO.: [id number] LOCATION: E PROCEDURE 01/16/2021 DATE: SURGEON: BRIDGET BRIONES M.D. RECEIVED 01/16/2021 DATE: ATTENDING: BRIDGET BRIONES [...] determined by the clinical laboratories of [facility]. They have not been cleared by the [...] negativity on decalcified specimens. Professional Performing Location: [place] [address]. DEPARTMENT OF PATHOLOGY AND LABORATORY MEDICINE [place], [place] [address] [email or web address] Normal [facility] US RETROPERITONEAL COMPLETEo n 05-23-2020 Patient Name: MILENA MCGHEE ---Ultrasound--- Exam Date/Time 05/23/2020 10:00:00 EDT Exam US Retroperitoneal Complete Ordering Physician BRITTNEY STEVENS DORA L Accession Number [id number] CPT4 Codes 57329 () Reason For Exam bilateral kidneys Report [...] AHMAD Transcribed Date and Time: 05/23/2020 3:22 [place], [place], [facility] Incoming Radiology Results From [facility] - 05/23/2020 3:27 PM EDT Patient Name: MILENA MCGHEE ---Ultrasound--- Exam Date/Time 05/23/2020 10:00:00 EDT Exam US Retroperitoneal Complete Ordering Physician BRITTNEY STEVENS DORA L Accession Number [id number] CPT4 Codes 23698 () Reason For Exam bilateral kidneys Report [...] AHMAD Transcribed Date and Time: 05/23/2020 3:22 [place], [place] US Retroperitoneal Completeo n 05-23-2020 US Retroperitoneal Complete Patient Name: MILENA MCGHEE Ultrasound Exam Date/Time 05/23/2020 10:00:00 EDT Exam US Retroperitoneal Complete Ordering Physician BRITTNEY STEVENS DORA L Accession Number [id number] CPT4 Codes 78236 () Reason For Exam bilateral kidneys Report [...] AHMAD Transcribed Date and Time: 05/23/2020 3:[address] [facility] [address] Abdomen Pelvis Wo Contras ton 03-13-2020 Patient Name: MILENA MCGHEE ---CT--- Exam Date/Time 03/13/2020 09:35:[address] Abdomen/Pelvis (No PO, No IV) Ordering Physician BRITTNEY STEVENS DORA L Accession Number [id number] CPT4 Codes 52860 (CT Abdomen/Pelvis (No PO, No IV)) Reason [...] HARLAN Transcribed Date and Time: 03/13/2020 10:13 [facility] [place] [place] Incoming Radiology Results From [facility] - 03/13/2020 10:22 AM EDT Patient Name: MILENA MCGHEE ---CT--- Exam Date/Time 03/13/2020 09:35:[address] Abdomen/Pelvis (No PO, No IV) Ordering Physician BRITTNEY STEVENS DORA L Accession Number [id number] CPT4 Codes 02284 (CT Abdomen/Pelvis (No PO, No IV)) Reason [...] HARLAN Transcribed Date and Time: 03/13/2020 10:13 [place] CT Abdomen/Pelvis w/o Contra cosme 03-13-2020 CT Abdomen/Pelvis w/o Contrast Patient Name: MILENA MCGHEE CT Exam Date/Time 03/13/2020 09:35:[address] Abdomen/Pelvis (No PO, No IV) Ordering Physician BRITTNEY STEVENS DORA L Accession Number [id number] CPT4 Codes 33003 (CT Abdomen/Pelvis (No PO, No IV)) Reason [...] Date and Time: 03/13/2020 10:13 Normal [facility] MRI LUMBAR SPINE W YONIS Linares 08-08-2019 Patient Name: MILENA MCGHEE ---MRI--- Exam Date/Time 08/08/2019 13:42:27 EDT Exam MRI Spine Lumbar w/ + w/o Contrast Ordering Physician BRITTNEY GODINEZ BRANDY M Accession Number [id number] CPT4 Codes 97233 () Reason For Exam STENOSIS Report Examination: [...] JASON Transcribed Date and Time: 08/08/2019 3:33 [facility] [place] [place] Incoming Radiology Results From [facility] - 08/08/2019 3:33 PM EDT Patient Name: MILENA MCGHEE ---MRI--- Exam Date/Time 08/08/2019 13:42:27 EDT Exam MRI Spine Lumbar w/ + w/o Contrast Ordering Physician BRITTNEY GODINEZ BRANDY M Accession Number [id number] CPT4 Codes 41206 () Reason For Exam STENOSIS Report Examination: [...] JASON Transcribed Date and Time: 08/08/2019 3:33 [place], [place] Creatinine, Serumon 08-01-20 19 Creatinine [Mass/Vol] 1.31 mg/dL High 0.52 - 1.25 mg/dL [place], [place] EGFR IF NonAfrican [place]an 39.8 mL/min >60 [place], [place] Comment on above: Source- MDRD equatio n with creatinine calibration to IDMS(NKDEP) eGFR not recommended for drug dose adjustment GFR/1.73 sq M predicted among blacks MDRD (S/P/Bld) [Vol rate/Area] 48.2 mL/min/{1.73_m2} >60 [place], [place] Interpretation and review of laboratory results Abnormal [place], [place] Test Performed by [facility], [address] , [place], [place] [address] [facility] [place], [place] CBC and Differentialon 02-14 Abs Baso 0.03 k/uL Normal <0.11 [facility] Comment on above: Performed By: #### C BCDIF, CMP, LIPA, MG1 ####[facility] [address] [place] [address] Abs [place] 0.93 k/uL High <0.87 [facility] Comment on above: Performed By: #### C BCDIF, CMP, LIPA, MG1 ####[facility] [address] [place] [address] Abs Neut 7.65 k/uL High 1.45-7.50 [facility] Comment on above: Performed By: #### C BCDIF, CMP, LIPA, MG1 ####[facility] [address] [place] [address] Basophils/100 WBC Auto (Bld) 0.3 % Normal [facility] Comment on above: Performed By: #### C BCDIF, CMP, LIPA, MG1 ####[facility] [address] [place] [address] Eosinophils 0.25 10*3/uL Normal <0.46 [facility] Comment on above: Performed By: #### C BCDIF, CMP, LIPA, MG1 ####[facility] [address] [place] [address] Eosinophils/100 leukocytes 2.5 % Normal [facility] Comment on above: Performed By: #### C BCDIF, CMP, LIPA, MG1 ####[facility] [address] [place] [address] Erythrocyte distribution width Auto Ratio (RBC) 11.9 % Normal 11.5-15.0 [facility] Comment on above: Performed By: #### C BCDIF, CMP, LIPA, MG1 ####[facility] [address] [place] [address] Erythrocytes (RBC) 3.44 10*6/uL Low 3.90-5.20 [facility] Comment on above: Performed By: #### C BCDIF, CMP, LIPA, MG1 ####[facility] [address] [place] [address] Hematocrit (HCT) 33.3 % Low 36.0-46.0 [facility] Comment on above: Performed By: #### C BCDIF, CMP, LIPA, MG1 ####[facility] [address] [place] [address] Hemoglobin mass conc (Bld) 10.8 g/dL Low 11.5-15.5 [facility] Comment on above: Performed By: #### C BCDIF, CMP, LIPA, MG1 ####[facility] [address] [place] [address] Lymphocytes 1.06 10*3/uL Normal 1.00-4.00 [facility] Comment on above: Performed By: #### C BCDIF, CMP, LIPA, MG1 ####[place] [address] Lymphocytes/100 leukocytes 10.7 % Normal [facility] Comment on above: Performed By: #### C BCDIF, CMP, LIPA, MG1 ####[facility] [address] [place] [address] MCH 31.4 pG Normal 26.0-34.0 [facility] Comment on above: Performed By: #### C BCDIF, CMP, LIPA, MG1 ####[facility] [address] [place] [address] MCHC mass conc (RBC) 32.4 g/dL Normal 30.5-36.0 [facility] Comment on above: Performed By: #### C BCDIF, CMP, LIPA, MG1 ####[facility] [address] [place] [address] MCV 96.8 fL Normal 80.0-100.0 [facility] Comment on above: Performed By: #### C BCDIF, CMP, LIPA, MG1 ####[place] [address] Monocytes/100 leukocytes 9.4 % Normal [facility] Comment on above: Performed By: #### C BCDIF, CMP, LIPA, MG1 ####[facility] [address] [place] [address] Neutrophils/100 WBC Auto (Bld) 77.1 % Normal [facility] Comment on above: Performed By: #### C BCDIF, CMP, LIPA, MG1 ####[facility] [address] [place] [address] Platelet mean volume (PMV) 10.7 fL Normal 9.0-12.7 [facility] Comment on above: Performed By: #### C BCDIF, CMP, LIPA, MG1 ####[facility] [address] [place] [address] Platelets 202 10*3/uL Normal 150-400 [facility] Comment on above: Performed By: #### C BCDIF, CMP, LIPA, MG1 ####[place] [address] WBC (Leukocytes) 9.92 10*3/uL Normal 3.70-11.00 [facility] Comment on above: Performed By: #### C BCDIF, CMP, LIPA, MG1 ####[place] [address] CK, Total and CKMBon 018 CKMB 0.7 % Normal 0.0-4.0 [facility] Comment on above: Performed By: #### C KCWILLIAM ####[place] [address] Creatine kinase (CK) 198 U/L High 42-196 [facility] Comment on above: Performed By: #### C KCZENONB ####[place] [address] MB 1.3 ng/mL Normal <4.3 [facility] Comment on above: Performed By: #### C KCZENONB ####[facility] [address] [place] [address] Comp Metabolic Panelon 02-14 Alanine aminotransferase (ALT) 18 U/L Normal 7-38 [facility] Comment on above: Performed By: #### C BCDIF, CMP, LIPA, MG1 ####[facility] [address] [place] [address] Albumin 3.5 g/dL Low 3.9-4.9 [facility] Comment on above: Performed By: #### C BCDIF, CMP, LIPA, MG1 ####[facility] [address] [place] [address] Alkaline phosphatase (ALP) 101 U/L Normal 32-117 [facility] Comment on above: Performed By: #### C BCDIF, CMP, LIPA, MG1 ####[facility] [address] [place] [address] Anion gap 11 mmol/L Normal 9-18 [facility] Comment on above: Performed By: #### C BCDIF, CMP, LIPA, MG1 ####[facility] [address] [place] [address] Aspartate aminotransferase (AST) 22 U/L Normal 13-35 [facility] Comment on above: Performed By: #### C BCDIF, CMP, LIPA, MG1 ####[facility] [address] [place] [address] Bilirubin (total) 0.9 mg/dL Normal 0.2-1.3 [facility] Comment on above: Performed By: #### C BCDIF, CMP, LIPA, MG1 ####[facility] [address] [place] [address] Calcium 8.9 mg/dL Normal 8.5-10.2 [facility] Comment on above: Performed By: #### C BCDIF, CMP, LIPA, MG1 ####[facility] [address] [place] [address] Chloride 97 mmol/L Normal 97-105 [facility] Comment on above: Performed By: #### C BCDIF, CMP, LIPA, MG1 ####[facility] [address] [place] [address] CO2 29 mmol/L Normal 22-30 [facility] Comment on above: Performed By: #### C BCDIF, CMP, LIPA, MG1 ####[facility] [address] [place] [address] Creatinine 0.93 mg/dL Normal 0.58-0.96 [facility] Comment on above: Performed By: #### C BCDIF, CMP, LIPA, MG1 ####[facility] Ychtubohhf9594 [address] eGFR (non-black) 59 . Normal [facility] Comment on above: Result Comment: eGFR (Estimated [...] By: #### C BCDIF, CMP, LIPA, MG1 ####[facility] [address] [place] [id number] eGFR (non-black) mL/min/{1.73_m2} Normal [facility] Comment on above: Performed By: #### C BCDIF, CMP, LIPA, MG1 ####[facility] [address] [place] [id number] Glucose mass conc 118 mg/dL High 74-99 [facility] Comment on above: Result Comment: The [place] [employer] (ADA) provides guidance for cutoff [...] Standards of Medical Care in Diabetes 2016, [place] [employer]. Diabetes Care. 2016.39(Suppl 1). Performed By: #### C BCDIF, CMP, LIPA, MG1 ####[facility] Sdpg[address]uxogh2994 [address] Potassium molar conc 3.7 mmol/L Normal 3.7-5.1 [facility] Comment on above: Performed By: #### C BCDIF, CMP, LIPA, MG1 ####[facility] [address] [place] [address] Protein 6.6 g/dL Normal 6.3-8.0 [facility] Comment on above: Performed By: #### C BCDIF, CMP, LIPA, MG1 ####[facility] Roagbilmac2262 [address] Sodium 137 mmol/L Normal 136-144 [facility] Comment on above: Performed By: #### C BCDIF, CMP, LIPA, MG1 ####[facility] Cbxjcfoygx3851 [address] Urea nitrogen 12 mg/dL Normal 7-21 [facility] Comment on above: Performed By: #### C BCDIF, CMP, LIPA, MG1 ####[facility] Yy[address]sghn7826 [address] ED NOTEon 02-14-2018 ED NOTE HNO ID: [id number] Author: Isidra CabreraRn) Mike RN Service: (none) Author Type: Registered Nurse Type: ED Notes Filed: 02/14/2018 2:45 AM Note Text: Daughters depart For home. Aware of future transfer. [facility] ED NOTE HNO ID: [id number] thor: Isidra (Rn) JENNIFER Mckeonervice: (none)Author Type: Registered NurseType: ED NotesFiled: 02/14/2018 2:37 AMNote Text: Bed assignment obtained at [address] [id number]. [employer] will be here in 45 minutes. [facility] ED NOTE HNO ID: [id number] Author: Isidra (Rn) Mike, RN Service: (none) Author Type: Registered Nurse Type: ED Notes Filed: 02/14/2018 2:34 AM Note Text: Up to restroom. [facility] ED NOTE HNO ID: [id number] thor: Isidra (Rn) JENNIFER Mckeonervice: (none)Author Type: Registered NurseType: ED NotesFiled: 02/14/2018 1:19 AMNote Text: Patient back to bed safely. Dry heaving. Patient very uncomfortable stilleven after medication. Dr. Vincent at bs to speak with patient anddaughters. Aware of possible need for transfer to [place] to be seen by Norris epstein. [facility] ED NOTE HNO ID: [id number] Author: Isidra (Rn) Mike, RN Service: (none) Author Type: Registered Nurse Type: ED Notes Filed: 02/14/2018 1:07 AM Note Text: Pt's pain came down slightly to 7/10. Assisted up to restroom to void. IVF bolus complete. [facility] ED NOTE HNO ID: [id number] Author: Isidra (Rn) Mike, RN Service: (none) Author Type: Registered Nurse Type: ED Notes Filed: 02/13/2018 11:44 PM Note Text: Pt trying denies srinivas and crackers at this time. Dr. Vincent aware. [facility] ED NOTE HNO ID: [id number] Author: Isidra CabreraRn) Mike, RN Service: (none) Author Type: Registered Nurse Type: ED Notes Filed: 02/13/2018 11:30 PM Note Text: Rec'd report and assumed care of patient. [facility] Lipaseon 02-14-2018 Lipase 83 U/L High 16-61 [facility] Comment on above: Performed By: #### C BCDIF, CMP, LIPA, MG1 ####[facility] [address] [place] [address] Magnesiumon 02-14-2018 Magnesium 2.1 mg/dL Normal 1.7-2.3 [facility] Comment on above: Performed By: #### C BCDIF, CMP, LIPA, MG1 ####[facility] [address] [place] [address] Troponin Ton 02-14-2018 Troponin T.cardiac mass conc ug/L Normal 0.000-0.02 9 [facility] Comment on above: Performed By: #### T NT ####[facility] [address] [place] [address] Urinalysison 02-14-2018 Bilirubin, Urine Negative Normal Negative [facility] Comment on above: Performed By: #### U A ####[facility] [address] [place] [address] Hemoglobin mass conc (Bld) Negative Normal Negative [facility] Comment on above: Performed By: #### U A ####[facility] [address] [place] [address] Leukest Negative Normal Negative [facility] Comment on above: Performed By: #### U A ####[facility] [address] [place] [address] pH of blood 7.0 [pH] Normal 5.0-8.0 [facility] Comment on above: Performed By: #### U A ####[facility] [address] [place] [address] Protein, Urine Negative Normal Negative [facility] Comment on above: Performed By: #### U A ####[facility] [address] [place] [address] Specific [place], Ur 1.010 Normal 1.001-1 .02 9 [facility] Comment on above: Performed By: #### U A ####[facility] [address] [place] [address] Urine, clarity Clear Normal Clear [facility] Comment on above: Performed By: #### U A ####[facility] [address] [place] [address] Urine, color Yellow Normal Yellow [facility] Comment on above: Performed By: #### U A ####[facility] [address] [place] [address] Urine, glucose presence Negative Normal Negative [facility] Comment on above: Performed By: #### U A ####[facility] [address] [place] [address] Urine, ketones presence 15 Critically abnormal Negative [facility] Comment on above: Performed By: #### U A ####[facility] [address] [place] [address] Urine, nitrite presence Negative Normal Negative [facility] Comment on above: Performed By: #### U A ####[facility] [address] [place] [address] Urine, urobilinogen 0.2 Normal 0.2-1.0 [facility] Comment on above: Performed By: #### U A ####[facility] [address] [place] [address] XR ACUTE ABD SERIES 2V ABD+C XRon [...] No acute findings in the abdomen and pelvis.Home Health Lvn: EDE Transcribe Date/Time: Feb 13 2018 10:37PDictated by : JONATHAN PAZ MDThikaushik examination was interpreted and the report reviewed and electronically signed by: JONATHAN PAZ MD on Feb 13 2018 10:41PM [id number] [facility] ED NOTEon 02-13-2018 ED NOTE HNO ID: [id number] thor: Feliz (Rn) Sabas, JENNIFERervice: (none)Author Type: Registered NurseType: ED NotesFiled: 02/13/2018 9:22 PMNote Text:Pt presents for abdominal pain after many days of nausea/vomiting patienthad recent back surgery, discharged yesterday. Taking phenergan which hasrelieved vomiting, but abdominal crampin persists. [facility] ED PROV NOTEon 02-13-2018 ED PROV NOTE HNO ID: [id number] thor: KRISTEN Hernandezervice: (none)Author Type: PhysicianType: ED Provider NotesFiled: 02/14/2018 2:46 AMNote Text:ED Provider NotePatient Name: Milena Puri [facility] [id number] DATE: 02/13/18HistoryPatient presents with:Nausea AND Vomiting: vomiting stoppedWeaknessAbdominal PainPatient s/p lumbar fusion POD #5 here for persistent n/v and generalizedweakness. Patient reports [facility] and this [facility] she has been vomiting [...] Abs Lymph 1.06 1.00 - 4.00 k/uL [place]% 9.4 % Abs [place] 0.93 (H) <0.87 k/uL Eosin% 2.5 % Abs Eosin 0.25 <0.46 k/uL Baso% 0.3 % Abs Baso 0.03 <0.11 k/uLURINALYSISResult Value Ref Range Color Yellow Yellow Appearance (U) Clear Clear Glucose, Urine Negative Negative mg/dL Bilirubin, Urine Negative Negative Ketones, Urine 15 (A) Negative Specific [place], Ur 1.010 1.001 - 1.029 Hemoglobin/Blood,Ur Negative Negative pH, Urine 7.0 5.0 - 8.0 Protein, Urine Negative Negative mg/dL Urobilinogen 0.2 0.2 - 1.0 Nitrites Negative Negative Leukest Negative NegativeXR ACUTE ABD SERIES 3V (2V ABD/1V CXR) Final Result IMPRESSION: 1. No active disease in the chest. 2. No acute findings in the abdomen and pelvis. Home Health Lvn: PSCB Transcribe Date/Time: Feb 13 2018 10:37P Dictated [...] with dry heaves despitetreatment. Will transfer to [facility] with ortho consult if needed. D[facility] and Flakita from [facility], [facility] can beconsulted if needed at [facility].PlanThe Patient was TRANSFERRED [facility]Condition at time of disposition: stableSIGNATURE: Reynaldo Tate MD02/14/18 0220Taylor Vincent MD02/14/18 0246 [facility] US ARTERIAL PVR LOWERon 11-2 US ARTERIAL PVR LOWER * * *Final [...] 08 2017 3:11PDictated by : IZABELLA COLE MDThikaushik examination was interpreted and the report reviewed and electronically signed by: IZABELLA COLE MD on Sep 08 2017 3:14PM [id number] Normal [facility] Chart Maintenanceon 05-28-20 17 Left ventricular Ejection fraction 60 % [facility] Work Phone: Office Visiton 05-20-2017 Documentation of current medications (procedure) Done Invalid Interpretation Code [facility] Work Phone: Fall risk assessment No [facility] Work Phone: Protein mass conc Done [facility] Work Phone: Clinical Lists Update: 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-2017 Tobacco smoking status NHIS Never smoker [facility] Work Phone: Tobacco use CPHS Never smoker Invalid Interpretation Code [facility] Work Phone: Culture, urine Bacteria identified Cx Nom (U) Klebsiella pneumoniae sp pneum [facility] Work Phone: Bacteria identified Cx Nom (U) Citrobacter freundii [facility] Work Phone: Bacteria identified Cx Nom (U) Positive [facility] Work Phone: Vital Signs Date Time Vital Sign Value Performing Clinician Facility 07-28-2025 11:48-0400 Body height 162.6 cm Chantell Cruz MD Work Phone: [facility] 07-28-2025 11:48-0400 Body mass index (BMI) [Ratio] 29.52 kg/m2 Chantell Cruz MD Work Phone: [facility] 07-28-2025 11:48-0400 Body weight 78.02 kg Chantell Cruz MD Work Phone: [facility] [employer] 07-28-2025 11:48-0400 Diastolic blood pressure 76 mm[Hg] Chantell Cruz MD Work Phone: [facility] 07-28-2025 11:48-0400 Heart rate 83 /min Chantell Cruz MD Work Phone: [facility] 07-28-2025 11:48-0400 Systolic blood pressure 132 mm[Hg] Chantell Cruz MD Work Phone: [facility] 06-23-2025 11:25-0400 Body temperature 97.7 [degF] Chantell Cruz MD Work Phone: [facility] 06-23-2025 11:25-0400 Diastolic blood pressure 92 mm[Hg] Chantell Cruz MD Work Phone: [facility] 06-23-2025 11:25-0400 Heart rate 75 /min Chantell Cruz MD Work Phone: [facility] 06-23-2025 11:25-0400 Respiratory rate 16 /min Chantell Cruz MD Work Phone: [facility] 06-23-2025 11:25-0400 SaO2% (BldA) [Mass fraction] 96 % Chantell Cruz MD Work Phone: [facility] 06-23-2025 11:25-0400 Systolic blood pressure 155 mm[Hg] Chantell Cruz MD Work Phone: [facility] 06-14-2025 10:01-0400 Body height 165.1 cm Tram Sampson MD Work Phone: [facility] [place] 06-14-2025 10:01-0400 Body mass index (BMI) [Ratio] 29.29 kg/m2 Tram Sampson MD Work Phone: [facility] [place] 06-14-2025 10:01-0400 Body weight 79.83 kg Tram Sampson MD Work Phone: [facility] [place] 06-14-2025 10:01-0400 Diastolic blood pressure 82 mm[Hg] Tram Sampson MD Work Phone: [facility] [place] 06-14-2025 10:01-0400 Systolic blood pressure 146 mm[Hg] Tram Sampson MD Work Phone: [facility] [place] 05-19-2025 10:55-0400 Body temperature 98.71 [degF] Chantell Cruz MD Work Phone: [facility] 05-19-2025 10:55-0400 Diastolic blood pressure 85 mm[Hg] Chantell Cruz MD Work Phone: [facility] 05-19-2025 10:55-0400 Heart rate 70 /min Chantell Cruz MD Work Phone: [facility] 05-19-2025 10:55-0400 Respiratory rate 16 /min Chantell Cruz MD Work Phone: [facility] 05-19-2025 10:55-0400 SaO2% (BldA) [Mass fraction] 98 % Chantell Cruz MD Work Phone: [facility] 05-19-2025 10:55-0400 Systolic blood pressure 138 mm[Hg] Chantell Cruz MD Work Phone: [facility] 05-16-2025 16:34-0400 Body height 163.32 cm Katarian Stevens [employer] Work Phone: [facility] 05-16-2025 16:34-0400 Body mass index (BMI) [Ratio] 29.4 kg/m2 Katarina Stevens [employer] Work Phone: [facility] 05-16-2025 16:34-0400 Body temperature 9.7 [degF] Katarina Stevens [employer]STRU[employer] Work Phone: [facility] 05-16-2025 16:34-0400 Body weight 78.47 kg Katarina Stevens [employer] Work Phone: [facility] 05-16-2025 16:34-0400 Diastolic blood pressure 60 mm[Hg] Katarina Stevens [employer]STRU[employer] Work Phone: [facility] 05-16-2025 16:34-0400 Heart rate 86 /min Katarina Stevens [employer]STRU[employer] Work Phone: [facility] 05-16-2025 16:34-0400 Respiratory rate 18 /min Katarina Stevens [employer]STRU[employer] Work Phone: [facility] 05-16-2025 16:34-0400 SaO2% (BldA) [Mass fraction] 97 % Katarina Stevens [employer] Work Phone: [facility] 05-16-2025 16:34-0400 Systolic blood pressure 102 mm[Hg] Katarina Stevens [employer] Work Phone: [facility] 04-28-2025 17:53-0400 Body height 163.32 cm Katarina Stevens [employer]STRU[employer] Work Phone: [facility] 04-28-2025 17:53-0400 Body mass index (BMI) [Ratio] 29.7 kg/m2 Katarina Stevens [employer]STRU[employer] Work Phone: [facility] 04-28-2025 17:53-0400 Body temperature 97.9 [degF] Katarina Stevens [employer]STRU[employer] Work Phone: [facility] 04-28-2025 17:53-0400 Body weight 79.37 kg Katarina Stevens [employer]STRU[employer] Work Phone: [facility] 04-28-2025 17:53-0400 Diastolic blood pressure 70 mm[Hg] Katarina Stevens [employer]STRU[employer] Work Phone: [facility] 04-28-2025 17:53-0400 Heart rate 88 /min Katarina Stevens [employer]STRU[employer] Work Phone: [facility] 04-28-2025 17:53-0400 Respiratory rate 18 /min Katarina Stevens [employer]STRU[employer] Work Phone: [facility] 04-28-2025 17:53-0400 SaO2% (BldA) [Mass fraction] 96 % Katarina Stevens [employer]STRU[employer] Work Phone: [facility] 04-28-2025 17:53-0400 Systolic blood pressure 115 mm[Hg] Katarina Stevens CONSTRU[employer] Work Phone: [facility] 04-14-2025 11:18-0400 Body height 165.1 cm Chantell Cruz MD Work Phone: [facility] 04-14-2025 11:18-0400 Body mass index (BMI) [Ratio] 28.62 kg/m2 Chantell Cruz MD Work Phone: [facility] 04-14-2025 11:18-0400 Body weight 78.02 kg Chantell Cruz MD Work Phone: [facility] 04-14-2025 11:18-0400 Diastolic blood pressure 76 mm[Hg] Chantell Cruz MD Work Phone: [facility] 04-14-2025 11:18-0400 Heart rate 76 /min Chantell Cruz MD Work Phone: [facility] 04-14-2025 11:18-0400 Systolic blood pressure 113 mm[Hg] Chantell Cruz MD Work Phone: [facility] 04-05-2025 16:46-0400 Body height 163.32 cm Katarina Stevens [employer]STRU[employer] Work Phone: [facility] 03-14-2025 15:48-0400 Body mass index (BMI) [Ratio] 30.1 kg/m2 Katarina Stevens [employer] Work Phone: [facility] 03-14-2025 15:48-0400 Body temperature 97.7 [degF] Katarina Stevens [employer]STRU[employer] Work Phone: [facility] 03-14-2025 15:48-0400 Body weight 80.28 kg Katarina Stevens [employer] Work Phone: [facility] 03-14-2025 15:48-0400 Diastolic blood pressure 60 mm[Hg] Katarina Stevens [employer] Work Phone: [facility] 03-14-2025 15:48-0400 Heart rate 71 /min Katarina Stevens [employer] Work Phone: [facility] 03-14-2025 15:48-0400 Respiratory rate 18 /min Katarinatim Stevens [employer] Work Phone: [facility] 03-14-2025 15:48-0400 SaO2% (BldA) [Mass fraction] 97 % Katarina Stevens [employer] Work Phone: [facility] 03-14-2025 15:48-0400 Systolic blood pressure 130 mm[Hg] Katarina Stevens [employer] Work Phone: [facility] 02-28-2025 16:28-0400 Body height 163.32 cm Katarina Stevens [employer] Work Phone: [facility] 02-28-2025 16:28-0400 Body mass index (BMI) [Ratio] 29.9 kg/m2 Katarina Stevens [employer] Work Phone: [facility] 02-28-2025 16:28-0400 Body temperature 79.9 [degF] Katarina Stevens [employer] Work Phone: [facility] 02-28-2025 16:28-0400 Body weight 79.83 kg Katarina Stevens [employer] Work Phone: [facility] 02-28-2025 16:28-0400 Diastolic blood pressure 60 mm[Hg] Katarina Stevens [employer] Work Phone: [facility] 02-28-2025 16:28-0400 Heart rate 78 /min Katarina Stevens [employer] Work Phone: [facility] 02-28-2025 16:28-0400 Respiratory rate 18 /min Katarina Stevens [employer] Work Phone: [facility] 02-28-2025 16:28-0400 SaO2% (BldA) [Mass fraction] 98 % Katarina Rodney [employer] Work Phone: [facility] 02-28-2025 16:28-0400 Systolic blood pressure 128 mm[Hg] Katarina Stevens [employer] Work Phone: [facility] 02-10-2025 13:34-0400 Body height 165.1 cm Chantell Cruz MD Work Phone: [facility] 02-10-2025 13:34-0400 Body mass index (BMI) [Ratio] 29.12 kg/m2 Chantell Cruz MD Work Phone: [facility] 02-10-2025 13:34-0400 Body weight 79.38 kg Chantell Cruz MD Work Phone: [facility] 02-10-2025 13:34-0400 Diastolic blood pressure 81 mm[Hg] Chantell Cruz MD Work Phone: [facility] 02-10-2025 13:34-0400 Heart rate 87 /min Chantell Cruz MD Work Phone: [facility] 02-10-2025 13:34-0400 Systolic blood pressure 131 mm[Hg] Chantell Cruz MD Work Phone: [facility] 02-03-2025 10:08-0400 Body temperature 97.9 [degF] Chantell Cruz MD Work Phone: [facility] 02-03-2025 10:08-0400 Diastolic blood pressure 75 mm[Hg] Chantell Cruz MD Work Phone: [facility] 02-03-2025 10:08-0400 Heart rate 64 /min Chantell Cruz MD Work Phone: [facility] 02-03-2025 10:08-0400 Respiratory rate 16 /min Chantell Cruz MD Work Phone: [facility] 02-03-2025 10:08-0400 SaO2% (BldA) [Mass fraction] 98 % Chantell Cruz MD Work Phone: [facility] 02-03-2025 10:08-0400 Systolic blood pressure 136 mm[Hg] Chantell Cruz MD Work Phone: [facility] 01-20-2025 13:26-0400 Body temperature 97.7 [degF] Chantell Cruz MD Work Phone: [facility] 01-20-2025 13:26-0400 Diastolic blood pressure 79 mm[Hg] Chantell Cruz MD Work Phone: [facility] 01-20-2025 13:26-0400 Heart rate 73 /min Chantell Cruz MD Work Phone: [facility] 01-20-2025 13:26-0400 Respiratory rate 16 /min Chantell Cruz MD Work Phone: [facility] 01-20-2025 13:26-0400 SaO2% (BldA) [Mass fraction] 91 % Chantell Cruz MD Work Phone: [facility] 01-20-2025 13:26-0400 Systolic blood pressure 132 mm[Hg] Chantell Cruz MD Work Phone: [facility] 01-20-2025 12:56-0400 Body height 165.1 cm Chantell Cruz MD Work Phone: [facility] 01-20-2025 12:56-0400 Body mass index (BMI) [Ratio] 29.29 kg/m2 Chantell Cruz MD Work Phone: [facility] 01-20-2025 12:56-0400 Body weight 79.83 kg Chantell Cruz MD Work Phone: [facility] 01-04-2025 20:20-0400 Body height 163.32 cm Katarina BARROS Work Phone: [facility] 01-04-2025 20:20-0400 Body mass index (BMI) [Ratio] 29.9 kg/m2 Katarina Stevens [employer] Work Phone: [facility] 01-04-2025 20:20-0400 Body temperature 98.2 [degF] Katarina Stevens [employer] Work Phone: [facility] 01-04-2025 20:20-0400 Body weight 79.83 kg Katarina Stevens [employer] Work Phone: [facility] 01-04-2025 20:20-0400 Diastolic blood pressure 60 mm[Hg] Katarina Stevens [employer] Work Phone: [facility] 01-04-2025 20:20-0400 Heart rate 86 /min Katarina Stevens [employer] Work Phone: [facility] 01-04-2025 20:20-0400 Respiratory rate 18 /min Katarinatim ArteagaStevens [employer]STRUCTION OR [employer] Work Phone: [facility] 01-04-2025 20:20-0400 SaO2% (BldA) [Mass fraction] 96 % Katarina Stevens [employer]STRU[employer] Work Phone: [facility] 01-04-2025 20:20-0400 Systolic blood pressure 120 mm[Hg] Katarina Stevens [employer] Work Phone: [facility] 12-30-2024 15:58-0400 Body height 165.1 cm Chantell Cruz MD Work Phone: [facility] 12-30-2024 15:58-0400 Body mass index (BMI) [Ratio] 29.29 kg/m2 Chantell Cruz MD Work Phone: [facility] 12-30-2024 15:58-0400 Body weight 79.83 kg Chantell Cruz MD Work Phone: [facility] 12-30-2024 15:58-0400 Diastolic blood pressure 78 mm[Hg] Chantell Cruz MD Work Phone: [facility] 12-30-2024 15:58-0400 Heart rate 84 /min Chantell Cruz MD Work Phone: [facility] 12-30-2024 15:58-0400 Systolic blood pressure 120 mm[Hg] Chantell Cruz MD Work Phone: [facility] 12-26-2024 09:40-0400 Diastolic blood pressure 73 mm[Hg] Prema Garcia MD Work Phone: [facility] 12-26-2024 09:40-0400 Heart rate 72 /min Prema Garcia MD Work Phone: [facility] 12-26-2024 09:40-0400 SaO2% (BldA) [Mass fraction] 97 % Prema Garcia MD Work Phone: [facility] 12-26-2024 09:40-0400 Systolic blood pressure 122 mm[Hg] Prema Garcia MD Work Phone: [facility] 12-26-2024 09:23-0400 Body temperature 97.11 [degF] Prema Garcia MD Work Phone: [facility] 12-26-2024 09:23-0400 Respiratory rate 16 /min Prema Garcia MD Work Phone: [facility] 12-26-2024 08:18-0400 Body height 165.1 cm Prema Garcia MD Work Phone: [facility] 12-26-2024 08:18-0400 Body mass index (BMI) [Ratio] 27.46 kg/m2 Prema Garcia MD Work Phone: [facility] 12-26-2024 08:18-0400 Body weight 74.84 kg Prema Garcia MD Work Phone: [facility] 12-08-2024 20:04-0500 Body height 163.32 cm Katarina Stevens NP-C Work Phone: [facility] 12-08-2024 20:04-0500 Body mass index (BMI) [Ratio] 29.2 kg/m2 Katarinatim Stevens [employer] Work Phone: [facility] 12-08-2024 20:04-0500 Body temperature 97.3 [degF] Katarina Stevens [employer] Work Phone: [facility] 12-08-2024 20:04-0500 Body weight 78.01 kg Katarinatim Stevens [employer] Work Phone: [facility] 12-08-2024 20:04-0500 Diastolic blood pressure 68 mm[Hg] Katarinatim Stevens [employer] Work Phone: [facility] 12-08-2024 20:04-0500 Heart rate 91 /min Katarina Stevens [employer] Work Phone: [facility] 12-08-2024 20:04-0500 Respiratory rate 18 /min Katarinatim Stevens [employer] Work Phone: [facility] 12-08-2024 20:04-0500 SaO2% (BldA) [Mass fraction] 97 % Katarina Stevens [employer] Work Phone: [facility] 12-08-2024 20:04-0500 Systolic blood pressure 128 mm[Hg] Katarina Stevens [employer] Work Phone: [facility] 11-21-2024 08:45-0500 Diastolic blood pressure 67 mm[Hg] Prema Garcia MD Work Phone: [facility] 11-21-2024 08:45-0500 Heart rate 61 /min Prema Garcia MD Work Phone: [facility] 11-21-2024 08:45-0500 SaO2% (BldA) [Mass fraction] 95 % Prema Garcia MD Work Phone: [facility] 11-21-2024 08:45-0500 Systolic blood pressure 126 mm[Hg] Prema Garcia MD Work Phone: [facility] 11-21-2024 08:30-0500 Body temperature 97 [degF] Prema Garcia MD Work Phone: [facility] 11-21-2024 08:30-0500 Respiratory rate 16 /min Prema Garcia MD Work Phone: [facility] 09-29-2024 12:31-0500 Body mass index (BMI) [Ratio] 29.2 kg/m2 Katarina Stevens [employer] Work Phone: [facility] 09-29-2024 12:31-0500 Body temperature 97.9 [degF] Katarina Stevens [employer] Work Phone: [facility] 09-29-2024 12:31-0500 Body weight 78.01 kg Katarina Stevens [employer] Work Phone: [facility] 09-29-2024 12:31-0500 Diastolic blood pressure 60 mm[Hg] Katarina Stevens [employer] Work Phone: [facility] 09-29-2024 12:31-0500 Heart rate 99 /min Katarina Stevens [employer] Work Phone: [facility] 09-29-2024 12:31-0500 Respiratory rate 18 /min Katarina Stevens [employer] Work Phone: [facility] 09-29-2024 12:31-0500 SaO2% (BldA) [Mass fraction] 96 % Katarina Stevens [employer] Work Phone: [facility] 09-29-2024 12:31-0500 Systolic blood pressure 115 mm[Hg] Katarina Stevens [employer] Work Phone: [facility] 09-13-2024 10:49-0500 Body mass index (BMI) [Ratio] 29.4 kg/m2 Katarina Stevens [employer] Work Phone: [facility] 09-13-2024 10:49-0500 Body temperature 97.9 [degF] Katarina Stevens [employer] Work Phone: [facility] 09-13-2024 10:49-0500 Body weight 78.47 kg Katarina Stevens [employer] Work Phone: [facility] 09-13-2024 10:49-0500 Diastolic blood pressure 60 mm[Hg] Katarina Stevens [employer] Work Phone: [facility] 09-13-2024 10:49-0500 Heart rate 87 /min Katarina Stevens [employer] Work Phone: [facility] 09-13-2024 10:49-0500 Respiratory rate 18 /min Katarina Stevens [employer] Work Phone: [facility] 09-13-2024 10:49-0500 SaO2% (BldA) [Mass fraction] 96 % Katarina Stevens [employer] Work Phone: [facility] 09-13-2024 10:49-0500 Systolic blood pressure 116 mm[Hg] Katarina Stevens [employer] Work Phone: [facility] 07-06-2024 09:19-0400 Body height 165.1 cm Katarina Stevens Work Phone: [facility] 07-06-2024 09:19-0400 Body mass index (BMI) [Ratio] 28.29 kg/m2 Katarina Stevens Work Phone: [facility] 07-06-2024 09:19-0400 Body weight 77.11 kg Katarina Stevens Work Phone: [facility] 01-27-2024 15:23-0400 Body height 164.34 cm [facility] 01-27-2024 15:23-0400 Body mass index (BMI) [Ratio] 28.3 kg/m2 [facility] 01-27-2024 15:23-0400 Body temperature 97.7 [degF] [facility] 01-27-2024 15:23-0400 Body weight 76.65 kg [facility] 01-27-2024 15:23-0400 Diastolic blood pressure 70 mm[Hg] [facility] 01-27-2024 15:23-0400 Heart rate 80 /min [facility] 01-27-2024 15:23-0400 Respiratory rate 18 /min [facility] 01-27-2024 15:23-0400 SaO2% (BldA) [Mass fraction] 97 % [facility] 01-27-2024 15:23-0400 Systolic blood pressure 148 mm[Hg] [facility] 10-23-2023 14:48-0500 Body height 165.1 cm Chantell Cruz MD Work Phone: [facility] 10-23-2023 14:48-0500 Body mass index (BMI) [Ratio] 27.62 kg/m2 Chantell Cruz MD Work Phone: [facility] 10-23-2023 14:48-0500 Body weight 75.3 kg Chantell Cruz MD Work Phone: [facility] 10-23-2023 14:48-0500 Diastolic blood pressure 81 mm[Hg] Chantell Cruz MD Work Phone: [facility] 10-23-2023 14:48-0500 Systolic blood pressure 136 mm[Hg] Chantell Cruz MD Work Phone: [facility] 10-05-2023 16:16-0500 Body height 164.34 cm [facility] 10-05-2023 16:16-0500 Body mass index (BMI) [Ratio] 28 kg/m2 [facility] 10-05-2023 16:16-0500 Body temperature 97.7 [degF] [facility] 10-05-2023 16:16-0500 Body weight 75.74 kg [facility] 10-05-2023 16:16-0500 Diastolic blood pressure 70 mm[Hg] [facility] 10-05-2023 16:16-0500 Heart rate 91 /min [facility] 10-05-2023 16:16-0500 Respiratory rate 18 /min [facility] 10-05-2023 16:16-0500 SaO2% (BldA) [Mass fraction] 96 % [facility] 10-05-2023 16:16-0500 Systolic blood pressure 120 mm[Hg] [facility] 09-08-2023 10:33-0500 Body mass index (BMI) [Ratio] 28 kg/m2 [facility] 09-08-2023 10:33-0500 Body temperature 97.7 [degF] [facility] 09-08-2023 10:33-0500 Body weight 75.74 kg [facility] 09-08-2023 10:33-0500 Diastolic blood pressure 70 mm[Hg] [facility] 09-08-2023 10:33-0500 Heart rate 97 /min [facility] 09-08-2023 10:33-0500 Respiratory rate 18 /min [facility] 09-08-2023 10:33-0500 SaO2% (BldA) [Mass fraction] 97 % [facility] 09-08-2023 10:33-0500 Systolic blood pressure 115 mm[Hg] [facility] 08-11-2023 09:54-0400 Body height 165.1 cm Ba Hull MD Work Phone: [facility] 08-11-2023 09:54-0400 Body mass index (BMI) [Ratio] 27.62 kg/m2 Ba Hull MD Work Phone: [facility] 08-11-2023 09:54-0400 Body weight 75.3 kg Ba Hull MD Work Phone: [facility] 08-11-2023 07:50-0400 Diastolic blood pressure 88 mm[Hg] Ba Hull MD Work Phone: [facility] 08-11-2023 07:50-0400 Heart rate 75 /min Ba Hull MD Work Phone: [facility] 08-11-2023 07:50-0400 Systolic blood pressure 148 mm[Hg] Ba Hull MD Work Phone: [facility] 07-31-2023 09:43-0400 Diastolic blood pressure 76 mm[Hg] Ba Hull MD Work Phone: [facility] 07-31-2023 09:43-0400 Heart rate 76 /min Ba Hull MD Work Phone: [facility] 07-31-2023 09:43-0400 SaO2% (BldA) [Mass fraction] 97 % Ba Hull MD Work Phone: [facility] 07-31-2023 09:43-0400 Systolic blood pressure 118 mm[Hg] Ba Hull MD Work Phone: [facility] 07-31-2023 08:59-0400 Body height 165.1 cm Ba Hull MD Work Phone: [facility] 07-31-2023 08:59-0400 Body mass index (BMI) [Ratio] 27.69 kg/m2 Ba Hull MD Work Phone: [facility] 07-31-2023 08:59-0400 Body weight 75.48 kg Ba Hull MD Work Phone: [facility] 07-31-2023 08:59-0400 Respiratory rate 16 /min Ba Hull MD Work Phone: [facility] 06-12-2023 16:48-0400 Body height 164.34 cm [facility] 06-12-2023 16:48-0400 Body mass index (BMI) [Ratio] 27.8 kg/m2 [facility] 06-12-2023 16:48-0400 Body temperature 97.9 [degF] [facility] 06-12-2023 16:48-0400 Body weight 75.29 kg [facility] 06-12-2023 16:48-0400 Diastolic blood pressure 70 mm[Hg] [facility] 06-12-2023 16:48-0400 Heart rate 89 /min [facility] 06-12-2023 16:48-0400 Respiratory rate 18 /min [facility] 06-12-2023 16:48-0400 SaO2% (BldA) [Mass fraction] 96 % [facility] 06-12-2023 16:48-0400 Systolic blood pressure 138 mm[Hg] [facility] 06-10-2023 09:32-0400 Body height 165.1 cm Tram Sampson MD Work Phone: [facility] 06-10-2023 09:32-0400 Body weight 75.75 kg Tram Sampson MD Work Phone: [facility] 06-10-2023 09:32-0400 Diastolic blood pressure 70 mm[Hg] Tram Sampson MD Work Phone: [facility] 06-10-2023 09:32-0400 Systolic blood pressure 118 mm[Hg] Tram Sampson MD Work Phone: [facility] 04-16-2023 18:49-0400 Body height 164.34 cm [facility] 04-16-2023 18:49-0400 Body mass index (BMI) [Ratio] 27.8 kg/m2 [facility] 04-16-2023 18:49-0400 Body weight 75.29 kg [facility] 04-16-2023 18:49-0400 Diastolic blood pressure 60 mm[Hg] [facility] 04-16-2023 18:49-0400 Systolic blood pressure 120 mm[Hg] [facility] 03-30-2023 14:50-0400 Body height 164.34 cm [facility] 02-25-2023 15:28-0400 Body height 164.34 cm [facility] 02-25-2023 15:28-0400 Body mass index (BMI) [Ratio] 27.7 kg/m2 [facility] 02-25-2023 15:28-0400 Body temperature 97.5 [degF] [facility] 02-25-2023 15:28-0400 Body weight 74.84 kg [facility] 02-25-2023 15:28-0400 Diastolic blood pressure 70 mm[Hg] [facility] 02-25-2023 15:28-0400 Heart rate 74 /min [facility] 02-25-2023 15:28-0400 Respiratory rate 18 /min [facility] 02-25-2023 15:28-0400 SaO2% (BldA) [Mass fraction] 99 % [facility] 02-25-2023 15:28-0400 Systolic blood pressure 118 mm[Hg] [facility] 02-02-2023 16:12-0400 Body height 164.34 cm [facility] 02-02-2023 16:12-0400 Body mass index (BMI) [Ratio] 27.5 kg/m2 [facility] 02-02-2023 16:12-0400 Body temperature 97.5 [degF] [facility] 02-02-2023 16:12-0400 Body weight 74.38 kg [facility] 02-02-2023 16:12-0400 Diastolic blood pressure 70 mm[Hg] [facility] 02-02-2023 16:12-0400 Heart rate 79 /min [facility] 02-02-2023 16:12-0400 Respiratory rate 18 /min [facility] 02-02-2023 16:12-0400 SaO2% (BldA) [Mass fraction] 98 % [facility] 02-02-2023 16:12-0400 Systolic blood pressure 124 mm[Hg] [facility] 12-04-2022 11:52-0500 Body mass index (BMI) [Ratio] 28.2 kg/m2 [facility] 12-04-2022 11:52-0500 Body temperature 97.7 [degF] [facility] 12-04-2022 11:52-0500 Body weight 76.2 kg [facility] 12-04-2022 11:52-0500 Diastolic blood pressure 60 mm[Hg] [facility] 12-04-2022 11:52-0500 Heart rate 77 /min [facility] 12-04-2022 11:52-0500 Respiratory rate 18 /min [facility] 12-04-2022 11:52-0500 SaO2% (BldA) [Mass fraction] 96 % [facility] 12-04-2022 11:52-0500 Systolic blood pressure 120 mm[Hg] [facility] 11-13-2022 17:34-0500 Body mass index (BMI) [Ratio] 27.7 kg/m2 [facility] 11-13-2022 17:34-0500 Body temperature 97.2 [degF] [facility] 11-13-2022 17:34-0500 Body weight 74.84 kg [facility] 11-13-2022 17:34-0500 Diastolic blood pressure 70 mm[Hg] [facility] 11-13-2022 17:34-0500 Heart rate 83 /min [facility] 11-13-2022 17:34-0500 Respiratory rate 18 /min [facility] 11-13-2022 17:34-0500 SaO2% (BldA) [Mass fraction] 96 % [facility] 11-13-2022 17:34-0500 Systolic blood pressure 120 mm[Hg] [facility] 09-16-2022 14:50-0500 Body height 164.34 cm [facility] Work Phone: 09-16-2022 14:50-0500 Body mass index (BMI) [Ratio] 28.2 kg/m2 [facility] Work Phone: 09-16-2022 14:50-0500 Body temperature 96.4 [degF] [facility] Work Phone: 09-16-2022 14:50-0500 Body weight 76.2 kg [facility] Work Phone: 09-16-2022 14:50-0500 Diastolic blood pressure 70 mm[Hg] [facility] Work Phone: 09-16-2022 14:50-0500 Heart rate 89 /min [facility] Work Phone: 09-16-2022 14:50-0500 Respiratory rate 18 /min [facility] Work Phone: 09-16-2022 14:50-0500 SaO2% (BldA) [Mass fraction] 97 % [facility] Work Phone: 09-16-2022 14:50-0500 Systolic blood pressure 136 mm[Hg] [facility] Work Phone: 07-24-2022 19:41-0400 Body mass index (BMI) [Ratio] 27.8 kg/m2 [facility] Work Phone: 07-24-2022 19:41-0400 Body temperature 97.5 [degF] [facility] Work Phone: 07-24-2022 19:41-0400 Body weight 75.29 kg [facility] Work Phone: 07-24-2022 19:41-0400 Diastolic blood pressure 84 mm[Hg] [facility] Work Phone: 07-24-2022 19:41-0400 Heart rate 82 /min [facility] Work Phone: 07-24-2022 19:41-0400 Respiratory rate 18 /min [facility] Work Phone: 07-24-2022 19:41-0400 SaO2% (BldA) [Mass fraction] 96 % [facility] Work Phone: 07-24-2022 19:41-0400 Systolic blood pressure 140 mm[Hg] [facility] Work Phone: 06-11-2022 15:08-0400 Body height 164.34 cm [facility] Work Phone: 06-11-2022 15:08-0400 Body mass index (BMI) [Ratio] 27.8 kg/m2 [facility] Work Phone: 06-11-2022 15:08-0400 Body temperature 97.5 [degF] [facility] Work Phone: 06-11-2022 15:08-0400 Body weight 75.29 kg [facility] Work Phone: 06-11-2022 15:08-0400 Diastolic blood pressure 80 mm[Hg] [facility] Work Phone: 06-11-2022 15:08-0400 Heart rate 92 /min [facility] Work Phone: 06-11-2022 15:08-0400 Respiratory rate 18 /min [facility] Work Phone: 06-11-2022 15:08-0400 SaO2% (BldA) [Mass fraction] 97 % [facility] Work Phone: 06-11-2022 15:08-0400 Systolic blood pressure 140 mm[Hg] [facility] Work Phone: 04-16-2022 14:40-0400 Body height 164.34 cm [facility] Work Phone: 04-16-2022 14:40-0400 Body mass index (BMI) [Ratio] 28 kg/m2 [facility] Work Phone: 04-16-2022 14:40-0400 Body temperature 97.9 [degF] [facility] [facility] Work Phone: 04-16-2022 14:40-0400 Body weight 75.74 kg [facility] Work Phone: 04-16-2022 14:40-0400 Diastolic blood pressure 70 mm[Hg] [facility] Work Phone: 04-16-2022 14:40-0400 Heart rate 84 /min [facility] Work Phone: 04-16-2022 14:40-0400 Respiratory rate 18 /min [facility] Work Phone: 04-16-2022 14:40-0400 SaO2% (BldA) [Mass fraction] 95 % [facility] Work Phone: 04-16-2022 14:40-0400 Systolic blood pressure 122 mm[Hg] [facility] Work Phone: 03-07-2022 18:46-0400 Body mass index (BMI) [Ratio] 28.2 kg/m2 [facility] Work Phone: 03-07-2022 18:46-0400 Body temperature 97.3 [degF] [facility] Work Phone: 03-07-2022 18:46-0400 Body weight 76.2 kg [facility] Work Phone: 03-07-2022 18:46-0400 Diastolic blood pressure 60 mm[Hg] [facility] Work Phone: 03-07-2022 18:46-0400 Heart rate 83 /min [facility] Work Phone: 03-07-2022 18:46-0400 Respiratory rate 18 /min [facility] Work Phone: 03-07-2022 18:46-0400 SaO2% (BldA) [Mass fraction] 18 % [facility] Work Phone: 03-07-2022 18:46-0400 Systolic blood pressure 110 mm[Hg] [facility] Work Phone: 03-07-2022 18:46-0400 Body height 164.34 cm [facility] Work Phone: 03-07-2022 18:46-0400 Body mass index (BMI) [Ratio] 28.2 kg/m2 [facility] Work Phone: 03-07-2022 18:46-0400 Body temperature 97.3 [degF] [facility] Work Phone: 03-07-2022 18:46-0400 Body weight 76.2 kg [facility] Work Phone: 03-07-2022 18:46-0400 Diastolic blood pressure 60 mm[Hg] [facility] Work Phone: 03-07-2022 18:46-0400 Heart rate 83 /min [facility] Work Phone: 03-07-2022 18:46-0400 Respiratory rate 18 /min [facility] Work Phone: 03-07-2022 18:46-0400 SaO2% (BldA) [Mass fraction] 18 % [facility] Work Phone: 03-07-2022 18:46-0400 Systolic blood pressure 110 mm[Hg] [facility] Work Phone: 02-17-2022 16:17-0400 Body mass index (BMI) [Ratio] 28.2 kg/m2 [facility] Work Phone: 02-17-2022 16:17-0400 Body temperature 97.9 [degF] [facility] Work Phone: 02-17-2022 16:17-0400 Body weight 76.2 kg [facility] Work Phone: 02-17-2022 16:17-0400 Diastolic blood pressure 70 mm[Hg] [facility] Work Phone: 02-17-2022 16:17-0400 Heart rate 85 /min [facility] Work Phone: 02-17-2022 16:17-0400 Respiratory rate 18 /min [facility] Work Phone: 02-17-2022 16:17-0400 SaO2% (BldA) [Mass fraction] 97 % [facility] Work Phone: 02-17-2022 16:17-0400 Systolic blood pressure 122 mm[Hg] [facility] Work Phone: 02-17-2022 16:17-0400 Body mass index (BMI) [Ratio] 28.2 kg/m2 [facility] Work Phone: 02-17-2022 16:17-0400 Body temperature 97.9 [degF] [facility] Work Phone: 02-17-2022 16:17-0400 Body weight 76.2 kg [facility] Work Phone: 02-17-2022 16:17-0400 Diastolic blood pressure 70 mm[Hg] [facility] Work Phone: 02-17-2022 16:17-0400 Heart rate 85 /min [facility] Work Phone: 02-17-2022 16:17-0400 Respiratory rate 18 /min [facility] Work Phone: 02-17-2022 16:17-0400 SaO2% (BldA) [Mass fraction] 97 % [facility] Work Phone: 02-17-2022 16:17-0400 Systolic blood pressure 122 mm[Hg] [facility] Work Phone: 01-21-2022 17:02-0400 Body mass index (BMI) [Ratio] 28.5 kg/m2 [facility] Work Phone: 01-21-2022 17:02-0400 Body temperature 97.3 [degF] [facility] Work Phone: 01-21-2022 17:02-0400 Body weight 77.11 kg [facility] Work Phone: 01-21-2022 17:02-0400 Diastolic blood pressure 70 mm[Hg] [facility] Work Phone: 01-21-2022 17:02-0400 Heart rate 93 /min [facility] Work Phone: 01-21-2022 17:02-0400 Respiratory rate 18 /min [facility] Work Phone: 01-21-2022 17:02-0400 SaO2% (BldA) [Mass fraction] 98 % [facility] Work Phone: 01-21-2022 17:02-0400 Systolic blood pressure 130 mm[Hg] [facility] Work Phone: 01-21-2022 17:02-0400 Body mass index (BMI) [Ratio] 28.5 kg/m2 [facility] Work Phone: 01-21-2022 17:02-0400 Body temperature 97.3 [degF] [facility] Work Phone: 01-21-2022 17:02-0400 Body weight 77.11 kg [facility] Work Phone: 01-21-2022 17:02-0400 Diastolic blood pressure 70 mm[Hg] [facility] Work Phone: 01-21-2022 17:02-0400 Heart rate 93 /min [facility] Work Phone: 01-21-2022 17:02-0400 Respiratory rate 18 /min [facility] Work Phone: 01-21-2022 17:02-0400 SaO2% (BldA) [Mass fraction] 98 % [facility] Work Phone: 01-21-2022 17:02-0400 Systolic blood pressure 130 mm[Hg] [facility] Work Phone: 12-06-2021 15:47-0500 Body mass index (BMI) [Ratio] 28.2 kg/m2 [facility] Work Phone: 12-06-2021 15:47-0500 Body temperature 97.3 [degF] [facility] Work Phone: 12-06-2021 15:47-0500 Body weight 76.2 kg [facility] Work Phone: 12-06-2021 15:47-0500 Diastolic blood pressure 74 mm[Hg] [facility] Work Phone: 12-06-2021 15:47-0500 Heart rate 90 /min [facility] Work Phone: 12-06-2021 15:47-0500 Respiratory rate 18 /min [facility] Work Phone: 12-06-2021 15:47-0500 SaO2% (BldA) [Mass fraction] 97 % [facility] Work Phone: 12-06-2021 15:47-0500 Systolic blood pressure 122 mm[Hg] [facility] Work Phone: 02-25-2021 08:30-0400 Body temperature 97.7 [degF] Chantell Cruz MD Work Phone: [facility] Work Phone: 02-25-2021 08:30-0400 Diastolic blood pressure 80 mm[Hg] Chantell Cruz MD Work Phone: [facility] Work Phone: 02-25-2021 08:30-0400 Heart rate 74 /min Chantell Cruz MD Work Phone: [facility] Work Phone: 02-25-2021 08:30-0400 Respiratory rate 14 /min Chantell Cruz MD Work Phone: [facility] Work Phone: 02-25-2021 08:30-0400 SaO2% (BldA) [Mass fraction] 94 % Chantell Cruz MD Work Phone: [facility] Work Phone: 02-25-2021 08:30-0400 Systolic blood pressure 142 mm[Hg] Chantell Cruz MD Work Phone: [facility] Work Phone: 02-25-2021 07:16-0400 Body height 165.1 cm Chantell Cruz MD Work Phone: [facility] Work Phone: 02-25-2021 07:16-0400 Body mass index (BMI) [Ratio] 28.29 kg/m2 Chantell Cruz MD Work Phone: [facility] Work Phone: 02-25-2021 07:16-0400 Body weight 77.11 kg Chantell Cruz MD Work Phone: [facility] Work Phone: 01-16-2021 09:10-0400 BP Diastolic 70 [...] Phone: 09-10-2020 08:55-0500 BP Diastolic 76 mm[Hg] Chantell Anthony [facility] , [place] 09-10-2020 08:55-0500 BP Systolic 132 mm[Hg] [facility] [place] 09-10-2020 08:55-0500 Pulse (Heart Rate) 66 /min [facility] [place] 09-10-2020 08:55-0500 Pulse Oximetry 99 % [facility] [place] 09-10-2020 08:55-0500 Respiratory Rate 16 /min Chantell Mcdaniel [facility], [place] 09-10-2020 07:21-0500 BMI (Body Mass Index) 27.12 kg/m2 Chantell Mcdaniel [facility], [place] 09-10-2020 07:21-0500 Body weight 73.94 kg Chantell Mcdaniel [facility] , [place] 09-10-2020 07:21-0500 Height 165.1 cm Chantell Mcdaniel [facility] , [place] 09-10-2020 07:19-0500 Body Temperature 97.5 [degF] Chantell Mcdaniel [facility], [place] 05-20-2017 10:00-0400 BMI (Body Mass Index) 26.52 kg/m2 Cristal iGoadrianne [facility] Work Phone: 05-20-2017 10:00-0400 BP Diastolic 60 mm[Hg] Harumi DeFinis [facility] Work Phone: 05-20-2017 10:00-0400 BP Systolic 120 mm[Hg] Marcusumi DeFinis [facility] Work Phone: 05-20-2017 10:00-0400 Height 165.1 cm Marcusumi DeFinis [facility] Work Phone: 05-20-2017 10:00-0400 Pulse (Heart Rate) 68 /min Cristal DeFinis [facility] Work Phone: 05-20-2017 10:00-0400 Respiratory Rate 20 /min Marcusumi DeFinis [facility] Work Phone: 05-20-2017 10:00-0400 Weight 72.3 kg Cristal DeFinis [facility] Work Phone: Encounters Encounter Date Encounter Type Care Provider Facility Start: 07-28-2025 End: 07-28-2025 Office outpatient visit 25 minutes Chantell Cruz MD Work Phone: [facility] [place] Comment on above: Chronic left-sided l ow back pain without sciatica (Primary Dx); Postlaminectomy syndrome, lumbar region; Lumbar facet arthropathy Start: 07-28-2025 End: 07-28-2025 ambulatory KATARINA STEVENS [facility] Start: 06-23-2025 End: 06-23-20[facility] Start: 06-23-2025 End: 06-23-2025 Subsequent hospital visit by physician Chantell Cruz MD Work Phone: 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 Work Phone: [facility] Start: 06-20-2025 End: 06-21-2025 Follow-up encounter Tram Sampson MD Work Phone: [facility] Start: 06-14-2025 End: 06-14-2025 Female genitalia finding Tram Sampson MD Work Phone: [facility] Start: 06-14-2025 End: 06-14-2025 Patient encounter procedure Tram Sampson MD Work Phone: [facility] Comment on above: Gynecologic exam nor mal (Primary Dx); Screening for depression; Cervical cancer screening; Breast cancer screening by mammogram; Screening for osteoporosis; Menopause; Vaginal atrophy Start: 05-22-2025 End: 05-22-2025 Telephone encounter Chantell Cruz MD Work Phone: [facility] Comment on above: Other (Follow up pro cedure ) Start: 05-19-2025 End: 05-19-2025 ambulatory CHANTELL [facility] Start: 05-19-2025 End: 05-19-2025 Subsequent hospital visit by physician Chantell Cruz MD Work Phone: [facility] Start: 05-19-2025 End: 05-19-2025 Subsequent hospital visit by physician [facility] Simona Arm BEHZAD Franco X-ray Comment on above: Lumbar back pain Start: 05-19-2025 End: 05-19-2025 ambulatory KATARINA STEVENS [facility] Start: 05-18-2025 End: 05-18-2025 ambulatory Polina Carpio BURGLAR ALARM INSPECTOR - FASHION CONSULTANT SELLING Work Phone: [facility] Start: 05-18-2025 End: 05-18-2025 Telephone encounter Chantell Cruz MD Work Phone: 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 Facility:[facility] Start: 04-28-2025 End: 04-28-2025 ambulatory Katarina Stevens CONSTRUCTION OR [employer] LABORER-C Work Phone: -Laboratory Specimen Start: 04-28-2025 End: 04-28-2025 Patient encounter procedure Katarina Stevens CONSTRUCTION OR [employer] LABORER-C -Laboratory Specimen Work Phone: Start: 04-28-2025 End: 04-28-2025 ambulatory Katarina Stevens CONSTRUCTION OR LEAK GANG LABORER Facility:[facility] Start: 04-14-2025 End: 04-14-2025 Office outpatient visit 25 minutes Chantell Cruz MD Work Phone: [facility] Comment on above: Lumbar facet arthrop athy (Primary Dx) Start: 04-14-2025 End: 04-14-2025 ambulatory CHANTELL CRUZ [facility] Start: 04-05-2025 End: 04-05-2025 ambulatory Katarina Stevens CONSTRUCTION OR [employer] LABORER-C Work Phone: [facility] Work Phone: Start: 04-05-2025 End: 04-05-2025 Patient encounter procedure Katarina Stevens CONSTRUCTION OR [employer] LABORER-C -Laboratory Specimen Work Phone: Start: 04-05-2025 End: 04-05-2025 ambulatory Katarina Stevens CONSTRUCTION OR LE[employer] G[employer] LABORER Facility:[facility] Start: 03-23-2025 End: 03-28-2025 Telephone encounter Chantell Cruz MD Work Phone: [facility] Clinical Communication Comment on above: Other (PT order) Start: 02-28-2025 End: 02-28-2025 ambulatory Katarina Stevens CONSTRUCTION OR [employer] LABORER-C Work Phone: [facility] Work Phone: Start: 02-28-2025 End: 02-28-2025 Patient encounter procedure Katarina Stevens CONSTRUCTION OR [employer] LABORER-C -Laboratory Specimen Work Phone: Start: 02-28-2025 End: 02-28-2025 ambulatory Katarina Stevens CONSTRUCTION OR LEAK GANG LABORER Facility:[facility] Start: 02-10-2025 End: 02-10-2025 Office outpatient visit 25 minutes Chantell Cruz MD Work Phone: [facility] Comment on above: Chronic bilateral lo w back pain without sciatica (Primary Dx); Lumbar facet arthropathy; Postlaminectomy syndrome, lumbar region Start: 02-10-2025 End: 02-10-2025 ambulatory CHANTELL [facility] Start: 02-03-2025 End: 02-03-2025 Subsequent hospital visit by physician Chantell Cruz MD Work Phone: [facility] Comment on above: Lumbar back pain Start: 02-03-2025 End: 02-03-[address] [facility] Start: 02-01-2025 End: 02-01-2025 ambulatory Polina Carpio BURGLAR ALARM INSPECTOR - FASHION CONSULTANT SELLING Work Phone: [facility] Start: 01-23-2025 End: 01-23-2025 Telephone encounter Chantell Cruz MD Work Phone: [facility] Comment on above: Other (Follow up pro cedure) Start: 01-20-2025 End: 01-20-2025 Subsequent hospital visit by physician Chantell Cruz MD Work Phone: [facility] Start: 01-20-2025 End: 01-20-2025 ambulatory KATARINA RODNEY [facility] Start: 01-20-2025 End: 01-20-2025 Subsequent hospital visit by physician [facility] Comment on above: Lumbar back pain Start: 01-17-2025 End: 01-17-2025 ambulatory Polina Carpio BURGLAR ALARM INSPECTOR - FASHION CONSULTANT SELLING Work Phone: [facility] Start: 01-04-2025 End: 01-04-2025 ambulatory Katarina Stevens CONSTRUCTION OR [employer] LABORER-C Work Phone: [facility] Work Phone: Start: 01-04-2025 End: 01-04-2025 Patient encounter procedure Katarinatim ArteagaStevens CONSTRUCTION OR [employer] G[employer] LABORER-C -Laboratory, Specimen Work Phone: Start: 01-04-2025 End: 01-04-2025 ambulatory Katarina Stevens CONSTRUCTION OR LE[employer] GANG LABORER Facility:[facility] Start: 12-30-2024 End: 12-30-2024 Office outpatient visit 25 minutes Chantell Cruz MD Work Phone: [facility] Comment on above: Lumbar facet arthrop athy (Primary Dx) Start: 12-30-2024 End: 12-30-2024 [facility] Start: 12-26-2024 End: 12-26-2024 ambulatory KATARINA STEVENS [facility] Start: 12-26-2024 End: 12-26-2024 Subsequent hospital visit by physician Prema Garcia MD Work Phone: [facility] Start: 12-08-2024 End: 12-08-2024 ambulatory Katarina Stevens CONSTRUCTION OR [employer] G[employer] LABORER-C Work Phone: [facility] Work Phone: Start: 12-08-2024 End: 12-08-2024 Patient encounter procedure Katarina Stevens CONSTRUCTION OR [employer] G[employer] LABORER-C -Laboratory, Specimen Work Phone: Start: 12-08-2024 End: 12-08-2024 ambulatory Katarina Stevens CONSTRUCTION OR LEAK GANG LABORER Facility:[facility] Start: 11-21-2024 End: 11-21-2024 Anesthesia consultation No Anesthesiologist - Sb/Helen SANTIAGO Work Phone: [facility] Start: 11-21-2024 End: 11-21-2024 ambulatory KATARINA ARTEAGASON [facility] Start: 11-21-2024 End: 11-21-2024 Subsequent hospital visit by physician Prema Garcia MD Work Phone: [facility] Start: 11-18-2024 End: 11-18-2024 Telephone encounter Prema Garcia MD Work Phone: [facility] Start: 11-14-2024 End: 11-14-2024 ambulatory KATARINA STEVENS [facility] Start: 09-29-2024 End: 09-29-2024 Patient encounter procedure Katarina Stevens CONSTRUCTION OR [employer] G[employer] LABORER-C -Laboratory, Specimen Work Phone: Start: 09-29-2024 End: 09-29-2024 ambulatory Katarina Stevens CONSTRUCTION OR LEAK GANG LABORER Facility:[facility] Start: 07-06-2024 End: 07-06-2024 Subsequent hospital visit by physician Katarina Stevens Work Phone: [facility] Comment on above: Encounter for screen ing mammogram for malignant neoplasm of breast Start: 06-29-2024 End: 06-29-2024 ambulatory Katarina Stevens CONSTRUCTION OR LEAK GANG LABORER Facility:[facility] Start: 06-27-2024 End: 09-26-2024 Transcribe Orders Katarina Stevens Work Phone: [facility] Central Scheduling Comment on above: Encounter for screen ing mammogram for malignant neoplasm of breast (Primary Dx) Start: 01-27-2024 End: 01-27-2024 ambulatory [facility] Work Phone: Start: 01-27-2024 End: 01-27-2024 Patient encounter procedure [facility]-Laboratory, Specimen Work Phone: Start: 10-23-2023 End: 10-23-2023 Office outpatient visit 25 minutes Chantell Cruz MD Work Phone: [facility] Comment on above: Spondylosis without myelopathy or radiculopathy, lumbar region (Primary Dx); Postlaminectomy syndrome, lumbar region Start: 10-05-2023 End: 10-05-2023 ambulatory [facility] Work Phone: Start: 10-05-2023 End: 10-05-2023 Patient encounter procedure [facility]-Laboratory, Specimen Work Phone: Start: 09-09-2023 Non-patient / Non-visit [facility] Work Phone: Start: 09-08-2023 End: 09-08-2023 ambulatory [facility] Work Phone: Start: 09-08-2023 End: 09-08-2023 Patient encounter procedure [facility]-Laboratory, Specimen Work Phone: Start: 08-11-2023 End: 08-11-2023 Subsequent hospital visit by physician Ba Hull MD Work Phone: [facility] Non-Invasive Cardiology Comment on above: Dizziness Start: 08-11-2023 End: 08-11-2023 Subsequent hospital visit by physician Ba Hull MD Work Phone: [facility] Non-Invasive Cardiology Comment on above: Shortness of breath; Precordial chest pain Start: 07-31-2023 End: 07-31-2023 Office outpatient new 45 minutes Ba Hull MD Work Phone: [facility] Cardiology Comment on above: Dizziness (Primary D x); Encounter to establish care with new doctor; Shortness of breath; Essential hypertension; Precordial chest pain Start: 06-15-2023 Telephone encounter Tram Sampson MD Work Phone: [facility] Comment on above: Results Start: 06-10-2023 End: 06-10-2023 Female genitalia finding Tram Sampson MD Work Phone: [facility] Work Phone: Start: 06-10-2023 End: 06-10-2023 Patient encounter procedure Tram Sampson MD [facility] Comment on above: Gynecologic exam nor mal (Primary Dx); Cervical cancer screening; Breast cancer screening by mammogram; Screening for osteoporosis; Menopause Start: 05-20-2023 End: 05-20-2023 ambulatory Toan Lara MD Work Phone: [facility] Laboratory Comment on above: Arrived Abnormal levels of o ther serum enzymes (Primary Dx) Start: 05-20-2023 End: 05-20-2023 Subsequent hospital visit by physician Toan Lara MD Work Phone: [facility] Comment on above: Abnormal liver funct ion tests; Abnormal levels of other serum enzymes Start: 05-18-2023 Transcribe Orders Toan Lara MD Work Phone: [facility] Scheduling Comment on above: Abnormal liver funct ion tests (Primary Dx); Abnormal levels of other serum enzymes Start: 04-16-2023 End: 04-16-2023 [facility] Work Phone: Start: 04-16-2023 End: 04-16-2023 Patient encounter procedure [facility]Laboratory, Specimen Work Phone: Start: 03-30-2023 End: 03-30-2023 ambulatory [facility] Work Phone: Start: 03-30-2023 End: 03-30-2023 Patient encounter procedure [facility]-Laboratory, Specimen Start: 02-26-2023 End: 02-26-2023 Patient encounter procedure [facility]-Laboratory, Specimen Start: 02-25-2023 End: 02-25-2023 ambulatory [facility] Work Phone: Start: 02-25-2023 End: 02-25-2023 Patient encounter procedure [facility]-Laboratory, Specimen Start: 02-02-2023 End: 02-02-2023 ambulatory [facility] Work Phone: Start: 02-02-2023 End: 02-02-2023 Patient encounter procedure [facility]-Laboratory, Specimen Start: 11-11-2022 End: 11-11-2022 Transcribe Orders Katarina Stevens Work Phone: [facility] Laboratory Comment on above: Other enthesopathies , not elsewhere classified (Primary Dx) Other enthesopathies , not elsewhere classified Start: 09-16-2022 End: 09-16-2022 ambulatory [facility] Work Phone: Start: 09-16-2022 End: 09-16-2022 Patient encounter procedure [facility]Laboratory, Specimen Start: 08-29-2022 Transcribe Orders Shai soler MD Work Phone: [facility] Laboratory Comment on above: Chronic kidney disea se, stage 3b (HCC) (Primary Dx) Start: 06-11-2022 End: 06-11-2022 ambulatory [facility] Work Phone: Start: 06-11-2022 End: 06-11-2022 Patient encounter procedure [facility]-Laboratory, Specimen Start: 04-16-2022 End: 04-16-2022 Patient encounter procedure [facility]Labor[facility], Specimen Start: 03-08-2022 End: 03-08-2022 Patient encounter procedure [facility]-Labor[facility], Specimen Start: 02-20-2022 End: 02-20-2022 Subsequent hospital visit by physician Percy Botello MD [facility] Laboratory Start: 02-25-2021 End: 02-25-2021 Subsequent hospital visit by physician Chantell Cruz MD Work Phone: [facility] General Surgery Comment on above: Arrived Start: 01-24-2021 End: 01-24-2021 Subsequent hospital visit by physician Percy Botello Work Phone: [facility] Laboratory Start: 01-16-2021 End: 01-16-2021 Subsequent hospital visit by physician Bridget Briones Work Phone: [facility] [address] Endoscopy Comment on above: Arrived Start: 09-10-2020 End: 09-10-2020 Subsequent hospital visit by physician Chantell Cruz Work Phone: [facility] General Surgery Comment on above: Lumbar radiculopathy Start: 08-23-2020 End: 08-23-2020 Subsequent hospital visit by physician Percy Botello Work Phone: [facility] Start: 06-08-2020 End: 06-08-2020 Subsequent hospital visit by physician Katarina Stevens Work Phone: [facility] Laura Mammo Comment on above: Arrived Start: 05-23-2020 End: 05-23-2020 Subsequent hospital visit by physician Katarina Stevens [facility] Comment on above: Arrived Start: 03-13-2020 End: 03-13-2020 Subsequent hospital visit by physician Katarina Stevens Work Phone: [facility] Comment on above: Arrived Start: 08-08-2019 End: 08-08-2019 Subsequent hospital visit by physician Shruthi Godinez Work Phone: [facility] [place] [facility] Comment on above: Arrived Start: 08-01-2019 End: 08-01-2019 Subsequent hospital visit by physician Shruthi Godinez Work Phone: [facility] Laboratory Start: 04-05-2019 Patient encounter procedure [facility] Start: 02-13-2018 End: 02-14-2018 Emergency department patient visit [facility] Start: 09-08-2017 Ambulatory [facility] Procedures Date Procedure Procedure Detail Performing Clinician Start: 07-28-2025 Follow-up visit Follow-up CHANTELL CRUZ Start: 06-23-2025 FL GUIDANCE OR USE O NLY - NON-RESULTABLE Chantell Cruz MD Work Phone: Start: 06-14-2025 Adult depression scr eening assessment Tram Sampson MD Work Phone: Start: 05-19-2025 FL GUIDANCE OR USE O NLY - NON-RESULTABLE Chantell Cruz MD Work Phone: Start: 05-16-2025 Urine culture Katarina Bryant arguello CONSTRUCTION OR [employer] Work Phone: Start: 04-28-2025 Crystal-Rodríguez virus c apsid IgG measurement Katarina Arteagason CONSTRUCTION OR [employer] Work Phone: Comment on above: Negative <18.0 Equiv ocal 18.0 - 21.9 Positive >21.9 Start: 04-28-2025 Crystal-Rodríguez virus serologic test Katarina Arteagason CONSTRUCTION OR [employer] Work Phone: Comment on above: EBV Interpretation C [employer]: [...] EBV never develop antibodies to EBNA.Performed at: [place] [id number] Director: Ilya Hein PhD, Phone: [phone] Start: 04-28-2025 Parathyroid hormone measurement Katarina Arteagason CONSTRUCTION OR [employer] Work Phone: Start: 04-05-2025 Parathyroid hormone measurement Katarina Arteagason CONSTRUCTION OR [employer] Work Phone: Start: 04-05-2025 Urnls dip stick/tabl et reagent auto microscopy Katarina Arteagason CONSTRUCTION OR [employer] Work Phone: Start: 04-05-2025 Vitamin D, 25-hydrox y measurement Katarinatim ArteagaStevens CONSTRUCTION OR [employer] Work Phone: Comment on above: Vitamin D StatusDefi ciency: <20 ng/mL (50nmol/L)Insufficiency: 20-30 ng/mL (50-75 nmol/L)Sufficiency: 30-100 ng/mL (75-250 nmol/L)Toxicity: >100 ng/mL (>250 nmol/L) Start: 02-28-2025 Urine culture Katarina duon CONSTRUCTION OR [employer] Work Phone: Start: 02-03-2025 FL GUIDANCE OR USE O NLY - NON-RESULTABLE Chantell Cruz MD Work Phone: Start: 01-20-2025 FL GUIDANCE OR USE O NLY - NON-RESULTABLE Chantell Cruz MD Work Phone: Start: 01-04-2025 Urine culture Katarinatim Hurtado ardson CONSTRUCTION OR [employer] Work Phone: Start: 12-08-2024 Urine culture Katarinatim Hurtado ardson CONSTRUCTION OR [employer] Work Phone: Start: 09-29-2024 Urine culture Katarina Bryant ardson CONSTRUCTION OR [employer] Work Phone: Start: 07-06-2024 Screening digital br [...] Us abdominal real ti me w/image limited Taon Lara MD Work Phone: Start: 04-16-2023 Urine culture Start: 08-29-2022 Renal function panel Na noé Garcia MD Work Phone: Start: 03-08-2022 Urine culture Start: 02-20-2022 Urnls dip stick/tabl et rgnt auto w/o microscopy Percy Botello MD Start: 02-20-2022 End: 02-20-2022 Basic metabolic panel calcium total Percy Botello MD Start: 01-24-2021 25 hydroxy includes fractions if performed Percy Ayan Work Phone: Start: 01-24-2021 Assay of parathormone A ellen Botello Work Phone: Start: 01-24-2021 Assay of phosphorus inorganic Percy Ayan Work Phone: Start: 01-24-2021 Basic metabolic pane l calcium total Percy Ayan Work Phone: Start: 01-23-2021 Creatinine clearance Ad alessandro Botello Work Phone: Start: 01-23-2021 Creatinine other source Percy Ayan Work Phone: Start: 01-23-2021 Protein total xcpt refractometry urine Percy Ayan Work Phone: Start: 01-23-2021 Urnls dip stick/tabl et rgnt auto w/o microscopy Percy Ayan Work Phone: Start: 01-16-2021 End: 01-16-2021 Colonoscopy [...] Screening for malign ant neoplasm of colon [facility] Start: 06-14-2026 Depression Screening Depression Scre [facility] Start: 06-23-2025 End: 06-23-2025 Admission to same day surgery center 06/23/2025 10:30 AM EDT - 06/23/2025 11:00 AM EDT Surgery [facility] [address] [place] [address] Chantell Cruz MD [address], [place] [phone] left lumbar l4-l5 medial branch block #2 [07565 (CPT )] [facility] Comment on above: left lumbar l4-l5 me dial branch block #2 [11005 (CPT )] Start: 06-23-2025 End: 06-23-2025 Njx dx/ther agt pvrt facet jt lmbr/sac [address] [facility] Start: 06-23-2025 Subsequent hospital visit by physician 06/23/2025 10:30 AM EDT Hospital Encounter [facility] [address] [place] [address] Chantell Cruz MD [address], [place] [phone] [facility] Start: 06-19-2025 COVID-19 Vaccine ( season) COVID-19 Vaccine ( season) [facility] Start: 06-19-2025 Influenza vaccination [facility] Start: 05-19-2025 End: 05-19-2025 Admission to same day surgery center 05/19/2025 10:15 AM EDT - 05/19/2025 10:45 AM EDT Surgery [facility] [address] [place] [phone] Chantell Cruz MD [address], [place] [phone] left lumbar l4-l5 medial branch block [18923 (CPT )] [facility] Comment on above: left lumbar l4-l5 me dial branch block [86376 (CPT )] Start: 05-19-2025 End: 05-19-2025 Njx dx/ther agt pvrt facet jt lmbr/sac 1 level INJECTION, DIAGNOSTIC OR THERAPEUTIC AGENT, FACET JOINT Spondylosis without myelopathy or radiculopathy, lumbar region 05/19/2025 10:15 AM EDT [facility] Start: 05-19-2025 Subsequent hospital visit by physician 05/19/2025 10:15 AM EDT Hospital Encounter [facility] [address] [place] [phone] Chantell Cruz MD [address], [place] [phone] [facility] Start: 04-14-2025 End: 04-14-2025 Patient encounter procedure 04/14/2025 11:15 AM EDT Office Visit [facility] [place] [address] [place], [place] [phone] Chantell Cruz MD [address], [place] [phone] [facility] [place] Start: 02-20-2025 Diabetes Screening Diabetes Screenin g [facility] Start: 02-03-2025 End: 02-03-2025 Admission to same day surgery center 02/03/2025 10:15 AM EDT - 02/03/2025 10:45 AM EDT Surgery [facility] [address] [place] [phone] Chantell Cruz MD [address], [place] [phone] bilateral lumbar l4-l5 medial branch block #2 [57574 (CPT )] [facility] Comment on above: bilateral lumbar l4- l5 medial branch block #2 [38720 (CPT )] Start: 02-03-2025 Subsequent hospital visit by physician 02/03/2025 10:15 AM EDT Hospital Encounter [facility] [address] [place] [address] Chantell Cruz MD [address], [place] [phone] [facility] Start: 02-03-2025 End: 02-03-2025 Njx dx/ther agt pvrt facet jt lmbr/sac [address] [facility] Start: 01-20-2025 End: 01-20-2025 Admission to same day surgery center 01/20/2025 1:30 PM EDT - 01/20/2025 2:00 PM EDT Surgery [facility] [address] [place] [address] Chantell Cruz MD [address], [place] [phone] bilateral lumbar l4-l5 medial branch block [31372 (CPT )] [facility] Comment on above: bilateral lumbar l4- l5 medial branch block [32885 (CPT )] Start: 01-20-2025 Subsequent hospital visit by physician 01/20/2025 1:30 PM EDT Hospital Encounter [facility] [address] [place] [address] Chantell Cruz MD [address], [place] [phone] [facility] Start: 01-20-2025 End: 01-20-2025 Njx dx/ther agt pvrt facet jt lmbr/sac 1 level [facility] Start: 12-30-2024 End: 12-30-2024 Patient encounter procedure 12/30/2024 3:45 PM EDT Office Visit [facility] [place] [address] [place] [address] Chantell Cruz MD [address] [place] [address] [facility] [place] Start: 12-26-2024 End: 12-26-2024 Xcapsl ctrc rmvl insj io lens prosth w/o ecp PHACOEMULSIFICATION, CATARACT, WITH INTRAOCULAR LENS INSERTION Nuclear sclerotic cataract of left eye 12/26/2024 8:50 AM EDT [facility] Start: 11-21-2024 End: 11-21-2024 Admission to same day surgery center 11/21/2024 8:00 AM EST - 11/21/2024 8:45 AM EST Surgery [facility] [address] [place] [phone] Prema Garcia MD [address] [address] PHACOEMULSIFICATION, CATARACT, WITH IOL INSERTION RIGHT EYE [57387 (CPT )] [facility] Comment on above: PHACOEMULSIFICATION, CATARACT, WITH IOL INSERTION RIGHT EYE [52381 (CPT )] Start: 11-21-2024 End: 11-21-2024 Anesthesia consultation 11/21/2024 8:00 AM EST Anesthesia Event [facility] [address] [place] [address] Izabella Foster, BURGLAR ALARM INSPECTOR - FEED PROJECT ENGINEER [address] [place] [address] Anthony Lopez PA-C [address] [place] [address] [facility] Start: 11-21-2024 Subsequent hospital visit by physician 11/21/2024 8:00 AM EST Hospital Encounter [facility] [address] [place] [address] Prema Garcia MD [address] [facility] [address] [place] [address] [facility] Start: 11-21-2024 End: 11-21-2024 Xcapsl ctrc rmvl insj io lens prosth w/o ecp [facility] Start: 10-19-2024 Advance Directive Discussion Advance Directive Discussion [facility] Start: 10-19-2024 Medicare Advantage A nnual Wellness Visit Medicare Advantage Annual Wellness Visit [facility] Start: 06-19-2024 COVID-19 Vaccine ( season) COVID-19 Vaccine () [facility] Start: 06-19-2024 COVID-19 Vaccine () COVID-19 Vaccine () [facility] Start: 06-19-2024 Influenza vaccination Influenza Vacc ine (#1) [facility] Start: 06-10-2024 BP CONTROLLED (<130/80) BP CONTROLLE D (<130/80) [facility] Start: 10-19-2023 Medicare Advantage A nnual Wellness Visit Medicare Advantage Annual Wellness Visit [facility] Start: 09-17-2023 End: 09-17-2023 Patient encounter procedure 09/17/2023 8:30 AM EST Office Visit [facility] [address] [facility] [address] [place] [address] Jayla Garcia, BURGLAR ALARM INSPECTOR - FASHION CONSULTANT SELLING [address] [place] [address] [facility] Start: 08-31-2023 End: 08-31-2023 Patient encounter procedure 08/31/2023 9:00 AM EST Office Visit [facility] [address] [place] [phone] Katlyn Sanderson PA-C [address] [place] [address] [facility] Start: 08-29-2023 Creatinine measurement Serum Creatin ine [facility] Start: 08-11-2023 End: 08-11-[address] [facility] Non-Invasive Cardiology Start: 07-31-2023 End: 07-31-2025 Cardiac holter monitor (8- 15 days) Cardiac holter monitor (8- 15 days) [facility] Routine Dizziness Expected: 07/31/2023, Expires: 07/31/[address] [facility] Work Phone: Comment on above: Expected: 07/31/2023 , Expires: 07/31/2025 Start: 06-19-2023 COVID-19 Vaccine ( season) COVID-19 Vaccine ( season) [facility] Start: 06-19-2023 Influenza vaccination [facility] Start: 01-17-2023 COVID-19 VACCINE (6 - Pfizer series) COVID-19 VACCINE (6 - Pfizer series) [facility] Start: 10-19-2022 ADVANCE DIRECTIVE DISCUSSION ADVANCE DIRECTIVE DISCUSSION [facility] Start: 06-19-2022 Influenza vaccination Flu vacc ine (Season Ended) [facility] Start: 06-08-2022 Screening for malign ant neoplasm of breast Breast cancer screen [place], [place] Start: 05-07-2022 COVID-19 Vaccine (4 - Booster for Pfizer series) COVID-19 Vaccine (4 - Booster for Pfizer series) [facility] Start: 05-07-2022 COVID-19 Vaccine (4 - Pfizer series) COVID-19 Vaccine (4 - Pfizer series) [facility] Start: 01-24-2022 Creatinine measurement [facility] Start: 01-24-2022 Potassium [Moles/vol ume] in Serum or Plasma Potassium [facility] Start: 01-24-2022 Potassium monitoring Potassium monit oring [facility] Work Phone: Start: 2021 RSV Immunization for Adults (1 - 1-dose 75+ series) RSV Immunization for Adults (1 - 1-dose 75+ series) [facility] Start: 2021 RSV Vaccine (1 - 1-d ose 75+ series) RSV Vaccine (1 - 1-dose 75+ series) [facility] Start: 06-19-2021 Influenza vaccination Flu vacc ine (Season Ended) [facility] Work Phone: Start: 04-05-2021 End: 04-05-2021 Patient encounter procedure 04/05/2021 Office Visit Pain Management Chantell Cruz MD [address], [place] [phone] Pain Medicine Start: 02-13-2021 DIABETES SCREEN DIABETES SCREEN [facility] Start: 01-24-2021 End: 01-24-2021 Office Visit 01/24/2021 Office Visit General Surgery Bridget Briones MD [address] [place] [address], [address] [place], [place] [phone] Bridget Briones MD Start: 10-09-2020 End: 10-09-2020 Office Visit 10/09/2020 Office Visit Pain Management Chantell Cruz MD [address], [place] [phone] Pain Medicine Start: 08-24-2020 End: 08-24-2020 Office Visit 08/24/2020 Office Visit Pain Management Chantell Cruz MD [address], [place] [phone] Pain Medicine Start: 08-01-2020 Creatinine measurement Creatinine mo nitoring [place], [place] Start: 08-01-2020 Creatinine monitoring Creatinine mon [place], [place] Start: 06-19-2020 Influenza vaccination [place], [place] Start: 08-08-2019 End: 08-08-2019 Appointment 08/08/2019 [facility]ment [facility]uthi Alexander [address] [facility] [place], [place] [phone] [facility] Start: 06-19-2019 Influenza vaccination Flu vaccine (# 1) [place], [place] Start: 04-10-2019 Annual Wellness Visi t (AWV) Annual Wellness Visit (AWV) [facility] Start: 02-15-2019 Creatinine monitoring Creatinine mon boom [place], [place] Start: 02-15-2019 Potassium monitoring Potassium monit ene [place] Start: 11-25-2017 End: 11-25-2017 Appointment Appointment [facility] Work Phone: Start: 11-13-2017 Pneumococcal 65+ yea rs Vaccine (2 - PPSV23 or PCV20) Pneumococcal 65+ years Vaccine (2 - PPSV23 or PCV20) [facility] Start: 11-13-2017 Pneumococcal Vaccine : 50+ Years (2 of 2 - PPSV23) Pneumococcal Vaccine: 50+ Years (2 of 2 - PPSV23) [facility] Start: 11-13-2017 Pneumococcal Vaccine : 65+ Years (2 - PPSV23 if available, else PCV20) Pneumococcal Vaccine: 65+ Years (2 - PPSV23 if available, else PCV20) [facility] Start: 11-13-2017 Pneumococcal Vaccine : 65+ Years (2 - PPSV23 or PCV20) Pneumococcal Vaccine: 65+ Years (2 - PPSV23 or PCV20) [facility] Start: 11-13-2017 Pneumococcal Vaccine : 65+ Years (2 of 2 - PPSV23 or PCV20) Pneumococcal Vaccine: 65+ Years (2 of 2 - PPSV23 or PCV20) [facility] Start: 11-13-2017 PNEUMOCOCCAL: 65+ (2 - PPSV23 or PCV20) PNEUMOCOCCAL: 65+ (2 - PPSV23 or PCV20) [facility] Start: 05-20-2017 End: 05-20-2017 Appointment Appointment [employer] [facility] [employer] Work Phone: Start: 05-20-2017 End: 05-20-2017 Echocardiography Echocardiogram (complete) [employer] Work Phone: Start: 05-20-2017 End: 05-20-2017 Follow Up Appt 6 months Follow Up Appt 6 months Yesenia [facility] [employer] [facility] Work Phone: Start: 05-20-2017 End: 05-20-2017 MMM MMM [facility] Work Phone: Start: 05-20-2017 End: 05-20-2017 Nuclear stress test -exercise Nuclear stress test -exercise [employer] Work Phone: Start: 2011 BONE DENSITY BONE DENSITY [facility] Start: 2011 Pneumococcal 65+ yea rs Vaccine (1 of 1 - PPSV23) Pneumococcal 65+ years Vaccine (1 of 1 - PPSV23) [place], [place] Start: 2011 Pneumococcal 65+ yea rs Vaccine (1 of 2 - PCV13) Pneumococcal 65+ years Vaccine (1 of 2 - PCV13) [place] Start: 06-19-2011 Medicare Annual Well ness Visit Medicare Annual Wellness Visit [facility] Start: 2006 RSV Immunization age d 60 or older (1 - 1-dose 60+ series) RSV Immunization aged 60 or older (1 - 1-dose 60+ series) [facility] Start: 1996 Breast cancer screen Breast cancer s creen [place], [place] Start: 1996 Colon cancer screen colonoscopy Colon cancer screen colonoscopy [place], [place] Start: 1996 Screening for malign ant neoplasm of breast Breast cancer screen [place], [place] Start: 1996 Screening for malign ant neoplasm of colon Colon cancer screen colonoscopy [place], [place] Start: 1996 Shingles Vaccine (1 of 2) Delarosa gles Vaccine (1 of 2) [facility] Start: 1996 SHINGRIX VACCINE (1 of 2) DELAROSA GRIX VACCINE (1 of 2) [facility] Start: 1996 Zoster Vaccines (1 of 2) Zoste r Vaccines (1 of 2) [facility] Start: 1991 Screening for malign ant neoplasm of colon [facility] Start: 1965 DTaP/Tdap/Td vaccine (1 - Tdap) DTaP/Tdap/Td vaccine (1 - Tdap) [facility] Start: 1965 DTaP/Tdap/Td Vaccine s (1 - Tdap) DTaP/Tdap/Td Vaccines (1 - Tdap) [facility] Start: 1965 Urine microalbumin profile [facility] Start: 1964 ANNUAL PCP TEAM CARRY OUT CLERK IFEOMA DISEASE VISIT ANNUAL PCP TEAM CHRONIC DISEASE VISIT [facility] Start: 1964 Anxiety Screening Anxiety Screening [facility] Start: 1964 Hepatitis C screening S [facility] Start: 1964 HEPATITIS C SCREENING HEPATITIS C SC KRISTI [facility] Start: 1962 COVID-19 Vaccine (1) COVID-19 Vaccin e (1) [facility] Work Phone: Start: 1958 Depression Screen Depression Screen [facility] Start: 1958 Depression Screening Depression Scre ening [facility] Start: 1956 Lipid panel [facility] Start: 1956 Lipid screen Lipid screen [place], [place] Start: 1946 Hepatitis B Vaccines (1 of 3 - 3-dose series) Hepatitis B Vaccines (1 of 3 - 3-dose series) [facility] Start: 1946 Hepatitis C screen Hepatitis C scree n [place], [place] Start: 1946 Hepatitis C screening Hepatitis C sc sheila [place], [place] Start: 1946 Lipid panel Lipid Panel [facility] Start: 1946 Medicare Advantage A nnual Wellness Visit (AWV) Medicare Advantage Annual Wellness Visit (AWV) [facility] Start: 1946 Screening for osteoporosis Bone Density Scan [facility] End: 08-11-2023 Cardiac holter monitor (8- 15 days) [facility] Work Phone: Comment on above: Once for 1 Occurrenc es starting 08/11/2023 until 08/11/2023 Creatinine Clearance , Urine, 24 HR Creatinine Clearance, Urine, 24 HR Lab Routine 01/23/2021 8:30 AM EDT [facility] Work Phone: DBT Breast - bilater al screening MARY ANN SCREENING [facility] Radiology Routine Breast cancer screening by mammogram 1 Occurrences starting 06/14/2025 [facility] Comment on above: 1 Occurrences starti ng 06/14/2025 End: 07-14-2026 DXA Skeletal system.axial Views for bone density DXA-AXIAL SKELETON Radiology Routine Menopause 1 Occurrences starting 06/14/2025 until 07/14/2026 [facility] Comment on above: 1 Occurrences starti ng 06/14/2025 until 07/14/2026 DXA-AXIAL SKELETON DXA-AXIAL SKE LETON Radiology Routine Screening for osteoporosis Menopause 1 Occurrences starting 06/10/2023 [employer] Phone: Comment on above: 1 Occurrences starti ng 06/10/2023 MARY ANN SCREENING W [facility] MARY ANN SCREENI NG [facility] Radiology Routine Gynecologic exam normal Breast cancer screening by mammogram 1 Occurrences starting 06/10/2023 [employer] Phone: Comment on above: 1 Occurrences starti ng 06/10/2023 Njx dx/ther agt pvrt facet jt lmbr/sac 1 level INJECTION, DIAGNOSTIC OR THERAPEUTIC AGENT, FACET JOINT Spondylosis without myelopathy or radiculopathy, lumbar region [employer] OUTSIDE PROCEDURE SCAN OUTSIDE P ROCEDURE SCAN Procedures Ordered: 11/11/2022 Alma Johns Comment on above: Ordered: 11/11/2022 OUTSIDE PROCEDURE SCAN OUTSIDE P ROCEDURE SCAN Procedures Ordered: 05/20/2023 Alma Johns Comment on above: Ordered: 05/20/2023 OUTSIDE PROCEDURE SCAN OUTSIDE P ROCEDURE SCAN Procedures Ordered: 05/19/2023 Alma Johns Comment on above: Ordered: 05/19/2023 Oxygen therapy [[facility] Data Set] Initiate Oxygen Therapy Protocol Respiratory Care Routine Daily until discontinued starting 01/16/2021 [employer] Phone: Comment on above: Daily until disconti nued starting 01/16/2021 PAP REFLEX HPV MRNA WHEN ASCUS PAP REFLEX HPV MRNA WHEN ASCUS Lab Routine Gynecologic exam normal Cervical cancer screening Ordered: 06/10/2023 [employer] Phone: Comment on above: Ordered: 06/10/2023 PAP REFLEX HPV MRNA WHEN ASCUS PAP REFLEX HPV MRNA WHEN ASCUS Lab Routine Gynecologic exam normal Ordered: 06/14/2025 [employer] Phone: Comment on above: Ordered: 06/14/2025 End: 01-24-2021 Protein, 24 Hr Urine Protein, 24 Hr Urine Lab Routine Once for 1 Occurrences starting 01/24/2021 until 01/24/2021 [employer] Work Phone: Comment on above: Once for 1 Occurrenc es starting 01/24/2021 until 01/24/2021 Protein, 24 Hr Urine Protein, 24 Hr Urine Lab Routine 01/23/2021 8:30 AM EDT [employer] Work Phone: End: 06-08-2020 Screening digital breast tomosynthesis bi [facility] Digital Screen Bilateral Imaging Routine Once for 1 Occurrences starting 06/08/2020 until 06/08/2020 [facility] on above: Once for 1 Occurrenc es starting 06/08/2020 until 06/08/2020 Screening digital br east tomosynthesis bi Mary Ann Noble Digital Screen Bilateral Imaging Routine 06/08/2020 10:52 AM EDT [facility] [place] Troponin I measurement [facility] Troponin T.cardiac [Mass/volume] in Serum or Plasma by High sensitivity method [facility] Urate [Mass/volume] in Serum or Plasma [facility] Vitamin B12 measurement [facility] End: 11-11-2022 XR Shoulder - left 2 Views [facility] [employer] Work Phone: Comment on above: Once for 1 Occurrenc es starting 11/11/2022 until 11/11/2022 [facility] Immunizations Immunization Date Immunization Notes Care Provider [facility] 09-18-2022 COVID-19 vaccine, ag e 12+ yr, bivalent (PFIZER-BIONTECH) Tram Sampson MD Work Phone: [facility] 08-23-2022 influenza (HD-IIV4) vaccine, age 65+ yr, high dose, quadrivalent, PF (FLUZONE HIGH-DOSE) Tram Sampson MD Work Phone: [facility] 08-23-2022 influenza virus vaccine, unspecified formulation [facility] Drawstation [facility] 03-12-2022 Covid-19, Pfizer Gra y Top, Do Not Dilute, (Age 12 Y+), Im, L Katarina Stevens Work Phone: [facility] 08-09-2021 Pfizer SARS-CoV-2 Vaccination Katarina Stevens Work Phone: [facility] [employer] 12-23-2020 Pfizer SARS-CoV-2 Vaccination Katarina tSevens Work Phone: [facility] [employer] 12-02-2020 Pfizer SARS-CoV-2 Vaccination Katarina Stevens Work Phone: [facility] 07-09-2020 Fluzone Quad 2020-20 21 (PF) (flu vacc [id number] 6mos up(PF)) 60 mcg (15 mcg x [facility] Work Phone: 08-16-2019 Seasonal trivalent influenza vaccine, adjuvanted, preservative free Tram Sampson MD Work Phone: [facility] 07-24-2017 influenza, high dose seasonal, preservative-free Tram Sampson MD Work Phone: [facility] 11-13-2016 pneumococcal conjuga te vaccine, 13 valent Tram Sampson MD Work Phone: [facility] 08-22-2016 influenza, high dose seasonal, preservative-free Tram Sampson MD Work Phone: [facility] 07-24-2015 influenza, high dose seasonal, preservative-free Tram Sampson MD Work Phone: [facility] 07-19-2013 influenza, seasonal, injectable Tram Sampson MD Work Phone: [facility] 10-08-2009 novel [id number], preservative-free, injectable Tram Sampson MD Work Phone: [facility] Payers Date Payer Category Payer Self-pay [id number] 2021 Medicare HMO UHC AARP MEDICAR E ADVANTAGE [id number] 2018 Medicare [facility] MEDICARE [facility] MEDICARE COMPLETE xxxxxxxxx 2018-Present xxxxxxxxx [id number] 2018 Medicare [id number] 2011 Private Health Insurance [id number] 2011 Medicare [id number] Medicare [id number] Unknown [id number] Unknown AARP MCR ADV [id number] Unknown [id number] Unknown [id number] Unknown [id number] Unknown [id number] Unknown [id number] Unknown [id number] Unknown [id number] Unknown [id number] Social History Date Type Detail Facility Start: 05-02-2019 End: 07-06-2024 Tobacco smoking status NHIS Never smoker [place] Start: 05-02-2019 End: 11-14-2024 Alcohol intake No [facility] Start: 1945 Sex Assigned At Not on file M [place], [place] Start: 05-02-2019 End: 07-28-2025 Alcohol intake Current non-drinker of alcohol (finding) [place], [place] Start: 05-02-2019 End: 07-06-2024 Tobacco use and exposure Never used [place] Start: 11-01-2022 End: 05-19-2023 Exposure to SARS-CoV-2 (event) Not sure [place], [place] Start: 1945 Sex Assigned At Female [facility] Start: 06-10-2023 End: 06-14-2025 Alcohol intake Current drinker of alcohol (finding) [facility] Start: 06-10-2023 End: 11-14-2024 History of Social function [facility] Start: 09-19-2012 Adult Depression Screening Assessment 0 [facility] Start: 06-10-2023 [facility] Start: 05-19-2022 End: 01-13-2025 Sex Female (finding) [facility] Tobacco smoking stat us NCIS Unknown if ever smoked [facility] Work Phone: NEGATED: Highlighted rowStart: NINF History of tobacco use Passive smoker [facility] Medical Equipment Procedure Code Equipment Code Equipment Origin al Text Equipment Identifier Dates Lens Iol Posteri or Akreos [facility] - [id number] - [id number] Start: 11-21-2024 Lens Iol Posteri or Akreos [facility] - [id number] - [id number] Start: 12-26-2024 Goals Date Patient Goal Desired Activity /State Personal health goal Personal health goal Functional Status Date Assessment Result Facility 05-14-2014 Are you deaf, or do you have serious difficulty hearing No 05/14/2014 9:55 AM Maikol PortilloRn)(Hist), RN No [facility] 05-14-2014 Are you blind, or do you have serious difficulty seeing, even when wearing glasses No 05/14/2014 9:55 AM EDMaikol PruittRn)(Hist), RN No [facility] 05-14-2014 Do you have serious difficulty walking or climbing stairs No 05/14/2014 9:55 AM EDMaikol PruittRn)(Hist), RN No [facility] 05-14-2014 Do you have difficul ty dressing or bathing No 05/14/2014 9:55 AM Maikol Portillo (Rn)(Hist), RN No [facility] 05-14-2014 Because of a physica l, mental, or emotional condition, do you have difficulty doing errands alone such as visiting a physician's office or shopping No 05/14/2014 9:55 AM Maikol PortilloRn)(Hist), RN No [facility] Mental Status Date Assessment Result Facility 05-14-2014 Because of a physica l, mental, or emotional condition, do you have serious difficulty concentrating, remembering, or making decisions No 05/14/2014 9:55 AM Maikol PortilloRn)(Hist), RN No [facility] Clinical Notes 02-25-2021 to 07-28-2025 Chantell Cruz MD - 07/28/2025 11:45 AM James Rousseau RN - 06/23/2025 11:28 AM James Rousseau RN - 06/23/2025 11:28 AM EDTDischarge InstructionsDischarge Instructions Note Date & Type Note Facility 07-28-2025 History of Present illness Narrative Images from the original note were not included. [facility] [address] [facility] [address] Dept: [phone] Dept Chief Complaint Patient presents with Follow-up Pt is here for a follow up from the Left Lumbar RFA which was done on 06/23/2025, pt states she has 95% relief from that pain. She has noticed pain higher in her back since the procedure. This pain becomes severe when she is standing/movement for 30-40mins. SUBJECTIVE HPI: Milena Mcghee is a 80 y.o. year old here today for follow-up of chronic low back pain. Since last visit, she has received about 95% ongoing relief of her pain after her recent LEFT L4 and L5 RFA on 06/23/25. She is having some pain a bit more laterally now in her left low back. LOCATION OF PAIN: Left low back, more toward the flank around QL muscle RADIATES: denies into the legs CONSTANT/INTERMITTENT: Constant NUMBNESS/TINGLING? denies WEAKNESS? denies URINARY/FECAL INCONTINENCE? No SADDLE ANESTHESIA? no INTERFERING WITH SLEEP? No CURRENT PAIN MEDS: Tylenol 1000 mg PRN (usually once or twice a day), baclofen 10 mg up to BID PRN ANY SIGNIFICANT SIDE EFFECTS FROM CURRENT PAIN MEDS? no ARE THEY PROVIDING ADEQUATE ANALGESIA? some ARE THEY PROVIDING ADEQUATE FUNCTIONAL IMPROVEMENT? some PAIN MEDS PREVIOUSLY TRIED/FAILED: Meloxicam (had helped but had to stop due to kidney function concerns), duloxetine (side effects), lidocaine patches, gabapentin OTHER CURRENT / PREVIOUS TREATMENT Physical therapy -- Last did shortly after her most recent back surgery in 2018 TENS -- No Chiropractor -- No Acupuncture -- No Prior Pain Clinic -- Dr Morrison in [place] Chronic opiates -- No Previous Pain Procedures [...] Active Problem List Diagnosis Date Noted Sacroiliitis 02/25/2021 Epigastric pain 01/16/2021 BRBPR (bright red [...] BY MOUTH AT BEDTIME for chronic pain baclofen (Lioresal) 10 MG tablet Take 1 tablet (10 mg) by mouth 2 times daily as needed for muscle spasms. 180 tablet 0 No current facility-administered medications for this visit. Review of Systems OBJECTIVE Vitals: 07/28/25 1148 BP: 132/76 BP Location: Right arm Patient Position: Sitting BP Cuff Size: Large adult long Pulse: 83 Weight: 172 lb (78 kg) Height: 5' 4 (1.626 m) Physical Exam Constitutional: General: She is [...] Lumbar w/o pain W/o pain + pain (over attachment of QL at iliac crest, not over the facets) Range of motion: Lateral Bend Lumbar Full with pain on the left with right bending IMAGING / OTHER STUDIES: 08/08/19 MRI Lumbar [...] the left lateral foramen. LABS: ASSESSMENT 1. Chronic left-sided low back pain without sciatica 2. Postlaminectomy syndrome, lumbar region 3. Lumbar facet arthropathy 1) Chronic low back pain (>1 year duration) -- in the setting of previous lumbar (L3-4) fusion. Her pain is primarily axial, and is still most consistent with left lower lumbar facet arthropathy + myofascial pain (lately more in left QL muscle)... Not currently adequately controlled, due to lingering myofascial pain in QL, but with good relief though from recent LEFT L4 and L5 RFA PLAN - Will continue baclofen 10 mg up to twice daily as needed - Continue Tylenol up to 3000 mg total per day PRN - Encouraged continuing to work on core back strengthening / extension exercises on a routine basis as tolerated, and demonstrated some QL stretches to start working on as well No follow-ups on file. documented in this encounter [facility] 06-23-2025 Nurse Note Denies needs, denies pain or headache. Denies neuro deficits. Band Aid dry intact. Will DC home . Instructions completed [facility] 06-23-2025 Nurse Note Denies needs, denies pain or headache. Denies neuro deficits. Band Aid dry intact. Will DC home . Instructions completed documented in this encounter [facility] 06-23-2025 Hospital Discharge instructions Chantell Cruz MD - 06/23/2025 11:21 AM EDT - Resume normal activity as tolerated - Resume normal diet as tolerated - If injection site is sore, can ice for pain relief - No tubs, baths, pools for 24 hours (showers are okay). - No driving or operating machinery today if you received sedation for your procedure - If you take a blood thinner, resume taking this per Dr Cruz's instructions (usually resume 24 hrs after your procedure) - Call Dr Cruz's office ([phone]) (or go to ER after hours or [...] not already have one documented in this encounter [facility] 06-23-2025 Procedure note OPERATIVE NOTE DATE: 06/23/25 LOCATION: [facility] PROCEDURE: Radiofrequency Ablation of the LEFT L4 and L5 Medial Branch Nerves under Fluoroscopic Guidance PERFORMED BY: Chantell Cruz MD PRE-OPERATIVE DIAGNOSIS: Lumbar Spondylosis without Radiculopathy or Myelopathy POST-OPERATIVE DIAGNOSIS: Same ANESTHESIA: Local DESCRIPTION: History and physical examination were performed and informed consent obtained. A time out with 2 active identifiers of the patient, the procedure, and the site was performed. The patient was positioned prone on the fluoroscopy table. A sterile prep with Chloraprep and drape of the area was performed and approximately 6 cc total of 1% lidocaine was used to provide local anesthesia. Fluoroscopy was used to identify the LEFT facet joint between L5-S1. A 20 g, 10 cm RF cannula was then placed under fluoroscopic guidance in the oblique view, and directed to the junction of the superior articular process with the transverse process at each level (L5 and sacral ala, for the corresponding L4 and L5 medial branch nerves, respectively). After os was contacted at each junction, aspiration of needle was negative. Next, the RF probe was inserted into the cannula. Motor stimulation to 2V was then tested at each location and showed appropriate sensory response in the back, but no lower extremity sensation or twitching with motor testing. Then after negative aspiration, one cc of 2% Lidocaine was then used to anesthetize the medial branch nerves of the facets immediately prior to the radiofrequency ablation. A thermal radiofrequency ablation was then applied to each nerve for 120 seconds at 80 degrees Celsius. The patient reported no paresthesia, and there was no active bleeding at the needle insertion sites. The patient was placed in the supine position and observed for approximately 20 minutes prior to discharge home in stable condition with a responsible adult. There were no adverse reactions noted. Radiological Findings/Interpretation: The RF needle was seen at the appropriate site adjacent to each facet joint on AP, oblique, and lateral views. [facility] 06-23-2025 Miscellaneous Notes OPERATIVE NOTE DATE: 06/23/25 LOCATION: [facility] PROCEDURE: Radiofrequency Ablation of the LEFT L4 and L5 Medial Branch Nerves under Fluoroscopic Guidance PERFORMED BY: Chantell Cruz MD PRE-OPERATIVE DIAGNOSIS: Lumbar Spondylosis without Radiculopathy or Myelopathy POST-OPERATIVE DIAGNOSIS: Same ANESTHESIA: Local DESCRIPTION: History and physical examination were performed and informed consent obtained. A time out with 2 active identifiers of the patient, the procedure, and the site was performed. The patient was positioned prone on the fluoroscopy table. A sterile prep with Chloraprep and drape of the area was performed and approximately 6 cc total of 1% lidocaine was used to provide local anesthesia. Fluoroscopy was used to identify the LEFT facet joint between L5-S1. A 20 g, 10 cm RF cannula was then placed under fluoroscopic guidance in the oblique view, and directed to the junction of the superior articular process with the transverse process at each level (L5 and sacral ala, for the corresponding L4 and L5 medial branch nerves, respectively). After os was contacted at each junction, aspiration of needle was negative. Next, the RF probe was inserted into the cannula. Motor stimulation to 2V was then tested at each location and showed appropriate sensory response in the back, but no lower extremity sensation or twitching with motor testing. Then after negative aspiration, one cc of 2% Lidocaine was then used to anesthetize the medial branch nerves of the facets immediately prior to the radiofrequency ablation. A thermal radiofrequency ablation was then applied to each nerve for 120 seconds at 80 degrees Celsius. The patient reported no paresthesia, and there was no active bleeding at the needle insertion sites. The patient was placed in the supine position and observed for approximately 20 minutes prior to discharge home in stable condition with a responsible adult. There were no adverse reactions noted. Radiological Findings/Interpretation: The RF needle was seen at the appropriate site adjacent to each facet joint on AP, oblique, and lateral views. documented in this encounter [facility] 06-23-2025 History and physical note Images from the original note were not included. [facility] [address] [facility] [address] Dept: [phone] SUBJECTIVE HPI: Milena Mcghee is a 79 y.o. year old here today for LEFT L4 and L5 RFA today. Patient Active Problem List Diagnosis Date [...] Current Outpatient Medications Medication Sig Dispense Refill amLODIPine (Norvasc) 5 MG tablet Take 1 tablet by mouth every morning (before breakfast). atorvastatin (Lipitor) 10 MG tablet Take 1 tablet by mouth every morning (before breakfast). cholecalciferol (Vitamin D-3) 50 MCG (2000 UT) tablet Take by mouth daily. lisinopril 20 MG tablet Take 1 [...] BY MOUTH AT BEDTIME for chronic pain acetaminophen (Tylenol) 500 MG tablet every 8 hours as needed. gabapentin (Neurontin) 300 MG capsule Take 600 mg by mouth every morning (before breakfast). (Patient not taking: Reported on 06/23/2025) Current Facility-Administered Medications Medication Dose Route Frequency Provider Last Rate Last Admin sodium chloride 0.9% (NS) flush 10 mL 10 mL IntraVENous 2 times per day Polina Carpio APRN - [place] sodium chloride 0.9% (NS) flush 10 mL 10 mL IntraVENous PRN Polina Carpio APRN - [place] Review of Systems Constitutional: Negative for fever. OBJECTIVE Vitals: 06/23/25 0948 BP: (!) 146/86 Pulse: 83 Resp: 16 Temp: 36.5 C (97.7 F) TempSrc: Tympanic SpO2: 95% Physical Exam Constitutional: General: She is not [...] controlled, but with good temporary relief from previous bilateral L4 and L5 MBB #1, and subsequent LEFT L4 and L5 MBB (pain still just left sided) PLAN - Will proceed with LEFT L4 and L5 RFA today, after thoroughly discussing the procedure itself, as well as its associated risks (including but not limited to bleeding/epidural hematoma, infection/epidural abscess, spinal cord/nerve root injury, inadvertent intrathecal/epidural injection, weakness, and increased pain), potential benefits, and alternatives. No follow-ups on file. [employer] Phone: 06-23-2025 History and physical note Images from the original note were not included. [facility] [address] [facility] [address] Dept: [phone] SUBJECTIVE HPI: Milena Mcghee is a 79 y.o. year old here today for LEFT L4 and L5 RFA today. Patient Active Problem List Diagnosis Date [...] Current Outpatient Medications Medication Sig Dispense Refill amLODIPine (Norvasc) 5 MG tablet Take 1 tablet by mouth every morning (before breakfast). atorvastatin (Lipitor) 10 MG tablet Take 1 tablet by mouth every morning (before breakfast). cholecalciferol (Vitamin D-3) 50 MCG (2000 UT) tablet Take by mouth daily. lisinopril 20 MG tablet Take 1 [...] BY MOUTH AT BEDTIME for chronic pain acetaminophen (Tylenol) 500 MG tablet every 8 hours as needed. gabapentin (Neurontin) 300 MG capsule Take 600 mg by mouth every morning (before breakfast). 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 OBJECTIVE Vitals: 06/23/25 0948 BP: (!) 146/86 Pulse: 83 Resp: 16 Temp: 36.5 C (97.7 F) TempSrc: Tympanic SpO2: 95% Physical Exam Constitutional: General: She is not [...] controlled, but with good temporary relief from previous bilateral L4 and L5 MBB #1, and subsequent LEFT L4 and L5 MBB (pain still just left sided) PLAN - Will proceed with LEFT L4 and L5 RFA today, after thoroughly discussing the procedure itself, as well as its associated risks (including but not limited to bleeding/epidural hematoma, infection/epidural abscess, spinal cord/nerve root injury, inadvertent intrathecal/epidural injection, weakness, and increased pain), potential benefits, and alternatives. No follow-ups on file. documented in this encounter [facility] 06-23-2025 Note [facility] [address] [facility] [address] Dept: [phone] SUBJECTIVE HPI: Milena Mcghee is a 79 y.o. year old here today for LEFT L4 and L5 RFA today. Patient Active Problem List Diagnosis Date [...] Current Outpatient Medications Medication Sig Dispense Refill amLODIPine (Norvasc) 5 MG tablet Take 1 tablet by mouth every morning (before breakfast). atorvastatin (Lipitor) 10 MG tablet Take 1 tablet by mouth every morning (before breakfast). cholecalciferol (Vitamin D-3) 50 MCG (1999 UT) tablet Take by mouth daily. lisinopril 20 MG tablet Take 1 [...] BY MOUTH AT BEDTIME for chronic pain acetaminophen (Tylenol) 500 MG tablet every 8 hours as needed. gabapentin (Neurontin) 300 MG capsule Take 600 mg by mouth every morning (before breakfast). (Patient not taking: Reported on 06/23/2025) Current Facility-Administered Medications Medication Dose Route Frequency Provider Last Rate Last Admin sodium chloride 0.9% (NS) flush 10 mL 10 mL IntraVENous 2 times per day Polina Carpio APRN - [place] sodium chloride 0.9% (NS) flush 10 mL 10 mL IntraVENous PRN Polina Carpio APRN - [place] Review of Systems Constitutional: Negative for fever. OBJECTIVE Vitals: 06/23/25 0948 BP: (!) 146/86 Pulse: 83 Resp: 16 Temp: 36.5 ?C (97.7 ?F) TempSrc: Tympanic SpO2: 95% Physical Exam Constitutional: General: She is not [...] Mood and affect normal. Speech: Speech normal. -- (more content not included)... [facility] 06-21-2025 Telephone encounter Note Pt is informed with her results. Rupinder Arroyo MA [facility] 06-21-2025 Miscellaneous Notes Pt is informed with her results. Rupinder Arroyo MA ----- Message from Tram Sampson MD sent at 06/20/2025 1:00 PM EDT ----- Please call patient. Your pap is normal. Tram Sampson MD ----- Message ----- From: Edmond Diaz In [employer]) Sent: 06/20/2025 11:52 AM EDT To: Tram Sampson MD documented in this encounter [facility] 06-21-2025 Telephone encounter Note ----- Message from Tram Sampson MD sent at 06/20/2025 1:00 PM EDT ----- Please call patient. Your pap is normal. Tram Sampson MD ----- Message ----- From: Edmond Diaz [employer]) Sent: 06/20/2025 11:52 AM EDT To: Tram Sampson MD [facility] 06-14-2025 History of Present illness Narrative SUBJECTIVE Milena L Antal is a 79 year old woman who presents for her annual exam. Last pap- 06/10/23. Last mammo- 07/06/24. Last dexascan-01/06/18. No LMP recorded (lmp unknown). Patient is postmenopausal. Denies vaginal itching, burning, discharge. Completed depression screening. Occasional soft stools. Occ stomach pain. UTI's q 2-3 months. She is having back issues and hoping to get an ablation. She is in PT for core; kegels and timed voids discussed. HISTORIES FAMILY HISTORY Adopted: Yes Problem Relation [...] EGD W/O BRSH SPEC VARICIES INJ 01/06/2021 SOCIAL HISTORY[1] ACTIVE PROBLEM LIST Chest Pain Epigastric Pain Essential (Primary) Hypertension Malaise and Fatigue Hyperlipidemia Pain in Unspecified Hip Shoulder Pain Acute Maxillary Sinusitis Arthralgia of Elbow Bilateral Epiphora Brbpr (Bright Red Blood Per Rectum) Candidiasis of Mouth and Esophagus (Hcc) Closed Nondisplaced Fracture of Base of Fourth Metacarpal Bone of Left Hand Constipation Cough Bronchitis Diarrhea Displaced Fracture of Base of Fifth Metacarpal Bone of Left Hand Diverticulitis Dizziness Dysuria Encounter for Immunization Eye Infection Gastroesophageal Reflux Disease Headache Disorder Low Back Pain Lumbar Radiculopathy Nausea & Vomiting Numbness of Lower Extremity Osteoarthritis Otitis Media Rectal Hemorrhage Sacroiliitis Sebaceous Cyst Shortness of Breath Stage 3 Chronic Kidney Disease (Hcc) Biceps Tendinitis Vitamin D Deficiency ALLERGIES Allergen Reactions Codeine GI Upset, Unknown Prednisone Unknown Seasonal Allergies Vomiting, Rash Sulfa (Sulfonamide * Swelling Nitrofurantoin Hives Promethazine Unknown Sulfasalazine Rash Current Outpatient Medications Medication Sig lisinopril (ZESTRIL) 20 mg tablet Take 1 tablet by mouth. dicyclomine (BENTYL) 10 mg capsule Take 1 tablet by mouth twice daily. omeprazole (PRILOSEC) 20 mg capsule Cholecalciferol, Vitamin [...] No history of dysuria, frequency or incontinence WORKING MANAGER: Negative for abnormal vaginal bleeding, abnormal vaginal discharge or Breast symptoms ENDOCRINE: Negative for cold or heat intolerance, polyuria, polydipsia and goiter NEURO: No history of headaches, syncope, paralysis, seizures or tremors OBJECTIVE BP 146/82 Ht 5' 5 (1.65m) Wt 176 lb (79.8kg) BMI 29.29 kg/(m^2). HEENT: Within normal limits NECK: Supple, no thyromegaly BREASTS: No masses, no nipple discharge HEART: Regular rate and rhythm without murmur, rub, or gallop LUNGS: Clear bilaterally to auscultation ABDOMEN: No masses, non tender, no hernias, no hepatosplenomegaly PELVIC: EGBUS: No lesions, normal appearance VAGINA: atrophic, No discharge, no blood, no lesions; fair kegel tone; benefits of estrace cream discussed CERVIX: No lesions, non tender UTERUS: Anteverted, normal size, non tender ADNEXA: Non tender, no masses RECTOVAGINAL: Not examined EXTREMITIES: No edema, no calf tenderness NEUROLOGICAL: Grossly intact ASSESSMENT/PLAN: 1. Gynecologic exam normal - ICD9: V72.31, ICD10: Z01.419 (primary diagnosis) - Completed pelvic and breast exam - Encouraged monthly BSE - Follow up for annual exam in one year. - PAP REFLEX HPV MRNA WHEN ASCUS 2. Screening for depression - ICD9: V79.0, ICD10: Z13.31 - DEPRESSION SCREENING 3. Cervical cancer screening - ICD9: V76.2, ICD10: Z12.4 4. Breast cancer screening by mammogram - ICD9: V76.12, ICD10: Z12.31 - MARY ANN SCREENING W NOBLE 5. Screening for osteoporosis - ICD9: V82.81, ICD10: Z13.820 6. Menopause - ICD9: 627.2, ICD10: Z78.0 - DXA-AXIAL SKELETON 7. Vaginal atrophy - ICD9: 627.3, ICD10: N95.2 - ESTRADIOL 0.01% (0.1 MG/GRAM) VAGINAL CREAM MD Rupinder Harry MA No follow-ups on file. [1] Social History Tobacco Use Smoking status: Never Smokeless tobacco: Never Vaping Use Vaping status: Never Used Substance Use Topics Alcohol use: Yes Comment: rarely Drug use: Never documented in this encounter [facility] 05-24-2025 Telephone encounter Note Called patient and she reports she had 90% relief for >6 hours s/p left L4 and L5 MBB #1. Will proceed with left L4 and L5 MBB #[address] Cruz. [employer] Phone: 05-24-2025 Miscellaneous Notes Called patient and she reports she had 90% relief for >6 hours s/p left L4 and L5 MBB #1. Will proceed with left L4 and L5 MBB #[address] Cruz. Message released to patient as written. Patient's further questions if applicable: 8-9 after the procedure it was 0-1 9% Lasted until the night and when pain came back it was worst Were all questions from office addressed or relayed to the patient from encounter: Yes Called patient to obtain relief information from procedure done on 05/19/2025 which was the Left L4-5 lumbar MBB. Upon returned call please obtain: (On the pain scale of 0 being no pain and 10 being the worst pain) Using the pain scale above what was the pain prior to the injection and what was the pain following the injection? 2.The percentage of relief from the lumbar MBB? 3. How long did the relief last? documented in this encounter [facility] 05-24-2025 Telephone encounter Note Message released to patient as written. Patient's further questions if applicable: 8-9 after the procedure it was 0-1 9% Lasted until the night and when pain came back it was worst Were all questions from office addressed or relayed to the patient from encounter: Yes [facility] 05-22-2025 Note Called patient to ob tain relief information from procedure done on 05/19/2025 which was the Left L4-5 lumbar MBB. Upon returned call please obtain: (On the pain scale of 0 being no pain and 10 being the worst pain) Using the pain scale above what was the pain prior to the injection and what was the pain following the injection? 2.The percentage of relief from the lumbar MBB? 3. How long did the relief last? [facility] 05-22-2025 Telephone encounter Note Called patient to obtain relief information from procedure done on 05/19/2025 which was the Left L4-5 lumbar MBB. Upon returned call please obtain: (On the pain scale of 0 being no pain and 10 being the worst pain) Using the pain scale above what was the pain prior to the injection and what was the pain following the injection? 2.The percentage of relief from the lumbar MBB? 3. How long did the relief last? [facility] 05-19-2025 Hospital Discharge instructions Chantell Cruz MD - 05/19/2025 10:50 AM EDT - Resume normal activity as [...] week to follow-up documented in this encounter [facility] 05-19-2025 Procedure note OPERATIVE NOTE DATE: 05/19/25 LOCATION: [facility] PROCEDURE: LEFT L4 and L5 Medial Branch Nerve Blocks [...] of the area was performed and approximately 5 cc total of 1% lidocaine was used to provide local anesthesia. Fluoroscopy was used to identify the LEFT facet joints between L5-S1. A 25-gauge, 3.5 inch spinal needle was placed under fluoroscopic guidance in the oblique and lateral views, and directed to the junction of the superior articular process with the transverse process at each level (L5 and sacral ala, for the corresponding L4 and L5 medial branch nerves, respectively). After os was contacted at each junction, and aspiration was negative, approximately 0.5 cc of 2% lidocaine was injected at each junction. No paresthesias were elicited. No blood or spinal fluid was aspirated prior to injection. The patient tolerated the procedure well. No complications were noted, and the patient was discharged home in stable condition. [facility] 05-19-2025 Miscellaneous Notes OPERATIVE NOTE DATE: 05/19/25 LOCATION: [facility] PROCEDURE: LEFT L4 and L5 Medial Branch Nerve Blocks [...] of the area was performed and approximately 5 cc total of 1% lidocaine was used to provide local anesthesia. Fluoroscopy was used to identify the LEFT facet joints between L5-S1. A 25-gauge, 3.5 inch spinal needle was placed under fluoroscopic guidance in the oblique and lateral views, and directed to the junction of the superior articular process with the transverse process at each level (L5 and sacral ala, for the corresponding L4 and L5 medial branch nerves, respectively). After os was contacted at each junction, and aspiration was negative, approximately 0.5 cc of 2% lidocaine was injected at each junction. No paresthesias were elicited. No blood or spinal fluid was aspirated prior to injection. The patient tolerated the procedure well. No complications were noted, and the patient was discharged home in stable condition. documented in this encounter [facility] 05-19-2025 History and physical note Images from the original note were not included. [facility] [address] [facility] [address] Dept: [phone] SUBJECTIVE HPI: Milena Mcghee is a 79 y.o. year old here today for LEFT L4 and L5 MBB #2 today. Patient [...] Current Outpatient Medications Medication Sig Dispense Refill amLODIPine (Norvasc) 5 MG tablet Take 1 tablet by mouth every morning (before breakfast). atorvastatin (Lipitor) 10 MG tablet Take 1 tablet by mouth every morning (before breakfast). gabapentin (Neurontin) 300 MG capsule Take 600 mg by mouth every morning (before breakfast). lisinopril 20 MG tablet Take 1 tablet by mouth every morning (before breakfast). acetaminophen (Tylenol) 500 MG tablet every 8 hours as needed. cholecalciferol (Vitamin D-3) 50 MCG (2000 UT) tablet Take by mouth daily. Multiple Vitamin (Multi Vitamin) [...] Systems Constitutional: Negative for fever. OBJECTIVE Vitals: 05/19/25 0946 BP: 127/69 Pulse: 70 Resp: 16 Temp: (!) 35.8 C (96.5 F) TempSrc: Temporal SpO2: 96% Physical Exam Constitutional: General: She is not [...] controlled, but with good temporary relief from previous bilateral L4 and L5 MBB #1, but pain mainly just on left side lately PLAN - Will proceed with LEFT L4 and L5 MBB #2 today, after thoroughly discussing the procedure itself (as well as its diagnostic nature as part of a 3-step process toward eventual RFA), as well as its associated risks (including but not limited to bleeding/epidural hematoma, infection/epidural abscess, spinal cord/nerve root injury, inadvertent intrathecal/epidural injection, weakness, and increased pain), potential benefits, and alternatives. No follow-ups on file. [employer] Phone: 05-19-2025 History and physical note Images from the original note were not included. [facility] [address] [facility] [address] Dept: [phone] SUBJECTIVE HPI: Milena Mcghee is a 79 y.o. year old here today for LEFT L4 and L5 MBB #2 today. Patient [...] Current Outpatient Medications Medication Sig Dispense Refill amLODIPine (Norvasc) 5 MG tablet Take 1 tablet by mouth every morning (before breakfast). atorvastatin (Lipitor) 10 MG tablet Take 1 tablet by mouth every morning (before breakfast). gabapentin (Neurontin) 300 MG capsule Take 600 mg by mouth every morning (before breakfast). lisinopril 20 MG tablet Take 1 tablet by mouth every morning (before breakfast). acetaminophen (Tylenol) 500 MG tablet every 8 hours as needed. cholecalciferol (Vitamin D-3) 50 MCG (2000 UT) tablet Take by mouth daily. Multiple Vitamin (Multi Vitamin) [...] IntraVENous 2 times per day Polina Carpio BURGLAR ALARM INSPECTOR - [place] sodium chloride 0.9% (NS) flush 10 mL 10 mL IntraVENous PRN Polina Carpio APRN - [place] Review of Systems Constitutional: Negative for fever. OBJECTIVE Vitals: 05/19/25 0946 BP: 127/69 Pulse: 70 Resp: 16 Temp: (!) 35.8 C (96.5 F) TempSrc: Temporal SpO2: 96% Physical Exam Constitutional: General: She is not [...] controlled, but with good temporary relief from previous bilateral L4 and L5 MBB #1, but pain mainly just on left side lately PLAN - Will proceed with LEFT L4 and L5 MBB #2 today, after [...] follow-ups on file. documented in this encounter [facility] 05-19-2025 Note [facility] [address] [facility] [address] Dept: [phone] SUBJECTIVE HPI: Milena Mcghee is a 79 y.o. year old here today for LEFT L4 and L5 MBB #2 today. Patient [...] Current Outpatient Medications Medication Sig Dispense Refill amLODIPine (Norvasc) 5 MG tablet Take 1 tablet by mouth every morning (before breakfast). atorvastatin (Lipitor) 10 MG tablet Take 1 tablet by mouth every morning (before breakfast). gabapentin (Neurontin) 300 MG capsule Take 600 mg by mouth every morning (before breakfast). lisinopril 20 MG tablet Take 1 tablet by mouth every morning (before breakfast). acetaminophen (Tylenol) 500 MG tablet every 8 hours as needed. cholecalciferol (Vitamin D-3) 50 MCG (2000 UT) tablet Take by mouth daily. Multiple Vitamin (Multi Vitamin) [...] IntraVENous 2 times per day Polina Carpio BURGLAR ALARM INSPECTOR - FASHION CONSULTANT SELLING sodium chloride 0.9% (NS) flush 10 mL 10 mL IntraVENous PRN Polina Carpio APRN - FASHION CONSULTANT SELLING Review of Systems Constitutional: Negative for fever. OBJECTIVE Vitals: 05/19/25 0946 BP: 127/69 Pulse: 70 Resp: 16 Temp: (!) 35.8 ?C (96.5 ?F) TempSrc: Temporal SpO2: 96% Physical Exam Constitutional: General: She is not [...] Mood and affect normal. Speech: Speech normal. --------- (more content not included)... [facility] 05-19-2025 Nurse Note Denies pain. Denies neuro deficits. Low back band Aid dry intact. Instructions re given to patient. Patient is self driven. [facility] 05-19-2025 Nurse Note Denies pain. Denies neuro deficits. Low back band Aid dry intact. Instructions re given to patient. Patient is self driven. documented in this encounter [facility] 04-14-2025 History of Present illness Narrative Images from the original note were not included. [facility] [address] [facility] [address] Dept: [phone] Dept Chief Complaint Patient presents with Back [...] Prior Pain Clinic -- Dr Morrison in [place] Chronic opiates -- No Previous Pain Procedures [...] follow-ups on file. documented in this encounter [facility] 03-23-2025 Note Referral and last OV note sent to number provided [facility] 03-23-2025 Telephone encounter Note Referral and last OV note sent to number provided [facility] 03-23-2025 Miscellaneous Notes Referral and last OV note sent to number provided Name of caller: Milena Contact phone number: [phone] Relationship to Patient: patient Provider: MD Anthony Practice: [facility]ventional Pain [facility] Chief Complaint/Reason for Call: Patient called in requesting that her PT referral be sent to [facility] phone # [phone] Please be advised Best time of day caller can be reached: Any Patient advised that office/PCP has 24-48 business hours to return their call: N/A documented in this encounter [facility] 03-23-2025 Telephone encounter Note Name of caller: Milena Contact phone number: [phone] Relationship to Patient: patient Provider: MD Anthony Practice: [facility] Pain [facility] Chief Complaint/Reason for Call: Patient called in requesting that her PT referral be sent to [facility] phone # [phone] Please be advised Best time of day caller can be reached: Any Patient advised that office/PCP has 24-48 business hours to return their call: N/A [facility] 02-28-2025 Evaluation note Diagnosis Onset Date Resolution Cystitis acute February 28, 2025 4:11pm Chronic lower back pain chronic M 2024 4:11pm Hyperlipidemia LDL goal <130 acute March 14, 2025 3:49pm Multiple joint pain acute February 172024 3:49pm Hypertension chronic March 14 3:49pm Chronic kidney disease, stage 3b acute April 05, 2025 4:42pm Vitamin D deficiency, unspecified acute April 05, 2025 4:42pm Ache in joint acute April 28, 2025 5:19pm Chronic kidney disease, stage 3b acute April 28, 2025 5:19pm Elevated PTHrP level acute April 28, 2025 5:19pm Fatigue acute April 28 5:19pm Lightheaded acute April 28 5:19pm Multiple joint pain acute April 28, 2025 5:19pm Cystitis acute May 16 4:40pm Frequency of urination acute 2024 4:40pm [facility] Work Phone: 1(649) 213-568404-25-2025 History of Present illness Narrative* Chantell Cruz MD - 02/10/2025 1:30 PM EDT Images from the original note were not included. [facility] [address] [facility] [address] Dept: [phone] Dept Chief Complaint Patient presents with Follow-up [...] Prior Pain Clinic -- Dr Morrison in [place] Chronic opiates -- No Previous Pain Procedures [...] lumbar core stabilizing muscles... Not currently adequately controlled,with good relief from her first but not [...] but this would likely have to be [id number], and not something I would necessarily recommend given themore questionable chance of success. No follow-ups on file. documented in this [facility]04-18-2025 Hospital Discharge instructions* Discharge Instructions* Chantell Cruz MD - 02/03/2025 10:11 AM [...] hours (showers are okay). - Call Dr Curz's office (or go to ER after hours or on weekends) if having significantly worsened back or leg pain, significant leg weakness, loss of bowel/bladder control, inability to urinate, fever, or severe positional headache (headache that is significant while upright, but immediately improved with lying flat) - Dr Cruz's office will call you this week to follow-up documented in this [facility]04-18-2025 Procedure note* Op Note - Chantell Cruz MD - 02/03/2025 9:54 AM EDT OPERATIVE NOTE DATE: 02/03/25 [facility] patient was [facility] home in stable [facility]. [id number] Miscellaneous Notes* Op Note - Chantell Cruz MD - 02/03/2025 9:54 AM EDT OPERATIVE NOTE DATE: 02/03/25 [facility] [...] home in stable condition. documented in this [facility]04-18-2025 History and physical note* Chantell Cruz MD - 02/03/2025 8:42 AM EDT Images from the original note were not included. [facility] [address] [place] [address] Dept: [phone] SUBJECTIVE HPI: Milena Mcghee is a 79 [...] 2 times per day Polina Carpio APRN -[place] sodium chloride 0.9% (NS) flush 10 mL [...] benefits, and alternatives. No follow-ups on file. [employer] Phone: 1(471) 232-148204-18-2025 History and physical note* Chantell Cruz MD - 02/03/2025 8:42 AM EDT Images from the original note were not included. [facility] [address] [facility] [address] Dept: [phone] SUBJECTIVE HPI: Milena Mcghee is a 79 [...] IntraVENous 2 times per day Polina Carpio BURGLAR ALARM INSPECTOR -FASHION CONSULTANT SELLING sodium chloride 0.9% (NS) flush 10 mL [...] No follow-ups on file. documented in this [facility]04-18-2025 [facility] [address] [facility] [address] Dept: [phone] SUBJECTIVE HPI: Milena Mcghee is a 79 [...] IntraVENous 2 times per day Polina Carpio BURGLAR ALARM INSPECTOR - FASHION CONSULTANT SELLING sodium chloride 0.9% (NS) flush 10 mL 10 mL IntraVENous PRN Polina Carpio BURGLAR ALARM INSPECTOR - FASHION CONSULTANT SELLING Review of Systems Constitutional: Negative for fever. OBJECTIVE Vitals: 02/03/25 0857 BP: 116/62 Pulse: 74 Resp: 18 Temp: 36.1 ?C (97 ?F) TempSrc: Tympanic SpO2: 98% Physical Exam Constitutional: General: She is not in acute distress. Appearance: She is well-developed. She is not diaphoretic. Eyes: Conju (more content not included)...[facility]04-11-2025 Telephone encounter Note* Telephone Encounter - Dana Westbrook MA - 01/27/2025 10:01 AM EDT Office will contact patient to schedule [place] [id number] Miscellaneous Notes* Telephone Encounter - Dana Westbrook MA - 01/27/2025 10:01 AM EDT Office will contact patient to schedule * Telephone Encounter - Alka Hartmann - 01/26/2025 2:23 PM EDT Name of caller: Milena Contact phone number: [phone] Relationship to Patient: patient Provider: Dr Cruz Practice: Pain Management Chief Complaint/Reason for Call: Pt calling back to check on next injection. Pt states initial injection lasted about 8 hours. Please call back to advise. Best time of day caller can be reached: Any Patient advised that office/PCP has 24-48 business hours to return their call: Yes * Telephone Encounter - Chantell Cruz MD - 01/25/2025 5:21 PM EDT Not sure what to make of that groin / leg pain, but the back pain in this case was 100% better for 5-6 hrs, so we can proceed with MBB #2 now under fluoro * Telephone Encounter - Sarita Clay - 01/23/2025 1:40 PM EDT Message released to patient as written. Patient's further questions if applicable: Pt returned call from office and gave the following responses... Using the pain scale above what was the pain prior to the injection and what was the pain followingthe injection? Prior to injection pain level varied [...] relayed to the patient from encounter: N/A * Telephone Encounter - Yuliya Raymond MA - 01/23/2025 1:25 PM EDT Called patient to obtain relief information from procedure done on 01/20/2025 which was the first Bilateral L4-5 lumbar MBB. Upon returned call please obtain: (On the pain scale of 0 being no pain and 10 being the worst pain) Using the pain scale above what was the pain prior to the injection and what was the pain followingthe injection? 2.The percentage of relief from the lumbar MBB? 3. How long did the relief last? [id number] Telephone encounter Note* Telephone Encounter - Alka Hartmann - 01/26/2025 2:23 PM EDT Name of caller: Milena Contact phone number: [phone] Relationship to Patient: patient Provider: Dr Cruz Practice: Pain Management Chief Complaint/Reason for Call: Pt calling back to check on next injection. Pt states initial injection lasted about 8 hours. Please call back to advise. Best time of day caller can be reached: Any Patient advised that office/PCP has 24-48 business hours to return their call: Yes [facility] [id number] Miscellaneous Notes* Telephone Encounter - Alka Hartmann - 01/26/2025 2:23 PM EDT Name of caller: Milena Contact phone number: [phone] Relationship to Patient: patient Provider: Dr Cruz Practice: Pain Management Chief Complaint/Reason for Call: Pt calling back to check on next injection. Pt states initial injection lasted about 8 hours. Please call back to advise. Best time of day caller can be reached: Any Patient advised that office/PCP has 24-48 business hours to return their call: Yes * Telephone Encounter - Chantell Cruz MD - 01/25/2025 5:21 PM EDT Not sure what to make of that groin / leg pain, but the back pain in this case was 100% better for 5-6 hrs, so we can proceed with MBB #2 now under fluoro * Telephone Encounter - Sarita Clay - 01/23/2025 1:40 PM EDT Message released to patient as written. Patient's further questions if applicable: Pt returned call from office and gave the following responses... Using the pain scale above what was the pain prior to the injection and what was the pain followingthe injection? Prior to injection pain level varied [...] relayed to the patient from encounter: N/A * Telephone Encounter - Yuliya Raymond MA - 01/23/2025 1:25 PM EDT Called patient to obtain relief information from procedure done on 01/20/2025 which was the first Bilateral L4-5 lumbar MBB. Upon returned call please obtain: (On the pain scale of 0 being no pain and 10 being the worst pain) Using the pain scale above what was the pain prior to the injection and what was the pain followingthe injection? 2.The percentage of relief from the lumbar MBB? 3. How long did the relief last? documented in this [facility]04-09-2025 Telephone encounter Note* Telephone Encounter - Chantell Cruz MD - 01/25/2025 5:21 PM EDT Not sure what to make of that groin / leg pain, but the back pain in this case was 100% better for 5-6 hrs, so we can proceed with MBB #2 now under fluoro [employer] Phone: [phone]) 205-346904-09-2025 Miscellaneous Notes* Telephone Encounter - Chantell Cruz MD - 01/25/2025 5:21 PM EDT Not sure what to make of that groin / leg pain, but the back pain in this case was 100% better for 5-6 hrs, so we can proceed with MBB #2 now under fluoro * Telephone Encounter - Sarita Clay - 01/23/2025 1:40 PM EDT Message released to patient as written. Patient's further questions if applicable: Pt returned call from office and gave the following responses... Using the pain scale above what was the pain prior to the injection and what was the pain followingthe injection? Prior to injection pain level varied [...] relayed to the patient from encounter: N/A * Telephone Encounter - Yuliya Raymond MA - 01/23/2025 1:25 PM EDT Called patient to obtain relief information from procedure done on 01/20/2025 which was the first Bilateral L4-5 lumbar MBB. Upon returned call please obtain: (On the pain scale of 0 being no pain and 10 being the worst pain) Using the pain scale above what was the pain prior to the injection and what was the pain followingthe injection? 2.The percentage of relief from the lumbar MBB? 3. How long did the relief last? documented in this [facility] [id number] Telephone encounter Note* Telephone Encounter - Sarita Clay - 01/23/2025 1:40 PM EDT Message released to patient as written. Patient's further questions if applicable: Pt returned call from office and gave the following responses... Using the pain scale above what was the pain prior to the injection and what was the pain followingthe injection? Prior to injection pain level varied [...] relayed to the patient from encounter: N/A [facility] [id number] Miscellaneous Notes* Telephone Encounter - Sarita Clay - 01/23/2025 1:40 PM EDT Message released to patient as written. Patient's further questions if applicable: Pt returned call from office and gave the following responses... Using the pain scale above what was the pain prior to the injection and what was the pain followingthe injection? Prior to injection pain level varied [...] relayed to the patient from encounter: N/A * Telephone Encounter - Yuliya Raymond MA - 01/23/2025 1:25 PM EDT Called patient to obtain relief information from procedure done on 01/20/2025 which was the first Bilateral L4-5 lumbar MBB. Upon returned call please obtain: (On the pain scale of 0 being no pain and 10 being the worst pain) Using the pain scale above what was the pain prior to the injection and what was the pain followingthe injection? 2.The percentage of relief from the lumbar MBB? 3. How long did the relief last? documented in this [facility]SBrec[facility] [id number] NoteCalled patient to obtain relief information from procedure [...] MBB? 3. How long did the relief last?[facility]04-07-2025 Telephone encounter Note* Telephone Encounter - Yuliya Raymond MA - 01/23/2025 1:25 PM EDT Called patient to obtain relief information from procedure done on 01/20/2025 which was the first Bilateral L4-5 lumbar MBB. Upon returned call please obtain: (On the pain scale of 0 being no pain and 10 being the worst pain) Using the pain scale above what was the pain prior to the injection and what was the pain followingthe injection? 2.The percentage of relief from the lumbar MBB? 3. How long did the relief last? [facility]tq[facility]vv98[facility]68 Hospital Discharge instructions* Discharge Instructions* Chantell Cruz MD - 01/20/2025 1:24 PM [...] this week to follow-up documented in this [facility]04-04-2025 Procedure note* Op Note - Chantell Cruz MD - 01/20/2025 1:07 PM EDT OPERATIVE NOTE DATE: 01/21/24 [facility] patient was discharged home in stable condition. [facility] HospitalOdciwv09-08-4119 Miscellaneous Notes* Op Note - Chantell Cruz MD - 01/20/2025 1:07 PM EDT OPERATIVE NOTE DATE: 01/21/24 [facility] [...] patient was discharged home in stable condition. * Perioperative Nursing Note - Demetrius Rose RN - 01/20/2025 12:40 PM EDT Discharged to home . Local anesthesia, patient escorted to waiting room. . AVS and education reviewed with patient she verbalized understanding. All questions answered and patient denies dizziness or nausea. Denies any numbness or weakness, vital signs are stable. Patient valuables sent. documented in this [facility]04-04-2025 Attending History and physical note* Chantell Cruz MD - 01/20/2025 12:55 PM EDT H&P reviewed. The patient was examined and there are no changes to the H&P. Will proceed with bilateral L4 and L5 MBB today. Source Note - Chantell Cruz MD - 12/30/2024 3:45 PM EDT Images from the original note were not included. [facility] [address] [facility] [address] Dept: [phone] Dept Chief Complaint Patient presents with Back Pain SUBJECTIVE HPI: Milena Mcghee is a 79 y.o. year old here today for follow-up of chronic low back pain. She was lastseen by ma back in 10/2023. Her back pain has [...] Prior Pain Clinic -- Dr Morrison in [place] Chronic opiates -- No Previous Pain Procedures [...] benefits, and alternatives. No follow-ups on file. [facility] Work Phone: 1(211) 612-194304-04-2025 NoteH&P reviewed. The patient was examined and there are no changes to the H&P. Will proceed with bilateral L4 and L5 MBB today.[facility]04-04-2025 History and physical note* Chantell Cruz MD - 01/20/2025 12:55 PM EDT H&P reviewed. The patient was examined and there are no changes to the H&P. Will proceed with bilateral L4 and L5 MBB today. Source Note - Chantell Cruz MD - 12/30/2024 3:45 PM EDT Images from the original note were not included. [facility] [address] [facility] [address] Dept: [phone] Dept Chief Complaint Patient presents with Back [...] Prior Pain Clinic -- Dr Morrison in [place] Chronic opiates -- No Previous Pain Procedures [...] No follow-ups on file. documented in this [facility]04-04-2025 Nurse Note* Perioperative Nursing Note - Demetrius Rose RN - 01/20/2025 12:40 PM EDT Discharged to home . Local anesthesia, patient escorted to waiting room. . AVS and education reviewed with patient she verbalized understanding. All questions answered and patient denies dizziness or nausea. Denies any numbness or weakness, vital signs are stable. Patient valuables sent. [facility] [id number] Evaluation note* Diagnosis Onset Date Resolution Status Admit Date Cystitis acute January 17 4:12pm Cystitis acute February 28, 2025 4:11pm Chronic lower back pain chronic M ay 2024 4:11pm Hyperlipidemia LDL goal <130 acute March 14, 2025 3:49pm Multiple joint pain acute February 172024 3:49pm Hypertension chronic March 14 3:49pm Chronic kidney disease, stage 3b acu te April 05, 2025 4:42pm Vitamin D deficiency, unspecified acute April 05, 2025 4:42pm Ache in joint acute April 28, 2025 5:19pm Chronic kidney disease, stage 3b acu te April 28, 2025 5:19pm Elevated PTHrP level acute April 28, 2025 5:19pm Fatigue acute April 28 5:19pm Lightheaded acute April 28 5:19pm Multiple joint pain acute April 28, 2025 5:19pm [facility] Work Phone: 1(849) 623-986303-19-2025 Evaluation note* Diagnosis Onset Date Resolution Status Admit Date Cystitis acute January 04 5:33pm Spinal stenosis, lumbar abby on without neurogenic claudication acute January 04, 2025 5:33pm Cystitis acute January 17 4:12pm Cystitis acute February 28, 2025 4:11pm Chronic lower back pain chronic M ay 2024 4:11pm Hyperlipidemia LDL goal <130 acute March 14, 2025 3:49pm Multiple joint pain acute February 172024 3:49pm Hypertension chronic March 14 3:49pm Chronic kidney disease, stage 3b acu te April 05, 2025 4:42pm Vitamin D deficiency, unspecified acute April 05, 2025 4:42pm [facility] Work Phone: 1(719) 692-564303-14-2025 History of Present illness Narrative* Chantell Cruz MD - 12/30/2024 3:45 PM EDT Images from the original note were not included. [facility] [address] [facility] [address] Dept: [phone] Dept Chief Complaint Patient presents with Back [...] Prior Pain Clinic -- Dr Morrison in [place] Chronic opiates -- No Previous Pain Procedures [...] No follow-ups on file. documented in this [facility]03-14-2025 [facility] [address] [facility] [address] Dept: [phone] Dept Chief Complaint Patient presents with Back [...] Prior Pain Clinic -- Dr Morrison in [place] Chronic opiates -- No Previous Pain Procedures [...] (before breakfast). cholecalciferol (Vitamin D-3) 50 MCG (1999) tablet Take by mouth daily. gabapentin (Neurontin) 300 MG capsule Take 600 mg by mouth every morning (before breakfast). ketorolac (Acular) 0.5 % ophthalmic solution INSTILL 1 DROP INTO AFFECTED EYE 4 TIMES DAILY. BRING TO SURGERY CENTER FOR USE AFTER CATARACT SURGERY li (more content not included)...[facility]03-10-2025 Note Discharged to home . Accompanied by friend . AVS and education reviewed with patient and friend, both verbalized understanding. All questions answered and patient denies dizziness or nausea. Patient tolerating fluids and vital signs are stable. Patient valuables sent.[facility]03-10-2025 Nurse Note* Perioperative Nursing Note - Franchesca Garner RN - 12/26/2024 9:48 AM EDT Discharged to home . Accompanied by friend . AVS and education reviewed with patient and friend, both verbalized understanding. All questions answered and patient denies dizziness or nausea. Patient tolerating fluids and vital signs are stable. Patient valuables sent. [facility] [id number] Miscellaneous Notes* Perioperative Nursing Note - Franchesca [...] placement of posterior chamber intraocular lens implant. MEAT SEAFOOD ASSOCIATE: See operating room record ACCOUNT COLLECTOR: See operating room record ANESTHESIA: Local with [...] MD 12/26/24 9:32 AM documented in this [facility]03-10-2025 Hospital Discharge instructions* Discharge Instructions* Prema Garcia [...] you have any problems. documented in this [facility]03-10-2025 NotePatient: Milena Mcghee Procedure Summary Date: 12/26/24 Room / Location: [place] [address] / [facility] Anesthesia Start: 849 Anesthesia Stop: 920 Procedure: PHACOEMULSIFICATION, CATARACT, WITH IOL INSERTION LEFT EYE (Left: Eye) Diagnosis: Nuclear sclerotic cataract of left eye (Nuclear sclerotic cataract of left eye) Surgeons: Prema Garcia MD Responsible Provider: Vivienne Anesthesiologist - Blaine/MD Helen Anesthesia Type: MAC ASA Status: 3 [...] Allowed opportunity for questions and acknowledgement of understanding.[facility]03-10-2025 NotePatient: Milena Mcghee Procedure Summary Date: 12/26/24 Room / Location: [place] [address] / [facility] Anesthesia Start: 849 Anesthesia Stop: 920 Procedure: PHACOEMULSIFICATION, CATARACT, WITH IOL INSERTION LEFT EYE (Left: Eye) Diagnosis: Nuclear sclerotic cataract of left eye (Nuclear sclerotic cataract of left eye) Surgeons: Prema Garcia MD Responsible Provider: No Anesthesiologist - [facility]/MD Helen Anesthesia Type: MAC ASA [...] discharged once all PACU criteria has been met.[facility]03-10-2025 Procedure note* Op Note - Prema Garcia MD - 12/26/2024 8:50 AM EDT Operative Report NAME: Milena Mcghee : 1945 AGE: 79 y.o. SURGEON: Prema Garcia M.D. OPERATIVE EYE: left PREOPERATIVE DIAGNOSIS: 1. Nuclear sclerotic cataract. POSTOPERATIVE DIAGNOSIS: 1. Nuclear sclerotic cataract. OPERATION: Cataract extraction by phacoemulsification with placement of posterior chamber intraocular lens implant. MEAT SEAFOOD ASSOCIATE: See operating room record ACCOUNT COLLECTOR: See operating room record ANESTHESIA: Local with [...] condition. Prema Garcia MD 12/26/24 9:[address] [facility] [id number] History and physical note* Prema Garcia MD [...] (74.8 kg) SpO2 97% BMI 27.46 kg/m [facility] HospitalNaebae54-47-0670 History and physical note* Prema Garcia MD [...] 97% BMI 27.46 kg/m documented in this [facility]03-10-2025 NoteInterval History and Physical I have interviewed [...] (74.8 kg) SpO2 97% BMI 27.46 kg/m? [facility] [id number] NotePatient: Milena Mcghee Procedure Information Date/Time: 12/26/24 0845 Procedure: PHACOEMULSIFICATION, CATARACT, WITH IOL INSERTION LEFT EYE (Left: Eye) - 8:45am surgery, 45 mins Location: [place] [facility] / [facility] Surgeons: [...] 07/31/2023 9:03 AM Equipment Requests: Additional Equipment RequestsMcl[facility] [id number] Evaluation note* Diagnosis Onset Date Resolution Status [...] back pain chronic M ay 2024 4:11pm [facility] Work Phone: 1(540) 296-312502-03-2025 Procedure anesthesia Narrative* Procedure Summary Procedure Name [...] Peripheral IV Placement Date: 11/21/24; Placement Time: 0744; Catheter Size: 22 G; Orientation: Anterior, Left, Proximal; Location: Forearm; Inserted by: sc; Insertion Attempts: 1; Removal Date: 11/21/24; Removal Time: 0910 11/21/24 0744 by Kary Levi RN 11/21/24 0910 by Demetrius Rose RN documented in this encounter [facility] HospitalMizhnq26-14-5196 Note* Addendum Note - ANGIE Montgomery CRNA - 11/21/2024 9:12 AM EST Addendum created 11/21/24 0912 by ANGIE Montgomery CRNA Flowsheet accepted [facility] [id number] Miscellaneous Notes* Addendum Note - ANGIE Montgomery CRNA - 11/21/2024 9:12 AM EST Addendum created 11/21/24911 by ANGIE Montgomery CRNA Flowsheet accepted * Anesthesia Discharge Note - ANGIE Montgomery CRNA - 11/21/2024 8:31 AM EST Patient: Milena Mcghee Procedure Summary Date: 11/21/24 Room / Location: [place] [address] / [facility] Anesthesia Start: 752 Anesthesia Stop: 829 Procedure: PHACOEMULSIFICATION, CATARACT, WITH IOL INSERTION RIGHT EYE (Right: Eye) Diagnosis: Nuclear sclerotic cataract of right eye (Nuclear sclerotic cataract of right eye) Surgeons: Prema Garcia MD Responsible Provider: No Anesthesiologist - [facility]/MD Helen Anesthesia Type: MAC ASA [...] criteria has been met. documented in this [facility]02-03-2025 Hospital Discharge instructions* Discharge Instructions* Prema Garcia [...] you have any problems. documented in this [facility]02-03-2025 Note* Anesthesia Discharge Note - Conrado Mckeon APRN - FEED PROJECT ENGINEER - 11/21/2024 8:31 AM EST Patient: Milena Mcghee Procedure Summary Date: 11/21/24 Room / Location: [place] [facility] / [facility] Anesthesia Start: 752 Anesthesia Stop: [...] once all PACU criteria has been met. [facility]02-03-2025 NotePatient: Milena Mcghee Procedure Summary Date: 11/21/24 Room / Location: [place] [facility] / [facility] Anesthesia Start: 752 Anesthesia Stop: [...] discharged once all PACU criteria has been met.[facility] [id number] Anesthesiology Postoperative evaluation and management note * Anesthesia Postprocedure Evaluation - ANGIE Montgomery CRNA - 11/21/2024 8:31 AM EST Patient: Milena Mcghee Procedure Summary Date: 11/21/24 Room / Location: [place] [address] / [facility] Anesthesia Start: 752 Anesthesia Stop: [...] opportunity for questions and acknowledgement of understanding. [employer] [facility] Work Phone: 1(522) 321-144802-03-2025 NotePatient: Milena Mcghee Procedure Summary Date: 11/21/24 Room / Location: [place] [address] / [facility] Anesthesia Start: 752 [...] Allowed opportunity for questions and acknowledgement of understanding.[employer] [facility]02-03-2025 Surgical operation note* Anesthesia Postprocedure Evaluation - ANGIE Montgomery CRNA - 11/21/2024 8:31 AM EST Patient: Milena Mcghee Procedure Summary Date: 11/21/24 Room / Location: [place] [address] / [facility] Anesthesia Start: 752 Anesthesia Stop: [...] Eye) - 8am surgery, 45 mins Location: [place] [facility] / [facility] Surgeons: Prema Garcia MD Relevant [...] Requests: Additional Equipment Requests documented in this [facility]02-03-2025 Attending History and physical note* Prema Garcia [...] Eye) - 8am surgery, 45 mins Location: [place] [facility] / [facility] Surgeons: Prema [...] S/P L3-L4 FUSION 2013 AND 2017 ;[facility] PA[facility] MGMT ; ON NEURONTIN 6) [...] DM, Asthma/COPD, ELVIS, CAD, CHF, a fib, OH, TIA/CVA, DVT/PE Hx problems with anesthesia? - [...] Barney DO at 11/14/2024 8:57 PM EST Darell [id number] Note* Op Note - Prema Garcia MD - 11/21/2024 7:53 AM EST Operative Report NAME: Milena Mcghee : 1945 AGE: 79 y.o. SURGEON: Prema Garcia M.D. OPERATIVE EYE: right PREOPERATIVE DIAGNOSIS: 1. Nuclear sclerotic cataract. POSTOPERATIVE DIAGNOSIS: 1. Nuclear sclerotic cataract. OPERATION: Cataract extraction by phacoemulsification with placement of posterior chamber intraocular lens implant. MEAT SEAFOOD ASSOCIATE: See operating room record ACCOUNT COLLECTOR: See operating room record ANESTHESIA: Local with [...] condition. Prema Garcia MD 11/21/24 8:[address] [facility] [id number] Note* Op Note - Prema Garcia MD - 11/21/2024 7:53 AM EST Operative Report NAME: Milena Mcghee : 1945 AGE: 79 y.o. SURGEON: Prema Garcia M.D. OPERATIVE EYE: right PREOPERATIVE DIAGNOSIS: 1. Nuclear sclerotic cataract. POSTOPERATIVE DIAGNOSIS: 1. Nuclear sclerotic cataract. OPERATION: Cataract extraction by phacoemulsification with placement of posterior chamber intraocular lens implant. MEAT SEAFOOD ASSOCIATE: See operating room record ACCOUNT COLLECTOR: See operating room record ANESTHESIA: Local with [...] condition. Prema Garcia MD 11/21/24 8:[address] [facility] HospitalAoyxvb78-05-4034 NoteH&P reviewed. The patient was examined and there are no changes to the H&P.[facility]02-03-2025 History and physical note* Prema Garcia MD - 11/21/2024 7:53 AM EST H&P reviewed. The patient was examined and there are no changes to the H&P. Source Note - Sat Saul Lopez PA-C - 11/14/2024 12:00 PM EST Comprehensive PreSurgical History and Physical ? Name: Milena cMghee : 1945 (Age-79 y.o.) Date of Service: Pt seen/examined on 11/14/2024 Procedure Information Date/Time: 11/21/24 0800 Procedure: PHACOEMULSIFICATION, CATARACT, WITH IOL INSERTION RIGHT EYE (Right: Eye) - 8am surgery, 45 mins Location: [place] [facility] / [facility] Surgeons: [...] S/P L3-L4 FUSION 2013 AND 2017 ;[facility] PAIN MGMT ; ON NEURONTIN 6) [...] DM, Asthma/COPD, ELVIS, CAD, CHF, a fib, OH, TIA/CVA, DVT/PE Hx problems with anesthesia? - [...] 11/14/2024 8:57 PM EST documented in this [facility]02-03-2025 Miscellaneous Notes* Op Note - Prema Garcia MD - 11/21/2024 7:53 AM EST Operative Report NAME: Milena Mcghee : 1945 AGE: 79 y.o. SURGEON: Prema Garcia M.D. OPERATIVE EYE: right PREOPERATIVE DIAGNOSIS: 1. Nuclear sclerotic cataract. POSTOPERATIVE DIAGNOSIS: 1. Nuclear sclerotic cataract. OPERATION: Cataract extraction by phacoemulsification with placement of posterior chamber intraocular lens implant. MEAT SEAFOOD ASSOCIATE: See operating room record ACCOUNT COLLECTOR: See operating room record ANESTHESIA: Local with [...] private vehicle Belongings sent. documented in this [facility]02-03-2025 Note* Perioperative Nursing Note - Demetrius Rose [...] Mode of transportation private vehicle Belongings sent. [facility] HospitalDhcrsh74-88-8911 Note* Perioperative Nursing Note - Demetrius Rose [...] Mode of transportation private vehicle Belongings sent. [facility] HospitalXoswdv97-70-2235 NoteDischarged to home . Accompanied by daughter, Yoko . AVS and education reviewed with patient and daughter, both verbalized understanding. There is a question about third eye drop. Message out to physician. Family opted not to wait for response. This RN will call with instructions. Mode of transportation private vehicle Belongings sent.[facility]01-27-2025 Anesthesiology Preoperative evaluation and management note* Anesthesia Preprocedure Evaluation - Conrado Mckeon APRN - FEED PROJECT ENGINEER - 11/14/2024 12:32 PM EST Patient: Milena Mcghee Procedure Information Date/Time: 11/21/24 0800 Procedure: PHACOEMULSIFICATION, CATARACT, WITH IOL INSERTION RIGHT EYE (Right: Eye) - 8am surgery, 45 mins Location: [place] [facility] Surgeons: [...] 9:03 AM Equipment Requests: Additional Equipment Requests Darell [id number] NotePatient: Milena Mcghee Procedure Information Date/Time: 11/21/24 0800 Procedure: PHACOEMULSIFICATION, CATARACT, WITH IOL INSERTION RIGHT EYE (Right: Eye) - 8am surgery, 45 mins Location: [place] [facility] / [facility] Surgeons: [...] 07/31/2023 9:03 AM Equipment Requests: Additional [facility]sRe[facility]01[facility]-2025 NoteComprehensive PreSurgical History and Physical ? Name: Milena Mcghee : 1945 (Age-79 y.o.) Date of Service: Pt seen/examined on 11/14/2024 Procedure Information Date/Time: 11/21/24 0800 Procedure: PHACOEMULSIFICATION, CATARACT, WITH IOL INSERTION RIGHT EYE (Right: Eye) - 8am surgery, 45 mins Location: [place] [facility] / [facility] Surgeons: [...] S/P L3-L4 FUSION 2013 AND 2017 ;[facility] PAIN MGMT ; ON NEURONTIN 6) [...] DM, Asthma/COPD, ELVIS, CAD, CHF, a fib, OH, TIA/CVA, DVT/PE Hx problems with anesthesia? - [...] Mucous membranes are moist. (more content not included)...[facility]01-27-2025 NoteComprehensive PreSurgical History and Physical ? Name: Milena Mcghee : 1945 (Age-79 y.o.) Date of Service: Pt seen/examined on 11/14/2024 Procedure Information Date/Time: 11/21/24 0800 Procedure: PHACOEMULSIFICATION, CATARACT, WITH IOL INSERTION RIGHT EYE (Right: Eye) - 8am surgery, 45 mins Location: [place] [id number] / [facility] Surgeons: Prema Garcia MD Chief [...] S/P L3-L4 FUSION 2013 AND 2017 ;[facility] PAIN MGMT ; ON NEURONTIN 6) [...] DM, Asthma/COPD, ELVIS, CAD, CHF, a fib, OH, TIA/CVA, DVT/PE Hx problems with anesthesia? - [...] , Rfl: cholecalciferol (Vitamin D-3) 50 MCG (1999) capsule, Take 1 capsule by mouth daily., [...] Mucous membranes are moist. (more content not included)...[facility]12-12-2024 Evaluation note* Diagnosis Onset Date Resolution Status Admit Date Cystitis acute September 29, 2024 4:50pm Chronic lower back pain chronic D ec2023 4:50pm Cystitis acute December 08, 2024 7:56pm Lower abdominal pain acute 2024 7:56pm Lower back pain acute December 08, 2024 7:56pm Cystitis acute January 04 5:33pm Spinal stenosis, lumbar abby on without neurogenic claudication acute January 04, 2025 5:33pm [facility] Work Phone: 1(479) 299-260411-26-2024 Evaluation note* Diagnosis Onset Date Resolution Status Admit Date Pain of left heel acute r 2023 4:30pm Plantar fasciitis acute r 2023 4:30pm Cystitis acute September 29, 2024 4:50pm Chronic lower back pain chronic D ec2023 4:50pm Cystitis acute December 08, 2024 7:56pm Lower abdominal pain acute Febr ua2024 7:56pm Lower back pain acute December 08, 2024 7:56pm [facility] Work Phone: 1(720) 630-674101-05-2024 History of Present illness Narrative* Chantell Cruz MD - 10/23/2023 2:45 PM EST Images from the original note were not included. [facility] [address] [facility] [address] Dept: [phone] Dept Chief Complaint Patient presents with Follow-up [...] twice a day), Flexeril 5 mg PRN, [id number] mg daily ANY SIGNIFICANT SIDE EFFECTS FROM [...] Prior Pain Clinic -- Dr Morrison in [place] Chronic opiates -- No Previous Pain Procedures [...] SURGERY 2013 and 2018 L3-4 fusion CHOLECYSTECTOMY Current Outpatient Medications Medication Sig Dispense Refill acetaminophen (Tylenol) 500 MG tablet every 4 hours. amLODIPine (Norvasc) 5 MG tablet Take 1 tablet by mouth daily. atorvastatin (Lipitor) 10 MG tablet Take 1 tablet by mouth daily. cholecalciferol (Vitamin D-3) 50 MCG (2000 UT) capsule Take 1 capsule by mouth [...] No follow-ups on file. documented in this [facility]10-24-2023 Nurse Note* Page Soliman RN - 08/11/2023 7:30 AM EDT Spoke to patient to provide nuclear stress test instructions. [facility] [id number] Nurse Note* Page Soliman RN - 08/11/2023 7:30 AM EDT Spoke to patient to provide nuclear stress test instructions. documented in this [facility]10-13-2023 History of Present illness Narrative* Ba Hull MD - 07/31/2023 9:00 AM EDT [facility] Cardiology [facility] CARDIOLOGY [address] [facility] [address] Dept: [phone] Dept Visit type: New : 1945 Chief [...] SURGERY 2013 and 2018 L3-4 fusion CHOLECYSTECTOMY Family History Family History [...] 4. Hyperlipidemia: On therapy. documented in this [facility]08-28-2023 Miscellaneous Notes* Telephone Encounter - Rupinder Arroyo MA - 06/15/2023 12:12 PM EDT Patient is informed with her results. Rupinder Arroyo MA * Telephone Encounter - Rupinder Arroyo MA - 06/15/2023 12:11 PM EDT ----- Message from Tram Sampson MD sent at 06/15/2023 12:03 PM EDT ----- Pap test normal; repeat in 1 year. Tram Sampson MD [facility] History of Present illness Narrative* Tram Sampson [...] No history of dysuria, frequency or incontinence WORKING MANAGER: Negative for abnormal vaginal bleeding, abnormal vaginal [...] No follow-ups on file. documented in this encounterReg[facility] [place]08-22-2022 NoteHNO ID: [id number] Author: Tram Sampson MD Service: ? 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 No bleeding noted documented in this [facility] Work Phone: Evaluation note* Diagnosis Onset Date Resolution Status Diarrhea acute Left lower quadrant abdominal pain acute Constipation acute Diarrhea acute Left lower quadrant abdominal pain acute Cystitis acute Dysuria acute Cystitis acute Dysuria [facility] Work Phone: Evaluation note* Diagnosis Onset Date Resolution Status Constipation acute Diarrhea acute Left lower quadrant abdominal pain acute Cystitis acute Dysuria acute Cystitis acute Dysuria acute Hyperlipidemia acute Hypertension [facility] Work Phone: Evaluation note* Diagnosis Onset Date Resolution Status Cystitis acute Dysuria acute Cystitis acute Dysuria acute Hyperlipidemia acute Hypertension chronic Bilateral biceps tendonitis acute Cystitis [facility] Work Phone: Evaluation note* Diagnosis Onset Date Resolution Status Bilateral biceps tendonitis acute Cystitis acute Cough acute Left otitis media acute Maxillary sinusitis, acute a cute Cystitis acute Left shoulder tendinitis acu [facility] Work Phone: Evaluation note* Diagnosis Other enthesopathies, [...] acute Multiple joint pain acute Osteoarthritis acute [facility] Work Phone: Evaluation note* Diagnosis Onset Date Resolution Status Left shoulder pain acute Left shoulder tendinitis acu te Hyperlipidemia LDL goal <130 acute Low back pain radiating to left leg acute Hypertension chronic Dizziness acute Fatigue acute Joint pain acute Multiple joint pain acute Osteoarthritis acute Chronic kidney disease, stage 3b acute Dizziness acute Fatigue acute Maxillary sinusitis acute [facility] Work Phone: Evaluation note* Diagnosis Onset Date Resolution Status Hyperlipidemia LDL goal <130 acute Low back pain radiating to left leg acute Hypertension chronic Dizziness acute Fatigue acute Joint pain acute Multiple joint pain acute Osteoarthritis acute Chronic kidney disease, stage 3b acute Dizziness acute Fatigue acute Maxillary sinusitis acute Chronic kidney disease, stage 3b acute Vitamin D deficiency, unspecified acute [facility] Work Phone: Evaluation note* Diagnosis Onset Date Resolution Status Dizziness acute Fatigue acute Joint pain acute Multiple joint pain acute Osteoarthritis acute Chronic kidney disease, stage 3b acute Dizziness acute Fatigue acute Maxillary sinusitis acute Chronic kidney disease, stage 3b acute Vitamin D deficiency, unspecified acute Dizziness acute Fatigue acute Left lower quadrant abdominal pain acute [facility] Work Phone: Evaluation note* Diagnosis Abnormal liver function tests Abnormal levels of other serum enzymes [facility]* Diagnosis Gynecologic exam normal- Primary Cervical cancer screening Screening for malignant neoplasm of the cervix Breast cancer screening by mammogram Screening for osteoporosis Special screening for osteoporosis Menopause Symptomatic menopausal or female climacteric states [facility]* Diagnosis Dizziness- Primary Dizziness and giddiness Encounter to establish care with new doctor Shortness of breath Essential hypertension Unspecified essential hypertension Precordial chest pain Precordial pain documented in this encounter [facility]* Diagnosis Dizziness Dizziness and giddiness documented in this encounter [facility]* Diagnosis Shortness of breath Precordial chest pain Precordial pain documented in this [facility]* Diagnosis Abnormal liver function tests- Primary Abnormal levels of other serum enzymes Abnormal liver function tests Abnormal levels of other serum enzymes [facility] Diagnosis Abnormal levels of other serum enzymes- Primary [facility] Diagnosis Onset Date Resolution Status Left otitis media acute Postauricular adenopathy acu te Cystitis acute Low back pain radiating to left leg acute Lower back pain acute [facility] Work Phone: Evaluation note* Diagnosis Onset Date Resolution Status Left otitis media acute Postauricular adenopathy acu te Cystitis acute Low back pain radiating to left leg acute Lower back pain acute Cystitis acute Dysuria acute [facility] Work Phone: Evaluation note* Diagnosis Spondylosis without myelopathy or radiculopathy, lumbar region- Primary Postlaminectomy syndrome, lumbar region [facility] Diagnosis Onset Date Resolution Status Cystitis acute Dysuria acute Fatigue acute Headache disorder acute Hyperlipidemia LDL goal <130 acute Hypertension chronic [facility] Work Phone: Evaluation note* Diagnosis Encounter for screening mammogram for malignant neoplasm of breast documented [facility] this [facility]* Diagnosis Encounter for screening mammogram for malignant neoplasm of breast- Primary Encounter for screening mammogram for malignant neoplasm of breast [facility] Diagnosis Other enthesopathies, not elsewhere classified documented in this encounter [facility] note* Diagnosis Chronic kidney disease, stage 3b (HCC)- Primary [facility] Diagnosis Age-related nuclear cataract of right eye- Primary [facility] Diagnosis Age-related nuclear cataract, left- Primary [facility] Diagnosis Lumbar facet arthropathy- Primary Spondylosis of unspecified site without mention of myelopathy [facility] Diagnosis Lumbar back pain Lumbago [facility] Diagnosis Chronic bilateral low back pain without sciatica- Primary Lumbar facet arthropathy Spondylosis of unspecified site without mention of myelopathy Postlaminectomy syndrome, lumbar region [facility] Diagnosis Lumbar facet arthropathy- Primary Spondylosis of unspecified site without mention of myelopathy documented in this encounter [facility] note* Diagnosis Lumbar back pain Lumbago documented in this encounter [facility] note* Diagnosis Gynecologic exam normal- Primary Screening for depression Cervical cancer screening Screening for malignant neoplasm of the cervix Breast cancer screening by mammogram Screening for osteoporosis Special screening for osteoporosis Menopause Symptomatic menopausal or female climacteric states Vaginal atrophy Postmenopausal atrophic vaginitis documented in this encounter [facility]* Diagnosis Chronic left-sided low back pain without sciatica- Primary Postlaminectomy syndrome, lumbar region Lumbar facet arthropathy Spondylosis of unspecified site without mention of myelopathy documented in this encounter [facility] Discharge instructions* Instructions* Chantell Cruz MD - [...] not already have one [facility] Work [facility]: Reason for referral (narrative)* Diagnostic Procedure Only (Routine) - Pending Review Specialty Diagnoses / Procedures Referred By Twan t Referred To Contact [facility] Diagnoses Gynecologic exam normal Breast cancer screening by mammogram Procedures [facility] [place] SCREENING W NOBLE SCREENING DIGITAL BREAST TOMOSYNTHESIS BI SCREENING MAMMOGRAPHY BI 2-VIEW BREAST INC CAD Tram Sampson MD [address] [facility] [address] [place] [address] [facility] [address] [place] [address] Referral ID Status Reason Start Date Expiration Date Visits Requested Visits Authorized [id number] Pending Review Auto-Generat ed Referral 06/10/2023 07/09/2024 1 1 [facility] for referral (narrative)No reason for referral [facility] Work Phone: Reason for visit Narrative* Auth/Cert (Routine) Specialty Diagnoses / Procedures Referred By Contac t Referred To Contact Diagnoses Nuclear sclerotic cataract of right eye Nuclear sclerotic cataract of right eye Procedures ND XCAPSL CTRC RMVL INSJ IO LENS [place]OST[place] [address] [place] [address] Phone: tel: fax: Referral ID Status Reason Start Date Expiration Date Visits Re quested Visits Authorized [id number] 11/08/2024 1 1 [facility] for visit Narrative* Auth/Cert (Routine) Specialty Diagnoses / Procedures Referred By Contac t Referred To Contact Diagnoses Nuclear sclerotic cataract of left eye Nuclear sclerotic cataract of left eye Procedures ND XCAPSL CTRC RMVL INSJ IO LENS [place]OSTH [place] [address] [place] [address] Phone: tel: fax: Referral ID Status Reason Start Date Expiration Date Visits Re quested Visits Authorized [id number] 11/24/2024 1 1 [facility] for visit Narrative* Auth/Cert (Routine) Specialty Diagnoses / Procedures Referred By Contac t Referred To Contact Diagnoses Spondylosis without myelopathy or radiculopathy, lumbar region Spondylosis without myelopathy or radiculopathy, lumbar region Procedures ND NJX DX/THER AGT PVRT FACET JT LMBR/SAC 1 LEVEL bilateral lumbar l4-l5 medial branch block Chantell Cruz MD [address] [place] [address] Phone: tel: fax: Referral ID Status Reason Start Date Expiration Date Visits Re quested Visits Authorized [id number] 01/02/2025 1 1 [facility] for visit Narrative* Auth/Cert (Routine) Specialty Diagnoses / Procedures Referred By Contac t Referred To Contact Diagnoses Spondylosis without myelopathy or radiculopathy, lumbar region Spondylosis without myelopathy or radiculopathy, lumbar region Procedures ND NJX DX/THER AGT PVRT FACET JT LMBR/SAC 1 LEVEL bilateral lumbar l4-l5 medial branch block #2 Chantell Cruz MD [facility] [place] [address] Phone: tel: fax: Referral ID Status Reason Start Date Expiration Date Visits Re quested Visits Authorized [id number] 01/27/2025 1 1 [facility] for visit Narrative* Auth/Cert (Routine) Specialty Diagnoses / Procedures Referred By Contac t Referred To Contact Diagnoses Spondylosis without myelopathy or radiculopathy, lumbar region Spondylosis without myelopathy or radiculopathy, lumbar region Procedures ND NJX DX/THER AGT PVRT FACET JT LMBR/SAC 1 LEVEL left lumbar l4-l5 medial branch block Chantell Cruz MD [address] [place] [address] Phone: tel: fax: Referral ID Status Reason Start Date Expiration Date Visits Re quested Visits Authorized [id number] 04/19/2025 1 1 [facility] for visit Narrative* Auth/Cert (Routine) Specialty Diagnoses / Procedures Referred By Contac t Referred To Contact Diagnoses Spondylosis without myelopathy or radiculopathy, lumbar region Spondylosis without myelopathy or radiculopathy, lumbar region Procedures ND NJX DX/THER AGT PVRT FACET JT LMBR/SAC 1 LEVEL left lumbar l4-l5 medial branch block #2 Chantell Cruz MD [address] [place] [address] Phone: tel: fax: Referral ID Status Reason Start Date Expiration Date Visits Re quested Visits Authorized 05/26/2025 [address] [facility] Summary Purpose Family History No Family History Records FoundNo Family History Records FoundNo Family History Records FoundNo Family History Records FoundNo Family History Records FoundNo Family History Records Found Advance Directives No Advanced Directives Records FoundDocuments on File Type Date Recorded Patient Chiller Hand Expl anation Advance Directives and Living Will Power of Table Cover Folder Latest Code Status on File Code Status Date Activated Date Inactivated Comments Full Code 02/14/2018 5:05 AM 02/16/2018 1:12 PM Full Code 11/30/2017 5:15 PM 12/01/2017 7:25 PM Full Code 11/30/2017 10:40 AM 11/30/2017 5:07 PM Documents on File Type Date Recorded Patient Chiller Hand Expl anation ACP-Advance Directive ACP-Power of Table Cover Folder Latest Code Status on File Code Status [...] 11:31 AM Date Activated Date Inactivated Comments 05/19/2025 9:30 AM 05/20/2025 2:38 AM Date Activated Date Inactivated Comments 02/03/2025 8:46 AM 02/03/2025 12:31 PM Date Activated Date Inactivated Comments 01/20/2025 12:43 PM 01/20/2025 4:45 PM Date Activated Date Inactivated Comments 12/26/2024 8:16 AM 12/26/2024 11:51 AM Date Activated Date Inactivated Comments 11/21/2024 7:12 AM 11/21/2024 11:31 AM Date Activated Date Inactivated Comments 05/19/2025 9:30 AM 05/20/2025 2:38 AM Date Activated Date Inactivated Comments 02/03/2025 8:46 AM 02/03/2025 12:31 PM Date Activated Date Inactivated Comments 01/20/2025 12:43 PM 01/20/2025 4:45 PM Date Activated Date Inactivated Comments 12/26/2024 8:16 AM 12/26/2024 11:51 AM Date Activated Date Inactivated Comments 11/21/2024 7:12 AM 11/21/2024 11:31 AM Date Activated Date Inactivated Comments 06/23/2025 9:38 AM 06/23/2025 1:44 PM Date Activated Date Inactivated Comments 05/19/2025 9:30 AM 05/20/2025 2:38 AM Date Activated Date Inactivated Comments 02/03/2025 8:46 AM 02/03/2025 12:31 PM Date Activated Date Inactivated Comments 01/20/2025 12:43 PM 01/20/2025 4:45 PM Date Activated Date Inactivated Comments 12/26/2024 8:16 AM 12/26/2024 11:51 AM Date Activated Date Inactivated Comments 06/23/2025 9:38 AM 06/23/2025 1:44 PM Date Activated Date Inactivated Comments 05/19/2025 9:30 AM 05/20/2025 2:38 AM Date Activated Date Inactivated Comments 02/03/2025 8:46 AM 02/03/2025 12:31 PM Date Activated Date Inactivated Comments 01/20/2025 12:43 PM 01/20/2025 4:45 PM Date Activated Date Inactivated Comments 12/26/2024 8:16 AM 12/26/2024 11:51 AM Discharge Instructions * Instructions* Chantell Cruz [...] one documented in this encounter* Instructions* Josiah Hannon, RN - 01/16/2021 Upper GI Endoscopy: What [...] mild sore throat. You may use an [id number] chloraseptic spray, gargle with warm salt water, [...] -same with gastritis and sigmoid polyp Admission [id number] Discharge [id number] Admitting physician-tuyet Condition on discharge stable documented [...] Vitamin D deficiency, unspecified March 192024 4:42pm Chief Complaint Admit Date Rocephin injection January 17, 2025 4:12 pm Urinary tract infection February 28, 2025 4 :11pm medication refills March 14, 2025 3:49p m labs to be drawn April 05, 2025 4:42 pm Reason for Visit Admit Date Cystitis January 17, 2025 4:12 pm Cystitis February 28, 2025 4:11p m Chronic lower back pain February 28, 2025 4 :11pm Hyperlipidemia LDL goal <130 March 14, 2 025 3:49pm Multiple joint pain March 14, 2025 3:49p m Hypertension March 14, 2025 3:49p m Chronic kidney disease, stage 3b April 052024 4:42pm Vitamin D deficiency, unspecified March 192024 4:42pm Ache in joint April 28, 2025 5:19 pm Chronic kidney disease, stage 3b April 282024 5:19pm Elevated PTHrP level April 28, 2025 5:1 9pm Fatigue April 28, 2025 5:19 pm Lightheaded April 28, 2025 5:19 pm Multiple joint pain April 28, 2025 5:19 pm Chief Complaint Admit Date Urinary tract infection February 28, 2025 4 :11pm medication refills March 14, 2025 3:49p m labs to be drawn April 05, 2025 4:42 pm Urinary tract infection May 16, 2025 4:40pm Reason for Visit Admit Date Cystitis February 28, 2025 4:11p m Chronic lower back pain February 28, 2025 4 :11pm Hyperlipidemia LDL goal <130 March 14, 2 025 3:49pm Multiple joint pain March 14, 2025 3:49p m Hypertension March 14, 2025 3:49p m Chronic kidney disease, stage 3b April 052024 4:42pm Vitamin D deficiency, unspecified March 192024 4:42pm Ache in joint April 28, 2025 5:19 pm Chronic kidney disease, stage 3b April 282024 5:19pm Elevated PTHrP level April 28, 2025 5:1 9pm Fatigue April 28, 2025 5:19 pm Lightheaded April 28, 2025 5:19 pm Multiple joint pain April 28, 2025 5:19 pm Cystitis May 16, 2025 4:40 pm Frequency of urination May 16, 2025 4 :40pm Reason for Referral Specialty Diagnoses / Procedures Referred By Contandrea t Referred To Contact Diagnoses Shortness of breath Precordial chest pain Procedures Nuclear EXERCISE stress test with myocardial perfusion Ba Hull MD [address] [place] [address] [address] [place] [address] Referral ID Status Reason Start Date Expiration Date V isits Requested Visits Authorized [id number] Pending Review 07/31/2023 01/27/2024 1 1 Specialty Diagnoses / Procedures Referred By Twan t Referred To Contact Cardiology Diagnoses Dizziness Procedures Cardiac holter monitor (8- 15 days) ND EXTERNAL ECG REC>48HR<7D REVIEW & INTERPRETATION ND EXTERNAL ECG REC>48HR<7D RECORDING ND EXTERNAL ECG REC>7D<15D RECORDING ND EXTERNAL ECG REC>[id number]<15D REVIEW & INTERPRETATION Ba Hull MD [address] [facility] [address] [place] [address] Referral ID Status Reason Start Date Expiration Date V isits Requested Visits Authorized [id number] Pending Review 07/31/2023 01/27/2024 1 1 Referral ID Status Reason Start Date Expiration Date Visits Re quested Visits Authorized [id number] Closed 07/31/2023 01/27/2024 1 1 Specialty Diagnoses / Procedures Referred By Contac t Referred To Contact Nuclear Medicine Diagnoses Shortness of breath Precordial chest pain Procedures Nuclear EXERCISE stress test with myocardial perfusion Ba Hull MD [address] [facility] [address] [place] [address] Referral ID Status Reason Start Date Expiration Date Visits Re quested Visits Authorized [id number] Closed 07/31/2023 01/27/2024 1 1 Additional Source Comments INFORMATION SOURCE (unrecogn ized section and content) DATE CREATED AUTHOR 04/08/2018 [facility] DATE CREATED AUTHOR AUTHOR'S ORGANIZ ATION 01/18/2021 [facility] DATE CREATED AUTHOR AUTHOR'S ORGANIZ ATION 06/13/2022 [facility] DATE CREATED AUTHOR AUTHOR'S ORGANIZ ATION 06/18/2022 [facility] DATE CREATED AUTHOR AUTHOR'S ORGANIZ ATION 05/27/2025 [facility] DATE CREATED AUTHOR AUTHOR'S ORGANIZ ATION 07/30/2025 [facility] Care Teams (unrecognized sec tion and content) Journeyman 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 Relationship Specialty Start Date End Date Katarina Stevens [address] [place], [place] [id number] PCP - General 06/18/17 Journeyman Plumber Relationship Specialty Start Date End Date Katarina Stevens [address] [place] [id number] PCP - General 06/18/17 Team Status: Active Member Role Status Dates Katarina Stevens CONSTRUCTION OR LEAK GANG LABORER, CONSTRUCTION OR LEAK GANG LABORER-C Primary Care Provider Active Team Status: Inactive Member Role Status Dates Katarina Stevens CONSTRUCTION OR LEAK GANG LABORER, CONSTRUCTION OR LEAK GANG LABORER-C Primary Care Pr ovider, Attending Provider, Referring Provider Active Team Status: Inactive Member Role Status Dates Katarina Stevens CONSTRUCTION OR LEAK GANG LABORER, CONSTRUCTION OR LEAK GANG LABORER-C Primary Care Provider, Attend ing Provider Active Team Status: Active Member Role Status Dates Katarina Stevens CONSTRUCTION OR LEAK GANG LABORER, CONSTRUCTION OR LEAK GANG LABORER-C Primary Care Pr ovider, Attending Provider, Referring Provider Active Journeyman 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 Relationship Specialty Start Date End Date Katarina Stevens [address] [place] [address] PCP - General 06/18/17 Journeyman Plumber Relationship Specialty Start Date End Date Katarina Stevens [address] [facility] [place] [address] PCP - General 06/18/17 Journeyman Plumber Relationship Specialty Start Date End Date Rodney Katarina Puri, BURGLAR ALARM INSPECTOR.FASHION CONSULTANT SELLING [address] [place] [address] PCP - General Family Medicine 02/13/18 Journeyman Plumber Relationship Specialty Start Date End Date Rodney Katarina Puri, BURGLAR ALARM INSPECTOR.FASHION CONSULTANT SELLING [address] [place] [address] PCP - General Family Medicine 02/13/18 Journeyman Plumber Relationship Specialty Start Date End Date Katarina Stevens [address] [place] [address] PCP - General 06/18/17 Journeyman Plumber Relationship Specialty Start Date End Date Katarina Stevens [address] [place] [address] PCP - General 06/18/17 Journeyman Plumber Relationship Specialty Start Date End Date Katarina Stevens [address] [place], [place] [address] PCP - General 06/18/17 Journeyman Plumber Relationship Specialty Start Date End Date Katarina Stevens [address] [place] [address] PCP - General 06/18/17 Journeyman Plumber Relationship Specialty Start Date End Date Katarina Stevens [address] [place] [place], [place] [id number] PCP - General 06/18/17 Team Status: Active Member Role Status Dates Katarina Stevens CONSTRUCTION OR LEAK GANG LABORER, CONSTRUCTION OR LEAK GANG LABORER-C Primary Care Provider, Attend ing Provider Active Journeyman Plumber Relationship Specialty Start Date End Date Katarina Stevens [address] [place] [address] PCP - General 06/18/17 Journeyman Plumber Relationship Specialty Start Date End Date Katarina Stevens [address] [place] [address] PCP - General 06/18/17 Journeyman Plumber Relationship Specialty Start Date End Date Katarina Stevens [address] [place] [address] PCP - General 06/18/17 Journeyman Plumber Relationship Specialty Start Date End Date Katarina Stevens [address] [place], [place] [id number] PCP - General 06/18/17 Journeyman Plumber Relationship Specialty Start Date End Date Katairna Stevens [address] [place] [address] PCP - General 06/18/17 Journeyman Plumber Relationship Specialty Start Date End Date Katarina Stevens [address] [place], [place] [id number] PCP - General 06/18/17 Journeyman Plumber Relationship Specialty Start Date End Date Katarina Stevens [address] [place], [place] [id number] PCP - General 06/18/17 Journeyman Plumber Relationship Specialty Start Date End Date Katarina Stevens [address] [place], [place] [id number] PCP - General 06/18/17 Journeyman Plumber Relationship Specialty Start Date End Date Katarina Stevens [address] [place], [place] [id number] PCP - General 06/18/17 Team Status: Inactive Member Role Status Dates Katarina Stevens CONSTRUCTION OR LEAK GANG LABORER, CONSTRUCTION OR LEAK GANG LABORER-C Primary Care Provider Active Start: September 13, 2024 End: September 13, 2024 Katarina Stevens CONSTRUCTION OR LEAK GANG LABORER, CONSTRUCTION OR LEAK GANG LABORER-C Attending Provider Active Start: September 13, 2024 End: September 13, 2024 Katarina Stevens CONSTRUCTION OR LEAK GANG LABORER, CONSTRUCTION OR LEAK GANG LABORER-C Referring Provider Active Start: September 13, 2024 End: September 13, 2024 Team Status: Inactive Member Role Status Dates Katarina Stevens CONSTRUCTION OR LEAK GANG LABORER, CONSTRUCTION OR LEAK GANG LABORER-C Primary Care Provider Active Start: September 29, 2024 End: September 29, 2024 Katarina Stevens CONSTRUCTION OR LEAK GANG LABORER, CONSTRUCTION OR LEAK GANG LABORER-C Attending Provider Active Start: September 29, 2024 End: September 29, 2024 Katarina Stevens CONSTRUCTION OR LEAK GANG LABORER, CONSTRUCTION OR LEAK GANG LABORER-C Referring Provider Active Start: September 29, 2024 End: September 29, 2024 Team Status: Inactive Member Role Status Dates Katarina Stevens CONSTRUCTION OR LEAK GANG LABORER, CONSTRUCTION OR LEAK GANG LABORER-C Primary Care Provider Active Start: September 29, 2024 End: September 29, 2024 Katarina Stevens CONSTRUCTION OR LEAK GANG LABORER, CONSTRUCTION OR LEAK GANG LABORER-C Attending Provider Active Start: September 29, 2024 End: September 29, 2024 Team Status: Inactive Member Role Status Dates Katarina Stevens CONSTRUCTION OR LEAK GANG LABORER, CONSTRUCTION OR LEAK GANG LABORER-C Primary Care Provider Active Start: December 08, 2024 End: December 08, 2024 Katarinatim ArteagaStevens CONSTRUCTION OR LEAK GANG [employer]ORER, CONSTRUCTION OR LEAK GANG LABORER-C Attending Provider Active Start: December 08, 2024 End: December 08, 2024 Katarina Stevens CONSTRUCTION OR LEAK GANG LABORER, CONSTRUCTION OR LEAK GANG LABORER-C Referring Provider Active Start: December 08, 2024 End: December 08, 2024 Team Status: Inactive Member Role Status Dates Katarinatim ArteagaStevens CONSTRUCTION OR LEAK GANG LABORER, CONSTRUCTION OR LEAK GANG LABORER-C Primary Care Provider Active Start: January 04, 2025 End: January 04, 2025 Katarina Stevens CONSTRUCTION OR LEAK GANG LABORER, CONSTRUCTION OR LEAK GANG LABORER-C Attending Provider Active Start: January 04, 2025 End: January 04, 2025 Katarina Stevens CONSTRUCTION OR LEAK GANG LABORER, CONSTRUCTION OR LEAK GANG LABORER-C Referring Provider Active Start: January 04, 2025 End: January 04, 2025 Journeyman Plumber Relationship Specialty Start Date End Date Katarina Stevens [address] [place], [place] [address] PCP - General 06/18/17 Journeyman Plumber Relationship Specialty Start Date End Date Katarina Stevens [address] [place], [place] [id number] PCP - General 06/18/17 Journeyman Plumber Relationship Specialty Start Date End Date Katarina Stevens [address] [place], [place] [id number] PCP - General 06/18/17 Journeyman Plumber Relationship Specialty Start Date End Date Katarina Stevens [address] [place] [address] PCP - General 06/18/17 Journeyman Plumber Relationship Specialty Start Date End Date Katarina Stevens [address] [place] [address] PCP - General 06/18/17 Team Status: Inactive Member Role Status Dates Katarina Stevens CONSTRUCTION OR LEAK GANG LABORER, CONSTRUCTION OR LEAK GANG LABORER-C Primary Care Provider Active Start: January 17, 2025 End: January 17, 2025 Katarina Stevens CONSTRUCTION OR LEAK GANG LABORER, CONSTRUCTION OR LEAK GANG LABORER-C Attending Provider Active Start: January 17, 2025 End: January 17, 2025 Katarina Stevens CONSTRUCTION OR LEAK GANG LABORER, CONSTRUCTION OR LEAK GANG LABORER-C Referring Provider Active Start: January 17, 2025 End: January 17, 2025 Team Status: Inactive Member Role Status Dates Katarina Stevens CONSTRUCTION OR LEAK GANG LABORER, CONSTRUCTION OR LEAK GANG LABORER-C Primary Care Provider Active Start: February 28, 2025 End: February 28, 2025 Katarina Stevens CONSTRUCTION OR LEAK GANG LABORER, CONSTRUCTION OR LEAK GANG LABORER-C Attending Provider Active Start: February 28, 2025 End: February 28, 2025 Katarina Stevens CONSTRUCTION OR LEAK GANG LABORER, CONSTRUCTION OR LEAK GANG LABORER-C Referring Provider Active Start: February 28, 2025 End: February 28, 2025 Team Status: Inactive Member Role Status Dates Katarina Stevnes CONSTRUCTION OR LEAK GANG LABORER, CONSTRUCTION OR LEAK GANG LABORER-C Primary Care Provider Active Start: March 14, 2025 End: March 14, 2025 Katarina Stevens CONSTRUCTION OR LEAK GANG LABORER, CONSTRUCTION OR LEAK GANG LABORER-C Attending Provider Active Start: March 14, 2025 End: March 14, 2025 Katarina Stevens CONSTRUCTION OR LEAK GANG LABORER, CONSTRUCTION OR LEAK GANG LABORER-C Referring Provider Active Start: March 14, 2025 End: March 14, 2025 Team Status: Inactive Member Role Status Dates Katairna Stevens CONSTRUCTION OR LEAK GANG LABORER, CONSTRUCTION OR LEAK GANG LABORER-C Primary Care Provider Active Start: April 05, 2025 End: April 05, 2025 Katarina Stevens CONSTRUCTION OR LEAK GANG LABORER, CONSTRUCTION OR LEAK GANG LABORER-C Attending Provider Active Start: April 05, 2025 End: April 05, 2025 Katarina Stevens CONSTRUCTION OR LEAK GANG LABORER, CONSTRUCTION OR LEAK GANG LABORER-C Referring Provider Active Start: April 05, 2025 End: April 05, 2025 Journeyman Plumber Relationship Specialty Start Date End Date Katarina Stevens [address] [place] [address] PCP - General 06/18/17 Team Status: Active Member Role/Relationship Status Dates Katarina Stevens NP, CONSTRUCTION OR LEAK GANG LABORER-C Primary Care Provider Active Team Status: Inactive Member Role/Relationship Status Dates Katarina Stevens CONSTRUCTION OR LEAK GANG LABORER, CONSTRUCTION OR LEAK GANG LABORER-C Primary Care Provider Active Start: January 17, 2025 End: January 17, 2025 Katarina Stevens CONSTRUCTION OR LEAK GANG LABORER, CONSTRUCTION OR LEAK GANG LABORER-C Attending Provider Active Start: January 17, 2025 End: January 17, 2025 Katarina Stevens CONSTRUCTION OR LEAK GANG LABORER, CONSTRUCTION OR LEAK GANG LABORER-C Referring Provider Active Start: January 17, 2025 End: January 17, 2025 Team Status: Inactive Member Role/Relationship Status Dates Katarina Stevens CONSTRUCTION OR LEAK GANG LABORER, CONSTRUCTION OR LEAK GANG LABORER-C Primary Care Provider Active Start: February 28, 2025 End: February 28, 2025 Katarina Stevens CONSTRUCTION OR LEAK GANG LABORER, CONSTRUCTION OR LEAK GANG LABORER-C Attending Provider Active Start: February 28, 2025 End: February 28, 2025 Katarina Stevens CONSTRUCTION OR LEAK GANG LABORER, CONSTRUCTION OR LEAK GANG LABORER-C Referring Provider Active Start: February 28, 2025 End: February 28, 2025 Team Status: Inactive Member Role/Relationship Status Dates Katarina Stevens CONSTRUCTION OR LEAK GANG LABORER, CONSTRUCTION OR LEAK GANG LABORER-C Primary Care Provider Active Start: February 28, 2025 End: February 28, 2025 Katarina Stevens CONSTRUCTION OR LEAK GANG LABORER, CONSTRUCTION OR LEAK GANG LABORER-C Attending Provider Active Start: February 28, 2025 End: February 28, 2025 Katarina Stevens CONSTRUCTION OR LEAK GANG LABORER, CONSTRUCTION OR LEAK GANG LABORER-C Referring Provider Active Start: February 28, 2025 End: February 28, 2025 Team Status: Inactive Member Role/Relationship Status Dates Katarina Stevens CONSTRUCTION OR LEAK GANG LABORER, CONSTRUCTION OR LEAK GANG LABORER-C Primary Care Provider Active Start: March 14, 2025 End: March 14, 2025 Katarina Stevens CONSTRUCTION OR LEAK GANG LABORER, CONSTRUCTION OR LEAK GANG LABORER-C Attending Provider Active Start: March 14, 2025 End: March 14, 2025 Katarina Stevens CONSTRUCTION OR LEAK GANG LABORER, CONSTRUCTION OR LEAK GANG LABORER-C Referring Provider Active Start: March 14, 2025 End: March 14, 2025 Team Status: Inactive Member Role/Relationship Status Dates Katarina Stevens CONSTRUCTION OR LEAK GANG LABORER, CONSTRUCTION OR LEAK GANG LABORER-C Primary Care Provider Active Start: April 05, 2025 End: April 05, 2025 Katarina Stevens CONSTRUCTION OR LEAK GANG LABORER, CONSTRUCTION OR LEAK GANG LABORER-C Attending Provider Active Start: April 05, 2025 End: April 05, 2025 Katarina Stevens CONSTRUCTION OR LEAK GANG LABORER, CONSTRUCTION OR LEAK GANG LABORER-C Referring Provider Active Start: April 05, 2025 End: April 05, 2025 Team Status: Inactive Member Role/Relationship Status Dates Katarina Stevens CONSTRUCTION OR LEAK GANG LABORER, CONSTRUCTION OR LEAK GANG LABORER-C Primary Care Provider Active Start: April 05, 2025 End: April 05, 2025 Katarina Stevens CONSTRUCTION OR LEAK GANG LABORER, CONSTRUCTION OR LEAK GANG LABORER-C Attending Provider Active Start: April 05, 2025 End: April 05, 2025 Katarina Stevens CONSTRUCTION OR LEAK GANG LABORER, CONSTRUCTION OR LEAK GANG LABORER-C Referring Provider Active Start: April 05, 2025 End: April 05, 2025 Team Status: Inactive Member Role/Relationship Status Dates Katarina Stevens CONSTRUCTION OR LEAK GANG LABORER, CONSTRUCTION OR LEAK GANG LABORER-C Primary Care Provider Active Start: April 28, 2025 End: April 28, 2025 Katarina Stevens CONSTRUCTION OR LEAK GANG LABORER, CONSTRUCTION OR LEAK GANG LABORER-C Attending Provider Active Start: April 28, 2025 End: April 28, 2025 Katarina Stevens CONSTRUCTION OR LEAK GANG LABORER, CONSTRUCTION OR LEAK GANG LABORER-C Referring Provider Active Start: April 28, 2025 End: April 28, 2025 Journeyman Plumber Relationship Specialty Start Date End Date Katarina Stevens [address] [place] [address] PCP - General 06/18/17 Journeyman Plumber Relationship Specialty Start Date End Date Katarina Stevens [address] [place], [place] [address] PCP - General 06/18/17 Team Status: Inactive Member Role/Relationship Status Dates Katarina Stevens CONSTRUCTION OR LEAK GANG LABORER, CONSTRUCTION OR LEAK GANG LABORER-C Primary Care Provider Active Start: February 28, 2025 End: February 28, 2025 Katarina Stevens CONSTRUCTION OR LEAK GANG LABORER, CONSTRUCTION OR LEAK GANG LABORER-C Attending Provider Active Start: February 28, 2025 End: February 28, 2025 Katarina Stevens CONSTRUCTION OR LEAK GANG LABORER, CONSTRUCTION OR LEAK GANG LABORER-C Referring Provider Active Start: February 28, 2025 End: February 28, 2025 Team Status: Inactive Member Role/Relationship Status Dates Katarina Stevens CONSTRUCTION OR LEAK GANG LABORER, CONSTRUCTION OR LEAK GANG LABORER-C Primary Care Provider Active Start: March 14, 2025 End: March 14, 2025 Katarina Stevens CONSTRUCTION OR LEAK GANG LABORER, CONSTRUCTION OR LEAK GANG LABORER-C Attending Provider Active Start: March 14, 2025 End: March 14, 2025 Katarina Stevens CONSTRUCTION OR LEAK GANG LABORER, CONSTRUCTION OR LEAK GANG LABORER-C Referring Provider Active Start: March 14, 2025 End: March 14, 2025 Team Status: Inactive Member Role/Relationship Status Dates Katarina Stevens CONSTRUCTION OR LEAK GANG LABORER, CONSTRUCTION OR LEAK GANG LABORER-C Primary Care Provider Active Start: April 05, 2025 End: April 05, 2025 Katarina Stevens CONSTRUCTION OR LEAK GANG LABORER, CONSTRUCTION OR LEAK GANG LABORER-C Attending Provider Active Start: April 05, 2025 End: April 05, 2025 Katarina Stevens CONSTRUCTION OR LEAK GANG LABORER, CONSTRUCTION OR LEAK GANG LABORER-C Referring Provider Active Start: April 05, 2025 End: April 05, 2025 Team Status: Inactive Member Role/Relationship Status Dates Katarina Stevens CONSTRUCTION OR LEAK GANG LABORER, CONSTRUCTION OR LEAK GANG LABORER-C Primary Care Provider Active Start: April 28, 2025 End: April 28, 2025 Katarina Stevens CONSTRUCTION OR LEAK GANG LABORER, CONSTRUCTION OR LEAK GANG LABORER-C Attending Provider Active Start: April 28, 2025 End: April 28, 2025 Katarina Stevens CONSTRUCTION OR LEAK GANG LABORER, CONSTRUCTION OR LEAK GANG LABORER-C Referring Provider Active Start: April 28, 2025 End: April 28, 2025 Team Status: Inactive Member Role/Relationship Status Dates Katarina Stevens CONSTRUCTION OR LEAK GANG LABORER, CONSTRUCTION OR LEAK GANG LABORER-C Primary Care Provider Active Start: May 16, 2025 End: May 16, 2025 Katarina Stevens CONSTRUCTION OR LEAK GANG LABORER, CONSTRUCTION OR LEAK GANG LABORER-C Attending Provider Active Start: May 16, 2025 End: May 16, 2025 Katarina Stevens CONSTRUCTION OR LEAK GANG LABORER, CONSTRUCTION OR LEAK GANG LABORER-C Referring Provider Active Start: May 16, 2025 End: May 16, 2025 Team Status: Inactive Member Role/Relationship Status Dates Katarina Stevens CONSTRUCTION OR LEAK GANG LABORER, CONSTRUCTION OR LEAK GANG LABORER-C Primary Care Provider Active Start: May 16, 2025 End: May 16, 2025 Katarina Stevens CONSTRUCTION OR LEAK GANG LABORER, CONSTRUCTION OR LEAK GANG LABORER-C Attending Provider Active Start: May 16, 2025 End: May 16, 2025 Katarina Stevens NP, CONSTRUCTION OR LEAK GANG LABORER-C Referring Provider Active Start: May 16, 2025 End: May 16, 2025 Journeyman Plumber Relationship Specialty Start Date End Date Katarina Stevens APRN.CNP [address] [place] [address] PCP - General Family Medicine 02/13/18 Journeyman Plumber Relationship Specialty Start Date End Date Katarina Stevens APRN.CNP [address] [place] [address] PCP - General Family Medicine 02/13/18 Goals (unrecognized section and content) Goals may [...] or prosecute any alcohol or drug abuse patient.[facility] the event this information is protected by the Federal Confidentiality of Alcohol and Drug Abuse Patient Records regulations: The Federal rules restrict any use of the information to criminally investigate or prosecute any alcohol or drug abuse patient.[facility] the event this information is protected by the Federal Confidentiality of Alcohol and Drug Abuse Patient Records regulations: The Federal rules restrict any use of the information to criminally investigate or prosecute any alcohol or drug abuse patient.[facility] the event this information is protected by the Federal Confidentiality of Alcohol and Drug Abuse Patient Records regulations: The Federal rules restrict any use of the information to criminally investigate or prosecute any alcohol or drug abuse patient.[facility] Reason for Visit (unrecogniz ed section and content) Reason Comments Naturopathic Oncology Provider Exam Reason Comments Results Reason Comments New Patient Shortness of Breath Dizziness Specialty Diagnoses / Procedures Referred By Contac t Referred To Contact Cardiology Diagnoses Dizziness Procedures Cardiac holter monitor (8- 15 days) ND EXTERNAL ECG REC>48HR<7D REVIEW & INTERPRETATION ND EXTERNAL ECG REC>48HR<7D RECORDING ND EXTERNAL ECG REC>7D<15D RECORDING ND EXTERNAL ECG REC>7D<15D REVIEW & INTERPRETATION Ba Hull MD [address] [place] [address] Referral ID Status Reason Start Date Expiration Date Visits Re quested Visits Authorized [id number] Closed 07/31/2023 01/27/2024 1 1 Specialty Diagnoses / Procedures Referred By Contac t Referred To Contact Nuclear Medicine Diagnoses Shortness of breath Precordial chest pain Procedures Nuclear EXERCISE stress test with myocardial perfusion Ba Hull MD [address] [facility] [address] [place] [address] Referral ID Status Reason Start Date Expiration Date Visits Re quested Visits Authorized [id number] Closed 07/31/2023 01/27/2024 1 1 Reason Comments [...] says she still is doing her exercises. Reason Onset Date Comments Other 05/22/2025 Follow up proced ure Reason Comments Naturopathic Oncology Provider Exam Reason Comments Follow-up Pt is here for a fol low up from the Left Lumbar RFA which was done on 06/23/2025, pt states she has 95% relief from that pain. She has noticed pain higher in her back since the procedure. This pain becomes severe when she is standing/movement for 30-40mins. FOR RECORDS PERTAINING TO PATIENTS WHO ARE [...] BE BASED ON THE PRIMARY CLINICAL RECORDS. [employer] provides no warranty or guarantee of the accuracy or completeness of information in this document.
[2025-09-26 22:28] LABS: Cholesterol 290 mg/dL (<=200); Low Density Lipoprotein Calc. 175 mg/dL; Triglycerides 343 mg/dL; Very Low Density Lipoprotein 69 mg/dL (5-40); cholesterol:hdl ratio screen 5.98
[2025-09-29 14:09] LABS: Anti-Chromatin <0.2 AI (0.0-0.9); Anti-Jo <0.2 AI (0.0-0.9); Anti-dsDNA Ab <1 IU/mL (0-9); SJOGREN'S Anti-SS-A test 0.3 AI (0.0-0.9); SJOGREN'S Anti-SS-B test < 0.2 AI (0.0-0.9); Vitamin D 1,25-Dihydroxy 58.7 pg/mL (24.8-81.5)
== END | disposition home or self-care (01) ==
PROVIDERS: PCP Nurse Practitioner; Visit Provider Nurse Practitioner
DX: M79.7 Fibromyalgia (principal); E55.9 Vitamin D deficiency, unspecified; M25.50 Pain in unspecified joint; M15.0 Primary generalized (osteo)arthritis; E78.5 Hyperlipidemia, unspecified; M48.061 Spinal stenosis, lumbar region without neurogenic claudication
CPT/HCPCS: 80061; 82652; 86225; 86235; 86431